=== PATIENT | female | born 1950 | race Caucasian/White ===

== ENCOUNTER 2016-07-05 14:38 | Inpatient (IN) | payer MEDICARE, BC ==
[~2016-07-05] VITALS: Ht 165.1 cm; Wt 110.2 kg
[~2016-07-05 14:38] MED LIST: ACET325T16 PO; ALPR0.5T PO; AMLO10TA2 PO; ASPI81TA2 PO; ASPI81TA50 PO; ATOR10TA60 PO; BUPR300T4 PO; CELE200C PO; CELE400C PO; CHOL20002 PO; CITA20TA5 PO; DULO60CA6 PO; FERR325T31 PO; FURO20TA3 PO; FURO40TA4 PO; GABA-585 PO; GABA-586 PO; HYDR-2666 PO; HYDR-2672 PO; HYDR-2762 PO; HYDR-965 PO; HYDR12.58 PO; HYDR25TA9 PO; LOSA100T6 PO; MELO-150 PO; MULT-246 PO; NIAC500T82 PO; OXYB5TAB7 PO; PIPE3.375 IV; POTA10CA PO; POTA10TA17 PO; VANC1PLA9 IV; Warfarin Sodium MC; vitamin D 3
[2016-07-05] MEDS ORDERED: DAPT500V IV (15:25)
[2016-07-05] MEDS ORDERED: IV RINGERS,LACTATED 1000ML 1,000 ML IV SCH (15:36)
[2016-07-05] MEDS ORDERED: FENTANYL PF 100 MCG/2 ML VIAL. IV PRN ×2 (15:45→22:00)
[2016-07-05] MEDS ORDERED: HYDROMORPHONE 2 MG/ML VIAL. IV PRN (15:45)
[2016-07-05] MEDS ORDERED: PROCHLORPERAZINE 10 MG/2 ML VIAL. IV PRN (15:45)
[2016-07-05] MEDS ORDERED: LIDOCAINE 1% 1 ML SYRINGE. ID PRN (15:45)
[2016-07-05] MEDS ORDERED: ONDANSETRON PF 4 MG/2 ML VIAL. IV PRN ×2 (15:45→22:00)
[2016-07-05] MEDS ORDERED: ONDANSETRON PF 4 MG/2 ML VIAL. ONE (19:20)
[2016-07-05] MEDS ORDERED: PROPOFOL 20 ML IV ONE (19:20)
[2016-07-05] MEDS ORDERED: DEXAMETHASONE SOD PHOS 20 MG/5 ML VIAL. ONE (19:20)
[2016-07-05] MEDS ORDERED: LIDOCAINE 2% 100 MG/5 ML DISP.SYRIN. ONE (19:20)
[2016-07-05] MEDS ORDERED: EPHEDRINE PF IN SALINE 50 MG/5 ML DISP.SYRIN. IV ONE ×2 (19:50→20:23)
[2016-07-05] MEDS ORDERED: FENTANYL PF 100 MCG/2 ML VIAL. ONE (19:55)
[2016-07-05] MEDS ORDERED: BUPIVACAINE 0.5% 50 ML VIAL. ONE (20:43)
[2016-07-05] MEDS ORDERED: DESFLURANE > 120 MINUTES IH ONE (21:06)
[2016-07-05] MEDS ORDERED: SEVOFLURANE > 120 MINUTES. IH ONE (21:06)
[2016-07-05] MEDS ORDERED: PHENYLEPHRINE in 0.9% NACL PF 1 MG/10 ML DISP.SYRIN. IV ONE (21:07)
[2016-07-05] MEDS: FENTANYL PF 100 MCG/2 ML VIAL. IV PRN ×4 (21:22→22:08)
[2016-07-05] MEDS: MORPHINE SULFATE 2 MG/ML DISP.SYRIN. IV PRN ×2 (21:37→21:49)
--- NOTE | 2016-07-05 21:57 | PDOC ---
BRIEF OPERATIVE NOTE Date: Jul 05, 2016 Pre-Op Diagnosis left hip drainage Post-Op Diagnosis same plus partial detachment of greater trochanter and gluteus medius attachment Procedure Performed repair gluteus medius and irrigation debridement and closure left hip Surgeon Florence Anesthesia Type: General Blood Loss <100cc Specimens Obtained intraop cultures Findings above, no gross infection Complications none JAYLEEN SONG MD Jul 05, 2016 21:57
[2016-07-05] MEDS ORDERED: POLYETHYLENE GLYCOL 3350 17 GM PACKET. PO PRN (22:00)
[2016-07-05] MEDS ORDERED: HYDROCODONE/APAP 7.5/325MG TABLET. PO PRN ×3 (22:00)
[2016-07-05] MEDS ORDERED: MORPHINE SULFATE 2 MG/ML DISP.SYRIN. IV PRN (22:00)
[2016-07-05] MEDS ORDERED: MORPHINE SULFATE 4 MG/ML DISP.SYRIN. IV PRN (22:00)
[2016-07-05] MEDS ORDERED: DEXTROSE 50% 25 GM / 50ML DISP.SYRIN. IV PRN (22:00)
[2016-07-05] MEDS ORDERED: OXYCODONE IR 5 MG TABLET. PO PRN (22:00)
[2016-07-05] MEDS ORDERED: ALPRAZOLAM 0.5 MG TABLET PO PRN (22:00)
[2016-07-05 22:15] VITALS: BP 116/53
[2016-07-05] MEDS ORDERED: ATORVASTATIN CALCIUM 10 MG TABLET. PO SCH (22:15)
[2016-07-05 22:30] VITALS: BP 128/69
[2016-07-05 22:45] VITALS: BP 135/72
[2016-07-05 23:00] VITALS: BP 127/58
[2016-07-05 23:30] VITALS: BP 131/65
[2016-07-06] VITALS: BP 142/63
[2016-07-06] MEDS ORDERED: PIPERACILLIN/TAZOBACTAM 3.375 GM VIAL IV SCH
[2016-07-06] MEDS: PIPERACILLIN/TAZOBACTAM 3.375 GM in IV NORMAL SALINE 50ML 50 ML IV SCH ×2 (00:22→05:47)
[2016-07-06 01:00] VITALS: BP 158/63
[2016-07-06 02:00] VITALS: BP 134/61
[2016-07-06] MEDS ORDERED: MAGNESIUM HYDROXIDE 2,400 MG/30 ML ORAL.SUSP. PO PRN (06:00)
[2016-07-06] MEDS ORDERED: CHOLECALCIFEROL (VITAMIN D3) 1,000 UNIT TABLET PO SCH (06:00)
[2016-07-06] MEDS ORDERED: OXYBUTYNIN CHLORIDE 5 MG TABLET PO SCH (06:00)
[2016-07-06 07:00] VITALS: BP 131/64
--- NOTE | 2016-07-06 07:32 | DISCH ---
DISCHARGE INSTRUCTIONS Condition on Discharge Condition on Discharge: Stable Activity After Discharge Activity Instructions for Disc: Activity as tolerated Weight Bearing Status after Di: As tolerated Diet after Discharge Diet after Discharge: Regular Wound Incision Care Wound/Incision Care: Other, see below Other wound/incision instructi: Keep wound vac intact, change canister only, empty hemovac 2x day as needed Wound Care Equipment: Wound vac Contacting the DRCarol after DC Call your doctor for: Concerns you may have Follow-Up Follow up with: Florence 07/08/16 JAYLEEN SONG MD Jul 06, 2016 07:32
--- NOTE | 2016-07-06 08:41 | OP ---
DATE OF SURGERY: 07/05/2016 PREOPERATIVE DIAGNOSIS: Left hip wound drainage. POSTOPERATIVE DIAGNOSIS: Left hip wound drainage. PROCEDURE: Repair of partial gluteus medius bony avulsion and irrigation and debridement and closure of left hip wound. SURGEON: Miguel Henriquez MD. ANESTHESIA: General. ESTIMATED BLOOD LOSS: Less than 100 mL. COMPLICATIONS: None. OPERATIVE INDICATIONS: The patient is a 66-year-old female that had undergone previous hip arthroplasty, had a greater trochanteric avulsion fracture that was fixated, had some subsequent wound healing problems, questionable issues and cultures, but never really any clear infection, but is on antibiotics currently due to her wound drainage problems and has recently had a wound VAC to help with her healing, but had developed some significant tunneling and failure of this area to resolve and heal. We therefore decided to go back to open the area to undergo exploration cultures and potential closure on consultation of options with Infectious Disease, etc. I had gone over with her risks, benefits, postoperative course of the procedure and the rationale for it. Informed consent was obtained and she agrees to proceed with surgical evaluation and treatment. OPERATIVE TECHNIQUE: The patient was identified, procedure verified, patient placed in the supine position on the operating table. After adequate amounts of general endotracheal anesthesia were administered, she was placed in decubitus left side up. All bony prominences were well padded and left hip was prepped and draped in standard sterile fashion and after timeout was performed, the patient and procedure identified and verified. The area of nonhealing wound was opened up more widely, only serous drainage was noted. There was no gross purulence, odor or other signs of devitalized tissue. I did note several issues. Deep tissue cultures were first taken. She was noted to have a partial avulsion of the greater trochanter. A significant portion of her gluteus medius repair remained intact; however, posterior portion was noted to have avulsed and after debridement of the superior aspect of the tip of the femur, the attached bony fragment and posterior aspect of gluteus medius were reattached with Ethibond suture underneath the trochanteric claw. I noted that while the claw itself could be potentially causing some irritation and not fluid in the area of the hip, removing that would likely result in significant weaknesses, it would be difficult to support the repair and would really not be advised. I did note also that the areas of having difficulty healing were generally scarred down to deeper tissue and were gently elevated. The devitalized tissue was obtained, but any excess proteinaceous exudate was removed. Thorough irrigation carried out with normal saline solution. Hemovac drain was placed deep. Closure of the fascia was obtained with 0 PDS suture. Layered closure of the subcutaneous layer was likewise obtained with 0 PDS primarily in buried fashion very meticulous in a layered closure. Skin closure was accomplished after instillation of 0.5% Marcaine as she appeared to be reacting strongly to any stimulus at the skin even under anesthesia. Skin closure was accomplished with nylon suture 2-0 in a vertical mattress fashion for best apposition and a wound VAC was placed. Sterile dressings were applied. The patient was extubated and transferred to postop holding in stable condition having tolerated the procedure well. MIGUEL HENRIQUEZ MD DR: TANNER/keyanna JOB#: [id number] / [id number]
[2016-07-06] MEDS ORDERED: buPROPion XL 150 MG TAB.ER.24H PO SCH (09:00)
[2016-07-06] MEDS ORDERED: DAPTOMYCIN 500 MG VIAL IV SCH (09:00)
[2016-07-06] MEDS ORDERED: LOSARTAN POTASSIUM 50 MG TABLET. PO SCH (09:00)
[2016-07-06] MEDS ORDERED: AMLODIPINE BESYLATE 10 MG TABLET PO SCH (09:00)
[2016-07-06] MEDS ORDERED: GABAPENTIN 300 MG CAPSULE. PO SCH (09:00)
[2016-07-06] MEDS ORDERED: DULOXETINE HCL 30 MG CAPSULE.DR. PO SCH (09:00)
[2016-07-06] MEDS ORDERED: NORMAL SALINE IV SCH (09:00)
[2016-07-06] MEDS ORDERED: SENNOSIDES/DOCUSATE 8.6/50MG TABLET. PO SCH (09:00)
[2016-07-06] MEDS ORDERED: DAPTOMYCIN IV SCH (09:00)
[2016-07-06 09:51] VITALS: BP 131/64
[2016-07-06] MEDS ORDERED: BISACODYL 10 MG SUPP.RECT PR PRN (16:00)
--- NOTE | 2016-07-06 19:57 | DS ---
DATE OF DISCHARGE: 07/06/2016 PRINCIPAL DIAGNOSIS: Left hip wound drainage and partial gluteus medius injury. FOLLOWUP: With Dr. Henriquez 07/08/2016. ACTIVITIES: Weightbearing as tolerated. No activity restrictions. DISCHARGE MEDICATIONS: Include complete resumption of her normal home medications including IV antibiotics directed by Infectious Disease. Hemovac drain was maintained and is intended to be removed in the office on Monday. DISCHARGE INSTRUCTIONS: I gave the patient instructions on changing and recharging the drain. Wound VAC will be kept on currently with no changes planned at least until Monday at which time we will reevaluate and cannister change only would be required if it gets ____ up. BRIEF DESCRIPTION OF HOSPITAL COURSE: The patient underwent irrigation, debridement and repair of the partial gluteus medius injury and was admitted overnight and overall did well from a pain control standpoint, was noted to be ambulating safely the next day. While her antibiotics were continued in the hospital, we will plan on restarting the home health antibiotics as directed by Infectious Disease for planned course of another 4 weeks and follow up on Monday for reassessment and management of t the drains as noted above. JAYLEEN HENRIQUEZ MD DR: TANNER/keyanna JOB#: [id number] / [id number]
== END 2016-07-06 10:30 | disposition home health service (06) | DRG 909 ==
LOC: SURG 14:38 → 4 NORTH 19:00
PROVIDERS: ADMIT Orthopaedic Surgery; ATTEND Orthopaedic Surgery
PROC: 0LMK0ZZ Reattachment of Left Hip Tendon, Open Approach (ICD-10-PCS; 2016-07-05)
PROC: [UNRECOGNIZED PROCEDURE] (2016-07-05)
PROC: 0KQP0ZZ Repair Left Hip Muscle, Open Approach (ICD-10-PCS; 2016-07-05)
PROC: 0JDC0ZZ Extraction of Pelvic Region Subcutaneous Tissue and Fascia, Open Approach (ICD-10-PCS; 2016-07-05)
PROC: 0JDM0ZZ Extraction of Left Upper Leg Subcutaneous Tissue and Fascia, Open Approach (ICD-10-PCS; principal; 2016-07-05 16:00)
DX: M96.842 Postprocedural seroma of a musculoskeletal structure following a musculoskeletal system procedure (principal); E78.00 Pure hypercholesterolemia, unspecified; I10 Essential (primary) hypertension; Z96.642 Presence of left artificial hip joint; Y93.89 Activity, other specified; Y92.89 Other specified places as the place of occurrence of the external cause; Z88.0 Allergy status to penicillin; Z88.2 Allergy status to sulfonamides; Z90.49 Acquired absence of other specified parts of digestive tract; Z79.899 Other long term (current) drug therapy; S71.00 Unspecified open wound of hip
CPT/HCPCS: 87071; 87075; 87205; J1100; J2270; J2370; J2405; J2543; J2704; J3010; J3490; J7030

== ENCOUNTER 2016-08-16 23:09 | Emergency (ER) | payer MEDICARE, BC ==
[~2016-08-16] VITALS: Ht 162.6 cm; Wt 98.4 kg
[~2016-08-16 23:09] MED LIST changes: +DAPT500V IV
--- NOTE | 2016-08-17 00:53 | PHYS DOC ---
Past Medical History Past Medical History: Depression, High Cholesterol, Hypertension, Kidney Stone , Other Additional Past Medical Histor: obesity, celiac, sleep apnea Past Surgical History: Cholecystectomy, Hip Replacement Additional Past Surgical Histo: pericardial window,left shoulder replacement, hernia repair,left ovary tumo Alcohol Use: None Drug Use: None Adult General Chief Complaint Chief Complaint: MECHANICAL FALL HPI HPI 66-year-old female who had a fall down approximately 13 steps after she states her right leg gave way. She does believe she hit her head. She is complaining of some right-sided foot and ankle pain as well as left-sided hip pain and some left shoulder pain. She cleans up and neck pain and has a left-sided occipital hematoma. Patient is fully alert and oriented and able answer all my questions and follow my commands. She does have some complicated history with her left hip and states she has an artificial hip on that side as required multiple revisions within the last 8-9 months. She denies any recent illness. She denies any pain or shortness of breath. She denies any cough. Review of Systems Review of Systems Constitutional: Denies fever or chills [] Eyes: Denies change in visual acuity, redness, or eye pain [] HENT: Denies nasal congestion or sore throat [] Respiratory: Denies cough or shortness of breath [] Cardiovascular: No additional information not addressed in HPI [] GI: Denies abdominal pain, nausea, vomiting, bloody stools or diarrhea [] : Denies dysuria or hematuria [] Musculoskeletal: Denies back pain or joint pain [] Integument: Denies rash or skin lesions [] Neurologic: Denies headache, focal weakness or sensory changes [] Endocrine: Denies polyuria or polydipsia [] Current Medications Current Medications Current Medications Medications (Trade) Dose Ordered Sig/[facility] Start Time Stop Time Status Last Admin Dose Admin Fentanyl Citrate (Fentanyl 2ml Vial) 50 mcg 1X ONCE 08/17/16 01:30 08/17/16 01:31 DC 08/17/16 01:42 50 MCG Allergies Allergies Allergies Coded Allergies Type Severity Reaction Last Updated Verified Penicillins Allergy Intermediate Rash 07/05/16 Yes Sulfa (Sulfonamide Antibiotics) Adverse Reaction Intermediate Nausea 07/05/16 Yes Physical Exam Physical Exam Constitutional: Well developed, well nourished, no acute distress, non-toxic appearance. [] HENT: Normocephalic, traumatic, left sided occipital hematoma, bilateral external ears normal, oropharynx moist, no oral exudates, nose normal. [] Eyes: PERRLA, EOMI, conjunctiva normal, no discharge. [] Neck: Normal range of motion, no tenderness, supple, no stridor. [] Cardiovascular:Heart rate regular rhythm, no murmur [] Lungs & Thorax: Bilateral breath sounds clear to auscultation [] Abdomen: Bowel sounds normal, soft, no tenderness, no masses, no pulsatile masses. [] Skin: Warm, dry, no erythema, no rash. [] Back: No tenderness, no CVA tenderness. [] Extremities: Moderate left sided hip tenderness, no cyanosis, no clubbing, ROM intact, no edema. [] Neurologic: Alert and oriented X 3, normal motor function, normal sensory function, no focal deficits noted. [] Psychologic: Affect normal, judgement normal, mood normal. [] Current Patient Data Vital Signs Vital Signs Date Time Temp Pulse Resp B/P Pulse Ox O2 Delivery O2 Flow Rate FiO2 08/17/16 02:37 86 16 134/63 96 Room Air 08/16/16 23:13 97.4 97.4 EKG EKG [] Radiology/Procedures Radiology/Procedures CT of the head and cervical spine without contrast demonstrated the following: CT cervical spine without contrast Indication: Fall and neck injury. Axial imaging through the cervical spine was performed without contrast. Sagittal and coronal reformations were also performed. PQRS STATEMENT One or more of the following individualized dose reduction techniques were utilized for this study: 1.Automated exposure control. 2.Adjustment of the mA and/orkVaccording to patient size. 3.Use of iterative reconstruction technique. There is reversal of the normal cervical lordotic curvature. Minimal anterolisthesis of C3 on C4 is seen. There is multilevel degenerative disc disease, greatest C4-5, C5-6 and C6-7 levels with disc space narrowing and marginal spurring. No fractures are identified. There is multilevel degenerative facet disease as well, greatest on the left. Odontoid is intact. Impression: Cervical spondylosis. No acute bony abnormality is detected. Electronically signed by: Jad Aguirre MD (Aug 17, 2016 02:02:08) DICTATED AND SIGNED BY: JAD AGUIRRE MD DATE: 08/17/16 0059 CC: ERIC WHITING MD; KIRILL SOLIS DO ~ CT head without contrast Indication: Fall with head and neck injury. Axial imaging through the brain was performed without contrast. PQRS STATEMENT One or more of the following individualized dose reduction techniques were utilized for this study: 1.Automated exposure control. 2.Adjustment of the mA and/orkVaccording to patient size. 3.Use of iterative reconstruction technique. Comparison is made with head CT from 01/24/2016. There is soft tissue swelling in the left posterior parietal scalp. The ventricles and sulci are within normal limits. No sulcal effacement, midline shift or hemorrhage is detected. The cisterns are patent. The visualized paranasal sinuses are clear. No depressed calvarial fracture is seen. Impression: Left posterior parietal scalp swelling. No acute intracranial process is detected. Electronically signed by: Jad Aguirre MD (Aug 17, 2016 00:59:38) Plain films of the left hip and AP pelvis as interpreted by the radiologist demonstrated postop changes on the left no acute bony abnormalities detected. Portable one view of the chest as interpreted by me not reveal any acute abnormality. Right ankle three-view as interpreted by me did not reveal any obvious fracture or bony abnormalities. Left shoulder views as internal by me did not reveal any obvious fracture. Right foot views as interpreted by me did not reveal any obvious fractures. Course & Med Decision Making Course & Med Decision Making Pertinent Labs and Imaging studies reviewed. (See chart for details) This 66-year-old female had plain films do not reveal any obvious fractures. She was counseled length that radiology would call back there any acute findings found. She was placed in a fracture shoe and ambulated around with her walker without difficulty. She states she feels significantly improved. CT of her head neck did not reveal any acute findings. She has multiple follow-up appointments tomorrow for which I told her to continue to keep enough follow closely with her primary care doctor as well. I do not see an indication to start in the form any laboratory workup. Her orthostatics were negative. She was discharged without incident. Dragon Disclaimer Dragon Disclaimer This electronic medical record was generated, in whole or in part, using a voice recognition dictation system. Departure Departure Impression: Primary Impression: Fall Disposition: 01 HOME, SELF-CARE Admitting Physician: Other Condition: STABLE Referrals: ERIC WHITING MD (PCP) Patient Instructions: Fall Prevention and Home Safety, [id number] Additional Instructions: Please continue to rest and avoid any strenuous activities. Use your walker and avoid using stairs for the next few days. Please keep all your follow up appointments as discussed and follow up closely with your primary doctor in the next 2-3 days. Return to the ER if you develop any significant weakness or worsening of your pain. Use ice pack to your area of swelling as needed every few hours. KIRILL SOLIS DO Aug 17, 2016 00:53
--- NOTE | 2016-08-17 01:02 | RAD ---
CT head without contrast Indication: Fall with head and neck injury. Axial imaging through the brain was performed without contrast. PQRS STATEMENT One or more of the following individualized dose reduction techniques were utilized for this study: 1.Automated exposure control. 2.Adjustment of the mA and/orkVaccording to patient size. 3.Use of iterative reconstruction technique. Comparison is made with head CT from 01/24/2016. There is soft tissue swelling in the left posterior parietal scalp. The ventricles and sulci are within normal limits. No sulcal effacement, midline shift or hemorrhage is detected. The cisterns are patent. The visualized paranasal sinuses are clear. No depressed calvarial fracture is seen. Impression: Left posterior parietal scalp swelling. No acute intracranial process is detected. Electronically signed by: aJd Aguirre MD (Aug 17, 2016 00:59:38)
--- NOTE | 2016-08-17 01:28 | RAD ---
Hip left two views with pelvis Indication: Fall and left hip pain. Time of exam 12:41 a.m. AP view of the pelvis demonstrates postop changes of left total hip arthroplasty. The prosthetic elements appear to be in good position. The right hip demonstrates normal femoral acetabular alignment. The rami are unremarkable. The left hip also contains a lateral plate and cerclage wires. Impression: Postop changes on the left. No acute bony abnormality is detected. Electronically signed by: Jad Aguirre MD (Aug 17, 2016 01:26:57)
[2016-08-17] MEDS ORDERED: FENTANYL PF 100 MCG/2 ML VIAL. IV ONE ×2 (01:30)
[2016-08-17 02:37] VITALS: BP 134/63
--- NOTE | 2016-08-17 07:18 | RAD ---
Right ankle, 3 views, 08/17/2016: History: Fall, ankle pain A calcific density at the tip of the medial malleolus is well corticated and most likely represents an old fracture fragment or accessory ossicle. The bony structures are demineralized. No acute fracture or dislocation is identified. Right foot, 3 views, 08/17/2016: There are mild degenerative changes at the midfoot level and at scattered MTP and interphalangeal joints. No acute fracture or dislocation is identified. There is a moderate sized inferior calcaneal spur. There is subcutaneous edema about the foot. IMPRESSION: 1. Demineralization. 2. Mild scattered degenerative changes. 3. No acute bony abnormality is detected.
--- NOTE | 2016-08-17 07:20 | RAD ---
Left shoulder, 3 views, 08/17/2016: History: Fall, shoulder pain Comparison is made to a study from 09/04/2013. There has been a previous reverse total shoulder arthroplasty. The prosthesis appears to be unchanged in position. No acute fracture or dislocation is identified. Moderate degenerative change is present at the AC joint. Several old healed rib fractures are noted. IMPRESSION: 1. A left shoulder prosthesis is in place. 2. No acute abnormality is detected.
--- NOTE | 2016-08-17 07:21 | RAD ---
AP chest, 08/17/2016: History: Shortness of breath Comparison is made to a study from 05/21/2016. There is unchanged mild elevation of right hemidiaphragm. The heart size and pulmonary vascularity are normal. There is calcific plaquing of the aorta. No acute infiltrate is seen. There is no evidence of pleural fluid or pneumothorax. The bony structures are demineralized. IMPRESSION: No acute cardiopulmonary abnormality is detected.
== END 2016-08-17 02:47 | disposition home or self-care (01) ==
LOC: ER 23:09
DX: S00.03XA Contusion of scalp, initial encounter (principal); M25.512 Pain in left shoulder; M25.552 Pain in left hip; M25.571 Pain in right ankle and joints of right foot; M54.2 Cervicalgia; I10 Essential (primary) hypertension; G47.30 Sleep apnea, unspecified; F32.9 Major depressive disorder, single episode, unspecified; E78.00 Pure hypercholesterolemia, unspecified; E66.9 Obesity, unspecified; Z68.37 Body mass index [BMI] 37.0-37.9, adult; Z88.0 Allergy status to penicillin; Z88.2 Allergy status to sulfonamides; Z96.642 Presence of left artificial hip joint; Z96.612 Presence of left artificial shoulder joint; Z87.442 Personal history of urinary calculi; W10.9XXA Fall (on) (from) unspecified stairs and steps, initial encounter; Y93.89 Activity, other specified; Y92.89 Other specified places as the place of occurrence of the external cause; Y99.8 Other external cause status
CPT/HCPCS: 70450; 71010; 72125; 73030; 73502; 73610; 73630; 96374; 96376; 99284; J3010

== ENCOUNTER → 2016-11-30 | Outpatient (CLI) | payer MEDICARE, BC ==
[~2016-11-30] MED LIST changes: +ASPI-630 PO; -ASPI81TA2 PO; +FERR-36 PO; -FERR325T31 PO; -HYDR-2666 PO; -HYDR-2672 PO; +HYDR-2758 PO; +HYDR-2766 PO; -MELO-150 PO; +MELO15TA23 PO; -POTA10CA PO; +POTASSIUM CHLO10 MEQ PO
--- NOTE | 2016-11-30 10:08 | RAD ---
DATE: November 30, 2016 EXAM: DIGITAL SCREEN BILAT W/CAD HISTORY: Screening. COMPARISON: February 27, 2014 This study was interpreted with the benefit of Computerized Aided Detection (CAD). FINDINGS: The breast parenchyma is primarily fatty replaced. There are no dominant suspicious masses, suspicious microcalcifications or evidence of architectural distortion. IMPRESSION: No mammographic indicators for malignancy. BI-RADS CATEGORY: 1 NEGATIVE RECOMMENDED FOLLOW-UP: 12M 12 MONTH FOLLOW-UP PQRS compliance statement: Patient information was entered into a reminder system with a target due date December 01, 2017 for the next mammogram. Mammography is a sensitive method for finding small breast cancers, but it does not detect them all and is not a substitute for careful clinical examination. A negative mammogram does not negate a clinically suspicious finding and should not result in delay in biopsying a clinically suspicious abnormality. "Our facility is accredited by the [employer] Mammography Program." The patient's breast density may affect the ability of mammography to detect breast cancer. There are 4 categories of breast density, A, B, C and D. Breast density A means that most of the breast tissue is replaced with adipose tissue and therefore is not dense. Breast density B means that the breast tissue is mildly dense and scattered. Breast density C means that the breast tissue is heterogeneously dense. Breast density D means that the breast tissue is very dense. Breast densities especially C and D may decrease the sensitivity of mammography to detect breast cancer. Therefore, the patient may benefit from 3-D breast mammography (3D breast tomography) as a part of their screening mammogram. Insurance may or may not pay for this additional imaging. The patient's breast density based on today's mammogram is category A.
== END | disposition home or self-care (01) ==
LOC: MAMMO 08:51
PROVIDERS: ATTEND Family Medicine
DX: Z12.31 Encounter for screening mammogram for malignant neoplasm of breast (principal)
CPT/HCPCS: G0202; 77067

== ENCOUNTER 2017-01-07 10:45 | Inpatient (IN) | payer MEDICARE, BC ==
[~2017-01-07] VITALS: Ht 162.6 cm; Wt 102.1 kg
[2017-01-07] MEDS ORDERED: 0.9 % SODIUM CHLORIDE 10 ML DISP.SYRIN. IV PRN (11:00)
[2017-01-07] MEDS ORDERED: IV NORMAL SALINE 1000ML BAG 1,000 ML IV SCH (11:15)
[2017-01-07 11:18] LABS: BASO # 0.1 x10^3/uL (0.0-0.2); BASO % 1 % (0-3); EOS % 2 % (0-3); HEMATOCRIT 39.6 % (36.0-47.0); HEMOGLOBIN 12.2 g/dL (12.0-15.5); LYMPH # 2.9 x10^3/uL (1.0-4.8); LYMPH % 25 % (24-48); MEAN CORPUSCULAR HEMOGLOBIN 23 pg (25-35); MEAN CORPUSCULAR HGB CONC 31 g/dL (31-37); MEAN CORPUSCULAR VOLUME 75 fL (79-100); MONO % 8 % (0-9); NEUT % 64 % (31-73); PLATELET COUNT 365 x10^3/uL (140-400); RED BLOOD COUNT 5.31 x10^6/uL (3.50-5.40); RED CELL DISTRIBUTION WIDTH 19.7 % (11.5-14.5); WHITE BLOOD COUNT 11.7 x10^3/uL (4.0-11.0)
[2017-01-07 11:30] LABS: CALCIUM 10.3 mg/dL (8.5-10.1); CREATININE 0.7 mg/dL (0.6-1.0); GFR 83.5; POTASSIUM 3.8 mmol/L (3.5-5.1)
[2017-01-07 11:33] LABS: ALBUMIN 3.6 g/dL (3.4-5.0); DIRECT BILIRUBIN 0.1 mg/dL (0.0-0.2); TOTAL BILIRUBIN 0.4 mg/dL (0.2-1.0); TOTAL PROTEIN 7.1 g/dL (6.4-8.2)
[2017-01-07 11:42] LABS: CKMB MASS 14.1 ng/mL (0.0-3.6)
--- NOTE | 2017-01-07 11:46 | RAD ---
Indication frequent falls weakness. Change in mental status. Noncontrast images of the head were obtained. Note is made of a previous examination 08/17/2016. The calvarium appears unremarkable. The visualized paranasal sinuses appear unremarkable. There is no subdural or epidural hematoma. There is no mass or midline shift. There is some enlargement of the cisterna magna, a normal variant. No hemorrhage acute finding or significant change when compared to the previous exam is seen. IMPRESSION:: No acute finding seen in the head PQRS Compliance Statement: One or more of the following individualized dose reduction techniques were utilized for this examination: 1. Automated exposure control 2. Adjustment of the mA and/or kV according to patient size 3. Use of iterative reconstruction technique
--- NOTE | 2017-01-07 11:55 | RAD ---
Indication frequent falls. Weakness. Axial images through the lumbar spine were obtained and reformatted in the coronal and sagittal planes. In those portions of the abdomen and pelvis which are seen left renal calculi are noted. There is a 3 cm mass associated with the right kidney compatible with a cyst. Vertebral height is well maintained. There is vacuum disc phenomenon at L2-3. Osteophytes are seen anteriorly and posteriorly at multiple levels. There is mild anterior spondylolisthesis of L4 relative to L5. An acute bony finding is not seen. Facet degenerative changes are noted most pronounced at L4-5 and L5-S1. A right laminectomy defect is noted at L5. There is no evidence of spinal stenosis or significant foraminal encroachment and the visualized lower thoracic spine. There is partial calcification of the disc and are osteophyte formation at L1-2. There is slight canal narrowing at this level. There is disc bulging at L2-3 with some associated ligamentum flavum hypertrophy with again mild canal narrowing at this level. At L3-4 there is slight left foraminal encroachment. There is again disc bulging and some ligamentum flavum hypertrophy with associated mild canal narrowing. There is slight canal narrowing at L4-5. L5-S1 appears unremarkable. IMPRESSION: No acute finding in the lumbar spine. Spondylitic changes in the lumbar spine as outlined above. Mild canal narrowing noted at multiple levels PQRS Compliance Statement: One or more of the following individualized dose reduction techniques were utilized for this examination: 1. Automated exposure control 2. Adjustment of the mA and/or kV according to patient size 3. Use of iterative reconstruction technique
[2017-01-07 12:09] LABS: BILIRUBIN,URINE NEGATIVE (NEG); GLUCOSE,URINE NEGATIVE (NEG); NITRITE,URINE NEGATIVE (NEG); PROTEIN,URINE NEGATIVE (NEG-TRACE); UROBILINOGEN,URINE 0.2 mg/dL (0.2 mg/dL)
--- NOTE | 2017-01-07 12:18 | PHYS DOC ---
Past Medical History Past Medical History: Depression, High Cholesterol, Hypertension, Kidney Stone , Other Additional Past Medical Histor: obesity, celiac, sleep apnea,vision problems Past Surgical History: Cholecystectomy, Hip Replacement Additional Past Surgical Histo: pericardial window,left shoulder replacement, hernia repair,left ovary tumo Alcohol Use: None Drug Use: None Adult General Chief Complaint Chief Complaint: MECHANICAL FALL HPI HPI This is a pleasant 66-year-old female with history of recent hip replacement on the left with subsequent femur fracture and surgical repair was had an issue with increasing weakness and pain in her hip and falls to the ground from standing position. Over the last several weeks she's had increasing weakness in her lower extremity specifically her left leg more than her right with falls to the ground injuring her knees. She describes it injuring his as aching and throbbing worse with range of motion and walking. She has at times been unable to get up under her own power secondary to pain and weakness. She denies any back pain denies any neck pain at this new. She does have a history of chronic neck pain and intermittent headaches. She has had a prior head injury past. She denies any new injuries with this fall today. She says her main complaint is that she is feeling depressed and that she is having this increased weakness where she is not able to take care of herself on a daily basis and the axis of daily living are completely more difficult to deal with. Denies any shortness of breath denies abdominal pain. Just has incredible weakness in her left lower extremity. She denies any change in medications, UTI symptoms URI symptoms or fevers. Her weakness could be any of the following in this differential includes but not limited to: Neurally mediated vasovagal syncope, situational syncope, cardiac sinus syncope , orthostatic hypertension, medications, psychiatric interventions, neurologic syncope, cardiogenic syncopal B, to include organic heart disease congestive heart failure, cardiac dysrhythmia, seizure disorder, stroke or transient ischemic attack, bradycardia dysrhythmias, tachycardia dysrhythmias, PT, V. fib V. fib, cardiac abnormalities like first degree secondary third-degree AV blocks , prolonged QT, hypertrophic Mk myopathy, severe pulmonic stenosis, pulmonary arterial hypertension, atrial myxomas, aortic stenosis, valvular failure, alcohol consumption, adrenal insufficiency, drug effects from things like antidepressants, antihypertensive agents like beta blockers, vasodilators including calcium channel blockers and nitrates, autonomic insufficiency. Review of Systems Review of Systems Constitutional: Denies fever or chills was of generalized weakness Eyes: Denies change in visual acuity, redness, or eye pain [] HENT: Denies nasal congestion or sore throat [] Respiratory: Denies cough or does express some dyspnea on exertion without chest pain. Cardiovascular: No additional information not addressed in HPI [] GI: Denies abdominal pain, nausea, vomiting, bloody stools or diarrhea [] : Denies dysuria or hematuria [] Musculoskeletal: Denies back pain or joint pain [] Integument: Denies rash or skin lesions [] Neurologic: Denies headache, does complain of generalized weakness specifically in the left lower leg Endocrine: Denies polyuria or polydipsia [] Current Medications Current Medications Current Medications Medications (Trade) Dose Ordered Sig/Priscila Start Time Stop Time Status Last Admin Dose Admin Lorazepam (Ativan) 1 mg 1X ONCE 01/07/17 11:15 01/07/17 11:16 DC 01/07/17 11:07 1 MG Sodium Chloride (Normal Saline Flush) 10 ml QSHIFT PRN 01/07/17 11:00 Allergies Allergies Allergies Coded Allergies Type Severity Reaction Last Updated Verified Penicillins Allergy Intermediate Rash 07/05/16 Yes Sulfa (Sulfonamide Antibiotics) Adverse Reaction Intermediate Nausea 07/05/16 Yes Physical Exam Physical Exam This patient's vital signs demonstrate hypoxia without tachypnea or tachycardia patient demonstrates hypertension. Constitutional: Well developed, well nourished, no acute distress, non-toxic appearance. [] HENT: Normocephalic, atraumatic, bilateral external ears normal, oropharynx moist, no oral exudates, nose normal. [] Eyes: PERRLA, EOMI, conjunctiva normal, no discharge. [] Neck: Normal range of motion, no tenderness, supple, no stridor. [] Cardiovascular:Heart rate regular rhythm, no murmur [] Lungs & Thorax: Bilateral breath sounds clear to auscultation [] Abdomen: Bowel sounds normal, soft, no tenderness, no masses, no pulsatile masses. [] Skin: Warm, dry, no erythema, no rash. [] Back: No tenderness, no CVA tenderness. [] Extremities: Patient's has some tenderness to the anterior portion of the patellas bilaterally right greater than left with marked soft tissue swelling or ecchymosis. Neurologic: Alert and oriented X 3, isn't has some weakness in the left lower extremity although it's +5 out of 5 strength gravity. It is markedly weaker than the right leg. Psychologic: Affect normal, judgement normal, mood normal. [] On arrival NIHSS: 0 1a. Level of consciousness: 0 = Alert; keenly responsive. 1 = Not alert; but arousable by minor stimulation to obey, answer, or respond. 2 = Not alert; requires repeated stimulation to attend, or is obtunded and requires strong or painful stimulation to make movements (not stereotyped). 3 = Responds only with reflex motor or autonomic effects or totally unresponsive , flaccid, and areflexic. 1b. LOC questions: 0 = Answers both questions correctly. 1 = Answers one question correctly. 2 = Answers neither question correctly. 1c. LOC commands: 0 = Performs both tasks correctly. 1 = Performs one task correctly. 2 = Performs neither task correctly. 2. Best gaze: 0 = Normal. 1 = Partial gaze palsy; gaze is abnormal in one or both eyes, but forced deviation or total gaze paresis is not present. 2 = Forced deviation, or total gaze paresis not overcome by the oculocephalic maneuver. 3. Visual: 0 = No visual loss. 1 = Partial hemianopia. 2 = Complete hemianopia. 3 = Bilateral hemianopia (blind including cortical blindness). 4. Facial palsy: 0 = Normal symmetrical movements. 1 = Minor paralysis (flattened nasolabial fold, asymmetry on smiling). 2 = Partial paralysis (total or near-total paralysis of lower face). 3 = Complete paralysis of one or both sides (absence of facial movement in the upper and lower face). 5. Motor arm: 0 = No drift; limb holds 90 (or 45) degrees for full 10 seconds. 1 = Drift; limb holds 90 (or 45) degrees, but drifts down before full 10 seconds ; does not hit bed or other support. 2 = Some effort against gravity; limb cannot get to or maintain (if cued) 90 ( or 45) degrees, drifts down to bed, but has some effort against gravity. 3 = No effort against gravity; limb falls. 4 = No movement. UN = Amputation or joint fusion, explain: 5a. Left arm 5b. Right arm 6. Motor le = No drift; leg holds 30-degree position for full 5 seconds. 1 = Drift; leg falls by the end of the 5-second period but does not hit bed. 2 = Some effort against gravity; leg falls to bed by 5 seconds, but has some effort against gravity. 3 = No effort against gravity; leg falls to bed immediately. 4 = No movement. UN = Amputation or joint fusion, explain: 6a. Left leg 6b. Right leg 7. Limb ataxia: 0 = Absent. 1 = Present in one limb. 2 = Present in two limbs. UN = Amputation or joint fusion 8. Sensory: 0 = Normal; no sensory loss. 1 = Hqiz-cc-udmzurze sensory loss; patient feels pinprick is less sharp or is dull on the affected side; or there is a loss of superficial pain with pinprick , but patient is aware of being touched. 2 = Severe to total sensory loss; patient is not aware of being touched in the face, arm, and leg. 9. Best language: 0 = No aphasia; normal. 1 = Icwa-gd-vhiywtem aphasia; some obvious loss of fluency or facility of comprehension, without significant limitation on ideas expressed or form of expression. Reduction of speech and/or comprehension, however, makes conversation about provided materials difficult or impossible. For example, in conversation about provided materials, examiner can identify picture or naming card content from patient's response. 2 = Severe aphasia; all communication is through fragmentary expression; great need for inference, questioning, and guessing by the listener. Range of information that can be exchanged is limited; listener carries burden of communication. Examiner cannot identify materials provided from patient response. 3 = Mute, global aphasia; no usable speech or auditory comprehension. 10. Dysarthria: 0 = Normal. 1 = Evan-lg-kncblqqz dysarthria; patient slurs at least some words and, at worst , can be understood with some difficulty. 2 = Severe dysarthria; patient's speech is so slurred as to be unintelligible in the absence of or out of proportion to any dysphasia, or is mute/anarthric. UN = Intubated or other physical barrier, explain: 11. Extinction and inattention (formerly neglect): 0 = No abnormality. 1 = Visual, tactile, auditory, spatial, or personal inattention or extinction to bilateral simultaneous stimulation in one of the sensory modalities. 2 = Profound soco-inattention or extinction to more than one modality; does not recognize own hand or orients to only one side of space. Current Patient Data Vital Signs Vital Signs Date Time Temp Pulse Resp B/P (MAP) Pulse Ox O2 Delivery O2 Flow Rate FiO2 01/07/17 10:50 98.0 90 22 156/78 (104) 90 Room Air 98.0 Lab Values Laboratory Tests Test 01/07/17 11:05 White Blood Count 11.7 x10^3/uL (4.0-11.0) H Red Blood Count 5.31 x10^6/uL (3.50-5.40) Hemoglobin 12.2 g/dL (12.0-15.5) Hematocrit 39.6 % (36.0-47.0) Mean Corpuscular Volume 75 fL (79-100) L Mean Corpuscular Hemoglobin 23 pg (25-35) L Mean Corpuscular Hemoglobin Concent 31 g/dL (31-37) Red Cell Distribution Width 19.7 % (11.5-14.5) H Platelet Count 365 x10^3/uL (140-400) Neutrophils (%) (Auto) 64 % (31-73) Lymphocytes (%) (Auto) 25 % (24-48) Monocytes (%) (Auto) 8 % (0-9) Eosinophils (%) (Auto) 2 % (0-3) Basophils (%) (Auto) 1 % (0-3) Neutrophils # (Auto) 7.5 x10^3uL (1.8-7.7) Lymphocytes # (Auto) 2.9 x10^3/uL (1.0-4.8) Monocytes # (Auto) 1.0 x10^3/uL (0.0-1.1) Eosinophils # (Auto) 0.2 x10^3/uL (0.0-0.7) Basophils # (Auto) 0.1 x10^3/uL (0.0-0.2) Sodium Level 145 mmol/L (136-145) Potassium Level 3.8 mmol/L (3.5-5.1) Chloride Level 106 mmol/L (98-107) Carbon Dioxide Level 32 mmol/L (21-32) Anion Gap 7 (6-14) Blood Urea Nitrogen 21 mg/dL (7-20) H Creatinine 0.7 mg/dL (0.6-1.0) Estimated GFR (Cockcroft-Gault) 83.5 Glucose Level 89 mg/dL (70-99) Calcium Level 10.3 mg/dL (8.5-10.1) H Magnesium Level 2.0 mg/dL (1.8-2.4) Total Bilirubin 0.4 mg/dL (0.2-1.0) Direct Bilirubin 0.1 mg/dL (0.0-0.2) Aspartate Amino Transferase (AST) 36 U/L (15-37) Alanine Aminotransferase (ALT) 36 U/L (14-59) Alkaline Phosphatase 84 U/L (46-116) Creatine Kinase 593 U/L (26-192) H Creatine Kinase MB (Mass) 14.1 ng/mL (0.0-3.6) H Creatine Kinase MB Relative Index 2.4 % (0-4) DA-Gbi-T-Type Natriuretic Peptide 249 pg/mL (0-124) H Total Protein 7.1 g/dL (6.4-8.2) Albumin 3.6 g/dL (3.4-5.0) Thyroid Stimulating Hormone (TSH) 1.806 uIU/mL (0.358-3.74) Laboratory Tests 01/07/17 11:05 Laboratory Tests 01/07/17 11:05 Laboratory Tests Test 01/07/17 11:05 Alanine Aminotransferase (ALT/SGPT) 36 U/L (14-59) Creatinine 0.7 mg/dL (0.6-1.0) AY-Xsz-F-Type Natriuretic Peptide 249 pg/mL (0-124) Thyroid Stimulating Hormone (TSH) 1.806 uIU/mL (0.358-3.74) EKG EKG [] His EKG timed 10:58 AM or 01/07/2017 patient's EKG demonstrates a heart rate of 75 with frequent PVCs there is an irregular beat with frequent PVCs in various morphologies. This is similar T-wave changes consistent with acute cardiac ischemia. EKG read by Dr. Marques Radiology/Procedures Radiology/Procedures [] [address] [id number] IMAGING REPORT Signed PATIENT: BENY TYLER ACCOUNT: [id number] : 1950 LOCATION: ER AGE: 66 SEX: F EXAM STATUS: PRE ER ORD. PHYSICIAN: HU MARQUES MD REASON: weakness PROCEDURE: CT HEAD WO CONTRAST Indication frequent falls weakness. Change in mental status. Noncontrast images of the head were obtained. Note is made of a previous examination 08/17/2016. The calvarium appears unremarkable. The visualized paranasal sinuses appear unremarkable. There is no subdural or epidural hematoma. There is no mass or midline shift. There is some enlargement of the cisterna magna, a normal variant. No hemorrhage acute finding or significant change when compared to the previous exam is seen. IMPRESSION:: No acute finding seen in the head PQRS Compliance Statement: One or more of the following individualized dose reduction techniques were utilized for this examination: 1. Automated exposure control 2. Adjustment of the mA and/or kV according to patient size 3. Use of iterative reconstruction technique DICTATED and SIGNED BY: PAWAN CHANDRA MD DATE: 01/07/17 1140 CC: HU MARQUES MD; ERIC WHITING MD ~ [address] [phone] IMAGING REPORT Signed PATIENT: BENY TYLER ACCOUNT: [id number] : 1950 LOCATION: ER AGE: 66 SEX: F EXAM STATUS: PRE ER ORD. PHYSICIAN: HU MARQUES MD REASON: weakness PROCEDURE: CT LUMBAR SPINE WO CONTRAST Indication frequent falls. Weakness. Axial images through the lumbar spine were obtained and reformatted in the coronal and sagittal planes. In those portions of the abdomen and pelvis which are seen left renal calculi are noted. There is a 3 cm mass associated with the right kidney compatible with a cyst. Vertebral height is well maintained. There is vacuum disc phenomenon at L2-3. Osteophytes are seen anteriorly and posteriorly at multiple levels. There is mild anterior spondylolisthesis of L4 relative to L5. An acute bony finding is not seen. Facet degenerative changes are noted most pronounced at L4-5 and L5-S1. A right laminectomy defect is noted at L5. There is no evidence of spinal stenosis or significant foraminal encroachment and the visualized lower thoracic spine. There is partial calcification of the disc and are osteophyte formation at L1-2. There is slight canal narrowing at this level. There is disc bulging at L2-3 with some associated ligamentum flavum hypertrophy with again mild canal narrowing at this level. At L3-4 there is slight left foraminal encroachment. There is again disc bulging and some ligamentum flavum hypertrophy with associated mild canal narrowing. There is slight canal narrowing at L4-5. L5-S1 appears unremarkable. IMPRESSION: No acute finding in the lumbar spine. Spondylitic changes in the lumbar spine as outlined above. Mild canal narrowing noted at multiple levels PQRS Compliance Statement: One or more of the following individualized dose reduction techniques were utilized for this examination: 1. Automated exposure control 2. Adjustment of the mA and/or kV according to patient size 3. Use of iterative reconstruction technique DICTATED and SIGNED BY: PAWAN CHANDRA MD DATE: 01/07/17 1149 CC: HU MARQUES MD; ERIC WHITING MD ~ Patient had x-rays three-view bilateral knees done today at approximately 11:57 AM 01/07/2017 demonstrating no cold fractures within the joints themselves there is marked degenerative joint changes and arthritis. But there is no obvious patella zara or fracture within the patella. There is minimal soft tissue swelling noted. X-rays are read by Dr. Marques. Course & Med Decision Making Course & Med Decision Making Pertinent Labs and Imaging studies reviewed. (See chart for details) [] Dragon Disclaimer Dragon Disclaimer This electronic medical record was generated, in whole or in part, using a voice recognition dictation system. Departure Departure Referrals: ERIC WHITING MD (PCP) HU MARQUES MD Jan 07, 2017 12:18
[2017-01-07 12:21] LABS: BACTERIA,URINE 0 /HPF (0-FEW); SQUAMOUS EPITHELIAL CELL,UR FEW /LPF
--- NOTE | 2017-01-07 12:34 | RAD ---
Indication pain and swelling associated with a fall. 2 AP views, incorporating both knees, were obtained as well as individual lateral views of both knees. There are some mild degenerative changes involving both knees manifested primarily as mild medial joint space compartment narrowing and slight patellofemoral narrowing. An acute finding involving either knee is not seen. Orthopedic plate is noted associated with the left femur. IMPRESSION: Mild degenerative changes involving the knees. No acute finding seen
--- NOTE | 2017-01-07 12:36 | RAD ---
Indication fall. Protocol study. A single view of the chest was obtained and is compared to an examination 08/17/2016. Heart size is unchanged. Pulmonary vasculature is normal. There is unchanged mild elevation of the right hemidiaphragm. There is no acute parenchymal infiltrate. Significant pleural fluid is not present. No pneumothorax is seen. There is a healed left rib fracture. Left shoulder prosthesis and degenerative changes about the right shoulder are noted. IMPRESSION: No acute or focal process is seen in the chest
[2017-01-07] MEDS ORDERED: fentaNYL PF VIAL 100 MCG/2 ML VIAL IV ONE (13:00)
[2017-01-07] MEDS ORDERED: ONDANSETRON PF 4 MG/2 ML VIAL. IV PRN ×2 (13:00→17:15)
[2017-01-07] MEDS ORDERED: fentaNYL PF VIAL 100 MCG/2 ML VIAL IV PRN (13:00)
[2017-01-07] MEDS: IV NORMAL SALINE 1000ML BAG 1,000 ML IV SCH (13:16)
--- NOTE | 2017-01-07 16:47 | EKG ---
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
[2017-01-07] MEDS ORDERED: hydrALAZINE 20 MG/ML VIAL. IVP PRN (17:15)
[2017-01-07] MEDS ORDERED: DOCUSATE SODIUM 100 MG CAPSULE. PO PRN (17:15)
[2017-01-07] MEDS ORDERED: ACETAMINOPHEN 325 MG TABLET. PO PRN (17:15)
[2017-01-07] MEDS ORDERED: MORPHINE SULFATE 2 MG/ML DISP.SYRIN. IV PRN (17:15)
--- NOTE | 2017-01-07 17:15 | PDOC1 ---
History and Physical Date of Admission Date of Admission 01/07/17 Identification/Chief Complaint Chief Complaint near syncope Problems: Source Source: Chart review, Patient History of Present Illness History of Present Illness HPI This is a pleasant 66-year-old female with history of recent hip replacement on the left with subsequent femur fracture and surgical repair was had an issue with increasing weakness and pain in her hip and falls to the ground from standing position. PT BASically had multiple left hip and lower ext sx in the past half year, cont having bl leg weakness especially left leg , fu with dr. Dao office, last time was 1 month ago, no further intervention. Also had chronic mild lower back pain, fu with pain management for injection. She was taking a shower last night, could not move left leg, and fell forwarded , didnot hit head nor passed out, but then has bl knee pain, right shoulder worsening chronic pain . She could not get up and feels weak too, near syncope. denies fever, chills, cough, sob, chest pain, was found high CE in ER. Past Medical History Past Medical History : Depression, High Cholesterol, Hypertension, Kidney Stone, Other Additional Past Medical Histor: obesity, celiac, sleep apnea,vision problems Past Surgical History Past Surgical History Past Surgical History: Cholecystectomy, Hip Replacement Additional Past Surgical Histo: pericardial window,left shoulder replacement, hernia repair,left ovary tumo Family History Family History: Hypertension Social History Smoke: No ALCOHOL: none Drugs: None Current Medications Current Medications Current Medications Medications (Trade) Dose Ordered Sig/Priscila Start Time Stop Time Status Last Admin Dose Admin Fentanyl Citrate (Fentanyl 2ml Vial) 50 mcg PRN Q2HR PRN 01/07/17 13:00 01/08/17 12:59 Lorazepam (Ativan) 1 mg 1X ONCE 01/07/17 11:15 01/07/17 11:16 DC 01/07/17 11:07 1 MG Ondansetron HCl (Zofran) 4 mg PRN Q8HRS PRN 01/07/17 13:00 01/08/17 12:59 Sodium Chloride 1,000 ml @ 90 mls/hr [id number] 01/07/17 13:30 01/08/17 13:29 01/07/17 13:16 90 MLS/HR Sodium Chloride (Normal Saline Flush) 10 ml QSHIFT PRN 01/07/17 11:00 Allergies Allergies Allergies Coded Allergies Type Severity Reaction Last Updated Verified Penicillins Allergy Intermediate Rash 07/05/16 Yes Sulfa (Sulfonamide Antibiotics) Adverse Reaction Intermediate Nausea 07/05/16 Yes ROS Review of System CONSTITUTIONAL: No fever or chills EYES: No recent changes SKIN: No rash or itching CARDIOVASCULAR: No chest pain, syncope, palpitations, or edema RESPIRATORY: No SOB or cough GASTROINTESTINAL: No nausea, vomiting or abdominal pain NEUROLOGICAL: No headaches or weakness ENDOCRINE: No cold or heat intolerance GENITOURINARY: No urgency or frequency of urination MUSCULOSKELETAL: No back pain or joint pain LYMPHATICS: No enlarged lymph nodes PSYCHIATRIC: No anxiety or depression Physical Exam Physical Exam GEN.: No apparent distress. Alert and oriented. HEENT: Head is normocephalic, atraumatic NECK: Supple. LUNGS: Clear to auscultation. HEART: RRR, S1, S2 present. Peripheral pulses intact ABDOMEN: Soft, nontender. Positive bowel sounds. EXTREMITIES: Without any cyanosis. bl leg weakness, not focal, 4/5. NEUROLOGIC: Normal speech, normal tone PSYCHIATRIC: Normal affect, normal mood. SKIN: No ulcerations Vitals Vitals Vital Signs Date Time Temp Pulse Resp B/P (MAP) Pulse Ox O2 Delivery O2 Flow Rate FiO2 01/07/17 15:49 80 131/60 (83) 98 Nasal Cannula 2.0 01/07/17 10:50 98.0 22 98.0 Labs Labs Laboratory Tests Test 01/07/17 11:05 01/07/17 11:45 White Blood Count 11.7 x10^3/uL (4.0-11.0) Red Blood Count 5.31 x10^6/uL (3.50-5.40) Hemoglobin 12.2 g/dL (12.0-15.5) Hematocrit 39.6 % (36.0-47.0) Mean Corpuscular Volume 75 fL (79-100) Mean Corpuscular Hemoglobin 23 pg (25-35) Mean Corpuscular Hemoglobin Concent 31 g/dL (31-37) Red Cell Distribution Width 19.7 % (11.5-14.5) Platelet Count 365 x10^3/uL (140-400) Neutrophils (%) (Auto) 64 % (31-73) Lymphocytes (%) (Auto) 25 % (24-48) Monocytes (%) (Auto) 8 % (0-9) Eosinophils (%) (Auto) 2 % (0-3) Basophils (%) (Auto) 1 % (0-3) Neutrophils # (Auto) 7.5 x10^3uL (1.8-7.7) Lymphocytes # (Auto) 2.9 x10^3/uL (1.0-4.8) Monocytes # (Auto) 1.0 x10^3/uL (0.0-1.1) Eosinophils # (Auto) 0.2 x10^3/uL (0.0-0.7) Basophils # (Auto) 0.1 x10^3/uL (0.0-0.2) Sodium Level 145 mmol/L (136-145) Potassium Level 3.8 mmol/L (3.5-5.1) Chloride Level 106 mmol/L (98-107) Carbon Dioxide Level 32 mmol/L (21-32) Anion Gap 7 (6-14) Blood Urea Nitrogen 21 mg/dL (7-20) Creatinine 0.7 mg/dL (0.6-1.0) Estimated GFR (Cockcroft-Gault) 83.5 Glucose Level 89 mg/dL (70-99) Calcium Level 10.3 mg/dL (8.5-10.1) Magnesium Level 2.0 mg/dL (1.8-2.4) Total Bilirubin 0.4 mg/dL (0.2-1.0) Direct Bilirubin 0.1 mg/dL (0.0-0.2) Aspartate Amino Transf (AST/SGOT) 36 U/L (15-37) Alanine Aminotransferase (ALT/SGPT) 36 U/L (14-59) Alkaline Phosphatase 84 U/L (46-116) Creatine Kinase 593 U/L (26-192) Creatine Kinase MB (Mass) 14.1 ng/mL (0.0-3.6) Creatine Kinase MB Relative Index 2.4 % (0-4) Troponin I Quantitative 0.078 ng/mL (0.000-0.055) BT-Bbh-E-Type Natriuretic Peptide 249 pg/mL (0-124) Total Protein 7.1 g/dL (6.4-8.2) Albumin 3.6 g/dL (3.4-5.0) Thyroid Stimulating Hormone (TSH) 1.806 uIU/mL (0.358-3.74) Urine Collection Type Unknown Urine Color Yellow Urine Clarity Clear Urine pH 6.0 Urine Specific [place] 1.020 Urine Protein Negative mg/dL (NEG-TRACE) Urine Glucose (UA) Negative mg/dL (NEG) Urine Ketones (Stick) Negative mg/dL (NEG) Urine Blood Negative (NEG) Urine Nitrite Negative (NEG) Urine Bilirubin Negative (NEG) Urine Urobilinogen Dipstick 0.2 mg/dL (0.2 mg/dL) Urine Leukocyte Esterase Negative (NEG) Urine RBC 1-2 /HPF (0-2) Urine WBC 1-4 /HPF (0-4) Urine Squamous Epithelial Cells Few /LPF Urine Bacteria 0 /HPF (0-FEW) Urine Hyaline Casts Few /HPF Urine Mucus Marked /LPF Laboratory Tests Test 01/07/17 11:05 01/07/17 11:45 White Blood Count 11.7 x10^3/uL (4.0-11.0) Red Blood Count 5.31 x10^6/uL (3.50-5.40) Hemoglobin 12.2 g/dL (12.0-15.5) Hematocrit 39.6 % (36.0-47.0) Mean Corpuscular Volume 75 fL (79-100) Mean Corpuscular Hemoglobin 23 pg (25-35) Mean Corpuscular Hemoglobin Concent 31 g/dL (31-37) Red Cell Distribution Width 19.7 % (11.5-14.5) Platelet Count 365 x10^3/uL (140-400) Neutrophils (%) (Auto) 64 % (31-73) Lymphocytes (%) (Auto) 25 % (24-48) Monocytes (%) (Auto) 8 % (0-9) Eosinophils (%) (Auto) 2 % (0-3) Basophils (%) (Auto) 1 % (0-3) Neutrophils # (Auto) 7.5 x10^3uL (1.8-7.7) Lymphocytes # (Auto) 2.9 x10^3/uL (1.0-4.8) Monocytes # (Auto) 1.0 x10^3/uL (0.0-1.1) Eosinophils # (Auto) 0.2 x10^3/uL (0.0-0.7) Basophils # (Auto) 0.1 x10^3/uL (0.0-0.2) Sodium Level 145 mmol/L (136-145) Potassium Level 3.8 mmol/L (3.5-5.1) Chloride Level 106 mmol/L (98-107) Carbon Dioxide Level 32 mmol/L (21-32) Anion Gap 7 (6-14) Blood Urea Nitrogen 21 mg/dL (7-20) Creatinine 0.7 mg/dL (0.6-1.0) Estimated GFR (Cockcroft-Gault) 83.5 Glucose Level 89 mg/dL (70-99) Calcium Level 10.3 mg/dL (8.5-10.1) Magnesium Level 2.0 mg/dL (1.8-2.4) Total Bilirubin 0.4 mg/dL (0.2-1.0) Direct Bilirubin 0.1 mg/dL (0.0-0.2) Aspartate Amino Transf (AST/SGOT) 36 U/L (15-37) Alanine Aminotransferase (ALT/SGPT) 36 U/L (14-59) Alkaline Phosphatase 84 U/L (46-116) Creatine Kinase 593 U/L (26-192) Creatine Kinase MB (Mass) 14.1 ng/mL (0.0-3.6) Creatine Kinase MB Relative Index 2.4 % (0-4) Troponin I Quantitative 0.078 ng/mL (0.000-0.055) EK-Ewn-A-Type Natriuretic Peptide 249 pg/mL (0-124) Total Protein 7.1 g/dL (6.4-8.2) Albumin 3.6 g/dL (3.4-5.0) Thyroid Stimulating Hormone (TSH) 1.806 uIU/mL (0.358-3.74) Urine Collection Type Unknown Urine Color Yellow Urine Clarity Clear Urine pH 6.0 Urine Specific [place] 1.020 Urine Protein Negative mg/dL (NEG-TRACE) Urine Glucose (UA) Negative mg/dL (NEG) Urine Ketones (Stick) Negative mg/dL (NEG) Urine Blood Negative (NEG) Urine Nitrite Negative (NEG) Urine Bilirubin Negative (NEG) Urine Urobilinogen Dipstick 0.2 mg/dL (0.2 mg/dL) Urine Leukocyte Esterase Negative (NEG) Urine RBC 1-2 /HPF (0-2) Urine WBC 1-4 /HPF (0-4) Urine Squamous Epithelial Cells Few /LPF Urine Bacteria 0 /HPF (0-FEW) Urine Hyaline Casts Few /HPF Urine Mucus Marked /LPF VTE Prophylaxis Ordered VTE Prophylaxis Devices: Yes VTE Pharmacological Prophylaxi: Yes Assessment/Plan Assessment/Plan mechanical fall with chronic left leg weakness multiple left hip and leg ortho sx with bl leg weakness chronic back pain with injection near syncope high CE wo chest pain, 2/2 muscular problem? hld htn depression obesity h/o pericardial window chronic right shoulder pain pending sx ZENON on CPAP plan: dr. Shaq vigil, ortho consult cycle ce echo cont home meds lovex 100mg sq x1 ptot lumbar CT neg ivf x1 Liter GIRISH BURT MD Jan 07, 2017 17:15
[2017-01-07 17:35] VITALS: BP 121/71
[2017-01-07 17:40] VITALS: BP 135/66
[2017-01-07 17:45] VITALS: BP 134/63
[2017-01-07 17:50] VITALS: BP 148/64
[2017-01-07 19:40] VITALS: BP 131/60
[2017-01-07] MEDS: GABAPENTIN 300 MG CAPSULE. PO SCH (21:15)
[2017-01-07] MEDS: ATORVASTATIN CALCIUM 10 MG TABLET. PO SCH (21:15)
[2017-01-07] MEDS: HYDROcodone/APAP 7.5/325MG 1 TAB TABLET PO PRN (21:15)
[2017-01-07] MEDS: ALPRAZolam 0.5 MG TABLET PO PRN (21:25)
[2017-01-07 23:35] VITALS: BP 130/61
[2017-01-08] MEDS: IV NORMAL SALINE 1000ML BAG 1,000 ML IV SCH ×2 (00:37→11:44)
[2017-01-08 03:40] VITALS: BP 138/65
[2017-01-08 06:38] LABS: BASO # 0.1 x10^3/uL (0.0-0.2); BASO % 1 % (0-3); EOS % 4 % (0-3); HEMATOCRIT 36.1 % (36.0-47.0); HEMOGLOBIN 11.1 g/dL (12.0-15.5); LYMPH # 2.7 x10^3/uL (1.0-4.8); LYMPH % 37 % (24-48); MEAN CORPUSCULAR HEMOGLOBIN 23 pg (25-35); MEAN CORPUSCULAR HGB CONC 31 g/dL (31-37); MEAN CORPUSCULAR VOLUME 75 fL (79-100); MONO % 10 % (0-9); NEUT % 47 % (31-73); PLATELET COUNT 326 x10^3/uL (140-400); RED BLOOD COUNT 4.84 x10^6/uL (3.50-5.40); RED CELL DISTRIBUTION WIDTH 19.5 % (11.5-14.5); WHITE BLOOD COUNT 7.3 x10^3/uL (4.0-11.0)
[2017-01-08 06:59] LABS: CALCIUM 8.7 mg/dL (8.5-10.1); CREATININE 0.6 mg/dL (0.6-1.0); GFR 99.7; POTASSIUM 3.4 mmol/L (3.5-5.1)
[2017-01-08 07:00] VITALS: BP 136/68
[2017-01-08 07:09] LABS: CHOLESTEROL/HDL RATIO 3.5
--- NOTE | 2017-01-08 08:03 | PDOC2 ---
CONSULT Date of Consult Date of Consult DATE: 01/08/17 TIME: 07:57 Reason for Consult Reason for Consult: Weakness Referring Physician Referring Physician: Rashad Identification/Chief Complaint Chief Complaint Generalized weakness, pain in bilateral quads Problems: Source Source: Patient History of Present Illness Reason for Visit: June was admitted due to 2 recent falls lately, she tells me her legs just work that well. She denies any back pain. She denies any pain rating all the way down her legs into her feet. Her main source of pain is her bilateral quadriceps, worse with any hip flexion. She denies any preceding symptoms prior to her falls. 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 Her index surgery was in January 2016. She tells me that she felt like she is progressing with rehabilitation, and that she did some exercises on her own after that as well, but lately she is is been week. She also feels like she is has generalized weakness in bilateral upper extremities as well. Past Medical History Cardiovascular: CAD, Other Pulmonary: Asthma CENTRAL NERVOUS SYSTEM: Periperal neuropathy Musculoskeletal: low back pain, Osteoarthritis Endocrine: Diabetes Past Surgical History Past Surgical History: Appendectomy, Hysterectomy, Other (pericardial window, shoulder replacements, left hip surgeries as per history of present illness) Family History Family History: Hypertension Social History No ALCOHOL: none Drugs: None Current Medications Current Medications Current Medications Lorazepam (Ativan) 1 mg 1X ONCE IV Last administered on 01/07/17 11:07; Start 01/07/17 at 11:15; Stop 01/07/17 at 11:16; Status DC Sodium Chloride 1,000 ml @ 1,000 mls/hr Q1H IV Last administered on 01/07/17 11:07; Start 01/07/17 at 11:15; Stop 01/07/17 at 12:14; Status DC Sodium Chloride (Normal Saline Flush) 10 ml QSHIFT PRN IV AFTER MEDS AND BLOOD DRAWS; Start 01/07/17 at 11:00 Fentanyl Citrate (Fentanyl 2ml Vial) 50 mcg 1X ONCE IV Last administered on 13:15; Start 01/07/17 at 13:00; Stop 01/07/17 at 13:01; Status DC Ondansetron HCl (Zofran) 4 mg PRN Q8HRS PRN IV NAUSEA/VOMITING; Start 01/07/17 at 13:00; Stop 01/08/17 at 12:59 Fentanyl Citrate (Fentanyl 2ml Vial) 50 mcg PRN Q2HR PRN IV PAIN; Start at 13:00; Stop 01/08/17 at 12:59 Sodium Chloride 1,000 ml @ 90 mls/hr Q11H7M IV Last administered on 01/07/17 13:16; Start 01/07/17 at 13:30; Stop 01/08/17 at 13:29 Alprazolam (Xanax) 0.5 mg PRN QHS PRN PO ANXIETY Last administered on 01/07/17 21:25; Start 01/07/17 at 17:15 Amlodipine Besylate (Norvasc) 10 mg DAILY PO ; Start 01/08/17 at 09:00 Atorvastatin Calcium (Lipitor) 10 mg QHS PO Last administered on 01/07/17 21:15 ; Start 01/07/17 at 21:00 Acetaminophen/ Hydrocodone Bitart (Lortab 7.5/325) 1 tab PRN Q6HRS PRN PO PAIN Last administered on 01/07/17 21:15; Start 01/07/17 at 17:15 Oxybutynin Chloride (Ditropan) 10 mg DAILY PO ; Start 01/08/17 at 09:00 Bupropion HCl (Wellbutrin Xl) 300 mg DAILY PO ; Start 01/08/17 at 09:00 Vitamin D (Vitamin D3) 1,000 unit DAILY PO ; Start 01/08/17 at 09:00 Duloxetine HCl (Cymbalta) 60 mg DAILY PO ; Start 01/08/17 at 09:00 Gabapentin (Neurontin) 300 mg BID PO Last administered on 01/07/17 21:15; Start 01/07/17 at 21:00 Losartan Potassium (Cozaar) 100 mg DAILY PO ; Start 01/08/17 at 09:00 Enoxaparin Sodium (Lovenox 100mg Syringe) 100 mg 1X ONCE SQ Last administered on 01/07/17 18:19; Start 01/07/17 at 17:15; Stop 01/07/17 at 17:18; Status DC Acetaminophen (Tylenol) 650 mg PRN Q6HRS PRN PO FEVER; Start 01/07/17 at 17:15 Ondansetron HCl (Zofran) 4 mg PRN Q6HRS PRN IV NAUSEA/VOMITING; Start 01/07/17 at 17:15 Morphine Sulfate 2 mg PRN Q2HR PRN IV PAIN; Start 01/07/17 at 17:15 Tramadol HCl (Ultram) 50 mg PRN Q6HRS PRN PO PAIN; Start 01/07/17 at 17:15 Hydralazine HCl (Apresoline) 10 mg PRN Q4HRS PRN IVP ELEVATED BP, SEE COMMENTS ; Start 01/07/17 at 17:15 Docusate Sodium (Colace) 100 mg PRN DAILY PRN PO CONSTIPATION; Start 01/07/17 at 17:15 Active Scripts Active Zosyn 3.375 Gram Vial (Piperacillin Sodium/Tazobactam) 3.375 Gm Vial 3.375 Gm IV Q6HRS 42 Days [Warfarin Sodium] 1 EACH Each 1 Each MC PRN DAILY PRN 30 Days Amlodipine Besylate 10 Mg Tablet 10 Mg PO DAILY Reported Cubicin (Daptomycin) 500 Mg Vial 625 Mg IV DAILY Cymbalta (Duloxetine Hcl) 60 Mg Capsule.dr 2 Cap PO DAILY Gabapentin 300 Mg Capsule 300 Mg PO TID Hydrocodone-Apap 7.5-325 (Hydrocodone Bit/Acetaminophen) 1 Each Tablet 1 Tab PO PRN Q6HRS PRN Xanax (Alprazolam) 0.5 Mg Tablet 0.5 Mg PO HS PRN Vitamin D-3 (Cholecalciferol (Vitamin D3)) 2,000 Unit Tablet 1,000 Unit PO DAILY06 Oxybutynin Chloride 5 Mg Tablet 10 Mg PO DAILY06 Atorvastatin Calcium 10 Mg Tablet 10 Mg PO DAILY Losartan Potassium 100 Mg Tablet 100 Mg PO DAILY Bupropion Xl (Bupropion Hcl) 300 Mg Tab.er.24h 300 Mg PO DAILY Allergies Allergies: Coded Allergies: Penicillins (Verified Allergy, Intermediate, Rash, 07/05/16) Sulfa (Sulfonamide Antibiotics) (Verified Adverse Reaction, Intermediate, Nausea, 07/05/16) ROS General: YES: Fatigue PSYCHOLOGICAL ROS: No: Anxiety, Behavioral Disorder, Concentration difficultie , Decreased libido, Depression, Disorientation, Hallucinations, Hostility, Irritablity, Memory difficulties, Mood Swings, Obsessive thoughts, Physical abuse, Sexual abuse, Sleep disturbances, Suicidal ideation, Other Eyes: No Blurry vision, No Decreased vision, No Double vision, No Dry eyes, No Excessive tearing, No Eye Pain, No Itchy Eyes, No Loss of vision, No Photophobia , No Scotomata, No Uses contacts, No Uses glasses, No Other HEENT: No: Heacaches, Visual Changes, Hearing change, Nasal congestion, Nasal discharge, Oral lesions, Sinus pain, Sore Throat, Epistaxis, Sneezing, Snoring, Tinnitus, Vertigo, Vocal changes, Other ALLERGY AND IMMUNOLOGY: No: Hives, Insect Bite Sensitivity, Itchy/Watery Eyes, Nasal Congestion, Post Nasal Drip, Seasonal Allergies, Other Hematological and Lymphatic: No: Bleeding Problems, Blood Clots, Blood Transfusions, Brusing, Night Sweats, Pallor, Swollen Lymph Nodes, Other ENDOCRINE: No: Breast Changes, Galactorrhea, Hair Pattern Changes, Hot Flashes , Malaise/lethargy, Mood Swings, Palpitations, Polydipsia/polyuria, Skin Changes , Temperature Intolerance, Unexpected Weight Changes, Other Respiratory: No: Cough, Hemoptysis, Orthopnea, Pleuritic Pain, Shortness of breath, SOB with excertion, Sputum Changes, Stridor, Tachypnea, Wheezing, Other Cardiovascular: No Chest Pain, No Palpitations, No Orthopnea, No Paroxysmal Noc. Dyspnea, No Edema, No Lt Headedness, No Other Gastrointestinal: No Nausea, No Vomiting, No Abdominal Pain, No Diarrhea, No Constipation, No Melena, No Hematochezia, No Other Genitourinary: No Dysuria, No Frequency, No Incontinence, No Hematuria, No Retention, No Discharge, No Urgency, No Pain, No Flank Pain, No Other, No , No , No , No , No , No , No Musculoskeletal: Yes Gait Disturbance, Yes Joint Pain, Yes Joint Stiffness, Yes Muscle Pain, Yes Muscular Weakness Neurological: No Behavorial Changes, No Bowel/Bladder ControlChng, No Confusion , No Dizziness, No Gait Disturbance, No Headaches, No Impaired Coord/balance, No Memory Loss, No Numbness/Tingling, No Seizures, No Speech Problems, No Tremors, No Visual Changes, No Weakness, No Other Skin: No Dry Skin, No Eczema, No Hair Changes, No Lumps, No Mole Changes, No Mottling, No Nail Changes, No Pruritus, No Rash, No Skin Lesion Changes, No Other, No Acne Physical Exam General: Alert, Oriented X3 HEENT: Atraumatic, PERRLA Lungs: Other (respirations are unlabored with symmetric chest rise) Heart: Regular rate Abdomen: Normal bowel sounds, Soft Extremities: No edema, Normal pulses Skin: No rashes Neuro: Normal speech, Strength at 5/5 X4 ext Psych/Mental Status: Mental status NL, Mood NL MUSCULOSKELETAL: Other (examination of bilateral lower extremities reveals mild tenderness to palpation quadriceps muscles. Well-healed posterolateral skin incision over her left hip. EHL and FHL are 55 bilaterally. Decreased sensation in her feet. No pain with gentle logrolling her hip. She has pain with resisted hip flexion, feels this at her anterior thigh.) Vitals VITALS Vital Signs Date Time Temp Pulse Resp B/P (MAP) Pulse Ox O2 Delivery O2 Flow Rate FiO2 01/08/17 03:40 98.3 78 18 138/65 (89) 96 Room Air 98.3 01/07/17 22:15 2.0 Labs Labs Laboratory Tests Test 01/07/17 11:05 01/07/17 11:45 01/07/17 17:30 01/08/17 06:00 White Blood Count 11.7 x10^3/uL (4.0-11.0) 7.3 x10^3/uL (4.0-11.0) Red Blood Count 5.31 x10^6/uL (3.50-5.40) 4.84 x10^6/uL (3.50-5.40) Hemoglobin 12.2 g/dL (12.0-15.5) 11.1 g/dL (12.0-15.5) Hematocrit 39.6 % (36.0-47.0) 36.1 % (36.0-47.0) Mean Corpuscular Volume 75 fL (79-100) 75 fL (79-100) Mean Corpuscular Hemoglobin 23 pg (25-35) 23 pg (25-35) Mean Corpuscular Hemoglobin Concent 31 g/dL (31-37) 31 g/dL (31-37) Red Cell Distribution Width 19.7 % (11.5-14.5) 19.5 % (11.5-14.5) Platelet Count 365 x10^3/uL (140-400) 326 x10^3/uL (140-400) Neutrophils (%) (Auto) 64 % (31-73) 47 % (31-73) Lymphocytes (%) (Auto) 25 % (24-48) 37 % (24-48) Monocytes (%) (Auto) 8 % (0-9) 10 % (0-9) Eosinophils (%) (Auto) 2 % (0-3) 4 % (0-3) Basophils (%) (Auto) 1 % (0-3) 1 % (0-3) Neutrophils # (Auto) 7.5 x10^3uL (1.8-7.7) 3.4 x10^3uL (1.8-7.7) Lymphocytes # (Auto) 2.9 x10^3/uL (1.0-4.8) 2.7 x10^3/uL (1.0-4.8) Monocytes # (Auto) 1.0 x10^3/uL (0.0-1.1) 0.8 x10^3/uL (0.0-1.1) Eosinophils # (Auto) 0.2 x10^3/uL (0.0-0.7) 0.3 x10^3/uL (0.0-0.7) Basophils # (Auto) 0.1 x10^3/uL (0.0-0.2) 0.1 x10^3/uL (0.0-0.2) Sodium Level 145 mmol/L (136-145) 142 mmol/L (136-145) Potassium Level 3.8 mmol/L (3.5-5.1) 3.4 mmol/L (3.5-5.1) Chloride Level 106 mmol/L (98-107) 107 mmol/L (98-107) Carbon Dioxide Level 32 mmol/L (21-32) 31 mmol/L (21-32) Anion Gap 7 (6-14) 4 (6-14) Blood Urea Nitrogen 21 mg/dL (7-20) 16 mg/dL (7-20) Creatinine 0.7 mg/dL (0.6-1.0) 0.6 mg/dL (0.6-1.0) Estimated GFR (Cockcroft-Gault) 83.5 99.7 Glucose Level 89 mg/dL (70-99) 89 mg/dL (70-99) Calcium Level 10.3 mg/dL (8.5-10.1) 8.7 mg/dL (8.5-10.1) Magnesium Level 2.0 mg/dL (1.8-2.4) Total Bilirubin 0.4 mg/dL (0.2-1.0) Direct Bilirubin 0.1 mg/dL (0.0-0.2) Aspartate Amino Transf (AST/SGOT) 36 U/L (15-37) Alanine Aminotransferase (ALT/SGPT) 36 U/L (14-59) Alkaline Phosphatase 84 U/L (46-116) Creatine Kinase 593 U/L (26-192) Creatine Kinase MB (Mass) 14.1 ng/mL (0.0-3.6) Creatine Kinase MB Relative Index 2.4 % (0-4) Troponin I Quantitative 0.078 ng/mL (0.000-0.055) 0.033 ng/mL (0.000-0.055) 0.032 ng/mL (0.000-0.055) XQ-Dcv-A-Type Natriuretic Peptide 249 pg/mL (0-124) Total Protein 7.1 g/dL (6.4-8.2) Albumin 3.6 g/dL (3.4-5.0) Thyroid Stimulating Hormone (TSH) 1.806 uIU/mL (0.358-3.74) Urine Collection Type Unknown Urine Color Yellow Urine Clarity Clear Urine pH 6.0 Urine Specific [place] 1.020 Urine Protein Negative mg/dL (NEG-TRACE) Urine Glucose (UA) Negative mg/dL (NEG) Urine Ketones (Stick) Negative mg/dL (NEG) Urine Blood Negative (NEG) Urine Nitrite Negative (NEG) Urine Bilirubin Negative (NEG) Urine Urobilinogen Dipstick 0.2 mg/dL (0.2 mg/dL) Urine Leukocyte Esterase Negative (NEG) Urine RBC 1-2 /HPF (0-2) Urine WBC 1-4 /HPF (0-4) Urine Squamous Epithelial Cells Few /LPF Urine Bacteria 0 /HPF (0-FEW) Urine Hyaline Casts Few /HPF Urine Mucus Marked /LPF Triglycerides Level 109 mg/dL (0-150) Cholesterol Level 146 mg/dL (0-200) LDL Cholesterol, Calculated 82 mg/dL (0-100) VLDL Cholesterol, Calculated 22 mg/dL (0-40) Non-HDL Cholesterol Calculated 104 mg/dL (0-129) HDL Cholesterol 42 mg/dL (40-60) Cholesterol/HDL Ratio 3.5 Laboratory Tests Test 01/07/17 11:05 01/07/17 11:45 01/07/17 17:30 01/08/17 06:00 White Blood Count 11.7 x10^3/uL (4.0-11.0) 7.3 x10^3/uL (4.0-11.0) Red Blood Count 5.31 x10^6/uL (3.50-5.40) 4.84 x10^6/uL (3.50-5.40) Hemoglobin 12.2 g/dL (12.0-15.5) 11.1 g/dL (12.0-15.5) Hematocrit 39.6 % (36.0-47.0) 36.1 % (36.0-47.0) Mean Corpuscular Volume 75 fL (79-100) 75 fL (79-100) Mean Corpuscular Hemoglobin 23 pg (25-35) 23 pg (25-35) Mean Corpuscular Hemoglobin Concent 31 g/dL (31-37) 31 g/dL (31-37) Red Cell Distribution Width 19.7 % (11.5-14.5) 19.5 % (11.5-14.5) Platelet Count 365 x10^3/uL (140-400) 326 x10^3/uL (140-400) Neutrophils (%) (Auto) 64 % (31-73) 47 % (31-73) Lymphocytes (%) (Auto) 25 % (24-48) 37 % (24-48) Monocytes (%) (Auto) 8 % (0-9) 10 % (0-9) Eosinophils (%) (Auto) 2 % (0-3) 4 % (0-3) Basophils (%) (Auto) 1 % (0-3) 1 % (0-3) Neutrophils # (Auto) 7.5 x10^3uL (1.8-7.7) 3.4 x10^3uL (1.8-7.7) Lymphocytes # (Auto) 2.9 x10^3/uL (1.0-4.8) 2.7 x10^3/uL (1.0-4.8) Monocytes # (Auto) 1.0 x10^3/uL (0.0-1.1) 0.8 x10^3/uL (0.0-1.1) Eosinophils # (Auto) 0.2 x10^3/uL (0.0-0.7) 0.3 x10^3/uL (0.0-0.7) Basophils # (Auto) 0.1 x10^3/uL (0.0-0.2) 0.1 x10^3/uL (0.0-0.2) Sodium Level 145 mmol/L (136-145) 142 mmol/L (136-145) Potassium Level 3.8 mmol/L (3.5-5.1) 3.4 mmol/L (3.5-5.1) Chloride Level 106 mmol/L (98-107) 107 mmol/L (98-107) Carbon Dioxide Level 32 mmol/L (21-32) 31 mmol/L (21-32) Anion Gap 7 (6-14) 4 (6-14) Blood Urea Nitrogen 21 mg/dL (7-20) 16 mg/dL (7-20) Creatinine 0.7 mg/dL (0.6-1.0) 0.6 mg/dL (0.6-1.0) Estimated GFR (Cockcroft-Gault) 83.5 99.7 Glucose Level 89 mg/dL (70-99) 89 mg/dL (70-99) Calcium Level 10.3 mg/dL (8.5-10.1) 8.7 mg/dL (8.5-10.1) Magnesium Level 2.0 mg/dL (1.8-2.4) Total Bilirubin 0.4 mg/dL (0.2-1.0) Direct Bilirubin 0.1 mg/dL (0.0-0.2) Aspartate Amino Transf (AST/SGOT) 36 U/L (15-37) Alanine Aminotransferase (ALT/SGPT) 36 U/L (14-59) Alkaline Phosphatase 84 U/L (46-116) Creatine Kinase 593 U/L (26-192) Creatine Kinase MB (Mass) 14.1 ng/mL (0.0-3.6) Creatine Kinase MB Relative Index 2.4 % (0-4) Troponin I Quantitative 0.078 ng/mL (0.000-0.055) 0.033 ng/mL (0.000-0.055) 0.032 ng/mL (0.000-0.055) KD-Mkl-V-Type Natriuretic Peptide 249 pg/mL (0-124) Total Protein 7.1 g/dL (6.4-8.2) Albumin 3.6 g/dL (3.4-5.0) Thyroid Stimulating Hormone (TSH) 1.806 uIU/mL (0.358-3.74) Urine Collection Type Unknown Urine Color Yellow Urine Clarity Clear Urine pH 6.0 Urine Specific [place] 1.020 Urine Protein Negative mg/dL (NEG-TRACE) Urine Glucose (UA) Negative mg/dL (NEG) Urine Ketones (Stick) Negative mg/dL (NEG) Urine Blood Negative (NEG) Urine Nitrite Negative (NEG) Urine Bilirubin Negative (NEG) Urine Urobilinogen Dipstick 0.2 mg/dL (0.2 mg/dL) Urine Leukocyte Esterase Negative (NEG) Urine RBC 1-2 /HPF (0-2) Urine WBC 1-4 /HPF (0-4) Urine Squamous Epithelial Cells Few /LPF Urine Bacteria 0 /HPF (0-FEW) Urine Hyaline Casts Few /HPF Urine Mucus Marked /LPF Triglycerides Level 109 mg/dL (0-150) Cholesterol Level 146 mg/dL (0-200) LDL Cholesterol, Calculated 82 mg/dL (0-100) VLDL Cholesterol, Calculated 22 mg/dL (0-40) Non-HDL Cholesterol Calculated 104 mg/dL (0-129) HDL Cholesterol 42 mg/dL (40-60) Cholesterol/HDL Ratio 3.5 Images Images Hip and pelvis x-rays from yesterday were compared to hip and pelvis x-rays from August of this year. These were interpreted by myself. Reports were also reviewed. constrained total hip arthroplasty with sideplate and cables in place , unchanged in position Assessment/Plan Assessment/Plan I did discuss with her that she has been through a lot of surgery and with her generalized complaints in the appearance of everything on x-ray as well as her exam do not think any further surgery would benefit her. I think should be a good candidate for more rehabilitation to help her regain her strength. HUGH GO II, MD Jan 08, 2017 08:03
[2017-01-08] MEDS: DULoxetine HCL 30 MG CAPSULE.DR PO SCH (08:54)
[2017-01-08] MEDS: GABAPENTIN 300 MG CAPSULE. PO SCH ×2 (08:54→20:49)
[2017-01-08] MEDS: buPROPion XL 150 MG TAB.ER.24H. PO SCH (08:54)
[2017-01-08] MEDS: traMADol 50 MG TABLET PO PRN ×2 (08:55→15:41)
[2017-01-08] MEDS: CHOLECALCIFEROL (VITAMIN D3) 1,000 UNIT TABLET PO SCH (08:55)
[2017-01-08] MEDS: amLODIPine BESYLATE 10 MG TABLET PO SCH (08:55)
[2017-01-08] MEDS: LOSARTAN POTASSIUM 50 MG TABLET. PO SCH (08:56)
[2017-01-08] MEDS: OXYBUTYNIN CHLORIDE 5 MG TABLET PO SCH (09:00)
[2017-01-08 11:00] VITALS: BP 130/70
[2017-01-08] MEDS ORDERED: POTASSIUM CHLORIDE 20 MEQ TABLET.ER. PO ONE (11:00)
--- NOTE | 2017-01-08 11:12 | PDOC ---
PROGRESS NOTES Chief Complaint Chief Complaint mechanical fall with chronic left leg weakness multiple left hip and leg ortho sx with bl leg weakness chronic back pain with injection near syncope high CE wo chest pain, 2/2 muscular problem? hld htn depression obesity h/o pericardial window w/ chronic pericarditis, has been on Doxy 100 BID, chronic right shoulder pain pending sx ZENON on CPAP History of Present Illness History of Present Illness ortho rec. no surg, need rehab card, dr. New, ortho consult cardiac enzymes neg cv diet, cont tele echo cont home meds lovex 100mg sq x1 ptot lumbar CT neg Vitals Vitals Vital Signs Date Time Temp Pulse Resp B/P (MAP) Pulse Ox O2 Delivery O2 Flow Rate FiO2 01/08/17 09:55 96 Room Air 01/08/17 08:56 67 138/67 01/08/17 07:58 2.0 01/08/17 07:00 97.6 20 97.6 Physical Exam General: Alert, Oriented X3, No acute distress Heart: Regular rate Lungs: Clear, Other Abdomen: Normal bowel sounds, Soft Extremities: No edema, Normal pulses Skin: No rashes Labs LABS Laboratory Tests Test 01/07/17 11:45 01/07/17 17:30 01/08/17 06:00 Urine Collection Type Unknown Urine Color Yellow Urine Clarity Clear Urine pH 6.0 Urine Specific [place] 1.020 Urine Protein Negative mg/dL (NEG-TRACE) Urine Glucose (UA) Negative mg/dL (NEG) Urine Ketones (Stick) Negative mg/dL (NEG) Urine Blood Negative (NEG) Urine Nitrite Negative (NEG) Urine Bilirubin Negative (NEG) Urine Urobilinogen Dipstick 0.2 mg/dL (0.2 mg/dL) Urine Leukocyte Esterase Negative (NEG) Urine RBC 1-2 /HPF (0-2) Urine WBC 1-4 /HPF (0-4) Urine Squamous Epithelial Cells Few /LPF Urine Bacteria 0 /HPF (0-FEW) Urine Hyaline Casts Few /HPF Urine Mucus Marked /LPF Troponin I Quantitative 0.033 ng/mL (0.000-0.055) 0.032 ng/mL (0.000-0.055) White Blood Count 7.3 x10^3/uL (4.0-11.0) Red Blood Count 4.84 x10^6/uL (3.50-5.40) Hemoglobin 11.1 g/dL (12.0-15.5) Hematocrit 36.1 % (36.0-47.0) Mean Corpuscular Volume 75 fL (79-100) Mean Corpuscular Hemoglobin 23 pg (25-35) Mean Corpuscular Hemoglobin Concent 31 g/dL (31-37) Red Cell Distribution Width 19.5 % (11.5-14.5) Platelet Count 326 x10^3/uL (140-400) Neutrophils (%) (Auto) 47 % (31-73) Lymphocytes (%) (Auto) 37 % (24-48) Monocytes (%) (Auto) 10 % (0-9) Eosinophils (%) (Auto) 4 % (0-3) Basophils (%) (Auto) 1 % (0-3) Neutrophils # (Auto) 3.4 x10^3uL (1.8-7.7) Lymphocytes # (Auto) 2.7 x10^3/uL (1.0-4.8) Monocytes # (Auto) 0.8 x10^3/uL (0.0-1.1) Eosinophils # (Auto) 0.3 x10^3/uL (0.0-0.7) Basophils # (Auto) 0.1 x10^3/uL (0.0-0.2) Sodium Level 142 mmol/L (136-145) Potassium Level 3.4 mmol/L (3.5-5.1) Chloride Level 107 mmol/L (98-107) Carbon Dioxide Level 31 mmol/L (21-32) Anion Gap 4 (6-14) Blood Urea Nitrogen 16 mg/dL (7-20) Creatinine 0.6 mg/dL (0.6-1.0) Estimated GFR (Cockcroft-Gault) 99.7 Glucose Level 89 mg/dL (70-99) Calcium Level 8.7 mg/dL (8.5-10.1) Triglycerides Level 109 mg/dL (0-150) Cholesterol Level 146 mg/dL (0-200) LDL Cholesterol, Calculated 82 mg/dL (0-100) VLDL Cholesterol, Calculated 22 mg/dL (0-40) Non-HDL Cholesterol Calculated 104 mg/dL (0-129) HDL Cholesterol 42 mg/dL (40-60) Cholesterol/HDL Ratio 3.5 Review of Systems Review of Systems less dyspena, feels well no event Comment Review of Relevant I have reviewed the following items antonio (where applicable) has been applied. Labs Laboratory Tests Test 01/07/17 11:05 01/07/17 11:45 01/07/17 17:30 01/08/17 06:00 White Blood Count 11.7 x10^3/uL (4.0-11.0) 7.3 x10^3/uL (4.0-11.0) Red Blood Count 5.31 x10^6/uL (3.50-5.40) 4.84 x10^6/uL (3.50-5.40) Hemoglobin 12.2 g/dL (12.0-15.5) 11.1 g/dL (12.0-15.5) Hematocrit 39.6 % (36.0-47.0) 36.1 % (36.0-47.0) Mean Corpuscular Volume 75 fL (79-100) 75 fL (79-100) Mean Corpuscular Hemoglobin 23 pg (25-35) 23 pg (25-35) Mean Corpuscular Hemoglobin Concent 31 g/dL (31-37) 31 g/dL (31-37) Red Cell Distribution Width 19.7 % (11.5-14.5) 19.5 % (11.5-14.5) Platelet Count 365 x10^3/uL (140-400) 326 x10^3/uL (140-400) Neutrophils (%) (Auto) 64 % (31-73) 47 % (31-73) Lymphocytes (%) (Auto) 25 % (24-48) 37 % (24-48) Monocytes (%) (Auto) 8 % (0-9) 10 % (0-9) Eosinophils (%) (Auto) 2 % (0-3) 4 % (0-3) Basophils (%) (Auto) 1 % (0-3) 1 % (0-3) Neutrophils # (Auto) 7.5 x10^3uL (1.8-7.7) 3.4 x10^3uL (1.8-7.7) Lymphocytes # (Auto) 2.9 x10^3/uL (1.0-4.8) 2.7 x10^3/uL (1.0-4.8) Monocytes # (Auto) 1.0 x10^3/uL (0.0-1.1) 0.8 x10^3/uL (0.0-1.1) Eosinophils # (Auto) 0.2 x10^3/uL (0.0-0.7) 0.3 x10^3/uL (0.0-0.7) Basophils # (Auto) 0.1 x10^3/uL (0.0-0.2) 0.1 x10^3/uL (0.0-0.2) Sodium Level 145 mmol/L (136-145) 142 mmol/L (136-145) Potassium Level 3.8 mmol/L (3.5-5.1) 3.4 mmol/L (3.5-5.1) Chloride Level 106 mmol/L (98-107) 107 mmol/L (98-107) Carbon Dioxide Level 32 mmol/L (21-32) 31 mmol/L (21-32) Anion Gap 7 (6-14) 4 (6-14) Blood Urea Nitrogen 21 mg/dL (7-20) 16 mg/dL (7-20) Creatinine 0.7 mg/dL (0.6-1.0) 0.6 mg/dL (0.6-1.0) Estimated GFR (Cockcroft-Gault) 83.5 99.7 Glucose Level 89 mg/dL (70-99) 89 mg/dL (70-99) Calcium Level 10.3 mg/dL (8.5-10.1) 8.7 mg/dL (8.5-10.1) Magnesium Level 2.0 mg/dL (1.8-2.4) Total Bilirubin 0.4 mg/dL (0.2-1.0) Direct Bilirubin 0.1 mg/dL (0.0-0.2) Aspartate Amino Transf (AST/SGOT) 36 U/L (15-37) Alanine Aminotransferase (ALT/SGPT) 36 U/L (14-59) Alkaline Phosphatase 84 U/L (46-116) Creatine Kinase 593 U/L (26-192) Creatine Kinase MB (Mass) 14.1 ng/mL (0.0-3.6) Creatine Kinase MB Relative Index 2.4 % (0-4) Troponin I Quantitative 0.078 ng/mL (0.000-0.055) 0.033 ng/mL (0.000-0.055) 0.032 ng/mL (0.000-0.055) XL-Ivc-A-Type Natriuretic Peptide 249 pg/mL (0-124) Total Protein 7.1 g/dL (6.4-8.2) Albumin 3.6 g/dL (3.4-5.0) Thyroid Stimulating Hormone (TSH) 1.806 uIU/mL (0.358-3.74) Urine Collection Type Unknown Urine Color Yellow Urine Clarity Clear Urine pH 6.0 Urine Specific [place] 1.020 Urine Protein Negative mg/dL (NEG-TRACE) Urine Glucose (UA) Negative mg/dL (NEG) Urine Ketones (Stick) Negative mg/dL (NEG) Urine Blood Negative (NEG) Urine Nitrite Negative (NEG) Urine Bilirubin Negative (NEG) Urine Urobilinogen Dipstick 0.2 mg/dL (0.2 mg/dL) Urine Leukocyte Esterase Negative (NEG) Urine RBC 1-2 /HPF (0-2) Urine WBC 1-4 /HPF (0-4) Urine Squamous Epithelial Cells Few /LPF Urine Bacteria 0 /HPF (0-FEW) Urine Hyaline Casts Few /HPF Urine Mucus Marked /LPF Triglycerides Level 109 mg/dL (0-150) Cholesterol Level 146 mg/dL (0-200) LDL Cholesterol, Calculated 82 mg/dL (0-100) VLDL Cholesterol, Calculated 22 mg/dL (0-40) Non-HDL Cholesterol Calculated 104 mg/dL (0-129) HDL Cholesterol 42 mg/dL (40-60) Cholesterol/HDL Ratio 3.5 Laboratory Tests Test 01/07/17 11:45 01/07/17 17:30 01/08/17 06:00 Urine Collection Type Unknown Urine Color Yellow Urine Clarity Clear Urine pH 6.0 Urine Specific [place] 1.020 Urine Protein Negative mg/dL (NEG-TRACE) Urine Glucose (UA) Negative mg/dL (NEG) Urine Ketones (Stick) Negative mg/dL (NEG) Urine Blood Negative (NEG) Urine Nitrite Negative (NEG) Urine Bilirubin Negative (NEG) Urine Urobilinogen Dipstick 0.2 mg/dL (0.2 mg/dL) Urine Leukocyte Esterase Negative (NEG) Urine RBC 1-2 /HPF (0-2) Urine WBC 1-4 /HPF (0-4) Urine Squamous Epithelial Cells Few /LPF Urine Bacteria 0 /HPF (0-FEW) Urine Hyaline Casts Few /HPF Urine Mucus Marked /LPF Troponin I Quantitative 0.033 ng/mL (0.000-0.055) 0.032 ng/mL (0.000-0.055) White Blood Count 7.3 x10^3/uL (4.0-11.0) Red Blood Count 4.84 x10^6/uL (3.50-5.40) Hemoglobin 11.1 g/dL (12.0-15.5) Hematocrit 36.1 % (36.0-47.0) Mean Corpuscular Volume 75 fL (79-100) Mean Corpuscular Hemoglobin 23 pg (25-35) Mean Corpuscular Hemoglobin Concent 31 g/dL (31-37) Red Cell Distribution Width 19.5 % (11.5-14.5) Platelet Count 326 x10^3/uL (140-400) Neutrophils (%) (Auto) 47 % (31-73) Lymphocytes (%) (Auto) 37 % (24-48) Monocytes (%) (Auto) 10 % (0-9) Eosinophils (%) (Auto) 4 % (0-3) Basophils (%) (Auto) 1 % (0-3) Neutrophils # (Auto) 3.4 x10^3uL (1.8-7.7) Lymphocytes # (Auto) 2.7 x10^3/uL (1.0-4.8) Monocytes # (Auto) 0.8 x10^3/uL (0.0-1.1) Eosinophils # (Auto) 0.3 x10^3/uL (0.0-0.7) Basophils # (Auto) 0.1 x10^3/uL (0.0-0.2) Sodium Level 142 mmol/L (136-145) Potassium Level 3.4 mmol/L (3.5-5.1) Chloride Level 107 mmol/L (98-107) Carbon Dioxide Level 31 mmol/L (21-32) Anion Gap 4 (6-14) Blood Urea Nitrogen 16 mg/dL (7-20) Creatinine 0.6 mg/dL (0.6-1.0) Estimated GFR (Cockcroft-Gault) 99.7 Glucose Level 89 mg/dL (70-99) Calcium Level 8.7 mg/dL (8.5-10.1) Triglycerides Level 109 mg/dL (0-150) Cholesterol Level 146 mg/dL (0-200) LDL Cholesterol, Calculated 82 mg/dL (0-100) VLDL Cholesterol, Calculated 22 mg/dL (0-40) Non-HDL Cholesterol Calculated 104 mg/dL (0-129) HDL Cholesterol 42 mg/dL (40-60) Cholesterol/HDL Ratio 3.5 Medications Current Medications Lorazepam (Ativan) 1 mg 1X ONCE IV Last administered on 01/07/17 11:07; Start 01/07/17 at 11:15; Stop 01/07/17 at 11:16; Status DC Sodium Chloride 1,000 ml @ 1,000 mls/hr Q1H IV Last administered on 01/07/17 11:07; Start 01/07/17 at 11:15; Stop 01/07/17 at 12:14; Status DC Sodium Chloride (Normal Saline Flush) 10 ml QSHIFT PRN IV AFTER MEDS AND BLOOD DRAWS; Start 01/07/17 at 11:00 Fentanyl Citrate (Fentanyl 2ml Vial) 50 mcg 1X ONCE IV Last administered on 13:15; Start 01/07/17 at 13:00; Stop 01/07/17 at 13:01; Status DC Ondansetron HCl (Zofran) 4 mg PRN Q8HRS PRN IV NAUSEA/VOMITING; Start 01/07/17 at 13:00; Stop 01/08/17 at 12:59 Fentanyl Citrate (Fentanyl 2ml Vial) 50 mcg PRN Q2HR PRN IV PAIN; Start at 13:00; Stop 01/08/17 at 12:59 Sodium Chloride 1,000 ml @ 90 mls/hr Q11H7M IV Last administered on 01/07/17 13:16; Start 01/07/17 at 13:30; Stop 01/08/17 at 13:29 Alprazolam (Xanax) 0.5 mg PRN QHS PRN PO ANXIETY Last administered on 01/07/17 21:25; Start 01/07/17 at 17:15 Amlodipine Besylate (Norvasc) 10 mg DAILY PO Last administered on 01/08/17 08: 55; Start 01/08/17 at 09:00 Atorvastatin Calcium (Lipitor) 10 mg QHS PO Last administered on 01/07/17 21:15 ; Start 01/07/17 at 21:00 Acetaminophen/ Hydrocodone Bitart (Lortab 7.5/325) 1 tab PRN Q6HRS PRN PO PAIN Last administered on 01/07/17 21:15; Start 01/07/17 at 17:15 Oxybutynin Chloride (Ditropan) 10 mg DAILY PO ; Start 01/08/17 at 09:00 Bupropion HCl (Wellbutrin Xl) 300 mg DAILY PO Last administered on 01/08/17 08: 54; Start 01/08/17 at 09:00 Vitamin D (Vitamin D3) 1,000 unit DAILY PO Last administered on 01/08/17 08:55 ; Start 01/08/17 at 09:00 Duloxetine HCl (Cymbalta) 60 mg DAILY PO Last administered on 01/08/17 08:54; Start 01/08/17 at 09:00 Gabapentin (Neurontin) 300 mg BID PO Last administered on 01/08/17 08:54; Start 01/07/17 at 21:00 Losartan Potassium (Cozaar) 100 mg DAILY PO Last administered on 01/08/17 08:56 ; Start 01/08/17 at 09:00 Enoxaparin Sodium (Lovenox 100mg Syringe) 100 mg 1X ONCE SQ Last administered on 01/07/17 18:19; Start 01/07/17 at 17:15; Stop 01/07/17 at 17:18; Status DC Acetaminophen (Tylenol) 650 mg PRN Q6HRS PRN PO FEVER; Start 01/07/17 at 17:15 Ondansetron HCl (Zofran) 4 mg PRN Q6HRS PRN IV NAUSEA/VOMITING; Start 01/07/17 at 17:15 Morphine Sulfate 2 mg PRN Q2HR PRN IV PAIN; Start 01/07/17 at 17:15 Tramadol HCl (Ultram) 50 mg PRN Q6HRS PRN PO PAIN Last administered on 8/6/ 17at 08:55; Start 01/07/17 at 17:15 Hydralazine HCl (Apresoline) 10 mg PRN Q4HRS PRN IVP ELEVATED BP, SEE COMMENTS ; Start 01/07/17 at 17:15 Docusate Sodium (Colace) 100 mg PRN DAILY PRN PO CONSTIPATION; Start 01/07/17 at 17:15 Potassium Chloride (Klor-Con) 40 meq 1X ONCE PO ; Start 01/08/17 at 11:00; Stop 01/08/17 at 11:01; Status DC Active Scripts Active Zosyn 3.375 Gram Vial (Piperacillin Sodium/Tazobactam) 3.375 Gm Vial 3.375 Gm IV Q6HRS 42 Days [Warfarin Sodium] 1 EACH Each 1 Each MC PRN DAILY PRN 30 Days Amlodipine Besylate 10 Mg Tablet 10 Mg PO DAILY Reported Cubicin (Daptomycin) 500 Mg Vial 625 Mg IV DAILY Cymbalta (Duloxetine Hcl) 60 Mg Capsule.dr 2 Cap PO DAILY Gabapentin 300 Mg Capsule 300 Mg PO TID Hydrocodone-Apap 7.5-325 (Hydrocodone Bit/Acetaminophen) 1 Each Tablet 1 Tab PO PRN Q6HRS PRN Xanax (Alprazolam) 0.5 Mg Tablet 0.5 Mg PO HS PRN Vitamin D-3 (Cholecalciferol (Vitamin D3)) 2,000 Unit Tablet 1,000 Unit PO DAILY06 Oxybutynin Chloride 5 Mg Tablet 10 Mg PO DAILY06 Atorvastatin Calcium 10 Mg Tablet 10 Mg PO DAILY Losartan Potassium 100 Mg Tablet 100 Mg PO DAILY Bupropion Xl (Bupropion Hcl) 300 Mg Tab.er.24h 300 Mg PO DAILY Vitals/I & O Vital Sign - Last 24 Hours 01/07/17 01/07/17 01/07/17 01/07/17 11:33 12:33 13:49 14:19 Pulse 80 82 86 88 B/P (MAP) 156/70 (98) 136/67 (90) 148/67 (94) 143/65 (91) Pulse Ox 96 91 97 96 O2 Delivery Room Air Nasal Cannula Nasal Cannula Nasal Cannula O2 Flow Rate 2.0 2.0 2.0 01/07/17 01/07/17 01/07/17 01/07/17 14:49 15:19 15:49 17:35 Temp 98.5 98.5 Pulse 92 88 80 81 Resp 16 B/P (MAP) 134/67 (89) 127/75 (92) 131/60 (83) 121/71 (88) Pulse Ox 96 100 98 93 O2 Delivery Nasal Cannula Nasal Cannula Nasal Cannula Nasal Cannula O2 Flow Rate 2.0 2.0 2.0 2.0 01/07/17 01/07/17 01/07/17 01/07/17 17:40 17:45 17:50 18:47 B/P (MAP) 135/66 (89) 134/63 (86) 148/64 (92) O2 Delivery Nasal Cannula O2 Flow Rate 2.0 01/07/17 01/07/17 01/07/17 01/07/17 19:40 19:40 21:15 22:15 Temp 97.7 97.7 Pulse 80 Resp 20 22 20 B/P (MAP) 131/60 (83) Pulse Ox 96 96 96 O2 Delivery Nasal Cannula Nasal Cannula Nasal Cannula Nasal Cannula O2 Flow Rate 2.0 2.0 2.0 2.0 01/07/17 01/08/17 01/08/17 01/08/17 23:35 03:40 07:00 07:58 Temp 97.9 98.3 97.6 97.9 98.3 97.6 Pulse 83 78 67 Resp 18 18 20 B/P (MAP) 130/61 (84) 138/65 (89) 136/68 (90) Pulse Ox 94 96 90 O2 Delivery BiPAP/CPAP Room Air Room Air Nasal Cannula O2 Flow Rate 2.0 01/08/17 01/08/17 01/08/17 01/08/17 08:55 08:55 08:56 09:55 Pulse 67 67 B/P (MAP) 138/67 138/67 Pulse Ox 96 96 O2 Delivery Room Air Room Air Intake and Output 01/07/17 01/07/17 01/08/17 15:00 23:00 07:00 Intake Total 1000 ml 200 ml Output Total 500 ml Balance 1000 ml -300 ml FABIÁN BAÑUELOS MD Jan 08, 2017 11:12
[2017-01-08] MEDS ORDERED: DOXYCYCLINE HYCLATE 100 MG TABLET PO ONE (11:15)
--- NOTE | 2017-01-08 13:08 | RAD ---
Indication fall. Pain. An AP view of the pelvis was obtained as well as a lateral view of the left hip. 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 An acute bony finding is not apparent. Mesh material is noted in the right pelvis.
[2017-01-08 15:00] VITALS: BP 126/65
--- NOTE | 2017-01-08 15:44 | PDOC2 ---
CONSULT Date of Consult Date of Consult DATE: 01/08/17 TIME: 15:38 Reason for Consult Reason for Consult: near syncope Referring Physician Referring Physician: Dr. Solorzano Identification/Chief Complaint Chief Complaint Weakness, fall Problems: Source Source: Patient History of Present Illness Reason for Visit: The patient is a 66-year-old female who was admitted through the emergency room for increasing weakness and fatigue including episodes of falls. She had a recent left hip replacement and this is being evaluated. She states that she has had no chest pain or increasing shortness of breath. Initial workup shows a CT head scan with no acute findings in the chest x-ray with no acute findings. EKG shows a sinus rhythm with frequent PVCs. From a cardiac viewpoint the patient reports a history of hypertension and possible hyperlipidemia. She also is status post a pericardial window placed more than 15 years ago. This morning she is resting comfortably in bed. Past Medical History Cardiovascular: CAD, Other (pericardial window) Pulmonary: Asthma CENTRAL NERVOUS SYSTEM: Periperal neuropathy Musculoskeletal: low back pain, Osteoarthritis Endocrine: Diabetes Past Surgical History Past Surgical History: Appendectomy, Arthroscopy, Total hip replacement, Hysterectomy, Other (pericardial window, shoulder replacement) Family History Family History: Hypertension Social History No ALCOHOL: none Drugs: None Current Medications Current Medications Current Medications Lorazepam (Ativan) 1 mg 1X ONCE IV Last administered on 01/07/17 11:07; Start 01/07/17 at 11:15; Stop 01/07/17 at 11:16; Status DC Sodium Chloride 1,000 ml @ 1,000 mls/hr Q1H IV Last administered on 01/07/17 11:07; Start 01/07/17 at 11:15; Stop 01/07/17 at 12:14; Status DC Sodium Chloride (Normal Saline Flush) 10 ml QSHIFT PRN IV AFTER MEDS AND BLOOD DRAWS; Start 01/07/17 at 11:00 Fentanyl Citrate (Fentanyl 2ml Vial) 50 mcg 1X ONCE IV Last administered on 13:15; Start 01/07/17 at 13:00; Stop 01/07/17 at 13:01; Status DC Ondansetron HCl (Zofran) 4 mg PRN Q8HRS PRN IV NAUSEA/VOMITING; Start 01/07/17 at 13:00; Stop 01/08/17 at 12:59; Status DC Fentanyl Citrate (Fentanyl 2ml Vial) 50 mcg PRN Q2HR PRN IV PAIN; Start at 13:00; Stop 01/08/17 at 12:59; Status DC Sodium Chloride 1,000 ml @ 90 mls/hr Q11H7M IV Last administered on 01/07/17 13:16; Start 01/07/17 at 13:30; Stop 01/08/17 at 13:29; Status DC Alprazolam (Xanax) 0.5 mg PRN QHS PRN PO ANXIETY Last administered on 01/07/17 21:25; Start 01/07/17 at 17:15 Amlodipine Besylate (Norvasc) 10 mg DAILY PO Last administered on 01/08/17 08: 55; Start 01/08/17 at 09:00 Atorvastatin Calcium (Lipitor) 10 mg QHS PO Last administered on 01/07/17 21:15 ; Start 01/07/17 at 21:00 Acetaminophen/ Hydrocodone Bitart (Lortab 7.5/325) 1 tab PRN Q6HRS PRN PO PAIN Last administered on 01/07/17 21:15; Start 01/07/17 at 17:15 Oxybutynin Chloride (Ditropan) 10 mg DAILY PO ; Start 01/08/17 at 09:00 Bupropion HCl (Wellbutrin Xl) 300 mg DAILY PO Last administered on 01/08/17 08: 54; Start 01/08/17 at 09:00 Vitamin D (Vitamin D3) 1,000 unit DAILY PO Last administered on 01/08/17 08:55 ; Start 01/08/17 at 09:00 Duloxetine HCl (Cymbalta) 60 mg DAILY PO Last administered on 01/08/17 08:54; Start 01/08/17 at 09:00 Gabapentin (Neurontin) 300 mg BID PO Last administered on 01/08/17 08:54; Start 01/07/17 at 21:00 Losartan Potassium (Cozaar) 100 mg DAILY PO Last administered on 01/08/17 08:56 ; Start 01/08/17 at 09:00 Enoxaparin Sodium (Lovenox 100mg Syringe) 100 mg 1X ONCE SQ Last administered on 01/07/17 18:19; Start 01/07/17 at 17:15; Stop 01/07/17 at 17:18; Status DC Acetaminophen (Tylenol) 650 mg PRN Q6HRS PRN PO FEVER; Start 01/07/17 at 17:15 Ondansetron HCl (Zofran) 4 mg PRN Q6HRS PRN IV NAUSEA/VOMITING; Start 01/07/17 at 17:15 Morphine Sulfate 2 mg PRN Q2HR PRN IV PAIN; Start 01/07/17 at 17:15 Tramadol HCl (Ultram) 50 mg PRN Q6HRS PRN PO PAIN Last administered on 08:55; Start 01/07/17 at 17:15 Hydralazine HCl (Apresoline) 10 mg PRN Q4HRS PRN IVP ELEVATED BP, SEE COMMENTS ; Start 01/07/17 at 17:15 Docusate Sodium (Colace) 100 mg PRN DAILY PRN PO CONSTIPATION; Start 01/07/17 at 17:15 Potassium Chloride (Klor-Con) 40 meq 1X ONCE PO Last administered on 01/08/17 12:36; Start 01/08/17 at 11:00; Stop 01/08/17 at 11:01; Status DC Daptomycin (Cubicin) 625 mg DAILY IV ; Start 01/09/17 at 09:00; Stop 01/09/17 at 09:00; Status DC Doxycycline Hyclate (Vibra-Tab) 100 mg BID PO ; Start 01/08/17 at 21:00 Doxycycline Hyclate (Vibra-Tab) 100 mg 1X ONCE PO Last administered on 12:36; Start 01/08/17 at 11:15; Stop 01/08/17 at 11:18; Status DC Active Scripts Active Zosyn 3.375 Gram Vial (Piperacillin Sodium/Tazobactam) 3.375 Gm Vial 3.375 Gm IV Q6HRS 42 Days [Warfarin Sodium] 1 EACH Each 1 Each MC PRN DAILY PRN 30 Days Amlodipine Besylate 10 Mg Tablet 10 Mg PO DAILY Reported Cubicin (Daptomycin) 500 Mg Vial 625 Mg IV DAILY Cymbalta (Duloxetine Hcl) 60 Mg Capsule.dr 2 Cap PO DAILY Gabapentin 300 Mg Capsule 300 Mg PO TID Hydrocodone-Apap 7.5-325 (Hydrocodone Bit/Acetaminophen) 1 Each Tablet 1 Tab PO PRN Q6HRS PRN Xanax (Alprazolam) 0.5 Mg Tablet 0.5 Mg PO HS PRN Vitamin D-3 (Cholecalciferol (Vitamin D3)) 2,000 Unit Tablet 1,000 Unit PO DAILY06 Oxybutynin Chloride 5 Mg Tablet 10 Mg PO DAILY06 Atorvastatin Calcium 10 Mg Tablet 10 Mg PO DAILY Losartan Potassium 100 Mg Tablet 100 Mg PO DAILY Bupropion Xl (Bupropion Hcl) 300 Mg Tab.er.24h 300 Mg PO DAILY Allergies Allergies: Coded Allergies: Penicillins (Verified Allergy, Intermediate, Rash, 07/05/16) Sulfa (Sulfonamide Antibiotics) (Verified Adverse Reaction, Intermediate, Nausea, 07/05/16) ROS General: YES: Fatigue Cardiovascular: yes Lt [place] Physical Exam General: mild distress HEENT: Atraumatic Lungs: Clear to auscultation Heart: Other (regular rate with a 1/6 systolic murmur) Abdomen: Normal bowel sounds Vitals VITALS Vital Signs Date Time Temp Pulse Resp B/P (MAP) Pulse Ox O2 Delivery O2 Flow Rate FiO2 01/08/17 15:00 98.1 70 20 126/65 (85) 96 Nasal Cannula 2.0 98.1 Labs Labs Laboratory Tests Test 01/07/17 11:05 01/07/17 11:45 01/07/17 17:30 01/08/17 06:00 White Blood Count 11.7 x10^3/uL (4.0-11.0) 7.3 x10^3/uL (4.0-11.0) Red Blood Count 5.31 x10^6/uL (3.50-5.40) 4.84 x10^6/uL (3.50-5.40) Hemoglobin 12.2 g/dL (12.0-15.5) 11.1 g/dL (12.0-15.5) Hematocrit 39.6 % (36.0-47.0) 36.1 % (36.0-47.0) Mean Corpuscular Volume 75 fL (79-100) 75 fL (79-100) Mean Corpuscular Hemoglobin 23 pg (25-35) 23 pg (25-35) Mean Corpuscular Hemoglobin Concent 31 g/dL (31-37) 31 g/dL (31-37) Red Cell Distribution Width 19.7 % (11.5-14.5) 19.5 % (11.5-14.5) Platelet Count 365 x10^3/uL (140-400) 326 x10^3/uL (140-400) Neutrophils (%) (Auto) 64 % (31-73) 47 % (31-73) Lymphocytes (%) (Auto) 25 % (24-48) 37 % (24-48) Monocytes (%) (Auto) 8 % (0-9) 10 % (0-9) Eosinophils (%) (Auto) 2 % (0-3) 4 % (0-3) Basophils (%) (Auto) 1 % (0-3) 1 % (0-3) Neutrophils # (Auto) 7.5 x10^3uL (1.8-7.7) 3.4 x10^3uL (1.8-7.7) Lymphocytes # (Auto) 2.9 x10^3/uL (1.0-4.8) 2.7 x10^3/uL (1.0-4.8) Monocytes # (Auto) 1.0 x10^3/uL (0.0-1.1) 0.8 x10^3/uL (0.0-1.1) Eosinophils # (Auto) 0.2 x10^3/uL (0.0-0.7) 0.3 x10^3/uL (0.0-0.7) Basophils # (Auto) 0.1 x10^3/uL (0.0-0.2) 0.1 x10^3/uL (0.0-0.2) Sodium Level 145 mmol/L (136-145) 142 mmol/L (136-145) Potassium Level 3.8 mmol/L (3.5-5.1) 3.4 mmol/L (3.5-5.1) Chloride Level 106 mmol/L (98-107) 107 mmol/L (98-107) Carbon Dioxide Level 32 mmol/L (21-32) 31 mmol/L (21-32) Anion Gap 7 (6-14) 4 (6-14) Blood Urea Nitrogen 21 mg/dL (7-20) 16 mg/dL (7-20) Creatinine 0.7 mg/dL (0.6-1.0) 0.6 mg/dL (0.6-1.0) Estimated GFR (Cockcroft-Gault) 83.5 99.7 Glucose Level 89 mg/dL (70-99) 89 mg/dL (70-99) Calcium Level 10.3 mg/dL (8.5-10.1) 8.7 mg/dL (8.5-10.1) Magnesium Level 2.0 mg/dL (1.8-2.4) Total Bilirubin 0.4 mg/dL (0.2-1.0) Direct Bilirubin 0.1 mg/dL (0.0-0.2) Aspartate Amino Transf (AST/SGOT) 36 U/L (15-37) Alanine Aminotransferase (ALT/SGPT) 36 U/L (14-59) Alkaline Phosphatase 84 U/L (46-116) Creatine Kinase 593 U/L (26-192) Creatine Kinase MB (Mass) 14.1 ng/mL (0.0-3.6) Creatine Kinase MB Relative Index 2.4 % (0-4) Troponin I Quantitative 0.078 ng/mL (0.000-0.055) 0.033 ng/mL (0.000-0.055) 0.032 ng/mL (0.000-0.055) AO-Gzy-N-Type Natriuretic Peptide 249 pg/mL (0-124) Total Protein 7.1 g/dL (6.4-8.2) Albumin 3.6 g/dL (3.4-5.0) Thyroid Stimulating Hormone (TSH) 1.806 uIU/mL (0.358-3.74) Urine Collection Type Unknown Urine Color Yellow Urine Clarity Clear Urine pH 6.0 Urine Specific Hewitt 1.020 Urine Protein Negative mg/dL (NEG-TRACE) Urine Glucose (UA) Negative mg/dL (NEG) Urine Ketones (Stick) Negative mg/dL (NEG) Urine Blood Negative (NEG) Urine Nitrite Negative (NEG) Urine Bilirubin Negative (NEG) Urine Urobilinogen Dipstick 0.2 mg/dL (0.2 mg/dL) Urine Leukocyte Esterase Negative (NEG) Urine RBC 1-2 /HPF (0-2) Urine WBC 1-4 /HPF (0-4) Urine Squamous Epithelial Cells Few /LPF Urine Bacteria 0 /HPF (0-FEW) Urine Hyaline Casts Few /HPF Urine Mucus Marked /LPF Triglycerides Level 109 mg/dL (0-150) Cholesterol Level 146 mg/dL (0-200) LDL Cholesterol, Calculated 82 mg/dL (0-100) VLDL Cholesterol, Calculated 22 mg/dL (0-40) Non-HDL Cholesterol Calculated 104 mg/dL (0-129) HDL Cholesterol 42 mg/dL (40-60) Cholesterol/HDL Ratio 3.5 Laboratory Tests Test 01/07/17 17:30 01/08/17 06:00 Troponin I Quantitative 0.033 ng/mL (0.000-0.055) 0.032 ng/mL (0.000-0.055) White Blood Count 7.3 x10^3/uL (4.0-11.0) Red Blood Count 4.84 x10^6/uL (3.50-5.40) Hemoglobin 11.1 g/dL (12.0-15.5) Hematocrit 36.1 % (36.0-47.0) Mean Corpuscular Volume 75 fL (79-100) Mean Corpuscular Hemoglobin 23 pg (25-35) Mean Corpuscular Hemoglobin Concent 31 g/dL (31-37) Red Cell Distribution Width 19.5 % (11.5-14.5) Platelet Count 326 x10^3/uL (140-400) Neutrophils (%) (Auto) 47 % (31-73) Lymphocytes (%) (Auto) 37 % (24-48) Monocytes (%) (Auto) 10 % (0-9) Eosinophils (%) (Auto) 4 % (0-3) Basophils (%) (Auto) 1 % (0-3) Neutrophils # (Auto) 3.4 x10^3uL (1.8-7.7) Lymphocytes # (Auto) 2.7 x10^3/uL (1.0-4.8) Monocytes # (Auto) 0.8 x10^3/uL (0.0-1.1) Eosinophils # (Auto) 0.3 x10^3/uL (0.0-0.7) Basophils # (Auto) 0.1 x10^3/uL (0.0-0.2) Sodium Level 142 mmol/L (136-145) Potassium Level 3.4 mmol/L (3.5-5.1) Chloride Level 107 mmol/L (98-107) Carbon Dioxide Level 31 mmol/L (21-32) Anion Gap 4 (6-14) Blood Urea Nitrogen 16 mg/dL (7-20) Creatinine 0.6 mg/dL (0.6-1.0) Estimated GFR (Cockcroft-Gault) 99.7 Glucose Level 89 mg/dL (70-99) Calcium Level 8.7 mg/dL (8.5-10.1) Triglycerides Level 109 mg/dL (0-150) Cholesterol Level 146 mg/dL (0-200) LDL Cholesterol, Calculated 82 mg/dL (0-100) VLDL Cholesterol, Calculated 22 mg/dL (0-40) Non-HDL Cholesterol Calculated 104 mg/dL (0-129) HDL Cholesterol 42 mg/dL (40-60) Cholesterol/HDL Ratio 3.[address] scan of the head shows no acute findings. Chest x-ray shows no acute findings. Assessment/Plan Assessment/Plan 1. Near syncope. Patient's rhythm is stable at this time. However original EKG showed frequent PVCs. Troponin is 0.033. At this time will continue on present treatments. We'll monitor her rhythm for more significant arrhythmias that could be etiology of her near syncope. We'll check an echocardiogram in the morning. 2. Distant placement of a pericardial window. We'll check echocardiogram as noted above. 3. Progressive weakness and fatigue. Workup as per the primary service. 4. Hypertension. Blood pressure is under better control. Will continue medications and monitoring. 5. Possible hyperlipidemia. We'll check a lipid panel in the morning. 6. Recent left hip surgery. Orthopedics consulting. Thank you for allowing us to participate in the care of your pleasant patient. ABDELRAHMAN ALCAZAR MD Jan 08, 2017 15:44
--- NOTE | 2017-01-08 16:19 | CARD ---
APPROVED REPORT EXAM: Two-dimensional and M-mode echocardiogram with Doppler and color Doppler. Other Information Quality : AverageHR: 92bpm INDICATION Syncope 2D DIMENSIONS Left Atrium(2D)4.6 (1.6-4.0cm)IVSd0.9 (0.7-1.1cm) Aortic Root(2D)3.1 (2.0-3.7cm)LVDd5.7 (3.9-5.9cm) LVOT Diameter2.4 (1.8-2.4cm)PWd0.9 (0.7-1.1cm) LVDs4.6 (2.5-4.0cm)FS (%) 19.7 % SV63.8 ml M-Mode DIMENSIONS Aortic Cusp Exc1.86 (1.5-2.0cm) Aortic Valve AoV Peak Davion.159.2cm/sAoV VTI35.1cm AO Peak GR.10.1mmHgLVOT VTI 21.53cm AO Mean GR.6mmHgAI P 1/2 [id number] Mitral Valve MV E Xosnegrt77.6cm/sMV E Peak Gr.1mmHg MV DECEL [id number] A Gyiyncpt61.9cm/s MV MHT03epI/A Ratio0.7 MV A [id number] (PHT)3.79cm2 TDI Lateral E' P. V7.47cm/sMedial E' P. V8.57cm/s E/Lateral E'7.6E/Medial E'6.6 Pulmonary Valve PV Peak Ssivwlkv497.3cm/s Tricuspid Valve TR P. Ivscfzrf742dn/sRAP BORRBMFE1bdQi TR Peak Gr.59brMjEGAC99xrDp LEFT VENTRICLE The left ventricle is normal size. There is mild concentric left ventricular hypertrophy. Left ventri orly systolic function is normal. The Ejection Fraction is 55-60%. There is normal LV segmental wall m otion. Transmitral Doppler flow pattern is Grade I-abnormal relaxation pattern. No left ventricle thr ombus noted on this study. There is no ventricular septal defect visualized. There is no left ventric ular aneurysm. There is no mass noted in the left ventricle. RIGHT VENTRICLE The right ventricle is normal size. There is normal right ventricular wall thickness. The right ventr icular systolic function is normal. ATRIA The left atrium is mildly dilated. The right atrium size is normal. The interatrial septum is intact with no evidence for an atrial septal defect or patent foramen ovale as noted on 2-D or Doppler imagi ng. AORTIC VALVE The aortic valve is normal in structure and function. Doppler and Color Flow revealed mild aortic reg urgitation. There is no significant aortic valvular stenosis. There is no aortic valvular vegetation. MITRAL VALVE The mitral valve is normal in structure and function. There is no evidence of mitral valve prolapse. There is no mitral valve stenosis. Doppler and Color Flow revealed mild mitral regurgitation. TRICUSPID VALVE The tricuspid valve is normal in structure and function. Doppler and Color Flow revealed moderate tri cuspid regurgitation. The pulmonary artery systolic pressure is estimated at 50 mmHg. There is no tr icuspid valve prolapse or vegetation. There is no tricuspid valve stenosis. PULMONIC VALVE The pulmonary valve is normal in structure and function. Doppler and Color Flow revealed mild pulmoni c valvular regurgitation. There is no pulmonic valvular stenosis. GREAT VESSELS The aortic root is normal in size. The ascending aorta is normal in size. The pulmonary artery is nor mal. The IVC was not visualized. PERICARDIAL EFFUSION There is no pleural effusion. There is no evidence of significant pericardial effusion. Critical Notification Critical Value: No <Conclusion> The left ventricle is normal size. Left ventricle systolic function is normal. The Ejection Fraction is 55-60%. There is mild concentric left ventricular hypertrophy. There is no significant aortic valvular stenosis. Doppler and Color Flow revealed mild aortic regurgitation. Doppler and Color Flow revealed mild mitral regurgitation. Doppler and Color Flow revealed moderate tricuspid regurgitation. The pulmonary artery systolic pressure is estimated at 50 mmHg.
[2017-01-08 19:00] VITALS: BP 118/65
[2017-01-08] MEDS: DOXYCYCLINE HYCLATE 100 MG TABLET PO SCH (20:48)
[2017-01-08] MEDS: ATORVASTATIN CALCIUM 10 MG TABLET. PO SCH (20:49)
[2017-01-08] MEDS: HYDROcodone/APAP 7.5/325MG 1 TAB TABLET PO PRN (20:49)
[2017-01-08] MEDS: ALPRAZolam 0.5 MG TABLET PO PRN (20:49)
[2017-01-08 23:00] VITALS: BP 132/67
[2017-01-09 03:00] VITALS: BP 117/52
[2017-01-09] MEDS: HYDROcodone/APAP 7.5/325MG 1 TAB TABLET PO PRN ×2 (04:38→16:50)
[2017-01-09 07:00] VITALS: BP 117/56
[2017-01-09] MEDS: traMADol 50 MG TABLET PO PRN ×2 (08:22→21:00)
[2017-01-09] MEDS: DOXYCYCLINE HYCLATE 100 MG TABLET PO SCH ×2 (08:22→20:57)
[2017-01-09] MEDS: OXYBUTYNIN CHLORIDE 5 MG TABLET PO SCH (08:23)
[2017-01-09] MEDS: GABAPENTIN 300 MG CAPSULE. PO SCH ×2 (08:23→20:57)
[2017-01-09] MEDS: DULoxetine HCL 30 MG CAPSULE.DR PO SCH (08:24)
[2017-01-09] MEDS: amLODIPine BESYLATE 10 MG TABLET PO SCH (08:24)
[2017-01-09] MEDS: buPROPion XL 150 MG TAB.ER.24H. PO SCH (08:25)
[2017-01-09] MEDS: LOSARTAN POTASSIUM 50 MG TABLET. PO SCH (08:25)
[2017-01-09] MEDS: CHOLECALCIFEROL (VITAMIN D3) 1,000 UNIT TABLET PO SCH (08:27)
[2017-01-09] MEDS ORDERED: DAPTOmycin 500 MG VIAL IV SCH (09:00)
--- NOTE | 2017-01-09 10:38 | CONS ---
DATE OF CONSULTATION: 01/09/2017 ATTENDING PHYSICIAN: Dr. Solorzano. The patient was seen at the request of Dr. Solorzano for rehab evaluation. HISTORY OF PRESENT ILLNESS: This is a 66-year-old female with left hip replacement, subsequent revision, then fracture left femur, which was repaired. She had gone through inpatient rehab at [facility] and just finished home health for outpatient therapy followup. The patient has been walking using a cane. She was admitted on 01/07/2017, she felt as her left knee gave away while coming out of the shower at home. The patient admits pain in her right knee, more so over right ankle, which she had it before. She tried some brace, it bothers her more with the brace. The patient also with significant weakness of rotator cuff muscles. The patient is status post left shoulder arthroplasty done by Dr. Heath in the past. The patient also having some problems with bladder incontinence supposed to have surgery on her bladder on 18th of this month. The patient also with known depression, hypercholesterolemia, hypertension, kidney stones, sleep apnea, vision problems, celiac disease, obesity, status post cholecystectomy. The patient also had a pericardial window, ovarian tumor, left hernia repair. The patient had a family history of hypertension and her is at present time hospitalized at [facility] with chronic right heel decubitus ulcer, status post right ankle fusion, also fracture left lateral malleolus, blister left ankle, obesity, chronic lower back pain, degenerative joint disease of both knees, diabetes mellitus with peripheral neuropathy and also recent acute renal failure on hemodialysis at present time, the patient had stairs to manage. ALLERGIES: KNOWN ALLERGIC TO PENICILLIN AND SULFA. PHYSICAL EXAMINATION: Today revealed a middle-aged female. She is alert, oriented to time, place, person and circumstance and follows commands appropriately, moves all 4 extremities voluntarily. She had obvious bilateral rotator cuff muscle weakness. No pain on range of motion of both shoulders. She had tenderness to palpation over cervical paraspinal and posterior shoulder girdle muscles and to some extent over sacroiliac joint area bilaterally. Straight leg raising test is negative bilaterally. She had crepitus on range of motion of her knee joint, mild bruising around right knee, no significant pain on range of motion of her knees or hips. She had tenderness to palpation over medial aspect of right ankle and also over the plantar aspect of right foot, minimal swelling of her right ankle. She had 4+/5 grade muscle strength in her lower extremities and distal upper extremity muscle ____. Deep tendon reflexes are 1-2+ and symmetrical. The patient had equal perception of touch and pinprick sensation bilaterally. She is independent with bed mobility and transfers and up walking using a roller walker, limps on her right foot to some extent. She is obese. ASSESSMENT: A middle-aged female with recent fall and sprain in right knee, superimposed on degenerative joint disease of both knees, fall from left knee giving away to rule out meniscus lesion of left knee and the patient with chronic right ankle sprain and tendinitis and also plantar fascitis right foot, bilateral rotator cuff lesions chronic, status post left shoulder surgery with continued weakness, lower back pain, most probably from degenerative disk disease without any clinical evidence of ongoing lumbar radiculopathy. The patient is status post multiple surgeries on her left hip and also left femur without any significant discomfort at left hip at present time. Also, with urinary incontinence, hypertension, hypercholesterolemia, depression, kidney stones, obesity, celiac disease, sleep apnea, visual problems, status post cholecystectomy, pericardial window placement, hernia repair, left ovary surgery for tumor. RECOMMENDATIONS: To obtain MRI scan of her left knee to rule out any internal derangement, also obtain MRI scan of her shoulders to determine the extents of her rotator cuff lesions, to try her with Cam walker boot to her right ankle to help ease her right ankle pain with home health or outpatient followup when medically stable in the next day or so. Dr. Khan, I appreciate asking me to participate in the care of this interesting patient. I will be glad to follow her with you as needed for her rehabilitation. PAUL MCNALLY MD DR: IVETTE/keynana JOB#: [id number] / [id number]
[2017-01-09 10:49] VITALS: BP 146/30
--- NOTE | 2017-01-09 12:18 | PDOC ---
CARDIO Progress Notes Date and Time Date of Service 01/09/2017 Time of Evaluation 1215 Subjective Subjective: No Chest Pain, No shortness of breath, No Palpitations, No Dizziness Vitals Vitals Vital Signs Date Time Temp Pulse Resp B/P (MAP) Pulse Ox O2 Delivery O2 Flow Rate FiO2 01/09/17 10:49 94.5 70 20 146/30 (68) 96 Room Air 94.5 01/08/17 20:00 2.0 Weight Weight [ ] Input and Output Intake and Output Intake and Output 01/09/17 07:00 Intake Total 340 ml Balance 340 ml Intake Oral 340 ml # Voids 2 Physical Exam HEENT: Neck Supple W Full Motion Chest: Symmetric LUNGS: Clear to Auscultation Heart: S1S2, RRR (SR with frequent PVC) Abdomen: Soft N/T Extremities: No Calf Tenderness Neurology: alert, oriented, follow commands Assessment Assessment 1. Presyncope 2. Moderate pulmonary HTN 3. Distant placement of a pericardial window: TTE with noted normal EF and LV systolic function 4 Weakness and fatigue, intermittent SOA; statin intolerance? 5. Rhabdomyolysis/myalgia Peaked troponin at 0.7 6. HTN: controlled 7. HLP 8. Recent left hip surgery. Recommendations 1. Replace K 2. Stop statin 3. With ectopies, SOA, fatigue and risk factors will proceed with MPI tomorrow. 4. Check orthostatic BP /HR OMID HARRIS APRN Jan 09, 2017 12:18
[2017-01-09] MEDS ORDERED: POTASSIUM CHLORIDE 20 MEQ TABLET.ER. PO ONE (13:00)
[2017-01-09 14:39] VITALS: BP 144/60
--- NOTE | 2017-01-09 17:40 | PDOC ---
PROGRESS NOTES Chief Complaint Chief Complaint Mechanical fall with chronic left leg weakness ASSESSMENT AND PLAN: 1. L leg weakness: s/p multiple left hip and knee surgeries. 2. Chronic back pain: hx injections with good results 3. chronic (R) shoulder pain: s/p L shoulder replacement; not eager for rpt surgery 4. Minimally elevated trop.s: ruled out for ACS. stable levels. cardiology following. MPI in AM 5. ZENON: on CPAP 6. HTN: well controlled on home regimen 7. HLD: on statin 8. Morbid obesity (BMI 39): nutrition consult 9. 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 Depression: stable mood; cont home meds 11. Dispo: declines rehab as recommended by ortho open to home health History of Present Illness History of Present Illness leg painful at times, remains weak. reports occas cramps Vitals Vitals Vital Signs Date Time Temp Pulse Resp B/P (MAP) Pulse Ox O2 Delivery O2 Flow Rate FiO2 01/09/17 16:50 16 Room Air 01/09/17 14:39 97.5 75 144/60 (88) 95 97.5 01/08/17 20:00 2.0 Physical Exam General: Alert, Oriented X3, Cooperative, No acute distress Heart: Regular rate Lungs: Clear Abdomen: Normal bowel sounds Extremities: No edema Skin: No rashes Comment Review of Relevant I have reviewed the following items antonio (where applicable) has been applied. Labs Laboratory Tests Test 01/07/17 17:30 01/08/17 06:00 Troponin I Quantitative 0.033 ng/mL (0.000-0.055) 0.032 ng/mL (0.000-0.055) White Blood Count 7.3 x10^3/uL (4.0-11.0) Red Blood Count 4.84 x10^6/uL (3.50-5.40) Hemoglobin 11.1 g/dL (12.0-15.5) Hematocrit 36.1 % (36.0-47.0) Mean Corpuscular Volume 75 fL (79-100) Mean Corpuscular Hemoglobin 23 pg (25-35) Mean Corpuscular Hemoglobin Concent 31 g/dL (31-37) Red Cell Distribution Width 19.5 % (11.5-14.5) Platelet Count 326 x10^3/uL (140-400) Neutrophils (%) (Auto) 47 % (31-73) Lymphocytes (%) (Auto) 37 % (24-48) Monocytes (%) (Auto) 10 % (0-9) Eosinophils (%) (Auto) 4 % (0-3) Basophils (%) (Auto) 1 % (0-3) Neutrophils # (Auto) 3.4 x10^3uL (1.8-7.7) Lymphocytes # (Auto) 2.7 x10^3/uL (1.0-4.8) Monocytes # (Auto) 0.8 x10^3/uL (0.0-1.1) Eosinophils # (Auto) 0.3 x10^3/uL (0.0-0.7) Basophils # (Auto) 0.1 x10^3/uL (0.0-0.2) Sodium Level 142 mmol/L (136-145) Potassium Level 3.4 mmol/L (3.5-5.1) Chloride Level 107 mmol/L (98-107) Carbon Dioxide Level 31 mmol/L (21-32) Anion Gap 4 (6-14) Blood Urea Nitrogen 16 mg/dL (7-20) Creatinine 0.6 mg/dL (0.6-1.0) Estimated GFR (Cockcroft-Gault) 99.7 Glucose Level 89 mg/dL (70-99) Calcium Level 8.7 mg/dL (8.5-10.1) Triglycerides Level 109 mg/dL (0-150) Cholesterol Level 146 mg/dL (0-200) LDL Cholesterol, Calculated 82 mg/dL (0-100) VLDL Cholesterol, Calculated 22 mg/dL (0-40) Non-HDL Cholesterol Calculated 104 mg/dL (0-129) HDL Cholesterol 42 mg/dL (40-60) Cholesterol/HDL Ratio 3.5 Medications Current Medications Lorazepam (Ativan) 1 mg 1X ONCE IV Last administered on 01/07/17 11:07; Start 01/07/17 at 11:15; Stop 01/07/17 at 11:16; Status DC Sodium Chloride 1,000 ml @ 1,000 mls/hr Q1H IV Last administered on 01/07/17 11:07; Start 01/07/17 at 11:15; Stop 01/07/17 at 12:14; Status DC Sodium Chloride (Normal Saline Flush) 10 ml QSHIFT PRN IV AFTER MEDS AND BLOOD DRAWS; Start 01/07/17 at 11:00 Fentanyl Citrate (Fentanyl 2ml Vial) 50 mcg 1X ONCE IV Last administered on 13:15; Start 01/07/17 at 13:00; Stop 01/07/17 at 13:01; Status DC Ondansetron HCl (Zofran) 4 mg PRN Q8HRS PRN IV NAUSEA/VOMITING; Start 01/07/17 at 13:00; Stop 01/08/17 at 12:59; Status DC Fentanyl Citrate (Fentanyl 2ml Vial) 50 mcg PRN Q2HR PRN IV PAIN; Start at 13:00; Stop 01/08/17 at 12:59; Status DC Sodium Chloride 1,000 ml @ 90 mls/hr Q11H7M IV Last administered on 01/07/17 13:16; Start 01/07/17 at 13:30; Stop 01/08/17 at 13:29; Status DC Alprazolam (Xanax) 0.5 mg PRN QHS PRN PO ANXIETY Last administered on 01/08/17 20:49; Start 01/07/17 at 17:15 Amlodipine Besylate (Norvasc) 10 mg DAILY PO Last administered on 01/09/17 08: 24; Start 01/08/17 at 09:00 Atorvastatin Calcium (Lipitor) 10 mg QHS PO Last administered on 01/08/17 20:49 ; Start 01/07/17 at 21:00; Stop 01/09/17 at 12:37; Status DC Acetaminophen/ Hydrocodone Bitart (Lortab 7.5/325) 1 tab PRN Q6HRS PRN PO PAIN Last administered on 01/09/17 16:50; Start 01/07/17 at 17:15 Oxybutynin Chloride (Ditropan) 10 mg DAILY PO ; Start 01/08/17 at 09:00 Bupropion HCl (Wellbutrin Xl) 300 mg DAILY PO Last administered on 01/09/17 08: 25; Start 01/08/17 at 09:00 Vitamin D (Vitamin D3) 1,000 unit DAILY PO Last administered on 01/09/17 08:27 ; Start 01/08/17 at 09:00 Duloxetine HCl (Cymbalta) 60 mg DAILY PO Last administered on 01/09/17 08:24; Start 01/08/17 at 09:00 Gabapentin (Neurontin) 300 mg BID PO Last administered on 01/09/17 08:23; Start 01/07/17 at 21:00 Losartan Potassium (Cozaar) 100 mg DAILY PO Last administered on 01/09/17 08:25 ; Start 01/08/17 at 09:00 Enoxaparin Sodium (Lovenox 100mg Syringe) 100 mg 1X ONCE SQ Last administered on 01/07/17 18:19; Start 01/07/17 at 17:15; Stop 01/07/17 at 17:18; Status DC Acetaminophen (Tylenol) 650 mg PRN Q6HRS PRN PO FEVER; Start 01/07/17 at 17:15 Ondansetron HCl (Zofran) 4 mg PRN Q6HRS PRN IV NAUSEA/VOMITING; Start 01/07/17 at 17:15 Morphine Sulfate 2 mg PRN Q2HR PRN IV PAIN; Start 01/07/17 at 17:15 Tramadol HCl (Ultram) 50 mg PRN Q6HRS PRN PO PAIN Last administered on 08:22; Start 01/07/17 at 17:15 Hydralazine HCl (Apresoline) 10 mg PRN Q4HRS PRN IVP ELEVATED BP, SEE COMMENTS ; Start 01/07/17 at 17:15 Docusate Sodium (Colace) 100 mg PRN DAILY PRN PO CONSTIPATION; Start 01/07/17 at 17:15 Potassium Chloride (Klor-Con) 40 meq 1X ONCE PO Last administered on 01/08/17 12:36; Start 01/08/17 at 11:00; Stop 01/08/17 at 11:01; Status DC Daptomycin (Cubicin) 625 mg DAILY IV ; Start 01/09/17 at 09:00; Stop 01/09/17 at 09:00; Status DC Doxycycline Hyclate (Vibra-Tab) 100 mg BID PO Last administered on 01/09/17 08: 22; Start 01/08/17 at 21:00 Doxycycline Hyclate (Vibra-Tab) 100 mg 1X ONCE PO Last administered on 12:36; Start 01/08/17 at 11:15; Stop 01/08/17 at 11:18; Status DC Potassium Chloride (Klor-Con) 40 meq 1X ONCE PO Last administered on 01/09/17 13:15; Start 01/09/17 at 13:00; Stop 01/09/17 at 13:01; Status DC Active Scripts Active Zosyn 3.375 Gram Vial (Piperacillin Sodium/Tazobactam) 3.375 Gm Vial 3.375 Gm IV Q6HRS 42 Days [Warfarin Sodium] 1 EACH Each 1 Each MC PRN DAILY PRN 30 Days Amlodipine Besylate 10 Mg Tablet 10 Mg PO DAILY Reported Cubicin (Daptomycin) 500 Mg Vial 625 Mg IV DAILY Cymbalta (Duloxetine Hcl) 60 Mg Capsule.dr 2 Cap PO DAILY Gabapentin 300 Mg Capsule 300 Mg PO TID Hydrocodone-Apap 7.5-325 (Hydrocodone Bit/Acetaminophen) 1 Each Tablet 1 Tab PO PRN Q6HRS PRN Xanax (Alprazolam) 0.5 Mg Tablet 0.5 Mg PO HS PRN Vitamin D-3 (Cholecalciferol (Vitamin D3)) 2,000 Unit Tablet 1,000 Unit PO DAILY06 Oxybutynin Chloride 5 Mg Tablet 10 Mg PO DAILY06 Atorvastatin Calcium 10 Mg Tablet 10 Mg PO DAILY Losartan Potassium 100 Mg Tablet 100 Mg PO DAILY Bupropion Xl (Bupropion Hcl) 300 Mg Tab.er.24h 300 Mg PO DAILY Vitals/I & O Vital Sign - Last 24 Hours 01/08/17 01/08/17 01/08/17 01/08/17 17:57 19:00 20:00 20:49 Temp 97.5 97.5 Pulse 73 Resp 18 20 B/P (MAP) 118/65 (82) Pulse Ox 93 93 O2 Delivery Nasal Cannula Room Air Nasal Cannula Room Air O2 Flow Rate 2.0 2.0 01/08/17 01/09/17 01/09/17 01/09/17 23:00 03:00 04:38 05:38 Temp 97.5 97.6 97.5 97.6 Pulse 76 64 Resp 20 16 20 20 B/P (MAP) 132/67 (88) 117/52 (73) Pulse Ox 94 94 94 94 O2 Delivery Room Air Room Air BiPAP/CPAP BiPAP/CPAP 01/09/17 01/09/17 01/09/17 01/09/17 07:00 08:22 08:24 08:25 Temp 97.5 97.5 Pulse 67 67 67 Resp 18 16 B/P (MAP) 117/56 (76) 117/56 117/56 Pulse Ox 93 O2 Delivery BiPAP/CPAP Room Air 01/09/17 01/09/17 01/09/17 01/09/17 08:30 09:58 10:49 14:39 Temp 94.5 97.5 94.5 97.5 Pulse 70 75 Resp 20 20 B/P (MAP) 146/30 (68) 144/60 (88) Pulse Ox 93 96 95 O2 Delivery Room Air Room Air Room Air Room Air 01/09/17 16:50 Resp 16 O2 Delivery Room Air Intake and Output 01/08/17 01/08/17 01/09/17 15:00 23:00 07:00 Intake Total 0 ml 340 ml Balance 0 ml 340 ml CLARY MENDOZA MD Jan 09, 2017 17:40
[2017-01-09 19:00] VITALS: BP 144/56
[2017-01-09] MEDS: ALPRAZolam 0.5 MG TABLET PO PRN (21:00)
--- NOTE | 2017-01-09 22:31 | RAD ---
MRI left knee without contrast dated 01/09/2017 9:32 AM Indication: UNSTEADY GAIT, KNEE CONTINUES TO GIVE OUT WITHOUT WARNING, NO SX HX, NO PRIORS no significant pain , loss of sensation. Comparison: No comparison is available. Technique: Routine multiplanar multisequence imaging performed. No contrast administered. Findings: Mild tricompartmental hypertrophic change with small marginal osteophytes. Thinning and surface irregularity of the articular cartilage throughout. Near full-thickness cartilage loss at the weightbearing surfaces medial femoral condyle and medial tibial plateau. Full-thickness cartilage loss at the lateral patellar facet, patellar apex and lateral femoral trochlea. No significant joint effusion. Tiny popliteal cyst. No intra-articular loose body. Anterior cruciate and posterior cruciate ligaments are intact. Medial and lateral collateral complexes are intact. Iliotibial band, popliteus tendon and pes anserine complex within normal limits. Quadriceps and patellar tendon are intact. No abnormality of the medial or lateral retinaculum. Both menisci are normal in morphology and signal. No articular surface tear or para meniscal cyst. Minimal linear increased signal at the medial meniscal body appears to reach the tibial articular surface on one coronal slice and does not meet strict criteria for meniscal tear. There is diffuse fatty atrophy of the knee musculature with severe involvement of the semimembranosus. IMPRESSION: 1. No evidence of internal derangement. 2. Moderate tricompartmental degenerative arthrosis and chondromalacia. There is full-thickness cartilage loss at the anterior compartment with near full-thickness cartilage loss at the medial compartment. 3. Diffuse fatty atrophy and volume loss of the knee musculature with severe involvement of the distal semimembranosus muscle. 4. Tiny popliteal cyst. Electronically signed by: John Charles MD (01/09/2017 10:27 PM) [facility]
[2017-01-09 23:00] VITALS: BP 137/62
[2017-01-10 03:00] VITALS: BP 144/72
[2017-01-10 07:00] VITALS: BP 150/75
[2017-01-10] MEDS ORDERED: REGADENOSON 0.4 MG/5 ML DISP.SYRIN. IV ONE (08:15)
[2017-01-10] MEDS: OXYBUTYNIN CHLORIDE 5 MG TABLET PO SCH ×2 (09:00→09:12)
[2017-01-10] MEDS: buPROPion XL 150 MG TAB.ER.24H. PO SCH (09:12)
[2017-01-10] MEDS: DOXYCYCLINE HYCLATE 100 MG TABLET PO SCH (09:12)
[2017-01-10] MEDS: DULoxetine HCL 30 MG CAPSULE.DR PO SCH (09:12)
[2017-01-10] MEDS: LOSARTAN POTASSIUM 50 MG TABLET. PO SCH (09:12)
[2017-01-10] MEDS: CHOLECALCIFEROL (VITAMIN D3) 1,000 UNIT TABLET PO SCH (09:12)
[2017-01-10] MEDS: GABAPENTIN 300 MG CAPSULE. PO SCH (09:12)
[2017-01-10] MEDS: amLODIPine BESYLATE 10 MG TABLET PO SCH (09:13)
--- NOTE | 2017-01-10 09:21 | PDOC ---
PROGRESS NOTES Subjective Subjective No new complaints. Objective Objective Vital Signs Date Time Temp Pulse Resp B/P (MAP) Pulse Ox O2 Delivery O2 Flow Rate FiO2 01/10/17 07:00 98.7 74 14 150/75 (100) 93 Nasal Cannula 2.0 98.7 Intake and Output 01/10/17 07:00 Intake Total 1220 ml Balance 1220 ml Intake Oral 1220 ml # Voids 4 Physical Exam Physical Exam She had mri scan evidence of DJD of left knee and muscle atrophy of left thigh muscles,probably from her previous left hip and femur surgeries but no torn meniscus.. She remains independent with her mobility and most of her self care despite chronic rotator cuff lesions. Plan Plan of Custodial when medically stable with out patient follow up. Comment Review of Relevant I have reviewed the following items antonio (where applicable) has been applied. Medications Current Medications Lorazepam (Ativan) 1 mg 1X ONCE IV Last administered on 01/07/17 11:07; Start 01/07/17 at 11:15; Stop 01/07/17 at 11:16; Status DC Sodium Chloride 1,000 ml @ 1,000 mls/hr Q1H IV Last administered on 01/07/17 11:07; Start 01/07/17 at 11:15; Stop 01/07/17 at 12:14; Status DC Sodium Chloride (Normal Saline Flush) 10 ml QSHIFT PRN IV AFTER MEDS AND BLOOD DRAWS; Start 01/07/17 at 11:00 Fentanyl Citrate (Fentanyl 2ml Vial) 50 mcg 1X ONCE IV Last administered on 13:15; Start 01/07/17 at 13:00; Stop 01/07/17 at 13:01; Status DC Ondansetron HCl (Zofran) 4 mg PRN Q8HRS PRN IV NAUSEA/VOMITING; Start 01/07/17 at 13:00; Stop 01/08/17 at 12:59; Status DC Fentanyl Citrate (Fentanyl 2ml Vial) 50 mcg PRN Q2HR PRN IV PAIN; Start at 13:00; Stop 01/08/17 at 12:59; Status DC Sodium Chloride 1,000 ml @ 90 mls/hr Q11H7M IV Last administered on 01/07/17 13:16; Start 01/07/17 at 13:30; Stop 01/08/17 at 13:29; Status DC Alprazolam (Xanax) 0.5 mg PRN QHS PRN PO ANXIETY Last administered on 01/09/17 21:00; Start 01/07/17 at 17:15 Amlodipine Besylate (Norvasc) 10 mg DAILY PO Last administered on 01/09/17 08: 24; Start 01/08/17 at 09:00 Atorvastatin Calcium (Lipitor) 10 mg QHS PO Last administered on 01/08/17 20:49 ; Start 01/07/17 at 21:00; Stop 01/09/17 at 12:37; Status DC Acetaminophen/ Hydrocodone Bitart (Lortab 7.5/325) 1 tab PRN Q6HRS PRN PO PAIN Last administered on 01/09/17 16:50; Start 01/07/17 at 17:15 Oxybutynin Chloride (Ditropan) 10 mg DAILY PO ; Start 01/08/17 at 09:00 Bupropion HCl (Wellbutrin Xl) 300 mg DAILY PO Last administered on 01/09/17 08: 25; Start 01/08/17 at 09:00 Vitamin D (Vitamin D3) 1,000 unit DAILY PO Last administered on 01/09/17 08:27 ; Start 01/08/17 at 09:00 Duloxetine HCl (Cymbalta) 60 mg DAILY PO Last administered on 01/09/17 08:24; Start 01/08/17 at 09:00 Gabapentin (Neurontin) 300 mg BID PO Last administered on 01/09/17 20:57; Start 01/07/17 at 21:00 Losartan Potassium (Cozaar) 100 mg DAILY PO Last administered on 01/09/17 08:25 ; Start 01/08/17 at 09:00 Enoxaparin Sodium (Lovenox 100mg Syringe) 100 mg 1X ONCE SQ Last administered on 01/07/17 18:19; Start 01/07/17 at 17:15; Stop 01/07/17 at 17:18; Status DC Acetaminophen (Tylenol) 650 mg PRN Q6HRS PRN PO FEVER; Start 01/07/17 at 17:15 Ondansetron HCl (Zofran) 4 mg PRN Q6HRS PRN IV NAUSEA/VOMITING; Start 01/07/17 at 17:15 Morphine Sulfate 2 mg PRN Q2HR PRN IV PAIN; Start 01/07/17 at 17:15 Tramadol HCl (Ultram) 50 mg PRN Q6HRS PRN PO PAIN Last administered on 21:00; Start 01/07/17 at 17:15 Hydralazine HCl (Apresoline) 10 mg PRN Q4HRS PRN IVP ELEVATED BP, SEE COMMENTS ; Start 01/07/17 at 17:15 Docusate Sodium (Colace) 100 mg PRN DAILY PRN PO CONSTIPATION; Start 01/07/17 at 17:15 Potassium Chloride (Klor-Con) 40 meq 1X ONCE PO Last administered on 01/08/17 12:36; Start 01/08/17 at 11:00; Stop 01/08/17 at 11:01; Status DC Daptomycin (Cubicin) 625 mg DAILY IV ; Start 01/09/17 at 09:00; Stop 01/09/17 at 09:00; Status DC Doxycycline Hyclate (Vibra-Tab) 100 mg BID PO Last administered on 01/09/17 20: 57; Start 01/08/17 at 21:00 Doxycycline Hyclate (Vibra-Tab) 100 mg 1X ONCE PO Last administered on 12:36; Start 01/08/17 at 11:15; Stop 01/08/17 at 11:18; Status DC Potassium Chloride (Klor-Con) 40 meq 1X ONCE PO Last administered on 01/09/17 13:15; Start 01/09/17 at 13:00; Stop 01/09/17 at 13:01; Status DC Regadenoson (Lexiscan) 0.4 mg 1X ONCE IV Last administered on 01/10/17 08:28; Start 01/10/17 at 08:15; Stop 01/10/17 at 08:16; Status DC Active Scripts Active Zosyn 3.375 Gram Vial (Piperacillin Sodium/Tazobactam) 3.375 Gm Vial 3.375 Gm IV Q6HRS 42 Days [Warfarin Sodium] 1 EACH Each 1 Each MC PRN DAILY PRN 30 Days Amlodipine Besylate 10 Mg Tablet 10 Mg PO DAILY Reported Cubicin (Daptomycin) 500 Mg Vial 625 Mg IV DAILY Cymbalta (Duloxetine Hcl) 60 Mg Capsule. 2 Cap PO DAILY Gabapentin 300 Mg Capsule 300 Mg PO TID Hydrocodone-Apap 7.5-325 (Hydrocodone Bit/Acetaminophen) 1 Each Tablet 1 Tab PO PRN Q6HRS PRN Xanax (Alprazolam) 0.5 Mg Tablet 0.5 Mg PO HS PRN Vitamin D-3 (Cholecalciferol (Vitamin D3)) 2,000 Unit Tablet 1,000 Unit PO DAILY06 Oxybutynin Chloride 5 Mg Tablet 10 Mg PO DAILY06 Atorvastatin Calcium 10 Mg Tablet 10 Mg PO DAILY Losartan Potassium 100 Mg Tablet 100 Mg PO DAILY Bupropion Xl (Bupropion Hcl) 300 Mg Tab.er.24h 300 Mg PO DAILY Vitals/I & O Vital Sign - Last 24 Hours 01/09/17 01/09/17 01/09/17 01/09/17 09:58 10:49 14:39 16:50 Temp 94.5 97.5 94.5 97.5 Pulse 70 75 Resp 20 20 16 B/P (MAP) 146/30 (68) 144/60 (88) Pulse Ox 93 96 95 O2 Delivery Room Air Room Air Room Air 01/09/17 01/09/17 01/09/17 01/09/17 17:50 19:00 19:40 21:00 Temp 97.5 97.5 Pulse 76 Resp 16 18 18 B/P (MAP) 144/56 (85) Pulse Ox 96 O2 Delivery Room Air Room Air Room Air Room Air 01/09/17 01/09/17 01/10/17 01/10/17 22:00 23:00 03:00 07:00 Temp 97.3 97.5 98.7 97.3 97.5 98.7 Pulse 75 68 74 Resp 18 18 14 B/P (MAP) 137/62 (87) 144/72 (96) 150/75 (100) Pulse Ox 95 95 93 O2 Delivery Room Air Room Air Room Air Nasal Cannula O2 Flow Rate 2.0 Intake and Output 01/09/17 01/09/17 01/10/17 15:00 23:00 07:00 Intake Total 180 ml 920 ml 120 ml Balance 180 ml 920 ml 120 ml PAUL MCNALLY MD Jan 10, 2017 09:21
--- NOTE | 2017-01-10 12:40 | RAD ---
MR of the left shoulder Indication: Worsening left shoulder pain. History of shoulder replacement. Technique: Standard multiplanar sequences are obtained. Findings: Note there is metal artifact due to the shoulder replacement. Acromioclavicular joint: Mildly degenerative. Rotator cuff: Not evaluated as it is obscured by the artifact. Fluid: May be mild fluid accumulation at the posterior glenohumeral joint. No other evidence of soft tissue fluid collection is seen. Biceps tendon: Not visualized Bones: No lesion or acute fracture. Soft tissue: No concerning edema identified. Impression: 1. There may be mild fluid accumulation at the posterior aspect of the glenohumeral joint. 2. Rotator cuff is obscured by metal artifact. Electronically signed by: John James MD (01/10/2017 12:37 PM) [facility]
--- NOTE | 2017-01-10 12:51 | RAD ---
MR of the right shoulder Indication: Worsening pain. Technique: Standard multiplanar sequences are obtained. Findings: Moderate motion degradation. Acromioclavicular joint: Primary osteoarthritis with undersurface osteophytes. Rotator cuff: Complete full-thickness rupture of the supraspinatus and infraspinatus tendon. Severe retraction to the superior glenoid. Severe muscle atrophy with volume loss and fatty infiltration. Humerus is high riding, contacting the undersurface of the acromion with subchondral degenerative cystic change. Complete full-thickness subscapularis tendon tear. Glenohumeral cartilage: Severe chondromalacia. Fluid: Moderate joint effusion, entering the subdeltoid bursa and acromioclavicular joint. Labrum: Tear of the posterior and superior labrum. Biceps tendon: Not clearly visualized. Bones: No acute fracture. No aggressive bone destruction. Soft tissue: No acute findings. Impression: 1. Massive rotator cuff tear with severe retraction and muscle atrophy. 2. Severe primary osteoarthritis. 3. Posterior through superior labral tear. 4. Nonvisualized biceps tendon. 5. Moderate joint effusion. Electronically signed by: John James MD (01/10/2017 12:48 PM) [facility]
--- NOTE | 2017-01-10 13:10 | RAD ---
APPROVED REPORT Test Type: Pharmacological Stress Nurse/Tech: Carola Estes R.N. Test Indications: elevated troponin, dyspnea Cardiac History: Family history, High cholesterol, Hypertension Medications: See Electronic Medical Record Medical History: See Electronic Medical Record Resting ECG: NSR with freq PVC's and runs of bigeminy Resting Heart Rate: 72 bpm Resting Blood Pressure: 125/80mmHg Pretest Chest Pain: No chest pain Nurse/Tech Notes S1S2, lungs sound clear. IV site not working. site DC'd and new site started with #22 catheter in L t. AC Consent: The procedure was explained to the patient in lay terms. Informed consent was witnessed. Micky eout was entered into [employer]. History and Stress Test performed by Carola Estes R.N. Pharm. Details Pharmacologic stress testing was performed using 0.4mg per 5ml of regadenoson given intravenously ove r 7-10 seconds. Stress Symptoms Dyspnea POST EXERCISE Reason for Termination: Infusion complete Max HR: 95 bpm Max Blood Pressure: 159/54mmHg Blood Pressure response to exercise: Normal blood pressure response during stress. Chest Pain: No. Arrhythmia: Yes. continues to have freq. PVC's ST Change: No. INTERPRETATION Stress EKG Conclusion: Negative Imaging Protocol IMAGE PROTOCOL: Rest Tc-99m/stress Tc-99m 2 days Rest: Stress: Viability: Radiopharm.Tc99m Sestamibi Lthy67mGf Duration 10min. Img Date 01/10/2017 Inj-Img [id number]. Stress Admin Site: IV - Left AntecubitalAdministrator: GÓMEZ Swift, ARRT (R)(N) STRESS DATA End Diast. Vol.119.0mlAv. Heart Rate75.0bpm End Syst. Vol.31.0mlCO Index BSA0.0L/min Myocardial Yskm615.0gEject. Oicxrdjl40.0% Stress Rates Pk. Fill Rate3.06EDV/secLVtime Pk. Fill 206.09msec Pk. Empty Rate4.14ESV/secLVtime Pk. Njtyb988.27msec 06/07 Pk. Fill1.09EDV/sec Stress Scores Regional WT0.00Summed WT4.00 Regional WM0.00Summed WM0.00 The rest and stress images show normal perfusion, normal contraction and thickening. LV Perf. Quant 17 Seg. SSS0.00 Stress Defect Extent (% LAD)0.00Rest Defect Extent (% LAD)Rev. Defect Extent (% LAD)0.00 Stress Defect Extent (% LCX) 0.00Rest Defect Extent (% LCX)Rev. Defect Extent (% LCX)0.00 Stress Defect Extent (% RCA)0.00Rest Defect Extent (% RCA)Rev. Defect Extent (% RCA)0.00 Stress Defect Extent (% CARLA)0.00Rest Defect Extent (% CARLA)Rev. Defect Extent (% CARLA)0.00 Other Information Quality:Average Risk Assessment: Low Risk Conclusion 1. No evidence of EKG changes with stress testing. 2. Normal perfusion at stress, rest images not performed. 3. Low risk study. 4. EF > 60%.
--- NOTE | 2017-01-10 14:26 | PDOC ---
ORTHO PROGRESS NOTES Subjective Patient is feeling better today. Ambulating with therapy and doing well. Feeling more stable. Continues to have pain in both shoulders limiting her normal motion. She had an appointment scheduled for tomorrow with Dr. Henriquez to discuss surgery for her right shoulder. Vitals Vital Signs Date Time Temp Pulse Resp B/P (MAP) Pulse Ox O2 Delivery O2 Flow Rate FiO2 01/10/17 09:13 74 150/75 01/10/17 07:40 Room Air 01/10/17 07:00 98.7 14 93 2.0 98.7 Notes Patient is awake and alert sitting up in chair. Breathing unlabored, no acute distress. Ambulates with the assistance of a walker. Active Range of motion limited bilateral shoulders due to pain. Problems: (1) Shoulder pain, bilateral (2) Left hip pain Assessment and Plan Chronic shoulder pain, I advised her to keep her appointment with Dr. Henriquez tomorrow to discuss treatment Follow up with Dr. Henriquez in regards to her hip as well OK to DC when medically stable Problem Qualifiers (1) Shoulder pain, bilateral: Chronicity: chronic Qualified Codes: M25.512 - Pain in left shoulder; M25.511 - Pain in right shoulder; G89.29 - Other chronic pain PAMELA MCPHERSON [employer] Jan 10, 2017 14:26
[2017-01-10 15:00] VITALS: BP 140/82
[2017-01-10] MEDS ORDERED: DOXY100T PO (15:15)
--- NOTE | 2017-01-10 16:39 | PDOC ---
CARDIO Progress Notes Date and Time Date of Service 01/10/17 Time of Evaluation 1320 Subjective Subjective: No Chest Pain, No shortness of breath, No Palpitations, No Dizziness Vitals Vitals Vital Signs Date Time Temp Pulse Resp B/P (MAP) Pulse Ox O2 Delivery O2 Flow Rate FiO2 01/10/17 15:00 98.7 74 140/82 (101) 93 Room Air 98.7 01/10/17 07:00 14 2.0 Weight Weight [ ] Input and Output Intake and Output Intake and Output 01/10/17 07:00 Intake Total 1220 ml Balance 1220 ml Intake Oral 1220 ml # Voids 4 Physical Exam HEENT: Neck Supple W Full Motion Chest: Symmetric LUNGS: Clear to Auscultation Heart: S1S2, RRR (SR with frequent PVC) Abdomen: Soft N/T Extremities: No Calf Tenderness Neurology: alert, oriented, follow commands Assessment Assessment 1. Presyncope; no acute events noted on telemetry. Echo without significant valvular abnormalities 2. Moderate pulmonary HTN; PAP 50 3. Distant placement of a pericardial window: TTE with noted normal EF and LV systolic function. no pericardial fluid noted. 4 Weakness and fatigue, intermittent SOA; statin intolerance? 5. Rhabdomyolysis/myalgia Peaked troponin at 0.7. MPI without evidence of ischemia. 6. HTN: controlled 7. HLP; LDL 82 8. Recent left hip surgery. No further cardiac workup warranted at this time. May discharge from a cardiac standpoint and f/u in our office in 4 weeks. RAYMUNDO BOBO APRN Jan 10, 2017 16:39
--- NOTE | 2017-01-10 22:40 | DS ---
DATE OF DISCHARGE: 01/10/2017 CHIEF COMPLAINT: Mechanical fall with chronic left leg weakness. HOSPITAL COURSE: The patient is a 66-year-old woman with chronic back pain as well as left leg weakness due to multiple hip and knee surgeries as well as shoulder pain making the use of a walker a bit more difficult. She presented to the Emergency Room after a mechanical fall. She was scanned and did not show any new fractures. However, in the Emergency Room, troponins were minimally elevated and she was therefore admitted for further workup. ACS was ruled out with serial enzymes and EKGs. Cardiology was consulted and an MPI was obtained. This thankfully was negative. She was therefore discharged home by her own preference. PHYSICAL EXAMINATION: VITAL SIGNS: With a blood pressure of 144/60, heart rate of 75, respiratory rate at 16. She is afebrile. GENERAL: This is an obese 66-year-old woman, alert and oriented, in no acute distress. LUNGS: Clear. HEART: Has regular rate and rhythm. ABDOMEN: Has positive bowel sounds, soft, nontender. EXTREMITIES: Show no edema. DISCHARGE DATE: 01/10/2017 DISCHARGE DIAGNOSES: Mechanical fall, troponin leak. DISCHARGE DISPOSITION: To home. DISCHARGE CONDITION: Improved. DISCHARGE MEDICATIONS: Please refer to MAR. DISCHARGE INSTRUCTIONS: The patient will follow up with her PCP in 1-2 weeks. CLARY MENDOZA MD DR: DIONICIO/nts JOB#: [id number] / [id number] ERIC Zelaya MD
== END 2017-01-10 18:15 | disposition home or self-care (01) | DRG 557 ==
LOC: ER 10:45 → 2 SOUTH 12:36 → 4 NORTH 01-08 17:54
PROVIDERS: ADMIT Internal Medicine; ATTEND Internal Medicine
PROC: 5A09357 Assistance with Respiratory Ventilation, Less than 24 Consecutive Hours, Continuous Positive Airway Pressure (ICD-10-PCS; principal; 2017-01-07)
DX: M62.82 Rhabdomyolysis (principal); J96.21 Acute and chronic respiratory failure with hypoxia; M17.0 Bilateral primary osteoarthritis of knee; I25.10 Atherosclerotic heart disease of native coronary artery without angina pectoris; I27.2 Other secondary pulmonary hypertension; E78.00 Pure hypercholesterolemia, unspecified; E66.01 Morbid (severe) obesity due to excess calories; J45.909 Unspecified asthma, uncomplicated; R29.6 Repeated falls; G89.29 Other chronic pain; E78.5 Hyperlipidemia, unspecified; I10 Essential (primary) hypertension; F32.9 Major depressive disorder, single episode, unspecified; I49.3 Ventricular premature depolarization; R32 Unspecified urinary incontinence; Z96.612 Presence of left artificial shoulder joint; Z96.642 Presence of left artificial hip joint; W19.XXXA Unspecified fall, initial encounter; G47.33 Obstructive sleep apnea (adult) (pediatric); E11.42 Type 2 diabetes mellitus with diabetic polyneuropathy; K90.0 Celiac disease; Z82.49 Family history of ischemic heart disease and other diseases of the circulatory system; Z99.2 Dependence on renal dialysis; Z98.1 Arthrodesis status; Z90.49 Acquired absence of other specified parts of digestive tract; Z88.0 Allergy status to penicillin; Y93.89 Activity, other specified; Y92.89 Other specified places as the place of occurrence of the external cause; Y99.2 Volunteer activity; Z68.38 Body mass index [BMI] 38.0-38.9, adult; Z87.442 Personal history of urinary calculi
CPT/HCPCS: 36415; 70450; 71010; 72131; 73221; 73501; 73562; 73721; 78452; 80048; 80061; 80076; 81001; 82553; 83735; 83880; 84443; 84484; 85027; 93005; 93017; 93306; 96361; 96374; 96375; A9500; J1650; J2060; J2785; J3010; J7030; P9612; 97110; 97116; 97530; 97535; 99285-25

== ENCOUNTER 2017-02-27 20:29 | Inpatient (IN) | payer MEDICARE, BC ==
[~2017-02-27] VITALS: Ht 162.6 cm; Wt 98.9 kg
[~2017-02-27 20:29] MED LIST changes: +DOXY100T PO; +[UNRECOGNIZED DRUG - OTHER] PO; +m
--- NOTE | 2017-02-27 21:50 | PHYS DOC ---
Past Medical History Past Medical History: Depression, High Cholesterol, Hypertension, Kidney Stone , Other Additional Past Medical Histor: obesity, celiac, sleep apnea,vision problems, MYASTHENIA GRAVIS Past Surgical History: Cholecystectomy, Hip Replacement Additional Past Surgical Histo: pericardial window,left shoulder replacement, hernia repair,left ovary tumo Additional Information: non smoker Alcohol Use: None Drug Use: None Adult General Chief Complaint Chief Complaint: HIP PAIN HPI HPI Patient is a 66 year old female who presents with left hip pain. She states she is going up the stairs when she felt a pop. She just left her rehabilitation center on Monday and went home. 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 She's had multiple surgeries and has a joint infection the past. She actually was seen here recently as well for workup for stroke. She states she's been diagnosed with myasthenia gravis and they placed her on a low-dose Mestinon pending the official nerve test (scheduled for Apr). She still has generalized weakness and states she just can't get around. No numbness tingling or weakness of the left lower leg. Review of Systems Review of Systems Constitutional: Denies fever or chills Eyes: Denies change in visual acuity, redness, or eye pain HENT: Denies nasal congestion or sore throat; slight runny nose Respiratory: Denies cough or shortness of breath Cardiovascular: No chest pain. GI: Denies abdominal pain, nausea, vomiting, bloody stools or diarrhea : Denies dysuria or hematuria Musculoskeletal: Left hip pain with inability to move left hip Integument: Denies rash or skin lesions Neurologic: Denies headache, focal weakness or sensory changes; generalized weakness. Current Medications Current Medications Current Medications Medications (Trade) Dose Ordered Sig/Priscila Start Time Stop Time Status Last Admin Dose Admin Fentanyl Citrate (Fentanyl 2ml Vial) 50 mcg PRN Q2HR PRN 02/27/17 23:45 02/28/17 23:44 02/28/17 00:57 50 MCG Ondansetron HCl (Zofran) 4 mg PRN Q8HRS PRN 02/27/17 23:45 02/28/17 23:44 02/28/17 00:56 4 MG Sodium Chloride 1,000 ml @ 125 mls/hr 1X ONCE 02/27/17 22:15 02/28/17 06:14 02/27/17 22:15 125 MLS/HR Allergies Allergies Allergies Coded Allergies Type Severity Reaction Last Updated Verified Penicillins Allergy Intermediate Rash 01/22/17 Yes Sulfa (Sulfonamide Antibiotics) Adverse Reaction Intermediate Nausea 07/05/16 Yes Physical Exam Physical Exam Constitutional: Well developed, well nourished, no acute distress, non-toxic appearance. HENT: Normocephalic, atraumatic, bilateral external ears normal, oropharynx moist, no oral exudates, nose normal. Eyes: PERRLA, EOMI, conjunctiva normal, no discharge. Neck: Normal range of motion, no tenderness, supple, no stridor. Cardiovascular:Heart rate regular rhythm, no murmur Lungs & Thorax: Bilateral breath sounds clear to auscultation Abdomen: Bowel sounds normal, soft, no tenderness, no masses, no pulsatile masses. Skin: Warm, dry, no erythema, no rash. Back: No tenderness, no CVA tenderness. Extremities: Left lower leg: no cyanosis, no clubbing, no edema. NVI distally. left leg shortened. Unable to to perform ROM of left hip. Knee and ankle intact. Neurologic: Alert and oriented X 3, normal motor function, normal sensory function, no focal deficits noted. Current Patient Data Vital Signs Vital Signs Date Time Temp Pulse Resp B/P (MAP) Pulse Ox O2 Delivery O2 Flow Rate FiO2 02/27/17 23:30 80 18 147/67 (93) 94 02/27/17 23:00 Nasal Cannula 2.0 02/27/17 20:29 98.1 98.1 Lab Values Laboratory Tests Test 02/27/17 20:42 White Blood Count 10.1 x10^3/uL (4.0-11.0) Red Blood Count 5.40 x10^6/uL (3.50-5.40) Hemoglobin 13.4 g/dL (12.0-15.5) Hematocrit 42.8 % (36.0-47.0) Mean Corpuscular Volume 79 fL (79-100) Mean Corpuscular Hemoglobin 25 pg (25-35) Mean Corpuscular Hemoglobin Concent 31 g/dL (31-37) Red Cell Distribution Width 21.4 % (11.5-14.5) H Platelet Count 383 x10^3/uL (140-400) Neutrophils (%) (Auto) 54 % (31-73) Lymphocytes (%) (Auto) 29 % (24-48) Monocytes (%) (Auto) 11 % (0-9) H Eosinophils (%) (Auto) 4 % (0-3) H Basophils (%) (Auto) 1 % (0-3) Neutrophils # (Auto) 5.5 x10^3uL (1.8-7.7) Lymphocytes # (Auto) 3.0 x10^3/uL (1.0-4.8) Monocytes # (Auto) 1.1 x10^3/uL (0.0-1.1) Eosinophils # (Auto) 0.4 x10^3/uL (0.0-0.7) Basophils # (Auto) 0.1 x10^3/uL (0.0-0.2) Platelet Estimate Adequate (ADEQUATE) Giant Platelets Occ Anisocytosis Mod Sodium Level 144 mmol/L (136-145) Potassium Level 3.6 mmol/L (3.5-5.1) Chloride Level 105 mmol/L (98-107) Carbon Dioxide Level 31 mmol/L (21-32) Anion Gap 8 (6-14) Blood Urea Nitrogen 24 mg/dL (7-20) H Creatinine 0.5 mg/dL (0.6-1.0) L Estimated GFR (Cockcroft-Gault) 123.1 Glucose Level 103 mg/dL (70-99) H Calcium Level 10.5 mg/dL (8.5-10.1) H Creatine Kinase 175 U/L (26-192) Troponin I Quantitative < 0.017 ng/mL (0.000-0.055) Laboratory Tests 02/27/17 20:42 Laboratory Tests 02/27/17 20:42 EKG EKG EKG interpreted by myself at 2221 PM, normal sinus rhythm at 97, trigeminy, leftward axis, no specific ST changes. Interpretation Time: CXR interpreted by myself at 2230 PM: poor inspiratory effort. No acute infiltrate. Radiology/Procedures Radiology/Procedures Left hip with pelvis film interpreted by myself at 2150 PM. It shows dislocation at the left hip prosthesis. No underlying fracture seen. CXR interpreted by myself at 2235 PM: poor inspiratory effort; no acute infiltrate; no pleural effusion Course & Med Decision Making Course & Med Decision Making On my arrival on shift. X-ray was ordered. At 20 1:55 PM x-ray was noted to have a left prosthetic hip dislocation. She is neurovascular intact distally. She has multiple medical problems including a recent diagnosis of myasthenia gravis and is just started on Mestinon. I spoke with Dr. Henriquez at 2210 PM he states that this hip is "extremely difficult to relocate". He did not feel it would be something that we could accomplish in the emergency department tonight. We'll admit to hospitalist, consult Florence, patient will go to the operating room in the morning with Dr. Henriquez will perform the relocation. Called Dr Julian at 2210 PM to accept the patient. I have spoken with the patient and/or caregivers. I have explained the patient' s condition, diagnosis and treatment plan based on the information available to me at this time. I have answered the patient's and/or caregiver's questions and addressed any concerns. The patient and/or caregivers have as good an understanding of the patient's diagnosis, condition and treatment plan as can be expected at this point. The patient has been stabilized within the capability of the emergency department. The patient will be transported for further care and management or will be moved to an observation or inpatient service. I have communicated with the staff or medical practitioner taking over this patient's care. Dragon Disclaimer Dragon Disclaimer This electronic medical record was generated, in whole or in part, using a voice recognition dictation system. Departure Departure Impression: Primary Impression: Hip dislocation, left Disposition: ADMITTED INPATIENT Admitting Physician: Other (Eliel) Condition: STABLE Referrals: ERIC WHITING MD (PCP) Problem Qualifiers Primary Impression: Hip dislocation, left Encounter type: initial encounter Qualified Codes: S73.005A - Unspecified dislocation of left hip, initial encounter NIRMAL CHICAS MD Feb 27, 2017 21:50
[2017-02-27 22:07] LABS: BASO # 0.1 x10^3/uL (0.0-0.2); BASO % 1 % (0-3); EOS % 4 % (0-3); HEMATOCRIT 42.8 % (36.0-47.0); HEMOGLOBIN 13.4 g/dL (12.0-15.5); LYMPH % 29 % (24-48); MEAN CORPUSCULAR HEMOGLOBIN 25 pg (25-35); MEAN CORPUSCULAR HGB CONC 31 g/dL (31-37); MEAN CORPUSCULAR VOLUME 79 fL (79-100); MONO % 11 % (0-9); NEUT % 54 % (31-73); PLATELET COUNT 383 x10^3/uL (140-400); RED CELL DISTRIBUTION WIDTH 21.4 % (11.5-14.5); WHITE BLOOD COUNT 10.1 x10^3/uL (4.0-11.0)
[2017-02-27] MEDS ORDERED: ONDANSETRON PF 4 MG/2 ML VIAL. IV ONE (22:15)
[2017-02-27] MEDS ORDERED: IV NORMAL SALINE 1000ML BAG 1,000 ML IV ONE (22:15)
[2017-02-27] MEDS ORDERED: fentaNYL PF VIAL 100 MCG/2 ML VIAL IV ONE (22:15)
[2017-02-27 22:16] LABS: CALCIUM 10.5 mg/dL (8.5-10.1); CREATININE 0.5 mg/dL (0.6-1.0); GFR 123.1; POTASSIUM 3.6 mmol/L (3.5-5.1)
[2017-02-27 22:45] LABS: ANISOCYTOSIS MOD; PLT ESTIMATE ADEQUATE (ADEQUATE)
[2017-02-28] VITALS (11 sets, daily range): BP systolic 111–172; BP diastolic 63–87
[2017-02-28] MEDS: ONDANSETRON PF 4 MG/2 ML VIAL. IV PRN ×2 (00:56→09:12)
[2017-02-28] MEDS: fentaNYL PF VIAL 100 MCG/2 ML VIAL IV PRN ×6 (00:57→22:02)
[2017-02-28] MEDS: oxyCODONE/APAP 10/325 1 TAB TABLET PO PRN (04:56)
--- NOTE | 2017-02-28 07:04 | EKG ---
[facility] [address] [place] [address] Test Date: 2017-02-27 Test Time: 22:21:16 Pat Name: BENY TYLER Department: Room: 412 Gender: F [employer] Harvester: : 1950 Requested By: NIRMAL CHICAS Order Number: [id number] Reading MD: Yash Medina Measurements Intervals [place] Rate: 97 P: 38 CA: 194 QRS: -13 QRSD: 82 T: 60 QT: 378 QTc: 485 Interpretive Statements SINUS RHYTHM VENTRICULAR PREMATURE COMPLEX(ES), TRIGEMINY LEFTWARD AXIS QRS(T) CONTOUR ABNORMALITY CONSIDER INFERIOR MYOCARDIAL DAMAGE T ABNORMALITY IN ANTERIOR LEADS LATERAL LEADS PROLONGED QT RI6.01 Unconfirmed report Electronically Signed On 03-10-2017 12:38:00 CDT by Yash Medina
--- NOTE | 2017-02-28 09:38 | RAD ---
EXAM: Chest, single view. HISTORY: Shortness of breath. COMPARISON: 01/19/2017. FINDINGS: A frontal view of the chest is obtained. There is no infiltrate, effusion or pneumothorax. There are decreased lung volumes with associated vascular crowding and atelectasis. The heart is normal in size. There is a left shoulder arthroplasty. There is superior migration of the right humeral head due to a chronic rotator cuff tear. IMPRESSION: No acute pulmonary finding.
[2017-02-28] MEDS ORDERED: PYRI60TA2 PO (10:10)
--- NOTE | 2017-02-28 10:13 | RAD ---
Examination: Frontal view of the pelvis History: History of left hip pain, fall down the stairs Comparison: None available Findings: There is superior and medial dislocation of the femoral prosthesis in relation to the acetabular prosthesis. Moderate degenerative changes right hip joint. Impression: Superior and medial dislocation of the femoral prosthesis in relation to the left acetabular prosthesis.
[2017-02-28] MEDS ORDERED: ALPRAZolam 1 MG TABLET PO PRN (12:45)
[2017-02-28] MEDS: DOXYCYCLINE HYCLATE 100 MG TABLET PO SCH ×2 (14:00→21:10)
[2017-02-28] MEDS: GABAPENTIN 300 MG CAPSULE. PO SCH ×2 (14:00→21:10)
--- NOTE | 2017-02-28 14:01 | HP ---
ADMIT DATE: 02/28/2017 CHIEF COMPLAINT: Left hip dislocation. HISTORY OF PRESENT ILLNESS: The patient is a 66-year-old woman with history of left hip replacement and dislocation of joint x 2 in May of last year. She presented to the hospital after she had the exact same sensation while walking up the stairs in her house. She felt a pop and knew same thing had happened and had her daughter call EMS. She actually just had been home since last Monday after being in the hospital for suspected CVA, which was actually ruled out. However, she has a tentative diagnosis of myasthenia gravis and has been started on Mestinon. PAST MEDICAL HISTORY: Pericardial window placement for viral pericarditis, hypertension, hypercholesterolemia, history of kidney stones, celiac disease, sleep apnea, as well as depression. PAST SURGICAL HISTORY: She is status post hernia repair, cholecystectomy, hip replacement and left ovarian tumor resection FAMILY HISTORY: Hypertension. SOCIAL HISTORY: Lives with her . No toxic habits. ALLERGIES: PENICILLIN, but is tolerating Zosyn without any difficulties, SULFA. MEDICATIONS: MAR reconciled with home medications. REVIEW OF SYSTEMS: Pain in left hip as per HPI. She relates that her muscles become tired very easily. Slurred speech is one of her signs that MG is not well controlled on meds. She denies any other symptoms at this time. PHYSICAL EXAMINATION: VITAL SIGNS: From today show a blood pressure of 152/84, heart rate at 74, respiratory rate at 18. She is afebrile. GENERAL: This is an obese 66-year-old woman, alert and oriented, in no acute distress, somewhat depressed of being once again in the hospital. HEENT: Shows no scleral icterus. NECK: Supple. LUNGS: Clear. HEART: Has regular rate and rhythm. ABDOMEN: Obese, positive bowel sounds, soft, nontender. EXTREMITIES: Show no edema. Left leg is inverted. SKIN: Warm, soft and dry without any rash. LABORATORY DATA: CBC with a WBC of 10.1, hemoglobin 13.4, platelets of 383. Chemistries with a BUN and creatinine of 24 and 0.5. Normal electrolytes, calcium at 10.5. CK at 175. TSH at 2.1. IMAGING STUDIES: Pelvic films show superior and medial dislocation of the femoral prosthesis in relation to the left acetabular prosthesis. ASSESSMENT AND PLAN: The patient is a 66-year-old woman with recurrent dislocations of artificial left hip joint. Orthopedic surgeon, Dr. Henriquez has been notified and is planning to take her to the OR later today. In the meantime, pain control will be achieved with IV/p.o. medications. We will keep her n.p.o. for afternoon surgery. She relates that she has taken Mestinon 4 times a day and actually feels that the medication does not last terribly long for her. She attempted to take it more often even unprescribed. I advised her this would not be a good idea without consulting her neurologist. We will place neurologist consult for her to be seen. We will continue all her other home medications. Lovenox for prophylaxis will be held off until after surgery. CLARY MENDOZA MD DR: UR/nts JOB#: [id number] / [id number] Yvonne Dumont MD MTDD
[2017-02-28] MEDS: PYRIDOSTIGMINE BROMIDE 60 MG TABLET PO SCH ×3 (14:36→21:10)
[2017-02-28] MEDS: buPROPion XL 150 MG TAB.ER.24H. PO SCH (14:36)
[2017-02-28] MEDS: DULoxetine HCL 30 MG CAPSULE.DR PO SCH (14:36)
[2017-02-28] MEDS: amLODIPine BESYLATE 10 MG TABLET PO SCH (14:37)
[2017-02-28] MEDS: LOSARTAN POTASSIUM 50 MG TABLET. PO SCH (14:37)
[2017-02-28] MEDS ORDERED: IV RINGERS,LACTATED 1000ML 1,000 ML IV SCH (17:17)
[2017-02-28] MEDS ORDERED: SEVOFLURANE 61 TO 120 MINUTES. IH ONE (17:21)
[2017-02-28] MEDS ORDERED: fentaNYL PF VIAL 100 MCG/2 ML VIAL ONE (17:22)
[2017-02-28] MEDS ORDERED: MIDAZOLAM HCL/PF 2 MG/2 ML VIAL. ONE (17:22)
[2017-02-28] MEDS ORDERED: PROPOFOL 20 ML IV ONE (17:22)
[2017-02-28] MEDS ORDERED: DEXAMETHASONE SOD PHOS 20 MG/5 ML VIAL. ONE (17:23)
[2017-02-28] MEDS ORDERED: LIDOCAINE 2% PF Vial for OR 5 ML VIAL. ONE (17:23)
[2017-02-28] MEDS ORDERED: ONDANSETRON PF 4 MG/2 ML VIAL. ONE (17:23)
[2017-02-28] MEDS ORDERED: HYDROmorphone 2 MG/ML VIAL IV PRN (17:30)
[2017-02-28] MEDS ORDERED: PROCHLORPERAZINE 10 MG/2 ML VIAL. IV PRN (17:30)
[2017-02-28] MEDS ORDERED: LIDOCAINE 1% PF 2 ML VIAL. ID PRN (17:30)
[2017-02-28] MEDS ORDERED: fentaNYL PF VIAL 100 MCG/2 ML VIAL IV PRN (17:30)
[2017-02-28] MEDS ORDERED: MORPHINE SULFATE 2 MG/ML DISP.SYRIN. IV PRN (17:30)
[2017-02-28] MEDS ORDERED: ONDANSETRON PF 4 MG/2 ML VIAL. IV PRN ×2 (17:30→20:30)
[2017-02-28] MEDS ORDERED: CLINDAMYCIN 600MG PREMIX 50 ML IV ONE ×2 (17:35→17:58)
--- NOTE | 2017-02-28 17:38 | PDOC2 ---
NEUROLOGY CONSULT Date of Admission Date of Admission DATE: 02/28/17 TIME: 17:29 Reason for Consult Reason for Consult: MG Left superior and medial dislocation of femoral prothesis. Left hip pain. Vit B12 deficiency. HTN HLD Falls ZENON Obesity. RECOMMENDATIONS/PLAN: Continue Mestinon, 60 mg qid fine. Ortho treatment. Treat medical diseases. 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 No symptoms of respiratory failure, but she felt easily got tired at home. 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 She stated she hurt her left hip but no fall on 02/27 which resulted significant pain in hie left hip to come to [facility] and evaluation found hip dislocation. Past Medical History Cardiovascular: CAD, Other Pulmonary: Asthma CENTRAL NERVOUS SYSTEM: Periperal neuropathy Endocrine: Diabetes Past Surgical History Appendectomy, Arthroscopy, Total hip replacement, Hysterectomy, Other Family History Hypertension Social History Smoke: No ALCOHOL: none Drugs: None ALLERGY: Reviewed. MEDICATIONS: Refer to [facility] REVIEW OF SYSTEMS: Constitutional: No malnutrition, weight loss, cachexia. Head: No traumatic brain or head injury. Skin: No edema, or rash. Ear: No infection. Eyes: No vision loss or color blindness. Nose: No bleeding or purulent discharges. Hearing: Hearing decrease. Neck: No injury. Breast: No history of cancer, masses,or discharges. Cardiac: HTN, HLD. Pulmonary: ZENON GI: No GI ulcer, GI bleeding. Urinary/genital: UTI. Endocrinologic: Obesity. Skeletomuscular: Falls.. Neurological: see HP. Psychiatric: Denies drug use/abuse. Otherwise, not -vgssu review of systems. PHYSICAL EXAMINATION: General appearance is in acute distress. HEENT: Normocephalic and nontraumatic. Eyes, nose, ears, and throat are unremarkable. Neck is supple. No lymphadenopathy. No bruits are heard over the carotid artery. No crepitus. Cardiovascular: S1, S2, regular rate and rhythm. Pulmonary: Clear to auscultation bilaterally. Abdomen: Bowel sounds are positive. Abdomen is soft, nontender, and nondistended. Extremities: No rash, lesions, or edema. No restriction of range of motion NEUROLOGICAL EXAMINATION: Alert Oriented to time, place and person. PERRL. EOMI. CN: no focal findings. Muscle tone: within normal. Muscle strength: 5- UE, 4 right LE. Pain in left LE unable to access accurately. DTR: 2- Plantar reflex: Flexor response bilaterally Gait: not examined in bed. Sensory exam: no abnormal findings. No cerebellar signs elicited. F-T-N test fine. Current Medications Current Medications Current Medications Fentanyl Citrate (Fentanyl 2ml Vial) 50 mcg 1X ONCE IV Last administered on 22:15; Start 02/27/17 at 22:15; Stop 02/27/17 at 22:16; Status DC Ondansetron HCl (Zofran) 4 mg 1X ONCE IV Last administered on 02/27/17 22:15 ; Start 02/27/17 at 22:15; Stop 02/27/17 at 22:16; Status DC Sodium Chloride 1,000 ml @ 125 mls/hr 1X ONCE IV Last administered on 22:15; Start 02/27/17 at 22:15; Stop 02/28/17 at 06:14; Status DC Ondansetron HCl (Zofran) 4 mg PRN Q8HRS PRN IV NAUSEA/VOMITING Last administered on 02/28/17 09:12; Start 02/27/17 at 23:45; Stop 02/28/17 at 23:44 Fentanyl Citrate (Fentanyl 2ml Vial) 50 mcg PRN Q2HR PRN IV PAIN Last administered on 02/28/17 07:27; Start 02/27/17 at 23:45; Stop 02/28/17 at 23:44 Oxycodone/ Acetaminophen (Percocet 5/325) 1 tab PRN Q4HRS PRN PO PAIN; Start at 04:00 Oxycodone/ Acetaminophen (Percocet 10/325) 1 tab PRN Q4HRS PRN PO PAIN Last administered on 02/28/17 04:56; Start 02/28/17 at 04:00 Alprazolam (Xanax) 1 mg PRN TID PRN PO ANXIETY; Start 02/28/17 at 12:45 Amlodipine Besylate (Norvasc) 10 mg DAILY PO Last administered on 02/28/17 14: 37; Start 02/28/17 at 13:00 Atorvastatin Calcium (Lipitor) 10 mg QHS PO ; Start 02/28/17 at 21:00 Daptomycin (Cubicin) 625 mg DAILY IV ; Start 03/01/17 at 09:00; Status UNV Acetaminophen/ Hydrocodone Bitart (Lortab 7.5/325) 1 tab PRN Q6HRS PRN PO PAIN ; Start 02/28/17 at 12:45 Piperacillin Sod/ Tazobactam Sod (Zosyn) 3.375 gm Q6HRS IV ; Start 02/28/17 at 18:00; Status UNV Pyridostigmine [place] (Mestinon) 60 mg QID PO Last administered on 02/28/17 14:36; Start 02/28/17 at 13:00 Bupropion HCl (Wellbutrin Xl) 300 mg DAILY PO Last administered on 02/28/17 14 :36; Start 02/28/17 at 13:00 Duloxetine HCl (Cymbalta) 120 mg DAILY PO Last administered on 02/28/17 14:36 ; Start 02/28/17 at 13:00 Gabapentin (Neurontin) 300 mg TID PO ; Start 02/28/17 at 14:00 Losartan Potassium (Cozaar) 100 mg DAILY PO Last administered on 02/28/17 14: 37; Start 02/28/17 at 13:00 Doxycycline Hyclate (Vibra-Tab) 100 mg BID PO ; Start 02/28/17 at 14:00 Ondansetron HCl (Zofran) 4 mg PRN Q6HRS PRN IV NAUSEA/VOMITING; Start 02/28/17 at 17:30; Stop 03/01/17 at 17:29 Fentanyl Citrate (Fentanyl 2ml Vial) 25 mcg PRN Q5MIN PRN IV MILD PAIN; Start 02/28/17 at 17:30; Stop 03/01/17 at 17:29 Fentanyl Citrate (Fentanyl 2ml Vial) 50 mcg PRN Q5MIN PRN IV MODERATE PAIN; Start 02/28/17 at 17:30; Stop 03/01/17 at 17:29 Morphine Sulfate 1 mg PRN Q10MIN PRN IV SEVERE PAIN; Start 02/28/17 at 17:30; Stop 03/01/17 at 17:29 Ringer's Solution 1,000 ml @ 30 mls/hr Q24H IV ; Start 02/28/17 at 17:17; Stop 03/01/17 at 05:16 Lidocaine HCl (Xylocaine-Mpf 1% Vial) 2 ml 1X PRN PRN ID IV START; Start at 17:30; Stop 03/01/17 at 17:29 Hydromorphone HCl (Dilaudid) 0.5 mg PRN Q10MIN PRN IV SEV PAIN, Second choice; Start 02/28/17 at 17:30; Stop 03/01/17 at 17:29 Prochlorperazine Edisylate (Compazine) 5 mg PACU PRN PRN IV NAUSEA, MRX1; Start 02/28/17 at 17:30; Stop 03/01/17 at 17:29 Sevoflurane (Ultane) 60 ml STK-MED ONCE IH ; Start 02/28/17 at 17:21; Stop 02/28 at 17:22; Status DC Fentanyl Citrate (Fentanyl 2ml Vial) 100 mcg STK-MED ONCE .ROUTE ; Start at 17:22; Stop 02/28/17 at 17:23; Status DC Midazolam HCl (Versed) 2 mg STK-MED ONCE .ROUTE ; Start 02/28/17 at 17:22; Stop 02/28/17 at 17:23; Status DC Propofol 20 ml @ As Directed STK-MED ONCE IV ; Start 02/28/17 at 17:22; Stop at 17:23; Status DC Dexamethasone Sodium Phosphate (Decadron) 20 mg STK-MED ONCE .ROUTE ; Start at 17:23; Stop 02/28/17 at 17:24; Status DC Ondansetron HCl (Zofran) 4 mg STK-MED ONCE .ROUTE ; Start 02/28/17 at 17:23; Stop 02/28/17 at 17:24; Status DC Lidocaine HCl (Lidocaine Pf 2% Vial) 5 ml STK-MED ONCE .ROUTE ; Start 02/28/17 at 17:23; Stop 02/28/17 at 17:24; Status DC Active Scripts Active Doxycycline Hyclate 100 Mg Tablet 100 Mg PO BID [Warfarin Sodium] 1 EACH Each 1 Each PRN DAILY PRN 30 Days Amlodipine Besylate 10 Mg Tablet 10 Mg PO DAILY Reported Mestinon (Pyridostigmine [place]) 60 Mg Tablet 60 Mg PO QID [EquateMultiVitLutein] 1 Tab PO DAILY [m] Cymbalta (Duloxetine Hcl) 60 Mg Capsule.dr 2 Cap PO DAILY Gabapentin 300 Mg Capsule 300 Mg PO TID Hydrocodone-Apap 7.5-325 (Hydrocodone Bit/Acetaminophen) 1 Each Tablet 1 Tab PO PRN Q6HRS PRN Xanax (Alprazolam) 0.5 Mg Tablet 1 Mg PO PRN TID PRN Vitamin D-3 (Cholecalciferol (Vitamin D3)) 2,000 Unit Tablet 1,000 Unit PO DAILY06 Atorvastatin Calcium 10 Mg Tablet 10 Mg PO DAILY Losartan Potassium 100 Mg Tablet 100 Mg PO DAILY Bupropion Xl (Bupropion Hcl) 300 Mg Tab.er.24h 300 Mg PO DAILY Allergies Allergies: Coded Allergies: Penicillins (Verified Allergy, Intermediate, Rash, 01/22/17) ROCEPHIN [place] Sulfa (Sulfonamide Antibiotics) (Verified Adverse Reaction, Intermediate, Nausea, 07/05/16) Vitals VITALS Vital Signs Date Time Temp Pulse Resp B/P (MAP) Pulse Ox O2 Delivery O2 Flow Rate FiO2 02/28/17 17:02 97.0 74 16 142/74 94 Nasal Cannula 2 97.0 Labs Labs Laboratory Tests Test 02/27/17 20:42 White Blood Count 10.1 x10^3/uL (4.0-11.0) Red Blood Count 5.40 x10^6/uL (3.50-5.40) Hemoglobin 13.4 g/dL (12.0-15.5) Hematocrit 42.8 % (36.0-47.0) Mean Corpuscular Volume 79 fL (79-100) Mean Corpuscular Hemoglobin 25 pg (25-35) Mean Corpuscular Hemoglobin Concent 31 g/dL (31-37) Red Cell Distribution Width 21.4 % (11.5-14.5) Platelet Count 383 x10^3/uL (140-400) Neutrophils (%) (Auto) 54 % (31-73) Lymphocytes (%) (Auto) 29 % (24-48) Monocytes (%) (Auto) 11 % (0-9) Eosinophils (%) (Auto) 4 % (0-3) Basophils (%) (Auto) 1 % (0-3) Neutrophils # (Auto) 5.5 x10^3uL (1.8-7.7) Lymphocytes # (Auto) 3.0 x10^3/uL (1.0-4.8) Monocytes # (Auto) 1.1 x10^3/uL (0.0-1.1) Eosinophils # (Auto) 0.4 x10^3/uL (0.0-0.7) Basophils # (Auto) 0.1 x10^3/uL (0.0-0.2) Platelet Estimate Adequate (ADEQUATE) Giant Platelets Occ Anisocytosis Mod Sodium Level 144 mmol/L (136-145) Potassium Level 3.6 mmol/L (3.5-5.1) Chloride Level 105 mmol/L (98-107) Carbon Dioxide Level 31 mmol/L (21-32) Anion Gap 8 (6-14) Blood Urea Nitrogen 24 mg/dL (7-20) Creatinine 0.5 mg/dL (0.6-1.0) Estimated GFR (Cockcroft-Gault) 123.1 Glucose Level 103 mg/dL (70-99) Calcium Level 10.5 mg/dL (8.5-10.1) Creatine Kinase 175 U/L (26-192) Troponin I Quantitative < 0.017 ng/mL (0.000-0.055) Laboratory Tests Test 02/27/17 20:42 White Blood Count 10.1 x10^3/uL (4.0-11.0) Red Blood Count 5.40 x10^6/uL (3.50-5.40) Hemoglobin 13.4 g/dL (12.0-15.5) Hematocrit 42.8 % (36.0-47.0) Mean Corpuscular Volume 79 fL (79-100) Mean Corpuscular Hemoglobin 25 pg (25-35) Mean Corpuscular Hemoglobin Concent 31 g/dL (31-37) Red Cell Distribution Width 21.4 % (11.5-14.5) Platelet Count 383 x10^3/uL (140-400) Neutrophils (%) (Auto) 54 % (31-73) Lymphocytes (%) (Auto) 29 % (24-48) Monocytes (%) (Auto) 11 % (0-9) Eosinophils (%) (Auto) 4 % (0-3) Basophils (%) (Auto) 1 % (0-3) Neutrophils # (Auto) 5.5 x10^3uL (1.8-7.7) Lymphocytes # (Auto) 3.0 x10^3/uL (1.0-4.8) Monocytes # (Auto) 1.1 x10^3/uL (0.0-1.1) Eosinophils # (Auto) 0.4 x10^3/uL (0.0-0.7) Basophils # (Auto) 0.1 x10^3/uL (0.0-0.2) Platelet Estimate Adequate (ADEQUATE) Giant Platelets Occ Anisocytosis Mod Sodium Level 144 mmol/L (136-145) Potassium Level 3.6 mmol/L (3.5-5.1) Chloride Level 105 mmol/L (98-107) Carbon Dioxide Level 31 mmol/L (21-32) Anion Gap 8 (6-14) Blood Urea Nitrogen 24 mg/dL (7-20) Creatinine 0.5 mg/dL (0.6-1.0) Estimated GFR (Cockcroft-Gault) 123.1 Glucose Level 103 mg/dL (70-99) Calcium Level 10.5 mg/dL (8.5-10.1) Creatine Kinase 175 U/L (26-192) Troponin I Quantitative < 0.017 ng/mL (0.000-0.055) ELEANOR KENNEY MD Feb 28, 2017 17:38
[2017-02-28] MEDS ORDERED: PHENYLEPHRINE in 0.9% NACL PF 1 MG/10 ML DISP.SYRIN. IV ONE (17:56)
[2017-02-28] MEDS ORDERED: PIPERACILLIN/TAZOBACTAM 3.375 GM VIAL IV SCH (18:00)
[2017-02-28] MEDS ORDERED: DEXTROSE 50% 25 GM / 50ML DISP.SYRIN. IV PRN (20:30)
[2017-02-28] MEDS: ATORVASTATIN CALCIUM 10 MG TABLET. PO SCH (21:10)
--- NOTE | 2017-02-28 21:24 | PDOC4 ---
Operative Note Operative Note Date of surgery: 02/28/2017 Preoperative diagnosis: Dislocated left constrained total hip arthroplasty Postoperative diagnosis: Same Procedure: Open reduction left constrained total hip arthroplasty with constrained liner exchange Surgeon: Florence Assist: Allie Anesthesia: Gen. endotracheal Estimated blood loss: 150 mL Complications: None Operative indications: Patient is well-known to me from previous hip instability with a constrained liner placed to had a dislocation episode getting up after sitting down on stairs yesterday. X-rays showed a clear dislocation despite the locking ring remaining in place. I indicated to the patient the need for open reduction and exploration of the implant with at a minimum open reduction possibility of implant revision as required. All her questions were answered consent was obtained and she agrees to proceed with operative evaluation and treatment Operative text: Patient was identified procedure verified patient placed in the supine position on the operating table. After adequate amounts of general endotracheal anesthesia were administered, she was placed in the decubitus position left side up with support with a Stulberg hip positioner all bony prominences were well-padded and the left lower extremity was prepped and draped in standard sterile fashion. After timeout was performed patient procedure identified and verified and incision was made curvilinear along the previous incision dissection carried out down to the iliotibial band and gluteal fascia which were divided she was found to have a hematoma with normal- appearing otherwise blood-tinged joint fluid and a clear dislocation present. Previous trochanteric fixation claw was intact. Femoral head was noted to be lightly scuffed on the component and was removed the locking ring was noted indeed to remain intact although there was some deformation of the plastic retention ears on the component despite the intact ring for fixation. There was no clear evidence of impingement or malposition as the retention tabs were properly located at 1:00 and 7:00 respectively. Locking ring was removed the retentive liner was removed from the well fixed acetabular shell and thorough irrigation carried out normal saline solution. Any surrounding tissue was removed with electrocautery and a replacement retentive liner 56 mm outer diameter 32 mm inner diameter was tapped into place without difficulty a replacement -3.5 32 mm cobalt-chromium head was tapped into place to engage the Talbert taper and reduced and the retentive liner and the locking ring was completely impacted with no intervening tissue present. The leg was taken through range of motion to verify lack of any impingement and adequate capture of the femoral head. Thorough irrigation again carried out normal saline solution hip capsule was repaired with Ethibond suture layered closure of the fascia with Ethibond suture and #1 Vicryl in a buried fashion with additional subcutaneous closure with 0 and 2-0 Vicryl and skin closure accomplished with nylon suture and a vertical mattress fashion to parvin skin edges maximally. Sterile dressings were applied patient was returned to recovery room in stable condition having tolerated procedure well. Allie coffey was present for positioning prepping draping and assisted in skin closure JAYLEEN SONG MD Feb 28, 2017 21:21
[2017-03-01] MEDS: oxyCODONE/APAP 10/325 1 TAB TABLET PO PRN ×2 (00:02→12:49)
[2017-03-01] MEDS: CLINDAMYCIN 900MG PREMIX 50 ML IV SCH ×3 (00:02→12:42)
[2017-03-01] MEDS: fentaNYL PF VIAL 100 MCG/2 ML VIAL IV PRN (00:04)
[2017-03-01 03:00] VITALS: BP 116/55
[2017-03-01 05:20] LABS: BASO % 1 % (0-3); EOS % 0 % (0-3); HEMATOCRIT 42.8 % (36.0-47.0); HEMOGLOBIN 13.9 g/dL (12.0-15.5); LYMPH # 1.8 x10^3/uL (1.0-4.8); LYMPH % 19 % (24-48); MEAN CORPUSCULAR HEMOGLOBIN 26 pg (25-35); MEAN CORPUSCULAR HGB CONC 33 g/dL (31-37); MEAN CORPUSCULAR VOLUME 79 fL (79-100); MONO % 8 % (0-9); NEUT % 73 % (31-73); PLATELET COUNT 369 x10^3/uL (140-400); RED BLOOD COUNT 5.44 x10^6/uL (3.50-5.40); RED CELL DISTRIBUTION WIDTH 21.2 % (11.5-14.5); WHITE BLOOD COUNT 9.6 x10^3/uL (4.0-11.0)
[2017-03-01 05:49] LABS: CALCIUM 9.9 mg/dL (8.5-10.1); CREATININE 0.5 mg/dL (0.6-1.0); GFR 123.1; POTASSIUM 3.5 mmol/L (3.5-5.1)
[2017-03-01 07:00] VITALS: BP 112/58
[2017-03-01] MEDS: DULoxetine HCL 30 MG CAPSULE.DR PO SCH (08:47)
[2017-03-01] MEDS: GABAPENTIN 300 MG CAPSULE. PO SCH ×3 (08:47→21:03)
[2017-03-01] MEDS: amLODIPine BESYLATE 10 MG TABLET PO SCH (08:47)
[2017-03-01] MEDS: PYRIDOSTIGMINE BROMIDE 60 MG TABLET PO SCH ×4 (08:47→21:03)
[2017-03-01] MEDS: DOXYCYCLINE HYCLATE 100 MG TABLET PO SCH ×2 (08:47→21:03)
[2017-03-01] MEDS: buPROPion XL 150 MG TAB.ER.24H. PO SCH (08:47)
[2017-03-01] MEDS: LOSARTAN POTASSIUM 50 MG TABLET. PO SCH (08:48)
[2017-03-01] MEDS: HYDROcodone/APAP 7.5/325MG 1 TAB TABLET PO PRN (08:49)
[2017-03-01] MEDS ORDERED: DAPTOmycin 500 MG VIAL IV SCH (09:00)
--- NOTE | 2017-03-01 11:02 | PDOC ---
PROGRESS NOTES Chief Complaint Chief Complaint L hip dislocation ASSESSMENT AND PLAN: 1. Hip dislocation: s/p surgical fixation on 02/28. recovering appropriately 2. Pain control: adequate on current PO/IV regimen 3. ?MG: on mestinon. Dr Hussein consulted 4. L leg weakness: s/p multiple left hip and knee surgeries. 5. Chronic back pain: hx injections with good results 6. Chronic (R) shoulder pain: s/p L shoulder replacement; not eager for rpt surgery 7. CAD/HTN/HLD: no acute issues. continue home meds 8. ZENON: on CPAP 9. peripheral neuropathy: on gabapentin 10. B12 deficiency: on oral repletion 11. Anemia: iron deficiency; replete orally 12. Asthma: no acute issues. cont nebs 13. Morbid obesity (BMI 39): nutrition consult 14. Depression: stable mood; cont home meds 15. 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 Prophylaxis: lovenox 17. Dispo: OT/PT eval for acute rehab History of Present Illness History of Present Illness c/o pain, just receive meds. no N/V, but feels a but discombobulated this AM Vitals Vitals Vital Signs Date Time Temp Pulse Resp B/P (MAP) Pulse Ox O2 Delivery O2 Flow Rate FiO2 03/01/17 09:40 93 Nasal Cannula 3.0 03/01/17 08:48 80 112/58 03/01/17 07:00 97.7 16 97.7 Physical Exam General: Alert, Oriented X3, Cooperative, No acute distress Heart: Regular rate Lungs: Clear Abdomen: Normal bowel sounds, No tenderness Extremities: No edema Labs LABS Laboratory Tests Test 03/01/17 03:55 White Blood Count 9.6 x10^3/uL (4.0-11.0) Red Blood Count 5.44 x10^6/uL (3.50-5.40) Hemoglobin 13.9 g/dL (12.0-15.5) Hematocrit 42.8 % (36.0-47.0) Mean Corpuscular Volume 79 fL (79-100) Mean Corpuscular Hemoglobin 26 pg (25-35) Mean Corpuscular Hemoglobin Concent 33 g/dL (31-37) Red Cell Distribution Width 21.2 % (11.5-14.5) Platelet Count 369 x10^3/uL (140-400) Neutrophils (%) (Auto) 73 % (31-73) Lymphocytes (%) (Auto) 19 % (24-48) Monocytes (%) (Auto) 8 % (0-9) Eosinophils (%) (Auto) 0 % (0-3) Basophils (%) (Auto) 1 % (0-3) Neutrophils # (Auto) 7.1 x10^3uL (1.8-7.7) Lymphocytes # (Auto) 1.8 x10^3/uL (1.0-4.8) Monocytes # (Auto) 0.7 x10^3/uL (0.0-1.1) Eosinophils # (Auto) 0.0 x10^3/uL (0.0-0.7) Basophils # (Auto) 0.0 x10^3/uL (0.0-0.2) Sodium Level 144 mmol/L (136-145) Potassium Level 3.5 mmol/L (3.5-5.1) Chloride Level 104 mmol/L (98-107) Carbon Dioxide Level 34 mmol/L (21-32) Anion Gap 6 (6-14) Blood Urea Nitrogen 14 mg/dL (7-20) Creatinine 0.5 mg/dL (0.6-1.0) Estimated GFR (Cockcroft-Gault) 123.1 Glucose Level 115 mg/dL (70-99) Calcium Level 9.9 mg/dL (8.5-10.1) CLARY MENDOZA MD Mar 01, 2017 11:01
[2017-03-01 11:25] VITALS: BP 113/54
[2017-03-01 15:02] VITALS: BP 98/52
--- NOTE | 2017-03-01 17:36 | PDOC ---
PROGRESS NOTES Assessment Assessment MG Left superior and medial dislocation of femoral prothesis. Left hip pain. Vit B12 deficiency. HTN HLD Falls ZENON Obesity. RECOMMENDATIONS/PLAN: Continue Mestinon, 60 mg qid fine. Ortho treatment. Treat medical diseases. 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 No symptoms of respiratory failure, but she felt easily got tired at home. 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 She stated she hurt her left hip but no fall on 02/27 which resulted significant pain in hie left hip to come to the [facility] and evaluation found hip dislocation. Past Medical History Cardiovascular: CAD, Other Pulmonary: Asthma CENTRAL NERVOUS SYSTEM: Periperal neuropathy Endocrine: Diabetes Past Surgical History Appendectomy, Arthroscopy, Total hip replacement, Hysterectomy, Other Family History Hypertension Social History Smoke: No ALCOHOL: none Drugs: None ALLERGY: Reviewed. MEDICATIONS: Refer to MAR REVIEW OF SYSTEMS: Constitutional: No malnutrition, weight loss, cachexia. Head: No traumatic brain or head injury. Skin: No edema, or rash. Ear: No infection. Eyes: No vision loss or color blindness. Nose: No bleeding or purulent discharges. Hearing: Hearing decrease. Neck: No injury. Breast: No history of cancer, masses,or discharges. Cardiac: HTN, HLD. Pulmonary: ZENON GI: No GI ulcer, GI bleeding. Urinary/genital: UTI. Endocrinologic: Obesity. Skeletomuscular: Falls.. Neurological: see HP. Psychiatric: Denies drug use/abuse. Otherwise, not [id number] review of systems. PHYSICAL EXAMINATION: General appearance is in subacute distress. HEENT: Normocephalic and nontraumatic. Eyes, nose, ears, and throat are unremarkable. Neck is supple. No lymphadenopathy. No bruits are heard over the carotid artery. No crepitus. Cardiovascular: S1, S2, regular rate and rhythm. Pulmonary: Clear to auscultation bilaterally. Abdomen: Bowel sounds are positive. Abdomen is soft, nontender, and nondistended. Extremities: No rash, lesions, or edema. No restriction of range of motion NEUROLOGICAL EXAMINATION: Alert Oriented to time, place and person. PERRL. EOMI. CN: no focal findings. Muscle tone: within normal. Muscle strength: 5- UE, 4 right LE. Pain in left LE unable to access accurately. DTR: 2- Plantar reflex: Flexor response bilaterally Gait: not examined in bed. Sensory exam: no abnormal findings. No cerebellar signs elicited. F-T-N test fine. Objective Objective Vital Signs Date Time Temp Pulse Resp B/P (MAP) Pulse Ox O2 Delivery O2 Flow Rate FiO2 03/01/17 15:02 97.5 76 16 98/52 (67) 95 Nasal Cannula 3.0 97.5 Intake and Output 03/02/17 06:59 Intake Total 480 ml Balance 480 ml Intake Oral 480 ml Vitals Signs Vitals VS - Last 72 Hours, by Label Date Time Temp Pulse Resp B/P (MAP) Pulse Ox O2 Delivery O2 Flow Rate FiO2 03/01/17 15:02 97.5 76 16 98/52 (67) 95 Nasal Cannula 3.0 97.5 03/01/17 13:40 95 Nasal Cannula 03/01/17 12:49 98 Nasal Cannula 03/01/17 11:25 95.9 83 16 113/54 (73) 98 Nasal Cannula 3.0 95.9 03/01/17 09:40 93 Nasal Cannula 3.0 03/01/17 08:49 93 Nasal Cannula 3.0 03/01/17 08:48 80 112/58 03/01/17 08:47 80 112/58 03/01/17 08:00 Nasal Cannula 03/01/17 07:00 97.7 80 16 112/58 (76) 93 Nasal Cannula 3.0 97.7 03/01/17 03:00 98.1 83 20 116/55 (75) 94 Nasal Cannula 3.0 98.1 03/01/17 01:02 20 4.0 03/01/17 00:34 20 Nasal Cannula 4.0 03/01/17 00:04 20 Nasal Cannula 4.0 03/01/17 00:02 20 Nasal Cannula 4.0 02/28/17 23:00 98.4 88 20 134/70 (91) 97 BiPAP/CPAP 98.4 02/28/17 22:45 84 18 111/64 (80) 95 BiPAP/CPAP 02/28/17 22:02 20 BiPAP/CPAP 02/28/17 21:45 87 18 118/87 (97) 95 Nasal Cannula 02/28/17 21:15 87 18 112/66 (81) 94 Nasal Cannula 3.0 02/28/17 21:00 83 18 121/63 (82) 93 Nasal Cannula 3.0 02/28/17 20:45 84 18 130/70 (90) 93 Nasal Cannula 3.0 02/28/17 20:33 Nasal Cannula 3 02/28/17 20:33 97.0 78 20 158/78 93 Nasal Cannula 3 97.0 02/28/17 20:30 98.1 92 20 128/72 (90) 93 Nasal Cannula 3.0 98.1 02/28/17 20:18 78 20 156/68 96 Nasal Cannula 3 02/28/17 20:03 88 20 130/53 93 Nasal Cannula 2 02/28/17 19:48 87 20 130/60 90 Nasal Cannula 3 02/28/17 19:43 20 99 02/28/17 19:33 87 20 131/61 95 Simple Mask 10 02/28/17 19:33 Mask 10 02/28/17 17:02 97.0 74 16 142/74 94 Nasal Cannula 2 97.0 02/28/17 15:00 97.7 73 18 122/68 (86) 98 Nasal Cannula 2.0 97.7 02/28/17 14:37 74 152/84 02/28/17 14:37 74 152/84 02/28/17 11:00 97.5 74 18 152/84 (106) 96 Nasal Cannula 2.0 97.5 02/28/17 08:00 Nasal Cannula 2.0 02/28/17 07:27 Nasal Cannula 2.0 02/28/17 07:22 Nasal Cannula 2.0 02/28/17 07:00 97.5 84 16 134/75 (94) 93 2.0 97.5 Laboratory Laboratory Laboratory Tests Test 03/01/17 03:55 03/01/17 14:20 White Blood Count 9.6 x10^3/uL (4.0-11.0) Red Blood Count 5.44 x10^6/uL (3.50-5.40) Hemoglobin 13.9 g/dL (12.0-15.5) Hematocrit 42.8 % (36.0-47.0) Mean Corpuscular Volume 79 fL (79-100) Mean Corpuscular Hemoglobin 26 pg (25-35) Mean Corpuscular Hemoglobin Concent 33 g/dL (31-37) Red Cell Distribution Width 21.2 % (11.5-14.5) Platelet Count 369 x10^3/uL (140-400) Neutrophils (%) (Auto) 73 % (31-73) Lymphocytes (%) (Auto) 19 % (24-48) Monocytes (%) (Auto) 8 % (0-9) Eosinophils (%) (Auto) 0 % (0-3) Basophils (%) (Auto) 1 % (0-3) Neutrophils # (Auto) 7.1 x10^3uL (1.8-7.7) Lymphocytes # (Auto) 1.8 x10^3/uL (1.0-4.8) Monocytes # (Auto) 0.7 x10^3/uL (0.0-1.1) Eosinophils # (Auto) 0.0 x10^3/uL (0.0-0.7) Basophils # (Auto) 0.0 x10^3/uL (0.0-0.2) Sodium Level 144 mmol/L (136-145) Potassium Level 3.5 mmol/L (3.5-5.1) Chloride Level 104 mmol/L (98-107) Carbon Dioxide Level 34 mmol/L (21-32) Anion Gap 6 (6-14) Blood Urea Nitrogen 14 mg/dL (7-20) Creatinine 0.5 mg/dL (0.6-1.0) Estimated GFR (Cockcroft-Gault) 123.1 Glucose Level 115 mg/dL (70-99) Calcium Level 9.9 mg/dL (8.5-10.1) Glucose (Fingerstick) 106 mg/dL (70-99) Medication Medications Current Medications Atorvastatin Calcium (Lipitor) 10 mg QHS PO Last administered on 02/28/17 21: 10; Start 02/28/17 at 21:00 Clindamycin Phosphate 50 ml @ 100 mls/hr 1X ONCE IV Last administered on 02/28 17:58; Start 02/28/17 at 17:58; Stop 02/28/17 at 19:42; Status DC Clindamycin Phosphate 50 ml @ 100 mls/hr Q6H IV Last administered on 12:42; Start 03/01/17 at 00:00; Stop 03/01/17 at 12:29; Status DC Clindamycin Phosphate 50 ml @ As Directed STK-MED ONCE IV ; Start 02/28/17 at 17 :35; Stop 02/28/17 at 17:36; Status DC Daptomycin (Cubicin) 625 mg DAILY IV ; Start 03/01/17 at 09:00; Status UNV Dextrose (Dextrose 50%-Water Syringe) 12.5 gm PRN Q15MIN PRN IV SEE COMMENTS; Start 02/28/17 at 20:30 Fentanyl Citrate (Fentanyl 2ml Vial) 25 mcg PRN Q5MIN PRN IV MILD PAIN; Start 02/28/17 at 17:30; Stop 03/01/17 at 17:29 Fentanyl Citrate (Fentanyl 2ml Vial) 50 mcg PRN Q5MIN PRN IV MODERATE PAIN Last administered on 03/01/17t 00:04; Start 02/28/17 at 17:30; Stop 03/01/17 at 17:29 Hydromorphone HCl (Dilaudid) 0.5 mg PRN Q10MIN PRN IV SEV PAIN, Second choice; Start 02/28/17 at 17:30; Stop 03/01/17 at 17:29 Lidocaine HCl (Xylocaine-Mpf 1% Vial) 2 ml 1X PRN PRN ID IV START; Start at 17:30; Stop 03/01/17 at 17:29 Morphine Sulfate 1 mg PRN Q10MIN PRN IV SEVERE PAIN; Start 02/28/17 at 17:30; Stop 03/01/17 at 17:29 Ondansetron HCl (Zofran) 4 mg PRN Q4HRS PRN IV NAUSEA/VOMITING 1ST CHOICE; Start 02/28/17 at 20:30 Ondansetron HCl (Zofran) 4 mg PRN Q6HRS PRN IV NAUSEA/VOMITING; Start 02/28/17 at 17:30; Stop 03/01/17 at 17:29 Phenylephrine HCl 1 mg STK-MED ONCE IV ; Start 02/28/17 at 17:56; Stop 02/28/17 at 17:57; Status DC Piperacillin Sod/ Tazobactam Sod (Zosyn) 3.375 gm Q6HRS IV ; Start 02/28/17 at 18:00; Status UNV Prochlorperazine Edisylate (Compazine) 5 mg PACU PRN PRN IV NAUSEA, MRX1; Start 02/28/17 at 17:30; Stop 03/01/17 at 17:29 Comment Review of Relevant I have reviewed the following items antonio (where applicable) has been applied. ELEANOR KENNEY MD Mar 01, 2017 17:36
[2017-03-01] MEDS ORDERED: IOHEXOL 300 MG/ML 75 ML VIAL IV ONE (17:45)
--- NOTE | 2017-03-01 17:54 | PDOC ---
PROGRESS NOTES Subjective Subjective Problems overnight: Some bloody drainage on bandage when she got up pain is reasonably controlled Objective Vital Signs Vital Signs Date Time Temp Pulse Resp B/P (MAP) Pulse Ox O2 Delivery O2 Flow Rate FiO2 03/01/17 15:02 97.5 76 16 98/52 (67) 95 Nasal Cannula 3.0 97.5 Physical Exam Dressing changed incision intact leg lengths equal distal neurovascular status intact Labs Laboratory Tests Test 02/27/17 20:42 03/01/17 03:55 03/01/17 14:20 White Blood Count 10.1 x10^3/uL (4.0-11.0) 9.6 x10^3/uL (4.0-11.0) Red Blood Count 5.40 x10^6/uL (3.50-5.40) 5.44 x10^6/uL (3.50-5.40) Hemoglobin 13.4 g/dL (12.0-15.5) 13.9 g/dL (12.0-15.5) Hematocrit 42.8 % (36.0-47.0) 42.8 % (36.0-47.0) Mean Corpuscular Volume 79 fL (79-100) 79 fL (79-100) Mean Corpuscular Hemoglobin 25 pg (25-35) 26 pg (25-35) Mean Corpuscular Hemoglobin Concent 31 g/dL (31-37) 33 g/dL (31-37) Red Cell Distribution Width 21.4 % (11.5-14.5) 21.2 % (11.5-14.5) Platelet Count 383 x10^3/uL (140-400) 369 x10^3/uL (140-400) Neutrophils (%) (Auto) 54 % (31-73) 73 % (31-73) Lymphocytes (%) (Auto) 29 % (24-48) 19 % (24-48) Monocytes (%) (Auto) 11 % (0-9) 8 % (0-9) Eosinophils (%) (Auto) 4 % (0-3) 0 % (0-3) Basophils (%) (Auto) 1 % (0-3) 1 % (0-3) Neutrophils # (Auto) 5.5 x10^3uL (1.8-7.7) 7.1 x10^3uL (1.8-7.7) Lymphocytes # (Auto) 3.0 x10^3/uL (1.0-4.8) 1.8 x10^3/uL (1.0-4.8) Monocytes # (Auto) 1.1 x10^3/uL (0.0-1.1) 0.7 x10^3/uL (0.0-1.1) Eosinophils # (Auto) 0.4 x10^3/uL (0.0-0.7) 0.0 x10^3/uL (0.0-0.7) Basophils # (Auto) 0.1 x10^3/uL (0.0-0.2) 0.0 x10^3/uL (0.0-0.2) Platelet Estimate Adequate (ADEQUATE) Giant Platelets Occ Anisocytosis Mod Sodium Level 144 mmol/L (136-145) 144 mmol/L (136-145) Potassium Level 3.6 mmol/L (3.5-5.1) 3.5 mmol/L (3.5-5.1) Chloride Level 105 mmol/L (98-107) 104 mmol/L (98-107) Carbon Dioxide Level 31 mmol/L (21-32) 34 mmol/L (21-32) Anion Gap 8 (6-14) 6 (6-14) Blood Urea Nitrogen 24 mg/dL (7-20) 14 mg/dL (7-20) Creatinine 0.5 mg/dL (0.6-1.0) 0.5 mg/dL (0.6-1.0) Estimated GFR (Cockcroft-Gault) 123.1 123.1 Glucose Level 103 mg/dL (70-99) 115 mg/dL (70-99) Calcium Level 10.5 mg/dL (8.5-10.1) 9.9 mg/dL (8.5-10.1) Creatine Kinase 175 U/L (26-192) Troponin I Quantitative < 0.017 ng/mL (0.000-0.055) Glucose (Fingerstick) 106 mg/dL (70-99) Laboratory Tests Test 03/01/17 03:55 03/01/17 14:20 White Blood Count 9.6 x10^3/uL (4.0-11.0) Red Blood Count 5.44 x10^6/uL (3.50-5.40) Hemoglobin 13.9 g/dL (12.0-15.5) Hematocrit 42.8 % (36.0-47.0) Mean Corpuscular Volume 79 fL (79-100) Mean Corpuscular Hemoglobin 26 pg (25-35) Mean Corpuscular Hemoglobin Concent 33 g/dL (31-37) Red Cell Distribution Width 21.2 % (11.5-14.5) Platelet Count 369 x10^3/uL (140-400) Neutrophils (%) (Auto) 73 % (31-73) Lymphocytes (%) (Auto) 19 % (24-48) Monocytes (%) (Auto) 8 % (0-9) Eosinophils (%) (Auto) 0 % (0-3) Basophils (%) (Auto) 1 % (0-3) Neutrophils # (Auto) 7.1 x10^3uL (1.8-7.7) Lymphocytes # (Auto) 1.8 x10^3/uL (1.0-4.8) Monocytes # (Auto) 0.7 x10^3/uL (0.0-1.1) Eosinophils # (Auto) 0.0 x10^3/uL (0.0-0.7) Basophils # (Auto) 0.0 x10^3/uL (0.0-0.2) Sodium Level 144 mmol/L (136-145) Potassium Level 3.5 mmol/L (3.5-5.1) Chloride Level 104 mmol/L (98-107) Carbon Dioxide Level 34 mmol/L (21-32) Anion Gap 6 (6-14) Blood Urea Nitrogen 14 mg/dL (7-20) Creatinine 0.5 mg/dL (0.6-1.0) Estimated GFR (Cockcroft-Gault) 123.1 Glucose Level 115 mg/dL (70-99) Calcium Level 9.9 mg/dL (8.5-10.1) Glucose (Fingerstick) 106 mg/dL (70-99) Assessment Assessment POD# [1], S/P [open reduction dislocated hip] Problems: Plan Plan of Care Mobilize with physical therapy Discussed placement issues with case management including possible rehabilitation alternatives versus home with home health if she is doing very well Britany dressing if drainage persists JAYLEEN SONG MD Mar 01, 2017 17:54
--- NOTE | 2017-03-01 18:26 | CONS ---
DATE OF CONSULTATION: 02/28/2017 REQUESTING PHYSICIAN: Geneva Julian MD REASON FOR CONSULTATION: Left hip dislocation. HISTORY OF PRESENT ILLNESS: The patient is a 66-year-old female well known to me from a history of a left total hip arthroplasty that underwent a constrained total hip conversion due to a previous instability episodes and was getting around fairly well up until the point where she sat down to rest on the stairs and when she went to get up, felt the sensation of her hip giving out with a pop and pain and was brought in through the Emergency Department. She had a previous hospitalization last week for a suspected stroke which was ruled out, but she has been recently treated for myasthenia gravis and just started on some new medication called Mestinon for that. PAST MEDICAL HISTORY: Significant for viral pericarditis, hypertension, hypercholesterolemia, kidney stones, celiac disease and sleep apnea. PAST SURGICAL HISTORY: Significant for the hip replacement, hernia repair, cholecystectomy, resection of an ovarian tumor. FAMILY HISTORY: Hypertension. SOCIAL HISTORY: Lives with her . Denies smoking, alcohol or drug use. ALLERGIES: INCLUDE PENICILLIN AND SULFA, but she has been on Zosyn in the past. MEDICATIONS: List is reviewed. REVIEW OF SYSTEMS: Significant for her left hip pain, easy fatigability, some slurring of her speech. Denies any fever, chills, chest pain, shortness of breath, focal weakness as it is generalized and denies any loss of consciousness or other extremity injury from her episode of the hip dislocation. PHYSICAL EXAMINATION: GENERAL: A pleasant, cooperative 66-year-old female. VITAL SIGNS: Per admission sheet. HEENT: Atraumatic, normocephalic. EXTREMITIES: Examination of the left hip reveals short and internally rotated with a leg length discrepancy expected, pain with any motion. Well-healed incision from her previous operation on the hip. She has a normal motion of bilateral knees and ankles. Normal examination of the contralateral right hip and intact motor function, distal pulses, sensation, reflexes in both lower extremities throughout. IMAGING: X-rays show a constrained total hip arthroplasty which appear to show the ring fixating the head to be intact, but the femoral head is dislocated with an intact femoral stem present and an intact claw fixation of the greater trochanter. IMPRESSION: Left hip dislocation of a constrained total hip arthroplasty. TREATMENT PLAN: I had gone over with her operative treatment options of what needs to be an open reduction procedure, possible replacement of any deficient component. All her questions were answered. We will plan on surgical exploration today and avoidance of any paralytic agent because of her neurologic medicine currently. JAYLEEN SONG MD DR: TANNER/keyanna JOB#: [id number] / [id number]
[2017-03-01 19:00] VITALS: BP 123/63
--- NOTE | 2017-03-01 19:07 | RAD ---
Clinical Indication: Lethargy, diaphoresis, mental status change. Technique: Study is dated March 01, 2017. CT images of the head were obtained from the skull base to the vertex without IV contrast. Comparison is from January 19, 2017. One or more of the following individualized dose reduction techniques were utilized for this examination: 1. Automated exposure control 2. Adjustment of the mA and/or kV according to patient size 3. Use of iterative reconstruction technique Findings: There is diffuse, symmetric prominence of the ventricles and subarachnoid spaces consistent with age-related parenchymal volume loss. There are areas of minimal scattered decreased attenuation in the supratentorial white matter. While nonspecific, findings are likely secondary to small vessel ischemic disease. There is no hemorrhage, extraaxial fluid collection, mass, or midline shift. There is no large vascular distribution infarct. The posterior fossa and brainstem are unremarkable. Orbits are normal. The visualized paranasal sinuses are clear. There is no skull fracture appreciated on bone level images. Impression: No acute intracranial findings. Brain parenchymal volume loss and probable small vessel ischemic disease. Electronically signed by: Joseph Liriano MD (03/01/2017 7:04 PM) [facility]
--- NOTE | 2017-03-01 19:16 | RAD ---
Indication: Short of air. Surgery for hip dislocation yesterday. Technique: Axial images and coronal and sagittal maximum intensity projection reformatted images are provided. 75 mL of intravenous Omnipaque 300 was administered without complication. Comparison is from January 25, 2016. One or more of the following individualized dose reduction techniques were utilized for this examination: 1. Automated exposure control 2. Adjustment of the mA and/or kV according to patient size 3. Use of iterative reconstruction technique Findings: There is no central filling defect to suggest pulmonary embolism. Mixing artifact limits evaluation for a small peripheral embolus. Pulmonary arteries are dilated, right main pulmonary artery diameter is 3.3 cm. There is atheromatous disease in the thoracic aorta. There are coronary artery calcifications. There is no hilar or mediastinal adenopathy. Central airways are patent. There is elevation of the right hemidiaphragm. There is basilar consolidation bilaterally with air bronchograms. There is a trace left pleural effusion. There is fatty replacement of the pancreas. Probable cyst in the right kidney measures 2.8 cm. Left renal calculi are noted. There are degenerative changes in the spine. IMPRESSION: 1. Negative for pulmonary embolism. 2. Dilated pulmonary artery can be a finding of pulmonary arterial hypertension. 3. Lower lobe consolidation with air bronchogram bilaterally, probably a combination of atelectasis and pneumonia. Electronically signed by: Joseph Liriano MD (03/01/2017 7:12 PM) [facility]
[2017-03-01] MEDS: ATORVASTATIN CALCIUM 10 MG TABLET. PO SCH (21:04)
[2017-03-01] MEDS: ALBUTEROL SULFATE 2.5 MG/3 ML NEBU. NEB SCH (21:15)
[2017-03-01 23:20] VITALS: BP 107/56
[2017-03-02 03:15] VITALS: BP 122/59
[2017-03-02 04:46] LABS: BASO # 0.1 x10^3/uL (0.0-0.2); BASO % 1 % (0-3); EOS % 4 % (0-3); HEMOGLOBIN 12.3 g/dL (12.0-15.5); LYMPH # 2.4 x10^3/uL (1.0-4.8); LYMPH % 23 % (24-48); MEAN CORPUSCULAR HEMOGLOBIN 25 pg (25-35); MEAN CORPUSCULAR HGB CONC 32 g/dL (31-37); MEAN CORPUSCULAR VOLUME 80 fL (79-100); MONO % 10 % (0-9); NEUT % 62 % (31-73); PLATELET COUNT 316 x10^3/uL (140-400); RED BLOOD COUNT 4.86 x10^6/uL (3.50-5.40); RED CELL DISTRIBUTION WIDTH 21.6 % (11.5-14.5); WHITE BLOOD COUNT 10.6 x10^3/uL (4.0-11.0)
[2017-03-02 04:55] LABS: CREATININE 0.6 mg/dL (0.6-1.0); GFR 99.7; POTASSIUM 3.2 mmol/L (3.5-5.1)
[2017-03-02] MEDS: oxyCODONE/APAP 10/325 1 TAB TABLET PO PRN (06:12)
[2017-03-02 07:00] VITALS: BP 113/51
[2017-03-02] MEDS: amLODIPine BESYLATE 10 MG TABLET PO SCH (09:00)
[2017-03-02] MEDS: DOXYCYCLINE HYCLATE 100 MG TABLET PO SCH ×2 (09:00→21:34)
[2017-03-02] MEDS: PYRIDOSTIGMINE BROMIDE 60 MG TABLET PO SCH ×4 (09:00→21:34)
[2017-03-02] MEDS: buPROPion XL 150 MG TAB.ER.24H. PO SCH (09:01)
[2017-03-02] MEDS: GABAPENTIN 300 MG CAPSULE. PO SCH ×3 (09:01→21:34)
[2017-03-02] MEDS: DULoxetine HCL 30 MG CAPSULE.DR PO SCH (09:02)
[2017-03-02] MEDS: LOSARTAN POTASSIUM 50 MG TABLET. PO SCH (09:02)
[2017-03-02] MEDS: oxyCODONE/APAP 5/325 1 TAB TABLET PO PRN ×2 (09:56→14:35)
[2017-03-02 11:00] VITALS: BP 120/56
--- NOTE | 2017-03-02 11:26 | PDOC ---
ORTHO PROGRESS NOTES Subjective Patient is doing well. She has been out of bed and up with PT. There was some bleeding yesterday from the incision but that has stopped. Pain controlled Post-op Day: 2 (Reduction of left hip dislocation) Vitals Vital Signs Date Time Temp Pulse Resp B/P (MAP) Pulse Ox O2 Delivery O2 Flow Rate FiO2 03/02/17 09:56 96 Nasal Cannula 2.0 03/02/17 09:02 75 122/59 03/02/17 07:00 97.5 18 97.5 Labs Laboratory Tests Test 03/01/17 03:55 03/01/17 14:20 03/02/17 03:40 White Blood Count 9.6 x10^3/uL (4.0-11.0) 10.6 x10^3/uL (4.0-11.0) Red Blood Count 5.44 x10^6/uL (3.50-5.40) 4.86 x10^6/uL (3.50-5.40) Hemoglobin 13.9 g/dL (12.0-15.5) 12.3 g/dL (12.0-15.5) Hematocrit 42.8 % (36.0-47.0) 39.0 % (36.0-47.0) Mean Corpuscular Volume 79 fL (79-100) 80 fL (79-100) Mean Corpuscular Hemoglobin 26 pg (25-35) 25 pg (25-35) Mean Corpuscular Hemoglobin Concent 33 g/dL (31-37) 32 g/dL (31-37) Red Cell Distribution Width 21.2 % (11.5-14.5) 21.6 % (11.5-14.5) Platelet Count 369 x10^3/uL (140-400) 316 x10^3/uL (140-400) Neutrophils (%) (Auto) 73 % (31-73) 62 % (31-73) Lymphocytes (%) (Auto) 19 % (24-48) 23 % (24-48) Monocytes (%) (Auto) 8 % (0-9) 10 % (0-9) Eosinophils (%) (Auto) 0 % (0-3) 4 % (0-3) Basophils (%) (Auto) 1 % (0-3) 1 % (0-3) Neutrophils # (Auto) 7.1 x10^3uL (1.8-7.7) 6.6 x10^3uL (1.8-7.7) Lymphocytes # (Auto) 1.8 x10^3/uL (1.0-4.8) 2.4 x10^3/uL (1.0-4.8) Monocytes # (Auto) 0.7 x10^3/uL (0.0-1.1) 1.1 x10^3/uL (0.0-1.1) Eosinophils # (Auto) 0.0 x10^3/uL (0.0-0.7) 0.4 x10^3/uL (0.0-0.7) Basophils # (Auto) 0.0 x10^3/uL (0.0-0.2) 0.1 x10^3/uL (0.0-0.2) Sodium Level 144 mmol/L (136-145) 144 mmol/L (136-145) Potassium Level 3.5 mmol/L (3.5-5.1) 3.2 mmol/L (3.5-5.1) Chloride Level 104 mmol/L (98-107) 105 mmol/L (98-107) Carbon Dioxide Level 34 mmol/L (21-32) 36 mmol/L (21-32) Anion Gap 6 (6-14) 3 (6-14) Blood Urea Nitrogen 14 mg/dL (7-20) 15 mg/dL (7-20) Creatinine 0.5 mg/dL (0.6-1.0) 0.6 mg/dL (0.6-1.0) Estimated GFR (Cockcroft-Gault) 123.1 99.7 Glucose Level 115 mg/dL (70-99) 85 mg/dL (70-99) Calcium Level 9.9 mg/dL (8.5-10.1) 10.0 mg/dL (8.5-10.1) Glucose (Fingerstick) 106 mg/dL (70-99) Laboratory Tests Test 03/01/17 14:20 03/02/17 03:40 Glucose (Fingerstick) 106 mg/dL (70-99) White Blood Count 10.6 x10^3/uL (4.0-11.0) Red Blood Count 4.86 x10^6/uL (3.50-5.40) Hemoglobin 12.3 g/dL (12.0-15.5) Hematocrit 39.0 % (36.0-47.0) Mean Corpuscular Volume 80 fL (79-100) Mean Corpuscular Hemoglobin 25 pg (25-35) Mean Corpuscular Hemoglobin Concent 32 g/dL (31-37) Red Cell Distribution Width 21.6 % (11.5-14.5) Platelet Count 316 x10^3/uL (140-400) Neutrophils (%) (Auto) 62 % (31-73) Lymphocytes (%) (Auto) 23 % (24-48) Monocytes (%) (Auto) 10 % (0-9) Eosinophils (%) (Auto) 4 % (0-3) Basophils (%) (Auto) 1 % (0-3) Neutrophils # (Auto) 6.6 x10^3uL (1.8-7.7) Lymphocytes # (Auto) 2.4 x10^3/uL (1.0-4.8) Monocytes # (Auto) 1.1 x10^3/uL (0.0-1.1) Eosinophils # (Auto) 0.4 x10^3/uL (0.0-0.7) Basophils # (Auto) 0.1 x10^3/uL (0.0-0.2) Sodium Level 144 mmol/L (136-145) Potassium Level 3.2 mmol/L (3.5-5.1) Chloride Level 105 mmol/L (98-107) Carbon Dioxide Level 36 mmol/L (21-32) Anion Gap 3 (6-14) Blood Urea Nitrogen 15 mg/dL (7-20) Creatinine 0.6 mg/dL (0.6-1.0) Estimated GFR (Cockcroft-Gault) 99.7 Glucose Level 85 mg/dL (70-99) Calcium Level 10.0 mg/dL (8.5-10.1) Notes Patient is awake and alert sitting up in bed. Breathing unlabored, no acute distress. Neurovascular intact left lower extremity. Incision is covered with dressing, dressing is intact without drainage. Moderate localized edema left hip Problems: (1) Hip dislocation, left Assessment and Plan Continue PT OT Continue to monitor her incision but I think that has resolved Problem Qualifiers (1) Hip dislocation, left: Encounter type: initial encounter Qualified Codes: S73.005A - Unspecified dislocation of left hip, initial encounter PAMELA MCPHERSON CAMERA OPERATOR Mar 02, 2017 11:26
--- NOTE | 2017-03-02 12:37 | PDOC ---
PROGRESS NOTES Assessment Assessment MG Left superior and medial dislocation of femoral prothesis. Left hip pain. Pneumonia likely. Vit B12 deficiency. HTN HLD Falls ZENON Obesity. RECOMMENDATIONS/PLAN: Continue Mestinon, 60 mg qid fine. Ortho treatment. Treat medical diseases. 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 No symptoms of respiratory failure, but she felt easily got tired at home. 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 She stated she hurt her left hip but no fall on 02/27 which resulted significant pain in hie left hip to come to the [facility] and evaluation found hip dislocation. She had acute mental status changes and face redness in the afternoon of 03-01. Stat HCT and chest CT with PE protocol were performed which were negative. Past Medical History Cardiovascular: CAD, Other Pulmonary: Asthma CENTRAL NERVOUS SYSTEM: Periperal neuropathy Endocrine: Diabetes Past Surgical History Appendectomy, Arthroscopy, Total hip replacement, Hysterectomy, Other Family History Hypertension Social History Smoke: No ALCOHOL: none Drugs: None ALLERGY: Reviewed. MEDICATIONS: Refer to MAR REVIEW OF SYSTEMS: Constitutional: No malnutrition, weight loss, cachexia. Head: No traumatic brain or head injury. Skin: No edema, or rash. Ear: No infection. Eyes: No vision loss or color blindness. Nose: No bleeding or purulent discharges. Hearing: Hearing decrease. Neck: No injury. Breast: No history of cancer, masses,or discharges. Cardiac: HTN, HLD. Pulmonary: ZENON GI: No GI ulcer, GI bleeding. Urinary/genital: UTI. Endocrinologic: Obesity. Skeletomuscular: Falls.. Neurological: see HP. Psychiatric: Denies drug use/abuse. Otherwise, not [id number] review of systems. PHYSICAL EXAMINATION: General appearance is in subacute distress. HEENT: Normocephalic and nontraumatic. Eyes, nose, ears, and throat are unremarkable. Neck is supple. No lymphadenopathy. No bruits are heard over the carotid artery. No crepitus. Cardiovascular: S1, S2, regular rate and rhythm. Pulmonary: Clear to auscultation bilaterally. Abdomen: Bowel sounds are positive. Abdomen is soft, nontender, and nondistended. Extremities: No rash, lesions, or edema. No restriction of range of motion NEUROLOGICAL EXAMINATION: Alert Sitting in chair. Oriented to time, place and person. PERRL. EOMI. CN: no focal findings. Muscle tone: within normal. Muscle strength: 5- UE, 4 right LE. Pain in left LE unable to access accurately. DTR: 2- Plantar reflex: Flexor response bilaterally Gait: not examined in bed. Sensory exam: no abnormal findings. No cerebellar signs elicited. F-T-N test fine. Objective Objective Vital Signs Date Time Temp Pulse Resp B/P (MAP) Pulse Ox O2 Delivery O2 Flow Rate FiO2 03/02/17 11:00 97.5 78 18 120/56 (77) 96 Nasal Cannula 3.0 97.5 Intake and Output 03/03/17 07:00 Intake Total 120 ml Balance 120 ml Intake Oral 120 ml Vitals Signs Vitals VS - Last 72 Hours, by Label Date Time Temp Pulse Resp B/P (MAP) Pulse Ox O2 Delivery O2 Flow Rate FiO2 03/02/17 11:00 97.5 78 18 120/56 (77) 96 Nasal Cannula 3.0 97.5 03/02/17 09:56 96 Nasal Cannula 2.0 03/02/17 09:02 75 122/59 03/02/17 09:00 75 122/59 03/02/17 08:12 96 Nasal Cannula 2.0 03/02/17 07:55 Nasal Cannula 2.0 03/02/17 07:00 97.5 74 18 113/51 (71) 96 BiPAP/CPAP 97.5 03/02/17 06:12 20 98 Nasal Cannula 2.0 03/02/17 03:15 97.9 75 18 122/59 (80) 98 BiPAP/CPAP 97.9 03/01/17 23:20 97.6 76 17 107/56 (73) 99 BiPAP/CPAP 97.6 03/01/17 21:18 Nasal Cannula 2.0 03/01/17 19:30 Nasal Cannula 2.0 03/01/17 19:00 98.5 90 16 123/63 (83) 94 Nasal Cannula 3.0 98.5 03/01/17 15:02 97.5 76 16 98/52 (67) 95 Nasal Cannula 3.0 97.5 03/01/17 12:49 98 Nasal Cannula 03/01/17 11:25 95.9 83 16 113/54 (73) 98 Nasal Cannula 3.0 95.9 9/27/17 09:40 93 Nasal Cannula 3.0 03/01/17 08:49 93 Nasal Cannula 3.0 03/01/17 08:48 80 112/58 03/01/17 08:47 80 112/58 03/01/17 08:00 Nasal Cannula 03/01/17 07:00 97.7 80 16 112/58 (76) 93 Nasal Cannula 3.0 97.7 Laboratory Laboratory Laboratory Tests Test 03/01/17 14:20 03/02/17 03:40 Glucose (Fingerstick) 106 mg/dL (70-99) White Blood Count 10.6 x10^3/uL (4.0-11.0) Red Blood Count 4.86 x10^6/uL (3.50-5.40) Hemoglobin 12.3 g/dL (12.0-15.5) Hematocrit 39.0 % (36.0-47.0) Mean Corpuscular Volume 80 fL (79-100) Mean Corpuscular Hemoglobin 25 pg (25-35) Mean Corpuscular Hemoglobin Concent 32 g/dL (31-37) Red Cell Distribution Width 21.6 % (11.5-14.5) Platelet Count 316 x10^3/uL (140-400) Neutrophils (%) (Auto) 62 % (31-73) Lymphocytes (%) (Auto) 23 % (24-48) Monocytes (%) (Auto) 10 % (0-9) Eosinophils (%) (Auto) 4 % (0-3) Basophils (%) (Auto) 1 % (0-3) Neutrophils # (Auto) 6.6 x10^3uL (1.8-7.7) Lymphocytes # (Auto) 2.4 x10^3/uL (1.0-4.8) Monocytes # (Auto) 1.1 x10^3/uL (0.0-1.1) Eosinophils # (Auto) 0.4 x10^3/uL (0.0-0.7) Basophils # (Auto) 0.1 x10^3/uL (0.0-0.2) Sodium Level 144 mmol/L (136-145) Potassium Level 3.2 mmol/L (3.5-5.1) Chloride Level 105 mmol/L (98-107) Carbon Dioxide Level 36 mmol/L (21-32) Anion Gap 3 (6-14) Blood Urea Nitrogen 15 mg/dL (7-20) Creatinine 0.6 mg/dL (0.6-1.0) Estimated GFR (Cockcroft-Gault) 99.7 Glucose Level 85 mg/dL (70-99) Calcium Level 10.0 mg/dL (8.5-10.1) Medication Medications Current Medications Albuterol Sulfate (Ventolin Neb Soln) 2.5 mg RTQID NEB Last administered on 21:15; Start 03/01/17 at 21:00 Iohexol (Omnipaque 300 Mg/ml) 75 ml 1X ONCE IV Last administered on 03/01/17 17:45; Start 03/01/17 at 17:45; Stop 03/01/17 at 17:46; Status DC Comment Review of Relevant I have reviewed the following items antonio (where applicable) has been applied. ELEANOR KENNEY MD Mar 02, 2017 12:37
--- NOTE | 2017-03-02 13:57 | PDOC ---
PROGRESS NOTES Chief Complaint Chief Complaint L hip dislocation ASSESSMENT AND PLAN: 1. Hip dislocation: s/p surgical fixation on 02/28. recovering appropriately 2. Pain control: adequate on current PO/IV regimen 3. ?MG: on mestinon [address] Hussein following 4. L leg weakness: s/p multiple left hip and knee surgeries. 5. Chronic back pain: hx injections with good results 6. Chronic (R) shoulder pain: s/p L shoulder replacement; not eager for rpt surgery 7. CAD/HTN/HLD: no acute issues. continue home meds 8. ZENON: on CPAP 9. peripheral neuropathy: on gabapentin 10. B12 deficiency: on oral repletion 11. Anemia: iron deficiency; replete orally 12. Asthma: no acute issues. cont nebs 13. Morbid obesity (BMI 39): nutrition consult 14. Depression: stable mood; cont home meds 15. 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 Prophylaxis: lovenox 17. Dispo: OT/PT eval for acute rehab History of Present Illness History of Present Illness better today. decreased doses of narcotics, after event last PM with breathing issues, confusion; CT head and chest benign. Vitals Vitals Vital Signs Date Time Temp Pulse Resp B/P (MAP) Pulse Ox O2 Delivery O2 Flow Rate FiO2 03/02/17 11:00 97.5 78 18 120/56 (77) 96 Nasal Cannula 3.0 97.5 Physical Exam General: Alert, Oriented X3, Cooperative, No acute distress Heart: Regular rate Lungs: Clear Abdomen: Normal bowel sounds, No tenderness Extremities: No edema, Other (L hip incison covered with clean bandage) Labs LABS Laboratory Tests Test 03/01/17 14:20 03/02/17 03:40 Glucose (Fingerstick) 106 mg/dL (70-99) White Blood Count 10.6 x10^3/uL (4.0-11.0) Red Blood Count 4.86 x10^6/uL (3.50-5.40) Hemoglobin 12.3 g/dL (12.0-15.5) Hematocrit 39.0 % (36.0-47.0) Mean Corpuscular Volume 80 fL (79-100) Mean Corpuscular Hemoglobin 25 pg (25-35) Mean Corpuscular Hemoglobin Concent 32 g/dL (31-37) Red Cell Distribution Width 21.6 % (11.5-14.5) Platelet Count 316 x10^3/uL (140-400) Neutrophils (%) (Auto) 62 % (31-73) Lymphocytes (%) (Auto) 23 % (24-48) Monocytes (%) (Auto) 10 % (0-9) Eosinophils (%) (Auto) 4 % (0-3) Basophils (%) (Auto) 1 % (0-3) Neutrophils # (Auto) 6.6 x10^3uL (1.8-7.7) Lymphocytes # (Auto) 2.4 x10^3/uL (1.0-4.8) Monocytes # (Auto) 1.1 x10^3/uL (0.0-1.1) Eosinophils # (Auto) 0.4 x10^3/uL (0.0-0.7) Basophils # (Auto) 0.1 x10^3/uL (0.0-0.2) Sodium Level 144 mmol/L (136-145) Potassium Level 3.2 mmol/L (3.5-5.1) Chloride Level 105 mmol/L (98-107) Carbon Dioxide Level 36 mmol/L (21-32) Anion Gap 3 (6-14) Blood Urea Nitrogen 15 mg/dL (7-20) Creatinine 0.6 mg/dL (0.6-1.0) Estimated GFR (Cockcroft-Gault) 99.7 Glucose Level 85 mg/dL (70-99) Calcium Level 10.0 mg/dL (8.5-10.1) CLARY MENDOZA MD Mar 02, 2017 13:57
[2017-03-02 15:00] VITALS: BP 105/52
[2017-03-02 19:30] VITALS: BP 113/52
[2017-03-02] MEDS: ALBUTEROL SULFATE 2.5 MG/3 ML NEBU. NEB SCH (19:48)
[2017-03-02] MEDS: ATORVASTATIN CALCIUM 10 MG TABLET. PO SCH (21:34)
[2017-03-02 23:20] VITALS: BP 117/64
[2017-03-03] MEDS: oxyCODONE/APAP 5/325 1 TAB TABLET PO PRN ×2 (00:34→08:50)
[2017-03-03 03:31] VITALS: BP 118/66
[2017-03-03 07:00] VITALS: BP 137/68
[2017-03-03] MEDS: ALBUTEROL SULFATE 2.5 MG/3 ML NEBU. NEB SCH ×4 (08:24→20:31)
[2017-03-03] MEDS: DOXYCYCLINE HYCLATE 100 MG TABLET PO SCH ×2 (08:49→21:20)
[2017-03-03] MEDS: LOSARTAN POTASSIUM 50 MG TABLET. PO SCH (08:49)
[2017-03-03] MEDS: PYRIDOSTIGMINE BROMIDE 60 MG TABLET PO SCH ×4 (08:49→21:20)
[2017-03-03] MEDS: DULoxetine HCL 30 MG CAPSULE.DR PO SCH (08:50)
[2017-03-03] MEDS: buPROPion XL 150 MG TAB.ER.24H. PO SCH (08:50)
[2017-03-03] MEDS: GABAPENTIN 300 MG CAPSULE. PO SCH ×3 (08:50→21:20)
[2017-03-03] MEDS: amLODIPine BESYLATE 10 MG TABLET PO SCH (08:50)
[2017-03-03 11:00] VITALS: BP 118/64
--- NOTE | 2017-03-03 13:55 | PDOC ---
PROGRESS NOTES Chief Complaint Chief Complaint L hip dislocation ASSESSMENT AND PLAN: 1. Hip dislocation: s/p surgical fixation on 02/28. still copious drainage from surgical incision. Dr Henriquez following; may need drain placement 2. Pain control: adequate on current PO/IV regimen 3. ?MG: on mestinon [address] Hussein following 4. L leg weakness: s/p multiple left hip and knee surgeries. 5. Chronic back pain: hx injections with good results 6. Chronic (R) shoulder pain: s/p L shoulder replacement; not eager for rpt surgery 7. CAD/HTN/HLD: no acute issues. continue home meds 8. ZENON: on CPAP 9. peripheral neuropathy: on gabapentin 10. B12 deficiency: on oral repletion 11. Anemia: iron deficiency; replete orally 12. Asthma: no acute issues. cont nebs 13. Morbid obesity (BMI 39): nutrition consult 14. Depression: stable mood; cont home meds 15. 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 Prophylaxis: lovenox 17. Dispo: OT/PT eval for acute rehab when wound issues resolved 18. Hypokalemia: replete. monitor History of Present Illness History of Present Illness doing ok, sitting in chair. pain fairly well controlled Vitals Vitals Vital Signs Date Time Temp Pulse Resp B/P (MAP) Pulse Ox O2 Delivery O2 Flow Rate FiO2 03/03/17 12:09 95 Nasal Cannula 2.0 03/03/17 11:00 98.1 78 18 118/64 (82) 98.1 Physical Exam General: Alert, Oriented X3, Cooperative, No acute distress Heart: Regular rate Lungs: Clear Abdomen: Normal bowel sounds, No tenderness Extremities: No edema, Other (L hip incison covered with clean bandage) CLARY MENDOZA MD Mar 03, 2017 13:55
--- NOTE | 2017-03-03 14:06 | PDOC ---
PROGRESS NOTES Assessment Assessment MG Left superior and medial dislocation of femoral prothesis. Left hip pain. Pneumonia likely. Vit B12 deficiency. HTN HLD Falls ZENON Obesity. RECOMMENDATIONS/PLAN: Continue Mestinon, 60 mg qid fine. Ortho treatment. Treat medical diseases. OT/PT. 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 No symptoms of respiratory failure, but she felt easily got tired at home. 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 She stated she hurt her left hip but no fall on 02/27 which resulted significant pain in hie left hip to come to the [facility] and evaluation found hip dislocation. She had acute mental status changes and face redness in the afternoon of 03-01. Stat HCT and chest CT with PE protocol were performed which were negative. She is doing better on 03/03/17. Past Medical History Cardiovascular: CAD, Other Pulmonary: Asthma CENTRAL NERVOUS SYSTEM: Periperal neuropathy Endocrine: Diabetes Past Surgical History Appendectomy, Arthroscopy, Total hip replacement, Hysterectomy, Other Family History Hypertension Social History Smoke: No ALCOHOL: none Drugs: None ALLERGY: Reviewed. MEDICATIONS: Refer to MAR REVIEW OF SYSTEMS: Constitutional: No malnutrition, weight loss, cachexia. Head: No traumatic brain or head injury. Skin: No edema, or rash. Ear: No infection. Eyes: No vision loss or color blindness. Nose: No bleeding or purulent discharges. Hearing: Hearing decrease. Neck: No injury. Breast: No history of cancer, masses,or discharges. Cardiac: HTN, HLD. Pulmonary: ZENON GI: No GI ulcer, GI bleeding. Urinary/genital: UTI. Endocrinologic: Obesity. Skeletomuscular: Falls.. Neurological: see HP. Psychiatric: Denies drug use/abuse. Otherwise, not [id number] review of systems. PHYSICAL EXAMINATION: General appearance is in subacute distress. HEENT: Normocephalic and nontraumatic. Eyes, nose, ears, and throat are unremarkable. Neck is supple. No lymphadenopathy. No bruits are heard over the carotid artery. No crepitus. Cardiovascular: S1, S2, regular rate and rhythm. Pulmonary: Clear to auscultation bilaterally. Abdomen: Bowel sounds are positive. Abdomen is soft, nontender, and nondistended. Extremities: No rash, lesions, or edema. No restriction of range of motion NEUROLOGICAL EXAMINATION: Alert Sitting in chair. Oriented to time, place and person. PERRL. EOMI. CN: no focal findings. Muscle tone: within normal. Muscle strength: 5- UE, 4 right LE. 4- left LE. DTR: 2 UE, 1+ knee. Plantar reflex: Flexor response bilaterally Gait: not examined in bed. Sensory exam: no abnormal findings. No cerebellar signs elicited. F-T-N test fine. Objective Objective Vital Signs Date Time Temp Pulse Resp B/P (MAP) Pulse Ox O2 Delivery O2 Flow Rate FiO2 03/03/17 12:09 95 Nasal Cannula 2.0 03/03/17 11:00 98.1 78 18 118/64 (82) 98.1 Vitals Signs Vitals VS - Last 72 Hours, by Label Date Time Temp Pulse Resp B/P (MAP) Pulse Ox O2 Delivery O2 Flow Rate FiO2 03/03/17 12:09 95 Nasal Cannula 2.0 03/03/17 11:00 98.1 78 18 118/64 (82) 97 98.1 03/03/17 11:00 Nasal Cannula 03/03/17 08:50 84 137/68 03/03/17 08:50 Nasal Cannula 03/03/17 08:49 84 137/68 03/03/17 08:28 89 Nasal Cannula 2.0 03/03/17 07:40 Nasal Cannula 2.0 03/03/17 07:00 97.5 84 18 137/68 (91) 94 Room Air 97.5 03/03/17 03:31 98.0 82 18 118/66 (83) 96 BiPAP/CPAP 98.0 03/03/17 01:34 20 03/03/17 00:34 20 BiPAP/CPAP 03/02/17 23:20 97.9 79 18 117/64 (81) 92 Room Air 97.9 03/02/17 19:52 93 03/02/17 19:30 98.0 76 18 113/52 (72) 93 Room Air 98.0 03/02/17 19:30 Nasal Cannula 2.0 03/02/17 15:58 96 3.0 03/02/17 15:00 97.5 76 18 105/52 (69) 92 Nasal Cannula 3.0 97.5 03/02/17 14:35 96 Nasal Cannula 3.0 03/02/17 11:00 97.5 78 18 120/56 (77) 96 Nasal Cannula 3.0 97.5 03/02/17 09:56 96 Nasal Cannula 2.0 03/02/17 09:02 75 122/59 03/02/17 09:00 75 122/59 03/02/17 08:12 96 Nasal Cannula 2.0 03/02/17 07:55 Nasal Cannula 2.0 03/02/17 07:00 97.5 74 18 113/51 (71) 96 BiPAP/CPAP 97.5 Medication Medications Current Medications Potassium Chloride (Klor-Con) 40 meq 1X ONCE PO ; Start 03/03/17 at 17:00; Stop 03/03/17 at 17:01 Comment Review of Relevant I have reviewed the following items antonio (where applicable) has been applied. ELEANOR KENNEY MD Mar 03, 2017 14:06
[2017-03-03 14:55] VITALS: BP 111/56
[2017-03-03] MEDS ORDERED: POTASSIUM CHLORIDE 20 MEQ TABLET.ER. PO ONE (17:00)
[2017-03-03 19:00] VITALS: BP 108/64
[2017-03-03] MEDS: ATORVASTATIN CALCIUM 10 MG TABLET. PO SCH (21:19)
[2017-03-03] MEDS: HYDROcodone/APAP 7.5/325MG 1 TAB TABLET PO PRN (21:24)
[2017-03-03 23:23] VITALS: BP 124/61
[2017-03-04 03:00] VITALS: BP 126/61
[2017-03-04 05:22] LABS: CALCIUM 9.7 mg/dL (8.5-10.1); CREATININE 0.6 mg/dL (0.6-1.0); GFR 99.7; MAGNESIUM 1.8 mg/dL (1.8-2.4); POTASSIUM 3.7 mmol/L (3.5-5.1)
[2017-03-04] MEDS: ALBUTEROL SULFATE 2.5 MG/3 ML NEBU. NEB SCH ×4 (06:56→19:17)
[2017-03-04 07:00] VITALS: BP 135/66
[2017-03-04] MEDS: amLODIPine BESYLATE 10 MG TABLET PO SCH (08:55)
[2017-03-04] MEDS: buPROPion XL 150 MG TAB.ER.24H. PO SCH (08:55)
[2017-03-04] MEDS: LOSARTAN POTASSIUM 50 MG TABLET. PO SCH (08:55)
[2017-03-04] MEDS: DULoxetine HCL 30 MG CAPSULE.DR PO SCH (08:55)
[2017-03-04] MEDS: GABAPENTIN 300 MG CAPSULE. PO SCH ×3 (08:55→21:10)
[2017-03-04] MEDS: PYRIDOSTIGMINE BROMIDE 60 MG TABLET PO SCH ×4 (08:55→21:10)
[2017-03-04] MEDS: DOXYCYCLINE HYCLATE 100 MG TABLET PO SCH ×2 (08:55→21:10)
[2017-03-04 11:00] VITALS: BP 118/60
[2017-03-04] MEDS ORDERED: CYANOCOBALAMIN (VITAMIN B-12) 1,000 MCG/ML VIAL IM STA (13:26)
--- NOTE | 2017-03-04 13:30 | PDOC ---
PROGRESS NOTES Chief Complaint Chief Complaint L hip dislocation ASSESSMENT AND PLAN: 1. Hip dislocation: s/p surgical fixation on 02/28. still copious drainage from surgical incision. Dr Henriquez following; may need drain placement 2. Pain control: adequate on current PO/IV regimen 3. ?MG: on mestinon [address] Hussein following 4. L leg weakness: s/p multiple left hip and knee surgeries. 5. Chronic back pain: hx injections with good results 6. Chronic (R) shoulder pain: s/p L shoulder replacement; not eager for rpt surgery 7. CAD/HTN/HLD: no acute issues. continue home meds 8. ZENON: on CPAP 9. peripheral neuropathy: on gabapentin 10. B12 deficiency: on oral repletion 11. Anemia: iron deficiency; replete orally 12. Asthma: no acute issues. cont nebs 13. Morbid obesity (BMI 39): nutrition consult 14. Depression: stable mood; cont home meds 15. 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 Prophylaxis: lovenox 17. Dispo: OT/PT eval for acute rehab when wound issues resolved 18. Hypokalemia: replete. monitor History of Present Illness History of Present Illness SOme left hip oozing wound yesterday - dressing dry today HGb not low Supposed to get b12 shots qSat Looking at [facility] PLAN: COnt PT/PT B12 1000 IM shot qsat now SW on monday to follow [facility] with [facility] Vitals Vitals Vital Signs Date Time Temp Pulse Resp B/P (MAP) Pulse Ox O2 Delivery O2 Flow Rate FiO2 03/04/17 11:00 97.9 68 18 118/60 (79) 97 Room Air 97.9 03/04/17 07:30 2.0 Physical Exam General: Alert, Oriented X3, Cooperative, No acute distress Heart: Regular rate Lungs: Clear Abdomen: Normal bowel sounds, No tenderness Extremities: No edema, Other (L hip incison covered with clean bandage) Labs LABS Laboratory Tests Test 03/04/17 04:35 Sodium Level 142 mmol/L (136-145) Potassium Level 3.7 mmol/L (3.5-5.1) Chloride Level 104 mmol/L (98-107) Carbon Dioxide Level 36 mmol/L (21-32) Anion Gap 2 (6-14) Blood Urea Nitrogen 20 mg/dL (7-20) Creatinine 0.6 mg/dL (0.6-1.0) Estimated GFR (Cockcroft-Gault) 99.7 Glucose Level 85 mg/dL (70-99) Calcium Level 9.7 mg/dL (8.5-10.1) Magnesium Level 1.8 mg/dL (1.8-2.4) Review of Systems Review of Systems denies 14 pt Assessment and Plan Assessmemt and Plan Problems Medical Problems: (1) Hip dislocation, left Status: Acute Problems: Comment Review of Relevant I have reviewed the following items antonio (where applicable) has been applied. Labs Laboratory Tests Test 03/04/17 04:35 Sodium Level 142 mmol/L (136-145) Potassium Level 3.7 mmol/L (3.5-5.1) Chloride Level 104 mmol/L (98-107) Carbon Dioxide Level 36 mmol/L (21-32) Anion Gap 2 (6-14) Blood Urea Nitrogen 20 mg/dL (7-20) Creatinine 0.6 mg/dL (0.6-1.0) Estimated GFR (Cockcroft-Gault) 99.7 Glucose Level 85 mg/dL (70-99) Calcium Level 9.7 mg/dL (8.5-10.1) Magnesium Level 1.8 mg/dL (1.8-2.4) Laboratory Tests Test 03/04/17 04:35 Sodium Level 142 mmol/L (136-145) Potassium Level 3.7 mmol/L (3.5-5.1) Chloride Level 104 mmol/L (98-107) Carbon Dioxide Level 36 mmol/L (21-32) Anion Gap 2 (6-14) Blood Urea Nitrogen 20 mg/dL (7-20) Creatinine 0.6 mg/dL (0.6-1.0) Estimated GFR (Cockcroft-Gault) 99.7 Glucose Level 85 mg/dL (70-99) Calcium Level 9.7 mg/dL (8.5-10.1) Magnesium Level 1.8 mg/dL (1.8-2.4) Medications Current Medications Fentanyl Citrate (Fentanyl 2ml Vial) 50 mcg 1X ONCE IV Last administered on t 22:15; Start 02/27/17 at 22:15; Stop 02/27/17 at 22:16; Status DC Ondansetron HCl (Zofran) 4 mg 1X ONCE IV Last administered on 02/27/17 22:15 ; Start 02/27/17 at 22:15; Stop 02/27/17 at 22:16; Status DC Sodium Chloride 1,000 ml @ 125 mls/hr 1X ONCE IV Last administered on 22:15; Start 02/27/17 at 22:15; Stop 02/28/17 at 06:14; Status DC Ondansetron HCl (Zofran) 4 mg PRN Q8HRS PRN IV NAUSEA/VOMITING Last administered on 02/28/17 09:12; Start 02/27/17 at 23:45; Stop 02/28/17 at 23:44 ; Status DC Fentanyl Citrate (Fentanyl 2ml Vial) 50 mcg PRN Q2HR PRN IV PAIN Last administered on 02/28/17 22:02; Start 02/27/17 at 23:45; Stop 02/28/17 at 23:44 ; Status DC Oxycodone/ Acetaminophen (Percocet 5/325) 1 tab PRN Q4HRS PRN PO MODERATE PAIN Last administered on 03/03/17 08:50; Start 02/28/17 at 04:00 Oxycodone/ Acetaminophen (Percocet 10/325) 1 tab PRN Q4HRS PRN PO SEVERE PAIN Last administered on 03/02/17 06:12; Start 02/28/17 at 04:00 Alprazolam (Xanax) 1 mg PRN TID PRN PO ANXIETY; Start 02/28/17 at 12:45 Amlodipine Besylate (Norvasc) 10 mg DAILY PO Last administered on 03/04/17 08: 55; Start 02/28/17 at 13:00 Atorvastatin Calcium (Lipitor) 10 mg QHS PO Last administered on 03/03/17 21: 19; Start 02/28/17 at 21:00 Daptomycin (Cubicin) 625 mg DAILY IV ; Start 03/01/17 at 09:00; Status UNV Acetaminophen/ Hydrocodone Bitart (Lortab 7.5/325) 1 tab PRN Q6HRS PRN PO MILD PAIN Last administered on 03/03/17 21:24; Start 02/28/17 at 12:45 Piperacillin Sod/ Tazobactam Sod (Zosyn) 3.375 gm Q6HRS IV ; Start 02/28/17 at 18:00; Status UNV Pyridostigmine [place] (Mestinon) 60 mg QID PO Last administered on 03/04/17 08:55; Start 02/28/17 at 13:00 Bupropion HCl (Wellbutrin Xl) 300 mg DAILY PO Last administered on 03/04/17 08 :55; Start 02/28/17 at 13:00 Duloxetine HCl (Cymbalta) 120 mg DAILY PO Last administered on 03/04/17 08:55 ; Start 02/28/17 at 13:00 Gabapentin (Neurontin) 300 mg TID PO Last administered on 03/04/17 08:55; Start 02/28/17 at 14:00 Losartan Potassium (Cozaar) 100 mg DAILY PO Last administered on 03/04/17 08: 55; Start 02/28/17 at 13:00 Doxycycline Hyclate (Vibra-Tab) 100 mg BID PO Last administered on 03/04/17 08 :55; Start 02/28/17 at 14:00 Ondansetron HCl (Zofran) 4 mg PRN Q6HRS PRN IV NAUSEA/VOMITING; Start 02/28/17 at 17:30; Stop 03/01/17 at 17:29; Status DC Fentanyl Citrate (Fentanyl 2ml Vial) 25 mcg PRN Q5MIN PRN IV MILD PAIN; Start 02/28/17 at 17:30; Stop 03/01/17 at 17:29; Status DC Fentanyl Citrate (Fentanyl 2ml Vial) 50 mcg PRN Q5MIN PRN IV MODERATE PAIN Last administered on 03/01/17 00:04; Start 02/28/17 at 17:30; Stop 03/01/17 at 17:29; Status DC Morphine Sulfate 1 mg PRN Q10MIN PRN IV SEVERE PAIN; Start 02/28/17 at 17:30; Stop 03/01/17 at 17:29; Status DC Ringer's Solution 1,000 ml @ 30 mls/hr Q24H IV Last administered on 03/01/17 06:01; Start 02/28/17 at 17:17; Stop 03/01/17 at 05:16; Status DC Lidocaine HCl (Xylocaine-Mpf 1% Vial) 2 ml 1X PRN PRN ID IV START; Start at 17:30; Stop 03/01/17 at 17:29; Status DC Hydromorphone HCl (Dilaudid) 0.5 mg PRN Q10MIN PRN IV SEV PAIN, Second choice; Start 02/28/17 at 17:30; Stop 03/01/17 at 17:29; Status DC Prochlorperazine Edisylate (Compazine) 5 mg PACU PRN PRN IV NAUSEA, MRX1; Start 02/28/17 at 17:30; Stop 03/01/17 at 17:29; Status DC Sevoflurane (Ultane) 60 ml STK-MED ONCE IH ; Start 02/28/17 at 17:21; Stop 02/28 at 17:22; Status DC Fentanyl Citrate (Fentanyl 2ml Vial) 100 mcg STK-MED ONCE .ROUTE ; Start at 17:22; Stop 02/28/17 at 17:23; Status DC Midazolam HCl (Versed) 2 mg STK-MED ONCE .ROUTE ; Start 02/28/17 at 17:22; Stop 02/28/17 at 17:23; Status DC Propofol 20 ml @ As Directed STK-MED ONCE IV ; Start 02/28/17 at 17:22; Stop at 17:23; Status DC Dexamethasone Sodium Phosphate (Decadron) 20 mg STK-MED ONCE .ROUTE ; Start at 17:23; Stop 02/28/17 at 17:24; Status DC Ondansetron HCl (Zofran) 4 mg STK-MED ONCE .ROUTE ; Start 02/28/17 at 17:23; Stop 02/28/17 at 17:24; Status DC Lidocaine HCl (Lidocaine Pf 2% Vial) 5 ml STK-MED ONCE .ROUTE ; Start 02/28/17 at 17:23; Stop 02/28/17 at 17:24; Status DC Clindamycin Phosphate 50 ml @ As Directed STK-MED ONCE IV ; Start 02/28/17 at 17 :35; Stop 02/28/17 at 17:36; Status DC Phenylephrine HCl 1 mg STK-MED ONCE IV ; Start 02/28/17 at 17:56; Stop 02/28/17 at 17:57; Status DC Clindamycin Phosphate 50 ml @ 100 mls/hr 1X ONCE IV Last administered on 02/28 17:58; Start 02/28/17 at 17:58; Stop 02/28/17 at 19:42; Status DC Clindamycin Phosphate 50 ml @ 100 mls/hr Q6H IV Last administered on 12:42; Start 03/01/17 at 00:00; Stop 03/01/17 at 12:29; Status DC Ondansetron HCl (Zofran) 4 mg PRN Q4HRS PRN IV NAUSEA/VOMITING 1ST CHOICE Last administered on 03/04/17 11:01; Start 02/28/17 at 20:30 Dextrose (Dextrose 50%-Water Syringe) 12.5 gm PRN Q15MIN PRN IV SEE COMMENTS; Start 02/28/17 at 20:30 Iohexol (Omnipaque 300 Mg/ml) 75 ml 1X ONCE IV Last administered on 03/01/17 17:45; Start 03/01/17 at 17:45; Stop 03/01/17 at 17:46; Status DC Albuterol Sulfate (Ventolin Neb Soln) 2.5 mg RTQID NEB Last administered on 10:58; Start 03/01/17 at 21:00 Potassium Chloride (Klor-Con) 40 meq 1X ONCE PO Last administered on 17:44; Start 03/03/17 at 17:00; Stop 03/03/17 at 17:01; Status DC Active Scripts Active Doxycycline Hyclate 100 Mg Tablet 100 Mg PO BID [Warfarin Sodium] 1 EACH Each 1 Each MC PRN DAILY PRN 30 Days Amlodipine Besylate 10 Mg Tablet 10 Mg PO DAILY Reported Mestinon (Pyridostigmine [place]) 60 Mg Tablet 60 Mg PO QID [EquateMultiVitLutein] 1 Tab PO DAILY [m] Cymbalta (Duloxetine Hcl) 60 Mg Capsule. 2 Cap PO DAILY Gabapentin 300 Mg Capsule 300 Mg PO TID Hydrocodone-Apap 7.5-325 (Hydrocodone Bit/Acetaminophen) 1 Each Tablet 1 Tab PO PRN Q6HRS PRN Xanax (Alprazolam) 0.5 Mg Tablet 1 Mg PO PRN TID PRN Vitamin D-3 (Cholecalciferol (Vitamin D3)) 2,000 Unit Tablet 1,000 Unit PO DAILY06 Atorvastatin Calcium 10 Mg Tablet 10 Mg PO DAILY Losartan Potassium 100 Mg Tablet 100 Mg PO DAILY Bupropion Xl (Bupropion Hcl) 300 Mg Tab.er.24h 300 Mg PO DAILY Vitals/I & O Vital Sign - Last 24 Hours 03/03/17 03/03/17 03/03/17 03/03/17 14:55 15:23 19:00 19:45 Temp 97.7 98.5 97.7 98.5 Pulse 81 78 Resp 18 20 B/P (MAP) 111/56 (74) 108/64 (79) Pulse Ox 90 99 O2 Delivery Nasal Cannula Nasal Cannula BiPAP/CPAP Nasal Cannula O2 Flow Rate 2.0 2.0 2.0 03/03/17 03/03/17 03/03/17 03/04/17 21:24 22:24 23:23 03:00 Temp 97.5 97.7 97.5 97.7 Pulse 74 63 Resp 20 20 18 18 B/P (MAP) 124/61 (82) 126/61 (82) Pulse Ox 95 98 O2 Delivery BiPAP/CPAP BiPAP/CPAP Nasal Cannula Nasal Cannula O2 Flow Rate 2.5 2.5 03/04/17 03/04/17 03/04/17 03/04/17 06:56 07:00 07:30 08:55 Temp 98.2 98.2 Pulse 68 68 Resp 22 B/P (MAP) 135/66 (89) 135/66 Pulse Ox 98 98 O2 Delivery BiPAP/CPAP Room Air Nasal Cannula O2 Flow Rate 2.0 2.0 03/04/17 03/04/17 03/04/17 08:55 10:59 11:00 Temp 97.9 97.9 Pulse 68 68 Resp 18 B/P (MAP) 135/66 118/60 (79) Pulse Ox 99 97 O2 Delivery Room Air Room Air Intake and Output 03/04/17 03/04/17 03/05/17 15:00 23:00 07:00 Intake Total 240 ml Balance 240 ml NAIN PAZ MD Mar 04, 2017 13:30
[2017-03-04 15:00] VITALS: BP 122/60
[2017-03-04 19:49] VITALS: BP 115/59
[2017-03-04] MEDS: ATORVASTATIN CALCIUM 10 MG TABLET. PO SCH (21:10)
[2017-03-04 23:15] VITALS: BP 116/61
[2017-03-05 03:17] VITALS: BP 114/66
[2017-03-05] MEDS: ALBUTEROL SULFATE 2.5 MG/3 ML NEBU. NEB SCH ×4 (06:53→20:06)
[2017-03-05 07:00] VITALS: BP 118/63
[2017-03-05] MEDS: buPROPion XL 150 MG TAB.ER.24H. PO SCH (08:57)
[2017-03-05] MEDS: DOXYCYCLINE HYCLATE 100 MG TABLET PO SCH ×2 (08:57→20:35)
[2017-03-05] MEDS: LOSARTAN POTASSIUM 50 MG TABLET. PO SCH (08:57)
[2017-03-05] MEDS: PYRIDOSTIGMINE BROMIDE 60 MG TABLET PO SCH ×4 (08:58→20:35)
[2017-03-05] MEDS: GABAPENTIN 300 MG CAPSULE. PO SCH ×3 (08:58→20:35)
[2017-03-05] MEDS: amLODIPine BESYLATE 10 MG TABLET PO SCH (08:58)
[2017-03-05] MEDS: DULoxetine HCL 30 MG CAPSULE.DR PO SCH (08:58)
--- NOTE | 2017-03-05 09:32 | PDOC ---
PROGRESS NOTES Subjective Subjective Problems overnight: Pain control getting up reasonably well with assist Objective Vital Signs Vital Signs Date Time Temp Pulse Resp B/P (MAP) Pulse Ox O2 Delivery O2 Flow Rate FiO2 03/05/17 08:58 75 118/63 03/05/17 07:30 Nasal Cannula 2.5 03/05/17 07:00 98.0 18 99 98.0 Physical Exam Some mild serosanguineous drainage proximal portion of incision Labs Laboratory Tests Test 03/04/17 04:35 Sodium Level 142 mmol/L (136-145) Potassium Level 3.7 mmol/L (3.5-5.1) Chloride Level 104 mmol/L (98-107) Carbon Dioxide Level 36 mmol/L (21-32) Anion Gap 2 (6-14) Blood Urea Nitrogen 20 mg/dL (7-20) Creatinine 0.6 mg/dL (0.6-1.0) Estimated GFR (Cockcroft-Gault) 99.7 Glucose Level 85 mg/dL (70-99) Calcium Level 9.7 mg/dL (8.5-10.1) Magnesium Level 1.8 mg/dL (1.8-2.4) Assessment Assessment POD# [], S/P [open reduction left hip dislocation] Problems: Plan Plan of Care Continue medical management Advance physical therapy weightbearing as tolerated no strict hip precautions due to constrained hip but should emphasize not going beyond a feeling of resistance Daily dressing changes may advance to adarsh dressing JAYLEEN SONG MD Mar 05, 2017 09:32
[2017-03-05 11:00] VITALS: BP 128/65
--- NOTE | 2017-03-05 13:23 | PDOC ---
PROGRESS NOTES Chief Complaint Chief Complaint L hip dislocation PMH: Pericarditis Anemia Obesity CAD HTN Hyperlipidemia ZENON Peripheral neuropathy History of Present Illness History of Present Illness Pt was laying in bed and conversant. She had on an oxygen mask that she removed. Pt mentioned getting a B12 shot yesterday because it has helped in the past with her hand weakness and pain. Discussed plan of care with nurse as well as with the pt. Head CT - negative Chest CTA - no PE Open reduction and internal fixation of the left hip Vitals Vitals Vital Signs Date Time Temp Pulse Resp B/P (MAP) Pulse Ox O2 Delivery O2 Flow Rate FiO2 03/05/17 11:00 97.5 68 18 128/65 (86) 97 Room Air 97.5 03/05/17 07:30 2.5 Physical Exam General: Alert, Oriented X3, Cooperative, No acute distress Heart: Regular rate, Normal S1, Normal S2, No murmurs Lungs: Clear Abdomen: Normal bowel sounds, No tenderness Extremities: No clubbing, No cyanosis, No edema, Other (L hip incison covered with clean bandage) Skin: No rashes, No breakdown, No significant lesion Review of Systems Review of Systems Pt complains of hand pain Pt complains of fatigue Pt complains of hunger Assessment and Plan Assessmemt and Plan Problems Medical Problems: (1) Hip dislocation, left Status: Acute L hip dislocation PMH: Pericarditis Anemia Obesity CAD HTN Hyperlipidemia ZENON Peripheral neuropathy Plan: Recheck labs will get Ca level cont. meds cont. fluids as necessary Appreciate subspecialty input PT/OT home meds Problems: Comment Review of Relevant I have reviewed the following items antonio (where applicable) has been applied. Labs Laboratory Tests Test 03/04/17 04:35 Sodium Level 142 mmol/L (136-145) Potassium Level 3.7 mmol/L (3.5-5.1) Chloride Level 104 mmol/L (98-107) Carbon Dioxide Level 36 mmol/L (21-32) Anion Gap 2 (6-14) Blood Urea Nitrogen 20 mg/dL (7-20) Creatinine 0.6 mg/dL (0.6-1.0) Estimated GFR (Cockcroft-Gault) 99.7 Glucose Level 85 mg/dL (70-99) Calcium Level 9.7 mg/dL (8.5-10.1) Magnesium Level 1.8 mg/dL (1.8-2.4) Medications Current Medications Fentanyl Citrate (Fentanyl 2ml Vial) 50 mcg 1X ONCE IV Last administered on 22:15; Start 02/27/17 at 22:15; Stop 02/27/17 at 22:16; Status DC Ondansetron HCl (Zofran) 4 mg 1X ONCE IV Last administered on 02/27/17 22:15 ; Start 02/27/17 at 22:15; Stop 02/27/17 at 22:16; Status DC Sodium Chloride 1,000 ml @ 125 mls/hr 1X ONCE IV Last administered on 22:15; Start 02/27/17 at 22:15; Stop 02/28/17 at 06:14; Status DC Ondansetron HCl (Zofran) 4 mg PRN Q8HRS PRN IV NAUSEA/VOMITING Last administered on 02/28/17 09:12; Start 02/27/17 at 23:45; Stop 02/28/17 at 23:44 ; Status DC Fentanyl Citrate (Fentanyl 2ml Vial) 50 mcg PRN Q2HR PRN IV PAIN Last administered on 02/28/17 22:02; Start 02/27/17 at 23:45; Stop 02/28/17 at 23:44 ; Status DC Oxycodone/ Acetaminophen (Percocet 5/325) 1 tab PRN Q4HRS PRN PO MODERATE PAIN Last administered on 03/03/17 08:50; Start 02/28/17 at 04:00 Oxycodone/ Acetaminophen (Percocet 10/325) 1 tab PRN Q4HRS PRN PO SEVERE PAIN Last administered on 03/02/17 06:12; Start 02/28/17 at 04:00 Alprazolam (Xanax) 1 mg PRN TID PRN PO ANXIETY; Start 02/28/17 at 12:45 Amlodipine Besylate (Norvasc) 10 mg DAILY PO Last administered on 03/05/17 08: 58; Start 02/28/17 at 13:00 Atorvastatin Calcium (Lipitor) 10 mg QHS PO Last administered on 03/04/17 21: 10; Start 02/28/17 at 21:00 Daptomycin (Cubicin) 625 mg DAILY IV ; Start 03/01/17 at 09:00; Status UNV Acetaminophen/ Hydrocodone Bitart (Lortab 7.5/325) 1 tab PRN Q6HRS PRN PO MILD PAIN Last administered on 03/03/17 21:24; Start 02/28/17 at 12:45 Piperacillin Sod/ Tazobactam Sod (Zosyn) 3.375 gm Q6HRS IV ; Start 02/28/17 at 18:00; Status UNV Pyridostigmine [place] (Mestinon) 60 mg QID PO Last administered on 03/05/17 13:11; Start 02/28/17 at 13:00 Bupropion HCl (Wellbutrin Xl) 300 mg DAILY PO Last administered on 03/05/17 08 :57; Start 02/28/17 at 13:00 Duloxetine HCl (Cymbalta) 120 mg DAILY PO Last administered on 03/05/17 08:58 ; Start 02/28/17 at 13:00 Gabapentin (Neurontin) 300 mg TID PO Last administered on 03/05/17 13:11; Start 02/28/17 at 14:00 Losartan Potassium (Cozaar) 100 mg DAILY PO Last administered on 03/05/17 08: 57; Start 02/28/17 at 13:00 Doxycycline Hyclate (Vibra-Tab) 100 mg BID PO Last administered on 03/05/17 08 :57; Start 02/28/17 at 14:00 Ondansetron HCl (Zofran) 4 mg PRN Q6HRS PRN IV NAUSEA/VOMITING; Start 02/28/17 at 17:30; Stop 03/01/17 at 17:29; Status DC Fentanyl Citrate (Fentanyl 2ml Vial) 25 mcg PRN Q5MIN PRN IV MILD PAIN; Start 02/28/17 at 17:30; Stop 03/01/17 at 17:29; Status DC Fentanyl Citrate (Fentanyl 2ml Vial) 50 mcg PRN Q5MIN PRN IV MODERATE PAIN Last administered on 03/01/17 00:04; Start 02/28/17 at 17:30; Stop 03/01/17 at 17:29; Status DC Morphine Sulfate 1 mg PRN Q10MIN PRN IV SEVERE PAIN; Start 02/28/17 at 17:30; Stop 03/01/17 at 17:29; Status DC Ringer's Solution 1,000 ml @ 30 mls/hr Q24H IV Last administered on 03/01/17t 06:01; Start 02/28/17 at 17:17; Stop 03/01/17 at 05:16; Status DC Lidocaine HCl (Xylocaine-Mpf 1% Vial) 2 ml 1X PRN PRN ID IV START; Start at 17:30; Stop 03/01/17 at 17:29; Status DC Hydromorphone HCl (Dilaudid) 0.5 mg PRN Q10MIN PRN IV SEV PAIN, Second choice; Start 02/28/17 at 17:30; Stop 03/01/17 at 17:29; Status DC Prochlorperazine Edisylate (Compazine) 5 mg PACU PRN PRN IV NAUSEA, MRX1; Start 02/28/17 at 17:30; Stop 03/01/17 at 17:29; Status DC Sevoflurane (Ultane) 60 ml STK-MED ONCE IH ; Start 02/28/17 at 17:21; Stop 02/28 at 17:22; Status DC Fentanyl Citrate (Fentanyl 2ml Vial) 100 mcg STK-MED ONCE .ROUTE ; Start at 17:22; Stop 02/28/17 at 17:23; Status DC Midazolam HCl (Versed) 2 mg STK-MED ONCE .ROUTE ; Start 02/28/17 at 17:22; Stop 02/28/17 at 17:23; Status DC Propofol 20 ml @ As Directed STK-MED ONCE IV ; Start 02/28/17 at 17:22; Stop at 17:23; Status DC Dexamethasone Sodium Phosphate (Decadron) 20 mg STK-MED ONCE .ROUTE ; Start at 17:23; Stop 02/28/17 at 17:24; Status DC Ondansetron HCl (Zofran) 4 mg STK-MED ONCE .ROUTE ; Start 02/28/17 at 17:23; Stop 02/28/17 at 17:24; Status DC Lidocaine HCl (Lidocaine Pf 2% Vial) 5 ml STK-MED ONCE .ROUTE ; Start 02/28/17 at 17:23; Stop 02/28/17 at 17:24; Status DC Clindamycin Phosphate 50 ml @ As Directed STK-MED ONCE IV ; Start 02/28/17 at 17 :35; Stop 02/28/17 at 17:36; Status DC Phenylephrine HCl 1 mg STK-MED ONCE IV ; Start 02/28/17 at 17:56; Stop 02/28/17 at 17:57; Status DC Clindamycin Phosphate 50 ml @ 100 mls/hr 1X ONCE IV Last administered on 02/28 17:58; Start 02/28/17 at 17:58; Stop 02/28/17 at 19:42; Status DC Clindamycin Phosphate 50 ml @ 100 mls/hr Q6H IV Last administered on 12:42; Start 03/01/17 at 00:00; Stop 03/01/17 at 12:29; Status DC Ondansetron HCl (Zofran) 4 mg PRN Q4HRS PRN IV NAUSEA/VOMITING 1ST CHOICE Last administered on 03/04/17 11:01; Start 02/28/17 at 20:30 Dextrose (Dextrose 50%-Water Syringe) 12.5 gm PRN Q15MIN PRN IV SEE COMMENTS; Start 02/28/17 at 20:30 Iohexol (Omnipaque 300 Mg/ml) 75 ml 1X ONCE IV Last administered on 03/01/17 17:45; Start 03/01/17 at 17:45; Stop 03/01/17 at 17:46; Status DC Albuterol Sulfate (Ventolin Neb Soln) 2.5 mg RTQID NEB Last administered on 10:33; Start 03/01/17 at 21:00 Potassium Chloride (Klor-Con) 40 meq 1X ONCE PO Last administered on 17:44; Start 03/03/17 at 17:00; Stop 03/03/17 at 17:01; Status DC Cyanocobalamin (Vitamin B-12) 1,000 mcg ONCE STAT IM Last administered on 03/04 13:48; Start 03/04/17 at 13:26; Stop 03/04/17 at 13:30; Status DC Active Scripts Active Doxycycline Hyclate 100 Mg Tablet 100 Mg PO BID [Warfarin Sodium] 1 EACH Each 1 Each MC PRN DAILY PRN 30 Days Amlodipine Besylate 10 Mg Tablet 10 Mg PO DAILY Reported Mestinon (Pyridostigmine [place]) 60 Mg Tablet 60 Mg PO QID [EquateMultiVitLutein] 1 Tab PO DAILY Cymbalta (Duloxetine Hcl) 60 Mg Capsule. 2 Cap PO DAILY Gabapentin 300 Mg Capsule 300 Mg PO TID Hydrocodone-Apap 7.5-325 (Hydrocodone Bit/Acetaminophen) 1 Each Tablet 1 Tab PO PRN Q6HRS PRN Xanax (Alprazolam) 0.5 Mg Tablet 1 Mg PO PRN TID PRN Vitamin D-3 (Cholecalciferol (Vitamin D3)) 2,000 Unit Tablet 1,000 Unit PO DAILY06 Atorvastatin Calcium 10 Mg Tablet 10 Mg PO DAILY Losartan Potassium 100 Mg Tablet 100 Mg PO DAILY Bupropion Xl (Bupropion Hcl) 300 Mg Tab.er.24h 300 Mg PO DAILY Vitals/I & O Vital Sign - Last 24 Hours 03/04/17 03/04/17 03/04/17 03/04/17 15:00 16:05 19:17 19:49 Temp 97.0 98.4 97.0 98.4 Pulse 66 95 Resp 20 18 B/P (MAP) 122/60 (80) 115/59 (77) Pulse Ox 96 94 O2 Delivery Room Air Room Air Room Air Nasal Cannula O2 Flow Rate 2.5 03/04/17 03/04/17 03/05/17 03/05/17 20:00 23:15 03:17 06:55 Temp 98.2 97.8 98.2 97.8 Pulse 69 70 Resp 18 18 B/P (MAP) 116/61 (79) 114/66 (82) Pulse Ox 93 94 95 O2 Delivery Nasal Cannula Nasal Cannula Nasal Cannula Room Air O2 Flow Rate 2.5 2.5 2.5 03/05/17 03/05/17 03/05/17 03/05/17 07:00 07:30 08:57 08:58 Temp 98.0 98.0 Pulse 75 75 75 Resp 18 B/P (MAP) 118/63 (81) 118/63 118/63 Pulse Ox 99 O2 Delivery BiPAP/CPAP Nasal Cannula O2 Flow Rate 2.5 03/05/17 03/05/17 10:33 11:00 Temp 97.5 97.5 Pulse 68 Resp 18 B/P (MAP) 128/65 (86) Pulse Ox 97 O2 Delivery Room Air Room Air Intake and Output 03/05/17 03/05/17 03/06/17 15:00 23:00 07:00 Intake Total 120 ml Balance 120 ml UNA AGUILAR III DO Mar 05, 2017 13:23
[2017-03-05 15:00] VITALS: BP 109/56
[2017-03-05 19:00] VITALS: BP 113/63
[2017-03-05] MEDS: ATORVASTATIN CALCIUM 10 MG TABLET. PO SCH (20:35)
[2017-03-05] MEDS: oxyCODONE/APAP 5/325 1 TAB TABLET PO PRN (22:57)
[2017-03-05 23:00] VITALS: BP 125/63
[2017-03-06 03:30] VITALS: BP 117/56
[2017-03-06 04:41] LABS: BASO # 0.1 x10^3/uL (0.0-0.2); BASO % 1 % (0-3); EOS % 6 % (0-3); HEMATOCRIT 38.1 % (36.0-47.0); HEMOGLOBIN 11.9 g/dL (12.0-15.5); LYMPH # 2.6 x10^3/uL (1.0-4.8); LYMPH % 31 % (24-48); MEAN CORPUSCULAR HEMOGLOBIN 25 pg (25-35); MEAN CORPUSCULAR HGB CONC 31 g/dL (31-37); MEAN CORPUSCULAR VOLUME 80 fL (79-100); MONO % 11 % (0-9); NEUT % 52 % (31-73); PLATELET COUNT 357 x10^3/uL (140-400); RED BLOOD COUNT 4.77 x10^6/uL (3.50-5.40); RED CELL DISTRIBUTION WIDTH 20.8 % (11.5-14.5); WHITE BLOOD COUNT 8.7 x10^3/uL (4.0-11.0)
[2017-03-06 04:50] LABS: ALBUMIN 2.4 g/dL (3.4-5.0); ALBUMIN/GLOBULIN RATIO 0.7 (1.0-1.7); CALCIUM 9.4 mg/dL (8.5-10.1); CREATININE 0.7 mg/dL (0.6-1.0); GFR 83.5; POTASSIUM 3.3 mmol/L (3.5-5.1); TOTAL BILIRUBIN 0.2 mg/dL (0.2-1.0); TOTAL PROTEIN 5.9 g/dL (6.4-8.2)
[2017-03-06 07:00] VITALS: BP 128/66
[2017-03-06] MEDS: DULoxetine HCL 30 MG CAPSULE.DR PO SCH (08:47)
[2017-03-06] MEDS: amLODIPine BESYLATE 10 MG TABLET PO SCH (08:48)
[2017-03-06] MEDS: PYRIDOSTIGMINE BROMIDE 60 MG TABLET PO SCH ×4 (08:48→21:19)
[2017-03-06] MEDS: DOXYCYCLINE HYCLATE 100 MG TABLET PO SCH ×2 (08:48→21:19)
[2017-03-06] MEDS: LOSARTAN POTASSIUM 50 MG TABLET. PO SCH (08:48)
[2017-03-06] MEDS: GABAPENTIN 300 MG CAPSULE. PO SCH ×3 (08:49→21:19)
[2017-03-06] MEDS: buPROPion XL 150 MG TAB.ER.24H. PO SCH (08:49)
[2017-03-06] MEDS ORDERED: POTASSIUM CHLORIDE 20 MEQ TABLET.ER. PO ONE (09:00)
[2017-03-06] MEDS: ALBUTEROL SULFATE 2.5 MG/3 ML NEBU. NEB SCH ×4 (09:34→20:16)
[2017-03-06 11:00] VITALS: BP 115/64
--- NOTE | 2017-03-06 12:14 | PDOC ---
PROGRESS NOTES Assessment Problems Medical Problems: (1) Hip dislocation, left Status: Acute Myasthenia gravis, serology pending Left superior and medial dislocation of femoral prothesis. Vitamin B12 deficiency. Plan Continue Mestinon, 60 mg qid Hold off on immune therapy for myasthenia pending the laboratory results Orthopedic treatment. Treat medical diseases. OT/PT. Possible fci unit Subjective feels better after B12 Objective Vital Signs Date Time Temp Pulse Resp B/P (MAP) Pulse Ox O2 Delivery O2 Flow Rate FiO2 03/06/17 11:00 98.4 81 18 115/64 (81) 97 Room Air 98.4 03/05/17 20:00 2.5 Intake and Output 03/07/17 07:00 Intake Total 360 ml Balance 360 ml Intake Oral 360 ml PHYSICAL EXAM Alert. Oriented to time, place and person. PERRL. EOMI. No diplopia CN: no focal findings. Muscle tone: normal. Muscle strength: 4/5, left leg limited by pain DTR: 2+ Plantar reflex: flexor Gait: not examined in bed. Sensory exam: no abnormal findings. No cerebellar signs elicited. Review of Relevant I have reviewed the following items antonio (where applicable) has been applied. Labs Laboratory Tests Test 03/06/17 03:36 White Blood Count 8.7 x10^3/uL (4.0-11.0) Red Blood Count 4.77 x10^6/uL (3.50-5.40) Hemoglobin 11.9 g/dL (12.0-15.5) Hematocrit 38.1 % (36.0-47.0) Mean Corpuscular Volume 80 fL (79-100) Mean Corpuscular Hemoglobin 25 pg (25-35) Mean Corpuscular Hemoglobin Concent 31 g/dL (31-37) Red Cell Distribution Width 20.8 % (11.5-14.5) Platelet Count 357 x10^3/uL (140-400) Neutrophils (%) (Auto) 52 % (31-73) Lymphocytes (%) (Auto) 31 % (24-48) Monocytes (%) (Auto) 11 % (0-9) Eosinophils (%) (Auto) 6 % (0-3) Basophils (%) (Auto) 1 % (0-3) Neutrophils # (Auto) 4.5 x10^3uL (1.8-7.7) Lymphocytes # (Auto) 2.6 x10^3/uL (1.0-4.8) Monocytes # (Auto) 1.0 x10^3/uL (0.0-1.1) Eosinophils # (Auto) 0.5 x10^3/uL (0.0-0.7) Basophils # (Auto) 0.1 x10^3/uL (0.0-0.2) Sodium Level 141 mmol/L (136-145) Potassium Level 3.3 mmol/L (3.5-5.1) Chloride Level 105 mmol/L (98-107) Carbon Dioxide Level 31 mmol/L (21-32) Anion Gap 5 (6-14) Blood Urea Nitrogen 16 mg/dL (7-20) Creatinine 0.7 mg/dL (0.6-1.0) Estimated GFR (Cockcroft-Gault) 83.5 BUN/Creatinine Ratio 23 (6-20) Glucose Level 120 mg/dL (70-99) Calcium Level 9.4 mg/dL (8.5-10.1) Total Bilirubin 0.2 mg/dL (0.2-1.0) Aspartate Amino Transf (AST/SGOT) 23 U/L (15-37) Alanine Aminotransferase (ALT/SGPT) 28 U/L (14-59) Alkaline Phosphatase 85 U/L (46-116) Total Protein 5.9 g/dL (6.4-8.2) Albumin 2.4 g/dL (3.4-5.0) Albumin/Globulin Ratio 0.7 (1.0-1.7) Laboratory Tests Test 03/06/17 03:36 White Blood Count 8.7 x10^3/uL (4.0-11.0) Red Blood Count 4.77 x10^6/uL (3.50-5.40) Hemoglobin 11.9 g/dL (12.0-15.5) Hematocrit 38.1 % (36.0-47.0) Mean Corpuscular Volume 80 fL (79-100) Mean Corpuscular Hemoglobin 25 pg (25-35) Mean Corpuscular Hemoglobin Concent 31 g/dL (31-37) Red Cell Distribution Width 20.8 % (11.5-14.5) Platelet Count 357 x10^3/uL (140-400) Neutrophils (%) (Auto) 52 % (31-73) Lymphocytes (%) (Auto) 31 % (24-48) Monocytes (%) (Auto) 11 % (0-9) Eosinophils (%) (Auto) 6 % (0-3) Basophils (%) (Auto) 1 % (0-3) Neutrophils # (Auto) 4.5 x10^3uL (1.8-7.7) Lymphocytes # (Auto) 2.6 x10^3/uL (1.0-4.8) Monocytes # (Auto) 1.0 x10^3/uL (0.0-1.1) Eosinophils # (Auto) 0.5 x10^3/uL (0.0-0.7) Basophils # (Auto) 0.1 x10^3/uL (0.0-0.2) Sodium Level 141 mmol/L (136-145) Potassium Level 3.3 mmol/L (3.5-5.1) Chloride Level 105 mmol/L (98-107) Carbon Dioxide Level 31 mmol/L (21-32) Anion Gap 5 (6-14) Blood Urea Nitrogen 16 mg/dL (7-20) Creatinine 0.7 mg/dL (0.6-1.0) Estimated GFR (Cockcroft-Gault) 83.5 BUN/Creatinine Ratio 23 (6-20) Glucose Level 120 mg/dL (70-99) Calcium Level 9.4 mg/dL (8.5-10.1) Total Bilirubin 0.2 mg/dL (0.2-1.0) Aspartate Amino Transf (AST/SGOT) 23 U/L (15-37) Alanine Aminotransferase (ALT/SGPT) 28 U/L (14-59) Alkaline Phosphatase 85 U/L (46-116) Total Protein 5.9 g/dL (6.4-8.2) Albumin 2.4 g/dL (3.4-5.0) Albumin/Globulin Ratio 0.7 (1.0-1.7) Medications Current Medications Fentanyl Citrate (Fentanyl 2ml Vial) 50 mcg 1X ONCE IV Last administered on t 22:15; Start 02/27/17 at 22:15; Stop 02/27/17 at 22:16; Status DC Ondansetron HCl (Zofran) 4 mg 1X ONCE IV Last administered on 02/27/17 22:15 ; Start 02/27/17 at 22:15; Stop 02/27/17 at 22:16; Status DC Sodium Chloride 1,000 ml @ 125 mls/hr 1X ONCE IV Last administered on 22:15; Start 02/27/17 at 22:15; Stop 02/28/17 at 06:14; Status DC Ondansetron HCl (Zofran) 4 mg PRN Q8HRS PRN IV NAUSEA/VOMITING Last administered on 02/28/17 09:12; Start 02/27/17 at 23:45; Stop 02/28/17 at 23:44 ; Status DC Fentanyl Citrate (Fentanyl 2ml Vial) 50 mcg PRN Q2HR PRN IV PAIN Last administered on 02/28/17 22:02; Start 02/27/17 at 23:45; Stop 02/28/17 at 23:44 ; Status DC Oxycodone/ Acetaminophen (Percocet 5/325) 1 tab PRN Q4HRS PRN PO MODERATE PAIN Last administered on 03/05/17 22:57; Start 02/28/17 at 04:00 Oxycodone/ Acetaminophen (Percocet 10/325) 1 tab PRN Q4HRS PRN PO SEVERE PAIN Last administered on 03/02/17 06:12; Start 02/28/17 at 04:00 Alprazolam (Xanax) 1 mg PRN TID PRN PO ANXIETY; Start 02/28/17 at 12:45 Amlodipine Besylate (Norvasc) 10 mg DAILY PO Last administered on 03/06/17 08: 48; Start 02/28/17 at 13:00 Atorvastatin Calcium (Lipitor) 10 mg QHS PO Last administered on 03/05/17 20: 35; Start 02/28/17 at 21:00 Daptomycin (Cubicin) 625 mg DAILY IV ; Start 03/01/17 at 09:00; Status UNV Acetaminophen/ Hydrocodone Bitart (Lortab 7.5/325) 1 tab PRN Q6HRS PRN PO MILD PAIN Last administered on 03/03/17 21:24; Start 02/28/17 at 12:45 Piperacillin Sod/ Tazobactam Sod (Zosyn) 3.375 gm Q6HRS IV ; Start 02/28/17 at 18:00; Status UNV Pyridostigmine Cassandra (Mestinon) 60 mg QID PO Last administered on 03/06/17 08:48; Start 02/28/17 at 13:00 Bupropion HCl (Wellbutrin Xl) 300 mg DAILY PO Last administered on 03/06/17 08 :49; Start 02/28/17 at 13:00 Duloxetine HCl (Cymbalta) 120 mg DAILY PO Last administered on 03/06/17 08:47 ; Start 02/28/17 at 13:00 Gabapentin (Neurontin) 300 mg TID PO Last administered on 03/06/17 08:49; Start 02/28/17 at 14:00 Losartan Potassium (Cozaar) 100 mg DAILY PO Last administered on 03/06/17 08: 48; Start 02/28/17 at 13:00 Doxycycline Hyclate (Vibra-Tab) 100 mg BID PO Last administered on 03/06/17 08 :48; Start 02/28/17 at 14:00 Ondansetron HCl (Zofran) 4 mg PRN Q6HRS PRN IV NAUSEA/VOMITING; Start 02/28/17 at 17:30; Stop 03/01/17 at 17:29; Status DC Fentanyl Citrate (Fentanyl 2ml Vial) 25 mcg PRN Q5MIN PRN IV MILD PAIN; Start 02/28/17 at 17:30; Stop 03/01/17 at 17:29; Status DC Fentanyl Citrate (Fentanyl 2ml Vial) 50 mcg PRN Q5MIN PRN IV MODERATE PAIN Last administered on 03/01/17 00:04; Start 02/28/17 at 17:30; Stop 03/01/17 at 17:29; Status DC Morphine Sulfate 1 mg PRN Q10MIN PRN IV SEVERE PAIN; Start 02/28/17 at 17:30; Stop 03/01/17 at 17:29; Status DC Ringer's Solution 1,000 ml @ 30 mls/hr Q24H IV Last administered on 03/01/17 06:01; Start 02/28/17 at 17:17; Stop 03/01/17 at 05:16; Status DC Lidocaine HCl (Xylocaine-Mpf 1% Vial) 2 ml 1X PRN PRN ID IV START; Start at 17:30; Stop 03/01/17 at 17:29; Status DC Hydromorphone HCl (Dilaudid) 0.5 mg PRN Q10MIN PRN IV SEV PAIN, Second choice; Start 02/28/17 at 17:30; Stop 03/01/17 at 17:29; Status DC Prochlorperazine Edisylate (Compazine) 5 mg PACU PRN PRN IV NAUSEA, MRX1; Start 02/28/17 at 17:30; Stop 03/01/17 at 17:29; Status DC Sevoflurane (Ultane) 60 ml STK-MED ONCE IH ; Start 02/28/17 at 17:21; Stop 02/28 at 17:22; Status DC Fentanyl Citrate (Fentanyl 2ml Vial) 100 mcg STK-MED ONCE .ROUTE ; Start at 17:22; Stop 02/28/17 at 17:23; Status DC Midazolam HCl (Versed) 2 mg STK-MED ONCE .ROUTE ; Start 02/28/17 at 17:22; Stop 02/28/17 at 17:23; Status DC Propofol 20 ml @ As Directed STK-MED ONCE IV ; Start 02/28/17 at 17:22; Stop at 17:23; Status DC Dexamethasone Sodium Phosphate (Decadron) 20 mg STK-MED ONCE .ROUTE ; Start at 17:23; Stop 02/28/17 at 17:24; Status DC Ondansetron HCl (Zofran) 4 mg STK-MED ONCE .ROUTE ; Start 02/28/17 at 17:23; Stop 02/28/17 at 17:24; Status DC Lidocaine HCl (Lidocaine Pf 2% Vial) 5 ml STK-MED ONCE .ROUTE ; Start 02/28/17 at 17:23; Stop 02/28/17 at 17:24; Status DC Clindamycin Phosphate 50 ml @ As Directed STK-MED ONCE IV ; Start 02/28/17 at 17 :35; Stop 02/28/17 at 17:36; Status DC Phenylephrine HCl 1 mg STK-MED ONCE IV ; Start 02/28/17 at 17:56; Stop 02/28/17 at 17:57; Status DC Clindamycin Phosphate 50 ml @ 100 mls/hr 1X ONCE IV Last administered on 02/28 17:58; Start 02/28/17 at 17:58; Stop 02/28/17 at 19:42; Status DC Clindamycin Phosphate 50 ml @ 100 mls/hr Q6H IV Last administered on 12:42; Start 03/01/17 at 00:00; Stop 03/01/17 at 12:29; Status DC Ondansetron HCl (Zofran) 4 mg PRN Q4HRS PRN IV NAUSEA/VOMITING 1ST CHOICE Last administered on 03/04/17 11:01; Start 02/28/17 at 20:30 Dextrose (Dextrose 50%-Water Syringe) 12.5 gm PRN Q15MIN PRN IV SEE COMMENTS; Start 02/28/17 at 20:30 Iohexol (Omnipaque 300 Mg/ml) 75 ml 1X ONCE IV Last administered on 03/01/17 17:45; Start 03/01/17 at 17:45; Stop 03/01/17 at 17:46; Status DC Albuterol Sulfate (Ventolin Neb Soln) 2.5 mg RTQID NEB Last administered on 09:34; Start 03/01/17 at 21:00 Potassium Chloride (Klor-Con) 40 meq 1X ONCE PO Last administered on 17:44; Start 03/03/17 at 17:00; Stop 03/03/17 at 17:01; Status DC Cyanocobalamin (Vitamin B-12) 1,000 mcg ONCE STAT IM Last administered on 03/04 13:48; Start 03/04/17 at 13:26; Stop 03/04/17 at 13:30; Status DC Potassium Chloride (Klor-Con) 40 meq 1X ONCE PO Last administered on 09:13; Start 03/06/17 at 09:00; Stop 03/06/17 at 09:01; Status DC Active Scripts Active Doxycycline Hyclate 100 Mg Tablet 100 Mg PO BID [Warfarin Sodium] 1 EACH Each 1 Each MC PRN DAILY PRN 30 Days Amlodipine Besylate 10 Mg Tablet 10 Mg PO DAILY Reported Mestinon (Pyridostigmine Cassandra) 60 Mg Tablet 60 Mg PO QID [EquateMultiVitLutein] 1 Tab PO DAILY Cymbalta (Duloxetine Hcl) 60 Mg Capsule. 2 Cap PO DAILY Gabapentin 300 Mg Capsule 300 Mg PO TID Hydrocodone-Apap 7.5-325 (Hydrocodone Bit/Acetaminophen) 1 Each Tablet 1 Tab PO PRN Q6HRS PRN Xanax (Alprazolam) 0.5 Mg Tablet 1 Mg PO PRN TID PRN Vitamin D-3 (Cholecalciferol (Vitamin D3)) 2,000 Unit Tablet 1,000 Unit PO DAILY06 Atorvastatin Calcium 10 Mg Tablet 10 Mg PO DAILY Losartan Potassium 100 Mg Tablet 100 Mg PO DAILY Bupropion Xl (Bupropion Hcl) 300 Mg Tab.er.24h 300 Mg PO DAILY Vitals/I & O Vital Sign - Last 24 Hours 03/05/17 03/05/17 03/05/17 03/05/17 14:44 15:00 19:00 20:00 Temp 97.6 97.7 97.6 97.7 Pulse 80 76 Resp 18 18 B/P (MAP) 109/56 (73) 113/63 (80) Pulse Ox 92 93 O2 Delivery Room Air Room Air Room Air Nasal Cannula O2 Flow Rate 2.5 03/05/17 03/05/17 03/05/17 03/06/17 20:04 22:57 23:00 00:00 Temp 98.5 98.5 Pulse 70 Resp 20 18 20 B/P (MAP) 125/63 (83) Pulse Ox 96 96 94 O2 Delivery Room Air BiPAP/CPAP Room Air Room Air 03/06/17 03/06/17 03/06/17 03/06/17 03:30 07:00 07:15 08:48 Temp 98.3 97.7 98.3 97.7 Pulse 67 67 67 Resp 18 18 B/P (MAP) 117/56 (76) 128/66 (86) 128/66 Pulse Ox 98 94 O2 Delivery BiPAP/CPAP BiPAP/CPAP Room Air 03/06/17 03/06/17 03/06/17 08:48 09:35 11:00 Temp 98.4 98.4 Pulse 67 81 Resp 18 B/P (MAP) 128/66 115/64 (81) Pulse Ox 97 97 O2 Delivery Room Air Room Air Intake and Output 03/06/17 03/06/1703/07/17 15:00 23:00 07:00 Intake Total 360 ml Balance 360 ml KALLI FISHER MD Mar 06, 2017 12:14
[2017-03-06] MEDS ORDERED: ACETAMINOPHEN 325 MG TABLET. PO PRN (14:30)
--- NOTE | 2017-03-06 14:34 | PDOC ---
PROGRESS NOTES Chief Complaint Chief Complaint L hip dislocation post ORIF 02/28 h/o Pericarditis Anemia Obesity CAD HTN Hyperlipidemia ZENON Peripheral neuropathy vitb12 deficiency hypokalemia myesthenia gravis OA plan: fu with neuro, ortho WBAT cont current meds as per pt, ortho will add wound vav, pending SW involve for SNF tmr PTOT replete K vitb12 IM qm History of Present Illness History of Present Illness ROS: no fever, chills, sob or chest pain many questions about her VITb12, EEG, MS all not acute issues this time, much educations done cannot move her fingers much with arthritis Vitals Vitals Vital Signs Date Time Temp Pulse Resp B/P (MAP) Pulse Ox O2 Delivery O2 Flow Rate FiO2 03/06/17 11:00 98.4 81 18 115/64 (81) 97 Room Air 98.4 03/05/17 20:00 2.5 Physical Exam General: Alert, Oriented X3, Cooperative, No acute distress Heart: Regular rate, Normal S1, Normal S2, No murmurs Lungs: Clear Abdomen: Normal bowel sounds, No tenderness Extremities: No clubbing, No cyanosis, No edema, Other (L hip incison covered with clean bandage) Skin: No rashes, No breakdown, No significant lesion Labs LABS Laboratory Tests Test 03/06/17 03:36 White Blood Count 8.7 x10^3/uL (4.0-11.0) Red Blood Count 4.77 x10^6/uL (3.50-5.40) Hemoglobin 11.9 g/dL (12.0-15.5) Hematocrit 38.1 % (36.0-47.0) Mean Corpuscular Volume 80 fL (79-100) Mean Corpuscular Hemoglobin 25 pg (25-35) Mean Corpuscular Hemoglobin Concent 31 g/dL (31-37) Red Cell Distribution Width 20.8 % (11.5-14.5) Platelet Count 357 x10^3/uL (140-400) Neutrophils (%) (Auto) 52 % (31-73) Lymphocytes (%) (Auto) 31 % (24-48) Monocytes (%) (Auto) 11 % (0-9) Eosinophils (%) (Auto) 6 % (0-3) Basophils (%) (Auto) 1 % (0-3) Neutrophils # (Auto) 4.5 x10^3uL (1.8-7.7) Lymphocytes # (Auto) 2.6 x10^3/uL (1.0-4.8) Monocytes # (Auto) 1.0 x10^3/uL (0.0-1.1) Eosinophils # (Auto) 0.5 x10^3/uL (0.0-0.7) Basophils # (Auto) 0.1 x10^3/uL (0.0-0.2) Sodium Level 141 mmol/L (136-145) Potassium Level 3.3 mmol/L (3.5-5.1) Chloride Level 105 mmol/L (98-107) Carbon Dioxide Level 31 mmol/L (21-32) Anion Gap 5 (6-14) Blood Urea Nitrogen 16 mg/dL (7-20) Creatinine 0.7 mg/dL (0.6-1.0) Estimated GFR (Cockcroft-Gault) 83.5 BUN/Creatinine Ratio 23 (6-20) Glucose Level 120 mg/dL (70-99) Calcium Level 9.4 mg/dL (8.5-10.1) Total Bilirubin 0.2 mg/dL (0.2-1.0) Aspartate Amino Transf (AST/SGOT) 23 U/L (15-37) Alanine Aminotransferase (ALT/SGPT) 28 U/L (14-59) Alkaline Phosphatase 85 U/L (46-116) Total Protein 5.9 g/dL (6.4-8.2) Albumin 2.4 g/dL (3.4-5.0) Albumin/Globulin Ratio 0.7 (1.0-1.7) Assessment and Plan Assessmemt and Plan Problems Medical Problems: (1) Hip dislocation, left Status: Acute Problems: Comment Review of Relevant I have reviewed the following items antonio (where applicable) has been applied. Labs Laboratory Tests Test 03/06/17 03:36 White Blood Count 8.7 x10^3/uL (4.0-11.0) Red Blood Count 4.77 x10^6/uL (3.50-5.40) Hemoglobin 11.9 g/dL (12.0-15.5) Hematocrit 38.1 % (36.0-47.0) Mean Corpuscular Volume 80 fL (79-100) Mean Corpuscular Hemoglobin 25 pg (25-35) Mean Corpuscular Hemoglobin Concent 31 g/dL (31-37) Red Cell Distribution Width 20.8 % (11.5-14.5) Platelet Count 357 x10^3/uL (140-400) Neutrophils (%) (Auto) 52 % (31-73) Lymphocytes (%) (Auto) 31 % (24-48) Monocytes (%) (Auto) 11 % (0-9) Eosinophils (%) (Auto) 6 % (0-3) Basophils (%) (Auto) 1 % (0-3) Neutrophils # (Auto) 4.5 x10^3uL (1.8-7.7) Lymphocytes # (Auto) 2.6 x10^3/uL (1.0-4.8) Monocytes # (Auto) 1.0 x10^3/uL (0.0-1.1) Eosinophils # (Auto) 0.5 x10^3/uL (0.0-0.7) Basophils # (Auto) 0.1 x10^3/uL (0.0-0.2) Sodium Level 141 mmol/L (136-145) Potassium Level 3.3 mmol/L (3.5-5.1) Chloride Level 105 mmol/L (98-107) Carbon Dioxide Level 31 mmol/L (21-32) Anion Gap 5 (6-14) Blood Urea Nitrogen 16 mg/dL (7-20) Creatinine 0.7 mg/dL (0.6-1.0) Estimated GFR (Cockcroft-Gault) 83.5 BUN/Creatinine Ratio 23 (6-20) Glucose Level 120 mg/dL (70-99) Calcium Level 9.4 mg/dL (8.5-10.1) Total Bilirubin 0.2 mg/dL (0.2-1.0) Aspartate Amino Transf (AST/SGOT) 23 U/L (15-37) Alanine Aminotransferase (ALT/SGPT) 28 U/L (14-59) Alkaline Phosphatase 85 U/L (46-116) Total Protein 5.9 g/dL (6.4-8.2) Albumin 2.4 g/dL (3.4-5.0) Albumin/Globulin Ratio 0.7 (1.0-1.7) Laboratory Tests Test 03/06/17 03:36 White Blood Count 8.7 x10^3/uL (4.0-11.0) Red Blood Count 4.77 x10^6/uL (3.50-5.40) Hemoglobin 11.9 g/dL (12.0-15.5) Hematocrit 38.1 % (36.0-47.0) Mean Corpuscular Volume 80 fL (79-100) Mean Corpuscular Hemoglobin 25 pg (25-35) Mean Corpuscular Hemoglobin Concent 31 g/dL (31-37) Red Cell Distribution Width 20.8 % (11.5-14.5) Platelet Count 357 x10^3/uL (140-400) Neutrophils (%) (Auto) 52 % (31-73) Lymphocytes (%) (Auto) 31 % (24-48) Monocytes (%) (Auto) 11 % (0-9) Eosinophils (%) (Auto) 6 % (0-3) Basophils (%) (Auto) 1 % (0-3) Neutrophils # (Auto) 4.5 x10^3uL (1.8-7.7) Lymphocytes # (Auto) 2.6 x10^3/uL (1.0-4.8) Monocytes # (Auto) 1.0 x10^3/uL (0.0-1.1) Eosinophils # (Auto) 0.5 x10^3/uL (0.0-0.7) Basophils # (Auto) 0.1 x10^3/uL (0.0-0.2) Sodium Level 141 mmol/L (136-145) Potassium Level 3.3 mmol/L (3.5-5.1) Chloride Level 105 mmol/L (98-107) Carbon Dioxide Level 31 mmol/L (21-32) Anion Gap 5 (6-14) Blood Urea Nitrogen 16 mg/dL (7-20) Creatinine 0.7 mg/dL (0.6-1.0) Estimated GFR (Cockcroft-Gault) 83.5 BUN/Creatinine Ratio 23 (6-20) Glucose Level 120 mg/dL (70-99) Calcium Level 9.4 mg/dL (8.5-10.1) Total Bilirubin 0.2 mg/dL (0.2-1.0) Aspartate Amino Transf (AST/SGOT) 23 U/L (15-37) Alanine Aminotransferase (ALT/SGPT) 28 U/L (14-59) Alkaline Phosphatase 85 U/L (46-116) Total Protein 5.9 g/dL (6.4-8.2) Albumin 2.4 g/dL (3.4-5.0) Albumin/Globulin Ratio 0.7 (1.0-1.7) Medications Current Medications Fentanyl Citrate (Fentanyl 2ml Vial) 50 mcg 1X ONCE IV Last administered on 22:15; Start 02/27/17 at 22:15; Stop 02/27/17 at 22:16; Status DC Ondansetron HCl (Zofran) 4 mg 1X ONCE IV Last administered on 02/27/17 22:15 ; Start 02/27/17 at 22:15; Stop 02/27/17 at 22:16; Status DC Sodium Chloride 1,000 ml @ 125 mls/hr 1X ONCE IV Last administered on 22:15; Start 02/27/17 at 22:15; Stop 02/28/17 at 06:14; Status DC Ondansetron HCl (Zofran) 4 mg PRN Q8HRS PRN IV NAUSEA/VOMITING Last administered on 02/28/17 09:12; Start 02/27/17 at 23:45; Stop 02/28/17 at 23:44 ; Status DC Fentanyl Citrate (Fentanyl 2ml Vial) 50 mcg PRN Q2HR PRN IV PAIN Last administered on 02/28/17 22:02; Start 02/27/17 at 23:45; Stop 02/28/17 at 23:44 ; Status DC Oxycodone/ Acetaminophen (Percocet 5/325) 1 tab PRN Q4HRS PRN PO MODERATE PAIN Last administered on 03/05/17 22:57; Start 02/28/17 at 04:00 Oxycodone/ Acetaminophen (Percocet 10/325) 1 tab PRN Q4HRS PRN PO SEVERE PAIN Last administered on 03/02/17 06:12; Start 02/28/17 at 04:00 Alprazolam (Xanax) 1 mg PRN TID PRN PO ANXIETY; Start 02/28/17 at 12:45 Amlodipine Besylate (Norvasc) 10 mg DAILY PO Last administered on 03/06/17 08: 48; Start 02/28/17 at 13:00 Atorvastatin Calcium (Lipitor) 10 mg QHS PO Last administered on 03/05/17 20: 35; Start 02/28/17 at 21:00 Daptomycin (Cubicin) 625 mg DAILY IV ; Start 03/01/17 at 09:00; Status UNV Acetaminophen/ Hydrocodone Bitart (Lortab 7.5/325) 1 tab PRN Q6HRS PRN PO MILD PAIN Last administered on 03/03/17 21:24; Start 02/28/17 at 12:45 Piperacillin Sod/ Tazobactam Sod (Zosyn) 3.375 gm Q6HRS IV ; Start 02/28/17 at 18:00; Status UNV Pyridostigmine [place] (Mestinon) 60 mg QID PO Last administered on 03/06/17 08:48; Start 02/28/17 at 13:00 Bupropion HCl (Wellbutrin Xl) 300 mg DAILY PO Last administered on 03/06/17 08 :49; Start 02/28/17 at 13:00 Duloxetine HCl (Cymbalta) 120 mg DAILY PO Last administered on 03/06/17 08:47 ; Start 02/28/17 at 13:00 Gabapentin (Neurontin) 300 mg TID PO Last administered on 03/06/17 08:49; Start 02/28/17 at 14:00 Losartan Potassium (Cozaar) 100 mg DAILY PO Last administered on 03/06/17 08: 48; Start 02/28/17 at 13:00 Doxycycline Hyclate (Vibra-Tab) 100 mg BID PO Last administered on 03/06/17 08 :48; Start 02/28/17 at 14:00 Ondansetron HCl (Zofran) 4 mg PRN Q6HRS PRN IV NAUSEA/VOMITING; Start 02/28/17 at 17:30; Stop 03/01/17 at 17:29; Status DC Fentanyl Citrate (Fentanyl 2ml Vial) 25 mcg PRN Q5MIN PRN IV MILD PAIN; Start 02/28/17 at 17:30; Stop 03/01/17 at 17:29; Status DC Fentanyl Citrate (Fentanyl 2ml Vial) 50 mcg PRN Q5MIN PRN IV MODERATE PAIN Last administered on 03/01/17t 00:04; Start 02/28/17 at 17:30; Stop 03/01/17 at 17:29; Status DC Morphine Sulfate 1 mg PRN Q10MIN PRN IV SEVERE PAIN; Start 02/28/17 at 17:30; Stop 03/01/17 at 17:29; Status DC Ringer's Solution 1,000 ml @ 30 mls/hr Q24H IV Last administered on 03/01/17t 06:01; Start 02/28/17 at 17:17; Stop 03/01/17 at 05:16; Status DC Lidocaine HCl (Xylocaine-Mpf 1% Vial) 2 ml 1X PRN PRN ID IV START; Start at 17:30; Stop 03/01/17 at 17:29; Status DC Hydromorphone HCl (Dilaudid) 0.5 mg PRN Q10MIN PRN IV SEV PAIN, Second choice; Start 02/28/17 at 17:30; Stop 03/01/17 at 17:29; Status DC Prochlorperazine Edisylate (Compazine) 5 mg PACU PRN PRN IV NAUSEA, MRX1; Start 02/28/17 at 17:30; Stop 03/01/17 at 17:29; Status DC Sevoflurane (Ultane) 60 ml STK-MED ONCE IH ; Start 02/28/17 at 17:21; Stop 02/28 at 17:22; Status DC Fentanyl Citrate (Fentanyl 2ml Vial) 100 mcg STK-MED ONCE .ROUTE ; Start at 17:22; Stop 02/28/17 at 17:23; Status DC Midazolam HCl (Versed) 2 mg STK-MED ONCE .ROUTE ; Start 02/28/17 at 17:22; Stop 02/28/17 at 17:23; Status DC Propofol 20 ml @ As Directed STK-MED ONCE IV ; Start 02/28/17 at 17:22; Stop at 17:23; Status DC Dexamethasone Sodium Phosphate (Decadron) 20 mg STK-MED ONCE .ROUTE ; Start at 17:23; Stop 02/28/17 at 17:24; Status DC Ondansetron HCl (Zofran) 4 mg STK-MED ONCE .ROUTE ; Start 02/28/17 at 17:23; Stop 02/28/17 at 17:24; Status DC Lidocaine HCl (Lidocaine Pf 2% Vial) 5 ml STK-MED ONCE .ROUTE ; Start 02/28/17 at 17:23; Stop 02/28/17 at 17:24; Status DC Clindamycin Phosphate 50 ml @ As Directed STK-MED ONCE IV ; Start 02/28/17 at 17 :35; Stop 02/28/17 at 17:36; Status DC Phenylephrine HCl 1 mg STK-MED ONCE IV ; Start 02/28/17 at 17:56; Stop 02/28/17 at 17:57; Status DC Clindamycin Phosphate 50 ml @ 100 mls/hr 1X ONCE IV Last administered on 02/28 17:58; Start 02/28/17 at 17:58; Stop 02/28/17 at 19:42; Status DC Clindamycin Phosphate 50 ml @ 100 mls/hr Q6H IV Last administered on 12:42; Start 03/01/17 at 00:00; Stop 03/01/17 at 12:29; Status DC Ondansetron HCl (Zofran) 4 mg PRN Q4HRS PRN IV NAUSEA/VOMITING 1ST CHOICE Last administered on 03/04/17 11:01; Start 02/28/17 at 20:30 Dextrose (Dextrose 50%-Water Syringe) 12.5 gm PRN Q15MIN PRN IV SEE COMMENTS; Start 02/28/17 at 20:30 Iohexol (Omnipaque 300 Mg/ml) 75 ml 1X ONCE IV Last administered on 03/01/17 17:45; Start 03/01/17 at 17:45; Stop 03/01/17 at 17:46; Status DC Albuterol Sulfate (Ventolin Neb Soln) 2.5 mg RTQID NEB Last administered on 09:34; Start 03/01/17 at 21:00 Potassium Chloride (Klor-Con) 40 meq 1X ONCE PO Last administered on 17:44; Start 03/03/17 at 17:00; Stop 03/03/17 at 17:01; Status DC Cyanocobalamin (Vitamin B-12) 1,000 mcg ONCE STAT IM Last administered on 03/04 13:48; Start 03/04/17 at 13:26; Stop 03/04/17 at 13:30; Status DC Potassium Chloride (Klor-Con) 40 meq 1X ONCE PO Last administered on 09:13; Start 03/06/17 at 09:00; Stop 03/06/17 at 09:01; Status DC Active Scripts Active Doxycycline Hyclate 100 Mg Tablet 100 Mg PO BID [Warfarin Sodium] 1 EACH Each 1 Each MC PRN DAILY PRN 30 Days Amlodipine Besylate 10 Mg Tablet 10 Mg PO DAILY Reported Mestinon (Pyridostigmine [place]) 60 Mg Tablet 60 Mg PO QID [EquateMultiVitLutein] 1 Tab PO DAILY Cymbalta (Duloxetine Hcl) 60 Mg Capsule.dr 2 Cap PO DAILY Gabapentin 300 Mg Capsule 300 Mg PO TID Hydrocodone-Apap 7.5-325 (Hydrocodone Bit/Acetaminophen) 1 Each Tablet 1 Tab PO PRN Q6HRS PRN Xanax (Alprazolam) 0.5 Mg Tablet 1 Mg PO PRN TID PRN Vitamin D-3 (Cholecalciferol (Vitamin D3)) 2,000 Unit Tablet 1,000 Unit PO DAILY06 Atorvastatin Calcium 10 Mg Tablet 10 Mg PO DAILY Losartan Potassium 100 Mg Tablet 100 Mg PO DAILY Bupropion Xl (Bupropion Hcl) 300 Mg Tab.er.24h 300 Mg PO DAILY Vitals/I & O Vital Sign - Last 24 Hours 03/05/17 03/05/17 03/05/17 03/05/17 14:44 15:00 19:00 20:00 Temp 97.6 97.7 97.6 97.7 Pulse 80 76 Resp 18 18 B/P (MAP) 109/56 (73) 113/63 (80) Pulse Ox 92 93 O2 Delivery Room Air Room Air Room Air Nasal Cannula O2 Flow Rate 2.5 03/05/17 03/05/17 03/05/17 03/06/17 20:04 22:57 23:00 00:00 Temp 98.5 98.5 Pulse 70 Resp 20 18 20 B/P (MAP) 125/63 (83) Pulse Ox 96 96 94 O2 Delivery Room Air BiPAP/CPAP Room Air Room Air 03/06/17 03/06/17 03/06/17 10/2/17 03:30 07:00 07:15 08:48 Temp 98.3 97.7 98.3 97.7 Pulse 67 67 67 Resp 18 18 B/P (MAP) 117/56 (76) 128/66 (86) 128/66 Pulse Ox 98 94 O2 Delivery BiPAP/CPAP BiPAP/CPAP Room Air 03/06/17 03/06/17 03/06/17 08:48 09:35 11:00 Temp 98.4 98.4 Pulse 67 81 Resp 18 B/P (MAP) 128/66 115/64 (81) Pulse Ox 97 97 O2 Delivery Room Air Room Air Intake and Output 03/06/17 03/06/17 03/07/17 15:00 23:00 07:00 Intake Total 360 ml Balance 360 ml GIRISH BURT MD Mar 06, 2017 14:34
[2017-03-06 15:00] VITALS: BP 103/54
[2017-03-06 19:56] VITALS: BP 136/67
[2017-03-06] MEDS: ATORVASTATIN CALCIUM 10 MG TABLET. PO SCH (21:19)
[2017-03-06] MEDS: oxyCODONE/APAP 5/325 1 TAB TABLET PO PRN (21:22)
[2017-03-06 23:26] VITALS: BP 129/56
[2017-03-07 03:32] VITALS: BP 126/51
[2017-03-07 05:00] LABS: BASO # 0.1 x10^3/uL (0.0-0.2); BASO % 1 % (0-3); EOS % 6 % (0-3); HEMATOCRIT 40.4 % (36.0-47.0); HEMOGLOBIN 13.1 g/dL (12.0-15.5); LYMPH # 2.6 x10^3/uL (1.0-4.8); LYMPH % 29 % (24-48); MEAN CORPUSCULAR HEMOGLOBIN 25 pg (25-35); MEAN CORPUSCULAR HGB CONC 32 g/dL (31-37); MEAN CORPUSCULAR VOLUME 78 fL (79-100); MONO % 11 % (0-9); NEUT % 53 % (31-73); PLATELET COUNT 384 x10^3/uL (140-400); RED BLOOD COUNT 5.15 x10^6/uL (3.50-5.40); RED CELL DISTRIBUTION WIDTH 21.1 % (11.5-14.5); WHITE BLOOD COUNT 8.8 x10^3/uL (4.0-11.0)
[2017-03-07 05:23] LABS: ALBUMIN 2.8 g/dL (3.4-5.0); ALBUMIN/GLOBULIN RATIO 0.8 (1.0-1.7); CREATININE 0.7 mg/dL (0.6-1.0); GFR 83.5; POTASSIUM 3.7 mmol/L (3.5-5.1); TOTAL BILIRUBIN 0.3 mg/dL (0.2-1.0); TOTAL PROTEIN 6.5 g/dL (6.4-8.2)
[2017-03-07 07:00] VITALS: BP 134/57
[2017-03-07] MEDS: ALBUTEROL SULFATE 2.5 MG/3 ML NEBU. NEB SCH ×2 (07:12→10:59)
[2017-03-07] MEDS: buPROPion XL 150 MG TAB.ER.24H. PO SCH (09:20)
[2017-03-07] MEDS: DULoxetine HCL 30 MG CAPSULE.DR PO SCH (09:21)
[2017-03-07] MEDS: amLODIPine BESYLATE 10 MG TABLET PO SCH (09:22)
[2017-03-07] MEDS: GABAPENTIN 300 MG CAPSULE. PO SCH ×2 (09:22→13:31)
[2017-03-07] MEDS: PYRIDOSTIGMINE BROMIDE 60 MG TABLET PO SCH ×2 (09:22→13:30)
[2017-03-07] MEDS: DOXYCYCLINE HYCLATE 100 MG TABLET PO SCH (09:22)
[2017-03-07] MEDS: LOSARTAN POTASSIUM 50 MG TABLET. PO SCH (09:26)
[2017-03-07] MEDS ORDERED: HYDR-2762 PO (10:00)
[2017-03-07 11:00] VITALS: BP 115/49
[2017-03-07] MEDS: oxyCODONE/APAP 5/325 1 TAB TABLET PO PRN ×2 (11:15→15:10)
--- NOTE | 2017-03-07 12:35 | PDOC ---
PROGRESS NOTES Assessment Problems Medical Problems: (1) Hip dislocation, left Status: Acute Myasthenia gravis, serology pending Left superior and medial dislocation of femoral prothesis. Vitamin B12 deficiency. Plan Continue Mestinon, 60 mg qid Hold off on immune therapy for myasthenia pending the laboratory results Orthopedic treatment. Treat medical diseases. OT/PT. Possible residential unit Subjective Woke up with bloody right eye Objective Vital Signs Date Time Temp Pulse Resp B/P (MAP) Pulse Ox O2 Delivery O2 Flow Rate FiO2 03/07/17 12:21 Room Air 03/07/17 11:00 98.2 75 16 115/49 (71) 95 98.2 03/06/17 21:22 2.5 PHYSICAL EXAM Has a sub conjunctival hemorrhage of the right eye Alert. Oriented to time, place and person. PERRL. EOMI. No diplopia CN: no focal findings. Muscle tone: normal. Muscle strength: 4/5, left leg limited by pain DTR: 2+ Plantar reflex: flexor Gait: not examined in bed. Sensory exam: no abnormal findings. No cerebellar signs elicited. Review of Relevant I have reviewed the following items antonio (where applicable) has been applied. Labs Laboratory Tests Test 03/06/17 03:36 03/07/17 04:35 White Blood Count 8.7 x10^3/uL (4.0-11.0) 8.8 x10^3/uL (4.0-11.0) Red Blood Count 4.77 x10^6/uL (3.50-5.40) 5.15 x10^6/uL (3.50-5.40) Hemoglobin 11.9 g/dL (12.0-15.5) 13.1 g/dL (12.0-15.5) Hematocrit 38.1 % (36.0-47.0) 40.4 % (36.0-47.0) Mean Corpuscular Volume 80 fL (79-100) 78 fL (79-100) Mean Corpuscular Hemoglobin 25 pg (25-35) 25 pg (25-35) Mean Corpuscular Hemoglobin Concent 31 g/dL (31-37) 32 g/dL (31-37) Red Cell Distribution Width 20.8 % (11.5-14.5) 21.1 % (11.5-14.5) Platelet Count 357 x10^3/uL (140-400) 384 x10^3/uL (140-400) Neutrophils (%) (Auto) 52 % (31-73) 53 % (31-73) Lymphocytes (%) (Auto) 31 % (24-48) 29 % (24-48) Monocytes (%) (Auto) 11 % (0-9) 11 % (0-9) Eosinophils (%) (Auto) 6 % (0-3) 6 % (0-3) Basophils (%) (Auto) 1 % (0-3) 1 % (0-3) Neutrophils # (Auto) 4.5 x10^3uL (1.8-7.7) 4.7 x10^3uL (1.8-7.7) Lymphocytes # (Auto) 2.6 x10^3/uL (1.0-4.8) 2.6 x10^3/uL (1.0-4.8) Monocytes # (Auto) 1.0 x10^3/uL (0.0-1.1) 0.9 x10^3/uL (0.0-1.1) Eosinophils # (Auto) 0.5 x10^3/uL (0.0-0.7) 0.5 x10^3/uL (0.0-0.7) Basophils # (Auto) 0.1 x10^3/uL (0.0-0.2) 0.1 x10^3/uL (0.0-0.2) Sodium Level 141 mmol/L (136-145) 140 mmol/L (136-145) Potassium Level 3.3 mmol/L (3.5-5.1) 3.7 mmol/L (3.5-5.1) Chloride Level 105 mmol/L (98-107) 104 mmol/L (98-107) Carbon Dioxide Level 31 mmol/L (21-32) 32 mmol/L (21-32) Anion Gap 5 (6-14) 4 (6-14) Blood Urea Nitrogen 16 mg/dL (7-20) 15 mg/dL (7-20) Creatinine 0.7 mg/dL (0.6-1.0) 0.7 mg/dL (0.6-1.0) Estimated GFR (Cockcroft-Gault) 83.5 83.5 BUN/Creatinine Ratio 23 (6-20) 21 (6-20) Glucose Level 120 mg/dL (70-99) 83 mg/dL (70-99) Calcium Level 9.4 mg/dL (8.5-10.1) 10.0 mg/dL (8.5-10.1) Total Bilirubin 0.2 mg/dL (0.2-1.0) 0.3 mg/dL (0.2-1.0) Aspartate Amino Transf (AST/SGOT) 23 U/L (15-37) 17 U/L (15-37) Alanine Aminotransferase (ALT/SGPT) 28 U/L (14-59) 30 U/L (14-59) Alkaline Phosphatase 85 U/L (46-116) 95 U/L (46-116) Total Protein 5.9 g/dL (6.4-8.2) 6.5 g/dL (6.4-8.2) Albumin 2.4 g/dL (3.4-5.0) 2.8 g/dL (3.4-5.0) Albumin/Globulin Ratio 0.7 (1.0-1.7) 0.8 (1.0-1.7) Laboratory Tests Test 03/07/17 04:35 White Blood Count 8.8 x10^3/uL (4.0-11.0) Red Blood Count 5.15 x10^6/uL (3.50-5.40) Hemoglobin 13.1 g/dL (12.0-15.5) Hematocrit 40.4 % (36.0-47.0) Mean Corpuscular Volume 78 fL (79-100) Mean Corpuscular Hemoglobin 25 pg (25-35) Mean Corpuscular Hemoglobin Concent 32 g/dL (31-37) Red Cell Distribution Width 21.1 % (11.5-14.5) Platelet Count 384 x10^3/uL (140-400) Neutrophils (%) (Auto) 53 % (31-73) Lymphocytes (%) (Auto) 29 % (24-48) Monocytes (%) (Auto) 11 % (0-9) Eosinophils (%) (Auto) 6 % (0-3) Basophils (%) (Auto) 1 % (0-3) Neutrophils # (Auto) 4.7 x10^3uL (1.8-7.7) Lymphocytes # (Auto) 2.6 x10^3/uL (1.0-4.8) Monocytes # (Auto) 0.9 x10^3/uL (0.0-1.1) Eosinophils # (Auto) 0.5 x10^3/uL (0.0-0.7) Basophils # (Auto) 0.1 x10^3/uL (0.0-0.2) Sodium Level 140 mmol/L (136-145) Potassium Level 3.7 mmol/L (3.5-5.1) Chloride Level 104 mmol/L (98-107) Carbon Dioxide Level 32 mmol/L (21-32) Anion Gap 4 (6-14) Blood Urea Nitrogen 15 mg/dL (7-20) Creatinine 0.7 mg/dL (0.6-1.0) Estimated GFR (Cockcroft-Gault) 83.5 BUN/Creatinine Ratio 21 (6-20) Glucose Level 83 mg/dL (70-99) Calcium Level 10.0 mg/dL (8.5-10.1) Total Bilirubin 0.3 mg/dL (0.2-1.0) Aspartate Amino Transf (AST/SGOT) 17 U/L (15-37) Alanine Aminotransferase (ALT/SGPT) 30 U/L (14-59) Alkaline Phosphatase 95 U/L (46-116) Total Protein 6.5 g/dL (6.4-8.2) Albumin 2.8 g/dL (3.4-5.0) Albumin/Globulin Ratio 0.8 (1.0-1.7) Medications Current Medications Fentanyl Citrate (Fentanyl 2ml Vial) 50 mcg 1X ONCE IV Last administered on 22:15; Start 02/27/17 at 22:15; Stop 02/27/17 at 22:16; Status DC Ondansetron HCl (Zofran) 4 mg 1X ONCE IV Last administered on 02/27/17 22:15 ; Start 02/27/17 at 22:15; Stop 02/27/17 at 22:16; Status DC Sodium Chloride 1,000 ml @ 125 mls/hr 1X ONCE IV Last administered on 22:15; Start 02/27/17 at 22:15; Stop 02/28/17 at 06:14; Status DC Ondansetron HCl (Zofran) 4 mg PRN Q8HRS PRN IV NAUSEA/VOMITING Last administered on 02/28/17 09:12; Start 02/27/17 at 23:45; Stop 02/28/17 at 23:44 ; Status DC Fentanyl Citrate (Fentanyl 2ml Vial) 50 mcg PRN Q2HR PRN IV PAIN Last administered on 02/28/17 22:02; Start 02/27/17 at 23:45; Stop 02/28/17 at 23:44 ; Status DC Oxycodone/ Acetaminophen (Percocet 5/325) 1 tab PRN Q4HRS PRN PO MODERATE PAIN Last administered on 03/07/17 11:15; Start 02/28/17 at 04:00 Oxycodone/ Acetaminophen (Percocet 10/325) 1 tab PRN Q4HRS PRN PO SEVERE PAIN Last administered on 03/02/17 06:12; Start 02/28/17 at 04:00 Alprazolam (Xanax) 1 mg PRN TID PRN PO ANXIETY; Start 02/28/17 at 12:45 Amlodipine Besylate (Norvasc) 10 mg DAILY PO Last administered on 03/07/17 09: 22; Start 02/28/17 at 13:00 Atorvastatin Calcium (Lipitor) 10 mg QHS PO Last administered on 03/06/17 21: 19; Start 02/28/17 at 21:00 Daptomycin (Cubicin) 625 mg DAILY IV ; Start 03/01/17 at 09:00; Status UNV Acetaminophen/ Hydrocodone Bitart (Lortab 7.5/325) 1 tab PRN Q6HRS PRN PO MILD PAIN Last administered on 03/03/17 21:24; Start 02/28/17 at 12:45 Piperacillin Sod/ Tazobactam Sod (Zosyn) 3.375 gm Q6HRS IV ; Start 02/28/17 at 18:00; Status UNV Pyridostigmine [place] (Mestinon) 60 mg QID PO Last administered on 03/07/17 09:22; Start 02/28/17 at 13:00 Bupropion HCl (Wellbutrin Xl) 300 mg DAILY PO Last administered on 03/07/17 09 :20; Start 02/28/17 at 13:00 Duloxetine HCl (Cymbalta) 120 mg DAILY PO Last administered on 03/07/17 09:21 ; Start 02/28/17 at 13:00 Gabapentin (Neurontin) 300 mg TID PO Last administered on 03/07/17 09:22; Start 02/28/17 at 14:00 Losartan Potassium (Cozaar) 100 mg DAILY PO Last administered on 03/07/17 09: 26; Start 02/28/17 at 13:00 Doxycycline Hyclate (Vibra-Tab) 100 mg BID PO Last administered on 03/07/17 09 :22; Start 02/28/17 at 14:00 Ondansetron HCl (Zofran) 4 mg PRN Q6HRS PRN IV NAUSEA/VOMITING; Start 02/28/17 at 17:30; Stop 03/01/17 at 17:29; Status DC Fentanyl Citrate (Fentanyl 2ml Vial) 25 mcg PRN Q5MIN PRN IV MILD PAIN; Start 02/28/17 at 17:30; Stop 03/01/17 at 17:29; Status DC Fentanyl Citrate (Fentanyl 2ml Vial) 50 mcg PRN Q5MIN PRN IV MODERATE PAIN Last administered on 03/01/17 00:04; Start 02/28/17 at 17:30; Stop 03/01/17 at 17:29; Status DC Morphine Sulfate 1 mg PRN Q10MIN PRN IV SEVERE PAIN; Start 02/28/17 at 17:30; Stop 03/01/17 at 17:29; Status DC Ringer's Solution 1,000 ml @ 30 mls/hr Q24H IV Last administered on 03/01/17 06:01; Start 02/28/17 at 17:17; Stop 03/01/17 at 05:16; Status DC Lidocaine HCl (Xylocaine-Mpf 1% Vial) 2 ml 1X PRN PRN ID IV START; Start at 17:30; Stop 03/01/17 at 17:29; Status DC Hydromorphone HCl (Dilaudid) 0.5 mg PRN Q10MIN PRN IV SEV PAIN, Second choice; Start 02/28/17 at 17:30; Stop 03/01/17 at 17:29; Status DC Prochlorperazine Edisylate (Compazine) 5 mg PACU PRN PRN IV NAUSEA, MRX1; Start 02/28/17 at 17:30; Stop 03/01/17 at 17:29; Status DC Sevoflurane (Ultane) 60 ml STK-MED ONCE IH ; Start 02/28/17 at 17:21; Stop 02/28 at 17:22; Status DC Fentanyl Citrate (Fentanyl 2ml Vial) 100 mcg STK-MED ONCE .ROUTE ; Start at 17:22; Stop 02/28/17 at 17:23; Status DC Midazolam HCl (Versed) 2 mg STK-MED ONCE .ROUTE ; Start 02/28/17 at 17:22; Stop 02/28/17 at 17:23; Status DC Propofol 20 ml @ As Directed STK-MED ONCE IV ; Start 02/28/17 at 17:22; Stop at 17:23; Status DC Dexamethasone Sodium Phosphate (Decadron) 20 mg STK-MED ONCE .ROUTE ; Start at 17:23; Stop 02/28/17 at 17:24; Status DC Ondansetron HCl (Zofran) 4 mg STK-MED ONCE .ROUTE ; Start 02/28/17 at 17:23; Stop 02/28/17 at 17:24; Status DC Lidocaine HCl (Lidocaine Pf 2% Vial) 5 ml STK-MED ONCE .ROUTE ; Start 02/28/17 at 17:23; Stop 02/28/17 at 17:24; Status DC Clindamycin Phosphate 50 ml @ As Directed STK-MED ONCE IV ; Start 02/28/17 at 17 :35; Stop 02/28/17 at 17:36; Status DC Phenylephrine HCl 1 mg STK-MED ONCE IV ; Start 02/28/17 at 17:56; Stop 02/28/17 at 17:57; Status DC Clindamycin Phosphate 50 ml @ 100 mls/hr 1X ONCE IV Last administered on 02/28t 17:58; Start 02/28/17 at 17:58; Stop 02/28/17 at 19:42; Status DC Clindamycin Phosphate 50 ml @ 100 mls/hr Q6H IV Last administered on 12:42; Start 03/01/17 at 00:00; Stop 03/01/17 at 12:29; Status DC Ondansetron HCl (Zofran) 4 mg PRN Q4HRS PRN IV NAUSEA/VOMITING 1ST CHOICE Last administered on 03/04/17 11:01; Start 02/28/17 at 20:30 Dextrose (Dextrose 50%-Water Syringe) 12.5 gm PRN Q15MIN PRN IV SEE COMMENTS; Start 02/28/17 at 20:30 Iohexol (Omnipaque 300 Mg/ml) 75 ml 1X ONCE IV Last administered on 03/01/17 17:45; Start 03/01/17 at 17:45; Stop 03/01/17 at 17:46; Status DC Albuterol Sulfate (Ventolin Neb Soln) 2.5 mg RTQID NEB Last administered on 10:59; Start 03/01/17 at 21:00 Potassium Chloride (Klor-Con) 40 meq 1X ONCE PO Last administered on 17:44; Start 03/03/17 at 17:00; Stop 03/03/17 at 17:01; Status DC Cyanocobalamin (Vitamin B-12) 1,000 mcg ONCE STAT IM Last administered on 03/04 13:48; Start 03/04/17 at 13:26; Stop 03/04/17 at 13:30; Status DC Potassium Chloride (Klor-Con) 40 meq 1X ONCE PO Last administered on 09:13; Start 03/06/17 at 09:00; Stop 03/06/17 at 09:01; Status DC Acetaminophen (Tylenol) 650 mg PRN Q6HRS PRN PO FEVER; Start 03/06/17 at 14:30 Active Scripts Active Hydrocodone-Apap 7.5-325 (Hydrocodone Bit/Acetaminophen) 1 Each Tablet 1 Tab PO PRN Q6HRS PRN Amlodipine Besylate 10 Mg Tablet 10 Mg PO DAILY Reported Mestinon (Pyridostigmine [place]) 60 Mg Tablet 60 Mg PO QID Cymbalta (Duloxetine Hcl) 60 Mg Capsule.dr 2 Cap PO DAILY Gabapentin 300 Mg Capsule 300 Mg PO TID Xanax (Alprazolam) 0.5 Mg Tablet 1 Mg PO PRN TID PRN Vitamin D-3 (Cholecalciferol (Vitamin D3)) 2,000 Unit Tablet 1,000 Unit PO DAILY06 Atorvastatin Calcium 10 Mg Tablet 10 Mg PO DAILY Losartan Potassium 100 Mg Tablet 100 Mg PO DAILY Bupropion Xl (Bupropion Hcl) 300 Mg Tab.er.24h 300 Mg PO DAILY Vitals/I & O Vital Sign - Last 24 Hours 03/06/17 03/06/17 03/06/17 03/06/17 15:00 15:47 19:56 20:00 Temp 98.0 97.4 98.0 97.4 Pulse 78 86 Resp 18 18 B/P (MAP) 103/54 (70) 136/67 (90) Pulse Ox 96 96 93 O2 Delivery Room Air Room Air Room Air Room Air 03/06/17 03/06/17 03/06/17 03/07/17 21:22 22:22 23:26 03:32 Temp 97.3 97.7 97.3 97.7 Pulse 75 68 Resp 20 20 18 18 B/P (MAP) 129/56 (80) 126/51 (76) Pulse Ox 93 93 92 96 O2 Delivery Room Air Room Air Room Air O2 Flow Rate 2.5 03/07/17 03/07/17 03/07/17 03/07/17 07:00 07:13 07:45 09:22 Temp 97.7 97.7 Pulse 67 67 Resp 16 B/P (MAP) 134/57 (82) 134/57 Pulse Ox 95 95 O2 Delivery BiPAP/CPAP Room Air Room Air 03/07/17 03/07/17 03/07/17 03/07/17 09:26 11:00 11:00 11:15 Temp 98.2 98.2 Pulse 67 75 Resp 16 B/P (MAP) 134/57 115/49 (71) Pulse Ox 95 O2 Delivery Room Air Room Air Room Air 03/07/17 12:21 O2 Delivery Room Air KALLI FISHER MD Mar 07, 2017 12:35
--- NOTE | 2017-03-07 12:54 | PDOC ---
PROGRESS NOTES Subjective Subjective Problems overnight: Getting up around better with physical therapy, still concerned about negotiating activities of daily living at home with her weakness although she does want to go home Objective Vital Signs Vital Signs Date Time Temp Pulse Resp B/P (MAP) Pulse Ox O2 Delivery O2 Flow Rate FiO2 03/07/17 12:21 Room Air 03/07/17 11:00 98.2 75 16 115/49 (71) 95 98.2 03/06/17 21:22 2.5 Physical Exam Examination the left hip reveals good motion equal leg lengths intact distal neurovascular status Slight serous drainage at the superior aspect of the wound no redness or erythema Labs Laboratory Tests Test 03/06/17 03:36 03/07/17 04:35 White Blood Count 8.7 x10^3/uL (4.0-11.0) 8.8 x10^3/uL (4.0-11.0) Red Blood Count 4.77 x10^6/uL (3.50-5.40) 5.15 x10^6/uL (3.50-5.40) Hemoglobin 11.9 g/dL (12.0-15.5) 13.1 g/dL (12.0-15.5) Hematocrit 38.1 % (36.0-47.0) 40.4 % (36.0-47.0) Mean Corpuscular Volume 80 fL (79-100) 78 fL (79-100) Mean Corpuscular Hemoglobin 25 pg (25-35) 25 pg (25-35) Mean Corpuscular Hemoglobin Concent 31 g/dL (31-37) 32 g/dL (31-37) Red Cell Distribution Width 20.8 % (11.5-14.5) 21.1 % (11.5-14.5) Platelet Count 357 x10^3/uL (140-400) 384 x10^3/uL (140-400) Neutrophils (%) (Auto) 52 % (31-73) 53 % (31-73) Lymphocytes (%) (Auto) 31 % (24-48) 29 % (24-48) Monocytes (%) (Auto) 11 % (0-9) 11 % (0-9) Eosinophils (%) (Auto) 6 % (0-3) 6 % (0-3) Basophils (%) (Auto) 1 % (0-3) 1 % (0-3) Neutrophils # (Auto) 4.5 x10^3uL (1.8-7.7) 4.7 x10^3uL (1.8-7.7) Lymphocytes # (Auto) 2.6 x10^3/uL (1.0-4.8) 2.6 x10^3/uL (1.0-4.8) Monocytes # (Auto) 1.0 x10^3/uL (0.0-1.1) 0.9 x10^3/uL (0.0-1.1) Eosinophils # (Auto) 0.5 x10^3/uL (0.0-0.7) 0.5 x10^3/uL (0.0-0.7) Basophils # (Auto) 0.1 x10^3/uL (0.0-0.2) 0.1 x10^3/uL (0.0-0.2) Sodium Level 141 mmol/L (136-145) 140 mmol/L (136-145) Potassium Level 3.3 mmol/L (3.5-5.1) 3.7 mmol/L (3.5-5.1) Chloride Level 105 mmol/L (98-107) 104 mmol/L (98-107) Carbon Dioxide Level 31 mmol/L (21-32) 32 mmol/L (21-32) Anion Gap 5 (6-14) 4 (6-14) Blood Urea Nitrogen 16 mg/dL (7-20) 15 mg/dL (7-20) Creatinine 0.7 mg/dL (0.6-1.0) 0.7 mg/dL (0.6-1.0) Estimated GFR (Cockcroft-Gault) 83.5 83.5 BUN/Creatinine Ratio 23 (6-20) 21 (6-20) Glucose Level 120 mg/dL (70-99) 83 mg/dL (70-99) Calcium Level 9.4 mg/dL (8.5-10.1) 10.0 mg/dL (8.5-10.1) Total Bilirubin 0.2 mg/dL (0.2-1.0) 0.3 mg/dL (0.2-1.0) Aspartate Amino Transf (AST/SGOT) 23 U/L (15-37) 17 U/L (15-37) Alanine Aminotransferase (ALT/SGPT) 28 U/L (14-59) 30 U/L (14-59) Alkaline Phosphatase 85 U/L (46-116) 95 U/L (46-116) Total Protein 5.9 g/dL (6.4-8.2) 6.5 g/dL (6.4-8.2) Albumin 2.4 g/dL (3.4-5.0) 2.8 g/dL (3.4-5.0) Albumin/Globulin Ratio 0.7 (1.0-1.7) 0.8 (1.0-1.7) Laboratory Tests Test 03/07/17 04:35 White Blood Count 8.8 x10^3/uL (4.0-11.0) Red Blood Count 5.15 x10^6/uL (3.50-5.40) Hemoglobin 13.1 g/dL (12.0-15.5) Hematocrit 40.4 % (36.0-47.0) Mean Corpuscular Volume 78 fL (79-100) Mean Corpuscular Hemoglobin 25 pg (25-35) Mean Corpuscular Hemoglobin Concent 32 g/dL (31-37) Red Cell Distribution Width 21.1 % (11.5-14.5) Platelet Count 384 x10^3/uL (140-400) Neutrophils (%) (Auto) 53 % (31-73) Lymphocytes (%) (Auto) 29 % (24-48) Monocytes (%) (Auto) 11 % (0-9) Eosinophils (%) (Auto) 6 % (0-3) Basophils (%) (Auto) 1 % (0-3) Neutrophils # (Auto) 4.7 x10^3uL (1.8-7.7) Lymphocytes # (Auto) 2.6 x10^3/uL (1.0-4.8) Monocytes # (Auto) 0.9 x10^3/uL (0.0-1.1) Eosinophils # (Auto) 0.5 x10^3/uL (0.0-0.7) Basophils # (Auto) 0.1 x10^3/uL (0.0-0.2) Sodium Level 140 mmol/L (136-145) Potassium Level 3.7 mmol/L (3.5-5.1) Chloride Level 104 mmol/L (98-107) Carbon Dioxide Level 32 mmol/L (21-32) Anion Gap 4 (6-14) Blood Urea Nitrogen 15 mg/dL (7-20) Creatinine 0.7 mg/dL (0.6-1.0) Estimated GFR (Cockcroft-Gault) 83.5 BUN/Creatinine Ratio 21 (6-20) Glucose Level 83 mg/dL (70-99) Calcium Level 10.0 mg/dL (8.5-10.1) Total Bilirubin 0.3 mg/dL (0.2-1.0) Aspartate Amino Transf (AST/SGOT) 17 U/L (15-37) Alanine Aminotransferase (ALT/SGPT) 30 U/L (14-59) Alkaline Phosphatase 95 U/L (46-116) Total Protein 6.5 g/dL (6.4-8.2) Albumin 2.8 g/dL (3.4-5.0) Albumin/Globulin Ratio 0.8 (1.0-1.7) Assessment Assessment POD# [], S/P [open reduction left hip dislocation] Problems: Plan Plan of Care Continue to advance activities as tolerated Dressing was changed to a adarsh suction dressing today. She has an extra one to take with her to the rehabilitation facility if it needs to be changed Follow-up Dr. Henriquez 10-14 days May shower as long as dressing is intact JAYLEEN HENRIQUEZ MD Mar 07, 2017 12:54
--- NOTE | 2017-03-07 13:13 | PDOC3 ---
Discharge Summary [facility] Date of Admission: Feb 28, 2017 Discharge Date: Mar 07, 2017 Admitting Diagnosis recurrent L hip dislocation post ORIF 02/28 h/o Pericarditis Anemia Obesity CAD HTN Hyperlipidemia ZENON Peripheral neuropathy vitb12 deficiency hypokalemia ?myasthenia gravis OA right subconjunctival hemarrhage Problems: Final Diagnosis CONSULTS neuro ortho Brief Hospital Course Ms. Ramey is a 66 old F, with h/o left hip replacement and dislocation, came for left hip pain and difficulty to walk, underwent ORIF for left hip dislocation. wound heals well, will add adarsh wound dressing today before dc. She also was diagnosed possible MG, on pyrostigmine now. other labs still pending with neuro, so not on plasmapheresis for now cont vitb12 IM qM, pt wants injection. ight eye has subconjunctival hemarrhage, no itchy or pain or discharge, vision ok. fu with her opthal as outpt. dc to SNF DC TIME 35min General: Alert, Oriented X3, Cooperative, No acute distress. right eye has subconjunctival hemarrhage, no itchy or pain or discharge, vision ok. Heart: Regular rate, Normal S1, Normal S2, No murmurs Lungs: Clear Abdomen: Normal bowel sounds, No tenderness Extremities: No clubbing, No cyanosis, No edema, Other (L hip incison covered with clean bandage) Skin: No rashes, No breakdown, No significant lesion Patient History: FH: Hodgkins disease 32 MOTHER Family history: Autoimmune disease (situation) G8 DAUGHTER Family history: Breast disease (situation) 32 MOTHER Family history: Cardiomyopathy (situation) 32 MOTHER Family history: Cardiovascular disease (situation) 32 MOTHER Family history: Gallbladder disease (situation) 33 FATHER Family history: Gastrointestinal disease (situation) 33 FATHER Family history: Hypertension (situation) 32 MOTHER Polymyositis G8 DAUGHTER Problems: Disposition SNF CONDITION AT DISCHARGE: Improved, Stable Diet regular Scheduled Amlodipine Besylate (Amlodipine Besylate), 10 MG PO DAILY Atorvastatin Calcium (Atorvastatin Calcium), 10 MG PO DAILY, (Reported) Bupropion Hcl (Bupropion Xl), 300 MG PO DAILY, (Reported) Cholecalciferol (Vitamin D3) (Vitamin D-3), 1,000 UNIT PO DAILY06, (Reported) Duloxetine Hcl (Cymbalta), 2 CAP PO DAILY, (Reported) Gabapentin (Gabapentin), 300 MG PO TID, (Reported) Losartan Potassium (Losartan Potassium), 100 MG PO DAILY, (Reported) Pyridostigmine [place] (Mestinon), 60 MG PO QID, (Reported) Scheduled PRN Alprazolam (Xanax), 1 MG PO PRN TID PRN for ANXIETY, (Reported) Hydrocodone Bit/Acetaminophen (Hydrocodone-Apap 7.5-325 ), 1 TAB PO PRN Q6HRS PRN for PAIN Discontinued Medications Daptomycin (Cubicin), 625 MG IV DAILY, (Reported) Doxycycline Hyclate (Doxycycline Hyclate), 100 MG PO BID Piperacillin Sodium/Tazobactam (Zosyn 3.375 Gram Vial), 3.375 GM IV Q6HRS [EquateMultiVitLutein], 1 TAB PO DAILY, (Reported) [Warfarin Sodium], 1 EACH MC PRN DAILY PRN for SEE COMMENTS [m], (Reported) Discontinued Reason: DC Follow Up fu with ortho in 2 weeks GIRISH BURT MD Mar 07, 2017 13:13
== END 2017-03-07 16:15 | DRG 467 ==
LOC: ER 20:29 → 4 NORTH 23:45 → OBSVTOIN 02-28 10:48
PROVIDERS: ADMIT Internal Medicine Hematology & Oncology; ATTEND Internal Medicine Hematology & Oncology
PROC: 0SUE09Z Supplement Left Hip Joint, Acetabular Surface with Liner, Open Approach (ICD-10-PCS; 2017-02-28)
PROC: 0SRS0JZ Replacement of Left Hip Joint, Femoral Surface with Synthetic Substitute, Open Approach (ICD-10-PCS; 2017-02-28)
PROC: 0SPS0JZ Removal of Synthetic Substitute from Left Hip Joint, Femoral Surface, Open Approach (ICD-10-PCS; 2017-02-28)
PROC: 0SCB0ZZ Extirpation of Matter from Left Hip Joint, Open Approach (ICD-10-PCS; 2017-02-28)
PROC: 0SPB09Z Removal of Liner from Left Hip Joint, Open Approach (ICD-10-PCS; principal; 2017-02-28 19:15)
DX: M24.452 Recurrent dislocation, left hip (principal); J96.10 Chronic respiratory failure, unspecified whether with hypoxia or hypercapnia; I30.1 Infective pericarditis; E11.42 Type 2 diabetes mellitus with diabetic polyneuropathy; G70.00 Myasthenia gravis without (acute) exacerbation; F32.9 Major depressive disorder, single episode, unspecified; D64.9 Anemia, unspecified; E53.8 Deficiency of other specified B group vitamins; E78.00 Pure hypercholesterolemia, unspecified; E78.5 Hyperlipidemia, unspecified; E87.6 Hypokalemia; G47.33 Obstructive sleep apnea (adult) (pediatric); I10 Essential (primary) hypertension; I25.10 Atherosclerotic heart disease of native coronary artery without angina pectoris; G89.29 Other chronic pain; M54.9 Dorsalgia, unspecified; E66.01 Morbid (severe) obesity due to excess calories; M19.90 Unspecified osteoarthritis, unspecified site; K90.0 Celiac disease; Z96.612 Presence of left artificial shoulder joint; Z96.642 Presence of left artificial hip joint; Z87.442 Personal history of urinary calculi; Z90.49 Acquired absence of other specified parts of digestive tract; Z88.0 Allergy status to penicillin; Z88.2 Allergy status to sulfonamides; Z68.37 Body mass index [BMI] 37.0-37.9, adult; Z90.710 Acquired absence of both cervix and uterus; Z82.49 Family history of ischemic heart disease and other diseases of the circulatory system
CPT/HCPCS: 36415; 70450; 71010; 71275; 73502; 80048; 80053; 82550; 82962; 83735; 84484; 85025; 93005; 94250; 94640; 94760; 96361; 96374; 96375; C1713; G0238; G0378; G0379; J1100; J2250; J2370; J2405; J2704; J3010; J3420; J3490; J7030; J7120; J7613; Q9967; 97110; 97116; 97530; 97535; 99285-25; C1776; J2001

== ENCOUNTER 2017-03-27 16:33 | Inpatient (IN) | payer MEDICARE, BC ==
[~2017-03-27] VITALS: Ht 162.6 cm; Wt 95.3 kg
[~2017-03-27 16:33] MED LIST changes: +PYRI60TA2 PO
[2017-03-27 17:49] LABS: BASO # 0.1 x10^3/uL (0.0-0.2); BASO % 1 % (0-3); EOS % 4 % (0-3); HEMATOCRIT 43.4 % (36.0-47.0); HEMOGLOBIN 13.9 g/dL (12.0-15.5); LYMPH # 2.5 x10^3/uL (1.0-4.8); LYMPH % 23 % (24-48); MEAN CORPUSCULAR HEMOGLOBIN 25 pg (25-35); MEAN CORPUSCULAR HGB CONC 32 g/dL (31-37); MEAN CORPUSCULAR VOLUME 80 fL (79-100); MONO % 7 % (0-9); NEUT % 66 % (31-73); PLATELET COUNT 429 x10^3/uL (140-400); RED BLOOD COUNT 5.46 x10^6/uL (3.50-5.40); RED CELL DISTRIBUTION WIDTH 19.3 % (11.5-14.5); WHITE BLOOD COUNT 10.8 x10^3/uL (4.0-11.0)
[2017-03-27 18:05] LABS: CALCIUM 9.9 mg/dL (8.5-10.1); CREATININE 0.7 mg/dL (0.6-1.0); GFR 83.5; POTASSIUM 3.7 mmol/L (3.5-5.1)
--- NOTE | 2017-03-27 18:06 | EKG ---
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
[2017-03-27 18:17] LABS: ALBUMIN 3.2 g/dL (3.4-5.0); ALBUMIN/GLOBULIN RATIO 0.7 (1.0-1.7); TOTAL BILIRUBIN 0.2 mg/dL (0.2-1.0); TOTAL PROTEIN 7.5 g/dL (6.4-8.2)
[2017-03-27 18:21] LABS: BILIRUBIN,URINE NEGATIVE (NEG); GLUCOSE,URINE NEGATIVE (NEG); NITRITE,URINE NEGATIVE (NEG); PROTEIN,URINE NEGATIVE (NEG-TRACE); UROBILINOGEN,URINE 0.2 mg/dL (0.2 mg/dL)
--- NOTE | 2017-03-27 18:35 | PDOC1 ---
History and Physical Date of Admission Date of Admission 03/27/17 Identification/Chief Complaint Chief Complaint exts weakness Problems: Source Source: Chart review, Patient History of Present Illness History of Present Illness Ms. Ramey is a 66 old F, with h/o left hip replacement and dislocation, MG, recently dced from hosp 1month ago to rehab for PTOT, came to ER today for ext weakness. SHe said she was doing ok in the rehab, was dced home about 2-3 weeks ago. She is living with her daughter who works daily. Saw dr. Dao SENIOR FOREMAN in the office and the hip sutures and wound vac were removed, not much hip pain now. She started to feel bl upper and lower ext weakness , worse than before, hard to hold cups or ambulate with her walker, hard to do some basic activities such as taking a bath. She is taking pyridostigmine. she said dr. Ordoñez called her when she was in rehab, told her MG is diagnosed, but didnot change treatment regimen, she made an appt with dr. Hussein, but in Nov. she came to ER since she cannot see neuro now and feels hard to manage at home with the weakness. also notice some slurry speech today, mild swallow problem sometimes. When i talked to her in ER, no speech problem. otherwise cont having bl poor eyesight, didnot fu with ophthal yet. Denies fever , chills, sob, chest pain. Past Medical History Cardiovascular: CAD, Other Pulmonary: Asthma CENTRAL NERVOUS SYSTEM: Periperal neuropathy Endocrine: Diabetes Past Surgical History Past Surgical History: Appendectomy, Arthroscopy, Total hip replacement, Hysterectomy, Other Family History Family History: Hypertension Social History Smoke: No ALCOHOL: none Drugs: None Allergies Allergies Allergies Coded Allergies Type Severity Reaction Last Updated Verified Penicillins Allergy Intermediate Rash 02/28/17 Yes ciprofloxacin Allergy Intermediate 03/27/17 Yes Sulfa (Sulfonamide Antibiotics) Adverse Reaction Intermediate Nausea 02/28/17 Yes ROS Review of System CONSTITUTIONAL: No fever or chills EYES: No recent changes SKIN: No rash or itching CARDIOVASCULAR: No chest pain, syncope, palpitations, or edema RESPIRATORY: No SOB or cough GASTROINTESTINAL: No nausea, vomiting or abdominal pain NEUROLOGICAL: No headaches or weakness ENDOCRINE: No cold or heat intolerance GENITOURINARY: No urgency or frequency of urination MUSCULOSKELETAL: No back pain or joint pain LYMPHATICS: No enlarged lymph nodes PSYCHIATRIC: No anxiety or depression Physical Exam Physical Exam GEN.: No apparent distress. Alert and oriented. HEENT: Head is normocephalic, atraumatic NECK: Supple. LUNGS: Clear to auscultation. HEART: RRR, S1, S2 present. Peripheral pulses intact ABDOMEN: Soft, nontender. Positive bowel sounds. EXTREMITIES: Without any cyanosis. bl upper ext mild weakness, strength 3- 4/5. Bl leg mild weakness, strength 4/5. symmetric. NEUROLOGIC: Normal speech, normal tone PSYCHIATRIC: Normal affect, normal mood. SKIN: No ulcerations Vitals Vitals Vital Signs Date Time Temp Pulse Resp B/P (MAP) Pulse Ox O2 Delivery O2 Flow Rate FiO2 03/27/17 16:50 97.9 74 21 143/71 (95) 93 Room Air 97.9 Labs Labs Laboratory Tests Test 03/27/17 16:55 03/27/17 17:34 White Blood Count 10.8 x10^3/uL (4.0-11.0) Red Blood Count 5.46 x10^6/uL (3.50-5.40) Hemoglobin 13.9 g/dL (12.0-15.5) Hematocrit 43.4 % (36.0-47.0) Mean Corpuscular Volume 80 fL (79-100) Mean Corpuscular Hemoglobin 25 pg (25-35) Mean Corpuscular Hemoglobin Concent 32 g/dL (31-37) Red Cell Distribution Width 19.3 % (11.5-14.5) Platelet Count 429 x10^3/uL (140-400) Neutrophils (%) (Auto) 66 % (31-73) Lymphocytes (%) (Auto) 23 % (24-48) Monocytes (%) (Auto) 7 % (0-9) Eosinophils (%) (Auto) 4 % (0-3) Basophils (%) (Auto) 1 % (0-3) Neutrophils # (Auto) 7.1 x10^3uL (1.8-7.7) Lymphocytes # (Auto) 2.5 x10^3/uL (1.0-4.8) Monocytes # (Auto) 0.7 x10^3/uL (0.0-1.1) Eosinophils # (Auto) 0.4 x10^3/uL (0.0-0.7) Basophils # (Auto) 0.1 x10^3/uL (0.0-0.2) Thyroid Stimulating Hormone (TSH) 1.990 uIU/mL (0.358-3.74) Sodium Level 141 mmol/L (136-145) Potassium Level 3.7 mmol/L (3.5-5.1) Chloride Level 104 mmol/L (98-107) Carbon Dioxide Level 30 mmol/L (21-32) Anion Gap 7 (6-14) Blood Urea Nitrogen 22 mg/dL (7-20) Creatinine 0.7 mg/dL (0.6-1.0) Estimated GFR (Cockcroft-Gault) 83.5 BUN/Creatinine Ratio 31 (6-20) Glucose Level 109 mg/dL (70-99) Calcium Level 9.9 mg/dL (8.5-10.1) Total Bilirubin 0.2 mg/dL (0.2-1.0) Aspartate Amino Transf (AST/SGOT) 22 U/L (15-37) Alanine Aminotransferase (ALT/SGPT) 25 U/L (14-59) Alkaline Phosphatase 110 U/L (46-116) Total Protein 7.5 g/dL (6.4-8.2) Albumin 3.2 g/dL (3.4-5.0) Albumin/Globulin Ratio 0.7 (1.0-1.7) Laboratory Tests Test 03/27/17 16:55 03/27/17 17:34 White Blood Count 10.8 x10^3/uL (4.0-11.0) Red Blood Count 5.46 x10^6/uL (3.50-5.40) Hemoglobin 13.9 g/dL (12.0-15.5) Hematocrit 43.4 % (36.0-47.0) Mean Corpuscular Volume 80 fL (79-100) Mean Corpuscular Hemoglobin 25 pg (25-35) Mean Corpuscular Hemoglobin Concent 32 g/dL (31-37) Red Cell Distribution Width 19.3 % (11.5-14.5) Platelet Count 429 x10^3/uL (140-400) Neutrophils (%) (Auto) 66 % (31-73) Lymphocytes (%) (Auto) 23 % (24-48) Monocytes (%) (Auto) 7 % (0-9) Eosinophils (%) (Auto) 4 % (0-3) Basophils (%) (Auto) 1 % (0-3) Neutrophils # (Auto) 7.1 x10^3uL (1.8-7.7) Lymphocytes # (Auto) 2.5 x10^3/uL (1.0-4.8) Monocytes # (Auto) 0.7 x10^3/uL (0.0-1.1) Eosinophils # (Auto) 0.4 x10^3/uL (0.0-0.7) Basophils # (Auto) 0.1 x10^3/uL (0.0-0.2) Thyroid Stimulating Hormone (TSH) 1.990 uIU/mL (0.358-3.74) Sodium Level 141 mmol/L (136-145) Potassium Level 3.7 mmol/L (3.5-5.1) Chloride Level 104 mmol/L (98-107) Carbon Dioxide Level 30 mmol/L (21-32) Anion Gap 7 (6-14) Blood Urea Nitrogen 22 mg/dL (7-20) Creatinine 0.7 mg/dL (0.6-1.0) Estimated GFR (Cockcroft-Gault) 83.5 BUN/Creatinine Ratio 31 (6-20) Glucose Level 109 mg/dL (70-99) Calcium Level 9.9 mg/dL (8.5-10.1) Total Bilirubin 0.2 mg/dL (0.2-1.0) Aspartate Amino Transf (AST/SGOT) 22 U/L (15-37) Alanine Aminotransferase (ALT/SGPT) 25 U/L (14-59) Alkaline Phosphatase 110 U/L (46-116) Total Protein 7.5 g/dL (6.4-8.2) Albumin 3.2 g/dL (3.4-5.0) Albumin/Globulin Ratio 0.7 (1.0-1.7) VTE Prophylaxis Ordered VTE Prophylaxis Devices: Yes VTE Pharmacological Prophylaxi: Yes Assessment/Plan Assessment/Plan ext weakness with myasthenia gravis recurrent L hip dislocation post ORIF 02/28 h/o Pericarditis Anemia Obesity h/o CAD HTN Hyperlipidemia ZENON Peripheral neuropathy vitb12 deficiency hypokalemia OA right subconjunctival hemarrhage plan: neuro consult cont pyridostigmine for now cont home meds dvt ppx PTOT may need SW for rehab again if weakness not improving admit 2 nights GIRISH BURT MD Mar 27, 2017 18:35
[2017-03-27] MEDS ORDERED: traMADol 50 MG TABLET PO PRN (18:45)
[2017-03-27] MEDS ORDERED: MORPHINE SULFATE 2 MG/ML DISP.SYRIN. IV PRN (18:45)
[2017-03-27] MEDS ORDERED: hydrALAZINE 20 MG/ML VIAL. IVP PRN (18:45)
[2017-03-27] MEDS ORDERED: DOCUSATE SODIUM 100 MG CAPSULE. PO PRN (18:45)
[2017-03-27] MEDS ORDERED: ACETAMINOPHEN 325 MG TABLET. PO PRN (18:45)
[2017-03-27] MEDS ORDERED: ONDANSETRON PF 4 MG/2 ML VIAL. IV PRN (18:45)
[2017-03-27 18:48] LABS: BACTERIA,URINE FEW /HPF (0-FEW); RBC,URINE 0 /HPF (0-2); SQUAMOUS EPITHELIAL CELL,UR OCC /LPF
[2017-03-27 19:59] VITALS: BP 113/61
--- NOTE | 2017-03-27 20:33 | PHYS DOC ---
Past Medical History Past Medical History: Depression, High Cholesterol, Hypertension, Kidney Stone , Other Additional Past Medical Histor: obesity, celiac, sleep apnea,vision problems, MYASTHENIA GRAVIS Past Surgical History: Cholecystectomy, Hip Replacement Additional Past Surgical Histo: pericardial window,left shoulder replacement, hernia repair,left ovary tumo Alcohol Use: None Drug Use: None Adult General Chief Complaint Chief Complaint: SLURRED SPEECH [facility] HPI Patient is a 66 year old female with diagnosis of myasthenia gravis currently on 60 mg of Mestinon 3 times a day resents with increased muscle weakness which has been progressive over the past 2 days. Patient states she is unable to walk 3 feet without assistance. She also reports persistence of high weakness and double vision. Denies redness of breath. Denies fever, cough, nausea, chest pain , abdominal pain. Denies urinary frequency and urgency. She states that she does have frequent urinary tract infections was recently treated for urinary tract infection during her last hospitalization. No other acute symptoms or complaints. Patient is accompanied at bedside by her daughter who also expresses concerns of the mother safety and family's inability to care for the patient. Patient's aircraft avionics technician is Dr. Hussein.[] Review of Systems Review of Systems ROS as per HPI. All other review symptoms are negative Allergies Allergies Allergies Coded Allergies Type Severity Reaction Last Updated Verified Penicillins Allergy Intermediate Rash 02/28/17 Yes ciprofloxacin Allergy Intermediate 03/27/17 Yes Sulfa (Sulfonamide Antibiotics) Adverse Reaction Intermediate Nausea 02/28/17 Yes Physical Exam Physical Exam Constitutional: No acute distress, generally weak appearing. Flat affect.[] HENT: Normocephalic, atraumatic, bilateral external ears normal, oropharynx moist, no oral exudates, nose normal. [] Eyes: Ptosis, no nystagmus, R subconjunctival hemorrhage. [] Neck: Normal range of motion, no tenderness, supple, no stridor. [] Cardiovascular:Heart rate regular rhythm, no murmur [] Lungs & Thorax: Bilateral breath sounds clear to auscultation [] Abdomen: Bowel sounds normal, soft, no tenderness. [] Skin: Warm, dry, no erythema, no rash. [] Back: No tenderness. [] Extremities: No tenderness, no cyanosis, no clubbing, ROM intact, no edema. [] Neurologic: Alert and oriented X 3, persistent motor weakness all extremities. [ ]al. [] Current Patient Data Vital Signs Vital Signs Date Time Temp Pulse Resp B/P (MAP) Pulse Ox O2 Delivery O2 Flow Rate FiO2 03/27/17 18:30 68 22 105/61 (76) 93 Room Air 03/27/17 16:50 97.9 97.9 Lab Values Laboratory Tests Test 03/27/17 16:55 03/27/17 17:34 03/27/17 17:55 White Blood Count 10.8 x10^3/uL (4.0-11.0) Red Blood Count 5.46 x10^6/uL (3.50-5.40) H Hemoglobin 13.9 g/dL (12.0-15.5) Hematocrit 43.4 % (36.0-47.0) Mean Corpuscular Volume 80 fL (79-100) Mean Corpuscular Hemoglobin 25 pg (25-35) Mean Corpuscular Hemoglobin Concent 32 g/dL (31-37) Red Cell Distribution Width 19.3 % (11.5-14.5) H Platelet Count 429 x10^3/uL (140-400) H Neutrophils (%) (Auto) 66 % (31-73) Lymphocytes (%) (Auto) 23 % (24-48) L Monocytes (%) (Auto) 7 % (0-9) Eosinophils (%) (Auto) 4 % (0-3) H Basophils (%) (Auto) 1 % (0-3) Neutrophils # (Auto) 7.1 x10^3uL (1.8-7.7) Lymphocytes # (Auto) 2.5 x10^3/uL (1.0-4.8) Monocytes # (Auto) 0.7 x10^3/uL (0.0-1.1) Eosinophils # (Auto) 0.4 x10^3/uL (0.0-0.7) Basophils # (Auto) 0.1 x10^3/uL (0.0-0.2) [id number]-Gtr-[id number]-Type Natriuretic Peptide 52 pg/mL (0-124) Thyroid Stimulating Hormone (TSH) 1.990 uIU/mL (0.358-3.74) Sodium Level 141 mmol/L (136-145) Potassium Level 3.7 mmol/L (3.5-5.1) Chloride Level 104 mmol/L (98-107) Carbon Dioxide Level 30 mmol/L (21-32) Anion Gap 7 (6-14) Blood Urea Nitrogen 22 mg/dL (7-20) H Creatinine 0.7 mg/dL (0.6-1.0) Estimated GFR (Cockcroft-Gault) 83.5 BUN/Creatinine Ratio 31 (6-20) H Glucose Level 109 mg/dL (70-99) H Calcium Level 9.9 mg/dL (8.5-10.1) Total Bilirubin 0.2 mg/dL (0.2-1.0) Aspartate Amino Transferase (AST) 22 U/L (15-37) Alanine Aminotransferase (ALT) 25 U/L (14-59) Alkaline Phosphatase 110 U/L (46-116) Total Protein 7.5 g/dL (6.4-8.2) Albumin 3.2 g/dL (3.4-5.0) L Albumin/Globulin Ratio 0.7 (1.0-1.7) L Urine Color Yellow Urine Clarity Clear Urine pH 6.0 Urine Specific [place] 1.025 Urine Protein Negative mg/dL (NEG-TRACE) Urine Glucose (UA) Negative mg/dL (NEG) Urine Ketones (Stick) Negative mg/dL (NEG) Urine Blood Negative (NEG) Urine Nitrite Negative (NEG) Urine Bilirubin Negative (NEG) Urine Urobilinogen Dipstick 0.2 mg/dL (0.2 mg/dL) Urine Leukocyte Esterase Large (NEG) Urine RBC 0 /HPF (0-2) Urine WBC 11-20 /HPF (0-4) Urine Squamous Epithelial Cells Occ /LPF Urine Bacteria Few /HPF (0-FEW) Urine Mucus Slight /LPF Laboratory Tests 03/27/17 16:55 Laboratory Tests 03/27/17 17:34 EKG EKG [] Radiology/Procedures Radiology/Procedures [] Course & Med Decision Making Course & Med Decision Making Pertinent Labs and Imaging studies reviewed. (See chart for details) [UTI and hyperglycemia contributing to patient's myasthenia exacerbation. Empiric antibiotics started. Dr. solorzano in the ED for admission and orders.] Dragon Disclaimer Dragon Disclaimer This electronic medical record was generated, in whole or in part, using a voice recognition dictation system. Departure Departure Impression: Primary Impression: Urinary tract infection Additional Impressions: Myasthenia exacerbation Hyperglycemia Disposition: 09 ADMITTED INPATIENT Admitting Physician: Huseyin Solorzano Condition: STABLE Problem Qualifiers KALPESH WHITAKER DO Mar 27, 2017 20:32
[2017-03-27] MEDS: GABAPENTIN 300 MG CAPSULE. PO SCH (21:08)
[2017-03-27] MEDS: PYRIDOSTIGMINE BROMIDE 60 MG TABLET PO SCH (21:08)
[2017-03-27] MEDS: ENOXAPARIN 40 MG/0.4 ML SYRINGE. SQ SCH (21:09)
[2017-03-27 22:59] VITALS: BP 104/55
[2017-03-28] MEDS: ALPRAZolam 1 MG TABLET PO PRN (01:40)
[2017-03-28 03:40] VITALS: BP 113/58
[2017-03-28 04:51] LABS: BASO # 0.1 x10^3/uL (0.0-0.2); BASO % 1 % (0-3); EOS % 6 % (0-3); HEMATOCRIT 39.4 % (36.0-47.0); HEMOGLOBIN 12.4 g/dL (12.0-15.5); LYMPH # 2.9 x10^3/uL (1.0-4.8); LYMPH % 35 % (24-48); MEAN CORPUSCULAR HEMOGLOBIN 25 pg (25-35); MEAN CORPUSCULAR HGB CONC 32 g/dL (31-37); MEAN CORPUSCULAR VOLUME 80 fL (79-100); MONO % 10 % (0-9); NEUT % 48 % (31-73); PLATELET COUNT 368 x10^3/uL (140-400); RED BLOOD COUNT 4.93 x10^6/uL (3.50-5.40); RED CELL DISTRIBUTION WIDTH 19.3 % (11.5-14.5); WHITE BLOOD COUNT 8.2 x10^3/uL (4.0-11.0)
[2017-03-28 05:18] LABS: CALCIUM 9.5 mg/dL (8.5-10.1); CREATININE 0.7 mg/dL (0.6-1.0); GFR 83.5; POTASSIUM 3.3 mmol/L (3.5-5.1)
[2017-03-28 07:00] VITALS: BP 121/72
[2017-03-28] MEDS: GABAPENTIN 300 MG CAPSULE. PO SCH ×3 (08:55→21:30)
[2017-03-28] MEDS: CHOLECALCIFEROL (VITAMIN D3) 1,000 UNIT TABLET PO SCH (08:55)
[2017-03-28] MEDS: buPROPion XL 150 MG TAB.ER.24H. PO SCH (08:55)
[2017-03-28] MEDS: PYRIDOSTIGMINE BROMIDE 60 MG TABLET PO SCH ×4 (08:56→21:30)
[2017-03-28] MEDS: amLODIPine BESYLATE 10 MG TABLET PO SCH (08:56)
[2017-03-28] MEDS: DULoxetine HCL 30 MG CAPSULE.DR PO SCH (08:56)
[2017-03-28] MEDS: LOSARTAN POTASSIUM 50 MG TABLET. PO SCH (08:57)
--- NOTE | 2017-03-28 09:03 | RAD ---
Portable chest, 03/27/2017: History: Shortness of breath Comparison is made to a study from 02/27/2017. The heart size and pulmonary vascularity are normal. There is calcific plaquing of aorta. There is mild chronic elevation of the right hemidiaphragm. No acute infiltrates are seen. There is no evidence of pleural fluid. There are scattered spurs in the spine. A left shoulder prosthesis is in place. Moderate arthritic change is evident at the right shoulder. IMPRESSION: No acute cardiopulmonary abnormality is detected.
[2017-03-28 11:00] VITALS: BP 124/64
[2017-03-28] MEDS ORDERED: POTASSIUM CHLORIDE 20 MEQ TABLET.ER. PO ONE (12:00)
--- NOTE | 2017-03-28 12:00 | PDOC2 ---
CONSULT Date of Consult Date of Consult DATE: 03/28/17 TIME: 11:57 Reason for Consult Reason for Consult: TPE Referring Physician Referring Physician: JAVED Identification/Chief Complaint Chief Complaint UPPER AND LE WEAKNESS Problems: Source Source: Chart review, Patient History of Present Illness Reason for Visit: THIS IS A 66 YR OLD WITH BILATERAL UPPER AND LE WEAKNESS. SHE HAS A DX OF MG AND NOW HAS EXACERBATION. I WAS ASKED TO SEE HER BY NEUROLOGY TO PERFORM TPE Past Medical History Cardiovascular: CAD, Other Pulmonary: Asthma CENTRAL NERVOUS SYSTEM: Periperal neuropathy Musculoskeletal: low back pain, Osteoarthritis Endocrine: Diabetes Past Surgical History Past Surgical History: Appendectomy, Arthroscopy, Total hip replacement, Hysterectomy, Other Family History Family History: Hypertension Social History No ALCOHOL: none Drugs: None Current Problem List Problem List Problems Medical Problems: (1) Hyperglycemia Status: Acute (2) Urinary tract infection Status: Acute Current Medications Current Medications Current Medications Alprazolam (Xanax) 1 mg PRN Q8HRS PRN PO ANXIETY Last administered on 01:40; Start 03/27/17 at 18:45 Amlodipine Besylate (Norvasc) 10 mg DAILY PO Last administered on 03/28/17 08 :56; Start 03/28/17 at 09:00 Atorvastatin Calcium (Lipitor) 10 mg QHS PO ; Start 03/28/17 at 21:00 Acetaminophen/ Hydrocodone Bitart (Lortab 7.5/325) 1 tab PRN Q6HRS PRN PO PAIN ; Start 03/27/17 at 18:45 Pyridostigmine [place] (Mestinon) 60 mg QID PO Last administered on 03/28/17 08:56; Start 03/27/17 at 21:00 Bupropion HCl (Wellbutrin Xl) 300 mg DAILY PO Last administered on 03/28/17 08:55; Start 03/28/17 at 09:00 Vitamin D (Vitamin D3) 1,000 unit DAILY PO Last administered on 03/28/17 08: 55; Start 03/28/17 at 09:00 Duloxetine HCl (Cymbalta) 120 mg DAILY PO Last administered on 03/28/17 08:56 ; Start 03/28/17 at 09:00 Gabapentin (Neurontin) 300 mg TID PO Last administered on 03/28/17 08:55; Start 03/27/17 at 21:00 Losartan Potassium (Cozaar) 100 mg DAILY PO Last administered on 03/28/17 08: 57; Start 03/28/17 at 09:00 Acetaminophen (Tylenol) 650 mg PRN Q6HRS PRN PO FEVER; Start 03/27/17 at 18:45 Ondansetron HCl (Zofran) 4 mg PRN Q6HRS PRN IV NAUSEA/VOMITING; Start at 18:45 Morphine Sulfate 2 mg PRN Q2HR PRN IV PAIN; Start 03/27/17 at 18:45 Tramadol HCl (Ultram) 50 mg PRN Q6HRS PRN PO PAIN; Start 03/27/17 at 18:45 Hydralazine HCl (Apresoline Inj) 10 mg PRN Q4HRS PRN IVP ELEVATED BP, SEE COMMENTS; Start 03/27/17 at 18:45 Docusate Sodium (Colace) 100 mg PRN DAILY PRN PO CONSTIPATION; Start 03/27/17 at 18:45 Enoxaparin Sodium (Lovenox 40mg Syringe) 40 mg Q24H SQ Last administered on 21:09; Start 03/27/17 at 21:00 Ceftriaxone Sodium 50 ml @ 100 mls/hr 1X ONCE IV Last administered on 19:32; Start 03/27/17 at 19:30; Stop 03/27/17 at 19:59; Status DC Active Scripts Active Hydrocodone-Apap 7.5-325 (Hydrocodone Bit/Acetaminophen) 1 Each Tablet 1 Tab PO PRN Q6HRS PRN Amlodipine Besylate 10 Mg Tablet 10 Mg PO DAILY Reported Mestinon (Pyridostigmine [place]) 60 Mg Tablet 60 Mg PO QID Cymbalta (Duloxetine Hcl) 60 Mg Capsule.dr 2 Cap PO DAILY Gabapentin 300 Mg Capsule 300 Mg PO TID Xanax (Alprazolam) 0.5 Mg Tablet 1 Mg PO PRN TID PRN Vitamin D-3 (Cholecalciferol (Vitamin D3)) 2,000 Unit Tablet 1,000 Unit PO DAILY06 Atorvastatin Calcium 10 Mg Tablet 10 Mg PO DAILY Losartan Potassium 100 Mg Tablet 100 Mg PO DAILY Bupropion Xl (Bupropion Hcl) 300 Mg Tab.er.24h 300 Mg PO DAILY Allergies Allergies: Coded Allergies: Penicillins (Verified Allergy, Intermediate, Rash, 02/28/17) ROCEPHIN [place] ciprofloxacin (Verified Allergy, Intermediate, 03/27/17) Sulfa (Sulfonamide Antibiotics) (Verified Adverse Reaction, Intermediate, Nausea, 02/28/17) ROS General: YES: Fatigue, Malaise PSYCHOLOGICAL ROS: YES: Anxiety, Depression Eyes: Yes Decreased vision HEENT: YES: [place] Respiratory: YES: Cough Gastrointestinal: Yes Constipation Musculoskeletal: Yes Joint Pain, Yes Muscular Weakness Neurological: Yes Gait Disturbance, Yes Weakness Skin: Yes Dry Skin Physical Exam General: Alert, Oriented X3, Cooperative, No acute distress HEENT: Atraumatic, PERRLA, EOMI, Mucous membr. moist/pink Lungs: Clear to auscultation, Normal air movement Heart: Regular rate, Normal S1, Normal S2 Abdomen: Normal bowel sounds, No tenderness Extremities: No clubbing Skin: No rashes, No breakdown, No significant lesion Neuro: Normal speech Psych/Mental Status: Mood NL MUSCULOSKELETAL: No deformity, No swelling Vitals VITALS Vital Signs Date Time Temp Pulse Resp B/P (MAP) Pulse Ox O2 Delivery O2 Flow Rate FiO2 03/28/17 11:00 97.7 64 19 124/64 (84) 96 Room Air 97.7 Labs Labs Laboratory Tests Test 03/27/17 16:55 03/27/17 17:34 03/27/17 17:55 03/28/17 04:20 White Blood Count 10.8 x10^3/uL (4.0-11.0) 8.2 x10^3/uL (4.0-11.0) Red Blood Count 5.46 x10^6/uL (3.50-5.40) 4.93 x10^6/uL (3.50-5.40) Hemoglobin 13.9 g/dL (12.0-15.5) 12.4 g/dL (12.0-15.5) Hematocrit 43.4 % (36.0-47.0) 39.4 % (36.0-47.0) Mean Corpuscular Volume 80 fL (79-100) 80 fL (79-100) Mean Corpuscular Hemoglobin 25 pg (25-35) 25 pg (25-35) Mean Corpuscular Hemoglobin Concent 32 g/dL (31-37) 32 g/dL (31-37) Red Cell Distribution Width 19.3 % (11.5-14.5) 19.3 % (11.5-14.5) Platelet Count 429 x10^3/uL (140-400) 368 x10^3/uL (140-400) Neutrophils (%) (Auto) 66 % (31-73) 48 % (31-73) Lymphocytes (%) (Auto) 23 % (24-48) 35 % (24-48) Monocytes (%) (Auto) 7 % (0-9) 10 % (0-9) Eosinophils (%) (Auto) 4 % (0-3) 6 % (0-3) Basophils (%) (Auto) 1 % (0-3) 1 % (0-3) Neutrophils # (Auto) 7.1 x10^3uL (1.8-7.7) 3.9 x10^3uL (1.8-7.7) Lymphocytes # (Auto) 2.5 x10^3/uL (1.0-4.8) 2.9 x10^3/uL (1.0-4.8) Monocytes # (Auto) 0.7 x10^3/uL (0.0-1.1) 0.8 x10^3/uL (0.0-1.1) Eosinophils # (Auto) 0.4 x10^3/uL (0.0-0.7) 0.5 x10^3/uL (0.0-0.7) Basophils # (Auto) 0.1 x10^3/uL (0.0-0.2) 0.1 x10^3/uL (0.0-0.2) ZY-Iev-Y-Type Natriuretic Peptide 52 pg/mL (0-124) Thyroid Stimulating Hormone (TSH) 1.990 uIU/mL (0.358-3.74) Sodium Level 141 mmol/L (136-145) 144 mmol/L (136-145) Potassium Level 3.7 mmol/L (3.5-5.1) 3.3 mmol/L (3.5-5.1) Chloride Level 104 mmol/L (98-107) 107 mmol/L (98-107) Carbon Dioxide Level 30 mmol/L (21-32) 31 mmol/L (21-32) Anion Gap 7 (6-14) 6 (6-14) Blood Urea Nitrogen 22 mg/dL (7-20) 20 mg/dL (7-20) Creatinine 0.7 mg/dL (0.6-1.0) 0.7 mg/dL (0.6-1.0) Estimated GFR (Cockcroft-Gault) 83.5 83.5 BUN/Creatinine Ratio 31 (6-20) Glucose Level 109 mg/dL (70-99) 90 mg/dL (70-99) Calcium Level 9.9 mg/dL (8.5-10.1) 9.5 mg/dL (8.5-10.1) Total Bilirubin 0.2 mg/dL (0.2-1.0) Aspartate Amino Transf (AST/SGOT) 22 U/L (15-37) Alanine Aminotransferase (ALT/SGPT) 25 U/L (14-59) Alkaline Phosphatase 110 U/L (46-116) Total Protein 7.5 g/dL (6.4-8.2) Albumin 3.2 g/dL (3.4-5.0) Albumin/Globulin Ratio 0.7 (1.0-1.7) Urine Color Yellow Urine Clarity Clear Urine pH 6.0 Urine Specific [place] 1.025 Urine Protein Negative mg/dL (NEG-TRACE) Urine Glucose (UA) Negative mg/dL (NEG) Urine Ketones (Stick) Negative mg/dL (NEG) Urine Blood Negative (NEG) Urine Nitrite Negative (NEG) Urine Bilirubin Negative (NEG) Urine Urobilinogen Dipstick 0.2 mg/dL (0.2 mg/dL) Urine Leukocyte Esterase Large (NEG) Urine RBC 0 /HPF (0-2) Urine WBC 11-20 /HPF (0-4) Urine Squamous Epithelial Cells Occ /LPF Urine Bacteria Few /HPF (0-FEW) Urine Mucus Slight /LPF Laboratory Tests Test 03/27/17 16:55 03/27/17 17:34 03/27/17 17:55 03/28/17 04:20 White Blood Count 10.8 x10^3/uL (4.0-11.0) 8.2 x10^3/uL (4.0-11.0) Red Blood Count 5.46 x10^6/uL (3.50-5.40) 4.93 x10^6/uL (3.50-5.40) Hemoglobin 13.9 g/dL (12.0-15.5) 12.4 g/dL (12.0-15.5) Hematocrit 43.4 % (36.0-47.0) 39.4 % (36.0-47.0) Mean Corpuscular Volume 80 fL (79-100) 80 fL (79-100) Mean Corpuscular Hemoglobin 25 pg (25-35) 25 pg (25-35) Mean Corpuscular Hemoglobin Concent 32 g/dL (31-37) 32 g/dL (31-37) Red Cell Distribution Width 19.3 % (11.5-14.5) 19.3 % (11.5-14.5) Platelet Count 429 x10^3/uL (140-400) 368 x10^3/uL (140-400) Neutrophils (%) (Auto) 66 % (31-73) 48 % (31-73) Lymphocytes (%) (Auto) 23 % (24-48) 35 % (24-48) Monocytes (%) (Auto) 7 % (0-9) 10 % (0-9) Eosinophils (%) (Auto) 4 % (0-3) 6 % (0-3) Basophils (%) (Auto) 1 % (0-3) 1 % (0-3) Neutrophils # (Auto) 7.1 x10^3uL (1.8-7.7) 3.9 x10^3uL (1.8-7.7) Lymphocytes # (Auto) 2.5 x10^3/uL (1.0-4.8) 2.9 x10^3/uL (1.0-4.8) Monocytes # (Auto) 0.7 x10^3/uL (0.0-1.1) 0.8 x10^3/uL (0.0-1.1) Eosinophils # (Auto) 0.4 x10^3/uL (0.0-0.7) 0.5 x10^3/uL (0.0-0.7) Basophils # (Auto) 0.1 x10^3/uL (0.0-0.2) 0.1 x10^3/uL (0.0-0.2) DN-Nmo-D-Type Natriuretic Peptide 52 pg/mL (0-124) Thyroid Stimulating Hormone (TSH) 1.990 uIU/mL (0.358-3.74) Sodium Level 141 mmol/L (136-145) 144 mmol/L (136-145) Potassium Level 3.7 mmol/L (3.5-5.1) 3.3 mmol/L (3.5-5.1) Chloride Level 104 mmol/L (98-107) 107 mmol/L (98-107) Carbon Dioxide Level 30 mmol/L (21-32) 31 mmol/L (21-32) Anion Gap 7 (6-14) 6 (6-14) Blood Urea Nitrogen 22 mg/dL (7-20) 20 mg/dL (7-20) Creatinine 0.7 mg/dL (0.6-1.0) 0.7 mg/dL (0.6-1.0) Estimated GFR (Cockcroft-Gault) 83.5 83.5 BUN/Creatinine Ratio 31 (6-20) Glucose Level 109 mg/dL (70-99) 90 mg/dL (70-99) Calcium Level 9.9 mg/dL (8.5-10.1) 9.5 mg/dL (8.5-10.1) Total Bilirubin 0.2 mg/dL (0.2-1.0) Aspartate Amino Transf (AST/SGOT) 22 U/L (15-37) Alanine Aminotransferase (ALT/SGPT) 25 U/L (14-59) Alkaline Phosphatase 110 U/L (46-116) Total Protein 7.5 g/dL (6.4-8.2) Albumin 3.2 g/dL (3.4-5.0) Albumin/Globulin Ratio 0.7 (1.0-1.7) Urine Color Yellow Urine Clarity Clear Urine pH 6.0 Urine Specific [place] 1.025 Urine Protein Negative mg/dL (NEG-TRACE) Urine Glucose (UA) Negative mg/dL (NEG) Urine Ketones (Stick) Negative mg/dL (NEG) Urine Blood Negative (NEG) Urine Nitrite Negative (NEG) Urine Bilirubin Negative (NEG) Urine Urobilinogen Dipstick 0.2 mg/dL (0.2 mg/dL) Urine Leukocyte Esterase Large (NEG) Urine RBC 0 /HPF (0-2) Urine WBC 11-20 /HPF (0-4) Urine Squamous Epithelial Cells Occ /LPF Urine Bacteria Few /HPF (0-FEW) Urine Mucus Slight /LPF Assessment/Plan Assessment/Plan IMP MG EXACERBATION HYPOKALEMIA PLAN REPLACE K WILL ASK IR TO PLACE TUNNELED HD CATHETER WILL PLAN FOR THERAPEUTIC PLASMA EXCHANGE WILL REPLACE WITH SALINE AND ALBUMIN HAVE D/W NEUROLOGY YOKO CORDOBA MD Mar 28, 2017 12:00
[2017-03-28 12:30] LABS: PROTHROMBIN TIME PATIENT 12.5 SEC (11.7-14.0)
[2017-03-28] MEDS ORDERED: ALBUMIN HUMAN 5% 500 ML IV ONE ×5 (12:45)
--- NOTE | 2017-03-28 13:50 | PDOC ---
PROGRESS NOTES Chief Complaint Chief Complaint Extr weakness with myasthenia gravis ASSESSMENT AND PLAN: 1. MG: cont stigmine; Dr Hussein's input appreciated: plan for plasma pheresis, cath placement today 2. Hx hip dislocation (artificial joint): recurrent recent surg correction on 02/28, followed by acute rehab until a week ago. 3. CAD: no acute issues. bigeminy noted in VIR. cardiology consult 4. HTN: well controlled on current meds. 5. HLD: on statin 6. Hypokalemia: worsened. replete orally 7. Hx pericarditis 8. ZENON 9. B12 deficiency: on repletion 10. Peripheral neuropathy 11. Morbid obesity 12. R subconjunctival hemorrhage 13. Prophylaxis: lovenox History of Present Illness History of Present Illness very weak, unable to feed herself Vitals Vitals Vital Signs Date Time Temp Pulse Resp B/P (MAP) Pulse Ox O2 Delivery O2 Flow Rate FiO2 03/28/17 11:00 97.7 64 19 124/64 (84) 96 Room Air 97.7 Physical Exam General: Alert, Oriented X3, Cooperative, No acute distress Heart: Regular rate Lungs: Clear Abdomen: Normal bowel sounds, No tenderness Extremities: No edema Skin: No rashes Labs LABS Laboratory Tests Test 03/27/17 16:55 03/27/17 17:34 03/27/17 17:55 03/28/17 04:20 White Blood Count 10.8 x10^3/uL (4.0-11.0) 8.2 x10^3/uL (4.0-11.0) Red Blood Count 5.46 x10^6/uL (3.50-5.40) 4.93 x10^6/uL (3.50-5.40) Hemoglobin 13.9 g/dL (12.0-15.5) 12.4 g/dL (12.0-15.5) Hematocrit 43.4 % (36.0-47.0) 39.4 % (36.0-47.0) Mean Corpuscular Volume 80 fL (79-100) 80 fL (79-100) Mean Corpuscular Hemoglobin 25 pg (25-35) 25 pg (25-35) Mean Corpuscular Hemoglobin Concent 32 g/dL (31-37) 32 g/dL (31-37) Red Cell Distribution Width 19.3 % (11.5-14.5) 19.3 % (11.5-14.5) Platelet Count 429 x10^3/uL (140-400) 368 x10^3/uL (140-400) Neutrophils (%) (Auto) 66 % (31-73) 48 % (31-73) Lymphocytes (%) (Auto) 23 % (24-48) 35 % (24-48) Monocytes (%) (Auto) 7 % (0-9) 10 % (0-9) Eosinophils (%) (Auto) 4 % (0-3) 6 % (0-3) Basophils (%) (Auto) 1 % (0-3) 1 % (0-3) Neutrophils # (Auto) 7.1 x10^3uL (1.8-7.7) 3.9 x10^3uL (1.8-7.7) Lymphocytes # (Auto) 2.5 x10^3/uL (1.0-4.8) 2.9 x10^3/uL (1.0-4.8) Monocytes # (Auto) 0.7 x10^3/uL (0.0-1.1) 0.8 x10^3/uL (0.0-1.1) Eosinophils # (Auto) 0.4 x10^3/uL (0.0-0.7) 0.5 x10^3/uL (0.0-0.7) Basophils # (Auto) 0.1 x10^3/uL (0.0-0.2) 0.1 x10^3/uL (0.0-0.2) OB-Lti-I-Type Natriuretic Peptide 52 pg/mL (0-124) Thyroid Stimulating Hormone (TSH) 1.990 uIU/mL (0.358-3.74) Sodium Level 141 mmol/L (136-145) 144 mmol/L (136-145) Potassium Level 3.7 mmol/L (3.5-5.1) 3.3 mmol/L (3.5-5.1) Chloride Level 104 mmol/L (98-107) 107 mmol/L (98-107) Carbon Dioxide Level 30 mmol/L (21-32) 31 mmol/L (21-32) Anion Gap 7 (6-14) 6 (6-14) Blood Urea Nitrogen 22 mg/dL (7-20) 20 mg/dL (7-20) Creatinine 0.7 mg/dL (0.6-1.0) 0.7 mg/dL (0.6-1.0) Estimated GFR (Cockcroft-Gault) 83.5 83.5 BUN/Creatinine Ratio 31 (6-20) Glucose Level 109 mg/dL (70-99) 90 mg/dL (70-99) Calcium Level 9.9 mg/dL (8.5-10.1) 9.5 mg/dL (8.5-10.1) Total Bilirubin 0.2 mg/dL (0.2-1.0) Aspartate Amino Transf (AST/SGOT) 22 U/L (15-37) Alanine Aminotransferase (ALT/SGPT) 25 U/L (14-59) Alkaline Phosphatase 110 U/L (46-116) Total Protein 7.5 g/dL (6.4-8.2) Albumin 3.2 g/dL (3.4-5.0) Albumin/Globulin Ratio 0.7 (1.0-1.7) Urine Color Yellow Urine Clarity Clear Urine pH 6.0 Urine Specific [place] 1.025 Urine Protein Negative mg/dL (NEG-TRACE) Urine Glucose (UA) Negative mg/dL (NEG) Urine Ketones (Stick) Negative mg/dL (NEG) Urine Blood Negative (NEG) Urine Nitrite Negative (NEG) Urine Bilirubin Negative (NEG) Urine Urobilinogen Dipstick 0.2 mg/dL (0.2 mg/dL) Urine Leukocyte Esterase Large (NEG) Urine RBC 0 /HPF (0-2) Urine WBC 11-20 /HPF (0-4) Urine Squamous Epithelial Cells Occ /LPF Urine Bacteria Few /HPF (0-FEW) Urine Mucus Slight /LPF Test 03/28/17 11:50 Prothrombin Time 12.5 SEC (11.7-14.0) Prothromb Time International Ratio 1.0 (0.8-1.1) CLARY MENDOZA MD Mar 28, 2017 13:50
[2017-03-28] MEDS ORDERED: LIDOCAINE 1%/EPI 1:100,000 20 ML VIAL. ONE (15:03)
[2017-03-28] MEDS ORDERED: HEPARIN for IV BOLUS 10,000 UNIT/10 ML VIAL. ONE (15:03)
[2017-03-28] MEDS ORDERED: MIDAZOLAM HCL/PF 2 MG/2 ML VIAL. ONE (15:29)
[2017-03-28] MEDS ORDERED: fentaNYL PF VIAL 100 MCG/2 ML VIAL ONE (15:29)
[2017-03-28] MEDS ORDERED: MIDAZOLAM HCL/PF 2 MG/2 ML VIAL. IV ONE (15:45)
[2017-03-28] MEDS ORDERED: LIDOCAINE 1%/EPI 1:100,000 20 ML VIAL. INJ ONE (15:45)
[2017-03-28] MEDS ORDERED: HEPARIN for IV BOLUS 10,000 UNIT/10 ML VIAL. IV ONE (15:45)
[2017-03-28] MEDS ORDERED: fentaNYL PF VIAL 100 MCG/2 ML VIAL IV ONE (15:45)
[2017-03-28 16:19] VITALS: BP 148/72
--- NOTE | 2017-03-28 17:11 | RAD ---
Procedure: Tunneled hemodialysis catheter placement 03/28/2017 Clinical Indication: Plasmapheresis Sedation: Conscious sedation was administered for 30 minutes. The patient was monitored by a qualified independent observer throughout the time of sedation. Please refer to the medical record for exact doses of medications utilized to achieve moderate sedation. FLUORO TIME: 2.3 MIN DOSE: 4 Gycm2 Sterility: All elements of maximal sterile barrier technique including the use of a cap, mask, sterile gown, sterile gloves, large sterile sheet, appropriate hand hygiene, and 2% chlorhexidine for cutaneous antisepsis (or acceptable alternative antiseptic per current guidelines) were followed for this procedure. Consent: The procedure was explained in its entirety to the patient or the patients designated insurance healthcare representative by a member of the treatment team, including a discussion of the risks, benefits and commonly accepted alternatives to the procedure, as well as the expected consequences of no therapy whatsoever. Discussion of the risks included, but was not limited to, those that are most frequent and those that are rare but possibly severe or life-threatening, as well as the possibility of unforeseen complications. Technique and Findings: Following informed consent, the patient was prepped and draped in the usual sterile fashion. Ultrasound interrogation of the right neck revealed patency and compressibility of the right internal jugular vein. A 21-gauge micropuncture was then used to gain access to this vein under ultrasound guidance. A hard copy ultrasound image was recorded. The needle was exchanged over a wire for a 4 Mongolian sheath which was used to guide an Amplatz wire into the IVC. The skin over the right anterior chest wall was copiously anesthetized with 1% Lidocaine plus Epinephrine and a small dermatotomy was made. A 28 cm Duraflow tunneled hemodialysis catheter was then tunneled subcutaneously towards the neck dermatotomy and deployed through a large caliber peel-away sheath under fluoroscopic guidance such that the distal tip resided in the mid right atrium. Manual flow rates were assessed and found to be excellent. The catheter was then flushed, packed with Heparin, capped, and sutured to the skin. The neck dermatotomy was closed with Dermabond. No immediate complications were identified. At the end of the case the sedation nurse noted the to be in bigeminy .Per patient history this is a new finding. The catheter was reevaluated to ensure was not 2 centrally positioned however appear to be normal in position. Catheter was mildly retracted such that its tip was at the cavoatrial junction even in expiration. The finding persisted. The hospitalist was contacted and made aware of these findings. Impression: Tunneled hemodialysis catheter placement as described.
--- NOTE | 2017-03-28 17:17 | PDOC2 ---
NEUROLOGY CONSULT Date of Admission Date of Admission DATE: 03/28/17 TIME: 17:11 Reason for Consult Reason for Consult: MG exacerbation. Slurred speech as her symptoms of MG. Generalized weakness. Recent left superior and medial dislocation of femoral prothesis. Vit B12 deficiency. HTN HLD Falls ZENON Obesity. RECOMMENDATIONS/PLAN: Plasma exchange. Consulted Nephrology. Continue Mestinon, 60 mg qid. Prednisone 10 mg daily. Treat medical diseases. Treat UTI. OT/PT. 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 She was hospitalized in 02/2017 and received rehab as well. She just went ot home a week ago after rehab, but she has been having worsening symptoms of generalized weakness to the point that she was difficult to lift her arms and walk. Her speech again become slurred. She felt easily got tired at home. Past Medical History Cardiovascular: CAD, Other Pulmonary: Asthma CENTRAL NERVOUS SYSTEM: Periperal neuropathy Endocrine: Diabetes Past Surgical History Appendectomy, Arthroscopy, Total hip replacement, Hysterectomy, Other Family History Hypertension Social History Smoke: No ALCOHOL: none Drugs: None ALLERGY: Reviewed. MEDICATIONS: Refer to MAR REVIEW OF SYSTEMS: Constitutional: No malnutrition, weight loss, cachexia. Head: No traumatic brain or head injury. Skin: No edema, or rash. Ear: No infection. Eyes: No vision loss or color blindness. Nose: No bleeding or purulent discharges. Hearing: Hearing decrease. Neck: No injury. Breast: No history of cancer, masses,or discharges. Cardiac: HTN, HLD. Pulmonary: ZENON GI: No GI ulcer, GI bleeding. Urinary/genital: UTI. Endocrinologic: Obesity. Skeletomuscular: Falls.. Neurological: see HP. Psychiatric: Denies drug use/abuse. Otherwise, not -pzvsy review of systems. PHYSICAL EXAMINATION: General appearance is in acute distress. HEENT: Normocephalic and nontraumatic. Eyes, nose, ears, and throat are unremarkable. Neck is supple. No lymphadenopathy. No bruits are heard over the carotid artery. No crepitus. Cardiovascular: S1, S2, regular rate and rhythm. Pulmonary: Clear to auscultation bilaterally. Abdomen: Bowel sounds are positive. Abdomen is soft, nontender, and nondistended. Extremities: No rash, lesions, or edema. No restriction of range of motion NEUROLOGICAL EXAMINATION: Alert Oriented to time, place and person. PERRL. EOMI. CN: no focal findings. Muscle tone: within normal. Muscle strength: 4 UE, 4- right LE. DTR: 1-2 Plantar reflex: Flexor response bilaterally Gait: not examined in bed. Sensory exam: no abnormal findings. No cerebellar signs elicited. F-T-N test fine. Current Medications Current Medications Current Medications Alprazolam (Xanax) 1 mg PRN Q8HRS PRN PO ANXIETY Last administered on 01:40; Start 03/27/17 at 18:45 Amlodipine Besylate (Norvasc) 10 mg DAILY PO Last administered on 03/28/17 08 :56; Start 03/28/17 at 09:00 Atorvastatin Calcium (Lipitor) 10 mg QHS PO ; Start 03/28/17 at 21:00 Acetaminophen/ Hydrocodone Bitart (Lortab 7.5/325) 1 tab PRN Q6HRS PRN PO PAIN ; Start 03/27/17 at 18:45 Pyridostigmine [place] (Mestinon) 60 mg QID PO Last administered on 03/28/17 13:30; Start 03/27/17 at 21:00 Bupropion HCl (Wellbutrin Xl) 300 mg DAILY PO Last administered on 03/28/17 08:55; Start 03/28/17 at 09:00 Vitamin D (Vitamin D3) 1,000 unit DAILY PO Last administered on 03/28/17 08: 55; Start 03/28/17 at 09:00 Duloxetine HCl (Cymbalta) 120 mg DAILY PO Last administered on 03/28/17 08:56 ; Start 03/28/17 at 09:00 Gabapentin (Neurontin) 300 mg TID PO Last administered on 03/28/17 13:30; Start 03/27/17 at 21:00 Losartan Potassium (Cozaar) 100 mg DAILY PO Last administered on 03/28/17 08: 57; Start 03/28/17 at 09:00 Acetaminophen (Tylenol) 650 mg PRN Q6HRS PRN PO FEVER; Start 03/27/17 at 18:45 Ondansetron HCl (Zofran) 4 mg PRN Q6HRS PRN IV NAUSEA/VOMITING; Start at 18:45 Morphine Sulfate 2 mg PRN Q2HR PRN IV PAIN; Start 03/27/17 at 18:45 Tramadol HCl (Ultram) 50 mg PRN Q6HRS PRN PO PAIN; Start 03/27/17 at 18:45 Hydralazine HCl (Apresoline Inj) 10 mg PRN Q4HRS PRN IVP ELEVATED BP, SEE COMMENTS; Start 03/27/17 at 18:45 Docusate Sodium (Colace) 100 mg PRN DAILY PRN PO CONSTIPATION; Start 03/27/17 at 18:45 Enoxaparin Sodium (Lovenox 40mg Syringe) 40 mg Q24H SQ Last administered on 21:09; Start 03/27/17 at 21:00 Ceftriaxone Sodium 50 ml @ 100 mls/hr 1X ONCE IV Last administered on 19:32; Start 03/27/17 at 19:30; Stop 03/27/17 at 19:59; Status DC Potassium Chloride (Klor-Con) 40 meq 1X ONCE PO Last administered on 13:31; Start 03/28/17 at 12:00; Stop 03/28/17 at 12:01; Status DC Albumin Human 500 ml @ 0 mls/hr 1X ONCE IV Last administered on 03/28/17 16: 54; Start 03/28/17 at 12:45; Stop 03/28/17 at 12:54; Status DC Albumin Human 500 ml @ 125 mls/hr 1X ONCE IV Last administered on 03/28/17 16:54; Start 03/28/17 at 12:45; Stop 03/28/17 at 16:44; Status DC Albumin Human 500 ml @ 0 mls/hr 1X ONCE IV ; Start 03/28/17 at 12:45; Stop at 12:54; Status DC Albumin Human 500 ml @ 125 mls/hr 1X ONCE IV Last administered on 03/28/17 16:55; Start 03/28/17 at 12:45; Stop 03/28/17 at 16:44; Status DC Albumin Human 500 ml @ 0 mls/hr 1X ONCE IV Last administered on 03/28/17 16: 55; Start 03/28/17 at 12:45; Stop 03/28/17 at 12:54; Status DC Heparin Sodium (Porcine) (Heparin Sodium) 10,000 unit STK-MED ONCE .ROUTE ; Start 03/28/17 at 15:03; Stop 03/28/17 at 15:04; Status DC Lidocaine/ Epinephrine (Xylocaine 1%-Epi 1:100,000) 20 ml STK-MED ONCE .ROUTE ; Start 03/28/17 at 15:03; Stop 03/28/17 at 15:04; Status DC Heparin Sodium/ Sodium Chloride 500 ml @ As Directed STK-MED ONCE .ROUTE ; Start 03/28/17 at 15:03; Stop 03/28/17 at 15:04; Status DC Fentanyl Citrate (Fentanyl 2ml Vial) 100 mcg STK-MED ONCE .ROUTE ; Start at 15:29; Stop 03/28/17 at 15:30; Status DC Midazolam HCl (Versed) 2 mg STK-MED ONCE .ROUTE ; Start 03/28/17 at 15:29; Stop 03/28/17 at 15:30; Status DC Heparin Sodium/ Sodium Chloride 1,000 unit 1X ONCE IART Last administered on 03/28/17 16:14; Start 03/28/17 at 15:45; Stop 03/28/17 at 15:46; Status DC Midazolam HCl (Versed) 2 mg 1X ONCE IV Last administered on 03/28/17 16:15; Start 03/28/17 at 15:45; Stop 03/28/17 at 15:46; Status DC Fentanyl Citrate (Fentanyl 2ml Vial) 100 mcg 1X ONCE IV Last administered on 03/28/17 16:14; Start 03/28/17 at 15:45; Stop 03/28/17 at 15:46; Status DC Heparin Sodium (Porcine) (Heparin Sodium) 4,000 unit 1X ONCE IV Last administered on 03/28/17 16:16; Start 03/28/17 at 15:45; Stop 03/28/17 at 15 :46; Status DC Lidocaine/ Epinephrine (Xylocaine 1%-Epi 1:100,000) 20 ml 1X ONCE INJ Last administered on 03/28/17 16:15; Start 03/28/17 at 15:45; Stop 03/28/17 at 15 :46; Status DC Ceftriaxone Sodium 1 gm/ Dextrose 50 ml @ 100 mls/hr Q24H IV ; Start 03/28/17 at 19:00 Active Scripts Active Hydrocodone-Apap 7.5-325 (Hydrocodone Bit/Acetaminophen) 1 Each Tablet 1 Tab PO PRN Q6HRS PRN Amlodipine Besylate 10 Mg Tablet 10 Mg PO DAILY Reported Mestinon (Pyridostigmine [place]) 60 Mg Tablet 60 Mg PO QID Cymbalta (Duloxetine Hcl) 60 Mg Capsule.dr 2 Cap PO DAILY Gabapentin 300 Mg Capsule 300 Mg PO TID Xanax (Alprazolam) 0.5 Mg Tablet 1 Mg PO PRN TID PRN Vitamin D-3 (Cholecalciferol (Vitamin D3)) 2,000 Unit Tablet 1,000 Unit PO DAILY06 Atorvastatin Calcium 10 Mg Tablet 10 Mg PO DAILY Losartan Potassium 100 Mg Tablet 100 Mg PO DAILY Bupropion Xl (Bupropion Hcl) 300 Mg Tab.er.24h 300 Mg PO DAILY Allergies Allergies: Coded Allergies: Penicillins (Verified Allergy, Intermediate, Rash, 02/28/17) ROCEPHIN [place] ciprofloxacin (Verified Allergy, Intermediate, 03/27/17) Sulfa (Sulfonamide Antibiotics) (Verified Adverse Reaction, Intermediate, Nausea, 02/28/17) Vitals VITALS Vital Signs Date Time Temp Pulse Resp B/P (MAP) Pulse Ox O2 Delivery O2 Flow Rate FiO2 03/28/17 16:19 70 16 98 Room Air 03/28/17 11:00 97.7 124/64 (84) 97.7 Labs Labs Laboratory Tests Test 03/27/17 16:55 03/27/17 17:34 03/27/17 17:55 03/28/17 04:20 White Blood Count 10.8 x10^3/uL (4.0-11.0) 8.2 x10^3/uL (4.0-11.0) Red Blood Count 5.46 x10^6/uL (3.50-5.40) 4.93 x10^6/uL (3.50-5.40) Hemoglobin 13.9 g/dL (12.0-15.5) 12.4 g/dL (12.0-15.5) Hematocrit 43.4 % (36.0-47.0) 39.4 % (36.0-47.0) Mean Corpuscular Volume 80 fL (79-100) 80 fL (79-100) Mean Corpuscular Hemoglobin 25 pg (25-35) 25 pg (25-35) Mean Corpuscular Hemoglobin Concent 32 g/dL (31-37) 32 g/dL (31-37) Red Cell Distribution Width 19.3 % (11.5-14.5) 19.3 % (11.5-14.5) Platelet Count 429 x10^3/uL (140-400) 368 x10^3/uL (140-400) Neutrophils (%) (Auto) 66 % (31-73) 48 % (31-73) Lymphocytes (%) (Auto) 23 % (24-48) 35 % (24-48) Monocytes (%) (Auto) 7 % (0-9) 10 % (0-9) Eosinophils (%) (Auto) 4 % (0-3) 6 % (0-3) Basophils (%) (Auto) 1 % (0-3) 1 % (0-3) Neutrophils # (Auto) 7.1 x10^3uL (1.8-7.7) 3.9 x10^3uL (1.8-7.7) Lymphocytes # (Auto) 2.5 x10^3/uL (1.0-4.8) 2.9 x10^3/uL (1.0-4.8) Monocytes # (Auto) 0.7 x10^3/uL (0.0-1.1) 0.8 x10^3/uL (0.0-1.1) Eosinophils # (Auto) 0.4 x10^3/uL (0.0-0.7) 0.5 x10^3/uL (0.0-0.7) Basophils # (Auto) 0.1 x10^3/uL (0.0-0.2) 0.1 x10^3/uL (0.0-0.2) MN-Lqi-A-Type Natriuretic Peptide 52 pg/mL (0-124) Thyroid Stimulating Hormone (TSH) 1.990 uIU/mL (0.358-3.74) Sodium Level 141 mmol/L (136-145) 144 mmol/L (136-145) Potassium Level 3.7 mmol/L (3.5-5.1) 3.3 mmol/L (3.5-5.1) Chloride Level 104 mmol/L (98-107) 107 mmol/L (98-107) Carbon Dioxide Level 30 mmol/L (21-32) 31 mmol/L (21-32) Anion Gap 7 (6-14) 6 (6-14) Blood Urea Nitrogen 22 mg/dL (7-20) 20 mg/dL (7-20) Creatinine 0.7 mg/dL (0.6-1.0) 0.7 mg/dL (0.6-1.0) Estimated GFR (Cockcroft-Gault) 83.5 83.5 BUN/Creatinine Ratio 31 (6-20) Glucose Level 109 mg/dL (70-99) 90 mg/dL (70-99) Calcium Level 9.9 mg/dL (8.5-10.1) 9.5 mg/dL (8.5-10.1) Total Bilirubin 0.2 mg/dL (0.2-1.0) Aspartate Amino Transf (AST/SGOT) 22 U/L (15-37) Alanine Aminotransferase (ALT/SGPT) 25 U/L (14-59) Alkaline Phosphatase 110 U/L (46-116) Total Protein 7.5 g/dL (6.4-8.2) Albumin 3.2 g/dL (3.4-5.0) Albumin/Globulin Ratio 0.7 (1.0-1.7) Urine Color Yellow Urine Clarity Clear Urine pH 6.0 Urine Specific [place] 1.025 Urine Protein Negative mg/dL (NEG-TRACE) Urine Glucose (UA) Negative mg/dL (NEG) Urine Ketones (Stick) Negative mg/dL (NEG) Urine Blood Negative (NEG) Urine Nitrite Negative (NEG) Urine Bilirubin Negative (NEG) Urine Urobilinogen Dipstick 0.2 mg/dL (0.2 mg/dL) Urine Leukocyte Esterase Large (NEG) Urine RBC 0 /HPF (0-2) Urine WBC 11-20 /HPF (0-4) Urine Squamous Epithelial Cells Occ /LPF Urine Bacteria Few /HPF (0-FEW) Urine Mucus Slight /LPF Test 03/28/17 11:50 Prothrombin Time 12.5 SEC (11.7-14.0) Prothromb Time International Ratio 1.0 (0.8-1.1) Laboratory Tests Test 03/27/17 17:34 03/27/17 17:55 03/28/17 04:20 03/28/17 11:50 Sodium Level 141 mmol/L (136-145) 144 mmol/L (136-145) Potassium Level 3.7 mmol/L (3.5-5.1) 3.3 mmol/L (3.5-5.1) Chloride Level 104 mmol/L (98-107) 107 mmol/L (98-107) Carbon Dioxide Level 30 mmol/L (21-32) 31 mmol/L (21-32) Anion Gap 7 (6-14) 6 (6-14) Blood Urea Nitrogen 22 mg/dL (7-20) 20 mg/dL (7-20) Creatinine 0.7 mg/dL (0.6-1.0) 0.7 mg/dL (0.6-1.0) Estimated GFR (Cockcroft-Gault) 83.5 83.5 BUN/Creatinine Ratio 31 (6-20) Glucose Level 109 mg/dL (70-99) 90 mg/dL (70-99) Calcium Level 9.9 mg/dL (8.5-10.1) 9.5 mg/dL (8.5-10.1) Total Bilirubin 0.2 mg/dL (0.2-1.0) Aspartate Amino Transf (AST/SGOT) 22 U/L (15-37) Alanine Aminotransferase (ALT/SGPT) 25 U/L (14-59) Alkaline Phosphatase 110 U/L (46-116) Total Protein 7.5 g/dL (6.4-8.2) Albumin 3.2 g/dL (3.4-5.0) Albumin/Globulin Ratio 0.7 (1.0-1.7) Urine Color Yellow Urine Clarity Clear Urine pH 6.0 Urine Specific [place] 1.025 Urine Protein Negative mg/dL (NEG-TRACE) Urine Glucose (UA) Negative mg/dL (NEG) Urine Ketones (Stick) Negative mg/dL (NEG) Urine Blood Negative (NEG) Urine Nitrite Negative (NEG) Urine Bilirubin Negative (NEG) Urine Urobilinogen Dipstick 0.2 mg/dL (0.2 mg/dL) Urine Leukocyte Esterase Large (NEG) Urine RBC 0 /HPF (0-2) Urine WBC 11-20 /HPF (0-4) Urine Squamous Epithelial Cells Occ /LPF Urine Bacteria Few /HPF (0-FEW) Urine Mucus Slight /LPF White Blood Count 8.2 x10^3/uL (4.0-11.0) Red Blood Count 4.93 x10^6/uL (3.50-5.40) Hemoglobin 12.4 g/dL (12.0-15.5) Hematocrit 39.4 % (36.0-47.0) Mean Corpuscular Volume 80 fL (79-100) Mean Corpuscular Hemoglobin 25 pg (25-35) Mean Corpuscular Hemoglobin Concent 32 g/dL (31-37) Red Cell Distribution Width 19.3 % (11.5-14.5) Platelet Count 368 x10^3/uL (140-400) Neutrophils (%) (Auto) 48 % (31-73) Lymphocytes (%) (Auto) 35 % (24-48) Monocytes (%) (Auto) 10 % (0-9) Eosinophils (%) (Auto) 6 % (0-3) Basophils (%) (Auto) 1 % (0-3) Neutrophils # (Auto) 3.9 x10^3uL (1.8-7.7) Lymphocytes # (Auto) 2.9 x10^3/uL (1.0-4.8) Monocytes # (Auto) 0.8 x10^3/uL (0.0-1.1) Eosinophils # (Auto) 0.5 x10^3/uL (0.0-0.7) Basophils # (Auto) 0.1 x10^3/uL (0.0-0.2) Prothrombin Time 12.5 SEC (11.7-14.0) Prothromb Time International Ratio 1.0 (0.8-1.1) ELEANOR KENNEY MD Mar 28, 2017 17:17
[2017-03-28] MEDS: predniSONE 10 MG TABLET PO SCH (18:38)
[2017-03-28 19:40] VITALS: BP 114/62
[2017-03-28] MEDS: ATORVASTATIN CALCIUM 10 MG TABLET. PO SCH (21:30)
[2017-03-28] MEDS: ENOXAPARIN 40 MG/0.4 ML SYRINGE. SQ SCH (21:31)
[2017-03-28 23:30] VITALS: BP 109/58
[2017-03-29 03:30] VITALS: BP 109/58
[2017-03-29 06:28] LABS: CALCIUM 9.1 mg/dL (8.5-10.1); CREATININE 0.8 mg/dL (0.6-1.0); GFR 71.5; MAGNESIUM 1.9 mg/dL (1.8-2.4); PHOSPHORUS 3.6 mg/dL (2.6-4.7); POTASSIUM 4.4 mmol/L (3.5-5.1)
[2017-03-29 07:00] VITALS: BP 116/63
[2017-03-29] MEDS: GABAPENTIN 300 MG CAPSULE. PO SCH ×3 (09:37→21:35)
[2017-03-29] MEDS: buPROPion XL 150 MG TAB.ER.24H. PO SCH (09:37)
[2017-03-29] MEDS: CHOLECALCIFEROL (VITAMIN D3) 1,000 UNIT TABLET PO SCH (09:38)
[2017-03-29] MEDS: PYRIDOSTIGMINE BROMIDE 60 MG TABLET PO SCH ×4 (09:38→21:35)
[2017-03-29] MEDS: DULoxetine HCL 30 MG CAPSULE.DR PO SCH (09:38)
[2017-03-29] MEDS: LOSARTAN POTASSIUM 50 MG TABLET. PO SCH (09:38)
[2017-03-29] MEDS: predniSONE 10 MG TABLET PO SCH (09:39)
[2017-03-29] MEDS: amLODIPine BESYLATE 10 MG TABLET PO SCH (09:39)
[2017-03-29] MEDS: HYDROcodone/APAP 7.5/325MG 1 TAB TABLET PO PRN ×2 (09:43→18:29)
[2017-03-29 11:00] VITALS: BP 111/58
--- NOTE | 2017-03-29 12:25 | PDOC ---
PROGRESS NOTES Chief Complaint Chief Complaint Extr weakness with myasthenia gravis ASSESSMENT AND PLAN: 1. MG: some improvement post plasma pheresis yesterday. 2nd pherresis today 2. Hx hip dislocation (artificial joint): recurrent recent surg correction on 02/28, followed by acute rehab until a week ago. 3. CAD: no acute issues. bigeminy noted in VIR. cardiology consult 4. HTN: well controlled on current meds. 5. HLD: on statin 6. Hypokalemia: worsened. replete orally 7. Hx pericarditis 8. ZENON 9. B12 deficiency: on repletion 10. Peripheral neuropathy 11. Morbid obesity 12. R subconjunctival hemorrhage: resolving 13. Prophylaxis: lovenox 14. external stressors: in rehab, daughter attempted suicide today. declines benzo (available PRN) History of Present Illness History of Present Illness very weak, unable to feed herself Vitals Vitals Vital Signs Date Time Temp Pulse Resp B/P (MAP) Pulse Ox O2 Delivery O2 Flow Rate FiO2 03/29/17 09:43 95 Room Air 03/29/17 09:39 62 116/63 03/29/17 07:00 97.6 20 97.6 Physical Exam General: Alert, Oriented X3, Cooperative, No acute distress Heart: Regular rate Lungs: Clear Abdomen: Normal bowel sounds, No tenderness Extremities: No edema Skin: No rashes Labs LABS Laboratory Tests Test 03/29/17 05:20 Fibrinogen 176 mg/dL (200-440) Sodium Level 142 mmol/L (136-145) Potassium Level 4.4 mmol/L (3.5-5.1) Chloride Level 109 mmol/L (98-107) Carbon Dioxide Level 28 mmol/L (21-32) Anion Gap 5 (6-14) Blood Urea Nitrogen 21 mg/dL (7-20) Creatinine 0.8 mg/dL (0.6-1.0) Estimated GFR (Cockcroft-Gault) 71.5 Glucose Level 105 mg/dL (70-99) Calcium Level 9.1 mg/dL (8.5-10.1) Phosphorus Level 3.6 mg/dL (2.6-4.7) Magnesium Level 1.9 mg/dL (1.8-2.4) CLARY MENDOZA MD Mar 29, 2017 12:25
[2017-03-29 14:33] LABS: HEP B SURFACE ABDY Non Reactive (.)
--- NOTE | 2017-03-29 14:43 | PDOC ---
PROGRESS NOTES Assessment Assessment MG exacerbation. Slurred speech as her symptoms of MG. Generalized weakness. Recent left superior and medial dislocation of femoral prothesis. Vit B12 deficiency. HTN HLD Falls ZNEON Obesity. Emotional stress. RECOMMENDATIONS/PLAN: Plasma exchange, day 2 on 03/29/17. 1st one started on 03/28/17. Consulted Nephrology. Continue Mestinon, 60 mg qid. Prednisone 10 mg daily, started on 03/29/17. Treat medical diseases. Treat UTI. OT/PT. 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 She was hospitalized in 02/2017 and received rehab as well. She just went ot home a week ago after rehab, but she has been having worsening symptoms of generalized weakness to the point that she was difficult to lift her arms and walk. Her speech again become slurred. She felt easily got tired at home. Patient stated her symptoms of MG are better on 03/29/17, but she has strong emotional stress due to to her daughter's psychiatric problems. Past Medical History Cardiovascular: CAD, Other Pulmonary: Asthma CENTRAL NERVOUS SYSTEM: Periperal neuropathy Endocrine: Diabetes Past Surgical History Appendectomy, Arthroscopy, Total hip replacement, Hysterectomy, Other Family History Hypertension Social History Smoke: No ALCOHOL: none Drugs: None ALLERGY: Reviewed. MEDICATIONS: Refer to MAR REVIEW OF SYSTEMS: Constitutional: No malnutrition, weight loss, cachexia. Head: No traumatic brain or head injury. Skin: No edema, or rash. Ear: No infection. Eyes: No vision loss or color blindness. Nose: No bleeding or purulent discharges. Hearing: Hearing decrease. Neck: No injury. Breast: No history of cancer, masses,or discharges. Cardiac: HTN, HLD. Pulmonary: ZENON GI: No GI ulcer, GI bleeding. Urinary/genital: UTI. Endocrinologic: Obesity. Skeletomuscular: Falls.. Neurological: see HP. Psychiatric: Denies drug use/abuse. Otherwise, not [id number] review of systems. PHYSICAL EXAMINATION: General appearance is in acute distress. HEENT: Normocephalic and nontraumatic. Eyes, nose, ears, and throat are unremarkable. Neck is supple. No lymphadenopathy. No bruits are heard over the carotid artery. No crepitus. Cardiovascular: S1, S2, regular rate and rhythm. Pulmonary: Clear to auscultation bilaterally. Abdomen: Bowel sounds are positive. Abdomen is soft, nontender, and nondistended. Extremities: No rash, lesions, or edema. No restriction of range of motion NEUROLOGICAL EXAMINATION: Alert Oriented to time, place and person. PERRL. EOMI. CN: no focal findings. Muscle tone: within normal. Muscle strength: 4. DTR: 1-2 Plantar reflex: Flexor response bilaterally Gait: Able to walk with a walker and assistance. Sensory exam: no abnormal findings. No cerebellar signs elicited. F-T-N test fine. Objective Objective Vital Signs Date Time Temp Pulse Resp B/P (MAP) Pulse Ox O2 Delivery O2 Flow Rate FiO2 03/29/17 11:00 97.8 65 20 111/58 (75) 96 Room Air 97.8 Intake and Output 03/30/17 07:00 Intake Total 50 ml Balance 50 ml Intake Oral 50 ml Vitals Signs Vitals VS - Last 72 Hours, by Label Date Time Temp Pulse Resp B/P (MAP) Pulse Ox O2 Delivery O2 Flow Rate FiO2 03/29/17 11:00 97.8 65 20 111/58 (75) 96 Room Air 97.8 03/29/17 10:43 18 96 Room Air 03/29/17 09:43 95 Room Air 03/29/17 09:39 62 116/63 03/29/17 09:38 62 116/63 03/29/17 08:10 Room Air 03/29/17 07:00 97.6 62 20 116/63 (80) 95 Room Air 97.6 03/29/17 03:30 97.8 56 16 109/58 (75) 97 Room Air 97.8 03/28/17 23:30 97.8 56 16 109/58 (75) 97 Room Air 97.8 03/28/17 20:00 Room Air 03/28/17 19:59 18 Room Air 03/28/17 19:40 97.4 70 17 114/62 (79) 91 Room Air 97.4 03/28/17 16:19 70 16 98 Room Air 03/28/17 16:14 16 98 Room Air 03/28/17 11:00 97.7 64 19 124/64 (84) 96 Room Air 97.7 03/28/17 08:57 76 121/72 03/28/17 08:56 76 121/72 03/28/17 08:05 Room Air 03/28/17 07:00 97.5 77 19 121/72 (88) 94 Room Air 97.5 Laboratory Laboratory Laboratory Tests Test 03/29/17 05:20 Fibrinogen 176 mg/dL (200-440) Sodium Level 142 mmol/L (136-145) Potassium Level 4.4 mmol/L (3.5-5.1) Chloride Level 109 mmol/L (98-107) Carbon Dioxide Level 28 mmol/L (21-32) Anion Gap 5 (6-14) Blood Urea Nitrogen 21 mg/dL (7-20) Creatinine 0.8 mg/dL (0.6-1.0) Estimated GFR (Cockcroft-Gault) 71.5 Glucose Level 105 mg/dL (70-99) Calcium Level 9.1 mg/dL (8.5-10.1) Phosphorus Level 3.6 mg/dL (2.6-4.7) Magnesium Level 1.9 mg/dL (1.8-2.4) Microbiology 03/27/17 Urine Culture - Preliminary, Resulted 03/27/17 Urine Culture Result 1 (LUCHO) - Preliminary, Resulted 03/27/17 Urine Culture Result 2 (LUCHO) - Preliminary, Resulted 03/27/17 Antimicrobic Susceptibility - Preliminary, Resulted Medication Medications Current Medications Atorvastatin Calcium (Lipitor) 10 mg QHS PO Last administered on 03/28/17 21: 30; Start 03/28/17 at 21:00 Ceftriaxone Sodium 1 gm/ Dextrose 50 ml @ 100 mls/hr Q24H IV Last administered on 03/28/17 19:58; Start 03/28/17 at 19:00; Stop 03/29/17 at 04 :16; Status DC Ceftriaxone Sodium 1 gm/ Sodium Chloride 50 ml @ 100 mls/hr Q24H IV ; Start at 04:16; Stop 03/29/17 at 04:17; Status DC Ceftriaxone Sodium 1 gm/ Sodium Chloride 50 ml @ 100 mls/hr Q24H IV ; Start at 19:00 Fentanyl Citrate (Fentanyl 2ml Vial) 100 mcg 1X ONCE IV Last administered on 03/28/17 16:14; Start 03/28/17 at 15:45; Stop 03/28/17 at 15:46; Status DC Fentanyl Citrate (Fentanyl 2ml Vial) 100 mcg STK-MED ONCE .ROUTE ; Start at 15:29; Stop 03/28/17 at 15:30; Status DC Heparin Sodium (Porcine) (Heparin Sodium) 4,000 unit 1X ONCE IV Last administered on 03/28/17 16:16; Start 03/28/17 at 15:45; Stop 03/28/17 at 15 :46; Status DC Heparin Sodium (Porcine) (Heparin Sodium) 10,000 unit STK-MED ONCE .ROUTE ; Start 03/28/17 at 15:03; Stop 03/28/17 at 15:04; Status DC Heparin Sodium/ Sodium Chloride 500 ml @ As Directed STK-MED ONCE .ROUTE ; Start 03/28/17 at 15:03; Stop 03/28/17 at 15:04; Status DC Heparin Sodium/ Sodium Chloride 1,000 unit 1X ONCE IART Last administered on 03/28/17 16:14; Start 03/28/17 at 15:45; Stop 03/28/17 at 15:46; Status DC Lidocaine/ Epinephrine (Xylocaine 1%-Epi 1:100,000) 20 ml 1X ONCE INJ Last administered on 03/28/17 16:15; Start 03/28/17 at 15:45; Stop 03/28/17 at 15 :46; Status DC Lidocaine/ Epinephrine (Xylocaine 1%-Epi 1:100,000) 20 ml STK-MED ONCE .ROUTE ; Start 03/28/17 at 15:03; Stop 03/28/17 at 15:04; Status DC Midazolam HCl (Versed) 2 mg 1X ONCE IV Last administered on 03/28/17 16:15; Start 03/28/17 at 15:45; Stop 03/28/17 at 15:46; Status DC Midazolam HCl (Versed) 2 mg STK-MED ONCE .ROUTE ; Start 03/28/17 at 15:29; Stop 03/28/17 at 15:30; Status DC Prednisone (Prednisone) 10 mg DAILY PO Last administered on 03/29/17 09:39; Start 03/28/17 at 18:00 Comment Review of Relevant I have reviewed the following items antonio (where applicable) has been applied. ELEANOR KENNEY MD Mar 29, 2017 14:43
[2017-03-29] MEDS ORDERED: IV NORMAL SALINE 1000ML BAG 1,000 ML IV PRN (15:12)
[2017-03-29] MEDS ORDERED: diphenhydrAMINE 50 MG/ML VIAL IV PRN ×2 (15:15)
[2017-03-29] MEDS ORDERED: ALBUMIN HUMAN 5% 2,000 ML IV ONE ×2 (16:00)
--- NOTE | 2017-03-29 17:14 | PDOC ---
Renal-Progress Notes Subjective Notes Notes WEAK History of Present Illness Hx of present illness STABLE Vitals Vitals Vital Signs Date Time Temp Pulse Resp B/P (MAP) Pulse Ox O2 Delivery O2 Flow Rate FiO2 03/29/17 11:00 97.8 65 20 111/58 (75) 96 Room Air 97.8 Weight Weight [ ] I.O. Intake and Output Intake and Output 03/30/17 07:00 Intake Total 50 ml Balance 50 ml Intake Oral 50 ml Labs Labs Laboratory Tests Test 03/29/17 05:20 Fibrinogen 176 mg/dL (200-440) Sodium Level 142 mmol/L (136-145) Potassium Level 4.4 mmol/L (3.5-5.1) Chloride Level 109 mmol/L (98-107) Carbon Dioxide Level 28 mmol/L (21-32) Anion Gap 5 (6-14) Blood Urea Nitrogen 21 mg/dL (7-20) Creatinine 0.8 mg/dL (0.6-1.0) Estimated GFR (Cockcroft-Gault) 71.5 Glucose Level 105 mg/dL (70-99) Calcium Level 9.1 mg/dL (8.5-10.1) Phosphorus Level 3.6 mg/dL (2.6-4.7) Magnesium Level 1.9 mg/dL (1.8-2.4) Micro Micro Microbiology 03/27/17 Urine Culture - Preliminary, Resulted 03/27/17 Urine Culture Result 1 (LUCHO) - Preliminary, Resulted 03/27/17 Urine Culture Result 2 (LUCHO) - Preliminary, Resulted 03/27/17 Antimicrobic Susceptibility - Preliminary, Resulted Review of Systems Constitutional: yes: weakness, alert, oriented Ears/Nose/Throat: Yes: no symptom reported Eyes: Yes: no symptom reported Pulmonary: Yes no symptom reported Cardiovascular: Yes no symptom reported Gastrointestional: Yes: no symptom reported Genitourinary: Yes: no symptom reported Musculoskeletal: Yes: other (DIFFUSE UE AND LE WEAKNESS) Psychiatric/Neurological: Yes: no symptom reported Endocrine: Yes: no symptom reported Physical Exam General Appearance: no apparent distress Skin: warm Respiratory: bilateral CTA Heart: S1S2 Abdomen: soft, bowel sounds present Genitourinary: bladder flat Extremities: pulses present Neurology: alert, oriented Musculoskeletal: low back pain, Osteoarthritis Assessment Assessment IMP MYASTHENIA GRAVIS LOW K - RESOLVED PLAN TPE #2 TODAY EXCHANGE WITH ALB AND SALINE MAY NEED FFP TOMORROW YOKO CORDOBA MD Mar 29, 2017 17:14
[2017-03-29 19:35] VITALS: BP 91/49
[2017-03-29] MEDS: ENOXAPARIN 40 MG/0.4 ML SYRINGE. SQ SCH (21:35)
[2017-03-29] MEDS: ATORVASTATIN CALCIUM 10 MG TABLET. PO SCH (21:35)
[2017-03-29] MEDS: LACTOBACILLUS RHAMNOSUS GG 1 CAPSULE. PO SCH (21:35)
[2017-03-29 23:30] VITALS: BP 97/52
[2017-03-30 03:30] VITALS: BP 111/52
[2017-03-30 04:50] LABS: BASO # 0.1 x10^3/uL (0.0-0.2); BASO % 1 % (0-3); EOS % 2 % (0-3); HEMOGLOBIN 12.7 g/dL (12.0-15.5); LYMPH # 3.8 x10^3/uL (1.0-4.8); LYMPH % 32 % (24-48); MEAN CORPUSCULAR HEMOGLOBIN 25 pg (25-35); MEAN CORPUSCULAR HGB CONC 31 g/dL (31-37); MEAN CORPUSCULAR VOLUME 80 fL (79-100); MONO % 11 % (0-9); NEUT % 54 % (31-73); PLATELET COUNT 269 x10^3/uL (140-400); RED BLOOD COUNT 5.11 x10^6/uL (3.50-5.40); RED CELL DISTRIBUTION WIDTH 20.2 % (11.5-14.5); WHITE BLOOD COUNT 11.7 x10^3/uL (4.0-11.0)
[2017-03-30 04:56] LABS: INR 1.3 (0.8-1.1); PROTHROMBIN TIME PATIENT 15.6 SEC (11.7-14.0)
[2017-03-30 05:22] LABS: ALBUMIN 3.4 g/dL (3.4-5.0); ALBUMIN/GLOBULIN RATIO 2.1 (1.0-1.7); GFR 55.3; POTASSIUM 3.5 mmol/L (3.5-5.1); TOTAL BILIRUBIN 0.2 mg/dL (0.2-1.0)
[2017-03-30 07:00] VITALS: BP 137/47
[2017-03-30] MEDS: PYRIDOSTIGMINE BROMIDE 60 MG TABLET PO SCH ×4 (08:38→20:25)
[2017-03-30] MEDS: buPROPion XL 150 MG TAB.ER.24H. PO SCH (08:39)
[2017-03-30] MEDS: GABAPENTIN 300 MG CAPSULE. PO SCH ×3 (08:39→20:25)
[2017-03-30] MEDS: DULoxetine HCL 30 MG CAPSULE.DR PO SCH (08:39)
[2017-03-30] MEDS: LACTOBACILLUS RHAMNOSUS GG 1 CAPSULE. PO SCH ×2 (08:39→20:25)
[2017-03-30] MEDS: CHOLECALCIFEROL (VITAMIN D3) 1,000 UNIT TABLET PO SCH (08:40)
[2017-03-30] MEDS: amLODIPine BESYLATE 10 MG TABLET PO SCH (08:40)
[2017-03-30] MEDS: predniSONE 10 MG TABLET PO SCH (08:40)
[2017-03-30] MEDS: LOSARTAN POTASSIUM 50 MG TABLET. PO SCH (09:00)
[2017-03-30 11:00] VITALS: BP 108/57
--- NOTE | 2017-03-30 11:53 | PDOC ---
PROGRESS NOTES Chief Complaint Chief Complaint Extr weakness with myasthenia gravis ASSESSMENT AND PLAN: 1. M. Hx hip dislocation (artificial joint): 3. CAD: no acute issues. 4. HTN: well controlled on current meds. 5. HLD: on statin 6. Hypokalemia: 7. Hx pericarditis 8. ZENON 9. B12 deficiency: on repletion 10. Peripheral neuropathy 11. Morbid obesity 12. R subconjunctival hemorrhage: resolving 13. Prophylaxis: lovenox 14. external stressors: in rehab, daughter attempted suicide today. declines benzo (available PRN) History of Present Illness History of Present Illness ABle to walk to bathroom per CVC RN today But still weak Rt hand/arm - needing to help it with the other arm/hand NOw transferred to 6th floor Signif amt of external stressors - having clergy pray over her Dw neuro - 3-5 days of plasmapharesis PLAN: CPm LAbs PT/OT Further recs pending PT eval Vitals Vitals Vital Signs Date Time Temp Pulse Resp B/P (MAP) Pulse Ox O2 Delivery O2 Flow Rate FiO2 03/30/17 11:00 97.7 72 17 108/57 (74) 96 Room Air 97.7 Physical Exam General: Alert, Oriented X3, Cooperative, No acute distress Heart: Regular rate Lungs: Clear Abdomen: Normal bowel sounds, No tenderness Extremities: No edema Skin: No rashes Labs LABS Laboratory Tests Test 03/30/17 04:28 White Blood Count 11.7 x10^3/uL (4.0-11.0) Red Blood Count 5.11 x10^6/uL (3.50-5.40) Hemoglobin 12.7 g/dL (12.0-15.5) Hematocrit 41.0 % (36.0-47.0) Mean Corpuscular Volume 80 fL (79-100) Mean Corpuscular Hemoglobin 25 pg (25-35) Mean Corpuscular Hemoglobin Concent 31 g/dL (31-37) Red Cell Distribution Width 20.2 % (11.5-14.5) Platelet Count 269 x10^3/uL (140-400) Neutrophils (%) (Auto) 54 % (31-73) Lymphocytes (%) (Auto) 32 % (24-48) Monocytes (%) (Auto) 11 % (0-9) Eosinophils (%) (Auto) 2 % (0-3) Basophils (%) (Auto) 1 % (0-3) Neutrophils # (Auto) 6.3 x10^3uL (1.8-7.7) Lymphocytes # (Auto) 3.8 x10^3/uL (1.0-4.8) Monocytes # (Auto) 1.3 x10^3/uL (0.0-1.1) Eosinophils # (Auto) 0.3 x10^3/uL (0.0-0.7) Basophils # (Auto) 0.1 x10^3/uL (0.0-0.2) Prothrombin Time 15.6 SEC (11.7-14.0) Prothromb Time International Ratio 1.3 (0.8-1.1) Activated Partial Thromboplast Time 39 SEC (24-38) Fibrinogen 112 mg/dL (200-440) Sodium Level 142 mmol/L (136-145) Potassium Level 3.5 mmol/L (3.5-5.1) Chloride Level 109 mmol/L (98-107) Carbon Dioxide Level 28 mmol/L (21-32) Anion Gap 5 (6-14) Blood Urea Nitrogen 24 mg/dL (7-20) Creatinine 1.0 mg/dL (0.6-1.0) Estimated GFR (Cockcroft-Gault) 55.3 BUN/Creatinine Ratio 24 (6-20) Glucose Level 105 mg/dL (70-99) Calcium Level 9.0 mg/dL (8.5-10.1) Total Bilirubin 0.2 mg/dL (0.2-1.0) Aspartate Amino Transf (AST/SGOT) 10 U/L (15-37) Alanine Aminotransferase (ALT/SGPT) 13 U/L (14-59) Alkaline Phosphatase 40 U/L (46-116) Total Protein 5.0 g/dL (6.4-8.2) Albumin 3.4 g/dL (3.4-5.0) Albumin/Globulin Ratio 2.1 (1.0-1.7) Review of Systems Review of Systems weak RT arm, no CP, SOA or abd pain Assessment and Plan Assessmemt and Plan Problems Medical Problems: (1) Hyperglycemia Status: Acute (2) Urinary tract infection Status: Acute Problems: Comment Review of Relevant I have reviewed the following items antonio (where applicable) has been applied. Labs Laboratory Tests Test 03/29/17 05:20 03/30/17 04:28 Fibrinogen 176 mg/dL (200-440) 112 mg/dL (200-440) Sodium Level 142 mmol/L (136-145) 142 mmol/L (136-145) Potassium Level 4.4 mmol/L (3.5-5.1) 3.5 mmol/L (3.5-5.1) Chloride Level 109 mmol/L (98-107) 109 mmol/L (98-107) Carbon Dioxide Level 28 mmol/L (21-32) 28 mmol/L (21-32) Anion Gap 5 (6-14) 5 (6-14) Blood Urea Nitrogen 21 mg/dL (7-20) 24 mg/dL (7-20) Creatinine 0.8 mg/dL (0.6-1.0) 1.0 mg/dL (0.6-1.0) Estimated GFR (Cockcroft-Gault) 71.5 55.3 Glucose Level 105 mg/dL (70-99) 105 mg/dL (70-99) Calcium Level 9.1 mg/dL (8.5-10.1) 9.0 mg/dL (8.5-10.1) Phosphorus Level 3.6 mg/dL (2.6-4.7) Magnesium Level 1.9 mg/dL (1.8-2.4) White Blood Count 11.7 x10^3/uL (4.0-11.0) Red Blood Count 5.11 x10^6/uL (3.50-5.40) Hemoglobin 12.7 g/dL (12.0-15.5) Hematocrit 41.0 % (36.0-47.0) Mean Corpuscular Volume 80 fL (79-100) Mean Corpuscular Hemoglobin 25 pg (25-35) Mean Corpuscular Hemoglobin Concent 31 g/dL (31-37) Red Cell Distribution Width 20.2 % (11.5-14.5) Platelet Count 269 x10^3/uL (140-400) Neutrophils (%) (Auto) 54 % (31-73) Lymphocytes (%) (Auto) 32 % (24-48) Monocytes (%) (Auto) 11 % (0-9) Eosinophils (%) (Auto) 2 % (0-3) Basophils (%) (Auto) 1 % (0-3) Neutrophils # (Auto) 6.3 x10^3uL (1.8-7.7) Lymphocytes # (Auto) 3.8 x10^3/uL (1.0-4.8) Monocytes # (Auto) 1.3 x10^3/uL (0.0-1.1) Eosinophils # (Auto) 0.3 x10^3/uL (0.0-0.7) Basophils # (Auto) 0.1 x10^3/uL (0.0-0.2) Prothrombin Time 15.6 SEC (11.7-14.0) Prothromb Time International Ratio 1.3 (0.8-1.1) Activated Partial Thromboplast Time 39 SEC (24-38) BUN/Creatinine Ratio 24 (6-20) Total Bilirubin 0.2 mg/dL (0.2-1.0) Aspartate Amino Transf (AST/SGOT) 10 U/L (15-37) Alanine Aminotransferase (ALT/SGPT) 13 U/L (14-59) Alkaline Phosphatase 40 U/L (46-116) Total Protein 5.0 g/dL (6.4-8.2) Albumin 3.4 g/dL (3.4-5.0) Albumin/Globulin Ratio 2.1 (1.0-1.7) Laboratory Tests Test 03/30/17 04:28 White Blood Count 11.7 x10^3/uL (4.0-11.0) Red Blood Count 5.11 x10^6/uL (3.50-5.40) Hemoglobin 12.7 g/dL (12.0-15.5) Hematocrit 41.0 % (36.0-47.0) Mean Corpuscular Volume 80 fL (79-100) Mean Corpuscular Hemoglobin 25 pg (25-35) Mean Corpuscular Hemoglobin Concent 31 g/dL (31-37) Red Cell Distribution Width 20.2 % (11.5-14.5) Platelet Count 269 x10^3/uL (140-400) Neutrophils (%) (Auto) 54 % (31-73) Lymphocytes (%) (Auto) 32 % (24-48) Monocytes (%) (Auto) 11 % (0-9) Eosinophils (%) (Auto) 2 % (0-3) Basophils (%) (Auto) 1 % (0-3) Neutrophils # (Auto) 6.3 x10^3uL (1.8-7.7) Lymphocytes # (Auto) 3.8 x10^3/uL (1.0-4.8) Monocytes # (Auto) 1.3 x10^3/uL (0.0-1.1) Eosinophils # (Auto) 0.3 x10^3/uL (0.0-0.7) Basophils # (Auto) 0.1 x10^3/uL (0.0-0.2) Prothrombin Time 15.6 SEC (11.7-14.0) Prothromb Time International Ratio 1.3 (0.8-1.1) Activated Partial Thromboplast Time 39 SEC (24-38) Fibrinogen 112 mg/dL (200-440) Sodium Level 142 mmol/L (136-145) Potassium Level 3.5 mmol/L (3.5-5.1) Chloride Level 109 mmol/L (98-107) Carbon Dioxide Level 28 mmol/L (21-32) Anion Gap 5 (6-14) Blood Urea Nitrogen 24 mg/dL (7-20) Creatinine 1.0 mg/dL (0.6-1.0) Estimated GFR (Cockcroft-Gault) 55.3 BUN/Creatinine Ratio 24 (6-20) Glucose Level 105 mg/dL (70-99) Calcium Level 9.0 mg/dL (8.5-10.1) Total Bilirubin 0.2 mg/dL (0.2-1.0) Aspartate Amino Transf (AST/SGOT) 10 U/L (15-37) Alanine Aminotransferase (ALT/SGPT) 13 U/L (14-59) Alkaline Phosphatase 40 U/L (46-116) Total Protein 5.0 g/dL (6.4-8.2) Albumin 3.4 g/dL (3.4-5.0) Albumin/Globulin Ratio 2.1 (1.0-1.7) Microbiology 03/27/17 Urine Culture - Preliminary, Resulted 03/27/17 Urine Culture Result 1 (LUCHO) - Preliminary, Resulted 03/27/17 Urine Culture Result 2 (LUCHO) - Preliminary, Resulted 03/27/17 Antimicrobic Susceptibility - Preliminary, Resulted Medications Current Medications Alprazolam (Xanax) 1 mg PRN Q8HRS PRN PO ANXIETY Last administered on 01:40; Start 03/27/17 at 18:45 Amlodipine Besylate (Norvasc) 10 mg DAILY PO Last administered on 03/30/17 08 :40; Start 03/28/17 at 09:00 Atorvastatin Calcium (Lipitor) 10 mg QHS PO Last administered on 03/29/17 21: 35; Start 03/28/17 at 21:00 Acetaminophen/ Hydrocodone Bitart (Lortab 7.5/325) 1 tab PRN Q6HRS PRN PO PAIN Last administered on 03/29/17 18:29; Start 03/27/17 at 18:45 Pyridostigmine [place] (Mestinon) 60 mg QID PO Last administered on 03/30/17 08:38; Start 03/27/17 at 21:00 Bupropion HCl (Wellbutrin Xl) 300 mg DAILY PO Last administered on 03/30/17 08:39; Start 03/28/17 at 09:00 Vitamin D (Vitamin D3) 1,000 unit DAILY PO Last administered on 03/30/17 08: 40; Start 03/28/17 at 09:00 Duloxetine HCl (Cymbalta) 120 mg DAILY PO Last administered on 03/30/17 08:39 ; Start 03/28/17 at 09:00 Gabapentin (Neurontin) 300 mg TID PO Last administered on 03/30/17 08:39; Start 03/27/17 at 21:00 Losartan Potassium (Cozaar) 100 mg DAILY PO Last administered on 03/29/17 09: 38; Start 03/28/17 at 09:00 Acetaminophen (Tylenol) 650 mg PRN Q6HRS PRN PO FEVER; Start 03/27/17 at 18:45 Ondansetron HCl (Zofran) 4 mg PRN Q6HRS PRN IV NAUSEA/VOMITING Last administered on 03/28/17 19:58; Start 03/27/17 at 18:45 Morphine Sulfate 2 mg PRN Q2HR PRN IV PAIN; Start 03/27/17 at 18:45 Tramadol HCl (Ultram) 50 mg PRN Q6HRS PRN PO PAIN Last administered on 19:59; Start 03/27/17 at 18:45 Hydralazine HCl (Apresoline Inj) 10 mg PRN Q4HRS PRN IVP ELEVATED BP, SEE COMMENTS; Start 03/27/17 at 18:45 Docusate Sodium (Colace) 100 mg PRN DAILY PRN PO CONSTIPATION; Start 03/27/17 at 18:45 Enoxaparin Sodium (Lovenox 40mg Syringe) 40 mg Q24H SQ Last administered on 21:35; Start 03/27/17 at 21:00 Ceftriaxone Sodium 50 ml @ 100 mls/hr 1X ONCE IV Last administered on 19:32; Start 03/27/17 at 19:30; Stop 03/27/17 at 19:59; Status DC Potassium Chloride (Klor-Con) 40 meq 1X ONCE PO Last administered on 13:31; Start 03/28/17 at 12:00; Stop 03/28/17 at 12:01; Status DC Albumin Human 500 ml @ 0 mls/hr 1X ONCE IV Last administered on 03/28/17 16: 54; Start 03/28/17 at 12:45; Stop 03/28/17 at 12:54; Status DC Albumin Human 500 ml @ 125 mls/hr 1X ONCE IV Last administered on 03/28/17 16:54; Start 03/28/17 at 12:45; Stop 03/28/17 at 16:44; Status DC Albumin Human 500 ml @ 0 mls/hr 1X ONCE IV ; Start 03/28/17 at 12:45; Stop at 12:54; Status DC Albumin Human 500 ml @ 125 mls/hr 1X ONCE IV Last administered on 03/28/17 16:55; Start 03/28/17 at 12:45; Stop 03/28/17 at 16:44; Status DC Albumin Human 500 ml @ 0 mls/hr 1X ONCE IV Last administered on 03/28/17 16: 55; Start 03/28/17 at 12:45; Stop 03/28/17 at 12:54; Status DC Heparin Sodium (Porcine) (Heparin Sodium) 10,000 unit STK-MED ONCE .ROUTE ; Start 03/28/17 at 15:03; Stop 03/28/17 at 15:04; Status DC Lidocaine/ Epinephrine (Xylocaine 1%-Epi 1:100,000) 20 ml STK-MED ONCE .ROUTE ; Start 03/28/17 at 15:03; Stop 03/28/17 at 15:04; Status DC Heparin Sodium/ Sodium Chloride 500 ml @ As Directed STK-MED ONCE .ROUTE ; Start 03/28/17 at 15:03; Stop 03/28/17 at 15:04; Status DC Fentanyl Citrate (Fentanyl 2ml Vial) 100 mcg STK-MED ONCE .ROUTE ; Start at 15:29; Stop 03/28/17 at 15:30; Status DC Midazolam HCl (Versed) 2 mg STK-MED ONCE .ROUTE ; Start 03/28/17 at 15:29; Stop 03/28/17 at 15:30; Status DC Heparin Sodium/ Sodium Chloride 1,000 unit 1X ONCE IART Last administered on 03/28/17 16:14; Start 03/28/17 at 15:45; Stop 03/28/17 at 15:46; Status DC Midazolam HCl (Versed) 2 mg 1X ONCE IV Last administered on 03/28/17 16:15; Start 03/28/17 at 15:45; Stop 03/28/17 at 15:46; Status DC Fentanyl Citrate (Fentanyl 2ml Vial) 100 mcg 1X ONCE IV Last administered on 03/28/17 16:14; Start 03/28/17 at 15:45; Stop 03/28/17 at 15:46; Status DC Heparin Sodium (Porcine) (Heparin Sodium) 4,000 unit 1X ONCE IV Last administered on 03/28/17 16:16; Start 03/28/17 at 15:45; Stop 03/28/17 at 15 :46; Status DC Lidocaine/ Epinephrine (Xylocaine 1%-Epi 1:100,000) 20 ml 1X ONCE INJ Last administered on 03/28/17 16:15; Start 03/28/17 at 15:45; Stop 03/28/17 at 15 :46; Status DC Ceftriaxone Sodium 1 gm/ Dextrose 50 ml @ 100 mls/hr Q24H IV Last administered on 03/28/17 19:58; Start 03/28/17 at 19:00; Stop 03/29/17 at 04 :16; Status DC Prednisone (Prednisone) 10 mg DAILY PO Last administered on 03/30/17 08:40; Start 03/28/17 at 18:00 Ceftriaxone Sodium 1 gm/ Sodium Chloride 50 ml @ 100 mls/hr Q24H IV ; Start at 04:16; Stop 03/29/17 at 04:17; Status DC Ceftriaxone Sodium 1 gm/ Sodium Chloride 50 ml @ 100 mls/hr Q24H IV Last administered on 03/29/17 18:29; Start 03/29/17 at 19:00 Heparin Sodium (Porcine) (Heparin Sodium) 2,000 unit 1X ONCE INT CAT Last administered on 03/29/17 16:30; Start 03/29/17 at 15:15; Stop 03/29/17 at 15 :24; Status DC Sodium Chloride 1,000 ml @ 1,000 mls/hr Q1H PRN IV hypotension Last administered on 03/29/17 16:30; Start 03/29/17 at 15:12; Stop 03/29/17 at 21 :11; Status DC Diphenhydramine HCl (Benadryl) 25 mg 1X PRN PRN IV ITCHING; Start 03/29/17 at 15:15; Stop 03/30/17 at 15:14 Diphenhydramine HCl (Benadryl) 25 mg 1X PRN PRN IV ITCHING; Start 03/29/17 at 15:15; Stop 03/30/17 at 15:14 Lactobacillus Rhamnosus (Culturelle) 1 cap BID PO Last administered on 08:39; Start 03/29/17 at 21:00 Albumin Human 2,000 ml @ 0 mls/hr 1X ONCE IV Last administered on 03/29/17 16:32; Start 03/29/17 at 16:00; Stop 03/29/17 at 16:01; Status DC Albumin Human 2,000 ml @ 0 mls/hr 1X ONCE IV ; Start 03/29/17 at 16:00; Stop 03/29/17 at 16:01; Status Cancel Potassium Chloride/Sodium Chloride 1,000 ml @ 75 mls/hr 1X ONCE IV ; Start at 10:15; Stop 03/30/17 at 23:34 Albumin Human 500 ml @ 125 mls/hr Q1H IV ; Start 03/30/17 at 10:15; Stop at 14:14 Active Scripts Active Hydrocodone-Apap 7.5-325 (Hydrocodone Bit/Acetaminophen) 1 Each Tablet 1 Tab PO PRN Q6HRS PRN Amlodipine Besylate 10 Mg Tablet 10 Mg PO DAILY Reported Mestinon (Pyridostigmine [place]) 60 Mg Tablet 60 Mg PO QID Cymbalta (Duloxetine Hcl) 60 Mg Capsule.dr 2 Cap PO DAILY Gabapentin 300 Mg Capsule 300 Mg PO TID Xanax (Alprazolam) 0.5 Mg Tablet 1 Mg PO PRN TID PRN Vitamin D-3 (Cholecalciferol (Vitamin D3)) 2,000 Unit Tablet 1,000 Unit PO DAILY06 Atorvastatin Calcium 10 Mg Tablet 10 Mg PO DAILY Losartan Potassium 100 Mg Tablet 100 Mg PO DAILY Bupropion Xl (Bupropion Hcl) 300 Mg Tab.er.24h 300 Mg PO DAILY Vitals/I & O Vital Sign - Last 24 Hours 03/29/17 03/29/17 03/29/17 03/29/17 18:29 19:35 20:03 23:30 Temp 97.9 97.6 97.9 97.6 Pulse 80 71 Resp 18 20 17 B/P (MAP) 91/49 (63) 97/52 (67) Pulse Ox 96 95 98 O2 Delivery Room Air Room Air Room Air Room Air 03/30/17 03/30/17 03/30/17 03/30/17 03:30 07:00 07:30 08:40 Temp 98.2 97.4 98.2 97.4 Pulse 64 80 64 Resp 16 17 B/P (MAP) 111/52 (71) 137/47 (77) 111/52 Pulse Ox 97 96 O2 Delivery Room Air Room Air Room Air 03/30/17 03/30/17 09:00 11:00 Temp 97.7 97.7 Pulse 64 72 Resp 17 B/P (MAP) 111/52 108/57 (74) Pulse Ox 96 O2 Delivery Room Air Intake and Output 03/30/17 03/30/17 03/31/17 14:59 22:59 06:59 Intake Total 250 ml Balance 250 ml NAIN PAZ MD Mar 30, 2017 11:53
--- NOTE | 2017-03-30 12:40 | PDOC ---
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 Intake and Output Intake and Output 03/31/17 07:00 Intake Total 250 ml Balance 250 ml Intake Oral 250 ml Labs Labs Laboratory Tests Test 03/30/17 04:28 White Blood Count 11.7 x10^3/uL (4.0-11.0) Red Blood Count 5.11 x10^6/uL (3.50-5.40) Hemoglobin 12.7 g/dL (12.0-15.5) Hematocrit 41.0 % (36.0-47.0) Mean Corpuscular Volume 80 fL (79-100) Mean Corpuscular Hemoglobin 25 pg (25-35) Mean Corpuscular Hemoglobin Concent 31 g/dL (31-37) Red Cell Distribution Width 20.2 % (11.5-14.5) Platelet Count 269 x10^3/uL (140-400) Neutrophils (%) (Auto) 54 % (31-73) Lymphocytes (%) (Auto) 32 % (24-48) Monocytes (%) (Auto) 11 % (0-9) Eosinophils (%) (Auto) 2 % (0-3) Basophils (%) (Auto) 1 % (0-3) Neutrophils # (Auto) 6.3 x10^3uL (1.8-7.7) Lymphocytes # (Auto) 3.8 x10^3/uL (1.0-4.8) Monocytes # (Auto) 1.3 x10^3/uL (0.0-1.1) Eosinophils # (Auto) 0.3 x10^3/uL (0.0-0.7) Basophils # (Auto) 0.1 x10^3/uL (0.0-0.2) Prothrombin Time 15.6 SEC (11.7-14.0) Prothromb Time International Ratio 1.3 (0.8-1.1) Activated Partial Thromboplast Time 39 SEC (24-38) Fibrinogen 112 mg/dL (200-440) Sodium Level 142 mmol/L (136-145) Potassium Level 3.5 mmol/L (3.5-5.1) Chloride Level 109 mmol/L (98-107) Carbon Dioxide Level 28 mmol/L (21-32) Anion Gap 5 (6-14) Blood Urea Nitrogen 24 mg/dL (7-20) Creatinine 1.0 mg/dL (0.6-1.0) Estimated GFR (Cockcroft-Gault) 55.3 BUN/Creatinine Ratio 24 (6-20) Glucose Level 105 mg/dL (70-99) Calcium Level 9.0 mg/dL (8.5-10.1) Total Bilirubin 0.2 mg/dL (0.2-1.0) Aspartate Amino Transf (AST/SGOT) 10 U/L (15-37) Alanine Aminotransferase (ALT/SGPT) 13 U/L (14-59) Alkaline Phosphatase 40 U/L (46-116) Total Protein 5.0 g/dL (6.4-8.2) Albumin 3.4 g/dL (3.4-5.0) Albumin/Globulin Ratio 2.1 (1.0-1.7) Micro Micro Microbiology 03/27/17 Urine Culture - Preliminary, Resulted 03/27/17 Urine Culture Result 1 (LUCHO) - Preliminary, Resulted 03/27/17 Urine Culture Result 2 (LUCHO) - Preliminary, Resulted 03/27/17 Antimicrobic Susceptibility - Preliminary, Resulted Review of Systems Constitutional: yes: weakness, alert, oriented Ears/Nose/Throat: Yes: no symptom reported Eyes: Yes: no symptom reported Pulmonary: Yes no symptom reported Cardiovascular: Yes no symptom reported Gastrointestional: Yes: no symptom reported Genitourinary: Yes: no symptom reported Musculoskeletal: Yes: other (DIFFUSE UE AND LE WEAKNESS) Psychiatric/Neurological: Yes: no symptom reported Endocrine: Yes: no symptom reported Physical Exam General Appearance: no apparent distress Skin: warm Respiratory: bilateral CTA Heart: S1S2 Abdomen: soft, bowel sounds present Genitourinary: bladder flat Extremities: pulses present Neurology: alert, oriented Musculoskeletal: low back pain, Osteoarthritis Assessment Assessment IMP MYASTHENIA GRAVIS LOW K - RESOLVED PLAN TPE #3 TODAY EXCHANGE WITH ALB AND SALINE WILL NEED FFP TODAY YOKO CORDOBA MD Mar 30, 2017 12:40
[2017-03-30] MEDS ORDERED: HEPARIN for IV BOLUS 10,000 UNIT/10 ML VIAL. IV ONE (14:30)
--- NOTE | 2017-03-30 15:16 | PDOC ---
PROGRESS NOTES Assessment Assessment MG exacerbation. Slurred speech as her symptoms of MG. Generalized weakness. Recent left superior and medial dislocation of femoral prothesis. Vit B12 deficiency. HTN HLD Falls ZENON Right shoulder pain, arthritis. Obesity. Emotional stress. RECOMMENDATIONS/PLAN: Plasma exchange, day 3 on 03/30/17. 1st exchange started on 03/28/17. Plan for 5 days treatment. Consulted Nephrology. Continue Mestinon, 60 mg qid. Prednisone 10 mg daily, started on 03/29/17. Treat medical diseases. Treat UTI. OT/PT. 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 She was hospitalized in 02/2017 and received rehab as well. She just went ot home a week ago after rehab, but she has been having worsening symptoms of generalized weakness to the point that she was difficult to lift her arms and walk. Her speech again become slurred. She felt easily got tired at home. Patient stated her symptoms of MG are improved on 03/30/17, but she still has strong emotional stress due to to her daughter's psychiatric problems. Past Medical History Cardiovascular: CAD, Other Pulmonary: Asthma CENTRAL NERVOUS SYSTEM: Peripheral neuropathy Endocrine: Diabetes Past Surgical History Appendectomy, Arthroscopy, Total hip replacement, Hysterectomy, Other Family History Hypertension Social History Smoke: No ALCOHOL: none Drugs: None ALLERGY: Reviewed. MEDICATIONS: Refer to MAR REVIEW OF SYSTEMS: Constitutional: No malnutrition, weight loss, cachexia. Head: No traumatic brain or head injury. Skin: No edema, or rash. Ear: No infection. Eyes: No vision loss or color blindness. Nose: No bleeding or purulent discharges. Hearing: Hearing decrease. Neck: No injury. Breast: No history of cancer, masses,or discharges. Cardiac: HTN, HLD. Pulmonary: ZENON GI: No GI ulcer, GI bleeding. Urinary/genital: UTI. Endocrinologic: Obesity. Skeletomuscular: Falls.. Neurological: see HP. Psychiatric: Denies drug use/abuse. Otherwise, not [id number] review of systems. PHYSICAL EXAMINATION: General appearance is in subacute distress. HEENT: Normocephalic and nontraumatic. Eyes, nose, ears, and throat are unremarkable. Neck is supple. No lymphadenopathy. No bruits are heard over the carotid artery. No crepitus. Cardiovascular: S1, S2, regular rate and rhythm. Pulmonary: Clear to auscultation bilaterally. Abdomen: Bowel sounds are positive. Abdomen is soft, nontender, and nondistended. Extremities: No rash, lesions, or edema. No restriction of range of motion NEUROLOGICAL EXAMINATION: Alert Oriented to time, place and person. PERRL. EOMI. CN: no focal findings. Muscle tone: within normal. Muscle strength: 4 right UE, 4+ the rest. DTR: 1-2 Plantar reflex: Flexor response bilaterally Gait: Able to walk with a walker and assistance. Sensory exam: no abnormal findings. No cerebellar signs elicited. F-T-N test fine. Objective Objective Vital Signs Date Time Temp Pulse Resp B/P (MAP) Pulse Ox O2 Delivery O2 Flow Rate FiO2 03/30/17 11:00 97.7 72 17 108/57 (74) 96 Room Air 97.7 Intake and Output 03/31/17 06:59 Intake Total 500 ml Balance 500 ml Intake Oral 500 ml Vitals Signs Vitals VS - Last 72 Hours, by Label Date Time Temp Pulse Resp B/P (MAP) Pulse Ox O2 Delivery O2 Flow Rate FiO2 03/30/17 11:00 97.7 72 17 108/57 (74) 96 Room Air 97.7 03/30/17 09:00 64 111/52 03/30/17 08:40 64 111/52 03/30/17 07:30 Room Air 03/30/17 07:00 97.4 80 17 137/47 (77) 96 Room Air 97.4 03/30/17 03:30 98.2 64 16 111/52 (71) 97 Room Air 98.2 03/29/17 23:30 97.6 71 17 97/52 (67) 98 Room Air 97.6 03/29/17 20:03 Room Air 03/29/17 19:35 97.9 80 20 91/49 (63) 95 Room Air 97.9 03/29/17 18:29 18 96 Room Air 03/29/17 11:00 97.8 65 20 111/58 (75) 96 Room Air 97.8 03/29/17 10:43 18 96 Room Air 03/29/17 09:43 95 Room Air 03/29/17 09:39 62 116/63 10/25/17 09:38 62 116/63 03/29/17 08:10 Room Air 03/29/17 07:00 97.6 62 20 116/63 (80) 95 Room Air 97.6 Laboratory Laboratory Laboratory Tests Test 03/30/17 04:28 White Blood Count 11.7 x10^3/uL (4.0-11.0) Red Blood Count 5.11 x10^6/uL (3.50-5.40) Hemoglobin 12.7 g/dL (12.0-15.5) Hematocrit 41.0 % (36.0-47.0) Mean Corpuscular Volume 80 fL (79-100) Mean Corpuscular Hemoglobin 25 pg (25-35) Mean Corpuscular Hemoglobin Concent 31 g/dL (31-37) Red Cell Distribution Width 20.2 % (11.5-14.5) Platelet Count 269 x10^3/uL (140-400) Neutrophils (%) (Auto) 54 % (31-73) Lymphocytes (%) (Auto) 32 % (24-48) Monocytes (%) (Auto) 11 % (0-9) Eosinophils (%) (Auto) 2 % (0-3) Basophils (%) (Auto) 1 % (0-3) Neutrophils # (Auto) 6.3 x10^3uL (1.8-7.7) Lymphocytes # (Auto) 3.8 x10^3/uL (1.0-4.8) Monocytes # (Auto) 1.3 x10^3/uL (0.0-1.1) Eosinophils # (Auto) 0.3 x10^3/uL (0.0-0.7) Basophils # (Auto) 0.1 x10^3/uL (0.0-0.2) Prothrombin Time 15.6 SEC (11.7-14.0) Prothromb Time International Ratio 1.3 (0.8-1.1) Activated Partial Thromboplast Time 39 SEC (24-38) Fibrinogen 112 mg/dL (200-440) Sodium Level 142 mmol/L (136-145) Potassium Level 3.5 mmol/L (3.5-5.1) Chloride Level 109 mmol/L (98-107) Carbon Dioxide Level 28 mmol/L (21-32) Anion Gap 5 (6-14) Blood Urea Nitrogen 24 mg/dL (7-20) Creatinine 1.0 mg/dL (0.6-1.0) Estimated GFR (Cockcroft-Gault) 55.3 BUN/Creatinine Ratio 24 (6-20) Glucose Level 105 mg/dL (70-99) Calcium Level 9.0 mg/dL (8.5-10.1) Total Bilirubin 0.2 mg/dL (0.2-1.0) Aspartate Amino Transf (AST/SGOT) 10 U/L (15-37) Alanine Aminotransferase (ALT/SGPT) 13 U/L (14-59) Alkaline Phosphatase 40 U/L (46-116) Total Protein 5.0 g/dL (6.4-8.2) Albumin 3.4 g/dL (3.4-5.0) Albumin/Globulin Ratio 2.1 (1.0-1.7) Microbiology 03/27/17 Urine Culture - Preliminary, Resulted 03/27/17 Urine Culture Result 1 (LUCHO) - Preliminary, Resulted 03/27/17 Urine Culture Result 2 (LUCHO) - Preliminary, Resulted 03/27/17 Antimicrobic Susceptibility - Preliminary, Resulted Medication Medications Current Medications Albumin Human 500 ml @ 125 mls/hr Q1H IV ; Start 03/30/17 at 10:15; Stop at 14:14; Status DC Albumin Human 2,000 ml @ 0 mls/hr 1X ONCE IV Last administered on 03/29/17t 16:32; Start 03/29/17 at 16:00; Stop 03/29/17 at 16:01; Status DC Albumin Human 2,000 ml @ 0 mls/hr 1X ONCE IV ; Start 03/29/17 at 16:00; Stop 03/29/17 at 16:01; Status Cancel Ceftriaxone Sodium 1 gm/ Sodium Chloride 50 ml @ 100 mls/hr Q24H IV Last administered on 03/29/17t 18:29; Start 03/29/17 at 19:00 Diphenhydramine HCl (Benadryl) 25 mg 1X PRN PRN IV ITCHING; Start 03/29/17 at 15:15; Stop 03/30/17 at 15:14 Diphenhydramine HCl (Benadryl) 25 mg 1X PRN PRN IV ITCHING; Start 03/29/17 at 15:15; Stop 03/30/17 at 15:14 Heparin Sodium (Porcine) (Heparin Sodium) 2,000 unit 1X ONCE INT CAT Last administered on 03/29/17 16:30; Start 03/29/17 at 15:15; Stop 03/29/17 at 15 :24; Status DC Heparin Sodium (Porcine) (Heparin Sodium) 5,000 unit 1X ONCE IV ; Start at 14:30; Stop 03/30/17 at 14:39; Status DC Heparin Sodium (Porcine) (Heparin Sodium) 10,000 unit STK-MED ONCE .ROUTE ; Start 03/30/17 at 14:39; Stop 03/30/17 at 14:40; Status DC Lactobacillus Rhamnosus (Culturelle) 1 cap BID PO Last administered on 08:39; Start 03/29/17 at 21:00 Potassium Chloride/Sodium Chloride 1,000 ml @ 75 mls/hr 1X ONCE IV ; Start at 10:15; Stop 03/30/17 at 23:34 Comment Review of Relevant I have reviewed the following items antonio (where applicable) has been applied. ELEANOR KENNEY MD Mar 30, 2017 15:16
[2017-03-30] MEDS: ALBUMIN HUMAN 5% 500 ML IV SCH (15:30)
[2017-03-30 19:00] VITALS: BP 114/57
[2017-03-30] MEDS: ENOXAPARIN 40 MG/0.4 ML SYRINGE. SQ SCH (20:24)
[2017-03-30] MEDS: ATORVASTATIN CALCIUM 10 MG TABLET. PO SCH (20:25)
[2017-03-30] MEDS: ALPRAZolam 1 MG TABLET PO PRN (22:07)
[2017-03-30] MEDS: HYDROcodone/APAP 7.5/325MG 1 TAB TABLET PO PRN (22:08)
[2017-03-30 23:57] VITALS: BP 115/74
[2017-03-31] VITALS (7 sets, daily range): BP systolic 101–138; BP diastolic 40–87
[2017-03-31 04:20] LABS: BASO # 0.1 x10^3/uL (0.0-0.2); BASO % 1 % (0-3); EOS % 2 % (0-3); HEMATOCRIT 37.7 % (36.0-47.0); LYMPH # 3.3 x10^3/uL (1.0-4.8); LYMPH % 30 % (24-48); MEAN CORPUSCULAR HEMOGLOBIN 26 pg (25-35); MEAN CORPUSCULAR HGB CONC 32 g/dL (31-37); MEAN CORPUSCULAR VOLUME 81 fL (79-100); MONO % 10 % (0-9); NEUT % 58 % (31-73); PLATELET COUNT 223 x10^3/uL (140-400); RED BLOOD COUNT 4.68 x10^6/uL (3.50-5.40); RED CELL DISTRIBUTION WIDTH 19.8 % (11.5-14.5); WHITE BLOOD COUNT 10.9 x10^3/uL (4.0-11.0)
[2017-03-31 04:54] LABS: ALBUMIN/GLOBULIN RATIO 1.8 (1.0-1.7); CALCIUM 8.4 mg/dL (8.5-10.1); CREATININE 0.6 mg/dL (0.6-1.0); GFR 99.7; POTASSIUM 3.5 mmol/L (3.5-5.1); TOTAL BILIRUBIN 0.2 mg/dL (0.2-1.0); TOTAL PROTEIN 4.7 g/dL (6.4-8.2)
[2017-03-31 05:07] LABS: INR 1.3 (0.8-1.1); PROTHROMBIN TIME PATIENT 15.8 SEC (11.7-14.0)
[2017-03-31] MEDS: GABAPENTIN 300 MG CAPSULE. PO SCH ×3 (09:45→20:34)
[2017-03-31] MEDS: buPROPion XL 150 MG TAB.ER.24H. PO SCH (09:46)
[2017-03-31] MEDS: LOSARTAN POTASSIUM 50 MG TABLET. PO SCH (09:46)
[2017-03-31] MEDS: CHOLECALCIFEROL (VITAMIN D3) 1,000 UNIT TABLET PO SCH (09:46)
[2017-03-31] MEDS: DULoxetine HCL 30 MG CAPSULE.DR PO SCH (09:46)
[2017-03-31] MEDS: LACTOBACILLUS RHAMNOSUS GG 1 CAPSULE. PO SCH ×2 (09:46→20:34)
[2017-03-31] MEDS: PYRIDOSTIGMINE BROMIDE 60 MG TABLET PO SCH ×4 (09:46→20:34)
[2017-03-31] MEDS: predniSONE 10 MG TABLET PO SCH (09:46)
[2017-03-31] MEDS: amLODIPine BESYLATE 10 MG TABLET PO SCH (09:47)
[2017-03-31] MEDS ORDERED: NORMAL SALINE IV ONE (10:00)
[2017-03-31] MEDS ORDERED: POTASSIUM ACETATE IV ONE (10:00)
[2017-03-31] MEDS ORDERED: ALBUMIN HUMAN 5% 1,500 ML IV ONE (10:00)
[2017-03-31] MEDS: ALBUMIN HUMAN 5% 500 ML IV SCH (11:38)
--- NOTE | 2017-03-31 12:24 | PDOC ---
PROGRESS NOTES Chief Complaint Chief Complaint Extremity weakness with myasthenia gravis 1. MG 2. Hx hip dislocation (artificial joint) 3. CAD 4. HTN 5. HLD 6. Hypokalemia 7. Hx pericarditis 8. ZENON 9. B12 deficiency 10. Peripheral neuropathy 11. Morbid obesity 12. R subconjunctival hemorrhage 14. external stressors: in rehab, daughter attempted suicide. History of Present Illness History of Present Illness Pt is a pleasant 66 year old female who presents with myasthenia gravis. Pt was seen at bedside resting comfortably but is very weak. Pt is currently receiving therapeutic plasma exchange. Will continue plasma exchange tomorrow as well. Pt is on Bipap. Examination of pt's eyes showed marked weakness. Pt followed by neurology and nephrology. Will continue to monitor. Vitals Vitals Vital Signs Date Time Temp Pulse Resp B/P (MAP) Pulse Ox O2 Delivery O2 Flow Rate FiO2 03/31/17 11:00 97.5 82 22 123/58 (79) 97 BiPAP/CPAP 97.5 Physical Exam General: Alert, Oriented X3, Cooperative, No acute distress Heart: Regular rate, Normal S1, Normal S2 Lungs: Clear Abdomen: Normal bowel sounds, No tenderness Extremities: No clubbing, No edema Skin: No rashes, No significant lesion Labs LABS Laboratory Tests Test 03/31/17 03:08 03/31/17 07:10 White Blood Count 10.9 x10^3/uL (4.0-11.0) Red Blood Count 4.68 x10^6/uL (3.50-5.40) Hemoglobin 12.0 g/dL (12.0-15.5) Hematocrit 37.7 % (36.0-47.0) Mean Corpuscular Volume 81 fL (79-100) Mean Corpuscular Hemoglobin 26 pg (25-35) Mean Corpuscular Hemoglobin Concent 32 g/dL (31-37) Red Cell Distribution Width 19.8 % (11.5-14.5) Platelet Count 223 x10^3/uL (140-400) Neutrophils (%) (Auto) 58 % (31-73) Lymphocytes (%) (Auto) 30 % (24-48) Monocytes (%) (Auto) 10 % (0-9) Eosinophils (%) (Auto) 2 % (0-3) Basophils (%) (Auto) 1 % (0-3) Neutrophils # (Auto) 6.4 x10^3uL (1.8-7.7) Lymphocytes # (Auto) 3.3 x10^3/uL (1.0-4.8) Monocytes # (Auto) 1.0 x10^3/uL (0.0-1.1) Eosinophils # (Auto) 0.2 x10^3/uL (0.0-0.7) Basophils # (Auto) 0.1 x10^3/uL (0.0-0.2) Prothrombin Time 15.8 SEC (11.7-14.0) Prothromb Time International Ratio 1.3 (0.8-1.1) Activated Partial Thromboplast Time 38 SEC (24-38) Fibrinogen 145 mg/dL (200-440) Sodium Level 146 mmol/L (136-145) Potassium Level 3.5 mmol/L (3.5-5.1) Chloride Level 113 mmol/L (98-107) Carbon Dioxide Level 28 mmol/L (21-32) Anion Gap 5 (6-14) Blood Urea Nitrogen 14 mg/dL (7-20) Creatinine 0.6 mg/dL (0.6-1.0) Estimated GFR (Cockcroft-Gault) 99.7 BUN/Creatinine Ratio 23 (6-20) Glucose Level 80 mg/dL (70-99) Calcium Level 8.4 mg/dL (8.5-10.1) Magnesium Level 1.8 mg/dL (1.8-2.4) Total Bilirubin 0.2 mg/dL (0.2-1.0) Aspartate Amino Transf (AST/SGOT) 12 U/L (15-37) Alanine Aminotransferase (ALT/SGPT) 13 U/L (14-59) Alkaline Phosphatase 41 U/L (46-116) Total Protein 4.7 g/dL (6.4-8.2) Albumin 3.0 g/dL (3.4-5.0) Albumin/Globulin Ratio 1.8 (1.0-1.7) Glucose (Fingerstick) 73 mg/dL (70-99) Review of Systems Review of Systems Pt complains of weakness and some emotional stressors due to family dynamics Assessment and Plan Assessmemt and Plan Problems Medical Problems: (1) Hyperglycemia Status: Acute (2) Urinary tract infection Status: Acute Assessment: 1. MG 2. Hx hip dislocation (artificial joint) 3. CAD 4. HTN 5. HLD 6. Hypokalemia 7. Hx pericarditis 8. ZENON 9. B12 deficiency 10. Peripheral neuropathy 11. Morbid obesity 12. R subconjunctival hemorrhage 14. external stressors: in rehab, daughter attempted suicide Plan: Continue plasma exchange Continue bipap Continue monitoring muscle strength Continue home meds PT/OT Recheck labs Appreciate subspecialty input Problems: Comment Review of Relevant I have reviewed the following items antonio (where applicable) has been applied. Labs Laboratory Tests Test 03/30/17 04:28 03/31/17 03:08 03/31/17 07:10 White Blood Count 11.7 x10^3/uL (4.0-11.0) 10.9 x10^3/uL (4.0-11.0) Red Blood Count 5.11 x10^6/uL (3.50-5.40) 4.68 x10^6/uL (3.50-5.40) Hemoglobin 12.7 g/dL (12.0-15.5) 12.0 g/dL (12.0-15.5) Hematocrit 41.0 % (36.0-47.0) 37.7 % (36.0-47.0) Mean Corpuscular Volume 80 fL (79-100) 81 fL (79-100) Mean Corpuscular Hemoglobin 25 pg (25-35) 26 pg (25-35) Mean Corpuscular Hemoglobin Concent 31 g/dL (31-37) 32 g/dL (31-37) Red Cell Distribution Width 20.2 % (11.5-14.5) 19.8 % (11.5-14.5) Platelet Count 269 x10^3/uL (140-400) 223 x10^3/uL (140-400) Neutrophils (%) (Auto) 54 % (31-73) 58 % (31-73) Lymphocytes (%) (Auto) 32 % (24-48) 30 % (24-48) Monocytes (%) (Auto) 11 % (0-9) 10 % (0-9) Eosinophils (%) (Auto) 2 % (0-3) 2 % (0-3) Basophils (%) (Auto) 1 % (0-3) 1 % (0-3) Neutrophils # (Auto) 6.3 x10^3uL (1.8-7.7) 6.4 x10^3uL (1.8-7.7) Lymphocytes # (Auto) 3.8 x10^3/uL (1.0-4.8) 3.3 x10^3/uL (1.0-4.8) Monocytes # (Auto) 1.3 x10^3/uL (0.0-1.1) 1.0 x10^3/uL (0.0-1.1) Eosinophils # (Auto) 0.3 x10^3/uL (0.0-0.7) 0.2 x10^3/uL (0.0-0.7) Basophils # (Auto) 0.1 x10^3/uL (0.0-0.2) 0.1 x10^3/uL (0.0-0.2) Prothrombin Time 15.6 SEC (11.7-14.0) 15.8 SEC (11.7-14.0) Prothromb Time International Ratio 1.3 (0.8-1.1) 1.3 (0.8-1.1) Activated Partial Thromboplast Time 39 SEC (24-38) 38 SEC (24-38) Fibrinogen 112 mg/dL (200-440) 145 mg/dL (200-440) Sodium Level 142 mmol/L (136-145) 146 mmol/L (136-145) Potassium Level 3.5 mmol/L (3.5-5.1) 3.5 mmol/L (3.5-5.1) Chloride Level 109 mmol/L (98-107) 113 mmol/L (98-107) Carbon Dioxide Level 28 mmol/L (21-32) 28 mmol/L (21-32) Anion Gap 5 (6-14) 5 (6-14) Blood Urea Nitrogen 24 mg/dL (7-20) 14 mg/dL (7-20) Creatinine 1.0 mg/dL (0.6-1.0) 0.6 mg/dL (0.6-1.0) Estimated GFR (Cockcroft-Gault) 55.3 99.7 BUN/Creatinine Ratio 24 (6-20) 23 (6-20) Glucose Level 105 mg/dL (70-99) 80 mg/dL (70-99) Calcium Level 9.0 mg/dL (8.5-10.1) 8.4 mg/dL (8.5-10.1) Total Bilirubin 0.2 mg/dL (0.2-1.0) 0.2 mg/dL (0.2-1.0) Aspartate Amino Transf (AST/SGOT) 10 U/L (15-37) 12 U/L (15-37) Alanine Aminotransferase (ALT/SGPT) 13 U/L (14-59) 13 U/L (14-59) Alkaline Phosphatase 40 U/L (46-116) 41 U/L (46-116) Total Protein 5.0 g/dL (6.4-8.2) 4.7 g/dL (6.4-8.2) Albumin 3.4 g/dL (3.4-5.0) 3.0 g/dL (3.4-5.0) Albumin/Globulin Ratio 2.1 (1.0-1.7) 1.8 (1.0-1.7) Magnesium Level 1.8 mg/dL (1.8-2.4) Glucose (Fingerstick) 73 mg/dL (70-99) Laboratory Tests Test 03/31/17 03:08 03/31/17 07:10 White Blood Count 10.9 x10^3/uL (4.0-11.0) Red Blood Count 4.68 x10^6/uL (3.50-5.40) Hemoglobin 12.0 g/dL (12.0-15.5) Hematocrit 37.7 % (36.0-47.0) Mean Corpuscular Volume 81 fL (79-100) Mean Corpuscular Hemoglobin 26 pg (25-35) Mean Corpuscular Hemoglobin Concent 32 g/dL (31-37) Red Cell Distribution Width 19.8 % (11.5-14.5) Platelet Count 223 x10^3/uL (140-400) Neutrophils (%) (Auto) 58 % (31-73) Lymphocytes (%) (Auto) 30 % (24-48) Monocytes (%) (Auto) 10 % (0-9) Eosinophils (%) (Auto) 2 % (0-3) Basophils (%) (Auto) 1 % (0-3) Neutrophils # (Auto) 6.4 x10^3uL (1.8-7.7) Lymphocytes # (Auto) 3.3 x10^3/uL (1.0-4.8) Monocytes # (Auto) 1.0 x10^3/uL (0.0-1.1) Eosinophils # (Auto) 0.2 x10^3/uL (0.0-0.7) Basophils # (Auto) 0.1 x10^3/uL (0.0-0.2) Prothrombin Time 15.8 SEC (11.7-14.0) Prothromb Time International Ratio 1.3 (0.8-1.1) Activated Partial Thromboplast Time 38 SEC (24-38) Fibrinogen 145 mg/dL (200-440) Sodium Level 146 mmol/L (136-145) Potassium Level 3.5 mmol/L (3.5-5.1) Chloride Level 113 mmol/L (98-107) Carbon Dioxide Level 28 mmol/L (21-32) Anion Gap 5 (6-14) Blood Urea Nitrogen 14 mg/dL (7-20) Creatinine 0.6 mg/dL (0.6-1.0) Estimated GFR (Cockcroft-Gault) 99.7 BUN/Creatinine Ratio 23 (6-20) Glucose Level 80 mg/dL (70-99) Calcium Level 8.4 mg/dL (8.5-10.1) Magnesium Level 1.8 mg/dL (1.8-2.4) Total Bilirubin 0.2 mg/dL (0.2-1.0) Aspartate Amino Transf (AST/SGOT) 12 U/L (15-37) Alanine Aminotransferase (ALT/SGPT) 13 U/L (14-59) Alkaline Phosphatase 41 U/L (46-116) Total Protein 4.7 g/dL (6.4-8.2) Albumin 3.0 g/dL (3.4-5.0) Albumin/Globulin Ratio 1.8 (1.0-1.7) Glucose (Fingerstick) 73 mg/dL (70-99) Microbiology 03/27/17 Urine Culture - Final, Complete 03/27/17 Urine Culture Result 1 (LUCHO) - Final, Complete 03/27/17 Urine Culture Result 2 (LUCHO) - Final, Complete 03/27/17 Antimicrobic Susceptibility - Final, Complete Medications Current Medications Alprazolam (Xanax) 1 mg PRN Q8HRS PRN PO ANXIETY Last administered on 22:07; Start 03/27/17 at 18:45 Amlodipine Besylate (Norvasc) 10 mg DAILY PO Last administered on 03/31/17 09 :47; Start 03/28/17 at 09:00 Atorvastatin Calcium (Lipitor) 10 mg QHS PO Last administered on 03/30/17 20: 25; Start 03/28/17 at 21:00 Acetaminophen/ Hydrocodone Bitart (Lortab 7.5/325) 1 tab PRN Q6HRS PRN PO PAIN Last administered on 03/30/17 22:08; Start 03/27/17 at 18:45 Pyridostigmine Mobile (Mestinon) 60 mg QID PO Last administered on 03/31/17 09:46; Start 03/27/17 at 21:00 Bupropion HCl (Wellbutrin Xl) 300 mg DAILY PO Last administered on 03/31/17 09:46; Start 03/28/17 at 09:00 Vitamin D (Vitamin D3) 1,000 unit DAILY PO Last administered on 03/31/17 09: 46; Start 03/28/17 at 09:00 Duloxetine HCl (Cymbalta) 120 mg DAILY PO Last administered on 03/31/17 09:46 ; Start 03/28/17 at 09:00 Gabapentin (Neurontin) 300 mg TID PO Last administered on 03/31/17 09:45; Start 03/27/17 at 21:00 Losartan Potassium (Cozaar) 100 mg DAILY PO Last administered on 03/31/17 09: 46; Start 03/28/17 at 09:00 Acetaminophen (Tylenol) 650 mg PRN Q6HRS PRN PO FEVER; Start 03/27/17 at 18:45 Ondansetron HCl (Zofran) 4 mg PRN Q6HRS PRN IV NAUSEA/VOMITING Last administered on 03/28/17 19:58; Start 03/27/17 at 18:45 Morphine Sulfate 2 mg PRN Q2HR PRN IV PAIN; Start 03/27/17 at 18:45 Tramadol HCl (Ultram) 50 mg PRN Q6HRS PRN PO PAIN Last administered on 19:59; Start 03/27/17 at 18:45 Hydralazine HCl (Apresoline Inj) 10 mg PRN Q4HRS PRN IVP ELEVATED BP, SEE COMMENTS; Start 03/27/17 at 18:45 Docusate Sodium (Colace) 100 mg PRN DAILY PRN PO CONSTIPATION; Start 03/27/17 at 18:45 Enoxaparin Sodium (Lovenox 40mg Syringe) 40 mg Q24H SQ Last administered on 20:24; Start 03/27/17 at 21:00 Ceftriaxone Sodium 50 ml @ 100 mls/hr 1X ONCE IV Last administered on 19:32; Start 03/27/17 at 19:30; Stop 03/27/17 at 19:59; Status DC Potassium Chloride (Klor-Con) 40 meq 1X ONCE PO Last administered on 13:31; Start 03/28/17 at 12:00; Stop 03/28/17 at 12:01; Status DC Albumin Human 500 ml @ 0 mls/hr 1X ONCE IV Last administered on 03/28/17 16: 54; Start 03/28/17 at 12:45; Stop 03/28/17 at 12:54; Status DC Albumin Human 500 ml @ 125 mls/hr 1X ONCE IV Last administered on 03/28/17 16:54; Start 03/28/17 at 12:45; Stop 03/28/17 at 16:44; Status DC Albumin Human 500 ml @ 0 mls/hr 1X ONCE IV ; Start 03/28/17 at 12:45; Stop at 12:54; Status DC Albumin Human 500 ml @ 125 mls/hr 1X ONCE IV Last administered on 03/28/17 16:55; Start 03/28/17 at 12:45; Stop 03/28/17 at 16:44; Status DC Albumin Human 500 ml @ 0 mls/hr 1X ONCE IV Last administered on 03/28/17 16: 55; Start 03/28/17 at 12:45; Stop 03/28/17 at 12:54; Status DC Heparin Sodium (Porcine) (Heparin Sodium) 10,000 unit STK-MED ONCE .ROUTE ; Start 03/28/17 at 15:03; Stop 03/28/17 at 15:04; Status DC Lidocaine/ Epinephrine (Xylocaine 1%-Epi 1:100,000) 20 ml STK-MED ONCE .ROUTE ; Start 03/28/17 at 15:03; Stop 03/28/17 at 15:04; Status DC Heparin Sodium/ Sodium Chloride 500 ml @ As Directed STK-MED ONCE .ROUTE ; Start 03/28/17 at 15:03; Stop 03/28/17 at 15:04; Status DC Fentanyl Citrate (Fentanyl 2ml Vial) 100 mcg STK-MED ONCE .ROUTE ; Start at 15:29; Stop 03/28/17 at 15:30; Status DC Midazolam HCl (Versed) 2 mg STK-MED ONCE .ROUTE ; Start 03/28/17 at 15:29; Stop 03/28/17 at 15:30; Status DC Heparin Sodium/ Sodium Chloride 1,000 unit 1X ONCE IART Last administered on 03/28/17 16:14; Start 03/28/17 at 15:45; Stop 03/28/17 at 15:46; Status DC Midazolam HCl (Versed) 2 mg 1X ONCE IV Last administered on 03/28/17 16:15; Start 03/28/17 at 15:45; Stop 03/28/17 at 15:46; Status DC Fentanyl Citrate (Fentanyl 2ml Vial) 100 mcg 1X ONCE IV Last administered on 03/28/17 16:14; Start 03/28/17 at 15:45; Stop 03/28/17 at 15:46; Status DC Heparin Sodium (Porcine) (Heparin Sodium) 4,000 unit 1X ONCE IV Last administered on 03/28/17 16:16; Start 03/28/17 at 15:45; Stop 03/28/17 at 15 :46; Status DC Lidocaine/ Epinephrine (Xylocaine 1%-Epi 1:100,000) 20 ml 1X ONCE INJ Last administered on 03/28/17 16:15; Start 03/28/17 at 15:45; Stop 03/28/17 at 15 :46; Status DC Ceftriaxone Sodium 1 gm/ Dextrose 50 ml @ 100 mls/hr Q24H IV Last administered on 03/28/17 19:58; Start 03/28/17 at 19:00; Stop 03/29/17 at 04 :16; Status DC Prednisone (Prednisone) 10 mg DAILY PO Last administered on 03/31/17 09:46; Start 03/28/17 at 18:00 Ceftriaxone Sodium 1 gm/ Sodium Chloride 50 ml @ 100 mls/hr Q24H IV ; Start at 04:16; Stop 03/29/17 at 04:17; Status DC Ceftriaxone Sodium 1 gm/ Sodium Chloride 50 ml @ 100 mls/hr Q24H IV Last administered on 03/30/17 16:55; Start 03/29/17 at 19:00 Heparin Sodium (Porcine) (Heparin Sodium) 2,000 unit 1X ONCE INT CAT Last administered on 03/29/17 16:30; Start 03/29/17 at 15:15; Stop 03/29/17 at 15 :24; Status DC Sodium Chloride 1,000 ml @ 1,000 mls/hr Q1H PRN IV hypotension Last administered on 03/29/17 16:30; Start 03/29/17 at 15:12; Stop 03/29/17 at 21 :11; Status DC Diphenhydramine HCl (Benadryl) 25 mg 1X PRN PRN IV ITCHING; Start 03/29/17 at 15:15; Stop 03/30/17 at 15:14; Status DC Diphenhydramine HCl (Benadryl) 25 mg 1X PRN PRN IV ITCHING; Start 03/29/17 at 15:15; Stop 03/30/17 at 15:14; Status DC Lactobacillus Rhamnosus (Culturelle) 1 cap BID PO Last administered on 09:46; Start 03/29/17 at 21:00 Albumin Human 2,000 ml @ 0 mls/hr 1X ONCE IV Last administered on 03/29/17 16:32; Start 03/29/17 at 16:00; Stop 03/29/17 at 16:01; Status DC Albumin Human 2,000 ml @ 0 mls/hr 1X ONCE IV ; Start 03/29/17 at 16:00; Stop 03/29/17 at 16:01; Status Cancel Potassium Chloride/Sodium Chloride 1,000 ml @ 75 mls/hr 1X ONCE IV Last administered on 03/30/17 15:27; Start 03/30/17 at 10:15; Stop 03/30/17 at 23 :34; Status DC Albumin Human 500 ml @ 125 mls/hr Q1H IV Last administered on 03/31/17 11:38 ; Start 03/30/17 at 10:15; Stop 03/30/17 at 14:14; Status DC Heparin Sodium (Porcine) (Heparin Sodium) 5,000 unit 1X ONCE IV Last administered on 03/30/17 14:30; Start 03/30/17 at 14:30; Stop 03/30/17 at 14 :39; Status DC Heparin Sodium (Porcine) (Heparin Sodium) 10,000 unit STK-MED ONCE .ROUTE ; Start 03/30/17 at 14:39; Stop 03/30/17 at 14:40; Status DC Heparin Sodium (Porcine) (Heparin Sodium) 2,000 unit 1X ONCE IV Last administered on 03/31/17 11:36; Start 03/31/17 at 09:30; Stop 03/31/17 at 09 :37; Status DC Potassium Acetate 10 meq/Sodium Chloride 1,005 ml @ 0 mls/hr Q0M ONCE IV Last administered on 03/31/17 11:38; Start 03/31/17 at 10:00; Stop 03/31/17 at 10 :01; Status DC Albumin Human 1,500 ml @ 0 mls/hr 1X ONCE IV ; Start 03/31/17 at 10:00; Stop 03/31/17 at 10:01; Status DC Active Scripts Active Hydrocodone-Apap 7.5-325 (Hydrocodone Bit/Acetaminophen) 1 Each Tablet 1 Tab PO PRN Q6HRS PRN Amlodipine Besylate 10 Mg Tablet 10 Mg PO DAILY Reported Mestinon (Pyridostigmine Mobile) 60 Mg Tablet 60 Mg PO QID Cymbalta (Duloxetine Hcl) 60 Mg Capsule.dr 2 Cap PO DAILY Gabapentin 300 Mg Capsule 300 Mg PO TID Xanax (Alprazolam) 0.5 Mg Tablet 1 Mg PO PRN TID PRN Vitamin D-3 (Cholecalciferol (Vitamin D3)) 2,000 Unit Tablet 1,000 Unit PO DAILY06 Atorvastatin Calcium 10 Mg Tablet 10 Mg PO DAILY Losartan Potassium 100 Mg Tablet 100 Mg PO DAILY Bupropion Xl (Bupropion Hcl) 300 Mg Tab.er.24h 300 Mg PO DAILY Vitals/I & O Vital Sign - Last 24 Hours 03/30/17 03/30/17 03/30/17 03/31/17 19:00 20:00 23:57 03:00 Temp 98.1 98.3 97.6 98.1 98.3 97.6 Pulse 74 76 65 Resp 16 16 18 B/P (MAP) 114/57 (76) 115/74 (88) 110/54 (72) Pulse Ox 94 94 94 O2 Delivery Room Air Room Air BiPAP/CPAP BiPAP/CPAP 03/31/17 03/31/17 03/31/17 03/31/17 07:00 08:18 09:46 09:47 Temp 98.2 98.2 Pulse 72 72 72 Resp 17 B/P (MAP) 101/53 (69) 101/53 101/53 Pulse Ox 100 O2 Delivery Room Air Room Air 03/31/17 11:00 Temp 97.5 97.5 Pulse 82 Resp 22 B/P (MAP) 123/58 (79) Pulse Ox 97 O2 Delivery BiPAP/CPAP Intake and Output 03/31/17 03/31/17 04/01/17 14:59 22:59 06:59 Intake Total 250 ml Balance 250 ml UNA AGUILAR III DO Mar 31, 2017 12:23
--- NOTE | 2017-03-31 12:46 | PDOC ---
Renal-Progress Notes Subjective Notes Notes FEELING BETTER History of Present Illness Hx of present illness STABLE Vitals Vitals Vital Signs Date Time Temp Pulse Resp B/P (MAP) Pulse Ox O2 Delivery O2 Flow Rate FiO2 03/31/17 11:00 97.5 82 22 123/58 (79) 97 BiPAP/CPAP 97.5 Weight Weight [ ] I.O. Intake and Output Intake and Output 04/01/17 07:00 Intake Total 250 ml Balance 250 ml Intake Oral 250 ml Labs Labs Laboratory Tests Test 03/31/17 03:08 03/31/17 07:10 White Blood Count 10.9 x10^3/uL (4.0-11.0) Red Blood Count 4.68 x10^6/uL (3.50-5.40) Hemoglobin 12.0 g/dL (12.0-15.5) Hematocrit 37.7 % (36.0-47.0) Mean Corpuscular Volume 81 fL (79-100) Mean Corpuscular Hemoglobin 26 pg (25-35) Mean Corpuscular Hemoglobin Concent 32 g/dL (31-37) Red Cell Distribution Width 19.8 % (11.5-14.5) Platelet Count 223 x10^3/uL (140-400) Neutrophils (%) (Auto) 58 % (31-73) Lymphocytes (%) (Auto) 30 % (24-48) Monocytes (%) (Auto) 10 % (0-9) Eosinophils (%) (Auto) 2 % (0-3) Basophils (%) (Auto) 1 % (0-3) Neutrophils # (Auto) 6.4 x10^3uL (1.8-7.7) Lymphocytes # (Auto) 3.3 x10^3/uL (1.0-4.8) Monocytes # (Auto) 1.0 x10^3/uL (0.0-1.1) Eosinophils # (Auto) 0.2 x10^3/uL (0.0-0.7) Basophils # (Auto) 0.1 x10^3/uL (0.0-0.2) Prothrombin Time 15.8 SEC (11.7-14.0) Prothromb Time International Ratio 1.3 (0.8-1.1) Activated Partial Thromboplast Time 38 SEC (24-38) Fibrinogen 145 mg/dL (200-440) Sodium Level 146 mmol/L (136-145) Potassium Level 3.5 mmol/L (3.5-5.1) Chloride Level 113 mmol/L (98-107) Carbon Dioxide Level 28 mmol/L (21-32) Anion Gap 5 (6-14) Blood Urea Nitrogen 14 mg/dL (7-20) Creatinine 0.6 mg/dL (0.6-1.0) Estimated GFR (Cockcroft-Gault) 99.7 BUN/Creatinine Ratio 23 (6-20) Glucose Level 80 mg/dL (70-99) Calcium Level 8.4 mg/dL (8.5-10.1) Magnesium Level 1.8 mg/dL (1.8-2.4) Total Bilirubin 0.2 mg/dL (0.2-1.0) Aspartate Amino Transf (AST/SGOT) 12 U/L (15-37) Alanine Aminotransferase (ALT/SGPT) 13 U/L (14-59) Alkaline Phosphatase 41 U/L (46-116) Total Protein 4.7 g/dL (6.4-8.2) Albumin 3.0 g/dL (3.4-5.0) Albumin/Globulin Ratio 1.8 (1.0-1.7) Glucose (Fingerstick) 73 mg/dL (70-99) Micro Micro Microbiology 03/27/17 Urine Culture - Final, Complete 03/27/17 Urine Culture Result 1 (LUCHO) - Final, Complete 03/27/17 Urine Culture Result 2 (LUCHO) - Final, Complete 03/27/17 Antimicrobic Susceptibility - Final, Complete Review of Systems Constitutional: yes: weakness, alert, oriented Ears/Nose/Throat: Yes: no symptom reported Eyes: Yes: no symptom reported Pulmonary: Yes no symptom reported Cardiovascular: Yes no symptom reported Gastrointestional: Yes: no symptom reported Genitourinary: Yes: no symptom reported Musculoskeletal: Yes: other (DIFFUSE UE AND LE WEAKNESS) Psychiatric/Neurological: Yes: no symptom reported Endocrine: Yes: no symptom reported Physical Exam General Appearance: no apparent distress Skin: warm Respiratory: bilateral CTA Heart: S1S2 Abdomen: soft, bowel sounds present Genitourinary: bladder flat Extremities: pulses present Neurology: alert, oriented Musculoskeletal: low back pain, Osteoarthritis Assessment Assessment IMP MYASTHENIA GRAVIS LOW K - RESOLVED PLAN TPE #4 TODAY EXCHANGE WITH ALB AND SALINE WILL NEED FFP AGAIN TODAY LAST TPE TOMORROW YOKO CORDOBA MD Mar 31, 2017 12:46
--- NOTE | 2017-03-31 12:54 | PDOC ---
PROGRESS NOTES Assessment Assessment MG exacerbation. Slurred speech as her symptoms of MG. Generalized weakness. Recent left superior and medial dislocation of femoral prothesis. Vit B12 deficiency. HTN HLD Falls ZENON Right shoulder pain, arthritis. Obesity. Emotional stress. RECOMMENDATIONS/PLAN: Plasma exchange, day 4 on 03/31/17. 1st exchange started on 03/28/17. Plan for 5 days treatment. Consulted Nephrology. Continue Mestinon, 60 mg qid. Prednisone 10 mg daily, started on 03/29/17. Treat medical diseases. Treat UTI. OT/PT. 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 She was hospitalized in 02/2017 and received rehab as well. She just went ot home a week ago after rehab, but she has been having worsening symptoms of generalized weakness to the point that she was difficult to lift her arms and walk. Her speech again become slurred. She felt easily got tired at home. Patient stated her symptoms of MG are improved since 03/30/17. Past Medical History Cardiovascular: CAD, Other Pulmonary: Asthma CENTRAL NERVOUS SYSTEM: Peripheral neuropathy Endocrine: Diabetes Past Surgical History Appendectomy, Arthroscopy, Total hip replacement, Hysterectomy, Other Family History Hypertension Social History Smoke: No ALCOHOL: none Drugs: None ALLERGY: Reviewed. MEDICATIONS: Refer to MAR REVIEW OF SYSTEMS: Constitutional: No malnutrition, weight loss, cachexia. Head: No traumatic brain or head injury. Skin: No edema, or rash. Ear: No infection. Eyes: No vision loss or color blindness. Nose: No bleeding or purulent discharges. Hearing: Hearing decrease. Neck: No injury. Breast: No history of cancer, masses,or discharges. Cardiac: HTN, HLD. Pulmonary: ZENON GI: No GI ulcer, GI bleeding. Urinary/genital: UTI. Endocrinologic: Obesity. Skeletomuscular: Falls.. Neurological: see HP. Psychiatric: Denies drug use/abuse. Otherwise, not [id number] review of systems. PHYSICAL EXAMINATION: General appearance is in subacute distress. HEENT: Normocephalic and nontraumatic. Eyes, nose, ears, and throat are unremarkable. Neck is supple. No lymphadenopathy. No bruits are heard over the carotid artery. No crepitus. Cardiovascular: S1, S2, regular rate and rhythm. Pulmonary: Clear to auscultation bilaterally. Abdomen: Bowel sounds are positive. Abdomen is soft, nontender, and nondistended. Extremities: No rash, lesions, or edema. No restriction of range of motion NEUROLOGICAL EXAMINATION: Alert Oriented to time, place and person. PERRL. EOMI. CN: no focal findings. Muscle tone: within normal. Muscle strength: 4 right hand due to OA, 4+ the rest. DTR: 1-2 Plantar reflex: Flexor response bilaterally Gait: Able to walk with a walker and assistance. Sensory exam: no abnormal findings. No cerebellar signs elicited. F-T-N test fine. Objective Objective Vital Signs Date Time Temp Pulse Resp B/P (MAP) Pulse Ox O2 Delivery O2 Flow Rate FiO2 03/31/17 11:00 97.5 82 22 123/58 (79) 97 BiPAP/CPAP 97.5 Intake and Output 04/01/17 06:59 Intake Total 250 ml Balance 250 ml Intake Oral 250 ml Vitals Signs Vitals VS - Last 72 Hours, by Label Date Time Temp Pulse Resp B/P (MAP) Pulse Ox O2 Delivery O2 Flow Rate FiO2 03/31/17 11:00 97.5 82 22 123/58 (79) 97 BiPAP/CPAP 97.5 03/31/17 09:47 72 101/53 03/31/17 09:46 72 101/53 03/31/17 08:18 Room Air 03/31/17 07:00 98.2 72 17 101/53 (69) 100 Room Air 98.2 03/31/17 03:00 97.6 65 18 110/54 (72) 94 BiPAP/CPAP 97.6 03/30/17 23:57 98.3 76 16 115/74 (88) 94 BiPAP/CPAP 98.3 03/30/17 20:00 Room Air 03/30/17 19:00 98.1 74 16 114/57 (76) 94 Room Air 98.1 03/30/17 11:00 97.7 72 17 108/57 (74) 96 Room Air 97.7 03/30/17 09:00 64 111/52 03/30/17 08:40 64 111/52 03/30/17 07:30 Room Air 03/30/17 07:00 97.4 80 17 137/47 (77) 96 Room Air 97.4 Laboratory Laboratory Laboratory Tests Test 03/31/17 03:08 03/31/17 07:10 White Blood Count 10.9 x10^3/uL (4.0-11.0) Red Blood Count 4.68 x10^6/uL (3.50-5.40) Hemoglobin 12.0 g/dL (12.0-15.5) Hematocrit 37.7 % (36.0-47.0) Mean Corpuscular Volume 81 fL (79-100) Mean Corpuscular Hemoglobin 26 pg (25-35) Mean Corpuscular Hemoglobin Concent 32 g/dL (31-37) Red Cell Distribution Width 19.8 % (11.5-14.5) Platelet Count 223 x10^3/uL (140-400) Neutrophils (%) (Auto) 58 % (31-73) Lymphocytes (%) (Auto) 30 % (24-48) Monocytes (%) (Auto) 10 % (0-9) Eosinophils (%) (Auto) 2 % (0-3) Basophils (%) (Auto) 1 % (0-3) Neutrophils # (Auto) 6.4 x10^3uL (1.8-7.7) Lymphocytes # (Auto) 3.3 x10^3/uL (1.0-4.8) Monocytes # (Auto) 1.0 x10^3/uL (0.0-1.1) Eosinophils # (Auto) 0.2 x10^3/uL (0.0-0.7) Basophils # (Auto) 0.1 x10^3/uL (0.0-0.2) Prothrombin Time 15.8 SEC (11.7-14.0) Prothromb Time International Ratio 1.3 (0.8-1.1) Activated Partial Thromboplast Time 38 SEC (24-38) Fibrinogen 145 mg/dL (200-440) Sodium Level 146 mmol/L (136-145) Potassium Level 3.5 mmol/L (3.5-5.1) Chloride Level 113 mmol/L (98-107) Carbon Dioxide Level 28 mmol/L (21-32) Anion Gap 5 (6-14) Blood Urea Nitrogen 14 mg/dL (7-20) Creatinine 0.6 mg/dL (0.6-1.0) Estimated GFR (Cockcroft-Gault) 99.7 BUN/Creatinine Ratio 23 (6-20) Glucose Level 80 mg/dL (70-99) Calcium Level 8.4 mg/dL (8.5-10.1) Magnesium Level 1.8 mg/dL (1.8-2.4) Total Bilirubin 0.2 mg/dL (0.2-1.0) Aspartate Amino Transf (AST/SGOT) 12 U/L (15-37) Alanine Aminotransferase (ALT/SGPT) 13 U/L (14-59) Alkaline Phosphatase 41 U/L (46-116) Total Protein 4.7 g/dL (6.4-8.2) Albumin 3.0 g/dL (3.4-5.0) Albumin/Globulin Ratio 1.8 (1.0-1.7) Glucose (Fingerstick) 73 mg/dL (70-99) Microbiology 03/27/17 Urine Culture - Final, Complete 03/27/17 Urine Culture Result 1 (LUCHO) - Final, Complete 03/27/17 Urine Culture Result 2 (LUCHO) - Final, Complete 03/27/17 Antimicrobic Susceptibility - Final, Complete Medication Medications Current Medications Albumin Human 1,500 ml @ 0 mls/hr 1X ONCE IV ; Start 03/31/17 at 10:00; Stop 03/31/17 at 10:01; Status DC Heparin Sodium (Porcine) (Heparin Sodium) 2,000 unit 1X ONCE IV Last administered on 03/31/17 11:36; Start 03/31/17 at 09:30; Stop 03/31/17 at 09 :37; Status DC Heparin Sodium (Porcine) (Heparin Sodium) 5,000 unit 1X ONCE IV Last administered on 03/30/17 14:30; Start 03/30/17 at 14:30; Stop 03/30/17 at 14 :39; Status DC Heparin Sodium (Porcine) (Heparin Sodium) 10,000 unit STK-MED ONCE .ROUTE ; Start 03/30/17 at 14:39; Stop 03/30/17 at 14:40; Status DC Potassium Acetate 10 meq/Sodium Chloride 1,005 ml @ 0 mls/hr Q0M ONCE IV Last administered on 03/31/17 11:38; Start 03/31/17 at 10:00; Stop 03/31/17 at 10 :01; Status DC Comment Review of Relevant I have reviewed the following items antonio (where applicable) has been applied. ELEANOR KENNEY MD Mar 31, 2017 12:54
[2017-03-31] MEDS: ATORVASTATIN CALCIUM 10 MG TABLET. PO SCH (20:34)
[2017-03-31] MEDS: ENOXAPARIN 40 MG/0.4 ML SYRINGE. SQ SCH (20:34)
[2017-04-01] MEDS: ALPRAZolam 1 MG TABLET PO PRN ×2 (02:18→22:27)
[2017-04-01 03:19] VITALS: BP 122/57
[2017-04-01 05:10] LABS: BASO # 0.1 x10^3/uL (0.0-0.2); BASO % 1 % (0-3); EOS % 3 % (0-3); HEMATOCRIT 36.9 % (36.0-47.0); HEMOGLOBIN 11.6 g/dL (12.0-15.5); LYMPH # 3.1 x10^3/uL (1.0-4.8); LYMPH % 30 % (24-48); MEAN CORPUSCULAR HEMOGLOBIN 25 pg (25-35); MEAN CORPUSCULAR HGB CONC 31 g/dL (31-37); MEAN CORPUSCULAR VOLUME 81 fL (79-100); MONO % 10 % (0-9); NEUT % 57 % (31-73); PLATELET COUNT 223 x10^3/uL (140-400); RED BLOOD COUNT 4.57 x10^6/uL (3.50-5.40); WHITE BLOOD COUNT 10.4 x10^3/uL (4.0-11.0)
[2017-04-01 05:12] LABS: INR 1.2 (0.8-1.1); PROTHROMBIN TIME PATIENT 14.3 SEC (11.7-14.0)
[2017-04-01 05:48] LABS: ALBUMIN 3.1 g/dL (3.4-5.0); ALBUMIN/GLOBULIN RATIO 1.7 (1.0-1.7); CREATININE 0.5 mg/dL (0.6-1.0); GFR 123.1; POTASSIUM 3.3 mmol/L (3.5-5.1); TOTAL BILIRUBIN 0.3 mg/dL (0.2-1.0); TOTAL PROTEIN 4.9 g/dL (6.4-8.2)
[2017-04-01 07:00] VITALS: BP 154/70
[2017-04-01] MEDS ORDERED: ALBUMIN HUMAN 5% 1,500 ML IV ONE (08:30)
[2017-04-01] MEDS: GABAPENTIN 300 MG CAPSULE. PO SCH ×3 (10:17→20:32)
[2017-04-01] MEDS: predniSONE 10 MG TABLET PO SCH (10:17)
[2017-04-01] MEDS: PYRIDOSTIGMINE BROMIDE 60 MG TABLET PO SCH ×4 (10:17→20:32)
[2017-04-01] MEDS: buPROPion XL 150 MG TAB.ER.24H. PO SCH (10:18)
[2017-04-01] MEDS: LACTOBACILLUS RHAMNOSUS GG 1 CAPSULE. PO SCH ×2 (10:18→20:32)
[2017-04-01] MEDS: amLODIPine BESYLATE 10 MG TABLET PO SCH (10:18)
[2017-04-01] MEDS: DULoxetine HCL 30 MG CAPSULE.DR PO SCH (10:19)
[2017-04-01] MEDS: LOSARTAN POTASSIUM 50 MG TABLET. PO SCH (10:19)
[2017-04-01] MEDS: CHOLECALCIFEROL (VITAMIN D3) 1,000 UNIT TABLET PO SCH (10:20)
[2017-04-01] MEDS: CEFPODOXIME PROXETIL 100 MG TABLET. PO SCH ×2 (10:20→20:32)
[2017-04-01 11:00] VITALS: BP 111/56
--- NOTE | 2017-04-01 13:26 | PDOC ---
PROGRESS NOTES Chief Complaint Chief Complaint Extremity weakness with myasthenia gravis 1. MG 2. Hx hip dislocation (artificial joint) 3. CAD 4. HTN 5. HLD 6. Hypokalemia 7. Hx pericarditis 8. ZENON 9. B12 deficiency 10. Peripheral neuropathy 11. Morbid obesity 12. R subconjunctival hemorrhage 14. external stressors: in rehab, daughter attempted suicide. History of Present Illness History of Present Illness Pt is a pleasant 66 year old female who presents with myasthenia gravis. Pt was seen at bedside resting comfortably but is weak. Pt is currently receiving 5th therapeutic plasma exchange. Pt is not on Bipap anymore. Examination of pt's eyes showed marked weakness, but slight improvement from yesterday. Pt followed by neurology and nephrology. Pt. has a tunnel cath placed by IR. Probably discharge to SNU next week. Will continue to monitor for now. Vitals Vitals Vital Signs Date Time Temp Pulse Resp B/P (MAP) Pulse Ox O2 Delivery O2 Flow Rate FiO2 04/01/17 11:00 97.9 73 18 111/56 (74) 97 Room Air 97.9 Physical Exam General: Alert, Oriented X3, Cooperative, No acute distress Heart: Regular rate, Normal S1, Normal S2 Lungs: Clear Abdomen: Normal bowel sounds, No tenderness Extremities: No clubbing, No edema Skin: No rashes, No significant lesion Labs LABS Laboratory Tests Test 04/01/17 03:45 White Blood Count 10.4 x10^3/uL (4.0-11.0) Red Blood Count 4.57 x10^6/uL (3.50-5.40) Hemoglobin 11.6 g/dL (12.0-15.5) Hematocrit 36.9 % (36.0-47.0) Mean Corpuscular Volume 81 fL (79-100) Mean Corpuscular Hemoglobin 25 pg (25-35) Mean Corpuscular Hemoglobin Concent 31 g/dL (31-37) Red Cell Distribution Width 20.0 % (11.5-14.5) Platelet Count 223 x10^3/uL (140-400) Neutrophils (%) (Auto) 57 % (31-73) Lymphocytes (%) (Auto) 30 % (24-48) Monocytes (%) (Auto) 10 % (0-9) Eosinophils (%) (Auto) 3 % (0-3) Basophils (%) (Auto) 1 % (0-3) Neutrophils # (Auto) 6.0 x10^3uL (1.8-7.7) Lymphocytes # (Auto) 3.1 x10^3/uL (1.0-4.8) Monocytes # (Auto) 1.0 x10^3/uL (0.0-1.1) Eosinophils # (Auto) 0.3 x10^3/uL (0.0-0.7) Basophils # (Auto) 0.1 x10^3/uL (0.0-0.2) Prothrombin Time 14.3 SEC (11.7-14.0) Prothromb Time International Ratio 1.2 (0.8-1.1) Activated Partial Thromboplast Time 37 SEC (24-38) Fibrinogen 181 mg/dL (200-440) Sodium Level 143 mmol/L (136-145) Potassium Level 3.3 mmol/L (3.5-5.1) Chloride Level 108 mmol/L (98-107) Carbon Dioxide Level 29 mmol/L (21-32) Anion Gap 6 (6-14) Blood Urea Nitrogen 11 mg/dL (7-20) Creatinine 0.5 mg/dL (0.6-1.0) Estimated GFR (Cockcroft-Gault) 123.1 BUN/Creatinine Ratio 22 (6-20) Glucose Level 85 mg/dL (70-99) Calcium Level 9.0 mg/dL (8.5-10.1) Magnesium Level 1.7 mg/dL (1.8-2.4) Total Bilirubin 0.3 mg/dL (0.2-1.0) Aspartate Amino Transf (AST/SGOT) 14 U/L (15-37) Alanine Aminotransferase (ALT/SGPT) 12 U/L (14-59) Alkaline Phosphatase 42 U/L (46-116) Total Protein 4.9 g/dL (6.4-8.2) Albumin 3.1 g/dL (3.4-5.0) Albumin/Globulin Ratio 1.7 (1.0-1.7) Review of Systems Review of Systems fatigue and weakness Assessment and Plan Assessmemt and Plan Problems Medical Problems: (1) Hyperglycemia Status: Acute (2) Urinary tract infection Status: Acute Assessment: 1. MG - Extremity weakness with myasthenia gravis 2. Hx hip dislocation (artificial joint) 3. CAD 4. HTN 5. HLD 6. Hypokalemia 7. Hx pericarditis 8. ZENON 9. B12 deficiency 10. Peripheral neuropathy 11. Morbid obesity 12. R subconjunctival hemorrhage 14. external stressors: in rehab, daughter attempted suicide. Plan: SNU evaluation Continue physical therapy Recheck labs Wound care Continue home meds Possible [facility] discharge next week Tunnel cath awaits removal by IR Problems: Comment Review of Relevant I have reviewed the following items antonio (where applicable) has been applied. Labs Laboratory Tests Test 03/31/17 03:08 03/31/17 07:10 04/01/17 03:45 White Blood Count 10.9 x10^3/uL (4.0-11.0) 10.4 x10^3/uL (4.0-11.0) Red Blood Count 4.68 x10^6/uL (3.50-5.40) 4.57 x10^6/uL (3.50-5.40) Hemoglobin 12.0 g/dL (12.0-15.5) 11.6 g/dL (12.0-15.5) Hematocrit 37.7 % (36.0-47.0) 36.9 % (36.0-47.0) Mean Corpuscular Volume 81 fL (79-100) 81 fL (79-100) Mean Corpuscular Hemoglobin 26 pg (25-35) 25 pg (25-35) Mean Corpuscular Hemoglobin Concent 32 g/dL (31-37) 31 g/dL (31-37) Red Cell Distribution Width 19.8 % (11.5-14.5) 20.0 % (11.5-14.5) Platelet Count 223 x10^3/uL (140-400) 223 x10^3/uL (140-400) Neutrophils (%) (Auto) 58 % (31-73) 57 % (31-73) Lymphocytes (%) (Auto) 30 % (24-48) 30 % (24-48) Monocytes (%) (Auto) 10 % (0-9) 10 % (0-9) Eosinophils (%) (Auto) 2 % (0-3) 3 % (0-3) Basophils (%) (Auto) 1 % (0-3) 1 % (0-3) Neutrophils # (Auto) 6.4 x10^3uL (1.8-7.7) 6.0 x10^3uL (1.8-7.7) Lymphocytes # (Auto) 3.3 x10^3/uL (1.0-4.8) 3.1 x10^3/uL (1.0-4.8) Monocytes # (Auto) 1.0 x10^3/uL (0.0-1.1) 1.0 x10^3/uL (0.0-1.1) Eosinophils # (Auto) 0.2 x10^3/uL (0.0-0.7) 0.3 x10^3/uL (0.0-0.7) Basophils # (Auto) 0.1 x10^3/uL (0.0-0.2) 0.1 x10^3/uL (0.0-0.2) Prothrombin Time 15.8 SEC (11.7-14.0) 14.3 SEC (11.7-14.0) Prothromb Time International Ratio 1.3 (0.8-1.1) 1.2 (0.8-1.1) Activated Partial Thromboplast Time 38 SEC (24-38) 37 SEC (24-38) Fibrinogen 145 mg/dL (200-440) 181 mg/dL (200-440) Sodium Level 146 mmol/L (136-145) 143 mmol/L (136-145) Potassium Level 3.5 mmol/L (3.5-5.1) 3.3 mmol/L (3.5-5.1) Chloride Level 113 mmol/L (98-107) 108 mmol/L (98-107) Carbon Dioxide Level 28 mmol/L (21-32) 29 mmol/L (21-32) Anion Gap 5 (6-14) 6 (6-14) Blood Urea Nitrogen 14 mg/dL (7-20) 11 mg/dL (7-20) Creatinine 0.6 mg/dL (0.6-1.0) 0.5 mg/dL (0.6-1.0) Estimated GFR (Cockcroft-Gault) 99.7 123.1 BUN/Creatinine Ratio 23 (6-20) 22 (6-20) Glucose Level 80 mg/dL (70-99) 85 mg/dL (70-99) Calcium Level 8.4 mg/dL (8.5-10.1) 9.0 mg/dL (8.5-10.1) Magnesium Level 1.8 mg/dL (1.8-2.4) 1.7 mg/dL (1.8-2.4) Total Bilirubin 0.2 mg/dL (0.2-1.0) 0.3 mg/dL (0.2-1.0) Aspartate Amino Transf (AST/SGOT) 12 U/L (15-37) 14 U/L (15-37) Alanine Aminotransferase (ALT/SGPT) 13 U/L (14-59) 12 U/L (14-59) Alkaline Phosphatase 41 U/L (46-116) 42 U/L (46-116) Total Protein 4.7 g/dL (6.4-8.2) 4.9 g/dL (6.4-8.2) Albumin 3.0 g/dL (3.4-5.0) 3.1 g/dL (3.4-5.0) Albumin/Globulin Ratio 1.8 (1.0-1.7) 1.7 (1.0-1.7) Glucose (Fingerstick) 73 mg/dL (70-99) Laboratory Tests Test 04/01/17 03:45 White Blood Count 10.4 x10^3/uL (4.0-11.0) Red Blood Count 4.57 x10^6/uL (3.50-5.40) Hemoglobin 11.6 g/dL (12.0-15.5) Hematocrit 36.9 % (36.0-47.0) Mean Corpuscular Volume 81 fL (79-100) Mean Corpuscular Hemoglobin 25 pg (25-35) Mean Corpuscular Hemoglobin Concent 31 g/dL (31-37) Red Cell Distribution Width 20.0 % (11.5-14.5) Platelet Count 223 x10^3/uL (140-400) Neutrophils (%) (Auto) 57 % (31-73) Lymphocytes (%) (Auto) 30 % (24-48) Monocytes (%) (Auto) 10 % (0-9) Eosinophils (%) (Auto) 3 % (0-3) Basophils (%) (Auto) 1 % (0-3) Neutrophils # (Auto) 6.0 x10^3uL (1.8-7.7) Lymphocytes # (Auto) 3.1 x10^3/uL (1.0-4.8) Monocytes # (Auto) 1.0 x10^3/uL (0.0-1.1) Eosinophils # (Auto) 0.3 x10^3/uL (0.0-0.7) Basophils # (Auto) 0.1 x10^3/uL (0.0-0.2) Prothrombin Time 14.3 SEC (11.7-14.0) Prothromb Time International Ratio 1.2 (0.8-1.1) Activated Partial Thromboplast Time 37 SEC (24-38) Fibrinogen 181 mg/dL (200-440) Sodium Level 143 mmol/L (136-145) Potassium Level 3.3 mmol/L (3.5-5.1) Chloride Level 108 mmol/L (98-107) Carbon Dioxide Level 29 mmol/L (21-32) Anion Gap 6 (6-14) Blood Urea Nitrogen 11 mg/dL (7-20) Creatinine 0.5 mg/dL (0.6-1.0) Estimated GFR (Cockcroft-Gault) 123.1 BUN/Creatinine Ratio 22 (6-20) Glucose Level 85 mg/dL (70-99) Calcium Level 9.0 mg/dL (8.5-10.1) Magnesium Level 1.7 mg/dL (1.8-2.4) Total Bilirubin 0.3 mg/dL (0.2-1.0) Aspartate Amino Transf (AST/SGOT) 14 U/L (15-37) Alanine Aminotransferase (ALT/SGPT) 12 U/L (14-59) Alkaline Phosphatase 42 U/L (46-116) Total Protein 4.9 g/dL (6.4-8.2) Albumin 3.1 g/dL (3.4-5.0) Albumin/Globulin Ratio 1.7 (1.0-1.7) Microbiology 03/27/17 Urine Culture - Final, Complete 03/27/17 Urine Culture Result 1 (LUCHO) - Final, Complete 03/27/17 Urine Culture Result 2 (LUCHO) - Final, Complete 03/27/17 Antimicrobic Susceptibility - Final, Complete Medications Current Medications Alprazolam (Xanax) 1 mg PRN Q8HRS PRN PO ANXIETY Last administered on 02:18; Start 03/27/17 at 18:45 Amlodipine Besylate (Norvasc) 10 mg DAILY PO Last administered on 04/01/17 10 :18; Start 03/28/17 at 09:00 Atorvastatin Calcium (Lipitor) 10 mg QHS PO Last administered on 03/31/17 20: 34; Start 03/28/17 at 21:00 Acetaminophen/ Hydrocodone Bitart (Lortab 7.5/325) 1 tab PRN Q6HRS PRN PO PAIN Last administered on 03/30/17 22:08; Start 03/27/17 at 18:45 Pyridostigmine [place] (Mestinon) 60 mg QID PO Last administered on 04/01/17 10:17; Start 03/27/17 at 21:00 Bupropion HCl (Wellbutrin Xl) 300 mg DAILY PO Last administered on 04/01/17 10:18; Start 03/28/17 at 09:00 Vitamin D (Vitamin D3) 1,000 unit DAILY PO Last administered on 04/01/17 10: 20; Start 03/28/17 at 09:00 Duloxetine HCl (Cymbalta) 120 mg DAILY PO Last administered on 04/01/17 10:19 ; Start 03/28/17 at 09:00 Gabapentin (Neurontin) 300 mg TID PO Last administered on 04/01/17 10:17; Start 03/27/17 at 21:00 Losartan Potassium (Cozaar) 100 mg DAILY PO Last administered on 04/01/17 10: 19; Start 03/28/17 at 09:00 Acetaminophen (Tylenol) 650 mg PRN Q6HRS PRN PO FEVER; Start 03/27/17 at 18:45 Ondansetron HCl (Zofran) 4 mg PRN Q6HRS PRN IV NAUSEA/VOMITING Last administered on 03/28/17 19:58; Start 03/27/17 at 18:45 Morphine Sulfate 2 mg PRN Q2HR PRN IV PAIN; Start 03/27/17 at 18:45 Tramadol HCl (Ultram) 50 mg PRN Q6HRS PRN PO PAIN Last administered on 19:59; Start 03/27/17 at 18:45 Hydralazine HCl (Apresoline Inj) 10 mg PRN Q4HRS PRN IVP ELEVATED BP, SEE COMMENTS; Start 03/27/17 at 18:45 Docusate Sodium (Colace) 100 mg PRN DAILY PRN PO CONSTIPATION; Start 03/27/17 at 18:45 Enoxaparin Sodium (Lovenox 40mg Syringe) 40 mg Q24H SQ Last administered on 20:34; Start 03/27/17 at 21:00 Ceftriaxone Sodium 50 ml @ 100 mls/hr 1X ONCE IV Last administered on 19:32; Start 03/27/17 at 19:30; Stop 03/27/17 at 19:59; Status DC Potassium Chloride (Klor-Con) 40 meq 1X ONCE PO Last administered on 13:31; Start 03/28/17 at 12:00; Stop 03/28/17 at 12:01; Status DC Albumin Human 500 ml @ 0 mls/hr 1X ONCE IV Last administered on 03/28/17 16: 54; Start 03/28/17 at 12:45; Stop 03/28/17 at 12:54; Status DC Albumin Human 500 ml @ 125 mls/hr 1X ONCE IV Last administered on 03/28/17 16:54; Start 03/28/17 at 12:45; Stop 03/28/17 at 16:44; Status DC Albumin Human 500 ml @ 0 mls/hr 1X ONCE IV ; Start 03/28/17 at 12:45; Stop at 12:54; Status DC Albumin Human 500 ml @ 125 mls/hr 1X ONCE IV Last administered on 03/28/17 16:55; Start 03/28/17 at 12:45; Stop 03/28/17 at 16:44; Status DC Albumin Human 500 ml @ 0 mls/hr 1X ONCE IV Last administered on 03/28/17 16: 55; Start 03/28/17 at 12:45; Stop 03/28/17 at 12:54; Status DC Heparin Sodium (Porcine) (Heparin Sodium) 10,000 unit STK-MED ONCE .ROUTE ; Start 03/28/17 at 15:03; Stop 03/28/17 at 15:04; Status DC Lidocaine/ Epinephrine (Xylocaine 1%-Epi 1:100,000) 20 ml STK-MED ONCE .ROUTE ; Start 03/28/17 at 15:03; Stop 03/28/17 at 15:04; Status DC Heparin Sodium/ Sodium Chloride 500 ml @ As Directed STK-MED ONCE .ROUTE ; Start 03/28/17 at 15:03; Stop 03/28/17 at 15:04; Status DC Fentanyl Citrate (Fentanyl 2ml Vial) 100 mcg STK-MED ONCE .ROUTE ; Start at 15:29; Stop 03/28/17 at 15:30; Status DC Midazolam HCl (Versed) 2 mg STK-MED ONCE .ROUTE ; Start 03/28/17 at 15:29; Stop 03/28/17 at 15:30; Status DC Heparin Sodium/ Sodium Chloride 1,000 unit 1X ONCE IART Last administered on 03/28/17 16:14; Start 03/28/17 at 15:45; Stop 03/28/17 at 15:46; Status DC Midazolam HCl (Versed) 2 mg 1X ONCE IV Last administered on 03/28/17 16:15; Start 03/28/17 at 15:45; Stop 03/28/17 at 15:46; Status DC Fentanyl Citrate (Fentanyl 2ml Vial) 100 mcg 1X ONCE IV Last administered on 03/28/17 16:14; Start 03/28/17 at 15:45; Stop 03/28/17 at 15:46; Status DC Heparin Sodium (Porcine) (Heparin Sodium) 4,000 unit 1X ONCE IV Last administered on 03/28/17 16:16; Start 03/28/17 at 15:45; Stop 03/28/17 at 15 :46; Status DC Lidocaine/ Epinephrine (Xylocaine 1%-Epi 1:100,000) 20 ml 1X ONCE INJ Last administered on 03/28/17 16:15; Start 03/28/17 at 15:45; Stop 03/28/17 at 15 :46; Status DC Ceftriaxone Sodium 1 gm/ Dextrose 50 ml @ 100 mls/hr Q24H IV Last administered on 03/28/17 19:58; Start 03/28/17 at 19:00; Stop 03/29/17 at 04 :16; Status DC Prednisone (Prednisone) 10 mg DAILY PO Last administered on 04/01/17 10:17; Start 03/28/17 at 18:00 Ceftriaxone Sodium 1 gm/ Sodium Chloride 50 ml @ 100 mls/hr Q24H IV ; Start at 04:16; Stop 03/29/17 at 04:17; Status DC Ceftriaxone Sodium 1 gm/ Sodium Chloride 50 ml @ 100 mls/hr Q24H IV Last administered on 03/31/17 18:08; Start 03/29/17 at 19:00; Stop 03/31/17 at 23 :00; Status DC Heparin Sodium (Porcine) (Heparin Sodium) 2,000 unit 1X ONCE INT CAT Last administered on 03/29/17 16:30; Start 03/29/17 at 15:15; Stop 03/29/17 at 15 :24; Status DC Sodium Chloride 1,000 ml @ 1,000 mls/hr Q1H PRN IV hypotension Last administered on 03/29/17 16:30; Start 03/29/17 at 15:12; Stop 03/29/17 at 21 :11; Status DC Diphenhydramine HCl (Benadryl) 25 mg 1X PRN PRN IV ITCHING; Start 03/29/17 at 15:15; Stop 03/30/17 at 15:14; Status DC Diphenhydramine HCl (Benadryl) 25 mg 1X PRN PRN IV ITCHING; Start 03/29/17 at 15:15; Stop 03/30/17 at 15:14; Status DC Lactobacillus Rhamnosus (Culturelle) 1 cap BID PO Last administered on 10:18; Start 03/29/17 at 21:00 Albumin Human 2,000 ml @ 0 mls/hr 1X ONCE IV Last administered on 03/29/17 16:32; Start 03/29/17 at 16:00; Stop 03/29/17 at 16:01; Status DC Albumin Human 2,000 ml @ 0 mls/hr 1X ONCE IV ; Start 03/29/17 at 16:00; Stop 03/29/17 at 16:01; Status Cancel Potassium Chloride/Sodium Chloride 1,000 ml @ 75 mls/hr 1X ONCE IV Last administered on 03/30/17 15:27; Start 03/30/17 at 10:15; Stop 03/30/17 at 23 :34; Status DC Albumin Human 500 ml @ 125 mls/hr Q1H IV Last administered on 03/31/17 11:38 ; Start 03/30/17 at 10:15; Stop 03/30/17 at 14:14; Status DC Heparin Sodium (Porcine) (Heparin Sodium) 5,000 unit 1X ONCE IV Last administered on 03/30/17 14:30; Start 03/30/17 at 14:30; Stop 03/30/17 at 14 :39; Status DC Heparin Sodium (Porcine) (Heparin Sodium) 10,000 unit STK-MED ONCE .ROUTE ; Start 03/30/17 at 14:39; Stop 03/30/17 at 14:40; Status DC Heparin Sodium (Porcine) (Heparin Sodium) 2,000 unit 1X ONCE IV Last administered on 03/31/17 11:36; Start 03/31/17 at 09:30; Stop 03/31/17 at 09 :37; Status DC Potassium Acetate 10 meq/Sodium Chloride 1,005 ml @ 0 mls/hr Q0M ONCE IV Last administered on 03/31/17 11:38; Start 03/31/17 at 10:00; Stop 03/31/17 at 10 :01; Status DC Albumin Human 1,500 ml @ 0 mls/hr 1X ONCE IV ; Start 03/31/17 at 10:00; Stop 03/31/17 at 10:01; Status DC Cefpodoxime Proxetil (Vantin) 200 mg BID PO Last administered on 04/01/17 10: 20; Start 04/01/17 at 09:00 Heparin Sodium (Porcine) (Heparin Sodium) 2,000 unit 1X ONCE IV Last administered on 04/01/17 08:21; Start 04/01/17 at 07:45; Stop 04/01/17 at 07 :47; Status DC Albumin Human 1,500 ml @ 0 mls/hr 1X ONCE IV Last administered on 04/01/17 08:23; Start 04/01/17 at 08:30; Stop 04/01/17 at 08:31; Status DC Potassium Chloride/Sodium Chloride 1,000 ml @ 0 mls/hr 1X ONCE IV Last administered on 04/01/17t 08:22; Start 04/01/17 at 08:30; Stop 04/01/17 at 08 :31; Status DC Active Scripts Active Hydrocodone-Apap 7.5-325 (Hydrocodone Bit/Acetaminophen) 1 Each Tablet 1 Tab PO PRN Q6HRS PRN Amlodipine Besylate 10 Mg Tablet 10 Mg PO DAILY Reported Mestinon (Pyridostigmine [place]) 60 Mg Tablet 60 Mg PO QID Cymbalta (Duloxetine Hcl) 60 Mg Capsule.dr 2 Cap PO DAILY Gabapentin 300 Mg Capsule 300 Mg PO TID Xanax (Alprazolam) 0.5 Mg Tablet 1 Mg PO PRN TID PRN Vitamin D-3 (Cholecalciferol (Vitamin D3)) 2,000 Unit Tablet 1,000 Unit PO DAILY06 Atorvastatin Calcium 10 Mg Tablet 10 Mg PO DAILY Losartan Potassium 100 Mg Tablet 100 Mg PO DAILY Bupropion Xl (Bupropion Hcl) 300 Mg Tab.er.24h 300 Mg PO DAILY Vitals/I & O Vital Sign - Last 24 Hours 03/31/17 03/31/17 03/31/17 03/31/17 15:00 19:05 20:00 23:43 Temp 98.0 98.3 98.2 98.0 98.3 98.2 Pulse 76 82 73 Resp 16 16 16 B/P (MAP) 120/63 (82) 121/40 (67) 138/87 (104) Pulse Ox 99 94 97 O2 Delivery Room Air Room Air Room Air Room Air 04/01/17 04/01/17 04/01/17 04/01/17 03:19 07:00 07:38 10:18 Temp 98.2 97.8 98.2 97.8 Pulse 68 73 73 Resp 16 18 B/P (MAP) 122/57 (78) 154/70 (98) 154/70 Pulse Ox 98 98 O2 Delivery BiPAP/CPAP Room Air Room Air 04/01/17 04/01/17 10:19 11:00 Temp 97.9 97.9 Pulse 73 73 Resp 18 B/P (MAP) 154/70 111/56 (74) Pulse Ox 97 O2 Delivery Room Air UNA AGUILAR III DO Apr 01, 2017 13:26
--- NOTE | 2017-04-01 14:04 | PDOC ---
SUBJECTIVE ROS Sked to see for TPE TPE done earlier today and earline well OBJECTIVE Vital Signs Vital Signs Date Time Temp Pulse Resp B/P (MAP) Pulse Ox O2 Delivery O2 Flow Rate FiO2 04/01/17 11:00 97.9 73 18 111/56 (74) 97 Room Air 97.9 PHYSICAL EXAM Physical Exam General Appearance: Awake: Alert Oriented x 2 Neck: No JVD or JVP Chest: CTA [place] Heart: S1 S2 Abdomen - Soft NTND Extremities - No Edema DIAGNOSIS/ASSESSMENT Assessment & Plan MG - TPE done low K - replace per PO protocol; 1 gm Mag today Will sign off - pl call with Qs Problems: COMMENT/RELEVANT DATA Meds Current Medications Medications (Trade) Dose Ordered Sig/Priscila Start Time Stop Time Status Last Admin Dose Admin Acetaminophen (Tylenol) 650 mg PRN Q6HRS PRN 03/27/17 18:45 Acetaminophen/ Hydrocodone Bitart (Lortab 7.5/325) 1 tab PRN Q6HRS PRN 03/27/17 18:45 03/30/17 22:08 1 TAB Albumin Human 1,500 ml @ 0 mls/hr 1X ONCE 04/01/17 08:30 04/01/17 08:31 DC 04/01/17 08:23 3,000 MLS/HR Alprazolam (Xanax) 1 mg PRN Q8HRS PRN 03/27/17 18:45 04/01/17 02:18 1 MG Amlodipine Besylate (Norvasc) 10 mg DAILY 03/28/17 09:00 04/01/17 10:18 10 MG Atorvastatin Calcium (Lipitor) 10 mg QHS 03/28/17 21:00 03/31/17 20:34 10 MG Bupropion HCl (Wellbutrin Xl) 300 mg DAILY 03/28/17 09:00 04/01/17 10:18 300 MG Cefpodoxime Proxetil (Vantin) 200 mg BID 04/01/17 09:00 04/01/17 10:20 200 MG Ceftriaxone Sodium 1 gm/ Dextrose 50 ml @ 100 mls/hr Q24H 03/28/17 19:00 03/29/17 04:16 DC 03/28/17 19:58 100 MLS/HR Ceftriaxone Sodium 1 gm/ Sodium Chloride 50 ml @ 100 mls/hr Q24H 03/29/17 19:00 03/31/17 23:00 DC 03/31/17 18:08 100 MLS/HR Ceftriaxone Sodium 50 ml @ 100 mls/hr 1X ONCE 03/27/17 19:30 03/27/17 19:59 DC 03/27/17 19:32 100 MLS/HR Diphenhydramine HCl (Benadryl) 25 mg 1X PRN PRN 03/29/17 15:15 03/30/17 15:14 DC Docusate Sodium (Colace) 100 mg PRN DAILY PRN 03/27/17 18:45 Duloxetine HCl (Cymbalta) 120 mg DAILY 03/28/17 09:00 04/01/17 10:19 120 MG Enoxaparin Sodium (Lovenox 40mg Syringe) 40 mg Q24H 03/27/17 21:00 03/31/17 20:34 40 MG Fentanyl Citrate (Fentanyl 2ml Vial) 100 mcg 1X ONCE 03/28/17 15:45 03/28/17 15:46 DC 03/28/17 16:14 100 MCG Gabapentin (Neurontin) 300 mg TID 03/27/17 21:00 04/01/17 13:21 300 MG Heparin Sodium (Porcine) (Heparin Sodium) 2,000 unit 1X ONCE 04/01/17 07:45 04/01/17 07:47 DC 04/01/17 08:21 2,000 UNIT Heparin Sodium/ Sodium Chloride 1,000 unit 1X ONCE 03/28/17 15:45 03/28/17 15:46 DC 03/28/17 16:14 1,000 UNIT Hydralazine HCl (Apresoline Inj) 10 mg PRN Q4HRS PRN 03/27/17 18:45 Lactobacillus Rhamnosus (Culturelle) 1 cap BID 03/29/17 21:00 04/01/17 10:18 1 CAP Lidocaine/ Epinephrine (Xylocaine 1%-Epi 1:100,000) 20 ml 1X ONCE 03/28/17 15:45 03/28/17 15:46 DC 03/28/17 16:15 9 ML Losartan Potassium (Cozaar) 100 mg DAILY 03/28/17 09:00 04/01/17 10:19 100 MG Midazolam HCl (Versed) 2 mg 1X ONCE 03/28/17 15:45 03/28/17 15:46 DC 03/28/17 16:15 2 MG Morphine Sulfate 2 mg PRN Q2HR PRN 03/27/17 18:45 Ondansetron HCl (Zofran) 4 mg PRN Q6HRS PRN 03/27/17 18:45 03/28/17 19:58 4 MG Potassium Chloride/Sodium Chloride 1,000 ml @ 0 mls/hr 1X ONCE 04/01/17 08:30 04/01/17 08:31 DC 04/01/17 08:22 3,000 MLS/HR Potassium Acetate 10 meq/Sodium Chloride 1,005 ml @ 0 mls/hr Q0M ONCE 03/31/17 10:00 03/31/17 10:01 DC 03/31/17 11:38 100 MLS/HR Potassium Chloride (Klor-Con) 40 meq 1X ONCE 03/28/17 12:00 03/28/17 12:01 DC 03/28/17 13:31 40 MEQ Prednisone (Prednisone) 10 mg DAILY 03/28/17 18:00 04/01/17 10:17 10 MG Pyridostigmine [place] (Mestinon) 60 mg QID 03/27/17 21:00 04/01/17 13:21 60 MG Sodium Chloride 1,000 ml @ 1,000 mls/hr Q1H PRN 03/29/17 15:12 03/29/17 21:11 DC 03/29/17 16:30 1,000 MLS/HR Tramadol HCl (Ultram) 50 mg PRN Q6HRS PRN 03/27/17 18:45 03/28/17 19:59 50 MG Vitamin D (Vitamin D3) 1,000 unit DAILY 03/28/17 09:00 04/01/17 10:20 1,000 UNIT Lab Laboratory Tests Test 04/01/17 03:45 White Blood Count 10.4 x10^3/uL (4.0-11.0) Red Blood Count 4.57 x10^6/uL (3.50-5.40) Hemoglobin 11.6 g/dL (12.0-15.5) Hematocrit 36.9 % (36.0-47.0) Mean Corpuscular Volume 81 fL (79-100) Mean Corpuscular Hemoglobin 25 pg (25-35) Mean Corpuscular Hemoglobin Concent 31 g/dL (31-37) Red Cell Distribution Width 20.0 % (11.5-14.5) Platelet Count 223 x10^3/uL (140-400) Neutrophils (%) (Auto) 57 % (31-73) Lymphocytes (%) (Auto) 30 % (24-48) Monocytes (%) (Auto) 10 % (0-9) Eosinophils (%) (Auto) 3 % (0-3) Basophils (%) (Auto) 1 % (0-3) Neutrophils # (Auto) 6.0 x10^3uL (1.8-7.7) Lymphocytes # (Auto) 3.1 x10^3/uL (1.0-4.8) Monocytes # (Auto) 1.0 x10^3/uL (0.0-1.1) Eosinophils # (Auto) 0.3 x10^3/uL (0.0-0.7) Basophils # (Auto) 0.1 x10^3/uL (0.0-0.2) Prothrombin Time 14.3 SEC (11.7-14.0) Prothromb Time International Ratio 1.2 (0.8-1.1) Activated Partial Thromboplast Time 37 SEC (24-38) Fibrinogen 181 mg/dL (200-440) Sodium Level 143 mmol/L (136-145) Potassium Level 3.3 mmol/L (3.5-5.1) Chloride Level 108 mmol/L (98-107) Carbon Dioxide Level 29 mmol/L (21-32) Anion Gap 6 (6-14) Blood Urea Nitrogen 11 mg/dL (7-20) Creatinine 0.5 mg/dL (0.6-1.0) Estimated GFR (Cockcroft-Gault) 123.1 BUN/Creatinine Ratio 22 (6-20) Glucose Level 85 mg/dL (70-99) Calcium Level 9.0 mg/dL (8.5-10.1) Magnesium Level 1.7 mg/dL (1.8-2.4) Total Bilirubin 0.3 mg/dL (0.2-1.0) Aspartate Amino Transf (AST/SGOT) 14 U/L (15-37) Alanine Aminotransferase (ALT/SGPT) 12 U/L (14-59) Alkaline Phosphatase 42 U/L (46-116) Total Protein 4.9 g/dL (6.4-8.2) Albumin 3.1 g/dL (3.4-5.0) Albumin/Globulin Ratio 1.7 (1.0-1.7) OMI AMIN MD Apr 01, 2017 14:04
[2017-04-01] MEDS ORDERED: MAGNESIUM SULFATE 1GM 100 ML IV ONE (14:15)
[2017-04-01] MEDS ORDERED: POTASSIUM CHLORIDE 20 MEQ TABLET.ER. PO ONE (14:30)
[2017-04-01 15:00] VITALS: BP 103/50
[2017-04-01 19:00] VITALS: BP 96/51
[2017-04-01] MEDS: ATORVASTATIN CALCIUM 10 MG TABLET. PO SCH (20:32)
[2017-04-01] MEDS: ENOXAPARIN 40 MG/0.4 ML SYRINGE. SQ SCH (20:33)
[2017-04-01] MEDS: HYDROcodone/APAP 7.5/325MG 1 TAB TABLET PO PRN (22:27)
[2017-04-01 22:41] VITALS: BP 138/58
[2017-04-02 02:32] VITALS: BP 114/57
[2017-04-02 07:00] VITALS: BP 131/59
[2017-04-02 07:28] LABS: BASO # 0.1 x10^3/uL (0.0-0.2); BASO % 1 % (0-3); EOS % 3 % (0-3); HEMATOCRIT 41.6 % (36.0-47.0); LYMPH # 4.3 x10^3/uL (1.0-4.8); LYMPH % 40 % (24-48); MEAN CORPUSCULAR HEMOGLOBIN 25 pg (25-35); MEAN CORPUSCULAR HGB CONC 31 g/dL (31-37); MEAN CORPUSCULAR VOLUME 80 fL (79-100); MONO % 9 % (0-9); NEUT % 48 % (31-73); PLATELET COUNT 276 x10^3/uL (140-400); RED BLOOD COUNT 5.19 x10^6/uL (3.50-5.40); RED CELL DISTRIBUTION WIDTH 20.4 % (11.5-14.5); WHITE BLOOD COUNT 10.8 x10^3/uL (4.0-11.0)
[2017-04-02 07:31] LABS: ALBUMIN 3.7 g/dL (3.4-5.0); ALBUMIN/GLOBULIN RATIO 1.6 (1.0-1.7); CALCIUM 9.1 mg/dL (8.5-10.1); CREATININE 0.5 mg/dL (0.6-1.0); GFR 123.1; POTASSIUM 3.5 mmol/L (3.5-5.1); TOTAL BILIRUBIN 0.3 mg/dL (0.2-1.0)
[2017-04-02 08:26] VITALS: BP 126/88
[2017-04-02] MEDS: LOSARTAN POTASSIUM 50 MG TABLET. PO SCH (10:20)
[2017-04-02] MEDS: DULoxetine HCL 30 MG CAPSULE.DR PO SCH (10:20)
[2017-04-02] MEDS: GABAPENTIN 300 MG CAPSULE. PO SCH ×3 (10:20→20:25)
[2017-04-02] MEDS: predniSONE 10 MG TABLET PO SCH (10:21)
[2017-04-02] MEDS: amLODIPine BESYLATE 10 MG TABLET PO SCH (10:21)
[2017-04-02] MEDS: LACTOBACILLUS RHAMNOSUS GG 1 CAPSULE. PO SCH ×2 (10:21→20:26)
[2017-04-02] MEDS: buPROPion XL 150 MG TAB.ER.24H. PO SCH (10:21)
[2017-04-02] MEDS: CHOLECALCIFEROL (VITAMIN D3) 1,000 UNIT TABLET PO SCH (10:21)
[2017-04-02] MEDS: CEFPODOXIME PROXETIL 100 MG TABLET. PO SCH ×2 (10:21→20:25)
[2017-04-02] MEDS: PYRIDOSTIGMINE BROMIDE 60 MG TABLET PO SCH ×4 (10:21→20:26)
[2017-04-02 11:00] VITALS: BP 124/61
--- NOTE | 2017-04-02 12:40 | PDOC ---
PROGRESS NOTES Chief Complaint Chief Complaint Extremity weakness with myasthenia gravis 1. MG 2. Hx hip dislocation (artificial joint) 3. CAD 4. HTN 5. HLD 6. Hypokalemia 7. Hx pericarditis 8. ZENON 9. B12 deficiency 10. Peripheral neuropathy 11. Morbid obesity 12. R subconjunctival hemorrhage 14. external stressors: in rehab, daughter attempted suicide. History of Present Illness History of Present Illness Pt is a pleasant 66 year old female who presents with myasthenia gravis. Pt was seen while resting comfortably in a chair. Pt. is alert, oriented and no in acute distress, however, there is R eyelid droopiness. Pt also complained of R foot clumsiness and hitting the bed with it when walking. Nevertheless, she states that she feels better. Pt followed by neurology and nephrology. Pt. has a tunnel cath placed by IR. Probably discharge to SNU next week. Will continue to monitor for now. Vitals Vitals Vital Signs Date Time Temp Pulse Resp B/P (MAP) Pulse Ox O2 Delivery O2 Flow Rate FiO2 04/02/17 11:00 98.3 72 22 124/61 (82) 98 Room Air 98.3 Physical Exam General: Alert, Oriented X3, Cooperative, No acute distress Heart: Regular rate, Normal S1, Normal S2 Lungs: Clear Abdomen: Normal bowel sounds, No tenderness Extremities: No clubbing, No edema Skin: No rashes, No significant lesion Labs LABS Laboratory Tests Test 04/02/17 06:45 White Blood Count 10.8 x10^3/uL (4.0-11.0) Red Blood Count 5.19 x10^6/uL (3.50-5.40) Hemoglobin 13.0 g/dL (12.0-15.5) Hematocrit 41.6 % (36.0-47.0) Mean Corpuscular Volume 80 fL (79-100) Mean Corpuscular Hemoglobin 25 pg (25-35) Mean Corpuscular Hemoglobin Concent 31 g/dL (31-37) Red Cell Distribution Width 20.4 % (11.5-14.5) Platelet Count 276 x10^3/uL (140-400) Neutrophils (%) (Auto) 48 % (31-73) Lymphocytes (%) (Auto) 40 % (24-48) Monocytes (%) (Auto) 9 % (0-9) Eosinophils (%) (Auto) 3 % (0-3) Basophils (%) (Auto) 1 % (0-3) Neutrophils # (Auto) 5.2 x10^3uL (1.8-7.7) Lymphocytes # (Auto) 4.3 x10^3/uL (1.0-4.8) Monocytes # (Auto) 0.9 x10^3/uL (0.0-1.1) Eosinophils # (Auto) 0.3 x10^3/uL (0.0-0.7) Basophils # (Auto) 0.1 x10^3/uL (0.0-0.2) Sodium Level 145 mmol/L (136-145) Potassium Level 3.5 mmol/L (3.5-5.1) Chloride Level 108 mmol/L (98-107) Carbon Dioxide Level 33 mmol/L (21-32) Anion Gap 4 (6-14) Blood Urea Nitrogen 9 mg/dL (7-20) Creatinine 0.5 mg/dL (0.6-1.0) Estimated GFR (Cockcroft-Gault) 123.1 BUN/Creatinine Ratio 18 (6-20) Glucose Level 82 mg/dL (70-99) Calcium Level 9.1 mg/dL (8.5-10.1) Total Bilirubin 0.3 mg/dL (0.2-1.0) Aspartate Amino Transf (AST/SGOT) 15 U/L (15-37) Alanine Aminotransferase (ALT/SGPT) 19 U/L (14-59) Alkaline Phosphatase 50 U/L (46-116) Total Protein 6.0 g/dL (6.4-8.2) Albumin 3.7 g/dL (3.4-5.0) Albumin/Globulin Ratio 1.6 (1.0-1.7) Review of Systems Review of Systems weakness and fatigue Assessment and Plan Assessmemt and Plan Problems Medical Problems: (1) Hyperglycemia Status: Acute (2) Urinary tract infection Status: Acute Assessment: 1. MG - Extremity weakness 2. Hx hip dislocation (artificial joint) 3. CAD 4. HTN 5. HLD 6. Hypokalemia 7. Hx pericarditis 8. ZENON 9. B12 deficiency 10. Peripheral neuropathy 11. Morbid obesity 12. R subconjunctival hemorrhage 14. external stressors: in rehab, daughter attempted suicide. Plan: Continue current medication PT/OT Awaiting neuro input Awaiting nepho input Recheck labs Problems: Comment Review of Relevant I have reviewed the following items antonio (where applicable) has been applied. Labs Laboratory Tests Test 04/01/17 03:45 04/02/17 06:45 White Blood Count 10.4 x10^3/uL (4.0-11.0) 10.8 x10^3/uL (4.0-11.0) Red Blood Count 4.57 x10^6/uL (3.50-5.40) 5.19 x10^6/uL (3.50-5.40) Hemoglobin 11.6 g/dL (12.0-15.5) 13.0 g/dL (12.0-15.5) Hematocrit 36.9 % (36.0-47.0) 41.6 % (36.0-47.0) Mean Corpuscular Volume 81 fL (79-100) 80 fL (79-100) Mean Corpuscular Hemoglobin 25 pg (25-35) 25 pg (25-35) Mean Corpuscular Hemoglobin Concent 31 g/dL (31-37) 31 g/dL (31-37) Red Cell Distribution Width 20.0 % (11.5-14.5) 20.4 % (11.5-14.5) Platelet Count 223 x10^3/uL (140-400) 276 x10^3/uL (140-400) Neutrophils (%) (Auto) 57 % (31-73) 48 % (31-73) Lymphocytes (%) (Auto) 30 % (24-48) 40 % (24-48) Monocytes (%) (Auto) 10 % (0-9) 9 % (0-9) Eosinophils (%) (Auto) 3 % (0-3) 3 % (0-3) Basophils (%) (Auto) 1 % (0-3) 1 % (0-3) Neutrophils # (Auto) 6.0 x10^3uL (1.8-7.7) 5.2 x10^3uL (1.8-7.7) Lymphocytes # (Auto) 3.1 x10^3/uL (1.0-4.8) 4.3 x10^3/uL (1.0-4.8) Monocytes # (Auto) 1.0 x10^3/uL (0.0-1.1) 0.9 x10^3/uL (0.0-1.1) Eosinophils # (Auto) 0.3 x10^3/uL (0.0-0.7) 0.3 x10^3/uL (0.0-0.7) Basophils # (Auto) 0.1 x10^3/uL (0.0-0.2) 0.1 x10^3/uL (0.0-0.2) Prothrombin Time 14.3 SEC (11.7-14.0) Prothromb Time International Ratio 1.2 (0.8-1.1) Activated Partial Thromboplast Time 37 SEC (24-38) Fibrinogen 181 mg/dL (200-440) Sodium Level 143 mmol/L (136-145) 145 mmol/L (136-145) Potassium Level 3.3 mmol/L (3.5-5.1) 3.5 mmol/L (3.5-5.1) Chloride Level 108 mmol/L (98-107) 108 mmol/L (98-107) Carbon Dioxide Level 29 mmol/L (21-32) 33 mmol/L (21-32) Anion Gap 6 (6-14) 4 (6-14) Blood Urea Nitrogen 11 mg/dL (7-20) 9 mg/dL (7-20) Creatinine 0.5 mg/dL (0.6-1.0) 0.5 mg/dL (0.6-1.0) Estimated GFR (Cockcroft-Gault) 123.1 123.1 BUN/Creatinine Ratio 22 (6-20) 18 (6-20) Glucose Level 85 mg/dL (70-99) 82 mg/dL (70-99) Calcium Level 9.0 mg/dL (8.5-10.1) 9.1 mg/dL (8.5-10.1) Magnesium Level 1.7 mg/dL (1.8-2.4) Total Bilirubin 0.3 mg/dL (0.2-1.0) 0.3 mg/dL (0.2-1.0) Aspartate Amino Transf (AST/SGOT) 14 U/L (15-37) 15 U/L (15-37) Alanine Aminotransferase (ALT/SGPT) 12 U/L (14-59) 19 U/L (14-59) Alkaline Phosphatase 42 U/L (46-116) 50 U/L (46-116) Total Protein 4.9 g/dL (6.4-8.2) 6.0 g/dL (6.4-8.2) Albumin 3.1 g/dL (3.4-5.0) 3.7 g/dL (3.4-5.0) Albumin/Globulin Ratio 1.7 (1.0-1.7) 1.6 (1.0-1.7) Laboratory Tests Test 04/02/17 06:45 White Blood Count 10.8 x10^3/uL (4.0-11.0) Red Blood Count 5.19 x10^6/uL (3.50-5.40) Hemoglobin 13.0 g/dL (12.0-15.5) Hematocrit 41.6 % (36.0-47.0) Mean Corpuscular Volume 80 fL (79-100) Mean Corpuscular Hemoglobin 25 pg (25-35) Mean Corpuscular Hemoglobin Concent 31 g/dL (31-37) Red Cell Distribution Width 20.4 % (11.5-14.5) Platelet Count 276 x10^3/uL (140-400) Neutrophils (%) (Auto) 48 % (31-73) Lymphocytes (%) (Auto) 40 % (24-48) Monocytes (%) (Auto) 9 % (0-9) Eosinophils (%) (Auto) 3 % (0-3) Basophils (%) (Auto) 1 % (0-3) Neutrophils # (Auto) 5.2 x10^3uL (1.8-7.7) Lymphocytes # (Auto) 4.3 x10^3/uL (1.0-4.8) Monocytes # (Auto) 0.9 x10^3/uL (0.0-1.1) Eosinophils # (Auto) 0.3 x10^3/uL (0.0-0.7) Basophils # (Auto) 0.1 x10^3/uL (0.0-0.2) Sodium Level 145 mmol/L (136-145) Potassium Level 3.5 mmol/L (3.5-5.1) Chloride Level 108 mmol/L (98-107) Carbon Dioxide Level 33 mmol/L (21-32) Anion Gap 4 (6-14) Blood Urea Nitrogen 9 mg/dL (7-20) Creatinine 0.5 mg/dL (0.6-1.0) Estimated GFR (Cockcroft-Gault) 123.1 BUN/Creatinine Ratio 18 (6-20) Glucose Level 82 mg/dL (70-99) Calcium Level 9.1 mg/dL (8.5-10.1) Total Bilirubin 0.3 mg/dL (0.2-1.0) Aspartate Amino Transf (AST/SGOT) 15 U/L (15-37) Alanine Aminotransferase (ALT/SGPT) 19 U/L (14-59) Alkaline Phosphatase 50 U/L (46-116) Total Protein 6.0 g/dL (6.4-8.2) Albumin 3.7 g/dL (3.4-5.0) Albumin/Globulin Ratio 1.6 (1.0-1.7) Microbiology 03/27/17 Urine Culture - Final, Complete 03/27/17 Urine Culture Result 1 (LUCHO) - Final, Complete 03/27/17 Urine Culture Result 2 (LUCHO) - Final, Complete 03/27/17 Antimicrobic Susceptibility - Final, Complete Medications Current Medications Alprazolam (Xanax) 1 mg PRN Q8HRS PRN PO ANXIETY Last administered on 22:27; Start 03/27/17 at 18:45 Amlodipine Besylate (Norvasc) 10 mg DAILY PO Last administered on 04/02/17 10 :21; Start 03/28/17 at 09:00 Atorvastatin Calcium (Lipitor) 10 mg QHS PO Last administered on 04/01/17 20: 32; Start 03/28/17 at 21:00 Acetaminophen/ Hydrocodone Bitart (Lortab 7.5/325) 1 tab PRN Q6HRS PRN PO PAIN Last administered on 04/01/17 22:27; Start 03/27/17 at 18:45 Pyridostigmine [place] (Mestinon) 60 mg QID PO Last administered on 04/02/17 10:21; Start 03/27/17 at 21:00 Bupropion HCl (Wellbutrin Xl) 300 mg DAILY PO Last administered on 04/02/17 10:21; Start 03/28/17 at 09:00 Vitamin D (Vitamin D3) 1,000 unit DAILY PO Last administered on 04/02/17 10: 21; Start 03/28/17 at 09:00 Duloxetine HCl (Cymbalta) 120 mg DAILY PO Last administered on 04/02/17 10:20 ; Start 03/28/17 at 09:00 Gabapentin (Neurontin) 300 mg TID PO Last administered on 04/02/17 10:20; Start 03/27/17 at 21:00 Losartan Potassium (Cozaar) 100 mg DAILY PO Last administered on 04/02/17 10: 20; Start 03/28/17 at 09:00 Acetaminophen (Tylenol) 650 mg PRN Q6HRS PRN PO FEVER; Start 03/27/17 at 18:45 Ondansetron HCl (Zofran) 4 mg PRN Q6HRS PRN IV NAUSEA/VOMITING Last administered on 03/28/17 19:58; Start 03/27/17 at 18:45 Morphine Sulfate 2 mg PRN Q2HR PRN IV PAIN; Start 03/27/17 at 18:45 Tramadol HCl (Ultram) 50 mg PRN Q6HRS PRN PO PAIN Last administered on 19:59; Start 03/27/17 at 18:45 Hydralazine HCl (Apresoline Inj) 10 mg PRN Q4HRS PRN IVP ELEVATED BP, SEE COMMENTS; Start 03/27/17 at 18:45 Docusate Sodium (Colace) 100 mg PRN DAILY PRN PO CONSTIPATION; Start 03/27/17 at 18:45 Enoxaparin Sodium (Lovenox 40mg Syringe) 40 mg Q24H SQ Last administered on 20:33; Start 03/27/17 at 21:00 Ceftriaxone Sodium 50 ml @ 100 mls/hr 1X ONCE IV Last administered on 19:32; Start 03/27/17 at 19:30; Stop 03/27/17 at 19:59; Status DC Potassium Chloride (Klor-Con) 40 meq 1X ONCE PO Last administered on 13:31; Start 03/28/17 at 12:00; Stop 03/28/17 at 12:01; Status DC Albumin Human 500 ml @ 0 mls/hr 1X ONCE IV Last administered on 03/28/17 16: 54; Start 03/28/17 at 12:45; Stop 03/28/17 at 12:54; Status DC Albumin Human 500 ml @ 125 mls/hr 1X ONCE IV Last administered on 03/28/17 16:54; Start 03/28/17 at 12:45; Stop 03/28/17 at 16:44; Status DC Albumin Human 500 ml @ 0 mls/hr 1X ONCE IV ; Start 03/28/17 at 12:45; Stop at 12:54; Status DC Albumin Human 500 ml @ 125 mls/hr 1X ONCE IV Last administered on 03/28/17 16:55; Start 03/28/17 at 12:45; Stop 03/28/17 at 16:44; Status DC Albumin Human 500 ml @ 0 mls/hr 1X ONCE IV Last administered on 03/28/17 16: 55; Start 03/28/17 at 12:45; Stop 03/28/17 at 12:54; Status DC Heparin Sodium (Porcine) (Heparin Sodium) 10,000 unit STK-MED ONCE .ROUTE ; Start 03/28/17 at 15:03; Stop 03/28/17 at 15:04; Status DC Lidocaine/ Epinephrine (Xylocaine 1%-Epi 1:100,000) 20 ml STK-MED ONCE .ROUTE ; Start 03/28/17 at 15:03; Stop 03/28/17 at 15:04; Status DC Heparin Sodium/ Sodium Chloride 500 ml @ As Directed STK-MED ONCE .ROUTE ; Start 03/28/17 at 15:03; Stop 03/28/17 at 15:04; Status DC Fentanyl Citrate (Fentanyl 2ml Vial) 100 mcg STK-MED ONCE .ROUTE ; Start at 15:29; Stop 03/28/17 at 15:30; Status DC Midazolam HCl (Versed) 2 mg STK-MED ONCE .ROUTE ; Start 03/28/17 at 15:29; Stop 03/28/17 at 15:30; Status DC Heparin Sodium/ Sodium Chloride 1,000 unit 1X ONCE IART Last administered on 03/28/17 16:14; Start 03/28/17 at 15:45; Stop 03/28/17 at 15:46; Status DC Midazolam HCl (Versed) 2 mg 1X ONCE IV Last administered on 03/28/17 16:15; Start 03/28/17 at 15:45; Stop 03/28/17 at 15:46; Status DC Fentanyl Citrate (Fentanyl 2ml Vial) 100 mcg 1X ONCE IV Last administered on 03/28/17 16:14; Start 03/28/17 at 15:45; Stop 03/28/17 at 15:46; Status DC Heparin Sodium (Porcine) (Heparin Sodium) 4,000 unit 1X ONCE IV Last administered on 03/28/17 16:16; Start 03/28/17 at 15:45; Stop 03/28/17 at 15 :46; Status DC Lidocaine/ Epinephrine (Xylocaine 1%-Epi 1:100,000) 20 ml 1X ONCE INJ Last administered on 03/28/17 16:15; Start 03/28/17 at 15:45; Stop 03/28/17 at 15 :46; Status DC Ceftriaxone Sodium 1 gm/ Dextrose 50 ml @ 100 mls/hr Q24H IV Last administered on 03/28/17 19:58; Start 03/28/17 at 19:00; Stop 03/29/17 at 04 :16; Status DC Prednisone (Prednisone) 10 mg DAILY PO Last administered on 04/02/17 10:21; Start 03/28/17 at 18:00 Ceftriaxone Sodium 1 gm/ Sodium Chloride 50 ml @ 100 mls/hr Q24H IV ; Start at 04:16; Stop 03/29/17 at 04:17; Status DC Ceftriaxone Sodium 1 gm/ Sodium Chloride 50 ml @ 100 mls/hr Q24H IV Last administered on 03/31/17 18:08; Start 03/29/17 at 19:00; Stop 03/31/17 at 23 :00; Status DC Heparin Sodium (Porcine) (Heparin Sodium) 2,000 unit 1X ONCE INT CAT Last administered on 03/29/17 16:30; Start 03/29/17 at 15:15; Stop 03/29/17 at 15 :24; Status DC Sodium Chloride 1,000 ml @ 1,000 mls/hr Q1H PRN IV hypotension Last administered on 03/29/17 16:30; Start 03/29/17 at 15:12; Stop 03/29/17 at 21 :11; Status DC Diphenhydramine HCl (Benadryl) 25 mg 1X PRN PRN IV ITCHING; Start 03/29/17 at 15:15; Stop 03/30/17 at 15:14; Status DC Diphenhydramine HCl (Benadryl) 25 mg 1X PRN PRN IV ITCHING; Start 03/29/17 at 15:15; Stop 03/30/17 at 15:14; Status DC Lactobacillus Rhamnosus (Culturelle) 1 cap BID PO Last administered on 10:21; Start 03/29/17 at 21:00 Albumin Human 2,000 ml @ 0 mls/hr 1X ONCE IV Last administered on 03/29/17 16:32; Start 03/29/17 at 16:00; Stop 03/29/17 at 16:01; Status DC Albumin Human 2,000 ml @ 0 mls/hr 1X ONCE IV ; Start 03/29/17 at 16:00; Stop 03/29/17 at 16:01; Status Cancel Potassium Chloride/Sodium Chloride 1,000 ml @ 75 mls/hr 1X ONCE IV Last administered on 03/30/17 15:27; Start 03/30/17 at 10:15; Stop 03/30/17 at 23 :34; Status DC Albumin Human 500 ml @ 125 mls/hr Q1H IV Last administered on 03/31/17 11:38 ; Start 03/30/17 at 10:15; Stop 03/30/17 at 14:14; Status DC Heparin Sodium (Porcine) (Heparin Sodium) 5,000 unit 1X ONCE IV Last administered on 03/30/17 14:30; Start 03/30/17 at 14:30; Stop 03/30/17 at 14 :39; Status DC Heparin Sodium (Porcine) (Heparin Sodium) 10,000 unit STK-MED ONCE .ROUTE ; Start 03/30/17 at 14:39; Stop 03/30/17 at 14:40; Status DC Heparin Sodium (Porcine) (Heparin Sodium) 2,000 unit 1X ONCE IV Last administered on 03/31/17 11:36; Start 03/31/17 at 09:30; Stop 03/31/17 at 09 :37; Status DC Potassium Acetate 10 meq/Sodium Chloride 1,005 ml @ 0 mls/hr Q0M ONCE IV Last administered on 03/31/17 11:38; Start 03/31/17 at 10:00; Stop 03/31/17 at 10 :01; Status DC Albumin Human 1,500 ml @ 0 mls/hr 1X ONCE IV ; Start 03/31/17 at 10:00; Stop 03/31/17 at 10:01; Status DC Cefpodoxime Proxetil (Vantin) 200 mg BID PO Last administered on 04/02/17 10: 21; Start 04/01/17 at 09:00 Heparin Sodium (Porcine) (Heparin Sodium) 2,000 unit 1X ONCE IV Last administered on 04/01/17 08:21; Start 04/01/17 at 07:45; Stop 04/01/17 at 07 :47; Status DC Albumin Human 1,500 ml @ 0 mls/hr 1X ONCE IV Last administered on 04/01/17 08:23; Start 04/01/17 at 08:30; Stop 04/01/17 at 08:31; Status DC Potassium Chloride/Sodium Chloride 1,000 ml @ 0 mls/hr 1X ONCE IV Last administered on 04/01/17 08:22; Start 04/01/17 at 08:30; Stop 04/01/17 at 08 :31; Status DC Magnesium Sulfate/ Dextrose 100 ml @ 100 mls/hr 1X ONCE IV Last administered on 04/01/17 15:03; Start 04/01/17 at 14:15; Stop 04/01/17 at 15:14; Status DC Potassium Chloride (Klor-Con) 40 meq 1X ONCE PO Last administered on 15:02; Start 04/01/17 at 14:30; Stop 04/01/17 at 14:31; Status DC Active Scripts Active Hydrocodone-Apap 7.5-325 (Hydrocodone Bit/Acetaminophen) 1 Each Tablet 1 Tab PO PRN Q6HRS PRN Amlodipine Besylate 10 Mg Tablet 10 Mg PO DAILY Reported Mestinon (Pyridostigmine Gering) 60 Mg Tablet 60 Mg PO QID Cymbalta (Duloxetine Hcl) 60 Mg Capsule.dr 2 Cap PO DAILY Gabapentin 300 Mg Capsule 300 Mg PO TID Xanax (Alprazolam) 0.5 Mg Tablet 1 Mg PO PRN TID PRN Vitamin D-3 (Cholecalciferol (Vitamin D3)) 2,000 Unit Tablet 1,000 Unit PO DAILY06 Atorvastatin Calcium 10 Mg Tablet 10 Mg PO DAILY Losartan Potassium 100 Mg Tablet 100 Mg PO DAILY Bupropion Xl (Bupropion Hcl) 300 Mg Tab.er.24h 300 Mg PO DAILY Vitals/I & O Vital Sign - Last 24 Hours 04/01/17 04/01/17 04/01/17 04/01/17 15:00 19:00 20:00 22:27 Temp 97.8 97.5 97.8 97.5 Pulse 70 78 Resp 18 18 B/P (MAP) 103/50 (67) 96/51 (66) Pulse Ox 98 95 O2 Delivery Room Air Room Air Room Air Room Air 04/01/17 04/02/17 04/02/17 04/02/17 22:41 00:06 02:32 07:00 Temp 97.8 97.9 97.5 97.8 97.9 97.5 Pulse 55 66 64 Resp 17 19 18 B/P (MAP) 138/58 (84) 114/57 (76) 131/59 (83) Pulse Ox 93 94 99 O2 Delivery Room Air Room Air BiPAP/CPAP Room Air 04/02/17 04/02/17 04/02/17 04/02/17 08:26 10:20 10:21 11:00 Temp 98.6 98.3 98.6 98.3 Pulse 109 109 109 72 Resp 22 22 B/P (MAP) 126/88 (101) 126/88 126/88 124/61 (82) Pulse Ox 97 98 O2 Delivery Room Air Room Air UNA AGUILAR III DO Apr 02, 2017 12:40
[2017-04-02 13:43] LABS: ANISOCYTOSIS MOD; HYPOCHROMIA MOD; OVALOCYTES FEW; PLT ESTIMATE ADEQUATE (ADEQUATE)
[2017-04-02 19:00] VITALS: BP 114/59
[2017-04-02] MEDS: ATORVASTATIN CALCIUM 10 MG TABLET. PO SCH (20:26)
[2017-04-02] MEDS: ENOXAPARIN 40 MG/0.4 ML SYRINGE. SQ SCH (20:27)
[2017-04-02 23:00] VITALS: BP 133/63
[2017-04-03 03:00] VITALS: BP 128/67
[2017-04-03 04:15] LABS: BASO # 0.1 x10^3/uL (0.0-0.2); BASO % 1 % (0-3); EOS % 3 % (0-3); HEMATOCRIT 37.7 % (36.0-47.0); LYMPH # 3.1 x10^3/uL (1.0-4.8); LYMPH % 34 % (24-48); MEAN CORPUSCULAR HEMOGLOBIN 26 pg (25-35); MEAN CORPUSCULAR HGB CONC 32 g/dL (31-37); MEAN CORPUSCULAR VOLUME 81 fL (79-100); MONO % 8 % (0-9); NEUT % 54 % (31-73); PLATELET COUNT 263 x10^3/uL (140-400); RED BLOOD COUNT 4.67 x10^6/uL (3.50-5.40); RED CELL DISTRIBUTION WIDTH 19.7 % (11.5-14.5)
[2017-04-03 04:40] LABS: CALCIUM 9.1 mg/dL (8.5-10.1); CREATININE 0.6 mg/dL (0.6-1.0); GFR 99.7; POTASSIUM 3.3 mmol/L (3.5-5.1)
[2017-04-03 07:00] VITALS: BP 147/61
[2017-04-03] MEDS: DULoxetine HCL 30 MG CAPSULE.DR PO SCH (08:56)
[2017-04-03] MEDS: buPROPion XL 150 MG TAB.ER.24H. PO SCH (08:57)
[2017-04-03] MEDS: PYRIDOSTIGMINE BROMIDE 60 MG TABLET PO SCH ×4 (08:57→21:13)
[2017-04-03] MEDS: predniSONE 10 MG TABLET PO SCH (08:58)
[2017-04-03] MEDS: LOSARTAN POTASSIUM 50 MG TABLET. PO SCH (08:58)
[2017-04-03] MEDS: amLODIPine BESYLATE 10 MG TABLET PO SCH (08:58)
[2017-04-03] MEDS: LACTOBACILLUS RHAMNOSUS GG 1 CAPSULE. PO SCH ×2 (08:58→21:13)
[2017-04-03] MEDS: CHOLECALCIFEROL (VITAMIN D3) 1,000 UNIT TABLET PO SCH (08:59)
[2017-04-03] MEDS: GABAPENTIN 300 MG CAPSULE. PO SCH ×3 (08:59→21:14)
[2017-04-03] MEDS: CEFPODOXIME PROXETIL 100 MG TABLET. PO SCH ×2 (08:59→21:13)
[2017-04-03] MEDS: POTASSIUM CHLORIDE 10MEQ 100 ML IV SCH ×3 (09:08→21:18)
[2017-04-03 11:00] VITALS: BP 128/74
--- NOTE | 2017-04-03 11:01 | PDOC ---
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 Prednisone 10 mg daily, started on 03/29/17. Treat medical diseases. Subjective feels much better Objective Vital Signs Date Time Temp Pulse Resp B/P (MAP) Pulse Ox O2 Delivery O2 Flow Rate FiO2 04/03/17 08:58 66 147/61 04/03/17 08:00 Room Air 04/03/17 07:00 97.6 19 96 97.6 PHYSICAL EXAM Alert. Oriented to time, place and person. PERRL. EOMI. CN: no focal findings. Muscle tone: normal. Muscle strength: 4+/5, right hand limited due to osteoarthritis DTR: 1+ Plantar reflex: flexor Gait: not examined in bed. Sensory exam: no abnormal findings. No cerebellar signs elicited. Review of Relevant I have reviewed the following items antonio (where applicable) has been applied. Labs Laboratory Tests Test 04/02/17 06:45 04/03/17 03:21 White Blood Count 10.8 x10^3/uL (4.0-11.0) 9.0 x10^3/uL (4.0-11.0) Red Blood Count 5.19 x10^6/uL (3.50-5.40) 4.67 x10^6/uL (3.50-5.40) Hemoglobin 13.0 g/dL (12.0-15.5) 12.0 g/dL (12.0-15.5) Hematocrit 41.6 % (36.0-47.0) 37.7 % (36.0-47.0) Mean Corpuscular Volume 80 fL (79-100) 81 fL (79-100) Mean Corpuscular Hemoglobin 25 pg (25-35) 26 pg (25-35) Mean Corpuscular Hemoglobin Concent 31 g/dL (31-37) 32 g/dL (31-37) Red Cell Distribution Width 20.4 % (11.5-14.5) 19.7 % (11.5-14.5) Platelet Count 276 x10^3/uL (140-400) 263 x10^3/uL (140-400) Neutrophils (%) (Auto) 48 % (31-73) 54 % (31-73) Lymphocytes (%) (Auto) 40 % (24-48) 34 % (24-48) Monocytes (%) (Auto) 9 % (0-9) 8 % (0-9) Eosinophils (%) (Auto) 3 % (0-3) 3 % (0-3) Basophils (%) (Auto) 1 % (0-3) 1 % (0-3) Neutrophils # (Auto) 5.2 x10^3uL (1.8-7.7) 4.9 x10^3uL (1.8-7.7) Lymphocytes # (Auto) 4.3 x10^3/uL (1.0-4.8) 3.1 x10^3/uL (1.0-4.8) Monocytes # (Auto) 0.9 x10^3/uL (0.0-1.1) 0.7 x10^3/uL (0.0-1.1) Eosinophils # (Auto) 0.3 x10^3/uL (0.0-0.7) 0.3 x10^3/uL (0.0-0.7) Basophils # (Auto) 0.1 x10^3/uL (0.0-0.2) 0.1 x10^3/uL (0.0-0.2) Platelet Estimate Adequate (ADEQUATE) Hypochromasia Mod Anisocytosis Mod Ovalocytes Few Sodium Level 145 mmol/L (136-145) 144 mmol/L (136-145) Potassium Level 3.5 mmol/L (3.5-5.1) 3.3 mmol/L (3.5-5.1) Chloride Level 108 mmol/L (98-107) 107 mmol/L (98-107) Carbon Dioxide Level 33 mmol/L (21-32) 33 mmol/L (21-32) Anion Gap 4 (6-14) 4 (6-14) Blood Urea Nitrogen 9 mg/dL (7-20) 13 mg/dL (7-20) Creatinine 0.5 mg/dL (0.6-1.0) 0.6 mg/dL (0.6-1.0) Estimated GFR (Cockcroft-Gault) 123.1 99.7 BUN/Creatinine Ratio 18 (6-20) Glucose Level 82 mg/dL (70-99) 83 mg/dL (70-99) Calcium Level 9.1 mg/dL (8.5-10.1) 9.1 mg/dL (8.5-10.1) Total Bilirubin 0.3 mg/dL (0.2-1.0) Aspartate Amino Transf (AST/SGOT) 15 U/L (15-37) Alanine Aminotransferase (ALT/SGPT) 19 U/L (14-59) Alkaline Phosphatase 50 U/L (46-116) Total Protein 6.0 g/dL (6.4-8.2) Albumin 3.7 g/dL (3.4-5.0) Albumin/Globulin Ratio 1.6 (1.0-1.7) Laboratory Tests Test 04/03/17 03:21 White Blood Count 9.0 x10^3/uL (4.0-11.0) Red Blood Count 4.67 x10^6/uL (3.50-5.40) Hemoglobin 12.0 g/dL (12.0-15.5) Hematocrit 37.7 % (36.0-47.0) Mean Corpuscular Volume 81 fL (79-100) Mean Corpuscular Hemoglobin 26 pg (25-35) Mean Corpuscular Hemoglobin Concent 32 g/dL (31-37) Red Cell Distribution Width 19.7 % (11.5-14.5) Platelet Count 263 x10^3/uL (140-400) Neutrophils (%) (Auto) 54 % (31-73) Lymphocytes (%) (Auto) 34 % (24-48) Monocytes (%) (Auto) 8 % (0-9) Eosinophils (%) (Auto) 3 % (0-3) Basophils (%) (Auto) 1 % (0-3) Neutrophils # (Auto) 4.9 x10^3uL (1.8-7.7) Lymphocytes # (Auto) 3.1 x10^3/uL (1.0-4.8) Monocytes # (Auto) 0.7 x10^3/uL (0.0-1.1) Eosinophils # (Auto) 0.3 x10^3/uL (0.0-0.7) Basophils # (Auto) 0.1 x10^3/uL (0.0-0.2) Sodium Level 144 mmol/L (136-145) Potassium Level 3.3 mmol/L (3.5-5.1) Chloride Level 107 mmol/L (98-107) Carbon Dioxide Level 33 mmol/L (21-32) Anion Gap 4 (6-14) Blood Urea Nitrogen 13 mg/dL (7-20) Creatinine 0.6 mg/dL (0.6-1.0) Estimated GFR (Cockcroft-Gault) 99.7 Glucose Level 83 mg/dL (70-99) Calcium Level 9.1 mg/dL (8.5-10.1) Microbiology 03/27/17 Urine Culture - Final, Complete 03/27/17 Urine Culture Result 1 (LUCHO) - Final, Complete 03/27/17 Urine Culture Result 2 (LUCHO) - Final, Complete 03/27/17 Antimicrobic Susceptibility - Final, Complete Medications Current Medications Alprazolam (Xanax) 1 mg PRN Q8HRS PRN PO ANXIETY Last administered on 22:27; Start 03/27/17 at 18:45 Amlodipine Besylate (Norvasc) 10 mg DAILY PO Last administered on 04/03/17 08 :58; Start 03/28/17 at 09:00 Atorvastatin Calcium (Lipitor) 10 mg QHS PO Last administered on 04/02/17 20: 26; Start 03/28/17 at 21:00 Acetaminophen/ Hydrocodone Bitart (Lortab 7.5/325) 1 tab PRN Q6HRS PRN PO PAIN Last administered on 04/01/17 22:27; Start 03/27/17 at 18:45 Pyridostigmine [place] (Mestinon) 60 mg QID PO Last administered on 04/03/17 08:57; Start 03/27/17 at 21:00 Bupropion HCl (Wellbutrin Xl) 300 mg DAILY PO Last administered on 04/03/17 08:57; Start 03/28/17 at 09:00 Vitamin D (Vitamin D3) 1,000 unit DAILY PO Last administered on 04/03/17 08: 59; Start 03/28/17 at 09:00 Duloxetine HCl (Cymbalta) 120 mg DAILY PO Last administered on 04/03/17 08:56 ; Start 03/28/17 at 09:00 Gabapentin (Neurontin) 300 mg TID PO Last administered on 04/03/17 08:59; Start 03/27/17 at 21:00 Losartan Potassium (Cozaar) 100 mg DAILY PO Last administered on 04/03/17 08: 58; Start 03/28/17 at 09:00 Acetaminophen (Tylenol) 650 mg PRN Q6HRS PRN PO FEVER; Start 03/27/17 at 18:45 Ondansetron HCl (Zofran) 4 mg PRN Q6HRS PRN IV NAUSEA/VOMITING Last administered on 03/28/17 19:58; Start 03/27/17 at 18:45 Morphine Sulfate 2 mg PRN Q2HR PRN IV PAIN; Start 03/27/17 at 18:45 Tramadol HCl (Ultram) 50 mg PRN Q6HRS PRN PO PAIN Last administered on 19:59; Start 03/27/17 at 18:45 Hydralazine HCl (Apresoline Inj) 10 mg PRN Q4HRS PRN IVP ELEVATED BP, SEE COMMENTS; Start 03/27/17 at 18:45 Docusate Sodium (Colace) 100 mg PRN DAILY PRN PO CONSTIPATION; Start 03/27/17 at 18:45 Enoxaparin Sodium (Lovenox 40mg Syringe) 40 mg Q24H SQ Last administered on 20:27; Start 03/27/17 at 21:00 Ceftriaxone Sodium 50 ml @ 100 mls/hr 1X ONCE IV Last administered on 19:32; Start 03/27/17 at 19:30; Stop 03/27/17 at 19:59; Status DC Potassium Chloride (Klor-Con) 40 meq 1X ONCE PO Last administered on 13:31; Start 03/28/17 at 12:00; Stop 03/28/17 at 12:01; Status DC Albumin Human 500 ml @ 0 mls/hr 1X ONCE IV Last administered on 03/28/17 16: 54; Start 03/28/17 at 12:45; Stop 03/28/17 at 12:54; Status DC Albumin Human 500 ml @ 125 mls/hr 1X ONCE IV Last administered on 03/28/17 16:54; Start 03/28/17 at 12:45; Stop 03/28/17 at 16:44; Status DC Albumin Human 500 ml @ 0 mls/hr 1X ONCE IV ; Start 03/28/17 at 12:45; Stop at 12:54; Status DC Albumin Human 500 ml @ 125 mls/hr 1X ONCE IV Last administered on 03/28/17 16:55; Start 03/28/17 at 12:45; Stop 03/28/17 at 16:44; Status DC Albumin Human 500 ml @ 0 mls/hr 1X ONCE IV Last administered on 03/28/17 16: 55; Start 03/28/17 at 12:45; Stop 03/28/17 at 12:54; Status DC Heparin Sodium (Porcine) (Heparin Sodium) 10,000 unit STK-MED ONCE .ROUTE ; Start 03/28/17 at 15:03; Stop 03/28/17 at 15:04; Status DC Lidocaine/ Epinephrine (Xylocaine 1%-Epi 1:100,000) 20 ml STK-MED ONCE .ROUTE ; Start 03/28/17 at 15:03; Stop 03/28/17 at 15:04; Status DC Heparin Sodium/ Sodium Chloride 500 ml @ As Directed STK-MED ONCE .ROUTE ; Start 03/28/17 at 15:03; Stop 03/28/17 at 15:04; Status DC Fentanyl Citrate (Fentanyl 2ml Vial) 100 mcg STK-MED ONCE .ROUTE ; Start at 15:29; Stop 03/28/17 at 15:30; Status DC Midazolam HCl (Versed) 2 mg STK-MED ONCE .ROUTE ; Start 03/28/17 at 15:29; Stop 03/28/17 at 15:30; Status DC Heparin Sodium/ Sodium Chloride 1,000 unit 1X ONCE IART Last administered on 03/28/17 16:14; Start 03/28/17 at 15:45; Stop 03/28/17 at 15:46; Status DC Midazolam HCl (Versed) 2 mg 1X ONCE IV Last administered on 03/28/17 16:15; Start 03/28/17 at 15:45; Stop 03/28/17 at 15:46; Status DC Fentanyl Citrate (Fentanyl 2ml Vial) 100 mcg 1X ONCE IV Last administered on 03/28/17 16:14; Start 03/28/17 at 15:45; Stop 03/28/17 at 15:46; Status DC Heparin Sodium (Porcine) (Heparin Sodium) 4,000 unit 1X ONCE IV Last administered on 03/28/17 16:16; Start 03/28/17 at 15:45; Stop 03/28/17 at 15 :46; Status DC Lidocaine/ Epinephrine (Xylocaine 1%-Epi 1:100,000) 20 ml 1X ONCE INJ Last administered on 03/28/17 16:15; Start 03/28/17 at 15:45; Stop 03/28/17 at 15 :46; Status DC Ceftriaxone Sodium 1 gm/ Dextrose 50 ml @ 100 mls/hr Q24H IV Last administered on 03/28/17 19:58; Start 03/28/17 at 19:00; Stop 03/29/17 at 04 :16; Status DC Prednisone (Prednisone) 10 mg DAILY PO Last administered on 04/03/17 08:58; Start 03/28/17 at 18:00 Ceftriaxone Sodium 1 gm/ Sodium Chloride 50 ml @ 100 mls/hr Q24H IV ; Start at 04:16; Stop 03/29/17 at 04:17; Status DC Ceftriaxone Sodium 1 gm/ Sodium Chloride 50 ml @ 100 mls/hr Q24H IV Last administered on 03/31/17 18:08; Start 03/29/17 at 19:00; Stop 03/31/17 at 23 :00; Status DC Heparin Sodium (Porcine) (Heparin Sodium) 2,000 unit 1X ONCE INT CAT Last administered on 03/29/17 16:30; Start 03/29/17 at 15:15; Stop 03/29/17 at 15 :24; Status DC Sodium Chloride 1,000 ml @ 1,000 mls/hr Q1H PRN IV hypotension Last administered on 03/29/17 16:30; Start 03/29/17 at 15:12; Stop 03/29/17 at 21 :11; Status DC Diphenhydramine HCl (Benadryl) 25 mg 1X PRN PRN IV ITCHING; Start 03/29/17 at 15:15; Stop 03/30/17 at 15:14; Status DC Diphenhydramine HCl (Benadryl) 25 mg 1X PRN PRN IV ITCHING; Start 03/29/17 at 15:15; Stop 03/30/17 at 15:14; Status DC Lactobacillus Rhamnosus (Culturelle) 1 cap BID PO Last administered on 08:58; Start 03/29/17 at 21:00 Albumin Human 2,000 ml @ 0 mls/hr 1X ONCE IV Last administered on 03/29/17 16:32; Start 03/29/17 at 16:00; Stop 03/29/17 at 16:01; Status DC Albumin Human 2,000 ml @ 0 mls/hr 1X ONCE IV ; Start 03/29/17 at 16:00; Stop 03/29/17 at 16:01; Status Cancel Potassium Chloride/Sodium Chloride 1,000 ml @ 75 mls/hr 1X ONCE IV Last administered on 03/30/17 15:27; Start 03/30/17 at 10:15; Stop 03/30/17 at 23 :34; Status DC Albumin Human 500 ml @ 125 mls/hr Q1H IV Last administered on 03/31/17 11:38 ; Start 03/30/17 at 10:15; Stop 03/30/17 at 14:14; Status DC Heparin Sodium (Porcine) (Heparin Sodium) 5,000 unit 1X ONCE IV Last administered on 03/30/17 14:30; Start 03/30/17 at 14:30; Stop 03/30/17 at 14 :39; Status DC Heparin Sodium (Porcine) (Heparin Sodium) 10,000 unit STK-MED ONCE .ROUTE ; Start 03/30/17 at 14:39; Stop 03/30/17 at 14:40; Status DC Heparin Sodium (Porcine) (Heparin Sodium) 2,000 unit 1X ONCE IV Last administered on 03/31/17 11:36; Start 03/31/17 at 09:30; Stop 03/31/17 at 09 :37; Status DC Potassium Acetate 10 meq/Sodium Chloride 1,005 ml @ 0 mls/hr Q0M ONCE IV Last administered on 03/31/17 11:38; Start 03/31/17 at 10:00; Stop 03/31/17 at 10 :01; Status DC Albumin Human 1,500 ml @ 0 mls/hr 1X ONCE IV ; Start 03/31/17 at 10:00; Stop 03/31/17 at 10:01; Status DC Cefpodoxime Proxetil (Vantin) 200 mg BID PO Last administered on 04/03/17 08: 59; Start 04/01/17 at 09:00 Heparin Sodium (Porcine) (Heparin Sodium) 2,000 unit 1X ONCE IV Last administered on 04/01/17 08:21; Start 04/01/17 at 07:45; Stop 04/01/17 at 07 :47; Status DC Albumin Human 1,500 ml @ 0 mls/hr 1X ONCE IV Last administered on 04/01/17 08:23; Start 04/01/17 at 08:30; Stop 04/01/17 at 08:31; Status DC Potassium Chloride/Sodium Chloride 1,000 ml @ 0 mls/hr 1X ONCE IV Last administered on 04/01/17 08:22; Start 04/01/17 at 08:30; Stop 04/01/17 at 08 :31; Status DC Magnesium Sulfate/ Dextrose 100 ml @ 100 mls/hr 1X ONCE IV Last administered on 04/01/17 15:03; Start 04/01/17 at 14:15; Stop 04/01/17 at 15:14; Status DC Potassium Chloride (Klor-Con) 40 meq 1X ONCE PO Last administered on 15:02; Start 04/01/17 at 14:30; Stop 04/01/17 at 14:31; Status DC Potassium Chloride 100 ml @ 100 mls/hr Q1H IV Last administered on 04/03/17 09:08; Start 04/03/17 at 08:30; Stop 04/03/17 at 12:29 Active Scripts Active Hydrocodone-Apap 7.5-325 (Hydrocodone Bit/Acetaminophen) 1 Each Tablet 1 Tab PO PRN Q6HRS PRN Amlodipine Besylate 10 Mg Tablet 10 Mg PO DAILY Reported Mestinon (Pyridostigmine [place]) 60 Mg Tablet 60 Mg PO QID Cymbalta (Duloxetine Hcl) 60 Mg Capsule.dr 2 Cap PO DAILY Gabapentin 300 Mg Capsule 300 Mg PO TID Xanax (Alprazolam) 0.5 Mg Tablet 1 Mg PO PRN TID PRN Vitamin D-3 (Cholecalciferol (Vitamin D3)) 2,000 Unit Tablet 1,000 Unit PO DAILY06 Atorvastatin Calcium 10 Mg Tablet 10 Mg PO DAILY Losartan Potassium 100 Mg Tablet 100 Mg PO DAILY Bupropion Xl (Bupropion Hcl) 300 Mg Tab.er.24h 300 Mg PO DAILY Vitals/I & O Vital Sign - Last 24 Hours 04/02/17 04/02/17 04/02/17 04/02/17 11:00 19:00 19:50 23:00 Temp 98.3 98.5 98.1 98.3 98.5 98.1 Pulse 72 74 73 Resp 22 20 20 B/P (MAP) 124/61 (82) 114/59 (77) 133/63 (86) Pulse Ox 98 94 95 O2 Delivery Room Air Room Air Room Air Room Air 04/03/17 04/03/17 04/03/17 04/03/17 03:00 07:00 08:00 08:58 Temp 97.6 97.6 97.6 97.6 Pulse 62 66 66 Resp 20 19 B/P (MAP) 128/67 (87) 147/61 (89) 147/61 Pulse Ox 94 96 O2 Delivery BiPAP/CPAP Room Air 04/03/17 08:58 Pulse 66 B/P (MAP) 147/61 KALLI FISHER MD Apr 03, 2017 11:01
--- NOTE | 2017-04-03 12:42 | PDOC ---
PROGRESS NOTES Chief Complaint Chief Complaint Extremity weakness with myasthenia gravis 1. MG 2. Hx hip dislocation (artificial joint) 3. CAD 4. HTN 5. HLD 6. Hypokalemia 7. Hx pericarditis 8. ZENON 9. B12 deficiency 10. Peripheral neuropathy 11. Morbid obesity 12. R subconjunctival hemorrhage 14. external stressors: in rehab, daughter attempted suicide. History of Present Illness History of Present Illness Pt seen resting comfortably in chair while consoling her daughter, who is a current pt as well. Has no c/o today. In NAD, AOCx3. R eyelid droop is improved compared to bedside check yesterday. Pt being followed by neuro and nephro consults. Tunnel dialysis cath remains in, per Neuro consult note this AM it is to remain in place for the time being. Ambulating with assistance of walker. Labs indicated mild HypoK this AM, had IV potassium added several hours ago, will continue to monitor labs. Vitals Vitals Vital Signs Date Time Temp Pulse Resp B/P (MAP) Pulse Ox O2 Delivery O2 Flow Rate FiO2 04/03/17 11:00 97.8 69 18 128/74 (92) 93 97.8 04/03/17 08:00 Room Air Physical Exam General: Alert, Oriented X3, Cooperative, No acute distress Heart: Regular rate, Normal S1, Normal S2 Lungs: Clear Abdomen: Normal bowel sounds, No tenderness Extremities: No clubbing, No edema Skin: No rashes, No significant lesion Labs LABS Laboratory Tests Test 04/03/17 03:21 White Blood Count 9.0 x10^3/uL (4.0-11.0) Red Blood Count 4.67 x10^6/uL (3.50-5.40) Hemoglobin 12.0 g/dL (12.0-15.5) Hematocrit 37.7 % (36.0-47.0) Mean Corpuscular Volume 81 fL (79-100) Mean Corpuscular Hemoglobin 26 pg (25-35) Mean Corpuscular Hemoglobin Concent 32 g/dL (31-37) Red Cell Distribution Width 19.7 % (11.5-14.5) Platelet Count 263 x10^3/uL (140-400) Neutrophils (%) (Auto) 54 % (31-73) Lymphocytes (%) (Auto) 34 % (24-48) Monocytes (%) (Auto) 8 % (0-9) Eosinophils (%) (Auto) 3 % (0-3) Basophils (%) (Auto) 1 % (0-3) Neutrophils # (Auto) 4.9 x10^3uL (1.8-7.7) Lymphocytes # (Auto) 3.1 x10^3/uL (1.0-4.8) Monocytes # (Auto) 0.7 x10^3/uL (0.0-1.1) Eosinophils # (Auto) 0.3 x10^3/uL (0.0-0.7) Basophils # (Auto) 0.1 x10^3/uL (0.0-0.2) Sodium Level 144 mmol/L (136-145) Potassium Level 3.3 mmol/L (3.5-5.1) Chloride Level 107 mmol/L (98-107) Carbon Dioxide Level 33 mmol/L (21-32) Anion Gap 4 (6-14) Blood Urea Nitrogen 13 mg/dL (7-20) Creatinine 0.6 mg/dL (0.6-1.0) Estimated GFR (Cockcroft-Gault) 99.7 Glucose Level 83 mg/dL (70-99) Calcium Level 9.1 mg/dL (8.5-10.1) Review of Systems Review of Systems Pt NAD, AOCx3. Denies CP. Denies SOB. EOMI b/l. Mild and improving R eyelid droop. No facial droop, no dysarthria. Assessment and Plan Assessmemt and Plan Problems Medical Problems: (1) Hyperglycemia Status: Acute (2) Urinary tract infection Status: Acute Extremity weakness with myasthenia gravis 1. MG 2. Hx hip dislocation (artificial joint) 3. CAD 4. HTN 5. HLD 6. Hypokalemia 7. Hx pericarditis 8. ZENON 9. B12 deficiency 10. Peripheral neuropathy 11. Morbid obesity 12. R subconjunctival hemorrhage 14. external stressors: in rehab, daughter attempted suicide. Plan: Continue IV fluids Continue Mestinon as directed Continue Prednisone as directed Consult Neuro Consult Nephro Maintain dialysis catheter COntinue PT/OT SNU eval DC disposition pending Problems: Comment Review of Relevant I have reviewed the following items antonio (where applicable) has been applied. Labs Laboratory Tests Test 04/02/17 06:45 04/03/17 03:21 White Blood Count 10.8 x10^3/uL (4.0-11.0) 9.0 x10^3/uL (4.0-11.0) Red Blood Count 5.19 x10^6/uL (3.50-5.40) 4.67 x10^6/uL (3.50-5.40) Hemoglobin 13.0 g/dL (12.0-15.5) 12.0 g/dL (12.0-15.5) Hematocrit 41.6 % (36.0-47.0) 37.7 % (36.0-47.0) Mean Corpuscular Volume 80 fL (79-100) 81 fL (79-100) Mean Corpuscular Hemoglobin 25 pg (25-35) 26 pg (25-35) Mean Corpuscular Hemoglobin Concent 31 g/dL (31-37) 32 g/dL (31-37) Red Cell Distribution Width 20.4 % (11.5-14.5) 19.7 % (11.5-14.5) Platelet Count 276 x10^3/uL (140-400) 263 x10^3/uL (140-400) Neutrophils (%) (Auto) 48 % (31-73) 54 % (31-73) Lymphocytes (%) (Auto) 40 % (24-48) 34 % (24-48) Monocytes (%) (Auto) 9 % (0-9) 8 % (0-9) Eosinophils (%) (Auto) 3 % (0-3) 3 % (0-3) Basophils (%) (Auto) 1 % (0-3) 1 % (0-3) Neutrophils # (Auto) 5.2 x10^3uL (1.8-7.7) 4.9 x10^3uL (1.8-7.7) Lymphocytes # (Auto) 4.3 x10^3/uL (1.0-4.8) 3.1 x10^3/uL (1.0-4.8) Monocytes # (Auto) 0.9 x10^3/uL (0.0-1.1) 0.7 x10^3/uL (0.0-1.1) Eosinophils # (Auto) 0.3 x10^3/uL (0.0-0.7) 0.3 x10^3/uL (0.0-0.7) Basophils # (Auto) 0.1 x10^3/uL (0.0-0.2) 0.1 x10^3/uL (0.0-0.2) Platelet Estimate Adequate (ADEQUATE) Hypochromasia Mod Anisocytosis Mod Ovalocytes Few Sodium Level 145 mmol/L (136-145) 144 mmol/L (136-145) Potassium Level 3.5 mmol/L (3.5-5.1) 3.3 mmol/L (3.5-5.1) Chloride Level 108 mmol/L (98-107) 107 mmol/L (98-107) Carbon Dioxide Level 33 mmol/L (21-32) 33 mmol/L (21-32) Anion Gap 4 (6-14) 4 (6-14) Blood Urea Nitrogen 9 mg/dL (7-20) 13 mg/dL (7-20) Creatinine 0.5 mg/dL (0.6-1.0) 0.6 mg/dL (0.6-1.0) Estimated GFR (Cockcroft-Gault) 123.1 99.7 BUN/Creatinine Ratio 18 (6-20) Glucose Level 82 mg/dL (70-99) 83 mg/dL (70-99) Calcium Level 9.1 mg/dL (8.5-10.1) 9.1 mg/dL (8.5-10.1) Total Bilirubin 0.3 mg/dL (0.2-1.0) Aspartate Amino Transf (AST/SGOT) 15 U/L (15-37) Alanine Aminotransferase (ALT/SGPT) 19 U/L (14-59) Alkaline Phosphatase 50 U/L (46-116) Total Protein 6.0 g/dL (6.4-8.2) Albumin 3.7 g/dL (3.4-5.0) Albumin/Globulin Ratio 1.6 (1.0-1.7) Laboratory Tests Test 04/03/17 03:21 White Blood Count 9.0 x10^3/uL (4.0-11.0) Red Blood Count 4.67 x10^6/uL (3.50-5.40) Hemoglobin 12.0 g/dL (12.0-15.5) Hematocrit 37.7 % (36.0-47.0) Mean Corpuscular Volume 81 fL (79-100) Mean Corpuscular Hemoglobin 26 pg (25-35) Mean Corpuscular Hemoglobin Concent 32 g/dL (31-37) Red Cell Distribution Width 19.7 % (11.5-14.5) Platelet Count 263 x10^3/uL (140-400) Neutrophils (%) (Auto) 54 % (31-73) Lymphocytes (%) (Auto) 34 % (24-48) Monocytes (%) (Auto) 8 % (0-9) Eosinophils (%) (Auto) 3 % (0-3) Basophils (%) (Auto) 1 % (0-3) Neutrophils # (Auto) 4.9 x10^3uL (1.8-7.7) Lymphocytes # (Auto) 3.1 x10^3/uL (1.0-4.8) Monocytes # (Auto) 0.7 x10^3/uL (0.0-1.1) Eosinophils # (Auto) 0.3 x10^3/uL (0.0-0.7) Basophils # (Auto) 0.1 x10^3/uL (0.0-0.2) Sodium Level 144 mmol/L (136-145) Potassium Level 3.3 mmol/L (3.5-5.1) Chloride Level 107 mmol/L (98-107) Carbon Dioxide Level 33 mmol/L (21-32) Anion Gap 4 (6-14) Blood Urea Nitrogen 13 mg/dL (7-20) Creatinine 0.6 mg/dL (0.6-1.0) Estimated GFR (Cockcroft-Gault) 99.7 Glucose Level 83 mg/dL (70-99) Calcium Level 9.1 mg/dL (8.5-10.1) Microbiology 03/27/17 Urine Culture - Final, Complete 03/27/17 Urine Culture Result 1 (LUCHO) - Final, Complete 03/27/17 Urine Culture Result 2 (LUCHO) - Final, Complete 03/27/17 Antimicrobic Susceptibility - Final, Complete Medications Current Medications Alprazolam (Xanax) 1 mg PRN Q8HRS PRN PO ANXIETY Last administered on 22:27; Start 03/27/17 at 18:45 Amlodipine Besylate (Norvasc) 10 mg DAILY PO Last administered on 04/03/17 08 :58; Start 03/28/17 at 09:00 Atorvastatin Calcium (Lipitor) 10 mg QHS PO Last administered on 04/02/17 20: 26; Start 03/28/17 at 21:00 Acetaminophen/ Hydrocodone Bitart (Lortab 7.5/325) 1 tab PRN Q6HRS PRN PO PAIN Last administered on 04/01/17 22:27; Start 03/27/17 at 18:45 Pyridostigmine [place] (Mestinon) 60 mg QID PO Last administered on 04/03/17 08:57; Start 03/27/17 at 21:00 Bupropion HCl (Wellbutrin Xl) 300 mg DAILY PO Last administered on 04/03/17 08:57; Start 03/28/17 at 09:00 Vitamin D (Vitamin D3) 1,000 unit DAILY PO Last administered on 04/03/17 08: 59; Start 03/28/17 at 09:00 Duloxetine HCl (Cymbalta) 120 mg DAILY PO Last administered on 04/03/17 08:56 ; Start 03/28/17 at 09:00 Gabapentin (Neurontin) 300 mg TID PO Last administered on 04/03/17 08:59; Start 03/27/17 at 21:00 Losartan Potassium (Cozaar) 100 mg DAILY PO Last administered on 04/03/17 08: 58; Start 03/28/17 at 09:00 Acetaminophen (Tylenol) 650 mg PRN Q6HRS PRN PO FEVER; Start 03/27/17 at 18:45 Ondansetron HCl (Zofran) 4 mg PRN Q6HRS PRN IV NAUSEA/VOMITING Last administered on 03/28/17 19:58; Start 03/27/17 at 18:45 Morphine Sulfate 2 mg PRN Q2HR PRN IV PAIN; Start 03/27/17 at 18:45 Tramadol HCl (Ultram) 50 mg PRN Q6HRS PRN PO PAIN Last administered on 19:59; Start 03/27/17 at 18:45 Hydralazine HCl (Apresoline Inj) 10 mg PRN Q4HRS PRN IVP ELEVATED BP, SEE COMMENTS; Start 03/27/17 at 18:45 Docusate Sodium (Colace) 100 mg PRN DAILY PRN PO CONSTIPATION; Start 03/27/17 at 18:45 Enoxaparin Sodium (Lovenox 40mg Syringe) 40 mg Q24H SQ Last administered on 20:27; Start 03/27/17 at 21:00 Ceftriaxone Sodium 50 ml @ 100 mls/hr 1X ONCE IV Last administered on 19:32; Start 03/27/17 at 19:30; Stop 03/27/17 at 19:59; Status DC Potassium Chloride (Klor-Con) 40 meq 1X ONCE PO Last administered on 13:31; Start 03/28/17 at 12:00; Stop 03/28/17 at 12:01; Status DC Albumin Human 500 ml @ 0 mls/hr 1X ONCE IV Last administered on 03/28/17 16: 54; Start 03/28/17 at 12:45; Stop 03/28/17 at 12:54; Status DC Albumin Human 500 ml @ 125 mls/hr 1X ONCE IV Last administered on 03/28/17 16:54; Start 03/28/17 at 12:45; Stop 03/28/17 at 16:44; Status DC Albumin Human 500 ml @ 0 mls/hr 1X ONCE IV ; Start 03/28/17 at 12:45; Stop at 12:54; Status DC Albumin Human 500 ml @ 125 mls/hr 1X ONCE IV Last administered on 03/28/17 16:55; Start 03/28/17 at 12:45; Stop 03/28/17 at 16:44; Status DC Albumin Human 500 ml @ 0 mls/hr 1X ONCE IV Last administered on 03/28/17 16: 55; Start 03/28/17 at 12:45; Stop 03/28/17 at 12:54; Status DC Heparin Sodium (Porcine) (Heparin Sodium) 10,000 unit STK-MED ONCE .ROUTE ; Start 03/28/17 at 15:03; Stop 03/28/17 at 15:04; Status DC Lidocaine/ Epinephrine (Xylocaine 1%-Epi 1:100,000) 20 ml STK-MED ONCE .ROUTE ; Start 03/28/17 at 15:03; Stop 03/28/17 at 15:04; Status DC Heparin Sodium/ Sodium Chloride 500 ml @ As Directed STK-MED ONCE .ROUTE ; Start 03/28/17 at 15:03; Stop 03/28/17 at 15:04; Status DC Fentanyl Citrate (Fentanyl 2ml Vial) 100 mcg STK-MED ONCE .ROUTE ; Start at 15:29; Stop 03/28/17 at 15:30; Status DC Midazolam HCl (Versed) 2 mg STK-MED ONCE .ROUTE ; Start 03/28/17 at 15:29; Stop 03/28/17 at 15:30; Status DC Heparin Sodium/ Sodium Chloride 1,000 unit 1X ONCE IART Last administered on 03/28/17 16:14; Start 03/28/17 at 15:45; Stop 03/28/17 at 15:46; Status DC Midazolam HCl (Versed) 2 mg 1X ONCE IV Last administered on 03/28/17 16:15; Start 03/28/17 at 15:45; Stop 03/28/17 at 15:46; Status DC Fentanyl Citrate (Fentanyl 2ml Vial) 100 mcg 1X ONCE IV Last administered on 03/28/17 16:14; Start 03/28/17 at 15:45; Stop 03/28/17 at 15:46; Status DC Heparin Sodium (Porcine) (Heparin Sodium) 4,000 unit 1X ONCE IV Last administered on 03/28/17 16:16; Start 03/28/17 at 15:45; Stop 03/28/17 at 15 :46; Status DC Lidocaine/ Epinephrine (Xylocaine 1%-Epi 1:100,000) 20 ml 1X ONCE INJ Last administered on 03/28/17 16:15; Start 03/28/17 at 15:45; Stop 03/28/17 at 15 :46; Status DC Ceftriaxone Sodium 1 gm/ Dextrose 50 ml @ 100 mls/hr Q24H IV Last administered on 03/28/17 19:58; Start 03/28/17 at 19:00; Stop 03/29/17 at 04 :16; Status DC Prednisone (Prednisone) 10 mg DAILY PO Last administered on 04/03/17 08:58; Start 03/28/17 at 18:00 Ceftriaxone Sodium 1 gm/ Sodium Chloride 50 ml @ 100 mls/hr Q24H IV ; Start at 04:16; Stop 03/29/17 at 04:17; Status DC Ceftriaxone Sodium 1 gm/ Sodium Chloride 50 ml @ 100 mls/hr Q24H IV Last administered on 03/31/17 18:08; Start 03/29/17 at 19:00; Stop 03/31/17 at 23 :00; Status DC Heparin Sodium (Porcine) (Heparin Sodium) 2,000 unit 1X ONCE INT CAT Last administered on 03/29/17 16:30; Start 03/29/17 at 15:15; Stop 03/29/17 at 15 :24; Status DC Sodium Chloride 1,000 ml @ 1,000 mls/hr Q1H PRN IV hypotension Last administered on 03/29/17 16:30; Start 03/29/17 at 15:12; Stop 03/29/17 at 21 :11; Status DC Diphenhydramine HCl (Benadryl) 25 mg 1X PRN PRN IV ITCHING; Start 03/29/17 at 15:15; Stop 03/30/17 at 15:14; Status DC Diphenhydramine HCl (Benadryl) 25 mg 1X PRN PRN IV ITCHING; Start 03/29/17 at 15:15; Stop 03/30/17 at 15:14; Status DC Lactobacillus Rhamnosus (Culturelle) 1 cap BID PO Last administered on 08:58; Start 03/29/17 at 21:00 Albumin Human 2,000 ml @ 0 mls/hr 1X ONCE IV Last administered on 03/29/17 16:32; Start 03/29/17 at 16:00; Stop 03/29/17 at 16:01; Status DC Albumin Human 2,000 ml @ 0 mls/hr 1X ONCE IV ; Start 03/29/17 at 16:00; Stop 03/29/17 at 16:01; Status Cancel Potassium Chloride/Sodium Chloride 1,000 ml @ 75 mls/hr 1X ONCE IV Last administered on 03/30/17 15:27; Start 03/30/17 at 10:15; Stop 03/30/17 at 23 :34; Status DC Albumin Human 500 ml @ 125 mls/hr Q1H IV Last administered on 03/31/17 11:38 ; Start 03/30/17 at 10:15; Stop 03/30/17 at 14:14; Status DC Heparin Sodium (Porcine) (Heparin Sodium) 5,000 unit 1X ONCE IV Last administered on 03/30/17 14:30; Start 03/30/17 at 14:30; Stop 03/30/17 at 14 :39; Status DC Heparin Sodium (Porcine) (Heparin Sodium) 10,000 unit STK-MED ONCE .ROUTE ; Start 03/30/17 at 14:39; Stop 03/30/17 at 14:40; Status DC Heparin Sodium (Porcine) (Heparin Sodium) 2,000 unit 1X ONCE IV Last administered on 03/31/17 11:36; Start 03/31/17 at 09:30; Stop 03/31/17 at 09 :37; Status DC Potassium Acetate 10 meq/Sodium Chloride 1,005 ml @ 0 mls/hr Q0M ONCE IV Last administered on 03/31/17 11:38; Start 03/31/17 at 10:00; Stop 03/31/17 at 10 :01; Status DC Albumin Human 1,500 ml @ 0 mls/hr 1X ONCE IV ; Start 03/31/17 at 10:00; Stop 03/31/17 at 10:01; Status DC Cefpodoxime Proxetil (Vantin) 200 mg BID PO Last administered on 04/03/17 08: 59; Start 04/01/17 at 09:00 Heparin Sodium (Porcine) (Heparin Sodium) 2,000 unit 1X ONCE IV Last administered on 04/01/17 08:21; Start 04/01/17 at 07:45; Stop 04/01/17 at 07 :47; Status DC Albumin Human 1,500 ml @ 0 mls/hr 1X ONCE IV Last administered on 04/01/17 08:23; Start 04/01/17 at 08:30; Stop 04/01/17 at 08:31; Status DC Potassium Chloride/Sodium Chloride 1,000 ml @ 0 mls/hr 1X ONCE IV Last administered on 04/01/17 08:22; Start 04/01/17 at 08:30; Stop 04/01/17 at 08 :31; Status DC Magnesium Sulfate/ Dextrose 100 ml @ 100 mls/hr 1X ONCE IV Last administered on 04/01/17 15:03; Start 04/01/17 at 14:15; Stop 04/01/17 at 15:14; Status DC Potassium Chloride (Klor-Con) 40 meq 1X ONCE PO Last administered on 15:02; Start 04/01/17 at 14:30; Stop 04/01/17 at 14:31; Status DC Potassium Chloride 100 ml @ 100 mls/hr Q1H IV Last administered on 04/03/17 09:08; Start 04/03/17 at 08:30; Stop 04/03/17 at 12:29; Status DC Active Scripts Active Hydrocodone-Apap 7.5-325 (Hydrocodone Bit/Acetaminophen) 1 Each Tablet 1 Tab PO PRN Q6HRS PRN Amlodipine Besylate 10 Mg Tablet 10 Mg PO DAILY Reported Mestinon (Pyridostigmine [place]) 60 Mg Tablet 60 Mg PO QID Cymbalta (Duloxetine Hcl) 60 Mg Capsule.dr 2 Cap PO DAILY Gabapentin 300 Mg Capsule 300 Mg PO TID Xanax (Alprazolam) 0.5 Mg Tablet 1 Mg PO PRN TID PRN Vitamin D-3 (Cholecalciferol (Vitamin D3)) 2,000 Unit Tablet 1,000 Unit PO DAILY06 Atorvastatin Calcium 10 Mg Tablet 10 Mg PO DAILY Losartan Potassium 100 Mg Tablet 100 Mg PO DAILY Bupropion Xl (Bupropion Hcl) 300 Mg Tab.er.24h 300 Mg PO DAILY Vitals/I & O Vital Sign - Last 24 Hours 04/02/17 04/02/17 04/02/17 04/03/17 19:00 19:50 23:00 03:00 Temp 98.5 98.1 97.6 98.5 98.1 97.6 Pulse 74 73 62 Resp 20 20 20 B/P (MAP) 114/59 (77) 133/63 (86) 128/67 (87) Pulse Ox 94 95 94 O2 Delivery Room Air Room Air Room Air BiPAP/CPAP 04/03/17 04/03/17 04/03/17 04/03/17 07:00 08:00 08:58 08:58 Temp 97.6 97.6 Pulse 66 66 66 Resp 19 B/P (MAP) 147/61 (89) 147/61 147/61 Pulse Ox 96 O2 Delivery Room Air 04/03/17 11:00 Temp 97.8 97.8 Pulse 69 Resp 18 B/P (MAP) 128/74 (92) Pulse Ox 93 UNA AGUILAR III DO Apr 03, 2017 12:42
[2017-04-03 15:00] VITALS: BP 118/55
[2017-04-03] MEDS ORDERED: POTASSIUM CHLORIDE 10 MEQ TABLET.ER. PO ONE (18:15)
[2017-04-03 19:00] VITALS: BP 126/54
[2017-04-03] MEDS: ATORVASTATIN CALCIUM 10 MG TABLET. PO SCH (21:14)
[2017-04-03] MEDS: ENOXAPARIN 40 MG/0.4 ML SYRINGE. SQ SCH (21:14)
[2017-04-03 23:00] VITALS: BP 124/58
[2017-04-04 03:00] VITALS: BP 104/62
[2017-04-04 05:15] LABS: BASO # 0.1 x10^3/uL (0.0-0.2); BASO % 1 % (0-3); EOS % 3 % (0-3); HEMATOCRIT 36.8 % (36.0-47.0); HEMOGLOBIN 11.7 g/dL (12.0-15.5); LYMPH # 3.6 x10^3/uL (1.0-4.8); LYMPH % 35 % (24-48); MEAN CORPUSCULAR HEMOGLOBIN 26 pg (25-35); MEAN CORPUSCULAR HGB CONC 32 g/dL (31-37); MEAN CORPUSCULAR VOLUME 81 fL (79-100); MONO % 9 % (0-9); NEUT % 52 % (31-73); PLATELET COUNT 303 x10^3/uL (140-400); RED BLOOD COUNT 4.55 x10^6/uL (3.50-5.40); WHITE BLOOD COUNT 10.1 x10^3/uL (4.0-11.0)
[2017-04-04 05:40] LABS: CALCIUM 9.8 mg/dL (8.5-10.1); CREATININE 0.5 mg/dL (0.6-1.0); GFR 123.1; POTASSIUM 3.4 mmol/L (3.5-5.1)
[2017-04-04 07:00] VITALS: BP 164/66
[2017-04-04] MEDS ORDERED: POTASSIUM CHLORIDE 20 MEQ TABLET.ER. PO ONE (07:30)
[2017-04-04] MEDS: buPROPion XL 150 MG TAB.ER.24H. PO SCH (08:00)
[2017-04-04] MEDS: DULoxetine HCL 30 MG CAPSULE.DR PO SCH (08:00)
[2017-04-04] MEDS: LOSARTAN POTASSIUM 50 MG TABLET. PO SCH (08:01)
[2017-04-04] MEDS: GABAPENTIN 300 MG CAPSULE. PO SCH ×2 (08:01→13:16)
[2017-04-04] MEDS: PYRIDOSTIGMINE BROMIDE 60 MG TABLET PO SCH ×2 (08:02→13:16)
[2017-04-04] MEDS: predniSONE 10 MG TABLET PO SCH (08:02)
[2017-04-04] MEDS: amLODIPine BESYLATE 10 MG TABLET PO SCH (08:02)
[2017-04-04] MEDS: LACTOBACILLUS RHAMNOSUS GG 1 CAPSULE. PO SCH (08:02)
[2017-04-04] MEDS: CHOLECALCIFEROL (VITAMIN D3) 1,000 UNIT TABLET PO SCH (08:02)
[2017-04-04] MEDS: CEFPODOXIME PROXETIL 100 MG TABLET. PO SCH (08:03)
--- NOTE | 2017-04-04 10:19 | PDOC ---
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 Prednisone 10 mg daily Follow-up with neurology in one month Subjective No complaints Objective Vital Signs Date Time Temp Pulse Resp B/P (MAP) Pulse Ox O2 Delivery O2 Flow Rate FiO2 04/04/17 08:02 73 164/66 04/04/17 08:00 Room Air 04/04/17 07:00 98.2 16 99 98.2 PHYSICAL EXAM Alert. Oriented to time, place and person. PERRL. EOMI. CN: no focal findings. Muscle tone: normal. Muscle strength: 4+/5, right hand limited due to osteoarthritis DTR: 1+ Plantar reflex: flexor Gait: not examined in bed. Sensory exam: no abnormal findings. No cerebellar signs elicited. Review of Relevant I have reviewed the following items antonio (where applicable) has been applied. Labs Laboratory Tests Test 04/03/17 03:21 04/04/17 03:30 White Blood Count 9.0 x10^3/uL (4.0-11.0) 10.1 x10^3/uL (4.0-11.0) Red Blood Count 4.67 x10^6/uL (3.50-5.40) 4.55 x10^6/uL (3.50-5.40) Hemoglobin 12.0 g/dL (12.0-15.5) 11.7 g/dL (12.0-15.5) Hematocrit 37.7 % (36.0-47.0) 36.8 % (36.0-47.0) Mean Corpuscular Volume 81 fL (79-100) 81 fL (79-100) Mean Corpuscular Hemoglobin 26 pg (25-35) 26 pg (25-35) Mean Corpuscular Hemoglobin Concent 32 g/dL (31-37) 32 g/dL (31-37) Red Cell Distribution Width 19.7 % (11.5-14.5) 20.0 % (11.5-14.5) Platelet Count 263 x10^3/uL (140-400) 303 x10^3/uL (140-400) Neutrophils (%) (Auto) 54 % (31-73) 52 % (31-73) Lymphocytes (%) (Auto) 34 % (24-48) 35 % (24-48) Monocytes (%) (Auto) 8 % (0-9) 9 % (0-9) Eosinophils (%) (Auto) 3 % (0-3) 3 % (0-3) Basophils (%) (Auto) 1 % (0-3) 1 % (0-3) Neutrophils # (Auto) 4.9 x10^3uL (1.8-7.7) 5.3 x10^3uL (1.8-7.7) Lymphocytes # (Auto) 3.1 x10^3/uL (1.0-4.8) 3.6 x10^3/uL (1.0-4.8) Monocytes # (Auto) 0.7 x10^3/uL (0.0-1.1) 0.9 x10^3/uL (0.0-1.1) Eosinophils # (Auto) 0.3 x10^3/uL (0.0-0.7) 0.3 x10^3/uL (0.0-0.7) Basophils # (Auto) 0.1 x10^3/uL (0.0-0.2) 0.1 x10^3/uL (0.0-0.2) Sodium Level 144 mmol/L (136-145) 144 mmol/L (136-145) Potassium Level 3.3 mmol/L (3.5-5.1) 3.4 mmol/L (3.5-5.1) Chloride Level 107 mmol/L (98-107) 106 mmol/L (98-107) Carbon Dioxide Level 33 mmol/L (21-32) 33 mmol/L (21-32) Anion Gap 4 (6-14) 5 (6-14) Blood Urea Nitrogen 13 mg/dL (7-20) 16 mg/dL (7-20) Creatinine 0.6 mg/dL (0.6-1.0) 0.5 mg/dL (0.6-1.0) Estimated GFR (Cockcroft-Gault) 99.7 123.1 Glucose Level 83 mg/dL (70-99) 83 mg/dL (70-99) Calcium Level 9.1 mg/dL (8.5-10.1) 9.8 mg/dL (8.5-10.1) Laboratory Tests Test 04/04/17 03:30 White Blood Count 10.1 x10^3/uL (4.0-11.0) Red Blood Count 4.55 x10^6/uL (3.50-5.40) Hemoglobin 11.7 g/dL (12.0-15.5) Hematocrit 36.8 % (36.0-47.0) Mean Corpuscular Volume 81 fL (79-100) Mean Corpuscular Hemoglobin 26 pg (25-35) Mean Corpuscular Hemoglobin Concent 32 g/dL (31-37) Red Cell Distribution Width 20.0 % (11.5-14.5) Platelet Count 303 x10^3/uL (140-400) Neutrophils (%) (Auto) 52 % (31-73) Lymphocytes (%) (Auto) 35 % (24-48) Monocytes (%) (Auto) 9 % (0-9) Eosinophils (%) (Auto) 3 % (0-3) Basophils (%) (Auto) 1 % (0-3) Neutrophils # (Auto) 5.3 x10^3uL (1.8-7.7) Lymphocytes # (Auto) 3.6 x10^3/uL (1.0-4.8) Monocytes # (Auto) 0.9 x10^3/uL (0.0-1.1) Eosinophils # (Auto) 0.3 x10^3/uL (0.0-0.7) Basophils # (Auto) 0.1 x10^3/uL (0.0-0.2) Sodium Level 144 mmol/L (136-145) Potassium Level 3.4 mmol/L (3.5-5.1) Chloride Level 106 mmol/L (98-107) Carbon Dioxide Level 33 mmol/L (21-32) Anion Gap 5 (6-14) Blood Urea Nitrogen 16 mg/dL (7-20) Creatinine 0.5 mg/dL (0.6-1.0) Estimated GFR (Cockcroft-Gault) 123.1 Glucose Level 83 mg/dL (70-99) Calcium Level 9.8 mg/dL (8.5-10.1) Microbiology 03/27/17 Urine Culture - Final, Complete 03/27/17 Urine Culture Result 1 ([facility]) - Final, Complete 03/27/17 Urine Culture Result 2 ([facility]) - Final, Complete 03/27/17 Antimicrobic Susceptibility - Final, Complete Medications Current Medications Alprazolam (Xanax) 1 mg PRN Q8HRS PRN PO ANXIETY Last administered on 22:27; Start 03/27/17 at 18:45 Amlodipine Besylate (Norvasc) 10 mg DAILY PO Last administered on 04/04/17 08 :02; Start 03/28/17 at 09:00 Atorvastatin Calcium (Lipitor) 10 mg QHS PO Last administered on 04/03/17 21: 14; Start 03/28/17 at 21:00 Acetaminophen/ Hydrocodone Bitart (Lortab 7.5/325) 1 tab PRN Q6HRS PRN PO PAIN Last administered on 04/01/17 22:27; Start 03/27/17 at 18:45 Pyridostigmine [place] (Mestinon) 60 mg QID PO Last administered on 04/04/17 08:02; Start 03/27/17 at 21:00 Bupropion HCl (Wellbutrin Xl) 300 mg DAILY PO Last administered on 04/04/17 08:00; Start 03/28/17 at 09:00 Vitamin D (Vitamin D3) 1,000 unit DAILY PO Last administered on 04/04/17 08: 02; Start 03/28/17 at 09:00 Duloxetine HCl (Cymbalta) 120 mg DAILY PO Last administered on 04/04/17 08:00 ; Start 03/28/17 at 09:00 Gabapentin (Neurontin) 300 mg TID PO Last administered on 04/04/17 08:01; Start 03/27/17 at 21:00 Losartan Potassium (Cozaar) 100 mg DAILY PO Last administered on 04/04/17 08: 01; Start 03/28/17 at 09:00 Acetaminophen (Tylenol) 650 mg PRN Q6HRS PRN PO FEVER; Start 03/27/17 at 18:45 Ondansetron HCl (Zofran) 4 mg PRN Q6HRS PRN IV NAUSEA/VOMITING Last administered on 03/28/17 19:58; Start 03/27/17 at 18:45 Morphine Sulfate 2 mg PRN Q2HR PRN IV PAIN; Start 03/27/17 at 18:45 Tramadol HCl (Ultram) 50 mg PRN Q6HRS PRN PO PAIN Last administered on 19:59; Start 03/27/17 at 18:45 Hydralazine HCl (Apresoline Inj) 10 mg PRN Q4HRS PRN IVP ELEVATED BP, SEE COMMENTS; Start 03/27/17 at 18:45 Docusate Sodium (Colace) 100 mg PRN DAILY PRN PO CONSTIPATION; Start 03/27/17 at 18:45 Enoxaparin Sodium (Lovenox 40mg Syringe) 40 mg Q24H SQ Last administered on 21:14; Start 03/27/17 at 21:00 Ceftriaxone Sodium 50 ml @ 100 mls/hr 1X ONCE IV Last administered on 19:32; Start 03/27/17 at 19:30; Stop 03/27/17 at 19:59; Status DC Potassium Chloride (Klor-Con) 40 meq 1X ONCE PO Last administered on 13:31; Start 03/28/17 at 12:00; Stop 03/28/17 at 12:01; Status DC Albumin Human 500 ml @ 0 mls/hr 1X ONCE IV Last administered on 03/28/17 16: 54; Start 03/28/17 at 12:45; Stop 03/28/17 at 12:54; Status DC Albumin Human 500 ml @ 125 mls/hr 1X ONCE IV Last administered on 03/28/17 16:54; Start 03/28/17 at 12:45; Stop 03/28/17 at 16:44; Status DC Albumin Human 500 ml @ 0 mls/hr 1X ONCE IV ; Start 03/28/17 at 12:45; Stop at 12:54; Status DC Albumin Human 500 ml @ 125 mls/hr 1X ONCE IV Last administered on 03/28/17 16:55; Start 03/28/17 at 12:45; Stop 03/28/17 at 16:44; Status DC Albumin Human 500 ml @ 0 mls/hr 1X ONCE IV Last administered on 03/28/17 16: 55; Start 03/28/17 at 12:45; Stop 03/28/17 at 12:54; Status DC Heparin Sodium (Porcine) (Heparin Sodium) 10,000 unit STK-MED ONCE .ROUTE ; Start 03/28/17 at 15:03; Stop 03/28/17 at 15:04; Status DC Lidocaine/ Epinephrine (Xylocaine 1%-Epi 1:100,000) 20 ml STK-MED ONCE .ROUTE ; Start 03/28/17 at 15:03; Stop 03/28/17 at 15:04; Status DC Heparin Sodium/ Sodium Chloride 500 ml @ As Directed STK-MED ONCE .ROUTE ; Start 03/28/17 at 15:03; Stop 03/28/17 at 15:04; Status DC Fentanyl Citrate (Fentanyl 2ml Vial) 100 mcg STK-MED ONCE .ROUTE ; Start at 15:29; Stop 03/28/17 at 15:30; Status DC Midazolam HCl (Versed) 2 mg STK-MED ONCE .ROUTE ; Start 03/28/17 at 15:29; Stop 03/28/17 at 15:30; Status DC Heparin Sodium/ Sodium Chloride 1,000 unit 1X ONCE IART Last administered on 03/28/17 16:14; Start 03/28/17 at 15:45; Stop 03/28/17 at 15:46; Status DC Midazolam HCl (Versed) 2 mg 1X ONCE IV Last administered on 03/28/17 16:15; Start 03/28/17 at 15:45; Stop 03/28/17 at 15:46; Status DC Fentanyl Citrate (Fentanyl 2ml Vial) 100 mcg 1X ONCE IV Last administered on 03/28/17 16:14; Start 03/28/17 at 15:45; Stop 03/28/17 at 15:46; Status DC Heparin Sodium (Porcine) (Heparin Sodium) 4,000 unit 1X ONCE IV Last administered on 03/28/17 16:16; Start 03/28/17 at 15:45; Stop 03/28/17 at 15 :46; Status DC Lidocaine/ Epinephrine (Xylocaine 1%-Epi 1:100,000) 20 ml 1X ONCE INJ Last administered on 03/28/17 16:15; Start 03/28/17 at 15:45; Stop 03/28/17 at 15 :46; Status DC Ceftriaxone Sodium 1 gm/ Dextrose 50 ml @ 100 mls/hr Q24H IV Last administered on 03/28/17 19:58; Start 03/28/17 at 19:00; Stop 03/29/17 at 04 :16; Status DC Prednisone (Prednisone) 10 mg DAILY PO Last administered on 04/04/17 08:02; Start 03/28/17 at 18:00 Ceftriaxone Sodium 1 gm/ Sodium Chloride 50 ml @ 100 mls/hr Q24H IV ; Start at 04:16; Stop 03/29/17 at 04:17; Status DC Ceftriaxone Sodium 1 gm/ Sodium Chloride 50 ml @ 100 mls/hr Q24H IV Last administered on 03/31/17 18:08; Start 03/29/17 at 19:00; Stop 03/31/17 at 23 :00; Status DC Heparin Sodium (Porcine) (Heparin Sodium) 2,000 unit 1X ONCE INT CAT Last administered on 03/29/17 16:30; Start 03/29/17 at 15:15; Stop 03/29/17 at 15 :24; Status DC Sodium Chloride 1,000 ml @ 1,000 mls/hr Q1H PRN IV hypotension Last administered on 03/29/17 16:30; Start 03/29/17 at 15:12; Stop 03/29/17 at 21 :11; Status DC Diphenhydramine HCl (Benadryl) 25 mg 1X PRN PRN IV ITCHING; Start 03/29/17 at 15:15; Stop 03/30/17 at 15:14; Status DC Diphenhydramine HCl (Benadryl) 25 mg 1X PRN PRN IV ITCHING; Start 03/29/17 at 15:15; Stop 03/30/17 at 15:14; Status DC Lactobacillus Rhamnosus (Culturelle) 1 cap BID PO Last administered on 08:02; Start 03/29/17 at 21:00 Albumin Human 2,000 ml @ 0 mls/hr 1X ONCE IV Last administered on 03/29/17 16:32; Start 03/29/17 at 16:00; Stop 03/29/17 at 16:01; Status DC Albumin Human 2,000 ml @ 0 mls/hr 1X ONCE IV ; Start 03/29/17 at 16:00; Stop 03/29/17 at 16:01; Status Cancel Potassium Chloride/Sodium Chloride 1,000 ml @ 75 mls/hr 1X ONCE IV Last administered on 03/30/17 15:27; Start 03/30/17 at 10:15; Stop 03/30/17 at 23 :34; Status DC Albumin Human 500 ml @ 125 mls/hr Q1H IV Last administered on 03/31/17 11:38 ; Start 03/30/17 at 10:15; Stop 03/30/17 at 14:14; Status DC Heparin Sodium (Porcine) (Heparin Sodium) 5,000 unit 1X ONCE IV Last administered on 03/30/17 14:30; Start 03/30/17 at 14:30; Stop 03/30/17 at 14 :39; Status DC Heparin Sodium (Porcine) (Heparin Sodium) 10,000 unit STK-MED ONCE .ROUTE ; Start 03/30/17 at 14:39; Stop 03/30/17 at 14:40; Status DC Heparin Sodium (Porcine) (Heparin Sodium) 2,000 unit 1X ONCE IV Last administered on 03/31/17 11:36; Start 03/31/17 at 09:30; Stop 03/31/17 at 09 :37; Status DC Potassium Acetate 10 meq/Sodium Chloride 1,005 ml @ 0 mls/hr Q0M ONCE IV Last administered on 03/31/17 11:38; Start 03/31/17 at 10:00; Stop 03/31/17 at 10 :01; Status DC Albumin Human 1,500 ml @ 0 mls/hr 1X ONCE IV ; Start 03/31/17 at 10:00; Stop 03/31/17 at 10:01; Status DC Cefpodoxime Proxetil (Vantin) 200 mg BID PO Last administered on 04/04/17 08: 03; Start 04/01/17 at 09:00 Heparin Sodium (Porcine) (Heparin Sodium) 2,000 unit 1X ONCE IV Last administered on 04/01/17 08:21; Start 04/01/17 at 07:45; Stop 04/01/17 at 07 :47; Status DC Albumin Human 1,500 ml @ 0 mls/hr 1X ONCE IV Last administered on 04/01/17 08:23; Start 04/01/17 at 08:30; Stop 04/01/17 at 08:31; Status DC Potassium Chloride/Sodium Chloride 1,000 ml @ 0 mls/hr 1X ONCE IV Last administered on 04/01/17 08:22; Start 04/01/17 at 08:30; Stop 04/01/17 at 08 :31; Status DC Magnesium Sulfate/ Dextrose 100 ml @ 100 mls/hr 1X ONCE IV Last administered on 04/01/17 15:03; Start 04/01/17 at 14:15; Stop 04/01/17 at 15:14; Status DC Potassium Chloride (Klor-Con) 40 meq 1X ONCE PO Last administered on 15:02; Start 04/01/17 at 14:30; Stop 04/01/17 at 14:31; Status DC Potassium Chloride 100 ml @ 100 mls/hr Q1H IV Last administered on 04/03/17 13:42; Start 04/03/17 at 08:30; Stop 04/03/17 at 12:29; Status DC Potassium Chloride (Klor-Con) 30 meq 1X ONCE PO Last administered on 21:14; Start 04/03/17 at 18:15; Stop 04/03/17 at 18:16; Status DC Potassium Chloride (Klor-Con) 40 meq 1X ONCE PO Last administered on 08:01; Start 04/04/17 at 07:30; Stop 04/04/17 at 07:31; Status DC Active Scripts Active Hydrocodone-Apap 7.5-325 (Hydrocodone Bit/Acetaminophen) 1 Each Tablet 1 Tab PO PRN Q6HRS PRN Amlodipine Besylate 10 Mg Tablet 10 Mg PO DAILY Reported Mestinon (Pyridostigmine [place]) 60 Mg Tablet 60 Mg PO QID Cymbalta (Duloxetine Hcl) 60 Mg Capsule.dr 2 Cap PO DAILY Gabapentin 300 Mg Capsule 300 Mg PO TID Xanax (Alprazolam) 0.5 Mg Tablet 1 Mg PO PRN TID PRN Vitamin D-3 (Cholecalciferol (Vitamin D3)) 2,000 Unit Tablet 1,000 Unit PO DAILY06 Atorvastatin Calcium 10 Mg Tablet 10 Mg PO DAILY Losartan Potassium 100 Mg Tablet 100 Mg PO DAILY Bupropion Xl (Bupropion Hcl) 300 Mg Tab.er.24h 300 Mg PO DAILY Vitals/I & O Vital Sign - Last 24 Hours 04/03/17 04/03/17 04/03/17 04/03/17 11:00 15:00 19:00 20:00 Temp 97.8 98.0 98.0 97.8 98.0 98.0 Pulse 69 79 75 Resp 18 19 18 B/P (MAP) 128/74 (92) 118/55 (76) 126/54 (78) Pulse Ox 93 94 97 O2 Delivery Room Air Room Air 04/03/17 04/04/17 04/04/17 04/04/17 23:00 03:00 07:00 08:00 Temp 97.9 97.9 98.2 97.9 97.9 98.2 Pulse 63 65 73 Resp 18 18 16 B/P (MAP) 124/58 (80) 104/62 (76) 164/66 (98) Pulse Ox 95 96 99 O2 Delivery BiPAP/CPAP Room Air Room Air Room Air 04/04/17 04/04/17 08:01 08:02 Pulse 73 73 B/P (MAP) 164/66 164/66 KALLI FISHER MD Apr 04, 2017 10:19
[2017-04-04 10:58] VITALS: BP 130/63
--- NOTE | 2017-04-04 12:49 | PDOC ---
PROGRESS NOTES Chief Complaint Chief Complaint Extremity weakness with myasthenia gravis 1. MG 2. Hx hip dislocation (artificial joint) 3. CAD 4. HTN 5. HLD 6. Hypokalemia 7. Hx pericarditis 8. ZENON 9. B12 deficiency 10. Peripheral neuropathy 11. Morbid obesity 12. R subconjunctival hemorrhage 14. external stressors: in rehab, daughter attempted suicide. History of Present Illness History of Present Illness Pt seen at bedside after completing daily PT/OT. Walking with assistance of walker, in NAD. R eyelid droop continues to improve, EOMI b/l. Seems slightly anxious re: daughter in OP psych facility and in rehab facility; expresses desire to dc as soon as she can. DC probable this afternoon with home health. Vitals Vitals Vital Signs Date Time Temp Pulse Resp B/P (MAP) Pulse Ox O2 Delivery O2 Flow Rate FiO2 04/04/17 10:58 98.3 84 18 130/63 (85) 96 Room Air 98.3 Physical Exam General: Alert, Oriented X3, Cooperative, No acute distress Heart: Regular rate, Normal S1, Normal S2 Lungs: Clear Abdomen: Normal bowel sounds, No tenderness Extremities: No clubbing, No edema Skin: No rashes, No significant lesion Labs LABS Laboratory Tests Test 04/04/17 03:30 White Blood Count 10.1 x10^3/uL (4.0-11.0) Red Blood Count 4.55 x10^6/uL (3.50-5.40) Hemoglobin 11.7 g/dL (12.0-15.5) Hematocrit 36.8 % (36.0-47.0) Mean Corpuscular Volume 81 fL (79-100) Mean Corpuscular Hemoglobin 26 pg (25-35) Mean Corpuscular Hemoglobin Concent 32 g/dL (31-37) Red Cell Distribution Width 20.0 % (11.5-14.5) Platelet Count 303 x10^3/uL (140-400) Neutrophils (%) (Auto) 52 % (31-73) Lymphocytes (%) (Auto) 35 % (24-48) Monocytes (%) (Auto) 9 % (0-9) Eosinophils (%) (Auto) 3 % (0-3) Basophils (%) (Auto) 1 % (0-3) Neutrophils # (Auto) 5.3 x10^3uL (1.8-7.7) Lymphocytes # (Auto) 3.6 x10^3/uL (1.0-4.8) Monocytes # (Auto) 0.9 x10^3/uL (0.0-1.1) Eosinophils # (Auto) 0.3 x10^3/uL (0.0-0.7) Basophils # (Auto) 0.1 x10^3/uL (0.0-0.2) Sodium Level 144 mmol/L (136-145) Potassium Level 3.4 mmol/L (3.5-5.1) Chloride Level 106 mmol/L (98-107) Carbon Dioxide Level 33 mmol/L (21-32) Anion Gap 5 (6-14) Blood Urea Nitrogen 16 mg/dL (7-20) Creatinine 0.5 mg/dL (0.6-1.0) Estimated GFR (Cockcroft-Gault) 123.1 Glucose Level 83 mg/dL (70-99) Calcium Level 9.8 mg/dL (8.5-10.1) Review of Systems Review of Systems Patient AOCx3, in NAD. EOMI b/l, no facial droop, no slurred speech. Denies CP. Denies SOB. Ambulating w/ assistance (walker). Assessment and Plan Assessmemt and Plan Problems Medical Problems: (1) Hyperglycemia Status: Acute (2) Urinary tract infection Status: Acute Extremity weakness with myasthenia gravis 1. MG 2. Hx hip dislocation (artificial joint) 3. CAD 4. HTN 5. HLD 6. Hypokalemia 7. Hx pericarditis 8. ZENON 9. B12 deficiency 10. Peripheral neuropathy 11. Morbid obesity 12. R subconjunctival hemorrhage 14. external stressors: in rehab, daughter attempted suicide. Plan: DC w/ home health Continue Mestinon as rx'ed Continue prednisone as rx'ed Potassium 40mg PO given this AM F/U with neuro in 1 month Problems: Comment Review of Relevant I have reviewed the following items antonio (where applicable) has been applied. Labs Laboratory Tests Test 04/03/17 03:21 04/04/17 03:30 White Blood Count 9.0 x10^3/uL (4.0-11.0) 10.1 x10^3/uL (4.0-11.0) Red Blood Count 4.67 x10^6/uL (3.50-5.40) 4.55 x10^6/uL (3.50-5.40) Hemoglobin 12.0 g/dL (12.0-15.5) 11.7 g/dL (12.0-15.5) Hematocrit 37.7 % (36.0-47.0) 36.8 % (36.0-47.0) Mean Corpuscular Volume 81 fL (79-100) 81 fL (79-100) Mean Corpuscular Hemoglobin 26 pg (25-35) 26 pg (25-35) Mean Corpuscular Hemoglobin Concent 32 g/dL (31-37) 32 g/dL (31-37) Red Cell Distribution Width 19.7 % (11.5-14.5) 20.0 % (11.5-14.5) Platelet Count 263 x10^3/uL (140-400) 303 x10^3/uL (140-400) Neutrophils (%) (Auto) 54 % (31-73) 52 % (31-73) Lymphocytes (%) (Auto) 34 % (24-48) 35 % (24-48) Monocytes (%) (Auto) 8 % (0-9) 9 % (0-9) Eosinophils (%) (Auto) 3 % (0-3) 3 % (0-3) Basophils (%) (Auto) 1 % (0-3) 1 % (0-3) Neutrophils # (Auto) 4.9 x10^3uL (1.8-7.7) 5.3 x10^3uL (1.8-7.7) Lymphocytes # (Auto) 3.1 x10^3/uL (1.0-4.8) 3.6 x10^3/uL (1.0-4.8) Monocytes # (Auto) 0.7 x10^3/uL (0.0-1.1) 0.9 x10^3/uL (0.0-1.1) Eosinophils # (Auto) 0.3 x10^3/uL (0.0-0.7) 0.3 x10^3/uL (0.0-0.7) Basophils # (Auto) 0.1 x10^3/uL (0.0-0.2) 0.1 x10^3/uL (0.0-0.2) Sodium Level 144 mmol/L (136-145) 144 mmol/L (136-145) Potassium Level 3.3 mmol/L (3.5-5.1) 3.4 mmol/L (3.5-5.1) Chloride Level 107 mmol/L (98-107) 106 mmol/L (98-107) Carbon Dioxide Level 33 mmol/L (21-32) 33 mmol/L (21-32) Anion Gap 4 (6-14) 5 (6-14) Blood Urea Nitrogen 13 mg/dL (7-20) 16 mg/dL (7-20) Creatinine 0.6 mg/dL (0.6-1.0) 0.5 mg/dL (0.6-1.0) Estimated GFR (Cockcroft-Gault) 99.7 123.1 Glucose Level 83 mg/dL (70-99) 83 mg/dL (70-99) Calcium Level 9.1 mg/dL (8.5-10.1) 9.8 mg/dL (8.5-10.1) Laboratory Tests Test 04/04/17 03:30 White Blood Count 10.1 x10^3/uL (4.0-11.0) Red Blood Count 4.55 x10^6/uL (3.50-5.40) Hemoglobin 11.7 g/dL (12.0-15.5) Hematocrit 36.8 % (36.0-47.0) Mean Corpuscular Volume 81 fL (79-100) Mean Corpuscular Hemoglobin 26 pg (25-35) Mean Corpuscular Hemoglobin Concent 32 g/dL (31-37) Red Cell Distribution Width 20.0 % (11.5-14.5) Platelet Count 303 x10^3/uL (140-400) Neutrophils (%) (Auto) 52 % (31-73) Lymphocytes (%) (Auto) 35 % (24-48) Monocytes (%) (Auto) 9 % (0-9) Eosinophils (%) (Auto) 3 % (0-3) Basophils (%) (Auto) 1 % (0-3) Neutrophils # (Auto) 5.3 x10^3uL (1.8-7.7) Lymphocytes # (Auto) 3.6 x10^3/uL (1.0-4.8) Monocytes # (Auto) 0.9 x10^3/uL (0.0-1.1) Eosinophils # (Auto) 0.3 x10^3/uL (0.0-0.7) Basophils # (Auto) 0.1 x10^3/uL (0.0-0.2) Sodium Level 144 mmol/L (136-145) Potassium Level 3.4 mmol/L (3.5-5.1) Chloride Level 106 mmol/L (98-107) Carbon Dioxide Level 33 mmol/L (21-32) Anion Gap 5 (6-14) Blood Urea Nitrogen 16 mg/dL (7-20) Creatinine 0.5 mg/dL (0.6-1.0) Estimated GFR (Cockcroft-Gault) 123.1 Glucose Level 83 mg/dL (70-99) Calcium Level 9.8 mg/dL (8.5-10.1) Microbiology 03/27/17 Urine Culture - Final, Complete 03/27/17 Urine Culture Result 1 (LUCHO) - Final, Complete 03/27/17 Urine Culture Result 2 (LUCHO) - Final, Complete 03/27/17 Antimicrobic Susceptibility - Final, Complete Medications Current Medications Alprazolam (Xanax) 1 mg PRN Q8HRS PRN PO ANXIETY Last administered on 22:27; Start 03/27/17 at 18:45 Amlodipine Besylate (Norvasc) 10 mg DAILY PO Last administered on 04/04/17 08 :02; Start 03/28/17 at 09:00 Atorvastatin Calcium (Lipitor) 10 mg QHS PO Last administered on 04/03/17 21: 14; Start 03/28/17 at 21:00 Acetaminophen/ Hydrocodone Bitart (Lortab 7.5/325) 1 tab PRN Q6HRS PRN PO PAIN Last administered on 04/01/17 22:27; Start 03/27/17 at 18:45 Pyridostigmine [place] (Mestinon) 60 mg QID PO Last administered on 04/04/17 08:02; Start 03/27/17 at 21:00 Bupropion HCl (Wellbutrin Xl) 300 mg DAILY PO Last administered on 04/04/17 08:00; Start 03/28/17 at 09:00 Vitamin D (Vitamin D3) 1,000 unit DAILY PO Last administered on 04/04/17 08: 02; Start 03/28/17 at 09:00 Duloxetine HCl (Cymbalta) 120 mg DAILY PO Last administered on 04/04/17 08:00 ; Start 03/28/17 at 09:00 Gabapentin (Neurontin) 300 mg TID PO Last administered on 04/04/17 08:01; Start 03/27/17 at 21:00 Losartan Potassium (Cozaar) 100 mg DAILY PO Last administered on 04/04/17 08: 01; Start 03/28/17 at 09:00 Acetaminophen (Tylenol) 650 mg PRN Q6HRS PRN PO FEVER; Start 03/27/17 at 18:45 Ondansetron HCl (Zofran) 4 mg PRN Q6HRS PRN IV NAUSEA/VOMITING Last administered on 03/28/17 19:58; Start 03/27/17 at 18:45 Morphine Sulfate 2 mg PRN Q2HR PRN IV PAIN; Start 03/27/17 at 18:45 Tramadol HCl (Ultram) 50 mg PRN Q6HRS PRN PO PAIN Last administered on 19:59; Start 03/27/17 at 18:45 Hydralazine HCl (Apresoline Inj) 10 mg PRN Q4HRS PRN IVP ELEVATED BP, SEE COMMENTS; Start 03/27/17 at 18:45 Docusate Sodium (Colace) 100 mg PRN DAILY PRN PO CONSTIPATION; Start 03/27/17 at 18:45 Enoxaparin Sodium (Lovenox 40mg Syringe) 40 mg Q24H SQ Last administered on 21:14; Start 03/27/17 at 21:00 Ceftriaxone Sodium 50 ml @ 100 mls/hr 1X ONCE IV Last administered on 19:32; Start 03/27/17 at 19:30; Stop 03/27/17 at 19:59; Status DC Potassium Chloride (Klor-Con) 40 meq 1X ONCE PO Last administered on 13:31; Start 03/28/17 at 12:00; Stop 03/28/17 at 12:01; Status DC Albumin Human 500 ml @ 0 mls/hr 1X ONCE IV Last administered on 03/28/17 16: 54; Start 03/28/17 at 12:45; Stop 03/28/17 at 12:54; Status DC Albumin Human 500 ml @ 125 mls/hr 1X ONCE IV Last administered on 03/28/17 16:54; Start 03/28/17 at 12:45; Stop 03/28/17 at 16:44; Status DC Albumin Human 500 ml @ 0 mls/hr 1X ONCE IV ; Start 03/28/17 at 12:45; Stop at 12:54; Status DC Albumin Human 500 ml @ 125 mls/hr 1X ONCE IV Last administered on 03/28/17 16:55; Start 03/28/17 at 12:45; Stop 03/28/17 at 16:44; Status DC Albumin Human 500 ml @ 0 mls/hr 1X ONCE IV Last administered on 03/28/17 16: 55; Start 03/28/17 at 12:45; Stop 03/28/17 at 12:54; Status DC Heparin Sodium (Porcine) (Heparin Sodium) 10,000 unit STK-MED ONCE .ROUTE ; Start 03/28/17 at 15:03; Stop 03/28/17 at 15:04; Status DC Lidocaine/ Epinephrine (Xylocaine 1%-Epi 1:100,000) 20 ml STK-MED ONCE .ROUTE ; Start 03/28/17 at 15:03; Stop 03/28/17 at 15:04; Status DC Heparin Sodium/ Sodium Chloride 500 ml @ As Directed STK-MED ONCE .ROUTE ; Start 03/28/17 at 15:03; Stop 03/28/17 at 15:04; Status DC Fentanyl Citrate (Fentanyl 2ml Vial) 100 mcg STK-MED ONCE .ROUTE ; Start at 15:29; Stop 03/28/17 at 15:30; Status DC Midazolam HCl (Versed) 2 mg STK-MED ONCE .ROUTE ; Start 03/28/17 at 15:29; Stop 03/28/17 at 15:30; Status DC Heparin Sodium/ Sodium Chloride 1,000 unit 1X ONCE IART Last administered on 10/24/17at 16:14; Start 03/28/17 at 15:45; Stop 03/28/17 at 15:46; Status DC Midazolam HCl (Versed) 2 mg 1X ONCE IV Last administered on 03/28/17 16:15; Start 03/28/17 at 15:45; Stop 03/28/17 at 15:46; Status DC Fentanyl Citrate (Fentanyl 2ml Vial) 100 mcg 1X ONCE IV Last administered on 03/28/17 16:14; Start 03/28/17 at 15:45; Stop 03/28/17 at 15:46; Status DC Heparin Sodium (Porcine) (Heparin Sodium) 4,000 unit 1X ONCE IV Last administered on 03/28/17 16:16; Start 03/28/17 at 15:45; Stop 03/28/17 at 15 :46; Status DC Lidocaine/ Epinephrine (Xylocaine 1%-Epi 1:100,000) 20 ml 1X ONCE INJ Last administered on 03/28/17 16:15; Start 03/28/17 at 15:45; Stop 03/28/17 at 15 :46; Status DC Ceftriaxone Sodium 1 gm/ Dextrose 50 ml @ 100 mls/hr Q24H IV Last administered on 03/28/17 19:58; Start 03/28/17 at 19:00; Stop 03/29/17 at 04 :16; Status DC Prednisone (Prednisone) 10 mg DAILY PO Last administered on 04/04/17 08:02; Start 03/28/17 at 18:00 Ceftriaxone Sodium 1 gm/ Sodium Chloride 50 ml @ 100 mls/hr Q24H IV ; Start at 04:16; Stop 03/29/17 at 04:17; Status DC Ceftriaxone Sodium 1 gm/ Sodium Chloride 50 ml @ 100 mls/hr Q24H IV Last administered on 03/31/17 18:08; Start 03/29/17 at 19:00; Stop 03/31/17 at 23 :00; Status DC Heparin Sodium (Porcine) (Heparin Sodium) 2,000 unit 1X ONCE INT CAT Last administered on 03/29/17 16:30; Start 03/29/17 at 15:15; Stop 03/29/17 at 15 :24; Status DC Sodium Chloride 1,000 ml @ 1,000 mls/hr Q1H PRN IV hypotension Last administered on 03/29/17 16:30; Start 03/29/17 at 15:12; Stop 03/29/17 at 21 :11; Status DC Diphenhydramine HCl (Benadryl) 25 mg 1X PRN PRN IV ITCHING; Start 03/29/17 at 15:15; Stop 03/30/17 at 15:14; Status DC Diphenhydramine HCl (Benadryl) 25 mg 1X PRN PRN IV ITCHING; Start 03/29/17 at 15:15; Stop 03/30/17 at 15:14; Status DC Lactobacillus Rhamnosus (Culturelle) 1 cap BID PO Last administered on 08:02; Start 03/29/17 at 21:00 Albumin Human 2,000 ml @ 0 mls/hr 1X ONCE IV Last administered on 03/29/17 16:32; Start 03/29/17 at 16:00; Stop 03/29/17 at 16:01; Status DC Albumin Human 2,000 ml @ 0 mls/hr 1X ONCE IV ; Start 03/29/17 at 16:00; Stop 03/29/17 at 16:01; Status Cancel Potassium Chloride/Sodium Chloride 1,000 ml @ 75 mls/hr 1X ONCE IV Last administered on 03/30/17 15:27; Start 03/30/17 at 10:15; Stop 03/30/17 at 23 :34; Status DC Albumin Human 500 ml @ 125 mls/hr Q1H IV Last administered on 03/31/17 11:38 ; Start 03/30/17 at 10:15; Stop 03/30/17 at 14:14; Status DC Heparin Sodium (Porcine) (Heparin Sodium) 5,000 unit 1X ONCE IV Last administered on 03/30/17 14:30; Start 03/30/17 at 14:30; Stop 03/30/17 at 14 :39; Status DC Heparin Sodium (Porcine) (Heparin Sodium) 10,000 unit STK-MED ONCE .ROUTE ; Start 03/30/17 at 14:39; Stop 03/30/17 at 14:40; Status DC Heparin Sodium (Porcine) (Heparin Sodium) 2,000 unit 1X ONCE IV Last administered on 03/31/17 11:36; Start 03/31/17 at 09:30; Stop 03/31/17 at 09 :37; Status DC Potassium Acetate 10 meq/Sodium Chloride 1,005 ml @ 0 mls/hr Q0M ONCE IV Last administered on 03/31/17 11:38; Start 03/31/17 at 10:00; Stop 03/31/17 at 10 :01; Status DC Albumin Human 1,500 ml @ 0 mls/hr 1X ONCE IV ; Start 03/31/17 at 10:00; Stop 03/31/17 at 10:01; Status DC Cefpodoxime Proxetil (Vantin) 200 mg BID PO Last administered on 04/04/17 08: 03; Start 04/01/17 at 09:00 Heparin Sodium (Porcine) (Heparin Sodium) 2,000 unit 1X ONCE IV Last administered on 04/01/17 08:21; Start 04/01/17 at 07:45; Stop 04/01/17 at 07 :47; Status DC Albumin Human 1,500 ml @ 0 mls/hr 1X ONCE IV Last administered on 04/01/17 08:23; Start 04/01/17 at 08:30; Stop 04/01/17 at 08:31; Status DC Potassium Chloride/Sodium Chloride 1,000 ml @ 0 mls/hr 1X ONCE IV Last administered on 04/01/17 08:22; Start 04/01/17 at 08:30; Stop 04/01/17 at 08 :31; Status DC Magnesium Sulfate/ Dextrose 100 ml @ 100 mls/hr 1X ONCE IV Last administered on 04/01/17 15:03; Start 04/01/17 at 14:15; Stop 04/01/17 at 15:14; Status DC Potassium Chloride (Klor-Con) 40 meq 1X ONCE PO Last administered on 15:02; Start 04/01/17 at 14:30; Stop 04/01/17 at 14:31; Status DC Potassium Chloride 100 ml @ 100 mls/hr Q1H IV Last administered on 04/03/17 13:42; Start 04/03/17 at 08:30; Stop 04/03/17 at 12:29; Status DC Potassium Chloride (Klor-Con) 30 meq 1X ONCE PO Last administered on 21:14; Start 04/03/17 at 18:15; Stop 04/03/17 at 18:16; Status DC Potassium Chloride (Klor-Con) 40 meq 1X ONCE PO Last administered on t 08:01; Start 04/04/17 at 07:30; Stop 04/04/17 at 07:31; Status DC Active Scripts Active Hydrocodone-Apap 7.5-325 (Hydrocodone Bit/Acetaminophen) 1 Each Tablet 1 Tab PO PRN Q6HRS PRN Amlodipine Besylate 10 Mg Tablet 10 Mg PO DAILY Reported Mestinon (Pyridostigmine [place]) 60 Mg Tablet 60 Mg PO QID Cymbalta (Duloxetine Hcl) 60 Mg Capsule.dr 2 Cap PO DAILY Gabapentin 300 Mg Capsule 300 Mg PO TID Xanax (Alprazolam) 0.5 Mg Tablet 1 Mg PO PRN TID PRN Vitamin D-3 (Cholecalciferol (Vitamin D3)) 2,000 Unit Tablet 1,000 Unit PO DAILY06 Atorvastatin Calcium 10 Mg Tablet 10 Mg PO DAILY Losartan Potassium 100 Mg Tablet 100 Mg PO DAILY Bupropion Xl (Bupropion Hcl) 300 Mg Tab.er.24h 300 Mg PO DAILY Vitals/I & O Vital Sign - Last 24 Hours 04/03/17 04/03/17 04/03/17 04/03/17 15:00 19:00 20:00 23:00 Temp 98.0 98.0 97.9 98.0 98.0 97.9 Pulse 79 75 63 Resp 19 18 18 B/P (MAP) 118/55 (76) 126/54 (78) 124/58 (80) Pulse Ox 94 97 95 O2 Delivery Room Air Room Air BiPAP/CPAP 04/04/17 04/04/17 04/04/17 04/04/17 03:00 07:00 08:00 08:01 Temp 97.9 98.2 97.9 98.2 Pulse 65 73 73 Resp 18 16 B/P (MAP) 104/62 (76) 164/66 (98) 164/66 Pulse Ox 96 99 O2 Delivery Room Air Room Air Room Air 04/04/17 04/04/17 08:02 10:58 Temp 98.3 98.3 Pulse 73 84 Resp 18 B/P (MAP) 164/66 130/63 (85) Pulse Ox 96 O2 Delivery Room Air UNA AGUILAR III DO Apr 04, 2017 12:49
[2017-04-04 15:00] VITALS: BP 120/61
== END 2017-04-04 17:13 | disposition home health service (06) | DRG 57 ==
LOC: ER 16:33 → 2 SOUTH 18:30 → 6 SOUTH 03-30 10:10
PROVIDERS: ADMIT Internal Medicine; ATTEND Internal Medicine
PROC: 6A551Z3 Pheresis of Plasma, Multiple (ICD-10-PCS; principal; 2017-03-28)
PROC: 02H633Z Insertion of Infusion Device into Right Atrium, Percutaneous Approach (ICD-10-PCS; 2017-03-28)
PROC: 5A09357 Assistance with Respiratory Ventilation, Less than 24 Consecutive Hours, Continuous Positive Airway Pressure (ICD-10-PCS; 2017-03-30)
PROC: 0JH63XZ Insertion of Tunneled Vascular Access Device into Chest Subcutaneous Tissue and Fascia, Percutaneous Approach (ICD-10-PCS; 2017-04-01)
DX: G70.01 Myasthenia gravis with (acute) exacerbation (principal); E11.42 Type 2 diabetes mellitus with diabetic polyneuropathy; I31.9 Disease of pericardium, unspecified; E11.65 Type 2 diabetes mellitus with hyperglycemia; E66.01 Morbid (severe) obesity due to excess calories; N39.0 Urinary tract infection, site not specified; Z68.36 Body mass index [BMI] 36.0-36.9, adult; E53.8 Deficiency of other specified B group vitamins; E78.5 Hyperlipidemia, unspecified; E87.6 Hypokalemia; G47.33 Obstructive sleep apnea (adult) (pediatric); Z79.4 Long term (current) use of insulin; G70.00 Myasthenia gravis without (acute) exacerbation; H11.31 Conjunctival hemorrhage, right eye; I10 Essential (primary) hypertension; I25.10 Atherosclerotic heart disease of native coronary artery without angina pectoris; J45.909 Unspecified asthma, uncomplicated; M19.90 Unspecified osteoarthritis, unspecified site; F32.9 Major depressive disorder, single episode, unspecified; Z96.649 Presence of unspecified artificial hip joint; R63.3 Feeding difficulties; Z96.612 Presence of left artificial shoulder joint; Z82.49 Family history of ischemic heart disease and other diseases of the circulatory system; Z85.43 Personal history of malignant neoplasm of ovary; Z87.440 Personal history of urinary (tract) infections; Z87.442 Personal history of urinary calculi; Z88.0 Allergy status to penicillin
CPT/HCPCS: 36415; 36558; 71010; 76937; 77001; 80048; 80053; 81001; 82962; 83735; 83880; 84100; 84443; 85025; 85384; 85610; 85730; 86706; 86850; 86900; 86901; 86927; 87086; 87186; 87340; 87341; 93005; 99152; 99153; C1750; C1769; C1892; J0690; J0696; J1644; J1650; J2250; J2405; J3010; J3475; J3480; J3490; J7030; J7512; P9017; P9045; 97110; 97116; 97530; 97535

== ENCOUNTER 2017-04-11 14:26 | Inpatient (IN) | payer MEDICARE, BC ==
[2017-04-11] VITALS (7 sets, daily range): BP systolic 123–152; BP diastolic 55–72
[~2017-04-11] VITALS: Ht 162.6 cm; Wt 92.5 kg
[2017-04-11] MEDS ORDERED: IV NORMAL SALINE 1000ML BAG 1,000 ML IV SCH (15:07)
[2017-04-11] MEDS ORDERED: PYRIDOSTIGMINE BROMIDE 60 MG TABLET PO STA (15:08)
[2017-04-11 15:17] LABS: BASO # 0.1 x10^3/uL (0.0-0.2); BASO % 1 % (0-3); EOS % 2 % (0-3); HEMATOCRIT 39.2 % (36.0-47.0); HEMOGLOBIN 12.4 g/dL (12.0-15.5); LYMPH # 3.1 x10^3/uL (1.0-4.8); LYMPH % 27 % (24-48); MEAN CORPUSCULAR HEMOGLOBIN 26 pg (25-35); MEAN CORPUSCULAR HGB CONC 32 g/dL (31-37); MEAN CORPUSCULAR VOLUME 81 fL (79-100); MONO % 8 % (0-9); NEUT % 62 % (31-73); PLATELET COUNT 452 x10^3/uL (140-400); RED BLOOD COUNT 4.86 x10^6/uL (3.50-5.40); RED CELL DISTRIBUTION WIDTH 18.9 % (11.5-14.5); WHITE BLOOD COUNT 11.2 x10^3/uL (4.0-11.0)
--- NOTE | 2017-04-11 15:31 | EKG ---
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
[2017-04-11 15:46] LABS: CREATININE 0.7 mg/dL (0.6-1.0); GFR 83.5; POTASSIUM 3.5 mmol/L (3.5-5.1)
--- NOTE | 2017-04-11 15:47 | RAD ---
AP view of the Chest 04/11/2017 5:07 PM Indication: generalized weakness, hypoxia Comparison: Chest radiograph March 27, 2017 Findings: There is interval placement of a tunneled dialysis catheter from a right internal jugular approach. The thorax is identified. Elevation of the right hemidiaphragm is noted. Mild blunting left costophrenic angle similar to prior study which could represent atelectasis or trace effusion. No new focal infiltrate is identified. Postsurgical changes to the left shoulder are similar. No acute osseous changes not seen. Impression: 1. No evidence of acute cardiopulmonary process or change from prior study 2. Similar blunting left costophrenic angle which could represent trace effusion or atelectasis 3. Right internal jugular tunnel dialysis catheter
--- NOTE | 2017-04-11 15:51 | PHYS DOC ---
Past Medical History Past Medical History: Depression, High Cholesterol, Hypertension, Kidney Stone , Other Additional Past Medical Histor: obesity, celiac, sleep apnea,vision problems, MYASTHENIA GRAVIS Past Surgical History: Cholecystectomy, Hip Replacement Additional Past Surgical Histo: pericardial window,left shoulder replacement, hernia repair,left ovary tumo Alcohol Use: None Drug Use: None Adult General Chief Complaint Chief Complaint: WEAKNESS/GENERALIZED HPI HPI Patient is a 66 year old female who presents with complaint generalized weakness. Patient states her symptoms have been worsening over the past 2-3 days. The patient states that she was recently diagnosed with myasthenia gravis. Patient has required plasmapheresis for treatment including her last treatment 2 weeks ago for similar symptoms. Patient states that she has been unable to ambulate under her own power due to her weakness. Patient states she follows with Dr. Ortiz of neurology. Patient states that she has a dialysis catheter left in place in her right subclavian vein in the event that she may need to have further plasmapheresis. Patient denies any fevers. Patient was noted to have low oxygen saturations prior to my interview and was placed on supplemental oxygen. Review of Systems Review of Systems Constitutional: Generalized weakness, denies fever or chills[] Eyes: Denies change in visual acuity, redness, or eye pain [] HENT: Denies nasal congestion or sore throat [] Respiratory: Denies cough or shortness of breath [] Cardiovascular: Denies chest pain or edema[] GI: Denies abdominal pain, nausea, vomiting, bloody stools or diarrhea [] : Denies dysuria or hematuria [] Musculoskeletal: Denies back pain or joint pain [] Integument: Denies rash or skin lesions [] Neurologic: Denies headache, focal weakness or sensory changes [] Current Medications Current Medications Current Medications Medications (Trade) Dose Ordered Sig/Priscila Start Time Stop Time Status Last Admin Dose Admin Pyridostigmine [place] (Mestinon) 60 mg 1X STAT 04/11/17 15:08 04/11/17 15:09 DC 04/11/17 15:37 60 MG Sodium Chloride 1,000 ml @ 100 mls/hr Q10H 04/11/17 15:07 04/12/17 01:06 04/11/17 15:37 100 MLS/HR Allergies Allergies Allergies Coded Allergies Type Severity Reaction Last Updated Verified Penicillins Allergy Intermediate Rash 02/28/17 Yes ciprofloxacin Allergy Intermediate 03/27/17 Yes Sulfa (Sulfonamide Antibiotics) Adverse Reaction Intermediate Nausea 02/28/17 Yes Physical Exam Physical Exam Constitutional: Afebrile, no acute distress. [] HENT: Normocephalic, atraumatic, bilateral external ears normal, oropharynx moist, no oral exudates, nose normal. [] Eyes: PERRLA, EOMI, conjunctiva normal, no discharge. [] Neck: Normal range of motion, no tenderness, supple, no stridor. [] Cardiovascular:Heart rate regular rhythm, no murmur [] Lungs & Thorax: Slow respirations, mildly restricted air movement bilaterally, no wheezes, no rales[] Abdomen: Bowel sounds normal, soft, no tenderness, no masses, no pulsatile masses. [] Skin: Warm, dry, no erythema, no rash. [] Back: No tenderness, no CVA tenderness. [] Extremities: No tenderness, no cyanosis, no clubbing, ROM intact, no edema. [] Neurologic: Alert and oriented X 3, symmetric 4 out of 5 motor strength in bilateral upper and lower extremities, normal sensory function, no focal deficits noted. [] Current Patient Data Vital Signs Vital Signs Date Time Temp Pulse Resp B/P (MAP) Pulse Ox O2 Delivery O2 Flow Rate FiO2 04/11/17 15:34 77 96 04/11/17 14:26 97.7 18 138/66 (90) Nasal Cannula 2.0 97.7 Lab Values Laboratory Tests Test 04/11/17 14:35 White Blood Count 11.2 x10^3/uL (4.0-11.0) H Red Blood Count 4.86 x10^6/uL (3.50-5.40) Hemoglobin 12.4 g/dL (12.0-15.5) Hematocrit 39.2 % (36.0-47.0) Mean Corpuscular Volume 81 fL (79-100) Mean Corpuscular Hemoglobin 26 pg (25-35) Mean Corpuscular Hemoglobin Concent 32 g/dL (31-37) Red Cell Distribution Width 18.9 % (11.5-14.5) H Platelet Count 452 x10^3/uL (140-400) H Neutrophils (%) (Auto) 62 % (31-73) Lymphocytes (%) (Auto) 27 % (24-48) Monocytes (%) (Auto) 8 % (0-9) Eosinophils (%) (Auto) 2 % (0-3) Basophils (%) (Auto) 1 % (0-3) Neutrophils # (Auto) 6.9 x10^3uL (1.8-7.7) Lymphocytes # (Auto) 3.1 x10^3/uL (1.0-4.8) Monocytes # (Auto) 0.9 x10^3/uL (0.0-1.1) Eosinophils # (Auto) 0.3 x10^3/uL (0.0-0.7) Basophils # (Auto) 0.1 x10^3/uL (0.0-0.2) Sodium Level 143 mmol/L (136-145) Potassium Level 3.5 mmol/L (3.5-5.1) Chloride Level 106 mmol/L (98-107) Carbon Dioxide Level 28 mmol/L (21-32) Anion Gap 9 (6-14) Blood Urea Nitrogen 18 mg/dL (7-20) Creatinine 0.7 mg/dL (0.6-1.0) Estimated GFR (Cockcroft-Gault) 83.5 BUN/Creatinine Ratio 26 (6-20) H Glucose Level 89 mg/dL (70-99) Calcium Level 10.0 mg/dL (8.5-10.1) Magnesium Level 1.7 mg/dL (1.8-2.4) L Total Bilirubin 0.2 mg/dL (0.2-1.0) Aspartate Amino Transferase (AST) 22 U/L (15-37) Alanine Aminotransferase (ALT) 25 U/L (14-59) Alkaline Phosphatase 95 U/L (46-116) Total Protein 6.6 g/dL (6.4-8.2) Albumin 3.1 g/dL (3.4-5.0) L Albumin/Globulin Ratio 0.9 (1.0-1.7) L Laboratory Tests 04/11/17 14:35 Laboratory Tests 04/11/17 14:35 EKG EKG Interpreted by me: Heart rate 75, sinus rhythm, leftward axis, no acute ST/T- wave abnormalities present[] Radiology/Procedures Radiology/Procedures [facility] [address] [place] [address] IMAGING REPORT Signed PATIENT: BENY TYLER ACCOUNT: [id number] : 1950 LOCATION: ER AGE: 66 SEX: F EXAM STATUS: REG ER ORD. PHYSICIAN: ARMIDA SWARTZ MD REASON: generalized weakness, hypoxia PROCEDURE: PORTABLE CHEST 1V AP view of the Chest 04/11/2017 5:07 PM Indication: generalized weakness, hypoxia Comparison: Chest radiograph March 27, 2017 Findings: There is interval placement of a tunneled dialysis catheter from a right internal jugular approach. The thorax is identified. Elevation of the right hemidiaphragm is noted. Mild blunting left costophrenic angle similar to prior study which could represent atelectasis or trace effusion. No new focal infiltrate is identified. Postsurgical changes to the left shoulder are similar. No acute osseous changes not seen. Impression: 1. No evidence of acute cardiopulmonary process or change from prior study 2. Similar blunting left costophrenic angle which could represent trace effusion or atelectasis 3. Right internal jugular tunnel dialysis catheter DICTATED and SIGNED BY: PATRICK GOINS MD DATE: 04/11/17 1541 CC: ERIC WHITING MD; ARMIDA SWARTZ MD ~ [] Course & Med Decision Making Course & Med Decision Making Pertinent Labs and Imaging studies reviewed. (See chart for details) The patient was kept on supplemental oxygen which kept the patient's oxygen saturation stable above 94%. Due to concern for possible respiratory depression due to myasthenia exacerbation, I consulted Dr. Ortiz. He stated to go ahead and give the patient her regular dose of Mestinon which was done in the emergency department. He recommended calling nephrology to discuss plasmapheresis to be performed today. I spoke with Dr. Oviedo of nephrology who was agreeable to performing plasmapheresis. Patient was admitted the hospital for further care. I spoke with Dr. Gr who accepted care patient in hospital. Dragon Disclaimer Dragon Disclaimer This electronic medical record was generated, in whole or in part, using a voice recognition dictation system. Departure Departure Impression: Primary Impression: Myasthenia exacerbation Additional Impression: Respiratory depression Disposition: ADMITTED INPATIENT Admitting Physician: Becca Gr Condition: GUARDED Referrals: ERIC WHITING MD (PCP) Problem Qualifiers ARMIDA SWARTZ MD Apr 11, 2017 15:51
[2017-04-11 15:52] LABS: ALBUMIN 3.1 g/dL (3.4-5.0); ALBUMIN/GLOBULIN RATIO 0.9 (1.0-1.7); MAGNESIUM 1.7 mg/dL (1.8-2.4); TOTAL BILIRUBIN 0.2 mg/dL (0.2-1.0); TOTAL PROTEIN 6.6 g/dL (6.4-8.2)
[2017-04-11] MEDS ORDERED: diphenhydrAMINE HCL 25 MG CAPSULE PO PRN (16:15)
[2017-04-11 16:18] LABS: BILIRUBIN,URINE NEGATIVE (NEG); GLUCOSE,URINE NEGATIVE (NEG); NITRITE,URINE NEGATIVE (NEG); PH,URINE 6.5; PROTEIN,URINE NEGATIVE (NEG-TRACE); UROBILINOGEN,URINE 0.2 mg/dL (0.2 mg/dL)
[2017-04-11] MEDS ORDERED: MAGNESIUM SULFATE 2GM 50 ML IV ONE (16:30)
[2017-04-11 16:33] LABS: BACTERIA,URINE 0 /HPF (0-FEW); RBC,URINE 0 /HPF (0-2)
--- NOTE | 2017-04-11 16:42 | PDOC1 ---
History and Physical Date of Admission Date of Admission DATE: 04/11/17 TIME: 16:34 Identification/Chief Complaint Chief Complaint cant walk Problems: Source Source: Caregiver, Chart review, Patient History of Present Illness History of Present Illness 66 yo female, obviously grieving for the recent loss of her dtr who comitted suicide, and also is at [facility] getting iV abx x 6 weeks , was last here 2 weeks ago for myasthenia flare manifested as R hand weakness, got plasmapharesis x 5 days, Sent home with HH, cant afford SNU with co pay $164 a day, COmes in again via EMS bec could not walk, legs weak, arms are fine. On MMT can elevate legs against gravity but weak maybe 3-4/5 both legs, No other focals. Admitted to r.o possible flare. NO other sxs or signs. BS ok, LAbs ok. NO respiratory or bulbar issues Past Medical History Cardiovascular: CAD, Other Pulmonary: Asthma CENTRAL NERVOUS SYSTEM: Periperal neuropathy Musculoskeletal: low back pain, Osteoarthritis Endocrine: Diabetes Past Surgical History Past Surgical History: Appendectomy, Arthroscopy, Total hip replacement, Hysterectomy, Other Family History Family History: Hypertension Social History ALCOHOL: none Drugs: None Current Problem List Problem List Problems Medical Problems: (1) Respiratory depression Status: Acute Problems: Current Medications Current Medications Current Medications Pyridostigmine [place] (Mestinon) 60 mg 1X STAT PO Last administered on 15:37; Start 04/11/17 at 15:08; Stop 04/11/17 at 15:09; Status DC Sodium Chloride 1,000 ml @ 100 mls/hr Q10H IV Last administered on 04/11/17 15:37; Start 04/11/17 at 15:07; Stop 04/12/17 at 01:06 Magnesium Sulfate/ Dextrose 50 ml @ 25 mls/hr 1X ONCE IV ; Start 04/11/17 at 16 :30; Stop 04/11/17 at 18:29 Alprazolam (Xanax) 1 mg PRN TID PRN PO ANXIETY; Start 04/11/17 at 16:00 Amlodipine Besylate (Norvasc) 10 mg DAILY PO ; Start 04/12/17 at 09:00 Atorvastatin Calcium (Lipitor) 10 mg QHS PO ; Start 04/11/17 at 21:00 Acetaminophen/ Hydrocodone Bitart (Lortab 7.5/325) 1 tab PRN Q6HRS PRN PO PAIN ; Start 04/11/17 at 16:00 Pyridostigmine [place] (Mestinon) 60 mg QID PO ; Start 04/11/17 at 17:00 Bupropion HCl (Wellbutrin Xl) 300 mg DAILY PO ; Start 04/12/17 at 09:00 Vitamin D (Vitamin D3) 1,000 unit DAILY PO ; Start 04/12/17 at 09:00 Duloxetine HCl (Cymbalta) 120 mg DAILY PO ; Start 04/12/17 at 09:00 Gabapentin (Neurontin) 300 mg TID PO ; Start 04/11/17 at 21:00 Losartan Potassium (Cozaar) 100 mg DAILY PO ; Start 04/12/17 at 09:00 Diphenhydramine HCl (Benadryl) 25 mg PRN QHS PRN PO INSOMNIA; Start 04/11/17 at 16:15 Active Scripts Active Hydrocodone-Apap 7.5-325 (Hydrocodone Bit/Acetaminophen) 1 Each Tablet 1 Tab PO PRN Q6HRS PRN Amlodipine Besylate 10 Mg Tablet 10 Mg PO DAILY Reported Mestinon (Pyridostigmine [place]) 60 Mg Tablet 60 Mg PO QID Cymbalta (Duloxetine Hcl) 60 Mg Capsule.dr 2 Cap PO DAILY Gabapentin 300 Mg Capsule 300 Mg PO TID Xanax (Alprazolam) 0.5 Mg Tablet 1 Mg PO PRN TID PRN Vitamin D-3 (Cholecalciferol (Vitamin D3)) 2,000 Unit Tablet 1,000 Unit PO DAILY06 Atorvastatin Calcium 10 Mg Tablet 10 Mg PO DAILY Losartan Potassium 100 Mg Tablet 100 Mg PO DAILY Bupropion Xl (Bupropion Hcl) 300 Mg Tab.er.24h 300 Mg PO DAILY Allergies Allergies: Coded Allergies: Penicillins (Verified Allergy, Intermediate, Rash, 02/28/17) ROCEPHIN [place] ciprofloxacin (Verified Allergy, Intermediate, 03/27/17) Sulfa (Sulfonamide Antibiotics) (Verified Adverse Reaction, Intermediate, Nausea, 02/28/17) ROS General: YES: Fatigue, Malaise PSYCHOLOGICAL ROS: YES: Decreased libido, Depression Eyes: No Blurry vision, No Decreased vision, No Double vision, No Dry eyes, No Excessive tearing, No Eye Pain, No Itchy Eyes, No Loss of vision, No Photophobia , No Scotomata, No Uses contacts, No Uses glasses, No Other HEENT: No: Heacaches, Visual Changes, Hearing change, Nasal congestion, Nasal discharge, Oral lesions, Sinus pain, Sore Throat, Epistaxis, Sneezing, Snoring, Tinnitus, Vertigo, Vocal changes, Other ALLERGY AND IMMUNOLOGY: No: Hives, Insect Bite Sensitivity, Itchy/Watery Eyes, Nasal Congestion, Post Nasal Drip, Seasonal Allergies, Other Hematological and Lymphatic: No: Bleeding Problems, Blood Clots, Blood Transfusions, Brusing, Night Sweats, Pallor, Swollen Lymph Nodes, Other ENDOCRINE: No: Breast Changes, Galactorrhea, Hair Pattern Changes, Hot Flashes , Malaise/lethargy, Mood Swings, Palpitations, Polydipsia/polyuria, Skin Changes , Temperature Intolerance, Unexpected Weight Changes, Other Breast: No New/Changing Breast Lumps, No Nipple changes, No Nipple discharge, No Other Respiratory: No: Cough, Hemoptysis, Orthopnea, Pleuritic Pain, Shortness of breath, SOB with excertion, Sputum Changes, Stridor, Tachypnea, Wheezing, Other Cardiovascular: No Chest Pain, No Palpitations, No Orthopnea, No Paroxysmal Noc. Dyspnea, No Edema, No Lt Headedness, No Other Gastrointestinal: No Nausea, No Vomiting, No Abdominal Pain, No Diarrhea, No Constipation, No Melena, No Hematochezia, No Other Musculoskeletal: Yes Muscular Weakness Neurological: No Behavorial Changes, No Bowel/Bladder ControlChng, No Confusion , No Dizziness, No Gait Disturbance, No Headaches, No Impaired Coord/balance, No Memory Loss, No Numbness/Tingling, No Seizures, No Speech Problems, No Tremors, No Visual Changes, No Weakness, No Other Skin: No Dry Skin, No Eczema, No Hair Changes, No Lumps, No Mole Changes, No Mottling, No Nail Changes, No Pruritus, No Rash, No Skin Lesion Changes, No Other, No Acne Physical Exam General: Alert, Oriented X3, Cooperative, No acute distress, Other (down spirit ) HEENT: PERRLA Lungs: Clear to auscultation, Normal air movement Heart: S1S2, RRR, no thrills, no rubs, no gallops, no murmurs Cardiovascular: S1, S2 Abdomen: Normal bowel sounds, Soft, No tenderness, No hepatosplenomegaly, No masses Rectal Exam: not examined PELVIC: Nml ext genitalia Extremities: No clubbing, No cyanosis, No edema, Normal pulses, No tenderness/ swelling Skin: No rashes, No breakdown, No significant lesion Neuro: Normal gait, Normal speech, Normal tone, Sensation intact, Cranial nerves 3-12 NL, Other (4/5 on all 4 extremities) Psych/Mental Status: Mental status NL, Mood NL Vitals Vitals Vital Signs Date Time Temp Pulse Resp B/P (MAP) Pulse Ox O2 Delivery O2 Flow Rate FiO2 04/11/17 16:04 80 12 98 04/11/17 14:26 97.7 138/66 (90) Nasal Cannula 2.0 97.7 Labs Labs Laboratory Tests Test 04/11/17 14:35 White Blood Count 11.2 x10^3/uL (4.0-11.0) Red Blood Count 4.86 x10^6/uL (3.50-5.40) Hemoglobin 12.4 g/dL (12.0-15.5) Hematocrit 39.2 % (36.0-47.0) Mean Corpuscular Volume 81 fL (79-100) Mean Corpuscular Hemoglobin 26 pg (25-35) Mean Corpuscular Hemoglobin Concent 32 g/dL (31-37) Red Cell Distribution Width 18.9 % (11.5-14.5) Platelet Count 452 x10^3/uL (140-400) Neutrophils (%) (Auto) 62 % (31-73) Lymphocytes (%) (Auto) 27 % (24-48) Monocytes (%) (Auto) 8 % (0-9) Eosinophils (%) (Auto) 2 % (0-3) Basophils (%) (Auto) 1 % (0-3) Neutrophils # (Auto) 6.9 x10^3uL (1.8-7.7) Lymphocytes # (Auto) 3.1 x10^3/uL (1.0-4.8) Monocytes # (Auto) 0.9 x10^3/uL (0.0-1.1) Eosinophils # (Auto) 0.3 x10^3/uL (0.0-0.7) Basophils # (Auto) 0.1 x10^3/uL (0.0-0.2) Sodium Level 143 mmol/L (136-145) Potassium Level 3.5 mmol/L (3.5-5.1) Chloride Level 106 mmol/L (98-107) Carbon Dioxide Level 28 mmol/L (21-32) Anion Gap 9 (6-14) Blood Urea Nitrogen 18 mg/dL (7-20) Creatinine 0.7 mg/dL (0.6-1.0) Estimated GFR (Cockcroft-Gault) 83.5 BUN/Creatinine Ratio 26 (6-20) Glucose Level 89 mg/dL (70-99) Calcium Level 10.0 mg/dL (8.5-10.1) Magnesium Level 1.7 mg/dL (1.8-2.4) Total Bilirubin 0.2 mg/dL (0.2-1.0) Aspartate Amino Transf (AST/SGOT) 22 U/L (15-37) Alanine Aminotransferase (ALT/SGPT) 25 U/L (14-59) Alkaline Phosphatase 95 U/L (46-116) Total Protein 6.6 g/dL (6.4-8.2) Albumin 3.1 g/dL (3.4-5.0) Albumin/Globulin Ratio 0.9 (1.0-1.7) Laboratory Tests Test 04/11/17 14:35 04/11/17 16:00 White Blood Count 11.2 x10^3/uL (4.0-11.0) Red Blood Count 4.86 x10^6/uL (3.50-5.40) Hemoglobin 12.4 g/dL (12.0-15.5) Hematocrit 39.2 % (36.0-47.0) Mean Corpuscular Volume 81 fL (79-100) Mean Corpuscular Hemoglobin 26 pg (25-35) Mean Corpuscular Hemoglobin Concent 32 g/dL (31-37) Red Cell Distribution Width 18.9 % (11.5-14.5) Platelet Count 452 x10^3/uL (140-400) Neutrophils (%) (Auto) 62 % (31-73) Lymphocytes (%) (Auto) 27 % (24-48) Monocytes (%) (Auto) 8 % (0-9) Eosinophils (%) (Auto) 2 % (0-3) Basophils (%) (Auto) 1 % (0-3) Neutrophils # (Auto) 6.9 x10^3uL (1.8-7.7) Lymphocytes # (Auto) 3.1 x10^3/uL (1.0-4.8) Monocytes # (Auto) 0.9 x10^3/uL (0.0-1.1) Eosinophils # (Auto) 0.3 x10^3/uL (0.0-0.7) Basophils # (Auto) 0.1 x10^3/uL (0.0-0.2) Sodium Level 143 mmol/L (136-145) Potassium Level 3.5 mmol/L (3.5-5.1) Chloride Level 106 mmol/L (98-107) Carbon Dioxide Level 28 mmol/L (21-32) Anion Gap 9 (6-14) Blood Urea Nitrogen 18 mg/dL (7-20) Creatinine 0.7 mg/dL (0.6-1.0) Estimated GFR (Cockcroft-Gault) 83.5 BUN/Creatinine Ratio 26 (6-20) Glucose Level 89 mg/dL (70-99) Calcium Level 10.0 mg/dL (8.5-10.1) Magnesium Level 1.7 mg/dL (1.8-2.4) Total Bilirubin 0.2 mg/dL (0.2-1.0) Aspartate Amino Transf (AST/SGOT) 22 U/L (15-37) Alanine Aminotransferase (ALT/SGPT) 25 U/L (14-59) Alkaline Phosphatase 95 U/L (46-116) Total Protein 6.6 g/dL (6.4-8.2) Albumin 3.1 g/dL (3.4-5.0) Albumin/Globulin Ratio 0.9 (1.0-1.7) Urine Collection Type Unknown Urine Color Yellow Urine Clarity Clear Urine pH 6.5 Urine Specific [place] 1.020 Urine Protein Negative mg/dL (NEG-TRACE) Urine Glucose (UA) Negative mg/dL (NEG) Urine Ketones (Stick) Negative mg/dL (NEG) Urine Blood Negative (NEG) Urine Nitrite Negative (NEG) Urine Bilirubin Negative (NEG) Urine Urobilinogen Dipstick 0.2 mg/dL (0.2 mg/dL) Urine Leukocyte Esterase Negative (NEG) Urine RBC 0 /HPF (0-2) Urine WBC 1-4 /HPF (0-4) Urine Bacteria 0 /HPF (0-FEW) Urine Mucus Mod /LPF VTE Prophylaxis Ordered VTE Prophylaxis Devices: Yes VTE Pharmacological Prophylaxi: Yes Assessment/Plan Assessment/Plan 1. Gen weakness, bilateral leg weakness, 3-4/5 on exam, absence of bulbar, respi sxs, actually doubt myasthenia flare - just recently completed 5 sessions of plasmapharesis and still has the R subclavian cath. Could be most likely somatization/conversion d.o form recent signfiicant stressors in life (loss of dtr and sick and other dtr undergoing psych tx, recently released from [facility] (in pt psych) 2, OBEsity, HTN, etc - chronic stable 3. Normal Grief PLAN Admit NEuro was consulted and renal consulted in case plasmapharesis needed Supportive meds PT/OT SW - SNU benefits? Cont home meds I did discuss with her she might benefit from seeing a psychologist. seen in ER NAIN PAZ MD Apr 11, 2017 16:42
--- NOTE | 2017-04-11 17:14 | PDOC2 ---
NEUROLOGY CONSULT Date of Admission Date of Admission DATE: 04/11/17 TIME: 17:01 Reason for Consult Reason for Consult: Myasthenia gravis Referring Physician Referring Physician: Dr. Gr PCP: Dr. Yvonne Smith Source Source: Chart review, Patient History of Present Illness History of Present Illness The patient is a 66-year-old right-handed female well known to me for her myasthenia gravis admitted with respiratory distress. She has an acetylcholine receptor antibody titer of 71.9. In my last note of the last hospitalization, during which she received 5 plasma exchange treatments, I wrote for her to be discharged on 10 mg of prednisone a day, but apparently this was not accomplished. The patient did well until today when she developed respiratory distress. She also has some chronic diplopia. She has generalized weakness but had actually gone home on her own because she cannot afford senior care. There is no history of stroke, seizure, or head injury. Past Medical History Cardiovascular: HTN, Hyperlipidemia, Other (pericarditis status-post pericardial window) Pulmonary: Other (sleep apnea on CPAP) CENTRAL NERVOUS SYSTEM: Periperal neuropathy, Other (myasthenia gravis) GI: Other (celiac disease) Psych: Anxiety, Depression Musculoskeletal: low back pain (degenerative disc disease), Osteoarthritis, Other (frequent hip dislocations, right arm fracture) ENT: Other (tinnitus) Renal/: Urinary Incontinence, Other (nephrolithiasis) Dermatology: Basal cell Past Surgical History Past Surgical History: Cholecystectomy, Hernia Repair (umbilical), Other (left shoulder replacement, cardiac catheterization, removal of left ovarian tumor, cystoscopy, lithotripsy) Family History Family History: Cancer Social History Social History Daughter just of suicide, is in rehabilitation for a leg wound, no tobacco or alcohol Current Medications Current Medications Current Medications Pyridostigmine [place] (Mestinon) 60 mg 1X STAT PO Last administered on 15:37; Start 04/11/17 at 15:08; Stop 04/11/17 at 15:09; Status DC Sodium Chloride 1,000 ml @ 100 mls/hr Q10H IV Last administered on 04/11/17 15:37; Start 04/11/17 at 15:07; Stop 04/12/17 at 01:06 Magnesium Sulfate/ Dextrose 50 ml @ 25 mls/hr 1X ONCE IV Last administered on 04/11/17 16:36; Start 04/11/17 at 16:30; Stop 04/11/17 at 18:29 Alprazolam (Xanax) 1 mg PRN TID PRN PO ANXIETY; Start 04/11/17 at 16:00 Amlodipine Besylate (Norvasc) 10 mg DAILY PO ; Start 04/12/17 at 09:00 Atorvastatin Calcium (Lipitor) 10 mg QHS PO ; Start 04/11/17 at 21:00 Acetaminophen/ Hydrocodone Bitart (Lortab 7.5/325) 1 tab PRN Q6HRS PRN PO PAIN ; Start 04/11/17 at 16:00 Pyridostigmine [place] (Mestinon) 60 mg QID PO ; Start 04/11/17 at 17:00 Bupropion HCl (Wellbutrin Xl) 300 mg DAILY PO ; Start 04/12/17 at 09:00 Vitamin D (Vitamin D3) 1,000 unit DAILY PO ; Start 04/12/17 at 09:00 Duloxetine HCl (Cymbalta) 120 mg DAILY PO ; Start 04/12/17 at 09:00 Gabapentin (Neurontin) 300 mg TID PO ; Start 04/11/17 at 21:00 Losartan Potassium (Cozaar) 100 mg DAILY PO ; Start 04/12/17 at 09:00 Diphenhydramine HCl (Benadryl) 25 mg PRN QHS PRN PO INSOMNIA; Start 04/11/17 at 16:15 Active Scripts Active Hydrocodone-Apap 7.5-325 (Hydrocodone Bit/Acetaminophen) 1 Each Tablet 1 Tab PO PRN Q6HRS PRN Amlodipine Besylate 10 Mg Tablet 10 Mg PO DAILY Reported Mestinon (Pyridostigmine [place]) 60 Mg Tablet 60 Mg PO QID Cymbalta (Duloxetine Hcl) 60 Mg Capsule.dr 2 Cap PO DAILY Gabapentin 300 Mg Capsule 300 Mg PO TID Xanax (Alprazolam) 0.5 Mg Tablet 1 Mg PO PRN TID PRN Vitamin D-3 (Cholecalciferol (Vitamin D3)) 2,000 Unit Tablet 1,000 Unit PO DAILY06 Atorvastatin Calcium 10 Mg Tablet 10 Mg PO DAILY Losartan Potassium 100 Mg Tablet 100 Mg PO DAILY Bupropion Xl (Bupropion Hcl) 300 Mg Tab.er.24h 300 Mg PO DAILY Allergies Allergies: Coded Allergies: Penicillins (Verified Allergy, Intermediate, Rash, 9/26/17) ROCEPHIN [place] ciprofloxacin (Verified Allergy, Intermediate, 03/27/17) Sulfa (Sulfonamide Antibiotics) (Verified Adverse Reaction, Intermediate, Nausea, 02/28/17) ROS Review of System Patient denies fevers, chills, weight loss, angina, abdominal pain, change in bowels, or dysuria. Positive for dyspnea and dysphagia. 14 point review of systems is negative. Physical Exam Physical Examination PHYSICAL EXAMINATION: Vital signs: see above. General appearance is normal and in no acute distress. HEENT: Normocephalic and nontraumatic. Eyes, nose, ears, and throat are unremarkable. Neck is supple. No lymphadenopathy. No bruits are heard over the carotid artery. No crepitus. NEUROLOGICAL EXAMINATION: Mental Status Examination: Alert. Oriented to time, place, and person. Answers questions and follows commends. Pupils are equal round and reactive to light and accommodation. Extraocular movements: Left eye abductor palsy. Visual field exam shows no defect on the direct confrontation. No motor or sensory deficits on the facial exam. Uvula in the midline and the soft palate elevated symmetrically. No deviation of the tongue to any direction. Gross hearing is normal. Shoulder shrug normal. Muscle tone is normal. Muscle strength is 3-4/ 5. Deep tendon reflexes are 2+ all around. Plantar reflex is with flexion response bilaterally. [id number] test performance is accurate. Alternative movements are accurate. Gait not tested. Sensory exam shows no deficits. No cerebellar signs are elicited. Vitals VITALS Vital Signs Date Time Temp Pulse Resp B/P (MAP) Pulse Ox O2 Delivery O2 Flow Rate FiO2 04/11/17 16:04 80 12 98 04/11/17 14:26 97.7 138/66 (90) Nasal Cannula 2.0 97.7 Labs Labs Laboratory Tests Test 04/11/17 14:35 04/11/17 16:00 White Blood Count 11.2 x10^3/uL (4.0-11.0) Red Blood Count 4.86 x10^6/uL (3.50-5.40) Hemoglobin 12.4 g/dL (12.0-15.5) Hematocrit 39.2 % (36.0-47.0) Mean Corpuscular Volume 81 fL (79-100) Mean Corpuscular Hemoglobin 26 pg (25-35) Mean Corpuscular Hemoglobin Concent 32 g/dL (31-37) Red Cell Distribution Width 18.9 % (11.5-14.5) Platelet Count 452 x10^3/uL (140-400) Neutrophils (%) (Auto) 62 % (31-73) Lymphocytes (%) (Auto) 27 % (24-48) Monocytes (%) (Auto) 8 % (0-9) Eosinophils (%) (Auto) 2 % (0-3) Basophils (%) (Auto) 1 % (0-3) Neutrophils # (Auto) 6.9 x10^3uL (1.8-7.7) Lymphocytes # (Auto) 3.1 x10^3/uL (1.0-4.8) Monocytes # (Auto) 0.9 x10^3/uL (0.0-1.1) Eosinophils # (Auto) 0.3 x10^3/uL (0.0-0.7) Basophils # (Auto) 0.1 x10^3/uL (0.0-0.2) Sodium Level 143 mmol/L (136-145) Potassium Level 3.5 mmol/L (3.5-5.1) Chloride Level 106 mmol/L (98-107) Carbon Dioxide Level 28 mmol/L (21-32) Anion Gap 9 (6-14) Blood Urea Nitrogen 18 mg/dL (7-20) Creatinine 0.7 mg/dL (0.6-1.0) Estimated GFR (Cockcroft-Gault) 83.5 BUN/Creatinine Ratio 26 (6-20) Glucose Level 89 mg/dL (70-99) Calcium Level 10.0 mg/dL (8.5-10.1) Magnesium Level 1.7 mg/dL (1.8-2.4) Total Bilirubin 0.2 mg/dL (0.2-1.0) Aspartate Amino Transf (AST/SGOT) 22 U/L (15-37) Alanine Aminotransferase (ALT/SGPT) 25 U/L (14-59) Alkaline Phosphatase 95 U/L (46-116) Total Protein 6.6 g/dL (6.4-8.2) Albumin 3.1 g/dL (3.4-5.0) Albumin/Globulin Ratio 0.9 (1.0-1.7) Urine Collection Type Unknown Urine Color Yellow Urine Clarity Clear Urine pH 6.5 Urine Specific [place] 1.020 Urine Protein Negative mg/dL (NEG-TRACE) Urine Glucose (UA) Negative mg/dL (NEG) Urine Ketones (Stick) Negative mg/dL (NEG) Urine Blood Negative (NEG) Urine Nitrite Negative (NEG) Urine Bilirubin Negative (NEG) Urine Urobilinogen Dipstick 0.2 mg/dL (0.2 mg/dL) Urine Leukocyte Esterase Negative (NEG) Urine RBC 0 /HPF (0-2) Urine WBC 1-4 /HPF (0-4) Urine Bacteria 0 /HPF (0-FEW) Urine Mucus Mod /LPF Laboratory Tests Test 04/11/17 14:35 04/11/17 16:00 White Blood Count 11.2 x10^3/uL (4.0-11.0) Red Blood Count 4.86 x10^6/uL (3.50-5.40) Hemoglobin 12.4 g/dL (12.0-15.5) Hematocrit 39.2 % (36.0-47.0) Mean Corpuscular Volume 81 fL (79-100) Mean Corpuscular Hemoglobin 26 pg (25-35) Mean Corpuscular Hemoglobin Concent 32 g/dL (31-37) Red Cell Distribution Width 18.9 % (11.5-14.5) Platelet Count 452 x10^3/uL (140-400) Neutrophils (%) (Auto) 62 % (31-73) Lymphocytes (%) (Auto) 27 % (24-48) Monocytes (%) (Auto) 8 % (0-9) Eosinophils (%) (Auto) 2 % (0-3) Basophils (%) (Auto) 1 % (0-3) Neutrophils # (Auto) 6.9 x10^3uL (1.8-7.7) Lymphocytes # (Auto) 3.1 x10^3/uL (1.0-4.8) Monocytes # (Auto) 0.9 x10^3/uL (0.0-1.1) Eosinophils # (Auto) 0.3 x10^3/uL (0.0-0.7) Basophils # (Auto) 0.1 x10^3/uL (0.0-0.2) Sodium Level 143 mmol/L (136-145) Potassium Level 3.5 mmol/L (3.5-5.1) Chloride Level 106 mmol/L (98-107) Carbon Dioxide Level 28 mmol/L (21-32) Anion Gap 9 (6-14) Blood Urea Nitrogen 18 mg/dL (7-20) Creatinine 0.7 mg/dL (0.6-1.0) Estimated GFR (Cockcroft-Gault) 83.5 BUN/Creatinine Ratio 26 (6-20) Glucose Level 89 mg/dL (70-99) Calcium Level 10.0 mg/dL (8.5-10.1) Magnesium Level 1.7 mg/dL (1.8-2.4) Total Bilirubin 0.2 mg/dL (0.2-1.0) Aspartate Amino Transf (AST/SGOT) 22 U/L (15-37) Alanine Aminotransferase (ALT/SGPT) 25 U/L (14-59) Alkaline Phosphatase 95 U/L (46-116) Total Protein 6.6 g/dL (6.4-8.2) Albumin 3.1 g/dL (3.4-5.0) Albumin/Globulin Ratio 0.9 (1.0-1.7) Urine Collection Type Unknown Urine Color Yellow Urine Clarity Clear Urine pH 6.5 Urine Specific [place] 1.020 Urine Protein Negative mg/dL (NEG-TRACE) Urine Glucose (UA) Negative mg/dL (NEG) Urine Ketones (Stick) Negative mg/dL (NEG) Urine Blood Negative (NEG) Urine Nitrite Negative (NEG) Urine Bilirubin Negative (NEG) Urine Urobilinogen Dipstick 0.2 mg/dL (0.2 mg/dL) Urine Leukocyte Esterase Negative (NEG) Urine RBC 0 /HPF (0-2) Urine WBC 1-4 /HPF (0-4) Urine Bacteria 0 /HPF (0-FEW) Urine Mucus Mod /LPF Assessment/Plan Assessment/Plan Impression: Continue myasthenia exacerbation, respiratory distress, also has diplopia and generalized weakness, but actually was doing well for over a week at home. Peripheral neuropathy Recommendations: Prednisone 20 mg daily Continue Mestinon ICU monitoring Renal consult for 3 days of plasma exchange and then will we assess. Pulmonary consultation Daily negative inspiratory force Pepcid, calcium, vitamin D while on steroids. Thank you for letting me help with the patient's care. KALLI FISHER MD Apr 11, 2017 17:14
[2017-04-11] MEDS ORDERED: HEPARIN PF 500 UNIT/5 ML DISP.SYRIN. IV ONE (17:30)
[2017-04-11] MEDS: CALCIUM CARBONATE 500 MG TABLET PO SCH ×2 (18:00→20:08)
--- NOTE | 2017-04-11 19:07 | PDOC ---
PULMONARY PROGRESS NOTES Vitals Vital Signs Date Time Temp Pulse Resp B/P (MAP) Pulse Ox O2 Delivery O2 Flow Rate FiO2 04/11/17 18:29 Nasal Cannula 2.0 04/11/17 18:18 97.7 61 18 135/62 (86) 94 97.7 Labs Laboratory Tests Test 04/11/17 14:35 04/11/17 16:00 White Blood Count 11.2 x10^3/uL (4.0-11.0) Red Blood Count 4.86 x10^6/uL (3.50-5.40) Hemoglobin 12.4 g/dL (12.0-15.5) Hematocrit 39.2 % (36.0-47.0) Mean Corpuscular Volume 81 fL (79-100) Mean Corpuscular Hemoglobin 26 pg (25-35) Mean Corpuscular Hemoglobin Concent 32 g/dL (31-37) Red Cell Distribution Width 18.9 % (11.5-14.5) Platelet Count 452 x10^3/uL (140-400) Neutrophils (%) (Auto) 62 % (31-73) Lymphocytes (%) (Auto) 27 % (24-48) Monocytes (%) (Auto) 8 % (0-9) Eosinophils (%) (Auto) 2 % (0-3) Basophils (%) (Auto) 1 % (0-3) Neutrophils # (Auto) 6.9 x10^3uL (1.8-7.7) Lymphocytes # (Auto) 3.1 x10^3/uL (1.0-4.8) Monocytes # (Auto) 0.9 x10^3/uL (0.0-1.1) Eosinophils # (Auto) 0.3 x10^3/uL (0.0-0.7) Basophils # (Auto) 0.1 x10^3/uL (0.0-0.2) Sodium Level 143 mmol/L (136-145) Potassium Level 3.5 mmol/L (3.5-5.1) Chloride Level 106 mmol/L (98-107) Carbon Dioxide Level 28 mmol/L (21-32) Anion Gap 9 (6-14) Blood Urea Nitrogen 18 mg/dL (7-20) Creatinine 0.7 mg/dL (0.6-1.0) Estimated GFR (Cockcroft-Gault) 83.5 BUN/Creatinine Ratio 26 (6-20) Glucose Level 89 mg/dL (70-99) Calcium Level 10.0 mg/dL (8.5-10.1) Magnesium Level 1.7 mg/dL (1.8-2.4) Total Bilirubin 0.2 mg/dL (0.2-1.0) Aspartate Amino Transf (AST/SGOT) 22 U/L (15-37) Alanine Aminotransferase (ALT/SGPT) 25 U/L (14-59) Alkaline Phosphatase 95 U/L (46-116) Total Protein 6.6 g/dL (6.4-8.2) Albumin 3.1 g/dL (3.4-5.0) Albumin/Globulin Ratio 0.9 (1.0-1.7) Urine Collection Type Unknown Urine Color Yellow Urine Clarity Clear Urine pH 6.5 Urine Specific [place] 1.020 Urine Protein Negative mg/dL (NEG-TRACE) Urine Glucose (UA) Negative mg/dL (NEG) Urine Ketones (Stick) Negative mg/dL (NEG) Urine Blood Negative (NEG) Urine Nitrite Negative (NEG) Urine Bilirubin Negative (NEG) Urine Urobilinogen Dipstick 0.2 mg/dL (0.2 mg/dL) Urine Leukocyte Esterase Negative (NEG) Urine RBC 0 /HPF (0-2) Urine WBC 1-4 /HPF (0-4) Urine Bacteria 0 /HPF (0-FEW) Urine Mucus Mod /LPF Laboratory Tests Test 04/11/17 14:35 04/11/17 16:00 White Blood Count 11.2 x10^3/uL (4.0-11.0) Red Blood Count 4.86 x10^6/uL (3.50-5.40) Hemoglobin 12.4 g/dL (12.0-15.5) Hematocrit 39.2 % (36.0-47.0) Mean Corpuscular Volume 81 fL (79-100) Mean Corpuscular Hemoglobin 26 pg (25-35) Mean Corpuscular Hemoglobin Concent 32 g/dL (31-37) Red Cell Distribution Width 18.9 % (11.5-14.5) Platelet Count 452 x10^3/uL (140-400) Neutrophils (%) (Auto) 62 % (31-73) Lymphocytes (%) (Auto) 27 % (24-48) Monocytes (%) (Auto) 8 % (0-9) Eosinophils (%) (Auto) 2 % (0-3) Basophils (%) (Auto) 1 % (0-3) Neutrophils # (Auto) 6.9 x10^3uL (1.8-7.7) Lymphocytes # (Auto) 3.1 x10^3/uL (1.0-4.8) Monocytes # (Auto) 0.9 x10^3/uL (0.0-1.1) Eosinophils # (Auto) 0.3 x10^3/uL (0.0-0.7) Basophils # (Auto) 0.1 x10^3/uL (0.0-0.2) Sodium Level 143 mmol/L (136-145) Potassium Level 3.5 mmol/L (3.5-5.1) Chloride Level 106 mmol/L (98-107) Carbon Dioxide Level 28 mmol/L (21-32) Anion Gap 9 (6-14) Blood Urea Nitrogen 18 mg/dL (7-20) Creatinine 0.7 mg/dL (0.6-1.0) Estimated GFR (Cockcroft-Gault) 83.5 BUN/Creatinine Ratio 26 (6-20) Glucose Level 89 mg/dL (70-99) Calcium Level 10.0 mg/dL (8.5-10.1) Magnesium Level 1.7 mg/dL (1.8-2.4) Total Bilirubin 0.2 mg/dL (0.2-1.0) Aspartate Amino Transf (AST/SGOT) 22 U/L (15-37) Alanine Aminotransferase (ALT/SGPT) 25 U/L (14-59) Alkaline Phosphatase 95 U/L (46-116) Total Protein 6.6 g/dL (6.4-8.2) Albumin 3.1 g/dL (3.4-5.0) Albumin/Globulin Ratio 0.9 (1.0-1.7) Urine Collection Type Unknown Urine Color Yellow Urine Clarity Clear Urine pH 6.5 Urine Specific [place] 1.020 Urine Protein Negative mg/dL (NEG-TRACE) Urine Glucose (UA) Negative mg/dL (NEG) Urine Ketones (Stick) Negative mg/dL (NEG) Urine Blood Negative (NEG) Urine Nitrite Negative (NEG) Urine Bilirubin Negative (NEG) Urine Urobilinogen Dipstick 0.2 mg/dL (0.2 mg/dL) Urine Leukocyte Esterase Negative (NEG) Urine RBC 0 /HPF (0-2) Urine WBC 1-4 /HPF (0-4) Urine Bacteria 0 /HPF (0-FEW) Urine Mucus Mod /LPF Medications Active Scripts Medications Dose Route/Sig Max Daily Dose Days Date Category Hydrocodone-Apap 7.5-325 (Hydrocodone Bit/Acetaminophen) 1 Each Tablet 1 Tab PO PRN Q6HRS PRN 03/07/17 Rx Mestinon (Pyridostigmine [place]) 60 Mg Tablet 60 Mg PO QID 02/28/17 Reported Amlodipine Besylate 10 Mg Tablet 10 Mg PO DAILY 05/23/16 Rx Cymbalta (Duloxetine Hcl) 60 Mg Capsule.dr 2 Cap PO DAILY 02/19/16 Reported Gabapentin 300 Mg Capsule 300 Mg PO TID 02/04/16 Reported Xanax (Alprazolam) 0.5 Mg Tablet 1 Mg PO PRN TID PRN 10/04/13 Reported Vitamin D-3 (Cholecalciferol (Vitamin D3)) 2,000 Unit Tablet 1,000 Unit PO DAILY06 08/21/13 Reported Atorvastatin Calcium 10 Mg Tablet 10 Mg PO DAILY 07/31/13 Reported Losartan Potassium 100 Mg Tablet 100 Mg PO DAILY 07/31/13 Reported Bupropion Xl (Bupropion Hcl) 300 Mg Tab.er.24h 300 Mg PO DAILY 07/31/13 Reported Impression . CHART REVIEWED CXR REVIEWED WILL ADD PRN BIPAP FOLLOW NEURO INPUT THANKS LYLA VÁZQUEZ MD Apr 11, 2017 19:07
[2017-04-11] MEDS: PYRIDOSTIGMINE BROMIDE 60 MG TABLET PO SCH (20:08)
[2017-04-11] MEDS: predniSONE 20 MG TABLET PO SCH (20:08)
[2017-04-11] MEDS: ATORVASTATIN CALCIUM 10 MG TABLET. PO SCH (20:08)
[2017-04-11] MEDS: GABAPENTIN 300 MG CAPSULE. PO SCH (20:08)
[2017-04-12] VITALS (16 sets, daily range): BP systolic 101–149; BP diastolic 53–84
[2017-04-12] MEDS: ALPRAZolam 1 MG TABLET PO PRN ×2 (00:19→21:04)
[2017-04-12] MEDS: HYDROcodone/APAP 7.5/325MG 1 TAB TABLET PO PRN ×2 (00:19→21:04)
[2017-04-12 08:21] LABS: CALCIUM 9.6 mg/dL (8.5-10.1); CREATININE 0.5 mg/dL (0.6-1.0); GFR 123.1; POTASSIUM 3.9 mmol/L (3.5-5.1)
[2017-04-12 08:22] LABS: ALBUMIN 2.8 g/dL (3.4-5.0); MAGNESIUM 2.3 mg/dL (1.8-2.4)
[2017-04-12 08:25] LABS: INR 1.1 (0.8-1.1); PROTHROMBIN TIME PATIENT 13.2 SEC (11.7-14.0)
[2017-04-12] MEDS ORDERED: diphenhydrAMINE 50 MG/ML VIAL IV PRN ×2 (08:45)
--- NOTE | 2017-04-12 08:52 | PDOC2 ---
CONSULT Date of Consult Date of Consult DATE: 04/12/17 TIME: 08:31 Reason for Consult Reason for Consult: TPE for Myasthenia Gravis Referring Physician Referring Physician: Dr. Richey, Dr Ordoñez and Dr Gr Identification/Chief Complaint Chief Complaint weakness neena to Myasthenia Gravis exacerbation Problems: Source Source: Chart review, Patient History of Present Illness Reason for Visit: Pt was recently admitted here for MG exacerbation and recieved 5 TPE sessions. She felt much better and was sent home. Yesterday she began feeling weak in all 4 ext and called EMS to bring her to the ER. Dr Richey consulted with Dr Ortiz and we were asked to provide 3 more session of TPE Past Medical History Cardiovascular: HTN, Hyperlipidemia, Other (pericarditis status-post pericardial window) Pulmonary: Other (sleep apnea on CPAP) CENTRAL NERVOUS SYSTEM: Periperal neuropathy, Other (myasthenia gravis) GI: Other (celiac disease) Psych: Anxiety, Depression Musculoskeletal: low back pain (degenerative disc disease), Osteoarthritis, Other (frequent hip dislocations, right arm fracture) ENT: Other (tinnitus) Renal/: Urinary Incontinence, Other (nephrolithiasis) Endocrine: Diabetes Dermatology: Basal cell Past Surgical History Past Surgical History: Cholecystectomy, Hernia Repair (umbilical), Other (left shoulder replacement, cardiac catheterization, removal of left ovarian tumor, cystoscopy, lithotripsy) Family History Family History: Hypertension Social History ALCOHOL: none Drugs: None Lives: with Family Current Problem List Problem List Problems Medical Problems: (1) Respiratory depression Status: Acute Current Medications Current Medications Current Medications Pyridostigmine [place] (Mestinon) 60 mg 1X STAT PO Last administered on 15:37; Start 04/11/17 at 15:08; Stop 04/11/17 at 15:09; Status DC Sodium Chloride 1,000 ml @ 100 mls/hr Q10H IV Last administered on 04/11/17 15:37; Start 04/11/17 at 15:07; Stop 04/12/17 at 01:06; Status DC Magnesium Sulfate/ Dextrose 50 ml @ 25 mls/hr 1X ONCE IV Last administered on 04/11/17 16:36; Start 04/11/17 at 16:30; Stop 04/11/17 at 18:29; Status DC Alprazolam (Xanax) 1 mg PRN TID PRN PO ANXIETY Last administered on 04/12/17 00:19; Start 04/11/17 at 16:00 Amlodipine Besylate (Norvasc) 10 mg DAILY PO ; Start 04/12/17 at 09:00 Atorvastatin Calcium (Lipitor) 10 mg QHS PO Last administered on 04/11/17 20: 08; Start 04/11/17 at 21:00 Acetaminophen/ Hydrocodone Bitart (Lortab 7.5/325) 1 tab PRN Q6HRS PRN PO PAIN Last administered on 04/12/17 00:19; Start 04/11/17 at 16:00 Pyridostigmine [place] (Mestinon) 60 mg QID PO Last administered on 04/11/17 20:08; Start 04/11/17 at 17:00 Bupropion HCl (Wellbutrin Xl) 300 mg DAILY PO ; Start 04/12/17 at 09:00 Vitamin D (Vitamin D3) 1,000 unit DAILY PO ; Start 04/12/17 at 09:00 Duloxetine HCl (Cymbalta) 120 mg DAILY PO ; Start 04/12/17 at 09:00 Gabapentin (Neurontin) 300 mg TID PO Last administered on 04/11/17 20:08; Start 04/11/17 at 21:00 Losartan Potassium (Cozaar) 100 mg DAILY PO ; Start 04/12/17 at 09:00 Diphenhydramine HCl (Benadryl) 25 mg PRN QHS PRN PO INSOMNIA; Start 04/11/17 at 16:15 Prednisone (Prednisone) 20 mg DAILY PO Last administered on 04/11/17 20:08; Start 04/11/17 at 17:15 Calcium Carbonate/ Glycine (Oscal) 500 mg TIDAFTMEAL PO ; Start 04/11/17 at 18: 00 Famotidine (Pepcid) 20 mg DAILY PO ; Start 04/12/17 at 09:00 Ergocalciferol (Vitamin D2) 50,000 unit QMTH PO ; Start 04/13/17 at 16:00 Heparin Sodium (Porcine) (Hep Lock Adult) 500 unit 1X ONCE IV Last administered on 04/11/17 17:28; Start 04/11/17 at 17:30; Stop 04/11/17 at 17:31 ; Status DC Active Scripts Active Hydrocodone-Apap 7.5-325 (Hydrocodone Bit/Acetaminophen) 1 Each Tablet 1 Tab PO PRN Q6HRS PRN Amlodipine Besylate 10 Mg Tablet 10 Mg PO DAILY Reported [place] (Pyridostigmine [place]) 60 Mg Tablet 60 Mg PO QID Cymbalta (Duloxetine Hcl) 60 Mg Capsule.dr 2 Cap PO DAILY Gabapentin 300 Mg Capsule 300 Mg PO TID Xanax (Alprazolam) 0.5 Mg Tablet 1 Mg PO PRN TID PRN Vitamin D-3 (Cholecalciferol (Vitamin D3)) 2,000 Unit Tablet 1,000 Unit PO DAILY06 Atorvastatin Calcium 10 Mg Tablet 10 Mg PO DAILY Losartan Potassium 100 Mg Tablet 100 Mg PO DAILY Bupropion Xl (Bupropion Hcl) 300 Mg Tab.er.24h 300 Mg PO DAILY Allergies Allergies: Coded Allergies: Penicillins (Verified Allergy, Intermediate, Rash, 02/28/17) ROCEPHIN [place] ciprofloxacin (Verified Allergy, Intermediate, 03/27/17) Sulfa (Sulfonamide Antibiotics) (Verified Adverse Reaction, Intermediate, Nausea, 02/28/17) ROS Review of System +ve for Gen weakness Physical Exam Physical Exam GEN: Awake, Oriented x 3, In no distress EYES: Vision Unchanged, Conjunctiva Normal EN: No EN Drainage, Mucous Membranes moist NECK: no JVD, no JVP, Supple, no Thyromegaly CVS: S1S2, no Murmur, No Gallop, No Rub,no Edema RESP: no Rales, no Rhonchi,no Acc. Muscle Use GI: BS + ve, NO Bruit, Non Tender, Non Distended : no CVA tenderness, no Suprapubic Tenderness Vital Signs Vital Signs Date Time Temp Pulse Resp B/P (MAP) Pulse Ox O2 Delivery O2 Flow Rate FiO2 04/12/17 08:00 98.1 58 19 121/66 (84) 97 Nasal Cannula 2.0 98.1 Assessment & Plan TPE with 2L 5% Alb and 1L of NS. Labs Labs Laboratory Tests Test 04/11/17 14:35 04/11/17 16:00 04/12/17 08:00 White Blood Count 11.2 x10^3/uL (4.0-11.0) Red Blood Count 4.86 x10^6/uL (3.50-5.40) Hemoglobin 12.4 g/dL (12.0-15.5) Hematocrit 39.2 % (36.0-47.0) Mean Corpuscular Volume 81 fL (79-100) Mean Corpuscular Hemoglobin 26 pg (25-35) Mean Corpuscular Hemoglobin Concent 32 g/dL (31-37) Red Cell Distribution Width 18.9 % (11.5-14.5) Platelet Count 452 x10^3/uL (140-400) Neutrophils (%) (Auto) 62 % (31-73) Lymphocytes (%) (Auto) 27 % (24-48) Monocytes (%) (Auto) 8 % (0-9) Eosinophils (%) (Auto) 2 % (0-3) Basophils (%) (Auto) 1 % (0-3) Neutrophils # (Auto) 6.9 x10^3uL (1.8-7.7) Lymphocytes # (Auto) 3.1 x10^3/uL (1.0-4.8) Monocytes # (Auto) 0.9 x10^3/uL (0.0-1.1) Eosinophils # (Auto) 0.3 x10^3/uL (0.0-0.7) Basophils # (Auto) 0.1 x10^3/uL (0.0-0.2) Sodium Level 143 mmol/L (136-145) 143 mmol/L (136-145) Potassium Level 3.5 mmol/L (3.5-5.1) 3.9 mmol/L (3.5-5.1) Chloride Level 106 mmol/L (98-107) 106 mmol/L (98-107) Carbon Dioxide Level 28 mmol/L (21-32) 31 mmol/L (21-32) Anion Gap 9 (6-14) 6 (6-14) Blood Urea Nitrogen 18 mg/dL (7-20) 13 mg/dL (7-20) Creatinine 0.7 mg/dL (0.6-1.0) 0.5 mg/dL (0.6-1.0) Estimated GFR (Cockcroft-Gault) 83.5 123.1 BUN/Creatinine Ratio 26 (6-20) Glucose Level 89 mg/dL (70-99) 96 mg/dL (70-99) Calcium Level 10.0 mg/dL (8.5-10.1) 9.6 mg/dL (8.5-10.1) Magnesium Level 1.7 mg/dL (1.8-2.4) 2.3 mg/dL (1.8-2.4) Total Bilirubin 0.2 mg/dL (0.2-1.0) Aspartate Amino Transf (AST/SGOT) 22 U/L (15-37) Alanine Aminotransferase (ALT/SGPT) 25 U/L (14-59) Alkaline Phosphatase 95 U/L (46-116) Total Protein 6.6 g/dL (6.4-8.2) Albumin 3.1 g/dL (3.4-5.0) 2.8 g/dL (3.4-5.0) Albumin/Globulin Ratio 0.9 (1.0-1.7) Urine Collection Type Unknown Urine Color Yellow Urine Clarity Clear Urine pH 6.5 Urine Specific [place] 1.020 Urine Protein Negative mg/dL (NEG-TRACE) Urine Glucose (UA) Negative mg/dL (NEG) Urine Ketones (Stick) Negative mg/dL (NEG) Urine Blood Negative (NEG) Urine Nitrite Negative (NEG) Urine Bilirubin Negative (NEG) Urine Urobilinogen Dipstick 0.2 mg/dL (0.2 mg/dL) Urine Leukocyte Esterase Negative (NEG) Urine RBC 0 /HPF (0-2) Urine WBC 1-4 /HPF (0-4) Urine Bacteria 0 /HPF (0-FEW) Urine Mucus Mod /LPF Laboratory Tests Test 04/11/17 14:35 04/11/17 16:00 04/12/17 08:00 White Blood Count 11.2 x10^3/uL (4.0-11.0) Red Blood Count 4.86 x10^6/uL (3.50-5.40) Hemoglobin 12.4 g/dL (12.0-15.5) Hematocrit 39.2 % (36.0-47.0) Mean Corpuscular Volume 81 fL (79-100) Mean Corpuscular Hemoglobin 26 pg (25-35) Mean Corpuscular Hemoglobin Concent 32 g/dL (31-37) Red Cell Distribution Width 18.9 % (11.5-14.5) Platelet Count 452 x10^3/uL (140-400) Neutrophils (%) (Auto) 62 % (31-73) Lymphocytes (%) (Auto) 27 % (24-48) Monocytes (%) (Auto) 8 % (0-9) Eosinophils (%) (Auto) 2 % (0-3) Basophils (%) (Auto) 1 % (0-3) Neutrophils # (Auto) 6.9 x10^3uL (1.8-7.7) Lymphocytes # (Auto) 3.1 x10^3/uL (1.0-4.8) Monocytes # (Auto) 0.9 x10^3/uL (0.0-1.1) Eosinophils # (Auto) 0.3 x10^3/uL (0.0-0.7) Basophils # (Auto) 0.1 x10^3/uL (0.0-0.2) Sodium Level 143 mmol/L (136-145) 143 mmol/L (136-145) Potassium Level 3.5 mmol/L (3.5-5.1) 3.9 mmol/L (3.5-5.1) Chloride Level 106 mmol/L (98-107) 106 mmol/L (98-107) Carbon Dioxide Level 28 mmol/L (21-32) 31 mmol/L (21-32) Anion Gap 9 (6-14) 6 (6-14) Blood Urea Nitrogen 18 mg/dL (7-20) 13 mg/dL (7-20) Creatinine 0.7 mg/dL (0.6-1.0) 0.5 mg/dL (0.6-1.0) Estimated GFR (Cockcroft-Gault) 83.5 123.1 BUN/Creatinine Ratio 26 (6-20) Glucose Level 89 mg/dL (70-99) 96 mg/dL (70-99) Calcium Level 10.0 mg/dL (8.5-10.1) 9.6 mg/dL (8.5-10.1) Magnesium Level 1.7 mg/dL (1.8-2.4) 2.3 mg/dL (1.8-2.4) Total Bilirubin 0.2 mg/dL (0.2-1.0) Aspartate Amino Transf (AST/SGOT) 22 U/L (15-37) Alanine Aminotransferase (ALT/SGPT) 25 U/L (14-59) Alkaline Phosphatase 95 U/L (46-116) Total Protein 6.6 g/dL (6.4-8.2) Albumin 3.1 g/dL (3.4-5.0) 2.8 g/dL (3.4-5.0) Albumin/Globulin Ratio 0.9 (1.0-1.7) Urine Collection Type Unknown Urine Color Yellow Urine Clarity Clear Urine pH 6.5 Urine Specific [place] 1.020 Urine Protein Negative mg/dL (NEG-TRACE) Urine Glucose (UA) Negative mg/dL (NEG) Urine Ketones (Stick) Negative mg/dL (NEG) Urine Blood Negative (NEG) Urine Nitrite Negative (NEG) Urine Bilirubin Negative (NEG) Urine Urobilinogen Dipstick 0.2 mg/dL (0.2 mg/dL) Urine Leukocyte Esterase Negative (NEG) Urine RBC 0 /HPF (0-2) Urine WBC 1-4 /HPF (0-4) Urine Bacteria 0 /HPF (0-FEW) Urine Mucus Mod /LPF OMI AMIN MD Apr 12, 2017 08:52
[2017-04-12] MEDS ORDERED: ALBUMIN HUMAN 5% 2,000 ML IV ONE (09:00)
[2017-04-12] MEDS: CALCIUM CARBONATE 500 MG TABLET PO SCH ×3 (09:00→17:14)
--- NOTE | 2017-04-12 09:09 | PDOC ---
PROGRESS NOTES Assessment Problems Medical Problems: (1) Respiratory depression Status: Acute Continued myasthenia exacerbation, respiratory distress, also has diplopia and generalized weakness, but actually was doing well for over a week at home. Doing much better today. Peripheral neuropathy Plan Prednisone 20 mg daily, continue after discharge, I asked patient to call me if for some reason she is not given a prednisone prescription this time Continue Mestinon Transfer to regular floor Renal consult for 3 days of plasma exchange and then will we assess. Pulmonary consultation Daily negative inspiratory force Pepcid, calcium, vitamin D while on steroids. Subjective Feels much better Objective Vital Signs Date Time Temp Pulse Resp B/P (MAP) Pulse Ox O2 Delivery O2 Flow Rate FiO2 04/12/17 09:00 63 19 144/68 (93) 92 Nasal Cannula 2.0 04/12/17 08:00 98.1 98.1 Intake and Output 04/13/17 07:00 Intake Total 100 ml Output Total 50 ml Balance 50 ml Intake Oral 100 ml Output Urine Total 50 ml PHYSICAL EXAM Alert. Oriented to time, place and person. PERRL. EOMI. no longer has left lateral rectus weakness CN: no focal findings. Muscle tone: normal. Muscle strength: 4/5 DTR: 2+ Plantar reflex: flexor Gait: not examined in bed. Sensory exam: no abnormal findings. No cerebellar signs elicited. Review of Relevant I have reviewed the following items antonio (where applicable) has been applied. Labs Laboratory Tests Test 04/11/17 14:35 04/11/17 16:00 04/12/17 08:00 White Blood Count 11.2 x10^3/uL (4.0-11.0) Red Blood Count 4.86 x10^6/uL (3.50-5.40) Hemoglobin 12.4 g/dL (12.0-15.5) Hematocrit 39.2 % (36.0-47.0) Mean Corpuscular Volume 81 fL (79-100) Mean Corpuscular Hemoglobin 26 pg (25-35) Mean Corpuscular Hemoglobin Concent 32 g/dL (31-37) Red Cell Distribution Width 18.9 % (11.5-14.5) Platelet Count 452 x10^3/uL (140-400) Neutrophils (%) (Auto) 62 % (31-73) Lymphocytes (%) (Auto) 27 % (24-48) Monocytes (%) (Auto) 8 % (0-9) Eosinophils (%) (Auto) 2 % (0-3) Basophils (%) (Auto) 1 % (0-3) Neutrophils # (Auto) 6.9 x10^3uL (1.8-7.7) Lymphocytes # (Auto) 3.1 x10^3/uL (1.0-4.8) Monocytes # (Auto) 0.9 x10^3/uL (0.0-1.1) Eosinophils # (Auto) 0.3 x10^3/uL (0.0-0.7) Basophils # (Auto) 0.1 x10^3/uL (0.0-0.2) Sodium Level 143 mmol/L (136-145) 143 mmol/L (136-145) Potassium Level 3.5 mmol/L (3.5-5.1) 3.9 mmol/L (3.5-5.1) Chloride Level 106 mmol/L (98-107) 106 mmol/L (98-107) Carbon Dioxide Level 28 mmol/L (21-32) 31 mmol/L (21-32) Anion Gap 9 (6-14) 6 (6-14) Blood Urea Nitrogen 18 mg/dL (7-20) 13 mg/dL (7-20) Creatinine 0.7 mg/dL (0.6-1.0) 0.5 mg/dL (0.6-1.0) Estimated GFR (Cockcroft-Gault) 83.5 123.1 BUN/Creatinine Ratio 26 (6-20) Glucose Level 89 mg/dL (70-99) 96 mg/dL (70-99) Calcium Level 10.0 mg/dL (8.5-10.1) 9.6 mg/dL (8.5-10.1) Magnesium Level 1.7 mg/dL (1.8-2.4) 2.3 mg/dL (1.8-2.4) Total Bilirubin 0.2 mg/dL (0.2-1.0) Aspartate Amino Transf (AST/SGOT) 22 U/L (15-37) Alanine Aminotransferase (ALT/SGPT) 25 U/L (14-59) Alkaline Phosphatase 95 U/L (46-116) Total Protein 6.6 g/dL (6.4-8.2) Albumin 3.1 g/dL (3.4-5.0) 2.8 g/dL (3.4-5.0) Albumin/Globulin Ratio 0.9 (1.0-1.7) Urine Collection Type Unknown Urine Color Yellow Urine Clarity Clear Urine pH 6.5 Urine Specific [place] 1.020 Urine Protein Negative mg/dL (NEG-TRACE) Urine Glucose (UA) Negative mg/dL (NEG) Urine Ketones (Stick) Negative mg/dL (NEG) Urine Blood Negative (NEG) Urine Nitrite Negative (NEG) Urine Bilirubin Negative (NEG) Urine Urobilinogen Dipstick 0.2 mg/dL (0.2 mg/dL) Urine Leukocyte Esterase Negative (NEG) Urine RBC 0 /HPF (0-2) Urine WBC 1-4 /HPF (0-4) Urine Bacteria 0 /HPF (0-FEW) Urine Mucus Mod /LPF Prothrombin Time 13.2 SEC (11.7-14.0) Prothromb Time International Ratio 1.1 (0.8-1.1) Activated Partial Thromboplast Time 34 SEC (24-38) Fibrinogen 341 mg/dL (200-440) Laboratory Tests Test 04/11/17 14:35 04/11/17 16:00 04/12/17 08:00 White Blood Count 11.2 x10^3/uL (4.0-11.0) Red Blood Count 4.86 x10^6/uL (3.50-5.40) Hemoglobin 12.4 g/dL (12.0-15.5) Hematocrit 39.2 % (36.0-47.0) Mean Corpuscular Volume 81 fL (79-100) Mean Corpuscular Hemoglobin 26 pg (25-35) Mean Corpuscular Hemoglobin Concent 32 g/dL (31-37) Red Cell Distribution Width 18.9 % (11.5-14.5) Platelet Count 452 x10^3/uL (140-400) Neutrophils (%) (Auto) 62 % (31-73) Lymphocytes (%) (Auto) 27 % (24-48) Monocytes (%) (Auto) 8 % (0-9) Eosinophils (%) (Auto) 2 % (0-3) Basophils (%) (Auto) 1 % (0-3) Neutrophils # (Auto) 6.9 x10^3uL (1.8-7.7) Lymphocytes # (Auto) 3.1 x10^3/uL (1.0-4.8) Monocytes # (Auto) 0.9 x10^3/uL (0.0-1.1) Eosinophils # (Auto) 0.3 x10^3/uL (0.0-0.7) Basophils # (Auto) 0.1 x10^3/uL (0.0-0.2) Sodium Level 143 mmol/L (136-145) 143 mmol/L (136-145) Potassium Level 3.5 mmol/L (3.5-5.1) 3.9 mmol/L (3.5-5.1) Chloride Level 106 mmol/L (98-107) 106 mmol/L (98-107) Carbon Dioxide Level 28 mmol/L (21-32) 31 mmol/L (21-32) Anion Gap 9 (6-14) 6 (6-14) Blood Urea Nitrogen 18 mg/dL (7-20) 13 mg/dL (7-20) Creatinine 0.7 mg/dL (0.6-1.0) 0.5 mg/dL (0.6-1.0) Estimated GFR (Cockcroft-Gault) 83.5 123.1 BUN/Creatinine Ratio 26 (6-20) Glucose Level 89 mg/dL (70-99) 96 mg/dL (70-99) Calcium Level 10.0 mg/dL (8.5-10.1) 9.6 mg/dL (8.5-10.1) Magnesium Level 1.7 mg/dL (1.8-2.4) 2.3 mg/dL (1.8-2.4) Total Bilirubin 0.2 mg/dL (0.2-1.0) Aspartate Amino Transf (AST/SGOT) 22 U/L (15-37) Alanine Aminotransferase (ALT/SGPT) 25 U/L (14-59) Alkaline Phosphatase 95 U/L (46-116) Total Protein 6.6 g/dL (6.4-8.2) Albumin 3.1 g/dL (3.4-5.0) 2.8 g/dL (3.4-5.0) Albumin/Globulin Ratio 0.9 (1.0-1.7) Urine Collection Type Unknown Urine Color Yellow Urine Clarity Clear Urine pH 6.5 Urine Specific [place] 1.020 Urine Protein Negative mg/dL (NEG-TRACE) Urine Glucose (UA) Negative mg/dL (NEG) Urine Ketones (Stick) Negative mg/dL (NEG) Urine Blood Negative (NEG) Urine Nitrite Negative (NEG) Urine Bilirubin Negative (NEG) Urine Urobilinogen Dipstick 0.2 mg/dL (0.2 mg/dL) Urine Leukocyte Esterase Negative (NEG) Urine RBC 0 /HPF (0-2) Urine WBC 1-4 /HPF (0-4) Urine Bacteria 0 /HPF (0-FEW) Urine Mucus Mod /LPF Prothrombin Time 13.2 SEC (11.7-14.0) Prothromb Time International Ratio 1.1 (0.8-1.1) Activated Partial Thromboplast Time 34 SEC (24-38) Fibrinogen 341 mg/dL (200-440) Medications Current Medications Pyridostigmine [place] (Mestinon) 60 mg 1X STAT PO Last administered on 15:37; Start 04/11/17 at 15:08; Stop 04/11/17 at 15:09; Status DC Sodium Chloride 1,000 ml @ 100 mls/hr Q10H IV Last administered on 04/11/17 15:37; Start 04/11/17 at 15:07; Stop 04/12/17 at 01:06; Status DC Magnesium Sulfate/ Dextrose 50 ml @ 25 mls/hr 1X ONCE IV Last administered on 04/11/17 16:36; Start 04/11/17 at 16:30; Stop 04/11/17 at 18:29; Status DC Alprazolam (Xanax) 1 mg PRN TID PRN PO ANXIETY Last administered on 04/12/17 00:19; Start 04/11/17 at 16:00 Amlodipine Besylate (Norvasc) 10 mg DAILY PO ; Start 04/12/17 at 09:00 Atorvastatin Calcium (Lipitor) 10 mg QHS PO Last administered on 04/11/17 20: 08; Start 04/11/17 at 21:00 Acetaminophen/ Hydrocodone Bitart (Lortab 7.5/325) 1 tab PRN Q6HRS PRN PO PAIN Last administered on 04/12/17 00:19; Start 04/11/17 at 16:00 Pyridostigmine [place] (Mestinon) 60 mg QID PO Last administered on 04/11/17 20:08; Start 04/11/17 at 17:00 Bupropion HCl (Wellbutrin Xl) 300 mg DAILY PO ; Start 04/12/17 at 09:00 Vitamin D (Vitamin D3) 1,000 unit DAILY PO ; Start 04/12/17 at 09:00 Duloxetine HCl (Cymbalta) 120 mg DAILY PO ; Start 04/12/17 at 09:00 Gabapentin (Neurontin) 300 mg TID PO Last administered on 04/11/17 20:08; Start 04/11/17 at 21:00 Losartan Potassium (Cozaar) 100 mg DAILY PO ; Start 04/12/17 at 09:00 Diphenhydramine HCl (Benadryl) 25 mg PRN QHS PRN PO INSOMNIA; Start 04/11/17 at 16:15 Prednisone (Prednisone) 20 mg DAILY PO Last administered on 04/11/17 20:08; Start 04/11/17 at 17:15 Calcium Carbonate/ Glycine (Oscal) 500 mg TIDAFTMEAL PO ; Start 04/11/17 at 18: 00 Famotidine (Pepcid) 20 mg DAILY PO ; Start 04/12/17 at 09:00 Ergocalciferol (Vitamin D2) 50,000 unit QMTH PO ; Start 04/13/17 at 16:00 Heparin Sodium (Porcine) (Hep Lock Adult) 500 unit 1X ONCE IV Last administered on 04/11/17 17:28; Start 04/11/17 at 17:30; Stop 04/11/17 at 17:31 ; Status DC Heparin Sodium (Porcine) (Heparin Sodium) 2,000 unit 1X ONCE IV ; Start at 08:45; Stop 04/12/17 at 08:46; Status DC Diphenhydramine HCl (Benadryl) 25 mg 1X PRN PRN IV ITCHING; Start 04/12/17 at 08:45; Stop 04/13/17 at 08:44 Diphenhydramine HCl (Benadryl) 25 mg 1X PRN PRN IV ITCHING; Start 04/12/17 at 08:45; Stop 04/13/17 at 08:44 Albumin Human 2,000 ml @ 0 mls/hr 1X ONCE IV ; Start 04/12/17 at 09:00; Stop 04/12/17 at 09:01; Status DC Active Scripts Active Hydrocodone-Apap 7.5-325 (Hydrocodone Bit/Acetaminophen) 1 Each Tablet 1 Tab PO PRN Q6HRS PRN Amlodipine Besylate 10 Mg Tablet 10 Mg PO DAILY Reported [place] (Pyridostigmine [place]) 60 Mg Tablet 60 Mg PO QID Cymbalta (Duloxetine Hcl) 60 Mg Capsule.dr 2 Cap PO DAILY Gabapentin 300 Mg Capsule 300 Mg PO TID Xanax (Alprazolam) 0.5 Mg Tablet 1 Mg PO PRN TID PRN Vitamin D-3 (Cholecalciferol (Vitamin D3)) 2,000 Unit Tablet 1,000 Unit PO DAILY06 Atorvastatin Calcium 10 Mg Tablet 10 Mg PO DAILY Losartan Potassium 100 Mg Tablet 100 Mg PO DAILY Bupropion Xl (Bupropion Hcl) 300 Mg Tab.er.24h 300 Mg PO DAILY Vitals/I & O Vital Sign - Last 24 Hours 04/11/17 04/11/17 04/11/17 04/11/17 14:26 15:34 16:04 16:34 Temp 97.7 97.7 Pulse 86 77 80 74 Resp 18 12 B/P (MAP) 138/66 (90) Pulse Ox 97 96 98 97 O2 Delivery Nasal Cannula O2 Flow Rate 2.0 04/11/17 04/11/17 04/11/17 04/11/17 17:04 18:18 18:29 19:30 Temp 97.7 97.7 Pulse 76 61 Resp 18 B/P (MAP) 135/62 (86) Pulse Ox 94 94 O2 Delivery Nasal Cannula Nasal Cannula Nasal Cannula O2 Flow Rate 2.0 2.0 2.0 04/11/17 04/11/17 04/11/17 04/11/17 19:30 19:45 20:00 20:15 Temp 97.9 97.9 Pulse 72 88 77 72 Resp 20 21 11 15 B/P (MAP) 141/68 (92) 152/72 (98) 149/70 (96) 125/68 (87) Pulse Ox 96 94 94 93 O2 Delivery Nasal Cannula Nasal Cannula Nasal Cannula Nasal Cannula O2 Flow Rate 2.0 2.0 2.0 2.0 11/7/17 11/7/17 11/8/17 11/8/17 21:00 23:00 00:00 00:19 Temp 98.1 98.1 Pulse 69 69 68 Resp 27 32 22 20 B/P (MAP) 123/55 (77) 142/69 (93) 149/64 (92) Pulse Ox 96 94 93 94 O2 Delivery Nasal Cannula Nasal Cannula Nasal Cannula Nasal Cannula O2 Flow Rate 2.0 2.0 2.0 2.0 04/12/17 04/12/17 04/12/17 04/12/17 01:00 01:20 02:00 03:00 Pulse 70 64 61 Resp 23 33 33 33 B/P (MAP) 141/71 (94) 113/58 (76) 101/57 (72) Pulse Ox 90 92 93 O2 Delivery Nasal Cannula Nasal Cannula Nasal Cannula Nasal Cannula O2 Flow Rate 2.0 2.0 2.0 2.0 04/12/17 04/12/17 04/12/17 04/12/17 04:21 05:00 07:00 08:00 Temp 98.3 98.3 Pulse 62 60 58 Resp 28 26 19 B/P (MAP) 111/58 (75) 107/62 (77) 115/58 (77) Pulse Ox 94 94 93 O2 Delivery Nasal Cannula Nasal Cannula Nasal Cannula Nasal Cannula O2 Flow Rate 2.0 2.0 2.0 2.0 04/12/17 04/12/17 08:00 09:00 Temp 98.1 98.1 Pulse 58 63 Resp 19 19 B/P (MAP) 121/66 (84) 144/68 (93) Pulse Ox 97 92 O2 Delivery Nasal Cannula Nasal Cannula O2 Flow Rate 2.0 2.0 Intake and Output 04/12/17 04/12/17 04/13/17 15:00 23:00 07:00 Intake Total 100 ml Output Total 50 ml Balance 50 ml KALLI FISHER MD Apr 12, 2017 09:09
[2017-04-12] MEDS: DULoxetine HCL 30 MG CAPSULE.DR PO SCH (10:51)
[2017-04-12] MEDS: GABAPENTIN 300 MG CAPSULE. PO SCH ×3 (10:51→21:03)
[2017-04-12] MEDS: PYRIDOSTIGMINE BROMIDE 60 MG TABLET PO SCH ×4 (10:51→21:03)
[2017-04-12] MEDS: predniSONE 20 MG TABLET PO SCH (10:52)
[2017-04-12] MEDS: CHOLECALCIFEROL (VITAMIN D3) 1,000 UNIT TABLET PO SCH (10:52)
[2017-04-12] MEDS: LOSARTAN POTASSIUM 50 MG TABLET. PO SCH (10:52)
[2017-04-12] MEDS: amLODIPine BESYLATE 10 MG TABLET PO SCH (10:52)
[2017-04-12] MEDS: buPROPion XL 150 MG TAB.ER.24H. PO SCH (10:53)
[2017-04-12] MEDS: FAMOTIDINE 20 MG TABLET. PO SCH (10:53)
--- NOTE | 2017-04-12 12:34 | PDOC ---
PULMONARY PROGRESS NOTES Vitals Vital Signs Date Time Temp Pulse Resp B/P (MAP) Pulse Ox O2 Delivery O2 Flow Rate FiO2 04/12/17 12:00 98.1 64 19 144/57 (86) 96 Nasal Cannula 2.0 98.1 Labs Laboratory Tests Test 04/11/17 14:35 04/11/17 16:00 04/12/17 08:00 White Blood Count 11.2 x10^3/uL (4.0-11.0) Red Blood Count 4.86 x10^6/uL (3.50-5.40) Hemoglobin 12.4 g/dL (12.0-15.5) Hematocrit 39.2 % (36.0-47.0) Mean Corpuscular Volume 81 fL (79-100) Mean Corpuscular Hemoglobin 26 pg (25-35) Mean Corpuscular Hemoglobin Concent 32 g/dL (31-37) Red Cell Distribution Width 18.9 % (11.5-14.5) Platelet Count 452 x10^3/uL (140-400) Neutrophils (%) (Auto) 62 % (31-73) Lymphocytes (%) (Auto) 27 % (24-48) Monocytes (%) (Auto) 8 % (0-9) Eosinophils (%) (Auto) 2 % (0-3) Basophils (%) (Auto) 1 % (0-3) Neutrophils # (Auto) 6.9 x10^3uL (1.8-7.7) Lymphocytes # (Auto) 3.1 x10^3/uL (1.0-4.8) Monocytes # (Auto) 0.9 x10^3/uL (0.0-1.1) Eosinophils # (Auto) 0.3 x10^3/uL (0.0-0.7) Basophils # (Auto) 0.1 x10^3/uL (0.0-0.2) Sodium Level 143 mmol/L (136-145) 143 mmol/L (136-145) Potassium Level 3.5 mmol/L (3.5-5.1) 3.9 mmol/L (3.5-5.1) Chloride Level 106 mmol/L (98-107) 106 mmol/L (98-107) Carbon Dioxide Level 28 mmol/L (21-32) 31 mmol/L (21-32) Anion Gap 9 (6-14) 6 (6-14) Blood Urea Nitrogen 18 mg/dL (7-20) 13 mg/dL (7-20) Creatinine 0.7 mg/dL (0.6-1.0) 0.5 mg/dL (0.6-1.0) Estimated GFR (Cockcroft-Gault) 83.5 123.1 BUN/Creatinine Ratio 26 (6-20) Glucose Level 89 mg/dL (70-99) 96 mg/dL (70-99) Calcium Level 10.0 mg/dL (8.5-10.1) 9.6 mg/dL (8.5-10.1) Magnesium Level 1.7 mg/dL (1.8-2.4) 2.3 mg/dL (1.8-2.4) Total Bilirubin 0.2 mg/dL (0.2-1.0) Aspartate Amino Transf (AST/SGOT) 22 U/L (15-37) Alanine Aminotransferase (ALT/SGPT) 25 U/L (14-59) Alkaline Phosphatase 95 U/L (46-116) Total Protein 6.6 g/dL (6.4-8.2) Albumin 3.1 g/dL (3.4-5.0) 2.8 g/dL (3.4-5.0) Albumin/Globulin Ratio 0.9 (1.0-1.7) Urine Collection Type Unknown Urine Color Yellow Urine Clarity Clear Urine pH 6.5 Urine Specific [place] 1.020 Urine Protein Negative mg/dL (NEG-TRACE) Urine Glucose (UA) Negative mg/dL (NEG) Urine Ketones (Stick) Negative mg/dL (NEG) Urine Blood Negative (NEG) Urine Nitrite Negative (NEG) Urine Bilirubin Negative (NEG) Urine Urobilinogen Dipstick 0.2 mg/dL (0.2 mg/dL) Urine Leukocyte Esterase Negative (NEG) Urine RBC 0 /HPF (0-2) Urine WBC 1-4 /HPF (0-4) Urine Bacteria 0 /HPF (0-FEW) Urine Mucus Mod /LPF Prothrombin Time 13.2 SEC (11.7-14.0) Prothromb Time International Ratio 1.1 (0.8-1.1) Activated Partial Thromboplast Time 34 SEC (24-38) Fibrinogen 341 mg/dL (200-440) Laboratory Tests Test 04/11/17 14:35 04/11/17 16:00 04/12/17 08:00 White Blood Count 11.2 x10^3/uL (4.0-11.0) Red Blood Count 4.86 x10^6/uL (3.50-5.40) Hemoglobin 12.4 g/dL (12.0-15.5) Hematocrit 39.2 % (36.0-47.0) Mean Corpuscular Volume 81 fL (79-100) Mean Corpuscular Hemoglobin 26 pg (25-35) Mean Corpuscular Hemoglobin Concent 32 g/dL (31-37) Red Cell Distribution Width 18.9 % (11.5-14.5) Platelet Count 452 x10^3/uL (140-400) Neutrophils (%) (Auto) 62 % (31-73) Lymphocytes (%) (Auto) 27 % (24-48) Monocytes (%) (Auto) 8 % (0-9) Eosinophils (%) (Auto) 2 % (0-3) Basophils (%) (Auto) 1 % (0-3) Neutrophils # (Auto) 6.9 x10^3uL (1.8-7.7) Lymphocytes # (Auto) 3.1 x10^3/uL (1.0-4.8) Monocytes # (Auto) 0.9 x10^3/uL (0.0-1.1) Eosinophils # (Auto) 0.3 x10^3/uL (0.0-0.7) Basophils # (Auto) 0.1 x10^3/uL (0.0-0.2) Sodium Level 143 mmol/L (136-145) 143 mmol/L (136-145) Potassium Level 3.5 mmol/L (3.5-5.1) 3.9 mmol/L (3.5-5.1) Chloride Level 106 mmol/L (98-107) 106 mmol/L (98-107) Carbon Dioxide Level 28 mmol/L (21-32) 31 mmol/L (21-32) Anion Gap 9 (6-14) 6 (6-14) Blood Urea Nitrogen 18 mg/dL (7-20) 13 mg/dL (7-20) Creatinine 0.7 mg/dL (0.6-1.0) 0.5 mg/dL (0.6-1.0) Estimated GFR (Cockcroft-Gault) 83.5 123.1 BUN/Creatinine Ratio 26 (6-20) Glucose Level 89 mg/dL (70-99) 96 mg/dL (70-99) Calcium Level 10.0 mg/dL (8.5-10.1) 9.6 mg/dL (8.5-10.1) Magnesium Level 1.7 mg/dL (1.8-2.4) 2.3 mg/dL (1.8-2.4) Total Bilirubin 0.2 mg/dL (0.2-1.0) Aspartate Amino Transf (AST/SGOT) 22 U/L (15-37) Alanine Aminotransferase (ALT/SGPT) 25 U/L (14-59) Alkaline Phosphatase 95 U/L (46-116) Total Protein 6.6 g/dL (6.4-8.2) Albumin 3.1 g/dL (3.4-5.0) 2.8 g/dL (3.4-5.0) Albumin/Globulin Ratio 0.9 (1.0-1.7) Urine Collection Type Unknown Urine Color Yellow Urine Clarity Clear Urine pH 6.5 Urine Specific [place] 1.020 Urine Protein Negative mg/dL (NEG-TRACE) Urine Glucose (UA) Negative mg/dL (NEG) Urine Ketones (Stick) Negative mg/dL (NEG) Urine Blood Negative (NEG) Urine Nitrite Negative (NEG) Urine Bilirubin Negative (NEG) Urine Urobilinogen Dipstick 0.2 mg/dL (0.2 mg/dL) Urine Leukocyte Esterase Negative (NEG) Urine RBC 0 /HPF (0-2) Urine WBC 1-4 /HPF (0-4) Urine Bacteria 0 /HPF (0-FEW) Urine Mucus Mod /LPF Prothrombin Time 13.2 SEC (11.7-14.0) Prothromb Time International Ratio 1.1 (0.8-1.1) Activated Partial Thromboplast Time 34 SEC (24-38) Fibrinogen 341 mg/dL (200-440) Medications Active Scripts Medications Dose Route/Sig Max Daily Dose Days Date Category Hydrocodone-Apap 7.5-325 (Hydrocodone Bit/Acetaminophen) 1 Each Tablet 1 Tab PO PRN Q6HRS PRN 10/3/17 Rx Mestinon (Pyridostigmine [place]) 60 Mg Tablet 60 Mg PO QID 02/28/17 Reported Amlodipine Besylate 10 Mg Tablet 10 Mg PO DAILY 05/23/16 Rx Cymbalta (Duloxetine Hcl) 60 Mg Capsule.dr 2 Cap PO DAILY 02/19/16 Reported Gabapentin 300 Mg Capsule 300 Mg PO TID 02/04/16 Reported Xanax (Alprazolam) 0.5 Mg Tablet 1 Mg PO PRN TID PRN 10/04/13 Reported Vitamin D-3 (Cholecalciferol (Vitamin D3)) 2,000 Unit Tablet 1,000 Unit PO DAILY06 08/21/13 Reported Atorvastatin Calcium 10 Mg Tablet 10 Mg PO DAILY 07/31/13 Reported Losartan Potassium 100 Mg Tablet 100 Mg PO DAILY 07/31/13 Reported Bupropion Xl (Bupropion Hcl) 300 Mg Tab.er.24h 300 Mg PO DAILY 07/31/13 Reported Impression . DICTATED AGREE WITH CURRENT RX THANKS [employer] USES [employer]ACH[employer] NIF LYLA VÁZQUEZ MD Apr 12, 2017 12:34
--- NOTE | 2017-04-12 13:14 | PDOC ---
PROGRESS NOTES Chief Complaint Chief Complaint 1. Gen weakness, bilateral leg weakness, 3-4/5 on exam, absence of bulbar, respi sxs, actually doubt myasthenia flare - just recently completed 5 sessions of plasmapharesis and still has the R subclavian cath. 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 Normal Grief History of Present Illness History of Present Illness Pt seen at bedside in ICU. Is to be transferred to general medical floor imminently. States she is breathing better this morning, and no apparent SOA during our conversation. Pt is being followed by neurology and nephrology. Plan is to undergo 3 days of plasmapharesis followed by dc on prednisone. Will continue to follow her and monitor during this time. Would also like to clarify her domestic situation described in previous notes: she has lost a daughter d/t autoimmune disease, is currently in OP rehab after admission here at [facility] a few weeks ago, other daughter was recently discharged from [facility] following inpatient stay after suicide attempt a few weeks ago. Vitals Vitals Vital Signs Date Time Temp Pulse Resp B/P (MAP) Pulse Ox O2 Delivery O2 Flow Rate FiO2 04/12/17 12:00 98.1 64 19 144/57 (86) 96 Nasal Cannula 2.0 98.1 Physical Exam General: Alert, Oriented X3, Cooperative, No acute distress, Other (down spirit ) Abdomen: Normal bowel sounds, Soft, No tenderness, No hepatosplenomegaly, No masses Extremities: No clubbing, No cyanosis, No edema, Normal pulses, No tenderness/ swelling Skin: No rashes, No breakdown, No significant lesion Labs LABS Laboratory Tests Test 04/11/17 14:35 04/11/17 16:00 04/12/17 08:00 White Blood Count 11.2 x10^3/uL (4.0-11.0) Red Blood Count 4.86 x10^6/uL (3.50-5.40) Hemoglobin 12.4 g/dL (12.0-15.5) Hematocrit 39.2 % (36.0-47.0) Mean Corpuscular Volume 81 fL (79-100) Mean Corpuscular Hemoglobin 26 pg (25-35) Mean Corpuscular Hemoglobin Concent 32 g/dL (31-37) Red Cell Distribution Width 18.9 % (11.5-14.5) Platelet Count 452 x10^3/uL (140-400) Neutrophils (%) (Auto) 62 % (31-73) Lymphocytes (%) (Auto) 27 % (24-48) Monocytes (%) (Auto) 8 % (0-9) Eosinophils (%) (Auto) 2 % (0-3) Basophils (%) (Auto) 1 % (0-3) Neutrophils # (Auto) 6.9 x10^3uL (1.8-7.7) Lymphocytes # (Auto) 3.1 x10^3/uL (1.0-4.8) Monocytes # (Auto) 0.9 x10^3/uL (0.0-1.1) Eosinophils # (Auto) 0.3 x10^3/uL (0.0-0.7) Basophils # (Auto) 0.1 x10^3/uL (0.0-0.2) Sodium Level 143 mmol/L (136-145) 143 mmol/L (136-145) Potassium Level 3.5 mmol/L (3.5-5.1) 3.9 mmol/L (3.5-5.1) Chloride Level 106 mmol/L (98-107) 106 mmol/L (98-107) Carbon Dioxide Level 28 mmol/L (21-32) 31 mmol/L (21-32) Anion Gap 9 (6-14) 6 (6-14) Blood Urea Nitrogen 18 mg/dL (7-20) 13 mg/dL (7-20) Creatinine 0.7 mg/dL (0.6-1.0) 0.5 mg/dL (0.6-1.0) Estimated GFR (Cockcroft-Gault) 83.5 123.1 BUN/Creatinine Ratio 26 (6-20) Glucose Level 89 mg/dL (70-99) 96 mg/dL (70-99) Calcium Level 10.0 mg/dL (8.5-10.1) 9.6 mg/dL (8.5-10.1) Magnesium Level 1.7 mg/dL (1.8-2.4) 2.3 mg/dL (1.8-2.4) Total Bilirubin 0.2 mg/dL (0.2-1.0) Aspartate Amino Transf (AST/SGOT) 22 U/L (15-37) Alanine Aminotransferase (ALT/SGPT) 25 U/L (14-59) Alkaline Phosphatase 95 U/L (46-116) Total Protein 6.6 g/dL (6.4-8.2) Albumin 3.1 g/dL (3.4-5.0) 2.8 g/dL (3.4-5.0) Albumin/Globulin Ratio 0.9 (1.0-1.7) Urine Collection Type Unknown Urine Color Yellow Urine Clarity Clear Urine pH 6.5 Urine Specific [place] 1.020 Urine Protein Negative mg/dL (NEG-TRACE) Urine Glucose (UA) Negative mg/dL (NEG) Urine Ketones (Stick) Negative mg/dL (NEG) Urine Blood Negative (NEG) Urine Nitrite Negative (NEG) Urine Bilirubin Negative (NEG) Urine Urobilinogen Dipstick 0.2 mg/dL (0.2 mg/dL) Urine Leukocyte Esterase Negative (NEG) Urine RBC 0 /HPF (0-2) Urine WBC 1-4 /HPF (0-4) Urine Bacteria 0 /HPF (0-FEW) Urine Mucus Mod /LPF Prothrombin Time 13.2 SEC (11.7-14.0) Prothromb Time International Ratio 1.1 (0.8-1.1) Activated Partial Thromboplast Time 34 SEC (24-38) Fibrinogen 341 mg/dL (200-440) Review of Systems Review of Systems AOCx3, in NAD. No CP, no SOB. No cough or wheezing present. LE weakness but no signs of trauma, no LE edema. Assessment and Plan Assessmemt and Plan Problems Medical Problems: (1) Respiratory depression Status: Acute 1. Gen weakness, bilateral leg weakness, 3-4/5 on exam, absence of bulbar, respi sxs, actually doubt myasthenia flare - just recently completed 5 sessions of plasmapharesis and still has the R subclavian cath. 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 Normal Grief PLAN: Transfer to general medical floor Continue Mestinon as directed Continue prednisone as directed Appreciate ongoing subspecialist input COntinue O2 PRN PT/OT Problems: Comment Review of Relevant I have reviewed the following items antonio (where applicable) has been applied. Labs Laboratory Tests Test 04/11/17 14:35 04/11/17 16:00 04/12/17 08:00 White Blood Count 11.2 x10^3/uL (4.0-11.0) Red Blood Count 4.86 x10^6/uL (3.50-5.40) Hemoglobin 12.4 g/dL (12.0-15.5) Hematocrit 39.2 % (36.0-47.0) Mean Corpuscular Volume 81 fL (79-100) Mean Corpuscular Hemoglobin 26 pg (25-35) Mean Corpuscular Hemoglobin Concent 32 g/dL (31-37) Red Cell Distribution Width 18.9 % (11.5-14.5) Platelet Count 452 x10^3/uL (140-400) Neutrophils (%) (Auto) 62 % (31-73) Lymphocytes (%) (Auto) 27 % (24-48) Monocytes (%) (Auto) 8 % (0-9) Eosinophils (%) (Auto) 2 % (0-3) Basophils (%) (Auto) 1 % (0-3) Neutrophils # (Auto) 6.9 x10^3uL (1.8-7.7) Lymphocytes # (Auto) 3.1 x10^3/uL (1.0-4.8) Monocytes # (Auto) 0.9 x10^3/uL (0.0-1.1) Eosinophils # (Auto) 0.3 x10^3/uL (0.0-0.7) Basophils # (Auto) 0.1 x10^3/uL (0.0-0.2) Sodium Level 143 mmol/L (136-145) 143 mmol/L (136-145) Potassium Level 3.5 mmol/L (3.5-5.1) 3.9 mmol/L (3.5-5.1) Chloride Level 106 mmol/L (98-107) 106 mmol/L (98-107) Carbon Dioxide Level 28 mmol/L (21-32) 31 mmol/L (21-32) Anion Gap 9 (6-14) 6 (6-14) Blood Urea Nitrogen 18 mg/dL (7-20) 13 mg/dL (7-20) Creatinine 0.7 mg/dL (0.6-1.0) 0.5 mg/dL (0.6-1.0) Estimated GFR (Cockcroft-Gault) 83.5 123.1 BUN/Creatinine Ratio 26 (6-20) Glucose Level 89 mg/dL (70-99) 96 mg/dL (70-99) Calcium Level 10.0 mg/dL (8.5-10.1) 9.6 mg/dL (8.5-10.1) Magnesium Level 1.7 mg/dL (1.8-2.4) 2.3 mg/dL (1.8-2.4) Total Bilirubin 0.2 mg/dL (0.2-1.0) Aspartate Amino Transf (AST/SGOT) 22 U/L (15-37) Alanine Aminotransferase (ALT/SGPT) 25 U/L (14-59) Alkaline Phosphatase 95 U/L (46-116) Total Protein 6.6 g/dL (6.4-8.2) Albumin 3.1 g/dL (3.4-5.0) 2.8 g/dL (3.4-5.0) Albumin/Globulin Ratio 0.9 (1.0-1.7) Urine Collection Type Unknown Urine Color Yellow Urine Clarity Clear Urine pH 6.5 Urine Specific [place] 1.020 Urine Protein Negative mg/dL (NEG-TRACE) Urine Glucose (UA) Negative mg/dL (NEG) Urine Ketones (Stick) Negative mg/dL (NEG) Urine Blood Negative (NEG) Urine Nitrite Negative (NEG) Urine Bilirubin Negative (NEG) Urine Urobilinogen Dipstick 0.2 mg/dL (0.2 mg/dL) Urine Leukocyte Esterase Negative (NEG) Urine RBC 0 /HPF (0-2) Urine WBC 1-4 /HPF (0-4) Urine Bacteria 0 /HPF (0-FEW) Urine Mucus Mod /LPF Prothrombin Time 13.2 SEC (11.7-14.0) Prothromb Time International Ratio 1.1 (0.8-1.1) Activated Partial Thromboplast Time 34 SEC (24-38) Fibrinogen 341 mg/dL (200-440) Laboratory Tests Test 04/11/17 14:35 04/11/17 16:00 04/12/17 08:00 White Blood Count 11.2 x10^3/uL (4.0-11.0) Red Blood Count 4.86 x10^6/uL (3.50-5.40) Hemoglobin 12.4 g/dL (12.0-15.5) Hematocrit 39.2 % (36.0-47.0) Mean Corpuscular Volume 81 fL (79-100) Mean Corpuscular Hemoglobin 26 pg (25-35) Mean Corpuscular Hemoglobin Concent 32 g/dL (31-37) Red Cell Distribution Width 18.9 % (11.5-14.5) Platelet Count 452 x10^3/uL (140-400) Neutrophils (%) (Auto) 62 % (31-73) Lymphocytes (%) (Auto) 27 % (24-48) Monocytes (%) (Auto) 8 % (0-9) Eosinophils (%) (Auto) 2 % (0-3) Basophils (%) (Auto) 1 % (0-3) Neutrophils # (Auto) 6.9 x10^3uL (1.8-7.7) Lymphocytes # (Auto) 3.1 x10^3/uL (1.0-4.8) Monocytes # (Auto) 0.9 x10^3/uL (0.0-1.1) Eosinophils # (Auto) 0.3 x10^3/uL (0.0-0.7) Basophils # (Auto) 0.1 x10^3/uL (0.0-0.2) Sodium Level 143 mmol/L (136-145) 143 mmol/L (136-145) Potassium Level 3.5 mmol/L (3.5-5.1) 3.9 mmol/L (3.5-5.1) Chloride Level 106 mmol/L (98-107) 106 mmol/L (98-107) Carbon Dioxide Level 28 mmol/L (21-32) 31 mmol/L (21-32) Anion Gap 9 (6-14) 6 (6-14) Blood Urea Nitrogen 18 mg/dL (7-20) 13 mg/dL (7-20) Creatinine 0.7 mg/dL (0.6-1.0) 0.5 mg/dL (0.6-1.0) Estimated GFR (Cockcroft-Gault) 83.5 123.1 BUN/Creatinine Ratio 26 (6-20) Glucose Level 89 mg/dL (70-99) 96 mg/dL (70-99) Calcium Level 10.0 mg/dL (8.5-10.1) 9.6 mg/dL (8.5-10.1) Magnesium Level 1.7 mg/dL (1.8-2.4) 2.3 mg/dL (1.8-2.4) Total Bilirubin 0.2 mg/dL (0.2-1.0) Aspartate Amino Transf (AST/SGOT) 22 U/L (15-37) Alanine Aminotransferase (ALT/SGPT) 25 U/L (14-59) Alkaline Phosphatase 95 U/L (46-116) Total Protein 6.6 g/dL (6.4-8.2) Albumin 3.1 g/dL (3.4-5.0) 2.8 g/dL (3.4-5.0) Albumin/Globulin Ratio 0.9 (1.0-1.7) Urine Collection Type Unknown Urine Color Yellow Urine Clarity Clear Urine pH 6.5 Urine Specific [place] 1.020 Urine Protein Negative mg/dL (NEG-TRACE) Urine Glucose (UA) Negative mg/dL (NEG) Urine Ketones (Stick) Negative mg/dL (NEG) Urine Blood Negative (NEG) Urine Nitrite Negative (NEG) Urine Bilirubin Negative (NEG) Urine Urobilinogen Dipstick 0.2 mg/dL (0.2 mg/dL) Urine Leukocyte Esterase Negative (NEG) Urine RBC 0 /HPF (0-2) Urine WBC 1-4 /HPF (0-4) Urine Bacteria 0 /HPF (0-FEW) Urine Mucus Mod /LPF Prothrombin Time 13.2 SEC (11.7-14.0) Prothromb Time International Ratio 1.1 (0.8-1.1) Activated Partial Thromboplast Time 34 SEC (24-38) Fibrinogen 341 mg/dL (200-440) Medications Current Medications Pyridostigmine [place] (Mestinon) 60 mg 1X STAT PO Last administered on 15:37; Start 04/11/17 at 15:08; Stop 04/11/17 at 15:09; Status DC Sodium Chloride 1,000 ml @ 100 mls/hr Q10H IV Last administered on 04/11/17 15:37; Start 04/11/17 at 15:07; Stop 04/12/17 at 01:06; Status DC Magnesium Sulfate/ Dextrose 50 ml @ 25 mls/hr 1X ONCE IV Last administered on 04/11/17 16:36; Start 04/11/17 at 16:30; Stop 04/11/17 at 18:29; Status DC Alprazolam (Xanax) 1 mg PRN TID PRN PO ANXIETY Last administered on 04/12/17 00:19; Start 04/11/17 at 16:00 Amlodipine Besylate (Norvasc) 10 mg DAILY PO Last administered on 04/12/17 10: 52; Start 04/12/17 at 09:00 Atorvastatin Calcium (Lipitor) 10 mg QHS PO Last administered on 04/11/17 20: 08; Start 04/11/17 at 21:00 Acetaminophen/ Hydrocodone Bitart (Lortab 7.5/325) 1 tab PRN Q6HRS PRN PO PAIN Last administered on 04/12/17 00:19; Start 04/11/17 at 16:00 Pyridostigmine [place] (Mestinon) 60 mg QID PO Last administered on 04/12/17 10:51; Start 04/11/17 at 17:00 Bupropion HCl (Wellbutrin Xl) 300 mg DAILY PO Last administered on 04/12/17 10 :53; Start 04/12/17 at 09:00 Vitamin D (Vitamin D3) 1,000 unit DAILY PO Last administered on 04/12/17 10:52 ; Start 04/12/17 at 09:00 Duloxetine HCl (Cymbalta) 120 mg DAILY PO Last administered on 04/12/17 10:51 ; Start 04/12/17 at 09:00 Gabapentin (Neurontin) 300 mg TID PO Last administered on 04/12/17 10:51; Start 04/11/17 at 21:00 Losartan Potassium (Cozaar) 100 mg DAILY PO Last administered on 04/12/17 10: 52; Start 04/12/17 at 09:00 Diphenhydramine HCl (Benadryl) 25 mg PRN QHS PRN PO INSOMNIA; Start 04/11/17 at 16:15 Prednisone (Prednisone) 20 mg DAILY PO Last administered on 04/12/17 10:52; Start 04/11/17 at 17:15 Calcium Carbonate/ Glycine (Oscal) 500 mg TIDAFTMEAL PO ; Start 04/11/17 at 18: 00 Famotidine (Pepcid) 20 mg DAILY PO Last administered on 04/12/17 10:53; Start 04/12/17 at 09:00 Ergocalciferol (Vitamin D2) 50,000 unit QMTH PO ; Start 04/13/17 at 16:00 Heparin Sodium (Porcine) (Hep Lock Adult) 500 unit 1X ONCE IV Last administered on 04/11/17 17:28; Start 04/11/17 at 17:30; Stop 04/11/17 at 17:31 ; Status DC Heparin Sodium (Porcine) (Heparin Sodium) 2,000 unit 1X ONCE IV Last administered on 04/12/17 09:42; Start 04/12/17 at 08:45; Stop 04/12/17 at 08:46 ; Status DC Diphenhydramine HCl (Benadryl) 25 mg 1X PRN PRN IV ITCHING; Start 04/12/17 at 08:45; Stop 04/13/17 at 08:44 Diphenhydramine HCl (Benadryl) 25 mg 1X PRN PRN IV ITCHING; Start 04/12/17 at 08:45; Stop 04/13/17 at 08:44 Albumin Human 2,000 ml @ 0 mls/hr 1X ONCE IV ; Start 04/12/17 at 09:00; Stop 04/12/17 at 09:01; Status DC Active Scripts Active Hydrocodone-Apap 7.5-325 (Hydrocodone Bit/Acetaminophen) 1 Each Tablet 1 Tab PO PRN Q6HRS PRN Amlodipine Besylate 10 Mg Tablet 10 Mg PO DAILY Reported Mestinon (Pyridostigmine [place]) 60 Mg Tablet 60 Mg PO QID Cymbalta (Duloxetine Hcl) 60 Mg Capsule.dr 2 Cap PO DAILY Gabapentin 300 Mg Capsule 300 Mg PO TID Xanax (Alprazolam) 0.5 Mg Tablet 1 Mg PO PRN TID PRN Vitamin D-3 (Cholecalciferol (Vitamin D3)) 2,000 Unit Tablet 1,000 Unit PO DAILY06 Atorvastatin Calcium 10 Mg Tablet 10 Mg PO DAILY Losartan Potassium 100 Mg Tablet 100 Mg PO DAILY Bupropion Xl (Bupropion Hcl) 300 Mg Tab.er.24h 300 Mg PO DAILY Vitals/I & O Vital Sign - Last 24 Hours 04/11/17 04/11/17 04/11/17 04/11/17 14:26 15:34 16:04 16:34 Temp 97.7 97.7 Pulse 86 77 80 74 Resp 18 12 B/P (MAP) 138/66 (90) Pulse Ox 97 96 98 97 O2 Delivery Nasal Cannula O2 Flow Rate 2.0 04/11/17 04/11/17 04/11/17 04/11/17 17:04 18:18 18:29 19:30 Temp 97.7 97.7 Pulse 76 61 Resp 18 B/P (MAP) 135/62 (86) Pulse Ox 94 94 O2 Delivery Nasal Cannula Nasal Cannula Nasal Cannula O2 Flow Rate 2.0 2.0 2.0 04/11/17 04/11/17 04/11/17 04/11/17 19:30 19:45 20:00 20:15 Temp 97.9 97.9 Pulse 72 88 77 72 Resp 20 21 11 15 B/P (MAP) 141/68 (92) 152/72 (98) 149/70 (96) 125/68 (87) Pulse Ox 96 94 94 93 O2 Delivery Nasal Cannula Nasal Cannula Nasal Cannula Nasal Cannula O2 Flow Rate 2.0 2.0 2.0 2.0 04/11/17 04/11/17 04/12/17 04/12/17 21:00 23:00 00:00 00:19 Temp 98.1 98.1 Pulse 69 69 68 Resp 27 32 22 20 B/P (MAP) 123/55 (77) 142/69 (93) 149/64 (92) Pulse Ox 96 94 93 94 O2 Delivery Nasal Cannula Nasal Cannula Nasal Cannula Nasal Cannula O2 Flow Rate 2.0 2.0 2.0 2.0 04/12/17 04/12/17 04/12/17 04/12/17 01:00 01:20 02:00 03:00 Pulse 70 64 61 Resp 23 33 33 33 B/P (MAP) 141/71 (94) 113/58 (76) 101/57 (72) Pulse Ox 90 92 93 O2 Delivery Nasal Cannula Nasal Cannula Nasal Cannula Nasal Cannula O2 Flow Rate 2.0 2.0 2.0 2.0 04/12/17 04/12/17 04/12/17 04/12/17 04:21 05:00 07:00 08:00 Temp 98.3 98.3 Pulse 62 60 58 Resp 28 26 19 B/P (MAP) 111/58 (75) 107/62 (77) 115/58 (77) Pulse Ox 94 94 93 O2 Delivery Nasal Cannula Nasal Cannula Nasal Cannula Nasal Cannula O2 Flow Rate 2.0 2.0 2.0 2.0 04/12/17 04/12/17 04/12/17 04/12/17 08:00 09:00 10:00 10:52 Temp 98.1 98.1 Pulse 58 63 61 60 Resp 19 19 20 B/P (MAP) 121/66 (84) 144/68 (93) 121/84 (96) 134/70 Pulse Ox 97 92 95 O2 Delivery Nasal Cannula Nasal Cannula Nasal Cannula O2 Flow Rate 2.0 2.0 2.0 04/12/17 04/12/17 04/12/17 10:52 11:00 12:00 Temp 98.1 98.1 Pulse 60 68 64 Resp 17 19 B/P (MAP) 134/70 134/71 (92) 144/57 (86) Pulse Ox 98 96 O2 Delivery Nasal Cannula Nasal Cannula O2 Flow Rate 2.0 2.0 Intake and Output 04/12/17 04/12/17 04/13/17 15:00 23:00 07:00 Intake Total 350 ml Output Total 50 ml Balance 300 ml JEFFNIAL K III DO Apr 12, 2017 13:14
[2017-04-12] MEDS: ATORVASTATIN CALCIUM 10 MG TABLET. PO SCH (21:03)
--- NOTE | 2017-04-13 01:00 | CONS ---
DATE OF CONSULTATION: 04/12/2017 ATTENDING PHYSICIAN: Becca Gr M.D. REASON FOR CONSULTATION: The patient seen in pulmonary consultation at the request of Dr. Gr for increasing shortness of air. HISTORY OF PRESENT ILLNESS: The patient is a 66-year-old female that presented with increasing shortness of breath. She has a history of myasthenia gravis. During her last admission, she had acetylcholine receptor antibody titer of 71.9. She was discharged home on prednisone, apparently she was unable to obtain the prednisone. She represented with increasing shortness of breath, some diplopia or generalized weakness. She normally does not wear oxygen at home. She has never smoked, no history of asthma. The patient has been seen by the Neurology Service and restarted on her plasmapheresis. She is also currently on 20 mg of prednisone a day along with Mestinon. Her negative inspiratory force has been adequate and not decreasing. PAST MEDICAL HISTORY: Myasthenia gravis recently documented and recently diagnosed is also history of hyperlipidemia, pericarditis, status post pericardial window. This was felt to be related to a virus, obstructive sleep apnea, uses CPAP at home, peripheral neuropathy, depression, anxiety, lower back pain, urinary incontinence. She also has a history of basal cell carcinoma. ALLERGIES: PENICILLIN, SULFA AND CIPROFLOXACIN. PAST SURGICAL HISTORY: Status post appendectomy, arthroscopic surgery, total hip replacement, hysterectomy and pericardial window. CURRENT MEDICATION: List was reviewed. REVIEW OF SYSTEMS: As indicated above, otherwise, a 10-point system was reviewed and negative. SOCIAL HISTORY: The patient has never smoked. Denies any alcohol intake. CURRENT MEDICATIONS: List was reviewed. Please see the MRAD. PHYSICAL EXAMINATION: VITAL SIGNS: Since admission, she has been afebrile. She is currently on 2 L of oxygen supplementation, saturation greater than 92%. HEENT: Eyes, the sclerae were nonicteric. NECK: Jugular venous distention was not elevated. No lymphadenopathy. CHEST: Full expansion. LUNGS: Adequate airway flow, no wheezes. CARDIOVASCULAR: Regular rate and rhythm with S1, S2, no S3. ABDOMEN: Soft, nontender, nondistended. EXTREMITIES: No clubbing, cyanosis or edema. NEUROLOGIC: The patient was awake, alert, following commands. A detailed neuro exam was not performed. A chest x-ray was reviewed, no acute cardiopulmonary process. LABORATORY DATA: Reviewed. White count was normal. Hemoglobin and hematocrit were noted. Electrolytes were noted. Albumin upon admission was low. UA was noted to be normal. IMPRESSION: 1. Acute respiratory distress secondary to exacerbation of myasthenia gravis. 2. Exacerbation of myasthenia gravis. 3. Peripheral neuropathy. 4. Anxiety/depression. 5. Obstructive sleep apnea. PLAN: 1. We will continue monitoring negative inspiratory force on a daily basis. 2. The patient is to undergo plasmapheresis. 3. Respiratory status is compensated at this time. 4. Continue oxygen supplementation. 5. No need for antibiotics. I do appreciate the privilege in sharing in June's care. LYLA VÁZQUEZ MD DR: ALIDA/keyanna JOB#: [id number] / [id number]
[2017-04-13 03:01] VITALS: BP 131/69
[2017-04-13 04:07] LABS: BASO # 0.1 x10^3/uL (0.0-0.2); BASO % 1 % (0-3); EOS % 2 % (0-3); LYMPH % 31 % (24-48); MEAN CORPUSCULAR HEMOGLOBIN 26 pg (25-35); MEAN CORPUSCULAR HGB CONC 32 g/dL (31-37); MEAN CORPUSCULAR VOLUME 82 fL (79-100); MONO % 8 % (0-9); NEUT % 59 % (31-73); PLATELET COUNT 391 x10^3/uL (140-400); RED BLOOD COUNT 4.65 x10^6/uL (3.50-5.40); RED CELL DISTRIBUTION WIDTH 19.3 % (11.5-14.5); WHITE BLOOD COUNT 9.7 x10^3/uL (4.0-11.0)
[2017-04-13 04:16] LABS: INR 1.1 (0.8-1.1); PROTHROMBIN TIME PATIENT 13.7 SEC (11.7-14.0)
[2017-04-13 04:22] LABS: CALCIUM 9.4 mg/dL (8.5-10.1); CREATININE 0.6 mg/dL (0.6-1.0); GFR 99.7; POTASSIUM 3.3 mmol/L (3.5-5.1)
[2017-04-13 04:26] LABS: ALBUMIN 3.2 g/dL (3.4-5.0); MAGNESIUM 2.1 mg/dL (1.8-2.4)
[2017-04-13 06:55] VITALS: BP 136/68
[2017-04-13] MEDS ORDERED: ALBUMIN HUMAN 5% 1,500 ML IV ONE ×2 (09:00→15:30)
[2017-04-13] MEDS: predniSONE 20 MG TABLET PO SCH (09:11)
[2017-04-13] MEDS: DULoxetine HCL 30 MG CAPSULE.DR PO SCH (09:11)
[2017-04-13] MEDS: FAMOTIDINE 20 MG TABLET. PO SCH (09:12)
[2017-04-13] MEDS: buPROPion XL 150 MG TAB.ER.24H. PO SCH (09:12)
[2017-04-13] MEDS: GABAPENTIN 300 MG CAPSULE. PO SCH ×3 (09:12→20:22)
[2017-04-13] MEDS: amLODIPine BESYLATE 10 MG TABLET PO SCH (09:12)
[2017-04-13] MEDS: PYRIDOSTIGMINE BROMIDE 60 MG TABLET PO SCH ×4 (09:12→20:25)
[2017-04-13] MEDS: CHOLECALCIFEROL (VITAMIN D3) 1,000 UNIT TABLET PO SCH (09:13)
[2017-04-13] MEDS: LOSARTAN POTASSIUM 50 MG TABLET. PO SCH (09:13)
[2017-04-13] MEDS: CALCIUM CARBONATE 500 MG TABLET PO SCH ×3 (09:13→20:20)
[2017-04-13 10:26] VITALS: BP 123/55
--- NOTE | 2017-04-13 11:02 | PDOC ---
SUBJECTIVE ROS MG exacerbation Doing a little better OBJECTIVE Vital Signs Vital Signs Date Time Temp Pulse Resp B/P (MAP) Pulse Ox O2 Delivery O2 Flow Rate FiO2 04/13/17 10:26 97.5 68 17 123/55 (77) 97 Room Air 97.5 04/12/17 23:10 2.0 PHYSICAL EXAM Physical Exam General Appearance: Awake: Alert Oriented x 3 Neck: No JVD or JVP Chest: CTA Nilesh Heart: S1 S2 Abdomen - Soft NTND Extremities - No Edema DIAGNOSIS/ASSESSMENT Assessment & Plan MG - exacerbation - for TPE # 2 today Low K - Po supplementation low fibrinogen asfter TPE - will use FFP as ordered for todays TPE Problems: COMMENT/RELEVANT DATA Meds Current Medications Medications (Trade) Dose Ordered Sig/Priscila Start Time Stop Time Status Last Admin Dose Admin Acetaminophen/ Hydrocodone Bitart (Lortab 7.5/325) 1 tab PRN Q6HRS PRN 04/11/17 16:00 04/12/17 21:04 1 TAB Albumin Human 1,500 ml @ 0 mls/hr 1X ONCE 04/13/17 09:00 04/13/17 09:02 DC Alprazolam (Xanax) 1 mg PRN TID PRN 04/11/17 16:00 04/12/17 21:04 1 MG Amlodipine Besylate (Norvasc) 10 mg DAILY 04/12/17 09:00 04/13/17 09:12 10 MG Atorvastatin Calcium (Lipitor) 10 mg QHS 04/11/17 21:00 04/12/17 21:03 10 MG Bupropion HCl (Wellbutrin Xl) 300 mg DAILY 04/12/17 09:00 04/13/17 09:12 300 MG Calcium Carbonate/ Glycine (Oscal) 500 mg TIDAFTMEAL 04/11/17 18:00 04/13/17 09:13 500 MG Diphenhydramine HCl (Benadryl) 25 mg 1X PRN PRN 04/12/17 08:45 04/13/17 08:44 DC Duloxetine HCl (Cymbalta) 120 mg DAILY 04/12/17 09:00 04/13/17 09:11 120 MG Ergocalciferol (Vitamin D2) 50,000 unit QMTH 04/13/17 16:00 Famotidine (Pepcid) 20 mg DAILY 04/12/17 09:00 04/13/17 09:12 20 MG Gabapentin (Neurontin) 300 mg TID 04/11/17 21:00 04/13/17 09:12 300 MG Heparin Sodium (Porcine) (Hep Lock Adult) 500 unit 1X ONCE 04/11/17 17:30 04/11/17 17:31 DC 04/11/17 17:28 500 UNIT Heparin Sodium (Porcine) (Heparin Sodium) 2,000 unit 1X ONCE 04/13/17 09:00 04/13/17 09:02 DC Losartan Potassium (Cozaar) 100 mg DAILY 04/12/17 09:00 04/13/17 09:13 100 MG Magnesium Sulfate/ Dextrose 50 ml @ 25 mls/hr 1X ONCE 04/11/17 16:30 04/11/17 18:29 DC 04/11/17 16:36 25 MLS/HR Prednisone (Prednisone) 20 mg DAILY 04/11/17 17:15 04/13/17 09:11 20 MG Pyridostigmine [place] (Mestinon) 60 mg QID 04/11/17 17:00 04/13/17 09:12 60 MG Sodium Chloride 1,000 ml @ 100 mls/hr Q10H 04/11/17 15:07 04/12/17 01:06 DC 04/11/17 15:37 100 MLS/HR Vitamin D (Vitamin D3) 1,000 unit DAILY 04/12/17 09:00 04/13/17 09:13 1,000 UNIT Lab Laboratory Tests Test 04/13/17 03:30 White Blood Count 9.7 x10^3/uL (4.0-11.0) Red Blood Count 4.65 x10^6/uL (3.50-5.40) Hemoglobin 12.0 g/dL (12.0-15.5) Hematocrit 38.0 % (36.0-47.0) Mean Corpuscular Volume 82 fL (79-100) Mean Corpuscular Hemoglobin 26 pg (25-35) Mean Corpuscular Hemoglobin Concent 32 g/dL (31-37) Red Cell Distribution Width 19.3 % (11.5-14.5) Platelet Count 391 x10^3/uL (140-400) Neutrophils (%) (Auto) 59 % (31-73) Lymphocytes (%) (Auto) 31 % (24-48) Monocytes (%) (Auto) 8 % (0-9) Eosinophils (%) (Auto) 2 % (0-3) Basophils (%) (Auto) 1 % (0-3) Neutrophils # (Auto) 5.7 x10^3uL (1.8-7.7) Lymphocytes # (Auto) 3.0 x10^3/uL (1.0-4.8) Monocytes # (Auto) 0.7 x10^3/uL (0.0-1.1) Eosinophils # (Auto) 0.2 x10^3/uL (0.0-0.7) Basophils # (Auto) 0.1 x10^3/uL (0.0-0.2) Prothrombin Time 13.7 SEC (11.7-14.0) Prothromb Time International Ratio 1.1 (0.8-1.1) Activated Partial Thromboplast Time 34 SEC (24-38) Fibrinogen 161 mg/dL (200-440) Sodium Level 144 mmol/L (136-145) Potassium Level 3.3 mmol/L (3.5-5.1) Chloride Level 108 mmol/L (98-107) Carbon Dioxide Level 31 mmol/L (21-32) Anion Gap 5 (6-14) Blood Urea Nitrogen 19 mg/dL (7-20) Creatinine 0.6 mg/dL (0.6-1.0) Estimated GFR (Cockcroft-Gault) 99.7 Glucose Level 97 mg/dL (70-99) Calcium Level 9.4 mg/dL (8.5-10.1) Magnesium Level 2.1 mg/dL (1.8-2.4) Albumin 3.2 g/dL (3.4-5.0) OMI AMIN MD Apr 13, 2017 11:02
--- NOTE | 2017-04-13 13:18 | PDOC ---
PROGRESS NOTES Chief Complaint Chief Complaint 1. 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 2, OBEsity, HTN, etc - chronic stable 3. Normal Grief plan: fu with renal, neuro cont plasmaparesis x3ds, then decide cont steroid, mestinon replete K dvt , gi ppx PTOT History of Present Illness History of Present Illness ROS: no fever, chills, sob or chest pain weakness better after plasmaparesis, from 04/12 daily Vitals Vitals Vital Signs Date Time Temp Pulse Resp B/P (MAP) Pulse Ox O2 Delivery O2 Flow Rate FiO2 04/13/17 10:26 97.5 68 17 123/55 (77) 97 Room Air 97.5 04/12/17 23:10 2.0 Physical Exam General: Alert, Oriented X3, Cooperative, No acute distress, Other (down spirit ) Heart: Regular rate, Normal S1, Normal S2 Lungs: Clear Abdomen: Normal bowel sounds, Soft, No tenderness, No hepatosplenomegaly, No masses Extremities: No clubbing, No cyanosis, No edema, Normal pulses, No tenderness/ swelling Skin: No rashes, No breakdown, No significant lesion Labs LABS Laboratory Tests Test 04/13/17 03:30 White Blood Count 9.7 x10^3/uL (4.0-11.0) Red Blood Count 4.65 x10^6/uL (3.50-5.40) Hemoglobin 12.0 g/dL (12.0-15.5) Hematocrit 38.0 % (36.0-47.0) Mean Corpuscular Volume 82 fL (79-100) Mean Corpuscular Hemoglobin 26 pg (25-35) Mean Corpuscular Hemoglobin Concent 32 g/dL (31-37) Red Cell Distribution Width 19.3 % (11.5-14.5) Platelet Count 391 x10^3/uL (140-400) Neutrophils (%) (Auto) 59 % (31-73) Lymphocytes (%) (Auto) 31 % (24-48) Monocytes (%) (Auto) 8 % (0-9) Eosinophils (%) (Auto) 2 % (0-3) Basophils (%) (Auto) 1 % (0-3) Neutrophils # (Auto) 5.7 x10^3uL (1.8-7.7) Lymphocytes # (Auto) 3.0 x10^3/uL (1.0-4.8) Monocytes # (Auto) 0.7 x10^3/uL (0.0-1.1) Eosinophils # (Auto) 0.2 x10^3/uL (0.0-0.7) Basophils # (Auto) 0.1 x10^3/uL (0.0-0.2) Prothrombin Time 13.7 SEC (11.7-14.0) Prothromb Time International Ratio 1.1 (0.8-1.1) Activated Partial Thromboplast Time 34 SEC (24-38) Fibrinogen 161 mg/dL (200-440) Sodium Level 144 mmol/L (136-145) Potassium Level 3.3 mmol/L (3.5-5.1) Chloride Level 108 mmol/L (98-107) Carbon Dioxide Level 31 mmol/L (21-32) Anion Gap 5 (6-14) Blood Urea Nitrogen 19 mg/dL (7-20) Creatinine 0.6 mg/dL (0.6-1.0) Estimated GFR (Cockcroft-Gault) 99.7 Glucose Level 97 mg/dL (70-99) Calcium Level 9.4 mg/dL (8.5-10.1) Magnesium Level 2.1 mg/dL (1.8-2.4) Albumin 3.2 g/dL (3.4-5.0) Assessment and Plan Assessmemt and Plan Problems Medical Problems: (1) Respiratory depression Status: Acute Problems: Comment Review of Relevant I have reviewed the following items antonio (where applicable) has been applied. Labs Laboratory Tests Test 04/11/17 14:35 04/11/17 16:00 04/11/17 20:17 04/12/17 08:00 White Blood Count 11.2 x10^3/uL (4.0-11.0) Red Blood Count 4.86 x10^6/uL (3.50-5.40) Hemoglobin 12.4 g/dL (12.0-15.5) Hematocrit 39.2 % (36.0-47.0) Mean Corpuscular Volume 81 fL (79-100) Mean Corpuscular Hemoglobin 26 pg (25-35) Mean Corpuscular Hemoglobin Concent 32 g/dL (31-37) Red Cell Distribution Width 18.9 % (11.5-14.5) Platelet Count 452 x10^3/uL (140-400) Neutrophils (%) (Auto) 62 % (31-73) Lymphocytes (%) (Auto) 27 % (24-48) Monocytes (%) (Auto) 8 % (0-9) Eosinophils (%) (Auto) 2 % (0-3) Basophils (%) (Auto) 1 % (0-3) Neutrophils # (Auto) 6.9 x10^3uL (1.8-7.7) Lymphocytes # (Auto) 3.1 x10^3/uL (1.0-4.8) Monocytes # (Auto) 0.9 x10^3/uL (0.0-1.1) Eosinophils # (Auto) 0.3 x10^3/uL (0.0-0.7) Basophils # (Auto) 0.1 x10^3/uL (0.0-0.2) Sodium Level 143 mmol/L (136-145) 143 mmol/L (136-145) Potassium Level 3.5 mmol/L (3.5-5.1) 3.9 mmol/L (3.5-5.1) Chloride Level 106 mmol/L (98-107) 106 mmol/L (98-107) Carbon Dioxide Level 28 mmol/L (21-32) 31 mmol/L (21-32) Anion Gap 9 (6-14) 6 (6-14) Blood Urea Nitrogen 18 mg/dL (7-20) 13 mg/dL (7-20) Creatinine 0.7 mg/dL (0.6-1.0) 0.5 mg/dL (0.6-1.0) Estimated GFR (Cockcroft-Gault) 83.5 123.1 BUN/Creatinine Ratio 26 (6-20) Glucose Level 89 mg/dL (70-99) 96 mg/dL (70-99) Calcium Level 10.0 mg/dL (8.5-10.1) 9.6 mg/dL (8.5-10.1) Magnesium Level 1.7 mg/dL (1.8-2.4) 2.3 mg/dL (1.8-2.4) Total Bilirubin 0.2 mg/dL (0.2-1.0) Aspartate Amino Transf (AST/SGOT) 22 U/L (15-37) Alanine Aminotransferase (ALT/SGPT) 25 U/L (14-59) Alkaline Phosphatase 95 U/L (46-116) Total Protein 6.6 g/dL (6.4-8.2) Albumin 3.1 g/dL (3.4-5.0) 2.8 g/dL (3.4-5.0) Albumin/Globulin Ratio 0.9 (1.0-1.7) Urine Collection Type Unknown Urine Color Yellow Urine Clarity Clear Urine pH 6.5 Urine Specific [place] 1.020 Urine Protein Negative mg/dL (NEG-TRACE) Urine Glucose (UA) Negative mg/dL (NEG) Urine Ketones (Stick) Negative mg/dL (NEG) Urine Blood Negative (NEG) Urine Nitrite Negative (NEG) Urine Bilirubin Negative (NEG) Urine Urobilinogen Dipstick 0.2 mg/dL (0.2 mg/dL) Urine Leukocyte Esterase Negative (NEG) Urine RBC 0 /HPF (0-2) Urine WBC 1-4 /HPF (0-4) Urine Bacteria 0 /HPF (0-FEW) Urine Mucus Mod /LPF Nasal Screen MRSA (PCR) Negative (Negative) Prothrombin Time 13.2 SEC (11.7-14.0) Prothromb Time International Ratio 1.1 (0.8-1.1) Activated Partial Thromboplast Time 34 SEC (24-38) Fibrinogen 341 mg/dL (200-440) Test 04/13/17 03:30 White Blood Count 9.7 x10^3/uL (4.0-11.0) Red Blood Count 4.65 x10^6/uL (3.50-5.40) Hemoglobin 12.0 g/dL (12.0-15.5) Hematocrit 38.0 % (36.0-47.0) Mean Corpuscular Volume 82 fL (79-100) Mean Corpuscular Hemoglobin 26 pg (25-35) Mean Corpuscular Hemoglobin Concent 32 g/dL (31-37) Red Cell Distribution Width 19.3 % (11.5-14.5) Platelet Count 391 x10^3/uL (140-400) Neutrophils (%) (Auto) 59 % (31-73) Lymphocytes (%) (Auto) 31 % (24-48) Monocytes (%) (Auto) 8 % (0-9) Eosinophils (%) (Auto) 2 % (0-3) Basophils (%) (Auto) 1 % (0-3) Neutrophils # (Auto) 5.7 x10^3uL (1.8-7.7) Lymphocytes # (Auto) 3.0 x10^3/uL (1.0-4.8) Monocytes # (Auto) 0.7 x10^3/uL (0.0-1.1) Eosinophils # (Auto) 0.2 x10^3/uL (0.0-0.7) Basophils # (Auto) 0.1 x10^3/uL (0.0-0.2) Prothrombin Time 13.7 SEC (11.7-14.0) Prothromb Time International Ratio 1.1 (0.8-1.1) Activated Partial Thromboplast Time 34 SEC (24-38) Fibrinogen 161 mg/dL (200-440) Sodium Level 144 mmol/L (136-145) Potassium Level 3.3 mmol/L (3.5-5.1) Chloride Level 108 mmol/L (98-107) Carbon Dioxide Level 31 mmol/L (21-32) Anion Gap 5 (6-14) Blood Urea Nitrogen 19 mg/dL (7-20) Creatinine 0.6 mg/dL (0.6-1.0) Estimated GFR (Cockcroft-Gault) 99.7 Glucose Level 97 mg/dL (70-99) Calcium Level 9.4 mg/dL (8.5-10.1) Magnesium Level 2.1 mg/dL (1.8-2.4) Albumin 3.2 g/dL (3.4-5.0) Laboratory Tests Test 04/13/17 03:30 White Blood Count 9.7 x10^3/uL (4.0-11.0) Red Blood Count 4.65 x10^6/uL (3.50-5.40) Hemoglobin 12.0 g/dL (12.0-15.5) Hematocrit 38.0 % (36.0-47.0) Mean Corpuscular Volume 82 fL (79-100) Mean Corpuscular Hemoglobin 26 pg (25-35) Mean Corpuscular Hemoglobin Concent 32 g/dL (31-37) Red Cell Distribution Width 19.3 % (11.5-14.5) Platelet Count 391 x10^3/uL (140-400) Neutrophils (%) (Auto) 59 % (31-73) Lymphocytes (%) (Auto) 31 % (24-48) Monocytes (%) (Auto) 8 % (0-9) Eosinophils (%) (Auto) 2 % (0-3) Basophils (%) (Auto) 1 % (0-3) Neutrophils # (Auto) 5.7 x10^3uL (1.8-7.7) Lymphocytes # (Auto) 3.0 x10^3/uL (1.0-4.8) Monocytes # (Auto) 0.7 x10^3/uL (0.0-1.1) Eosinophils # (Auto) 0.2 x10^3/uL (0.0-0.7) Basophils # (Auto) 0.1 x10^3/uL (0.0-0.2) Prothrombin Time 13.7 SEC (11.7-14.0) Prothromb Time International Ratio 1.1 (0.8-1.1) Activated Partial Thromboplast Time 34 SEC (24-38) Fibrinogen 161 mg/dL (200-440) Sodium Level 144 mmol/L (136-145) Potassium Level 3.3 mmol/L (3.5-5.1) Chloride Level 108 mmol/L (98-107) Carbon Dioxide Level 31 mmol/L (21-32) Anion Gap 5 (6-14) Blood Urea Nitrogen 19 mg/dL (7-20) Creatinine 0.6 mg/dL (0.6-1.0) Estimated GFR (Cockcroft-Gault) 99.7 Glucose Level 97 mg/dL (70-99) Calcium Level 9.4 mg/dL (8.5-10.1) Magnesium Level 2.1 mg/dL (1.8-2.4) Albumin 3.2 g/dL (3.4-5.0) Medications Current Medications Pyridostigmine [place] (Mestinon) 60 mg 1X STAT PO Last administered on t 15:37; Start 04/11/17 at 15:08; Stop 04/11/17 at 15:09; Status DC Sodium Chloride 1,000 ml @ 100 mls/hr Q10H IV Last administered on 04/11/17 15:37; Start 04/11/17 at 15:07; Stop 04/12/17 at 01:06; Status DC Magnesium Sulfate/ Dextrose 50 ml @ 25 mls/hr 1X ONCE IV Last administered on 04/11/17 16:36; Start 04/11/17 at 16:30; Stop 04/11/17 at 18:29; Status DC Alprazolam (Xanax) 1 mg PRN TID PRN PO ANXIETY Last administered on 04/12/17 21:04; Start 04/11/17 at 16:00 Amlodipine Besylate (Norvasc) 10 mg DAILY PO Last administered on 04/13/17 09: 12; Start 04/12/17 at 09:00 Atorvastatin Calcium (Lipitor) 10 mg QHS PO Last administered on 04/12/17 21: 03; Start 04/11/17 at 21:00 Acetaminophen/ Hydrocodone Bitart (Lortab 7.5/325) 1 tab PRN Q6HRS PRN PO PAIN Last administered on 04/12/17 21:04; Start 04/11/17 at 16:00 Pyridostigmine [place] (Mestinon) 60 mg QID PO Last administered on 04/13/17 09:12; Start 04/11/17 at 17:00 Bupropion HCl (Wellbutrin Xl) 300 mg DAILY PO Last administered on 04/13/17 09 :12; Start 04/12/17 at 09:00 Vitamin D (Vitamin D3) 1,000 unit DAILY PO Last administered on 04/13/17 09:13 ; Start 04/12/17 at 09:00 Duloxetine HCl (Cymbalta) 120 mg DAILY PO Last administered on 04/13/17 09:11 ; Start 04/12/17 at 09:00 Gabapentin (Neurontin) 300 mg TID PO Last administered on 04/13/17 09:12; Start 04/11/17 at 21:00 Losartan Potassium (Cozaar) 100 mg DAILY PO Last administered on 04/13/17 09: 13; Start 04/12/17 at 09:00 Diphenhydramine HCl (Benadryl) 25 mg PRN QHS PRN PO INSOMNIA; Start 04/11/17 at 16:15 Prednisone (Prednisone) 20 mg DAILY PO Last administered on 04/13/17 09:11; Start 04/11/17 at 17:15 Calcium Carbonate/ Glycine (Oscal) 500 mg TIDAFTMEAL PO Last administered on 09:13; Start 04/11/17 at 18:00 Famotidine (Pepcid) 20 mg DAILY PO Last administered on 04/13/17 09:12; Start 04/12/17 at 09:00 Ergocalciferol (Vitamin D2) 50,000 unit QMTH PO ; Start 04/13/17 at 16:00 Heparin Sodium (Porcine) (Hep Lock Adult) 500 unit 1X ONCE IV Last administered on 04/11/17 17:28; Start 04/11/17 at 17:30; Stop 04/11/17 at 17:31 ; Status DC Heparin Sodium (Porcine) (Heparin Sodium) 2,000 unit 1X ONCE IV Last administered on 04/12/17 09:42; Start 04/12/17 at 08:45; Stop 04/12/17 at 08:46 ; Status DC Diphenhydramine HCl (Benadryl) 25 mg 1X PRN PRN IV ITCHING; Start 04/12/17 at 08:45; Stop 04/13/17 at 08:44; Status DC Diphenhydramine HCl (Benadryl) 25 mg 1X PRN PRN IV ITCHING; Start 04/12/17 at 08:45; Stop 04/13/17 at 08:44; Status DC Albumin Human 2,000 ml @ 0 mls/hr 1X ONCE IV ; Start 04/12/17 at 09:00; Stop 04/12/17 at 09:01; Status DC Albumin Human 1,500 ml @ 0 mls/hr 1X ONCE IV ; Start 04/13/17 at 09:00; Stop 04/13/17 at 09:02; Status DC Heparin Sodium (Porcine) (Heparin Sodium) 2,000 unit 1X ONCE IV ; Start at 09:00; Stop 04/13/17 at 09:02; Status DC Potassium Chloride (Klor-Con) 40 meq TID PO ; Start 04/13/17 at 14:00; Stop 03/21 at 09:01 Active Scripts Active Hydrocodone-Apap 7.5-325 (Hydrocodone Bit/Acetaminophen) 1 Each Tablet 1 Tab PO PRN Q6HRS PRN Amlodipine Besylate 10 Mg Tablet 10 Mg PO DAILY Reported Mestinon (Pyridostigmine [place]) 60 Mg Tablet 60 Mg PO QID Cymbalta (Duloxetine Hcl) 60 Mg Capsule.dr 2 Cap PO DAILY Gabapentin 300 Mg Capsule 300 Mg PO TID Xanax (Alprazolam) 0.5 Mg Tablet 1 Mg PO PRN TID PRN Vitamin D-3 (Cholecalciferol (Vitamin D3)) 2,000 Unit Tablet 1,000 Unit PO DAILY06 Atorvastatin Calcium 10 Mg Tablet 10 Mg PO DAILY Losartan Potassium 100 Mg Tablet 100 Mg PO DAILY Bupropion Xl (Bupropion Hcl) 300 Mg Tab.er.24h 300 Mg PO DAILY Vitals/I & O Vital Sign - Last 24 Hours 04/12/17 04/12/17 04/12/17 04/12/17 15:02 19:49 20:00 21:04 Temp 97.5 98.0 97.5 98.0 Pulse 74 74 Resp 18 16 18 B/P (MAP) 144/69 (94) 106/53 (70) Pulse Ox 96 95 95 O2 Delivery Nasal Cannula Room Air Nasal Cannula Nasal Cannula O2 Flow Rate 2.0 2.0 04/12/17 04/12/17 04/13/17 04/13/17 22:04 23:10 03:01 06:55 Temp 98.2 97.3 97.5 98.2 97.3 97.5 Pulse 69 59 62 Resp 17 16 20 18 B/P (MAP) 113/54 (73) 131/69 (89) 136/68 (90) Pulse Ox 95 92 99 97 O2 Delivery Nasal Cannula Nasal Cannula BiPAP/CPAP BiPAP/CPAP O2 Flow Rate 2.0 04/13/17 04/13/17 04/13/17 04/13/17 08:00 09:12 09:13 10:26 Temp 97.5 97.5 Pulse 62 62 68 Resp 17 B/P (MAP) 136/68 136/68 123/55 (77) Pulse Ox 97 O2 Delivery Room Air Room Air GIRISH BURT MD Apr 13, 2017 13:18
[2017-04-13 14:52] VITALS: BP 135/56
[2017-04-13] MEDS: POTASSIUM CHLORIDE 20 MEQ TABLET.ER. PO SCH ×2 (15:08→20:21)
--- NOTE | 2017-04-13 15:28 | PDOC ---
PROGRESS NOTES Assessment Problems Medical Problems: (1) Respiratory depression Status: Acute Myasthenia exacerbation, respiratory distress, also has diplopia and generalized weakness, but actually was doing well for over a week at home. Continues to improve Peripheral neuropathy Plan Prednisone 20 mg daily, continue after discharge, I asked patient to call me if for some reason she is not given a prednisone prescription this time Continue Mestinon She will get her 2nd plasma exchange today, and I will auto body customizer tomorrow morning to see if we can dispense with the 3rd treatment and send her home. Subjective Feels much better Objective Vital Signs Date Time Temp Pulse Resp B/P (MAP) Pulse Ox O2 Delivery O2 Flow Rate FiO2 04/13/17 14:52 98.3 50 20 135/56 (82) 96 Room Air 98.3 04/12/17 23:10 2.0 Intake and Output 04/14/17 07:00 Intake Total 700 ml Balance 700 ml Tube Feeding 700 ml # Voids 2 PHYSICAL EXAM Alert. Oriented to time, place and person. PERRL. EOMI. no longer has left lateral rectus weakness CN: no focal findings. Muscle tone: normal. Muscle strength: 4/5 DTR: 2+ Plantar reflex: flexor Gait: not examined in bed. Sensory exam: no abnormal findings. No cerebellar signs elicited. Review of Relevant I have reviewed the following items antonio (where applicable) has been applied. Labs Laboratory Tests Test 04/11/17 16:00 04/11/17 20:17 04/12/17 08:00 04/13/17 03:30 Urine Collection Type Unknown Urine Color Yellow Urine Clarity Clear Urine pH 6.5 Urine Specific [place] 1.020 Urine Protein Negative mg/dL (NEG-TRACE) Urine Glucose (UA) Negative mg/dL (NEG) Urine Ketones (Stick) Negative mg/dL (NEG) Urine Blood Negative (NEG) Urine Nitrite Negative (NEG) Urine Bilirubin Negative (NEG) Urine Urobilinogen Dipstick 0.2 mg/dL (0.2 mg/dL) Urine Leukocyte Esterase Negative (NEG) Urine RBC 0 /HPF (0-2) Urine WBC 1-4 /HPF (0-4) Urine Bacteria 0 /HPF (0-FEW) Urine Mucus Mod /LPF Nasal Screen MRSA (PCR) Negative (Negative) Prothrombin Time 13.2 SEC (11.7-14.0) 13.7 SEC (11.7-14.0) Prothromb Time International Ratio 1.1 (0.8-1.1) 1.1 (0.8-1.1) Activated Partial Thromboplast Time 34 SEC (24-38) 34 SEC (24-38) Fibrinogen 341 mg/dL (200-440) 161 mg/dL (200-440) Sodium Level 143 mmol/L (136-145) 144 mmol/L (136-145) Potassium Level 3.9 mmol/L (3.5-5.1) 3.3 mmol/L (3.5-5.1) Chloride Level 106 mmol/L (98-107) 108 mmol/L (98-107) Carbon Dioxide Level 31 mmol/L (21-32) 31 mmol/L (21-32) Anion Gap 6 (6-14) 5 (6-14) Blood Urea Nitrogen 13 mg/dL (7-20) 19 mg/dL (7-20) Creatinine 0.5 mg/dL (0.6-1.0) 0.6 mg/dL (0.6-1.0) Estimated GFR (Cockcroft-Gault) 123.1 99.7 Glucose Level 96 mg/dL (70-99) 97 mg/dL (70-99) Calcium Level 9.6 mg/dL (8.5-10.1) 9.4 mg/dL (8.5-10.1) Magnesium Level 2.3 mg/dL (1.8-2.4) 2.1 mg/dL (1.8-2.4) Albumin 2.8 g/dL (3.4-5.0) 3.2 g/dL (3.4-5.0) White Blood Count 9.7 x10^3/uL (4.0-11.0) Red Blood Count 4.65 x10^6/uL (3.50-5.40) Hemoglobin 12.0 g/dL (12.0-15.5) Hematocrit 38.0 % (36.0-47.0) Mean Corpuscular Volume 82 fL (79-100) Mean Corpuscular Hemoglobin 26 pg (25-35) Mean Corpuscular Hemoglobin Concent 32 g/dL (31-37) Red Cell Distribution Width 19.3 % (11.5-14.5) Platelet Count 391 x10^3/uL (140-400) Neutrophils (%) (Auto) 59 % (31-73) Lymphocytes (%) (Auto) 31 % (24-48) Monocytes (%) (Auto) 8 % (0-9) Eosinophils (%) (Auto) 2 % (0-3) Basophils (%) (Auto) 1 % (0-3) Neutrophils # (Auto) 5.7 x10^3uL (1.8-7.7) Lymphocytes # (Auto) 3.0 x10^3/uL (1.0-4.8) Monocytes # (Auto) 0.7 x10^3/uL (0.0-1.1) Eosinophils # (Auto) 0.2 x10^3/uL (0.0-0.7) Basophils # (Auto) 0.1 x10^3/uL (0.0-0.2) Laboratory Tests Test 04/13/17 03:30 White Blood Count 9.7 x10^3/uL (4.0-11.0) Red Blood Count 4.65 x10^6/uL (3.50-5.40) Hemoglobin 12.0 g/dL (12.0-15.5) Hematocrit 38.0 % (36.0-47.0) Mean Corpuscular Volume 82 fL (79-100) Mean Corpuscular Hemoglobin 26 pg (25-35) Mean Corpuscular Hemoglobin Concent 32 g/dL (31-37) Red Cell Distribution Width 19.3 % (11.5-14.5) Platelet Count 391 x10^3/uL (140-400) Neutrophils (%) (Auto) 59 % (31-73) Lymphocytes (%) (Auto) 31 % (24-48) Monocytes (%) (Auto) 8 % (0-9) Eosinophils (%) (Auto) 2 % (0-3) Basophils (%) (Auto) 1 % (0-3) Neutrophils # (Auto) 5.7 x10^3uL (1.8-7.7) Lymphocytes # (Auto) 3.0 x10^3/uL (1.0-4.8) Monocytes # (Auto) 0.7 x10^3/uL (0.0-1.1) Eosinophils # (Auto) 0.2 x10^3/uL (0.0-0.7) Basophils # (Auto) 0.1 x10^3/uL (0.0-0.2) Prothrombin Time 13.7 SEC (11.7-14.0) Prothromb Time International Ratio 1.1 (0.8-1.1) Activated Partial Thromboplast Time 34 SEC (24-38) Fibrinogen 161 mg/dL (200-440) Sodium Level 144 mmol/L (136-145) Potassium Level 3.3 mmol/L (3.5-5.1) Chloride Level 108 mmol/L (98-107) Carbon Dioxide Level 31 mmol/L (21-32) Anion Gap 5 (6-14) Blood Urea Nitrogen 19 mg/dL (7-20) Creatinine 0.6 mg/dL (0.6-1.0) Estimated GFR (Cockcroft-Gault) 99.7 Glucose Level 97 mg/dL (70-99) Calcium Level 9.4 mg/dL (8.5-10.1) Magnesium Level 2.1 mg/dL (1.8-2.4) Albumin 3.2 g/dL (3.4-5.0) Medications Current Medications Pyridostigmine [place] (Mestinon) 60 mg 1X STAT PO Last administered on 15:37; Start 04/11/17 at 15:08; Stop 04/11/17 at 15:09; Status DC Sodium Chloride 1,000 ml @ 100 mls/hr Q10H IV Last administered on 04/11/17 15:37; Start 04/11/17 at 15:07; Stop 04/12/17 at 01:06; Status DC Magnesium Sulfate/ Dextrose 50 ml @ 25 mls/hr 1X ONCE IV Last administered on 04/11/17 16:36; Start 04/11/17 at 16:30; Stop 04/11/17 at 18:29; Status DC Alprazolam (Xanax) 1 mg PRN TID PRN PO ANXIETY Last administered on 04/12/17 21:04; Start 04/11/17 at 16:00 Amlodipine Besylate (Norvasc) 10 mg DAILY PO Last administered on 04/13/17 09: 12; Start 04/12/17 at 09:00 Atorvastatin Calcium (Lipitor) 10 mg QHS PO Last administered on 04/12/17 21: 03; Start 04/11/17 at 21:00 Acetaminophen/ Hydrocodone Bitart (Lortab 7.5/325) 1 tab PRN Q6HRS PRN PO PAIN Last administered on 04/12/17 21:04; Start 04/11/17 at 16:00 Pyridostigmine [place] (Mestinon) 60 mg QID PO Last administered on 04/13/17 14:54; Start 04/11/17 at 17:00 Bupropion HCl (Wellbutrin Xl) 300 mg DAILY PO Last administered on 04/13/17 09 :12; Start 04/12/17 at 09:00 Vitamin D (Vitamin D3) 1,000 unit DAILY PO Last administered on 04/13/17 09:13 ; Start 04/12/17 at 09:00 Duloxetine HCl (Cymbalta) 120 mg DAILY PO Last administered on 04/13/17 09:11 ; Start 04/12/17 at 09:00 Gabapentin (Neurontin) 300 mg TID PO Last administered on 04/13/17 14:54; Start 04/11/17 at 21:00 Losartan Potassium (Cozaar) 100 mg DAILY PO Last administered on 04/13/17 09: 13; Start 04/12/17 at 09:00 Diphenhydramine HCl (Benadryl) 25 mg PRN QHS PRN PO INSOMNIA; Start 04/11/17 at 16:15 Prednisone (Prednisone) 20 mg DAILY PO Last administered on 04/13/17 09:11; Start 04/11/17 at 17:15 Calcium Carbonate/ Glycine (Oscal) 500 mg TIDAFTMEAL PO Last administered on 14:54; Start 04/11/17 at 18:00 Famotidine (Pepcid) 20 mg DAILY PO Last administered on 04/13/17 09:12; Start 04/12/17 at 09:00 Ergocalciferol (Vitamin D2) 50,000 unit QMTH PO ; Start 04/13/17 at 16:00 Heparin Sodium (Porcine) (Hep Lock Adult) 500 unit 1X ONCE IV Last administered on 04/11/17 17:28; Start 04/11/17 at 17:30; Stop 04/11/17 at 17:31 ; Status DC Heparin Sodium (Porcine) (Heparin Sodium) 2,000 unit 1X ONCE IV Last administered on 04/12/17 09:42; Start 04/12/17 at 08:45; Stop 04/12/17 at 08:46 ; Status DC Diphenhydramine HCl (Benadryl) 25 mg 1X PRN PRN IV ITCHING; Start 04/12/17 at 08:45; Stop 04/13/17 at 08:44; Status DC Diphenhydramine HCl (Benadryl) 25 mg 1X PRN PRN IV ITCHING; Start 04/12/17 at 08:45; Stop 04/13/17 at 08:44; Status DC Albumin Human 2,000 ml @ 0 mls/hr 1X ONCE IV ; Start 04/12/17 at 09:00; Stop 04/12/17 at 09:01; Status DC Albumin Human 1,500 ml @ 0 mls/hr 1X ONCE IV ; Start 04/13/17 at 09:00; Stop 04/13/17 at 09:02; Status DC Heparin Sodium (Porcine) (Heparin Sodium) 2,000 unit 1X ONCE IV ; Start at 09:00; Stop 04/13/17 at 09:02; Status DC Potassium Chloride (Klor-Con) 40 meq TID PO Last administered on 04/13/17 15: 08; Start 04/13/17 at 14:00; Stop 04/14/17 at 09:01 Albumin Human 1,500 ml @ 0 mls/hr 1X ONCE IV ; Start 04/13/17 at 15:30; Stop 04/13/17 at 15:31 Heparin Sodium (Porcine) (Heparin Sodium) 2,000 unit 1X ONCE IV ; Start at 15:30; Stop 04/13/17 at 15:31 Active Scripts Active Hydrocodone-Apap 7.5-325 (Hydrocodone Bit/Acetaminophen) 1 Each Tablet 1 Tab PO PRN Q6HRS PRN Amlodipine Besylate 10 Mg Tablet 10 Mg PO DAILY Reported Mestinon (Pyridostigmine [place]) 60 Mg Tablet 60 Mg PO QID Cymbalta (Duloxetine Hcl) 60 Mg Capsule.dr 2 Cap PO DAILY Gabapentin 300 Mg Capsule 300 Mg PO TID Xanax (Alprazolam) 0.5 Mg Tablet 1 Mg PO PRN TID PRN Vitamin D-3 (Cholecalciferol (Vitamin D3)) 2,000 Unit Tablet 1,000 Unit PO DAILY06 Atorvastatin Calcium 10 Mg Tablet 10 Mg PO DAILY Losartan Potassium 100 Mg Tablet 100 Mg PO DAILY Bupropion Xl (Bupropion Hcl) 300 Mg Tab.er.24h 300 Mg PO DAILY Vitals/I & O Vital Sign - Last 24 Hours 04/12/17 04/12/17 04/12/17 04/12/17 19:49 20:00 21:04 22:04 Temp 98.0 98.0 Pulse 74 Resp 16 18 17 B/P (MAP) 106/53 (70) Pulse Ox 95 95 95 O2 Delivery Room Air Nasal Cannula Nasal Cannula Nasal Cannula O2 Flow Rate 2.0 04/12/17 04/13/17 04/13/17 04/13/17 23:10 03:01 06:55 08:00 Temp 98.2 97.3 97.5 98.2 97.3 97.5 Pulse 69 59 62 Resp 16 20 18 B/P (MAP) 113/54 (73) 131/69 (89) 136/68 (90) Pulse Ox 92 99 97 O2 Delivery Nasal Cannula BiPAP/CPAP BiPAP/CPAP Room Air O2 Flow Rate 2.0 04/13/17 04/13/17 04/13/17 04/13/17 09:12 09:13 10:26 14:52 Temp 97.5 98.3 97.5 98.3 Pulse 62 62 68 50 Resp 17 20 B/P (MAP) 136/68 136/68 123/55 (77) 135/56 (82) Pulse Ox 97 96 O2 Delivery Room Air Room Air Intake and Output 04/13/17 04/13/17 04/14/17 15:00 23:00 07:00 Intake Total 700 ml Balance 700 ml KALLI FISHER MD Apr 13, 2017 15:28
[2017-04-13] MEDS: ERGOCALCIFEROL (VITAMIN D2) 50,000 UNIT CAPSULE. PO SCH (16:00)
[2017-04-13 19:22] VITALS: BP 108/54
[2017-04-13] MEDS: ATORVASTATIN CALCIUM 10 MG TABLET. PO SCH (20:22)
[2017-04-13] MEDS: ALPRAZolam 1 MG TABLET PO PRN (20:31)
[2017-04-13] MEDS: HYDROcodone/APAP 7.5/325MG 1 TAB TABLET PO PRN (20:32)
[2017-04-13 22:11] LABS: BASO # 0.1 x10^3/uL (0.0-0.2); BASO % 1 % (0-3); EOS % 1 % (0-3); HEMATOCRIT 39.7 % (36.0-47.0); HEMOGLOBIN 12.4 g/dL (12.0-15.5); LYMPH # 3.6 x10^3/uL (1.0-4.8); LYMPH % 28 % (24-48); MEAN CORPUSCULAR HEMOGLOBIN 25 pg (25-35); MEAN CORPUSCULAR HGB CONC 31 g/dL (31-37); MEAN CORPUSCULAR VOLUME 81 fL (79-100); MONO % 9 % (0-9); NEUT % 62 % (31-73); PLATELET COUNT 431 x10^3/uL (140-400); RED BLOOD COUNT 4.92 x10^6/uL (3.50-5.40); WHITE BLOOD COUNT 13.1 x10^3/uL (4.0-11.0)
[2017-04-13 22:20] LABS: INR 1.3 (0.8-1.1); PROTHROMBIN TIME PATIENT 15.1 SEC (11.7-14.0)
[2017-04-13 22:30] LABS: ALBUMIN 3.3 g/dL (3.4-5.0); ALBUMIN/GLOBULIN RATIO 1.9 (1.0-1.7); CALCIUM 8.7 mg/dL (8.5-10.1); CREATININE 0.7 mg/dL (0.6-1.0); GFR 83.5; POTASSIUM 3.7 mmol/L (3.5-5.1); TOTAL BILIRUBIN 0.2 mg/dL (0.2-1.0)
[2017-04-13 23:30] VITALS: BP 126/58
[2017-04-14] VITALS (13 sets, daily range): BP systolic 102–129; BP diastolic 42–69
[2017-04-14 05:20] LABS: BASO # 0.1 x10^3/uL (0.0-0.2); BASO % 1 % (0-3); EOS % 2 % (0-3); HEMOGLOBIN 12.5 g/dL (12.0-15.5); LYMPH # 3.6 x10^3/uL (1.0-4.8); LYMPH % 34 % (24-48); MEAN CORPUSCULAR HEMOGLOBIN 26 pg (25-35); MEAN CORPUSCULAR HGB CONC 32 g/dL (31-37); MEAN CORPUSCULAR VOLUME 81 fL (79-100); MONO % 9 % (0-9); NEUT % 55 % (31-73); PLATELET COUNT 408 x10^3/uL (140-400); RED BLOOD COUNT 4.83 x10^6/uL (3.50-5.40); RED CELL DISTRIBUTION WIDTH 18.8 % (11.5-14.5); WHITE BLOOD COUNT 10.6 x10^3/uL (4.0-11.0)
[2017-04-14 05:39] LABS: CALCIUM 9.3 mg/dL (8.5-10.1); CREATININE 0.6 mg/dL (0.6-1.0); GFR 99.7; POTASSIUM 3.6 mmol/L (3.5-5.1)
--- NOTE | 2017-04-14 09:13 | PDOC ---
PROGRESS NOTES Assessment Problems Medical Problems: (1) Respiratory depression Status: Acute Myasthenia exacerbation, respiratory distress, also has diplopia and generalized weakness, but actually was doing well for over a week at home. Continues to improve Peripheral neuropathy Plan Prednisone 20 mg daily, continue after discharge Continue Mestinon Proceed with the third of 3 plasma exchange treatments today, aim for discharge tomorrow. Subjective She feels much better but would like the third plasma exchange today. Objective Vital Signs Date Time Temp Pulse Resp B/P (MAP) Pulse Ox O2 Delivery O2 Flow Rate FiO2 04/14/17 08:26 Room Air 2.0 04/14/17 07:00 96.6 63 18 116/68 (84) 96 96.6 PHYSICAL EXAM Alert. Oriented to time, place and person. PERRL. EOMI. no longer has left lateral rectus weakness CN: Slight right ptosis, no other focal findings. Muscle tone: normal. Muscle strength: 4/5 DTR: 2+ Plantar reflex: flexor Gait: not examined in bed. Sensory exam: no abnormal findings. No cerebellar signs elicited. Review of Relevant I have reviewed the following items antonio (where applicable) has been applied. Labs Laboratory Tests Test 04/13/17 03:30 04/13/17 20:30 04/14/17 03:42 White Blood Count 9.7 x10^3/uL (4.0-11.0) 13.1 x10^3/uL (4.0-11.0) 10.6 x10^3/uL (4.0-11.0) Red Blood Count 4.65 x10^6/uL (3.50-5.40) 4.92 x10^6/uL (3.50-5.40) 4.83 x10^6/uL (3.50-5.40) Hemoglobin 12.0 g/dL (12.0-15.5) 12.4 g/dL (12.0-15.5) 12.5 g/dL (12.0-15.5) Hematocrit 38.0 % (36.0-47.0) 39.7 % (36.0-47.0) 39.0 % (36.0-47.0) Mean Corpuscular Volume 82 fL (79-100) 81 fL (79-100) 81 fL (79-100) Mean Corpuscular Hemoglobin 26 pg (25-35) 25 pg (25-35) 26 pg (25-35) Mean Corpuscular Hemoglobin Concent 32 g/dL (31-37) 31 g/dL (31-37) 32 g/dL (31-37) Red Cell Distribution Width 19.3 % (11.5-14.5) 19.0 % (11.5-14.5) 18.8 % (11.5-14.5) Platelet Count 391 x10^3/uL (140-400) 431 x10^3/uL (140-400) 408 x10^3/uL (140-400) Neutrophils (%) (Auto) 59 % (31-73) 62 % (31-73) 55 % (31-73) Lymphocytes (%) (Auto) 31 % (24-48) 28 % (24-48) 34 % (24-48) Monocytes (%) (Auto) 8 % (0-9) 9 % (0-9) 9 % (0-9) Eosinophils (%) (Auto) 2 % (0-3) 1 % (0-3) 2 % (0-3) Basophils (%) (Auto) 1 % (0-3) 1 % (0-3) 1 % (0-3) Neutrophils # (Auto) 5.7 x10^3uL (1.8-7.7) 8.1 x10^3uL (1.8-7.7) 5.8 x10^3uL (1.8-7.7) Lymphocytes # (Auto) 3.0 x10^3/uL (1.0-4.8) 3.6 x10^3/uL (1.0-4.8) 3.6 x10^3/uL (1.0-4.8) Monocytes # (Auto) 0.7 x10^3/uL (0.0-1.1) 1.2 x10^3/uL (0.0-1.1) 1.0 x10^3/uL (0.0-1.1) Eosinophils # (Auto) 0.2 x10^3/uL (0.0-0.7) 0.1 x10^3/uL (0.0-0.7) 0.2 x10^3/uL (0.0-0.7) Basophils # (Auto) 0.1 x10^3/uL (0.0-0.2) 0.1 x10^3/uL (0.0-0.2) 0.1 x10^3/uL (0.0-0.2) Prothrombin Time 13.7 SEC (11.7-14.0) 15.1 SEC (11.7-14.0) Prothromb Time International Ratio 1.1 (0.8-1.1) 1.3 (0.8-1.1) Activated Partial Thromboplast Time 34 SEC (24-38) 32 SEC (24-38) Fibrinogen 161 mg/dL (200-440) 127 mg/dL (200-440) Sodium Level 144 mmol/L (136-145) 144 mmol/L (136-145) 146 mmol/L (136-145) Potassium Level 3.3 mmol/L (3.5-5.1) 3.7 mmol/L (3.5-5.1) 3.6 mmol/L (3.5-5.1) Chloride Level 108 mmol/L (98-107) 110 mmol/L (98-107) 110 mmol/L (98-107) Carbon Dioxide Level 31 mmol/L (21-32) 27 mmol/L (21-32) 33 mmol/L (21-32) Anion Gap 5 (6-14) 7 (6-14) 3 (6-14) Blood Urea Nitrogen 19 mg/dL (7-20) 14 mg/dL (7-20) 16 mg/dL (7-20) Creatinine 0.6 mg/dL (0.6-1.0) 0.7 mg/dL (0.6-1.0) 0.6 mg/dL (0.6-1.0) Estimated GFR (Cockcroft-Gault) 99.7 83.5 99.7 Glucose Level 97 mg/dL (70-99) 88 mg/dL (70-99) 86 mg/dL (70-99) Calcium Level 9.4 mg/dL (8.5-10.1) 8.7 mg/dL (8.5-10.1) 9.3 mg/dL (8.5-10.1) Magnesium Level 2.1 mg/dL (1.8-2.4) Albumin 3.2 g/dL (3.4-5.0) 3.3 g/dL (3.4-5.0) BUN/Creatinine Ratio 20 (6-20) Total Bilirubin 0.2 mg/dL (0.2-1.0) Aspartate Amino Transf (AST/SGOT) 12 U/L (15-37) Alanine Aminotransferase (ALT/SGPT) 17 U/L (14-59) Alkaline Phosphatase 64 U/L (46-116) Total Protein 5.0 g/dL (6.4-8.2) Albumin/Globulin Ratio 1.9 (1.0-1.7) Laboratory Tests Test 04/13/17 20:30 04/14/17 03:42 White Blood Count 13.1 x10^3/uL (4.0-11.0) 10.6 x10^3/uL (4.0-11.0) Red Blood Count 4.92 x10^6/uL (3.50-5.40) 4.83 x10^6/uL (3.50-5.40) Hemoglobin 12.4 g/dL (12.0-15.5) 12.5 g/dL (12.0-15.5) Hematocrit 39.7 % (36.0-47.0) 39.0 % (36.0-47.0) Mean Corpuscular Volume 81 fL (79-100) 81 fL (79-100) Mean Corpuscular Hemoglobin 25 pg (25-35) 26 pg (25-35) Mean Corpuscular Hemoglobin Concent 31 g/dL (31-37) 32 g/dL (31-37) Red Cell Distribution Width 19.0 % (11.5-14.5) 18.8 % (11.5-14.5) Platelet Count 431 x10^3/uL (140-400) 408 x10^3/uL (140-400) Neutrophils (%) (Auto) 62 % (31-73) 55 % (31-73) Lymphocytes (%) (Auto) 28 % (24-48) 34 % (24-48) Monocytes (%) (Auto) 9 % (0-9) 9 % (0-9) Eosinophils (%) (Auto) 1 % (0-3) 2 % (0-3) Basophils (%) (Auto) 1 % (0-3) 1 % (0-3) Neutrophils # (Auto) 8.1 x10^3uL (1.8-7.7) 5.8 x10^3uL (1.8-7.7) Lymphocytes # (Auto) 3.6 x10^3/uL (1.0-4.8) 3.6 x10^3/uL (1.0-4.8) Monocytes # (Auto) 1.2 x10^3/uL (0.0-1.1) 1.0 x10^3/uL (0.0-1.1) Eosinophils # (Auto) 0.1 x10^3/uL (0.0-0.7) 0.2 x10^3/uL (0.0-0.7) Basophils # (Auto) 0.1 x10^3/uL (0.0-0.2) 0.1 x10^3/uL (0.0-0.2) Prothrombin Time 15.1 SEC (11.7-14.0) Prothromb Time International Ratio 1.3 (0.8-1.1) Activated Partial Thromboplast Time 32 SEC (24-38) Fibrinogen 127 mg/dL (200-440) Sodium Level 144 mmol/L (136-145) 146 mmol/L (136-145) Potassium Level 3.7 mmol/L (3.5-5.1) 3.6 mmol/L (3.5-5.1) Chloride Level 110 mmol/L (98-107) 110 mmol/L (98-107) Carbon Dioxide Level 27 mmol/L (21-32) 33 mmol/L (21-32) Anion Gap 7 (6-14) 3 (6-14) Blood Urea Nitrogen 14 mg/dL (7-20) 16 mg/dL (7-20) Creatinine 0.7 mg/dL (0.6-1.0) 0.6 mg/dL (0.6-1.0) Estimated GFR (Cockcroft-Gault) 83.5 99.7 BUN/Creatinine Ratio 20 (6-20) Glucose Level 88 mg/dL (70-99) 86 mg/dL (70-99) Calcium Level 8.7 mg/dL (8.5-10.1) 9.3 mg/dL (8.5-10.1) Total Bilirubin 0.2 mg/dL (0.2-1.0) Aspartate Amino Transf (AST/SGOT) 12 U/L (15-37) Alanine Aminotransferase (ALT/SGPT) 17 U/L (14-59) Alkaline Phosphatase 64 U/L (46-116) Total Protein 5.0 g/dL (6.4-8.2) Albumin 3.3 g/dL (3.4-5.0) Albumin/Globulin Ratio 1.9 (1.0-1.7) Medications Current Medications Pyridostigmine [place] (Mestinon) 60 mg 1X STAT PO Last administered on 15:37; Start 04/11/17 at 15:08; Stop 04/11/17 at 15:09; Status DC Sodium Chloride 1,000 ml @ 100 mls/hr Q10H IV Last administered on 04/11/17 15:37; Start 04/11/17 at 15:07; Stop 04/12/17 at 01:06; Status DC Magnesium Sulfate/ Dextrose 50 ml @ 25 mls/hr 1X ONCE IV Last administered on 04/11/17 16:36; Start 04/11/17 at 16:30; Stop 04/11/17 at 18:29; Status DC Alprazolam (Xanax) 1 mg PRN TID PRN PO ANXIETY Last administered on 04/13/17 20:31; Start 04/11/17 at 16:00 Amlodipine Besylate (Norvasc) 10 mg DAILY PO Last administered on 04/13/17 09: 12; Start 04/12/17 at 09:00 Atorvastatin Calcium (Lipitor) 10 mg QHS PO Last administered on 04/13/17 20: 22; Start 04/11/17 at 21:00 Acetaminophen/ Hydrocodone Bitart (Lortab 7.5/325) 1 tab PRN Q6HRS PRN PO PAIN Last administered on 04/13/17 20:32; Start 04/11/17 at 16:00 Pyridostigmine [place] (Mestinon) 60 mg QID PO Last administered on 04/13/17 20:25; Start 04/11/17 at 17:00 Bupropion HCl (Wellbutrin Xl) 300 mg DAILY PO Last administered on 04/13/17 09 :12; Start 04/12/17 at 09:00 Vitamin D (Vitamin D3) 1,000 unit DAILY PO Last administered on 04/13/17 09:13 ; Start 04/12/17 at 09:00 Duloxetine HCl (Cymbalta) 120 mg DAILY PO Last administered on 04/13/17 09:11 ; Start 04/12/17 at 09:00 Gabapentin (Neurontin) 300 mg TID PO Last administered on 04/13/17 20:22; Start 04/11/17 at 21:00 Losartan Potassium (Cozaar) 100 mg DAILY PO Last administered on 04/13/17 09: 13; Start 04/12/17 at 09:00 Diphenhydramine HCl (Benadryl) 25 mg PRN QHS PRN PO INSOMNIA; Start 04/11/17 at 16:15 Prednisone (Prednisone) 20 mg DAILY PO Last administered on 04/13/17 09:11; Start 04/11/17 at 17:15 Calcium Carbonate/ Glycine (Oscal) 500 mg TIDAFTMEAL PO Last administered on 20:20; Start 04/11/17 at 18:00 Famotidine (Pepcid) 20 mg DAILY PO Last administered on 04/13/17 09:12; Start 04/12/17 at 09:00 Ergocalciferol (Vitamin D2) 50,000 unit QMTH PO ; Start 04/13/17 at 16:00 Heparin Sodium (Porcine) (Hep Lock Adult) 500 unit 1X ONCE IV Last administered on 04/11/17 17:28; Start 04/11/17 at 17:30; Stop 04/11/17 at 17:31 ; Status DC Heparin Sodium (Porcine) (Heparin Sodium) 2,000 unit 1X ONCE IV Last administered on 04/12/17 09:42; Start 04/12/17 at 08:45; Stop 04/12/17 at 08:46 ; Status DC Diphenhydramine HCl (Benadryl) 25 mg 1X PRN PRN IV ITCHING; Start 04/12/17 at 08:45; Stop 04/13/17 at 08:44; Status DC Diphenhydramine HCl (Benadryl) 25 mg 1X PRN PRN IV ITCHING; Start 04/12/17 at 08:45; Stop 04/13/17 at 08:44; Status DC Albumin Human 2,000 ml @ 0 mls/hr 1X ONCE IV ; Start 04/12/17 at 09:00; Stop 04/12/17 at 09:01; Status DC Albumin Human 1,500 ml @ 0 mls/hr 1X ONCE IV ; Start 04/13/17 at 09:00; Stop 04/13/17 at 09:02; Status DC Heparin Sodium (Porcine) (Heparin Sodium) 2,000 unit 1X ONCE IV ; Start at 09:00; Stop 04/13/17 at 09:02; Status DC Potassium Chloride (Klor-Con) 40 meq TID PO Last administered on 04/13/17 20: 21; Start 04/13/17 at 14:00; Stop 04/14/17 at 09:01; Status DC Albumin Human 1,500 ml @ 0 mls/hr 1X ONCE IV Last administered on 04/13/17 17:53; Start 04/13/17 at 15:30; Stop 04/13/17 at 15:31; Status DC Heparin Sodium (Porcine) (Heparin Sodium) 2,000 unit 1X ONCE IV Last administered on 04/13/17 17:51; Start 04/13/17 at 15:30; Stop 04/13/17 at 15:31 ; Status DC Active Scripts Active Hydrocodone-Apap 7.5-325 (Hydrocodone Bit/Acetaminophen) 1 Each Tablet 1 Tab PO PRN Q6HRS PRN Amlodipine Besylate 10 Mg Tablet 10 Mg PO DAILY Reported [place] (Pyridostigmine [place]) 60 Mg Tablet 60 Mg PO QID Cymbalta (Duloxetine Hcl) 60 Mg Capsule.dr 2 Cap PO DAILY Gabapentin 300 Mg Capsule 300 Mg PO TID Xanax (Alprazolam) 0.5 Mg Tablet 1 Mg PO PRN TID PRN Vitamin D-3 (Cholecalciferol (Vitamin D3)) 2,000 Unit Tablet 1,000 Unit PO DAILY06 Atorvastatin Calcium 10 Mg Tablet 10 Mg PO DAILY Losartan Potassium 100 Mg Tablet 100 Mg PO DAILY Bupropion Xl (Bupropion Hcl) 300 Mg Tab.er.24h 300 Mg PO DAILY Vitals/I & O Vital Sign - Last 24 Hours 04/13/17 04/13/17 04/13/17 04/13/17 09:13 10:26 14:52 19:22 Temp 97.5 98.3 97.9 97.5 98.3 97.9 Pulse 62 68 50 82 Resp 17 20 18 B/P (MAP) 136/68 123/55 (77) 135/56 (82) 108/54 (72) Pulse Ox 97 96 95 O2 Delivery Room Air Room Air Nasal Cannula O2 Flow Rate 2.0 04/13/17 04/13/17 04/13/17 04/13/17 20:00 20:32 21:47 23:30 Temp 97.7 97.7 Pulse 72 Resp 16 18 B/P (MAP) 126/58 (80) Pulse Ox 95 95 97 O2 Delivery Room Air Room Air Room Air Room Air 04/14/17 04/14/17 04/14/17 03:37 07:00 08:26 Temp 97.6 96.6 97.6 96.6 Pulse 66 63 Resp 18 18 B/P (MAP) 124/61 (82) 116/68 (84) Pulse Ox 97 96 O2 Delivery BiPAP/CPAP BiPAP/CPAP Room Air O2 Flow Rate 2.0 KALLI FISHER MD Apr 14, 2017 09:13
[2017-04-14] MEDS: CHOLECALCIFEROL (VITAMIN D3) 1,000 UNIT TABLET PO SCH (09:39)
[2017-04-14] MEDS: PYRIDOSTIGMINE BROMIDE 60 MG TABLET PO SCH ×4 (09:39→20:58)
[2017-04-14] MEDS: LOSARTAN POTASSIUM 50 MG TABLET. PO SCH (09:40)
[2017-04-14] MEDS: CALCIUM CARBONATE 500 MG TABLET PO SCH ×3 (09:40→18:28)
[2017-04-14] MEDS: DULoxetine HCL 30 MG CAPSULE.DR PO SCH (09:41)
[2017-04-14] MEDS: amLODIPine BESYLATE 10 MG TABLET PO SCH (09:41)
[2017-04-14] MEDS: POTASSIUM CHLORIDE 20 MEQ TABLET.ER. PO SCH (09:41)
[2017-04-14] MEDS: FAMOTIDINE 20 MG TABLET. PO SCH (09:41)
[2017-04-14] MEDS: GABAPENTIN 300 MG CAPSULE. PO SCH ×3 (09:42→20:59)
[2017-04-14] MEDS: predniSONE 20 MG TABLET PO SCH (09:42)
[2017-04-14] MEDS: buPROPion XL 150 MG TAB.ER.24H. PO SCH (09:42)
[2017-04-14] MEDS ORDERED: ALBUMIN HUMAN 5% 2,000 ML IV ONE (11:15)
--- NOTE | 2017-04-14 12:09 | PDOC ---
SUBJECTIVE ROS MG exac For TPE later today OBJECTIVE Vital Signs Vital Signs Date Time Temp Pulse Resp B/P (MAP) Pulse Ox O2 Delivery O2 Flow Rate FiO2 04/14/17 09:41 63 116/68 04/14/17 08:26 Room Air 2.0 04/14/17 07:00 96.6 18 96 96.6 PHYSICAL EXAM Physical Exam General Appearance: Awake: Alert Oriented x 3 Neck: No JVD or JVP Chest: CTA N[place]h Heart: S1 S2 Abdomen - Soft NTND Extremities - No Edema DIAGNOSIS/ASSESSMENT Assessment & Plan MG - exacerbation - for TPE # 3 today Low K - Po supplementation as ordered low fibrinogen asfter TPE - will use FFP as ordered for todays TPE again COMMENT/RELEVANT DATA Meds Current Medications Medications (Trade) Dose Ordered Sig/Priscila Start Time Stop Time Status Last Admin Dose Admin Acetaminophen/ Hydrocodone Bitart (Lortab 7.5/325) 1 tab PRN Q6HRS PRN 04/11/17 16:00 04/13/17 20:32 1 TAB Albumin Human 2,000 ml @ 125 mls/hr 1X ONCE 04/14/17 11:15 04/15/17 03:14 Alprazolam (Xanax) 1 mg PRN TID PRN 04/11/17 16:00 04/13/17 20:31 1 MG Amlodipine Besylate (Norvasc) 10 mg DAILY 04/12/17 09:00 04/14/17 09:41 10 MG Atorvastatin Calcium (Lipitor) 10 mg QHS 04/11/17 21:00 04/13/17 20:22 10 MG Bupropion HCl (Wellbutrin Xl) 300 mg DAILY 04/12/17 09:00 04/14/17 09:42 300 MG Calcium Carbonate/ Glycine (Oscal) 500 mg TIDAFTMEAL 04/11/17 18:00 04/14/17 09:40 500 MG Diphenhydramine HCl (Benadryl) 25 mg 1X PRN PRN 04/12/17 08:45 04/13/17 08:44 DC Duloxetine HCl (Cymbalta) 120 mg DAILY 04/12/17 09:00 04/14/17 09:41 120 MG Ergocalciferol (Vitamin D2) 50,000 unit QMTH 04/13/17 16:00 Famotidine (Pepcid) 20 mg DAILY 04/12/17 09:00 04/14/17 09:41 20 MG Gabapentin (Neurontin) 300 mg TID 04/11/17 21:00 04/14/17 09:42 300 MG Heparin Sodium (Porcine) (Hep Lock Adult) 500 unit 1X ONCE 04/11/17 17:30 04/11/17 17:31 DC 04/11/17 17:28 500 UNIT Heparin Sodium (Porcine) (Heparin Sodium) 2,000 unit 1X ONCE 04/13/17 15:30 04/13/17 15:31 DC 04/13/17 17:51 2,000 UNIT Losartan Potassium (Cozaar) 100 mg DAILY 04/12/17 09:00 04/14/17 09:40 100 MG Magnesium Sulfate/ Dextrose 50 ml @ 25 mls/hr 1X ONCE 04/11/17 16:30 04/11/17 18:29 DC 04/11/17 16:36 25 MLS/HR Potassium Chloride (Klor-Con) 40 meq TID 04/13/17 14:00 04/14/17 09:01 DC 04/14/17 09:41 40 MEQ Prednisone (Prednisone) 20 mg DAILY 04/11/17 17:15 04/14/17 09:42 20 MG Pyridostigmine [place] (Mestinon) 60 mg QID 04/11/17 17:00 04/14/17 09:39 60 MG Sodium Chloride 1,000 ml @ 100 mls/hr Q10H 04/11/17 15:07 04/12/17 01:06 DC 04/11/17 15:37 100 MLS/HR Vitamin D (Vitamin D3) 1,000 unit DAILY 04/12/17 09:00 04/14/17 09:39 1,000 UNIT Lab Laboratory Tests Test 04/13/17 20:30 04/14/17 03:42 White Blood Count 13.1 x10^3/uL (4.0-11.0) 10.6 x10^3/uL (4.0-11.0) Red Blood Count 4.92 x10^6/uL (3.50-5.40) 4.83 x10^6/uL (3.50-5.40) Hemoglobin 12.4 g/dL (12.0-15.5) 12.5 g/dL (12.0-15.5) Hematocrit 39.7 % (36.0-47.0) 39.0 % (36.0-47.0) Mean Corpuscular Volume 81 fL (79-100) 81 fL (79-100) Mean Corpuscular Hemoglobin 25 pg (25-35) 26 pg (25-35) Mean Corpuscular Hemoglobin Concent 31 g/dL (31-37) 32 g/dL (31-37) Red Cell Distribution Width 19.0 % (11.5-14.5) 18.8 % (11.5-14.5) Platelet Count 431 x10^3/uL (140-400) 408 x10^3/uL (140-400) Neutrophils (%) (Auto) 62 % (31-73) 55 % (31-73) Lymphocytes (%) (Auto) 28 % (24-48) 34 % (24-48) Monocytes (%) (Auto) 9 % (0-9) 9 % (0-9) Eosinophils (%) (Auto) 1 % (0-3) 2 % (0-3) Basophils (%) (Auto) 1 % (0-3) 1 % (0-3) Neutrophils # (Auto) 8.1 x10^3uL (1.8-7.7) 5.8 x10^3uL (1.8-7.7) Lymphocytes # (Auto) 3.6 x10^3/uL (1.0-4.8) 3.6 x10^3/uL (1.0-4.8) Monocytes # (Auto) 1.2 x10^3/uL (0.0-1.1) 1.0 x10^3/uL (0.0-1.1) Eosinophils # (Auto) 0.1 x10^3/uL (0.0-0.7) 0.2 x10^3/uL (0.0-0.7) Basophils # (Auto) 0.1 x10^3/uL (0.0-0.2) 0.1 x10^3/uL (0.0-0.2) Prothrombin Time 15.1 SEC (11.7-14.0) Prothromb Time International Ratio 1.3 (0.8-1.1) Activated Partial Thromboplast Time 32 SEC (24-38) Fibrinogen 127 mg/dL (200-440) Sodium Level 144 mmol/L (136-145) 146 mmol/L (136-145) Potassium Level 3.7 mmol/L (3.5-5.1) 3.6 mmol/L (3.5-5.1) Chloride Level 110 mmol/L (98-107) 110 mmol/L (98-107) Carbon Dioxide Level 27 mmol/L (21-32) 33 mmol/L (21-32) Anion Gap 7 (6-14) 3 (6-14) Blood Urea Nitrogen 14 mg/dL (7-20) 16 mg/dL (7-20) Creatinine 0.7 mg/dL (0.6-1.0) 0.6 mg/dL (0.6-1.0) Estimated GFR (Cockcroft-Gault) 83.5 99.7 BUN/Creatinine Ratio 20 (6-20) Glucose Level 88 mg/dL (70-99) 86 mg/dL (70-99) Calcium Level 8.7 mg/dL (8.5-10.1) 9.3 mg/dL (8.5-10.1) Total Bilirubin 0.2 mg/dL (0.2-1.0) Aspartate Amino Transf (AST/SGOT) 12 U/L (15-37) Alanine Aminotransferase (ALT/SGPT) 17 U/L (14-59) Alkaline Phosphatase 64 U/L (46-116) Total Protein 5.0 g/dL (6.4-8.2) Albumin 3.3 g/dL (3.4-5.0) Albumin/Globulin Ratio 1.9 (1.0-1.7) OMI AMIN MD Apr 14, 2017 12:09
--- NOTE | 2017-04-14 13:50 | PDOC ---
PROGRESS NOTES Chief Complaint Chief Complaint 1. 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 2, OBEsity, HTN, etc - chronic stable 3. Normal Grief plan: fu with renal, neuro cont plasmapharesis x3ds, then decide cont steroid, mestinon replete K dvt , gi ppx PTOT dc tmr if weakness better and no plasma exchange History of Present Illness History of Present Illness ROS: no fever, chills, sob or chest pain weakness better after plasmaparesis, from 04/12 daily Vitals Vitals Vital Signs Date Time Temp Pulse Resp B/P (MAP) Pulse Ox O2 Delivery O2 Flow Rate FiO2 04/14/17 13:04 98.0 69 20 129/59 98.0 04/14/17 11:38 98 BiPAP/CPAP 04/14/17 08:26 2.0 Physical Exam General: Alert, Oriented X3, Cooperative, No acute distress, Other (down spirit ) Heart: Regular rate, Normal S1, Normal S2 Lungs: Clear Abdomen: Normal bowel sounds, Soft, No tenderness, No hepatosplenomegaly, No masses Extremities: No clubbing, No cyanosis, No edema, Normal pulses, No tenderness/ swelling Skin: No rashes, No breakdown, No significant lesion Labs LABS Laboratory Tests Test 04/13/17 20:30 04/14/17 03:42 White Blood Count 13.1 x10^3/uL (4.0-11.0) 10.6 x10^3/uL (4.0-11.0) Red Blood Count 4.92 x10^6/uL (3.50-5.40) 4.83 x10^6/uL (3.50-5.40) Hemoglobin 12.4 g/dL (12.0-15.5) 12.5 g/dL (12.0-15.5) Hematocrit 39.7 % (36.0-47.0) 39.0 % (36.0-47.0) Mean Corpuscular Volume 81 fL (79-100) 81 fL (79-100) Mean Corpuscular Hemoglobin 25 pg (25-35) 26 pg (25-35) Mean Corpuscular Hemoglobin Concent 31 g/dL (31-37) 32 g/dL (31-37) Red Cell Distribution Width 19.0 % (11.5-14.5) 18.8 % (11.5-14.5) Platelet Count 431 x10^3/uL (140-400) 408 x10^3/uL (140-400) Neutrophils (%) (Auto) 62 % (31-73) 55 % (31-73) Lymphocytes (%) (Auto) 28 % (24-48) 34 % (24-48) Monocytes (%) (Auto) 9 % (0-9) 9 % (0-9) Eosinophils (%) (Auto) 1 % (0-3) 2 % (0-3) Basophils (%) (Auto) 1 % (0-3) 1 % (0-3) Neutrophils # (Auto) 8.1 x10^3uL (1.8-7.7) 5.8 x10^3uL (1.8-7.7) Lymphocytes # (Auto) 3.6 x10^3/uL (1.0-4.8) 3.6 x10^3/uL (1.0-4.8) Monocytes # (Auto) 1.2 x10^3/uL (0.0-1.1) 1.0 x10^3/uL (0.0-1.1) Eosinophils # (Auto) 0.1 x10^3/uL (0.0-0.7) 0.2 x10^3/uL (0.0-0.7) Basophils # (Auto) 0.1 x10^3/uL (0.0-0.2) 0.1 x10^3/uL (0.0-0.2) Prothrombin Time 15.1 SEC (11.7-14.0) Prothromb Time International Ratio 1.3 (0.8-1.1) Activated Partial Thromboplast Time 32 SEC (24-38) Fibrinogen 127 mg/dL (200-440) Sodium Level 144 mmol/L (136-145) 146 mmol/L (136-145) Potassium Level 3.7 mmol/L (3.5-5.1) 3.6 mmol/L (3.5-5.1) Chloride Level 110 mmol/L (98-107) 110 mmol/L (98-107) Carbon Dioxide Level 27 mmol/L (21-32) 33 mmol/L (21-32) Anion Gap 7 (6-14) 3 (6-14) Blood Urea Nitrogen 14 mg/dL (7-20) 16 mg/dL (7-20) Creatinine 0.7 mg/dL (0.6-1.0) 0.6 mg/dL (0.6-1.0) Estimated GFR (Cockcroft-Gault) 83.5 99.7 BUN/Creatinine Ratio 20 (6-20) Glucose Level 88 mg/dL (70-99) 86 mg/dL (70-99) Calcium Level 8.7 mg/dL (8.5-10.1) 9.3 mg/dL (8.5-10.1) Total Bilirubin 0.2 mg/dL (0.2-1.0) Aspartate Amino Transf (AST/SGOT) 12 U/L (15-37) Alanine Aminotransferase (ALT/SGPT) 17 U/L (14-59) Alkaline Phosphatase 64 U/L (46-116) Total Protein 5.0 g/dL (6.4-8.2) Albumin 3.3 g/dL (3.4-5.0) Albumin/Globulin Ratio 1.9 (1.0-1.7) Assessment and Plan Assessmemt and Plan Problems Medical Problems: (1) Respiratory depression Status: Acute Problems: Comment Review of Relevant I have reviewed the following items antonio (where applicable) has been applied. Labs Laboratory Tests Test 04/13/17 03:30 04/13/17 20:30 04/14/17 03:42 White Blood Count 9.7 x10^3/uL (4.0-11.0) 13.1 x10^3/uL (4.0-11.0) 10.6 x10^3/uL (4.0-11.0) Red Blood Count 4.65 x10^6/uL (3.50-5.40) 4.92 x10^6/uL (3.50-5.40) 4.83 x10^6/uL (3.50-5.40) Hemoglobin 12.0 g/dL (12.0-15.5) 12.4 g/dL (12.0-15.5) 12.5 g/dL (12.0-15.5) Hematocrit 38.0 % (36.0-47.0) 39.7 % (36.0-47.0) 39.0 % (36.0-47.0) Mean Corpuscular Volume 82 fL (79-100) 81 fL (79-100) 81 fL (79-100) Mean Corpuscular Hemoglobin 26 pg (25-35) 25 pg (25-35) 26 pg (25-35) Mean Corpuscular Hemoglobin Concent 32 g/dL (31-37) 31 g/dL (31-37) 32 g/dL (31-37) Red Cell Distribution Width 19.3 % (11.5-14.5) 19.0 % (11.5-14.5) 18.8 % (11.5-14.5) Platelet Count 391 x10^3/uL (140-400) 431 x10^3/uL (140-400) 408 x10^3/uL (140-400) Neutrophils (%) (Auto) 59 % (31-73) 62 % (31-73) 55 % (31-73) Lymphocytes (%) (Auto) 31 % (24-48) 28 % (24-48) 34 % (24-48) Monocytes (%) (Auto) 8 % (0-9) 9 % (0-9) 9 % (0-9) Eosinophils (%) (Auto) 2 % (0-3) 1 % (0-3) 2 % (0-3) Basophils (%) (Auto) 1 % (0-3) 1 % (0-3) 1 % (0-3) Neutrophils # (Auto) 5.7 x10^3uL (1.8-7.7) 8.1 x10^3uL (1.8-7.7) 5.8 x10^3uL (1.8-7.7) Lymphocytes # (Auto) 3.0 x10^3/uL (1.0-4.8) 3.6 x10^3/uL (1.0-4.8) 3.6 x10^3/uL (1.0-4.8) Monocytes # (Auto) 0.7 x10^3/uL (0.0-1.1) 1.2 x10^3/uL (0.0-1.1) 1.0 x10^3/uL (0.0-1.1) Eosinophils # (Auto) 0.2 x10^3/uL (0.0-0.7) 0.1 x10^3/uL (0.0-0.7) 0.2 x10^3/uL (0.0-0.7) Basophils # (Auto) 0.1 x10^3/uL (0.0-0.2) 0.1 x10^3/uL (0.0-0.2) 0.1 x10^3/uL (0.0-0.2) Prothrombin Time 13.7 SEC (11.7-14.0) 15.1 SEC (11.7-14.0) Prothromb Time International Ratio 1.1 (0.8-1.1) 1.3 (0.8-1.1) Activated Partial Thromboplast Time 34 SEC (24-38) 32 SEC (24-38) Fibrinogen 161 mg/dL (200-440) 127 mg/dL (200-440) Sodium Level 144 mmol/L (136-145) 144 mmol/L (136-145) 146 mmol/L (136-145) Potassium Level 3.3 mmol/L (3.5-5.1) 3.7 mmol/L (3.5-5.1) 3.6 mmol/L (3.5-5.1) Chloride Level 108 mmol/L (98-107) 110 mmol/L (98-107) 110 mmol/L (98-107) Carbon Dioxide Level 31 mmol/L (21-32) 27 mmol/L (21-32) 33 mmol/L (21-32) Anion Gap 5 (6-14) 7 (6-14) 3 (6-14) Blood Urea Nitrogen 19 mg/dL (7-20) 14 mg/dL (7-20) 16 mg/dL (7-20) Creatinine 0.6 mg/dL (0.6-1.0) 0.7 mg/dL (0.6-1.0) 0.6 mg/dL (0.6-1.0) Estimated GFR (Cockcroft-Gault) 99.7 83.5 99.7 Glucose Level 97 mg/dL (70-99) 88 mg/dL (70-99) 86 mg/dL (70-99) Calcium Level 9.4 mg/dL (8.5-10.1) 8.7 mg/dL (8.5-10.1) 9.3 mg/dL (8.5-10.1) Magnesium Level 2.1 mg/dL (1.8-2.4) Albumin 3.2 g/dL (3.4-5.0) 3.3 g/dL (3.4-5.0) BUN/Creatinine Ratio 20 (6-20) Total Bilirubin 0.2 mg/dL (0.2-1.0) Aspartate Amino Transf (AST/SGOT) 12 U/L (15-37) Alanine Aminotransferase (ALT/SGPT) 17 U/L (14-59) Alkaline Phosphatase 64 U/L (46-116) Total Protein 5.0 g/dL (6.4-8.2) Albumin/Globulin Ratio 1.9 (1.0-1.7) Laboratory Tests Test 04/13/17 20:30 04/14/17 03:42 White Blood Count 13.1 x10^3/uL (4.0-11.0) 10.6 x10^3/uL (4.0-11.0) Red Blood Count 4.92 x10^6/uL (3.50-5.40) 4.83 x10^6/uL (3.50-5.40) Hemoglobin 12.4 g/dL (12.0-15.5) 12.5 g/dL (12.0-15.5) Hematocrit 39.7 % (36.0-47.0) 39.0 % (36.0-47.0) Mean Corpuscular Volume 81 fL (79-100) 81 fL (79-100) Mean Corpuscular Hemoglobin 25 pg (25-35) 26 pg (25-35) Mean Corpuscular Hemoglobin Concent 31 g/dL (31-37) 32 g/dL (31-37) Red Cell Distribution Width 19.0 % (11.5-14.5) 18.8 % (11.5-14.5) Platelet Count 431 x10^3/uL (140-400) 408 x10^3/uL (140-400) Neutrophils (%) (Auto) 62 % (31-73) 55 % (31-73) Lymphocytes (%) (Auto) 28 % (24-48) 34 % (24-48) Monocytes (%) (Auto) 9 % (0-9) 9 % (0-9) Eosinophils (%) (Auto) 1 % (0-3) 2 % (0-3) Basophils (%) (Auto) 1 % (0-3) 1 % (0-3) Neutrophils # (Auto) 8.1 x10^3uL (1.8-7.7) 5.8 x10^3uL (1.8-7.7) Lymphocytes # (Auto) 3.6 x10^3/uL (1.0-4.8) 3.6 x10^3/uL (1.0-4.8) Monocytes # (Auto) 1.2 x10^3/uL (0.0-1.1) 1.0 x10^3/uL (0.0-1.1) Eosinophils # (Auto) 0.1 x10^3/uL (0.0-0.7) 0.2 x10^3/uL (0.0-0.7) Basophils # (Auto) 0.1 x10^3/uL (0.0-0.2) 0.1 x10^3/uL (0.0-0.2) Prothrombin Time 15.1 SEC (11.7-14.0) Prothromb Time International Ratio 1.3 (0.8-1.1) Activated Partial Thromboplast Time 32 SEC (24-38) Fibrinogen 127 mg/dL (200-440) Sodium Level 144 mmol/L (136-145) 146 mmol/L (136-145) Potassium Level 3.7 mmol/L (3.5-5.1) 3.6 mmol/L (3.5-5.1) Chloride Level 110 mmol/L (98-107) 110 mmol/L (98-107) Carbon Dioxide Level 27 mmol/L (21-32) 33 mmol/L (21-32) Anion Gap 7 (6-14) 3 (6-14) Blood Urea Nitrogen 14 mg/dL (7-20) 16 mg/dL (7-20) Creatinine 0.7 mg/dL (0.6-1.0) 0.6 mg/dL (0.6-1.0) Estimated GFR (Cockcroft-Gault) 83.5 99.7 BUN/Creatinine Ratio 20 (6-20) Glucose Level 88 mg/dL (70-99) 86 mg/dL (70-99) Calcium Level 8.7 mg/dL (8.5-10.1) 9.3 mg/dL (8.5-10.1) Total Bilirubin 0.2 mg/dL (0.2-1.0) Aspartate Amino Transf (AST/SGOT) 12 U/L (15-37) Alanine Aminotransferase (ALT/SGPT) 17 U/L (14-59) Alkaline Phosphatase 64 U/L (46-116) Total Protein 5.0 g/dL (6.4-8.2) Albumin 3.3 g/dL (3.4-5.0) Albumin/Globulin Ratio 1.9 (1.0-1.7) Medications Current Medications Pyridostigmine [place] (Mestinon) 60 mg 1X STAT PO Last administered on 15:37; Start 04/11/17 at 15:08; Stop 04/11/17 at 15:09; Status DC Sodium Chloride 1,000 ml @ 100 mls/hr Q10H IV Last administered on 04/11/17 15:37; Start 04/11/17 at 15:07; Stop 04/12/17 at 01:06; Status DC Magnesium Sulfate/ Dextrose 50 ml @ 25 mls/hr 1X ONCE IV Last administered on 04/11/17 16:36; Start 04/11/17 at 16:30; Stop 04/11/17 at 18:29; Status DC Alprazolam (Xanax) 1 mg PRN TID PRN PO ANXIETY Last administered on 04/13/17 20:31; Start 04/11/17 at 16:00 Amlodipine Besylate (Norvasc) 10 mg DAILY PO Last administered on 04/14/17 09 :41; Start 04/12/17 at 09:00 Atorvastatin Calcium (Lipitor) 10 mg QHS PO Last administered on 04/13/17 20: 22; Start 04/11/17 at 21:00 Acetaminophen/ Hydrocodone Bitart (Lortab 7.5/325) 1 tab PRN Q6HRS PRN PO PAIN Last administered on 04/13/17 20:32; Start 04/11/17 at 16:00 Pyridostigmine [place] (M[place]in[place]) 60 mg QID PO Last administered on 04/14/17 09:39; Start 04/11/17 at 17:00 Bupropion HCl (Wellbutrin Xl) 300 mg DAILY PO Last administered on 04/14/17 09:42; Start 04/12/17 at 09:00 Vitamin D (Vitamin D3) 1,000 unit DAILY PO Last administered on 04/14/17 09: 39; Start 04/12/17 at 09:00 Duloxetine HCl (Cymbalta) 120 mg DAILY PO Last administered on 04/14/17 09:41 ; Start 04/12/17 at 09:00 Gabapentin (Neurontin) 300 mg TID PO Last administered on 04/14/17 09:42; Start 04/11/17 at 21:00 Losartan Potassium (Cozaar) 100 mg DAILY PO Last administered on 04/14/17 09: 40; Start 04/12/17 at 09:00 Diphenhydramine HCl (Benadryl) 25 mg PRN QHS PRN PO INSOMNIA; Start 04/11/17 at 16:15 Prednisone (Prednisone) 20 mg DAILY PO Last administered on 04/14/17 09:42; Start 04/11/17 at 17:15 Calcium Carbonate/ Glycine (Oscal) 500 mg TIDAFTMEAL PO Last administered on 09:40; Start 04/11/17 at 18:00 Famotidine (Pepcid) 20 mg DAILY PO Last administered on 04/14/17 09:41; Start 04/12/17 at 09:00 Ergocalciferol (Vitamin D2) 50,000 unit QMTH PO ; Start 04/13/17 at 16:00 Heparin Sodium (Porcine) (Hep Lock Adult) 500 unit 1X ONCE IV Last administered on 04/11/17 17:28; Start 04/11/17 at 17:30; Stop 04/11/17 at 17:31 ; Status DC Heparin Sodium (Porcine) (Heparin Sodium) 2,000 unit 1X ONCE IV Last administered on 04/12/17 09:42; Start 04/12/17 at 08:45; Stop 04/12/17 at 08:46 ; Status DC Diphenhydramine HCl (Benadryl) 25 mg 1X PRN PRN IV ITCHING; Start 04/12/17 at 08:45; Stop 04/13/17 at 08:44; Status DC Diphenhydramine HCl (Benadryl) 25 mg 1X PRN PRN IV ITCHING; Start 04/12/17 at 08:45; Stop 04/13/17 at 08:44; Status DC Albumin Human 2,000 ml @ 0 mls/hr 1X ONCE IV ; Start 04/12/17 at 09:00; Stop 04/12/17 at 09:01; Status DC Albumin Human 1,500 ml @ 0 mls/hr 1X ONCE IV ; Start 04/13/17 at 09:00; Stop 04/13/17 at 09:02; Status DC Heparin Sodium (Porcine) (Heparin Sodium) 2,000 unit 1X ONCE IV ; Start at 09:00; Stop 04/13/17 at 09:02; Status DC Potassium Chloride (Klor-Con) 40 meq TID PO Last administered on 04/14/17 09: 41; Start 04/13/17 at 14:00; Stop 04/14/17 at 09:01; Status DC Albumin Human 1,500 ml @ 0 mls/hr 1X ONCE IV Last administered on 04/13/17 17:53; Start 04/13/17 at 15:30; Stop 04/13/17 at 15:31; Status DC Heparin Sodium (Porcine) (Heparin Sodium) 2,000 unit 1X ONCE IV Last administered on 04/13/17 17:51; Start 04/13/17 at 15:30; Stop 04/13/17 at 15:31 ; Status DC Albumin Human 2,000 ml @ 125 mls/hr 1X ONCE IV Last administered on 12:53; Start 04/14/17 at 11:15; Stop 04/15/17 at 03:14 Active Scripts Active Hydrocodone-Apap 7.5-325 (Hydrocodone Bit/Acetaminophen) 1 Each Tablet 1 Tab PO PRN Q6HRS PRN Amlodipine Besylate 10 Mg Tablet 10 Mg PO DAILY Reported [place] (Pyridostigmine [place]) 60 Mg Tablet 60 Mg PO QID Cymbalta (Duloxetine Hcl) 60 Mg Capsule.dr 2 Cap PO DAILY Gabapentin 300 Mg Capsule 300 Mg PO TID Xanax (Alprazolam) 0.5 Mg Tablet 1 Mg PO PRN TID PRN Vitamin D-3 (Cholecalciferol (Vitamin D3)) 2,000 Unit Tablet 1,000 Unit PO DAILY06 Atorvastatin Calcium 10 Mg Tablet 10 Mg PO DAILY Losartan Potassium 100 Mg Tablet 100 Mg PO DAILY Bupropion Xl (Bupropion Hcl) 300 Mg Tab.er.24h 300 Mg PO DAILY Vitals/I & O Vital Sign - Last 24 Hours 04/13/17 04/13/17 04/13/17 04/13/17 14:52 19:22 20:00 20:32 Temp 98.3 97.9 98.3 97.9 Pulse 50 82 Resp 20 18 16 B/P (MAP) 135/56 (82) 108/54 (72) Pulse Ox 96 95 95 O2 Delivery Room Air Nasal Cannula Room Air Room Air O2 Flow Rate 2.0 04/13/17 04/13/17 04/14/17 04/14/17 21:47 23:30 03:37 07:00 Temp 97.7 97.6 96.6 97.7 97.6 96.6 Pulse 72 66 63 Resp 18 18 18 B/P (MAP) 126/58 (80) 124/61 (82) 116/68 (84) Pulse Ox 95 97 97 96 O2 Delivery Room Air Room Air BiPAP/CPAP BiPAP/CPAP 04/14/17 04/14/17 04/14/17 04/14/17 08:26 09:40 09:41 11:38 Temp 97.8 97.8 Pulse 63 63 81 Resp 18 B/P (MAP) 116/68 116/68 119/68 (85) Pulse Ox 98 O2 Delivery Room Air BiPAP/CPAP O2 Flow Rate 2.0 04/14/17 04/14/17 04/14/17 04/14/17 12:46 12:47 13:03 13:04 Temp 98.0 98.0 98.0 98.0 98.0 98.0 98.0 98.0 Pulse 70 72 69 69 Resp 20 20 20 20 B/P (MAP) 127/62 127/62 129/59 129/59 Intake and Output 11/03/2104/14/17 04/15/17 14:59 22:59 06:59 Intake Total 50 ml Balance 50 ml GIRISH BURT MD Apr 14, 2017 13:50
--- NOTE | 2017-04-14 14:52 | PDOC ---
PULMONARY PROGRESS NOTES Subjective PT WITH NO INCREASE SOA Vitals Vital Signs Date Time Temp Pulse Resp B/P (MAP) Pulse Ox O2 Delivery O2 Flow Rate FiO2 04/14/17 13:50 98.0 80 20 129/69 98.0 04/14/17 11:38 98 BiPAP/CPAP 04/14/17 08:26 2.0 ROS: No Nausea, No Chest Pain, No Abdominal Pain, No Increase Cough Lungs: Clear Cardiovascular: S1, S2 Abdomen: Soft Neuro Exam: Alert Extremities: No Edema Skin: Warm Labs Laboratory Tests Test 04/13/17 03:30 04/13/17 20:30 04/14/17 03:42 White Blood Count 9.7 x10^3/uL (4.0-11.0) 13.1 x10^3/uL (4.0-11.0) 10.6 x10^3/uL (4.0-11.0) Red Blood Count 4.65 x10^6/uL (3.50-5.40) 4.92 x10^6/uL (3.50-5.40) 4.83 x10^6/uL (3.50-5.40) Hemoglobin 12.0 g/dL (12.0-15.5) 12.4 g/dL (12.0-15.5) 12.5 g/dL (12.0-15.5) Hematocrit 38.0 % (36.0-47.0) 39.7 % (36.0-47.0) 39.0 % (36.0-47.0) Mean Corpuscular Volume 82 fL (79-100) 81 fL (79-100) 81 fL (79-100) Mean Corpuscular Hemoglobin 26 pg (25-35) 25 pg (25-35) 26 pg (25-35) Mean Corpuscular Hemoglobin Concent 32 g/dL (31-37) 31 g/dL (31-37) 32 g/dL (31-37) Red Cell Distribution Width 19.3 % (11.5-14.5) 19.0 % (11.5-14.5) 18.8 % (11.5-14.5) Platelet Count 391 x10^3/uL (140-400) 431 x10^3/uL (140-400) 408 x10^3/uL (140-400) Neutrophils (%) (Auto) 59 % (31-73) 62 % (31-73) 55 % (31-73) Lymphocytes (%) (Auto) 31 % (24-48) 28 % (24-48) 34 % (24-48) Monocytes (%) (Auto) 8 % (0-9) 9 % (0-9) 9 % (0-9) Eosinophils (%) (Auto) 2 % (0-3) 1 % (0-3) 2 % (0-3) Basophils (%) (Auto) 1 % (0-3) 1 % (0-3) 1 % (0-3) Neutrophils # (Auto) 5.7 x10^3uL (1.8-7.7) 8.1 x10^3uL (1.8-7.7) 5.8 x10^3uL (1.8-7.7) Lymphocytes # (Auto) 3.0 x10^3/uL (1.0-4.8) 3.6 x10^3/uL (1.0-4.8) 3.6 x10^3/uL (1.0-4.8) Monocytes # (Auto) 0.7 x10^3/uL (0.0-1.1) 1.2 x10^3/uL (0.0-1.1) 1.0 x10^3/uL (0.0-1.1) Eosinophils # (Auto) 0.2 x10^3/uL (0.0-0.7) 0.1 x10^3/uL (0.0-0.7) 0.2 x10^3/uL (0.0-0.7) Basophils # (Auto) 0.1 x10^3/uL (0.0-0.2) 0.1 x10^3/uL (0.0-0.2) 0.1 x10^3/uL (0.0-0.2) Prothrombin Time 13.7 SEC (11.7-14.0) 15.1 SEC (11.7-14.0) Prothromb Time International Ratio 1.1 (0.8-1.1) 1.3 (0.8-1.1) Activated Partial Thromboplast Time 34 SEC (24-38) 32 SEC (24-38) Fibrinogen 161 mg/dL (200-440) 127 mg/dL (200-440) Sodium Level 144 mmol/L (136-145) 144 mmol/L (136-145) 146 mmol/L (136-145) Potassium Level 3.3 mmol/L (3.5-5.1) 3.7 mmol/L (3.5-5.1) 3.6 mmol/L (3.5-5.1) Chloride Level 108 mmol/L (98-107) 110 mmol/L (98-107) 110 mmol/L (98-107) Carbon Dioxide Level 31 mmol/L (21-32) 27 mmol/L (21-32) 33 mmol/L (21-32) Anion Gap 5 (6-14) 7 (6-14) 3 (6-14) Blood Urea Nitrogen 19 mg/dL (7-20) 14 mg/dL (7-20) 16 mg/dL (7-20) Creatinine 0.6 mg/dL (0.6-1.0) 0.7 mg/dL (0.6-1.0) 0.6 mg/dL (0.6-1.0) Estimated GFR (Cockcroft-Gault) 99.7 83.5 99.7 Glucose Level 97 mg/dL (70-99) 88 mg/dL (70-99) 86 mg/dL (70-99) Calcium Level 9.4 mg/dL (8.5-10.1) 8.7 mg/dL (8.5-10.1) 9.3 mg/dL (8.5-10.1) Magnesium Level 2.1 mg/dL (1.8-2.4) Albumin 3.2 g/dL (3.4-5.0) 3.3 g/dL (3.4-5.0) BUN/Creatinine Ratio 20 (6-20) Total Bilirubin 0.2 mg/dL (0.2-1.0) Aspartate Amino Transf (AST/SGOT) 12 U/L (15-37) Alanine Aminotransferase (ALT/SGPT) 17 U/L (14-59) Alkaline Phosphatase 64 U/L (46-116) Total Protein 5.0 g/dL (6.4-8.2) Albumin/Globulin Ratio 1.9 (1.0-1.7) Laboratory Tests Test 04/13/17 20:30 04/14/17 03:42 White Blood Count 13.1 x10^3/uL (4.0-11.0) 10.6 x10^3/uL (4.0-11.0) Red Blood Count 4.92 x10^6/uL (3.50-5.40) 4.83 x10^6/uL (3.50-5.40) Hemoglobin 12.4 g/dL (12.0-15.5) 12.5 g/dL (12.0-15.5) Hematocrit 39.7 % (36.0-47.0) 39.0 % (36.0-47.0) Mean Corpuscular Volume 81 fL (79-100) 81 fL (79-100) Mean Corpuscular Hemoglobin 25 pg (25-35) 26 pg (25-35) Mean Corpuscular Hemoglobin Concent 31 g/dL (31-37) 32 g/dL (31-37) Red Cell Distribution Width 19.0 % (11.5-14.5) 18.8 % (11.5-14.5) Platelet Count 431 x10^3/uL (140-400) 408 x10^3/uL (140-400) Neutrophils (%) (Auto) 62 % (31-73) 55 % (31-73) Lymphocytes (%) (Auto) 28 % (24-48) 34 % (24-48) Monocytes (%) (Auto) 9 % (0-9) 9 % (0-9) Eosinophils (%) (Auto) 1 % (0-3) 2 % (0-3) Basophils (%) (Auto) 1 % (0-3) 1 % (0-3) Neutrophils # (Auto) 8.1 x10^3uL (1.8-7.7) 5.8 x10^3uL (1.8-7.7) Lymphocytes # (Auto) 3.6 x10^3/uL (1.0-4.8) 3.6 x10^3/uL (1.0-4.8) Monocytes # (Auto) 1.2 x10^3/uL (0.0-1.1) 1.0 x10^3/uL (0.0-1.1) Eosinophils # (Auto) 0.1 x10^3/uL (0.0-0.7) 0.2 x10^3/uL (0.0-0.7) Basophils # (Auto) 0.1 x10^3/uL (0.0-0.2) 0.1 x10^3/uL (0.0-0.2) Prothrombin Time 15.1 SEC (11.7-14.0) Prothromb Time International Ratio 1.3 (0.8-1.1) Activated Partial Thromboplast Time 32 SEC (24-38) Fibrinogen 127 mg/dL (200-440) Sodium Level 144 mmol/L (136-145) 146 mmol/L (136-145) Potassium Level 3.7 mmol/L (3.5-5.1) 3.6 mmol/L (3.5-5.1) Chloride Level 110 mmol/L (98-107) 110 mmol/L (98-107) Carbon Dioxide Level 27 mmol/L (21-32) 33 mmol/L (21-32) Anion Gap 7 (6-14) 3 (6-14) Blood Urea Nitrogen 14 mg/dL (7-20) 16 mg/dL (7-20) Creatinine 0.7 mg/dL (0.6-1.0) 0.6 mg/dL (0.6-1.0) Estimated GFR (Cockcroft-Gault) 83.5 99.7 BUN/Creatinine Ratio 20 (6-20) Glucose Level 88 mg/dL (70-99) 86 mg/dL (70-99) Calcium Level 8.7 mg/dL (8.5-10.1) 9.3 mg/dL (8.5-10.1) Total Bilirubin 0.2 mg/dL (0.2-1.0) Aspartate Amino Transf (AST/SGOT) 12 U/L (15-37) Alanine Aminotransferase (ALT/SGPT) 17 U/L (14-59) Alkaline Phosphatase 64 U/L (46-116) Total Protein 5.0 g/dL (6.4-8.2) Albumin 3.3 g/dL (3.4-5.0) Albumin/Globulin Ratio 1.9 (1.0-1.7) Medications Active Scripts Medications Dose Route/Sig Max Daily Dose Days Date Category Hydrocodone-Apap 7.5-325 (Hydrocodone Bit/Acetaminophen) 1 Each Tablet 1 Tab PO PRN Q6HRS PRN 03/07/17 Rx Mestinon (Pyridostigmine [place]) 60 Mg Tablet 60 Mg PO QID 02/28/17 Reported Amlodipine Besylate 10 Mg Tablet 10 Mg PO DAILY 05/23/16 Rx Cymbalta (Duloxetine Hcl) 60 Mg Capsule.dr 2 Cap PO DAILY 02/19/16 Reported Gabapentin 300 Mg Capsule 300 Mg PO TID 02/04/16 Reported Xanax (Alprazolam) 0.5 Mg Tablet 1 Mg PO PRN TID PRN 10/04/13 Reported Vitamin D-3 (Cholecalciferol (Vitamin D3)) 2,000 Unit Tablet 1,000 Unit PO DAILY06 08/21/13 Reported Atorvastatin Calcium 10 Mg Tablet 10 Mg PO DAILY 07/31/13 Reported Losartan Potassium 100 Mg Tablet 100 Mg PO DAILY 07/31/13 Reported Bupropion Xl (Bupropion Hcl) 300 Mg Tab.er.24h 300 Mg PO DAILY 07/31/13 Reported Impression . 1. Acute respiratory distress secondary to exacerbation of myasthenia gravis. 2. Exacerbation of myasthenia gravis. 3. Peripheral neuropathy. 4. Anxiety/depression. 5. Obstructive sleep apnea. Plan . PLAN: 1. We will continue monitoring negative inspiratory force on a daily basis. 2. The patient is to undergo plasmapheresis. 3. Respiratory status is compensated at this time. 4. Continue oxygen supplementation. 5. No need for antibiotics. LYLA VÁZQUEZ MD Apr 14, 2017 14:52
[2017-04-14] MEDS: ATORVASTATIN CALCIUM 10 MG TABLET. PO SCH (20:58)
[2017-04-14] MEDS: ALPRAZolam 1 MG TABLET PO PRN (20:59)
[2017-04-14] MEDS: HYDROcodone/APAP 7.5/325MG 1 TAB TABLET PO PRN (20:59)
[2017-04-15 03:00] VITALS: BP 134/65
[2017-04-15 05:57] LABS: BASO % 0 % (0-3); EOS % 1 % (0-3); HEMATOCRIT 36.1 % (36.0-47.0); HEMOGLOBIN 11.3 g/dL (12.0-15.5); LYMPH # 3.8 x10^3/uL (1.0-4.8); LYMPH % 37 % (24-48); MEAN CORPUSCULAR HEMOGLOBIN 25 pg (25-35); MEAN CORPUSCULAR HGB CONC 31 g/dL (31-37); MEAN CORPUSCULAR VOLUME 81 fL (79-100); MONO % 8 % (0-9); NEUT % 54 % (31-73); PLATELET COUNT 366 x10^3/uL (140-400); RED BLOOD COUNT 4.47 x10^6/uL (3.50-5.40); RED CELL DISTRIBUTION WIDTH 19.1 % (11.5-14.5); WHITE BLOOD COUNT 10.4 x10^3/uL (4.0-11.0)
[2017-04-15 06:19] LABS: CALCIUM 9.5 mg/dL (8.5-10.1); CREATININE 0.5 mg/dL (0.6-1.0); GFR 123.1; POTASSIUM 3.5 mmol/L (3.5-5.1)
[2017-04-15 07:15] VITALS: BP 133/63
[2017-04-15] MEDS: buPROPion XL 150 MG TAB.ER.24H. PO SCH (08:51)
[2017-04-15] MEDS: CHOLECALCIFEROL (VITAMIN D3) 1,000 UNIT TABLET PO SCH (08:51)
[2017-04-15] MEDS: GABAPENTIN 300 MG CAPSULE. PO SCH ×3 (08:51→19:43)
[2017-04-15] MEDS: LOSARTAN POTASSIUM 50 MG TABLET. PO SCH (08:51)
[2017-04-15] MEDS: FAMOTIDINE 20 MG TABLET. PO SCH (08:51)
[2017-04-15] MEDS: predniSONE 20 MG TABLET PO SCH (08:52)
[2017-04-15] MEDS: DULoxetine HCL 30 MG CAPSULE.DR PO SCH (08:52)
[2017-04-15] MEDS: amLODIPine BESYLATE 10 MG TABLET PO SCH (08:52)
[2017-04-15] MEDS: CALCIUM CARBONATE 500 MG TABLET PO SCH ×3 (08:52→17:19)
[2017-04-15] MEDS: PYRIDOSTIGMINE BROMIDE 60 MG TABLET PO SCH ×4 (08:52→19:43)
--- NOTE | 2017-04-15 09:20 | PDOC3 ---
Discharge Summary Visit Information Date of Admission: Apr 11, 2017 Date of Discharge: Apr 15, 2017 Admitting Diagnosis Comment: Myasthenia gravis exacerb Final Diagnosis Problems Medical Problems: (1) Respiratory depression Status: Acute Brief Hospital Course Allergies Allergies Coded Allergies Type Severity Reaction Last Updated Verified Penicillins Allergy Intermediate Rash 02/28/17 Yes ciprofloxacin Allergy Intermediate 03/27/17 Yes Sulfa (Sulfonamide Antibiotics) Adverse Reaction Intermediate Nausea 02/28/17 Yes Vital Signs Vital Signs Date Time Temp Pulse Resp B/P (MAP) Pulse Ox O2 Delivery O2 Flow Rate FiO2 04/15/17 08:52 64 133/63 04/15/17 07:50 Room Air 2.0 04/15/17 07:15 98.1 18 98 98.1 Lab Results Laboratory Tests Test 04/13/17 20:30 04/14/17 03:42 04/15/17 04:45 04/15/17 04:55 White Blood Count 13.1 x10^3/uL (4.0-11.0) 10.6 x10^3/uL (4.0-11.0) 10.4 x10^3/uL (4.0-11.0) Red Blood Count 4.92 x10^6/uL (3.50-5.40) 4.83 x10^6/uL (3.50-5.40) 4.47 x10^6/uL (3.50-5.40) Hemoglobin 12.4 g/dL (12.0-15.5) 12.5 g/dL (12.0-15.5) 11.3 g/dL (12.0-15.5) Hematocrit 39.7 % (36.0-47.0) 39.0 % (36.0-47.0) 36.1 % (36.0-47.0) Mean Corpuscular Volume 81 fL (79-100) 81 fL (79-100) 81 fL (79-100) Mean Corpuscular Hemoglobin 25 pg (25-35) 26 pg (25-35) 25 pg (25-35) Mean Corpuscular Hemoglobin Concent 31 g/dL (31-37) 32 g/dL (31-37) 31 g/dL (31-37) Red Cell Distribution Width 19.0 % (11.5-14.5) 18.8 % (11.5-14.5) 19.1 % (11.5-14.5) Platelet Count 431 x10^3/uL (140-400) 408 x10^3/uL (140-400) 366 x10^3/uL (140-400) Neutrophils (%) (Auto) 62 % (31-73) 55 % (31-73) 54 % (31-73) Lymphocytes (%) (Auto) 28 % (24-48) 34 % (24-48) 37 % (24-48) Monocytes (%) (Auto) 9 % (0-9) 9 % (0-9) 8 % (0-9) Eosinophils (%) (Auto) 1 % (0-3) 2 % (0-3) 1 % (0-3) Basophils (%) (Auto) 1 % (0-3) 1 % (0-3) 0 % (0-3) Neutrophils # (Auto) 8.1 x10^3uL (1.8-7.7) 5.8 x10^3uL (1.8-7.7) 5.6 x10^3uL (1.8-7.7) Lymphocytes # (Auto) 3.6 x10^3/uL (1.0-4.8) 3.6 x10^3/uL (1.0-4.8) 3.8 x10^3/uL (1.0-4.8) Monocytes # (Auto) 1.2 x10^3/uL (0.0-1.1) 1.0 x10^3/uL (0.0-1.1) 0.8 x10^3/uL (0.0-1.1) Eosinophils # (Auto) 0.1 x10^3/uL (0.0-0.7) 0.2 x10^3/uL (0.0-0.7) 0.1 x10^3/uL (0.0-0.7) Basophils # (Auto) 0.1 x10^3/uL (0.0-0.2) 0.1 x10^3/uL (0.0-0.2) 0.0 x10^3/uL (0.0-0.2) Prothrombin Time 15.1 SEC (11.7-14.0) Prothromb Time International Ratio 1.3 (0.8-1.1) Activated Partial Thromboplast Time 32 SEC (24-38) Fibrinogen 127 mg/dL (200-440) Sodium Level 144 mmol/L (136-145) 146 mmol/L (136-145) 145 mmol/L (136-145) Potassium Level 3.7 mmol/L (3.5-5.1) 3.6 mmol/L (3.5-5.1) 3.5 mmol/L (3.5-5.1) Chloride Level 110 mmol/L (98-107) 110 mmol/L (98-107) 110 mmol/L (98-107) Carbon Dioxide Level 27 mmol/L (21-32) 33 mmol/L (21-32) 30 mmol/L (21-32) Anion Gap 7 (6-14) 3 (6-14) 5 (6-14) Blood Urea Nitrogen 14 mg/dL (7-20) 16 mg/dL (7-20) 18 mg/dL (7-20) Creatinine 0.7 mg/dL (0.6-1.0) 0.6 mg/dL (0.6-1.0) 0.5 mg/dL (0.6-1.0) Estimated GFR (Cockcroft-Gault) 83.5 99.7 123.1 BUN/Creatinine Ratio 20 (6-20) Glucose Level 88 mg/dL (70-99) 86 mg/dL (70-99) 83 mg/dL (70-99) Calcium Level 8.7 mg/dL (8.5-10.1) 9.3 mg/dL (8.5-10.1) 9.5 mg/dL (8.5-10.1) Total Bilirubin 0.2 mg/dL (0.2-1.0) Aspartate Amino Transf (AST/SGOT) 12 U/L (15-37) Alanine Aminotransferase (ALT/SGPT) 17 U/L (14-59) Alkaline Phosphatase 64 U/L (46-116) Total Protein 5.0 g/dL (6.4-8.2) Albumin 3.3 g/dL (3.4-5.0) Albumin/Globulin Ratio 1.9 (1.0-1.7) Laboratory Tests Test 04/15/17 04:45 04/15/17 04:55 White Blood Count 10.4 x10^3/uL (4.0-11.0) Red Blood Count 4.47 x10^6/uL (3.50-5.40) Hemoglobin 11.3 g/dL (12.0-15.5) Hematocrit 36.1 % (36.0-47.0) Mean Corpuscular Volume 81 fL (79-100) Mean Corpuscular Hemoglobin 25 pg (25-35) Mean Corpuscular Hemoglobin Concent 31 g/dL (31-37) Red Cell Distribution Width 19.1 % (11.5-14.5) Platelet Count 366 x10^3/uL (140-400) Neutrophils (%) (Auto) 54 % (31-73) Lymphocytes (%) (Auto) 37 % (24-48) Monocytes (%) (Auto) 8 % (0-9) Eosinophils (%) (Auto) 1 % (0-3) Basophils (%) (Auto) 0 % (0-3) Neutrophils # (Auto) 5.6 x10^3uL (1.8-7.7) Lymphocytes # (Auto) 3.8 x10^3/uL (1.0-4.8) Monocytes # (Auto) 0.8 x10^3/uL (0.0-1.1) Eosinophils # (Auto) 0.1 x10^3/uL (0.0-0.7) Basophils # (Auto) 0.0 x10^3/uL (0.0-0.2) Sodium Level 145 mmol/L (136-145) Potassium Level 3.5 mmol/L (3.5-5.1) Chloride Level 110 mmol/L (98-107) Carbon Dioxide Level 30 mmol/L (21-32) Anion Gap 5 (6-14) Blood Urea Nitrogen 18 mg/dL (7-20) Creatinine 0.5 mg/dL (0.6-1.0) Estimated GFR (Cockcroft-Gault) 123.1 Glucose Level 83 mg/dL (70-99) Calcium Level 9.5 mg/dL (8.5-10.1) Brief Hospital Course Ms. Ramey is a 66 old female known pt of [facility] for myasthenia gravis on mestinon was here for exacerb and back again just maybe a week after getting 5 plasma exchanges, She apparently was not dcd on PO pred, She got 3 plasma exchanges this admit, still has the Rt subclavian HD cath. Faraz written rx for pred 20 1 month supply and mestinon 60 QID 1 month supply with ff severino nassar 1 month/; Seen and examined, Weakness better can feed herself, She had respi and bulbar presentation on admit (diplopia and sats 80s). COnsutsL neuro, renal lProc; Plasma exchanegs x 3 Rx done PLs keep HD cath Discharge Information Condition at Discharge: Improved, Stable Follow Up: Weeks (1 inderjit cesario) Disposition/Orders: D/C to Home w/ HH Scheduled Amlodipine Besylate (Amlodipine Besylate), 10 MG PO DAILY Atorvastatin Calcium (Atorvastatin Calcium), 10 MG PO DAILY, (Reported) Bupropion Hcl (Bupropion Xl), 300 MG PO DAILY, (Reported) Cholecalciferol (Vitamin D3) (Vitamin D-3), 1,000 UNIT PO DAILY06, (Reported) Duloxetine Hcl (Cymbalta), 2 CAP PO DAILY, (Reported) Gabapentin (Gabapentin), 300 MG PO TID, (Reported) Losartan Potassium (Losartan Potassium), 100 MG PO DAILY, (Reported) Pyridostigmine [place] ([place]), 60 MG PO QID, (Reported) Scheduled PRN Alprazolam (Xanax), 1 MG PO PRN TID PRN for ANXIETY, (Reported) Hydrocodone Bit/Acetaminophen (Hydrocodone-Apap 7.5-325 ), 1 TAB PO PRN Q6HRS PRN for PAIN NAIN PAZ MD Apr 15, 2017 09:20
[2017-04-15 10:20] VITALS: BP 145/62
--- NOTE | 2017-04-15 13:43 | PDOC ---
PULMONARY PROGRESS NOTES Subjective PT WITH LESS WEAKNESS NOT MORE SOA Vitals Vital Signs Date Time Temp Pulse Resp B/P (MAP) Pulse Ox O2 Delivery O2 Flow Rate FiO2 04/15/17 10:20 97.6 82 18 145/62 (89) 99 BiPAP/CPAP 97.6 04/15/17 07:50 2.0 ROS: No Nausea, No Chest Pain, No Abdominal Pain, No Increase Cough General: Alert Lungs: Clear Cardiovascular: S1, S2 Abdomen: Soft Neuro Exam: Alert Extremities: No Edema Skin: Warm Labs Laboratory Tests Test 04/13/17 20:30 04/14/17 03:42 04/15/17 04:45 04/15/17 04:55 White Blood Count 13.1 x10^3/uL (4.0-11.0) 10.6 x10^3/uL (4.0-11.0) 10.4 x10^3/uL (4.0-11.0) Red Blood Count 4.92 x10^6/uL (3.50-5.40) 4.83 x10^6/uL (3.50-5.40) 4.47 x10^6/uL (3.50-5.40) Hemoglobin 12.4 g/dL (12.0-15.5) 12.5 g/dL (12.0-15.5) 11.3 g/dL (12.0-15.5) Hematocrit 39.7 % (36.0-47.0) 39.0 % (36.0-47.0) 36.1 % (36.0-47.0) Mean Corpuscular Volume 81 fL (79-100) 81 fL (79-100) 81 fL (79-100) Mean Corpuscular Hemoglobin 25 pg (25-35) 26 pg (25-35) 25 pg (25-35) Mean Corpuscular Hemoglobin Concent 31 g/dL (31-37) 32 g/dL (31-37) 31 g/dL (31-37) Red Cell Distribution Width 19.0 % (11.5-14.5) 18.8 % (11.5-14.5) 19.1 % (11.5-14.5) Platelet Count 431 x10^3/uL (140-400) 408 x10^3/uL (140-400) 366 x10^3/uL (140-400) Neutrophils (%) (Auto) 62 % (31-73) 55 % (31-73) 54 % (31-73) Lymphocytes (%) (Auto) 28 % (24-48) 34 % (24-48) 37 % (24-48) Monocytes (%) (Auto) 9 % (0-9) 9 % (0-9) 8 % (0-9) Eosinophils (%) (Auto) 1 % (0-3) 2 % (0-3) 1 % (0-3) Basophils (%) (Auto) 1 % (0-3) 1 % (0-3) 0 % (0-3) Neutrophils # (Auto) 8.1 x10^3uL (1.8-7.7) 5.8 x10^3uL (1.8-7.7) 5.6 x10^3uL (1.8-7.7) Lymphocytes # (Auto) 3.6 x10^3/uL (1.0-4.8) 3.6 x10^3/uL (1.0-4.8) 3.8 x10^3/uL (1.0-4.8) Monocytes # (Auto) 1.2 x10^3/uL (0.0-1.1) 1.0 x10^3/uL (0.0-1.1) 0.8 x10^3/uL (0.0-1.1) Eosinophils # (Auto) 0.1 x10^3/uL (0.0-0.7) 0.2 x10^3/uL (0.0-0.7) 0.1 x10^3/uL (0.0-0.7) Basophils # (Auto) 0.1 x10^3/uL (0.0-0.2) 0.1 x10^3/uL (0.0-0.2) 0.0 x10^3/uL (0.0-0.2) Prothrombin Time 15.1 SEC (11.7-14.0) Prothromb Time International Ratio 1.3 (0.8-1.1) Activated Partial Thromboplast Time 32 SEC (24-38) Fibrinogen 127 mg/dL (200-440) Sodium Level 144 mmol/L (136-145) 146 mmol/L (136-145) 145 mmol/L (136-145) Potassium Level 3.7 mmol/L (3.5-5.1) 3.6 mmol/L (3.5-5.1) 3.5 mmol/L (3.5-5.1) Chloride Level 110 mmol/L (98-107) 110 mmol/L (98-107) 110 mmol/L (98-107) Carbon Dioxide Level 27 mmol/L (21-32) 33 mmol/L (21-32) 30 mmol/L (21-32) Anion Gap 7 (6-14) 3 (6-14) 5 (6-14) Blood Urea Nitrogen 14 mg/dL (7-20) 16 mg/dL (7-20) 18 mg/dL (7-20) Creatinine 0.7 mg/dL (0.6-1.0) 0.6 mg/dL (0.6-1.0) 0.5 mg/dL (0.6-1.0) Estimated GFR (Cockcroft-Gault) 83.5 99.7 123.1 BUN/Creatinine Ratio 20 (6-20) Glucose Level 88 mg/dL (70-99) 86 mg/dL (70-99) 83 mg/dL (70-99) Calcium Level 8.7 mg/dL (8.5-10.1) 9.3 mg/dL (8.5-10.1) 9.5 mg/dL (8.5-10.1) Total Bilirubin 0.2 mg/dL (0.2-1.0) Aspartate Amino Transf (AST/SGOT) 12 U/L (15-37) Alanine Aminotransferase (ALT/SGPT) 17 U/L (14-59) Alkaline Phosphatase 64 U/L (46-116) Total Protein 5.0 g/dL (6.4-8.2) Albumin 3.3 g/dL (3.4-5.0) Albumin/Globulin Ratio 1.9 (1.0-1.7) Laboratory Tests Test 04/15/17 04:45 04/15/17 04:55 White Blood Count 10.4 x10^3/uL (4.0-11.0) Red Blood Count 4.47 x10^6/uL (3.50-5.40) Hemoglobin 11.3 g/dL (12.0-15.5) Hematocrit 36.1 % (36.0-47.0) Mean Corpuscular Volume 81 fL (79-100) Mean Corpuscular Hemoglobin 25 pg (25-35) Mean Corpuscular Hemoglobin Concent 31 g/dL (31-37) Red Cell Distribution Width 19.1 % (11.5-14.5) Platelet Count 366 x10^3/uL (140-400) Neutrophils (%) (Auto) 54 % (31-73) Lymphocytes (%) (Auto) 37 % (24-48) Monocytes (%) (Auto) 8 % (0-9) Eosinophils (%) (Auto) 1 % (0-3) Basophils (%) (Auto) 0 % (0-3) Neutrophils # (Auto) 5.6 x10^3uL (1.8-7.7) Lymphocytes # (Auto) 3.8 x10^3/uL (1.0-4.8) Monocytes # (Auto) 0.8 x10^3/uL (0.0-1.1) Eosinophils # (Auto) 0.1 x10^3/uL (0.0-0.7) Basophils # (Auto) 0.0 x10^3/uL (0.0-0.2) Sodium Level 145 mmol/L (136-145) Potassium Level 3.5 mmol/L (3.5-5.1) Chloride Level 110 mmol/L (98-107) Carbon Dioxide Level 30 mmol/L (21-32) Anion Gap 5 (6-14) Blood Urea Nitrogen 18 mg/dL (7-20) Creatinine 0.5 mg/dL (0.6-1.0) Estimated GFR (Cockcroft-Gault) 123.1 Glucose Level 83 mg/dL (70-99) Calcium Level 9.5 mg/dL (8.5-10.1) Medications Active Scripts Medications Dose Route/Sig Max Daily Dose Days Date Category Hydrocodone-Apap 7.5-325 (Hydrocodone Bit/Acetaminophen) 1 Each Tablet 1 Tab PO PRN Q6HRS PRN 03/07/17 Rx Mestinon (Pyridostigmine [place]) 60 Mg Tablet 60 Mg PO QID 02/28/17 Reported Amlodipine Besylate 10 Mg Tablet 10 Mg PO DAILY 05/23/16 Rx Cymbalta (Duloxetine Hcl) 60 Mg Capsule. 2 Cap PO DAILY 02/19/16 Reported Gabapentin 300 Mg Capsule 300 Mg PO TID 02/04/16 Reported Xanax (Alprazolam) 0.5 Mg Tablet 1 Mg PO PRN TID PRN 10/04/13 Reported Vitamin D-3 (Cholecalciferol (Vitamin D3)) 2,000 Unit Tablet 1,000 Unit PO DAILY06 08/21/13 Reported Atorvastatin Calcium 10 Mg Tablet 10 Mg PO DAILY 07/31/13 Reported Losartan Potassium 100 Mg Tablet 100 Mg PO DAILY 07/31/13 Reported Bupropion Xl (Bupropion Hcl) 300 Mg Tab.er.24h 300 Mg PO DAILY 07/31/13 Reported Impression . 1. Acute respiratory distress secondary to exacerbation of myasthenia gravis. 2. Exacerbation of myasthenia gravis. 3. Peripheral neuropathy. 4. Anxiety/depression. 5. Obstructive sleep apnea. Plan . D/C HOME TODAY OK BY ME FOLLOW UP NEEDED LYLA VÁZQUEZ MD Apr 15, 2017 13:43
[2017-04-15 14:30] VITALS: BP 156/70
[2017-04-15] MEDS: HYDROcodone/APAP 7.5/325MG 1 TAB TABLET PO PRN (15:13)
[2017-04-15] MEDS: ALPRAZolam 1 MG TABLET PO PRN ×2 (15:13→19:43)
--- NOTE | 2017-04-15 15:28 | PDOC ---
PROGRESS NOTES Assessment 1. Myasthenia gravis exacerbation. She was previously hospitalized and received 5 plasma exchange. She went home without prednisone and seemed to worsen. She has not received an additional 3 plasma exchanges and is doing better. 2. She fell prior to my arrival while getting out of the shower. She has a prior left hip replacement and there is concern that the hip may have dislocated. An x-ray has been performed but the result is pending. Plan 1. Continue prednisone for the myasthenia gravis. If she does not respond to this low dosage she may require more prednisone and consideration for other immunosuppressants. 2. If she has a hip dislocation then she will need a consultation from orthopedic surgery. She may not be dismissed at this time. Subjective I was so stupid. I should've called for help getting out of the shower. I know I have a problem raising my leg. I'm so mad at myself. I have to get home to my daughter. She attempted suicide 2 weeks ago. Both my and I have been having major health issues. I'm afraid this is going to affect her. Objective Vital Signs Date Time Temp Pulse Resp B/P (MAP) Pulse Ox O2 Delivery O2 Flow Rate FiO2 04/15/17 15:13 20 94 Room Air 2.0 04/15/17 14:30 97.9 96 156/70 (98) 97.9 PHYSICAL EXAM She was alert, awake and cooperative. She was upset and crying. She would not move her left leg. The nurses gently shifted her in bed using the draw sheet which was still uncomfortable. She is able to follow commands well. She was alert and cooperative and fully oriented. The eyes were conjugate although she complained of double vision. The face was symmetric. The speech was strong and clear. Movements of the arms were symmetric and well coordinated. Strength in her ankles was full. Movement of the legs was painful with the left hip. Sensation was intact to light touch. Review of Relevant I have reviewed the following items antonio (where applicable) has been applied. Labs Laboratory Tests Test 04/13/17 20:30 04/14/17 03:42 04/15/17 04:45 04/15/17 04:55 White Blood Count 13.1 x10^3/uL (4.0-11.0) 10.6 x10^3/uL (4.0-11.0) 10.4 x10^3/uL (4.0-11.0) Red Blood Count 4.92 x10^6/uL (3.50-5.40) 4.83 x10^6/uL (3.50-5.40) 4.47 x10^6/uL (3.50-5.40) Hemoglobin 12.4 g/dL (12.0-15.5) 12.5 g/dL (12.0-15.5) 11.3 g/dL (12.0-15.5) Hematocrit 39.7 % (36.0-47.0) 39.0 % (36.0-47.0) 36.1 % (36.0-47.0) Mean Corpuscular Volume 81 fL (79-100) 81 fL (79-100) 81 fL (79-100) Mean Corpuscular Hemoglobin 25 pg (25-35) 26 pg (25-35) 25 pg (25-35) Mean Corpuscular Hemoglobin Concent 31 g/dL (31-37) 32 g/dL (31-37) 31 g/dL (31-37) Red Cell Distribution Width 19.0 % (11.5-14.5) 18.8 % (11.5-14.5) 19.1 % (11.5-14.5) Platelet Count 431 x10^3/uL (140-400) 408 x10^3/uL (140-400) 366 x10^3/uL (140-400) Neutrophils (%) (Auto) 62 % (31-73) 55 % (31-73) 54 % (31-73) Lymphocytes (%) (Auto) 28 % (24-48) 34 % (24-48) 37 % (24-48) Monocytes (%) (Auto) 9 % (0-9) 9 % (0-9) 8 % (0-9) Eosinophils (%) (Auto) 1 % (0-3) 2 % (0-3) 1 % (0-3) Basophils (%) (Auto) 1 % (0-3) 1 % (0-3) 0 % (0-3) Neutrophils # (Auto) 8.1 x10^3uL (1.8-7.7) 5.8 x10^3uL (1.8-7.7) 5.6 x10^3uL (1.8-7.7) Lymphocytes # (Auto) 3.6 x10^3/uL (1.0-4.8) 3.6 x10^3/uL (1.0-4.8) 3.8 x10^3/uL (1.0-4.8) Monocytes # (Auto) 1.2 x10^3/uL (0.0-1.1) 1.0 x10^3/uL (0.0-1.1) 0.8 x10^3/uL (0.0-1.1) Eosinophils # (Auto) 0.1 x10^3/uL (0.0-0.7) 0.2 x10^3/uL (0.0-0.7) 0.1 x10^3/uL (0.0-0.7) Basophils # (Auto) 0.1 x10^3/uL (0.0-0.2) 0.1 x10^3/uL (0.0-0.2) 0.0 x10^3/uL (0.0-0.2) Prothrombin Time 15.1 SEC (11.7-14.0) Prothromb Time International Ratio 1.3 (0.8-1.1) Activated Partial Thromboplast Time 32 SEC (24-38) Fibrinogen 127 mg/dL (200-440) Sodium Level 144 mmol/L (136-145) 146 mmol/L (136-145) 145 mmol/L (136-145) Potassium Level 3.7 mmol/L (3.5-5.1) 3.6 mmol/L (3.5-5.1) 3.5 mmol/L (3.5-5.1) Chloride Level 110 mmol/L (98-107) 110 mmol/L (98-107) 110 mmol/L (98-107) Carbon Dioxide Level 27 mmol/L (21-32) 33 mmol/L (21-32) 30 mmol/L (21-32) Anion Gap 7 (6-14) 3 (6-14) 5 (6-14) Blood Urea Nitrogen 14 mg/dL (7-20) 16 mg/dL (7-20) 18 mg/dL (7-20) Creatinine 0.7 mg/dL (0.6-1.0) 0.6 mg/dL (0.6-1.0) 0.5 mg/dL (0.6-1.0) Estimated GFR (Cockcroft-Gault) 83.5 99.7 123.1 BUN/Creatinine Ratio 20 (6-20) Glucose Level 88 mg/dL (70-99) 86 mg/dL (70-99) 83 mg/dL (70-99) Calcium Level 8.7 mg/dL (8.5-10.1) 9.3 mg/dL (8.5-10.1) 9.5 mg/dL (8.5-10.1) Total Bilirubin 0.2 mg/dL (0.2-1.0) Aspartate Amino Transf (AST/SGOT) 12 U/L (15-37) Alanine Aminotransferase (ALT/SGPT) 17 U/L (14-59) Alkaline Phosphatase 64 U/L (46-116) Total Protein 5.0 g/dL (6.4-8.2) Albumin 3.3 g/dL (3.4-5.0) Albumin/Globulin Ratio 1.9 (1.0-1.7) Laboratory Tests Test 04/15/17 04:45 04/15/17 04:55 White Blood Count 10.4 x10^3/uL (4.0-11.0) Red Blood Count 4.47 x10^6/uL (3.50-5.40) Hemoglobin 11.3 g/dL (12.0-15.5) Hematocrit 36.1 % (36.0-47.0) Mean Corpuscular Volume 81 fL (79-100) Mean Corpuscular Hemoglobin 25 pg (25-35) Mean Corpuscular Hemoglobin Concent 31 g/dL (31-37) Red Cell Distribution Width 19.1 % (11.5-14.5) Platelet Count 366 x10^3/uL (140-400) Neutrophils (%) (Auto) 54 % (31-73) Lymphocytes (%) (Auto) 37 % (24-48) Monocytes (%) (Auto) 8 % (0-9) Eosinophils (%) (Auto) 1 % (0-3) Basophils (%) (Auto) 0 % (0-3) Neutrophils # (Auto) 5.6 x10^3uL (1.8-7.7) Lymphocytes # (Auto) 3.8 x10^3/uL (1.0-4.8) Monocytes # (Auto) 0.8 x10^3/uL (0.0-1.1) Eosinophils # (Auto) 0.1 x10^3/uL (0.0-0.7) Basophils # (Auto) 0.0 x10^3/uL (0.0-0.2) Sodium Level 145 mmol/L (136-145) Potassium Level 3.5 mmol/L (3.5-5.1) Chloride Level 110 mmol/L (98-107) Carbon Dioxide Level 30 mmol/L (21-32) Anion Gap 5 (6-14) Blood Urea Nitrogen 18 mg/dL (7-20) Creatinine 0.5 mg/dL (0.6-1.0) Estimated GFR (Cockcroft-Gault) 123.1 Glucose Level 83 mg/dL (70-99) Calcium Level 9.5 mg/dL (8.5-10.1) Medications Current Medications Pyridostigmine Jones (Mestinon) 60 mg 1X STAT PO Last administered on 15:37; Start 04/11/17 at 15:08; Stop 04/11/17 at 15:09; Status DC Sodium Chloride 1,000 ml @ 100 mls/hr Q10H IV Last administered on 04/11/17 15:37; Start 04/11/17 at 15:07; Stop 04/12/17 at 01:06; Status DC Magnesium Sulfate/ Dextrose 50 ml @ 25 mls/hr 1X ONCE IV Last administered on 04/11/17 16:36; Start 04/11/17 at 16:30; Stop 04/11/17 at 18:29; Status DC Alprazolam (Xanax) 1 mg PRN TID PRN PO ANXIETY Last administered on 04/15/17 15:13; Start 04/11/17 at 16:00 Amlodipine Besylate (Norvasc) 10 mg DAILY PO Last administered on 04/15/17 08 :52; Start 04/12/17 at 09:00 Atorvastatin Calcium (Lipitor) 10 mg QHS PO Last administered on 04/14/17 20: 58; Start 04/11/17 at 21:00 Acetaminophen/ Hydrocodone Bitart (Lortab 7.5/325) 1 tab PRN Q6HRS PRN PO PAIN Last administered on 04/15/17 15:13; Start 04/11/17 at 16:00 Pyridostigmine Jones (Mestinon) 60 mg QID PO Last administered on 04/15/17 13:41; Start 04/11/17 at 17:00 Bupropion HCl (Wellbutrin Xl) 300 mg DAILY PO Last administered on 04/15/17 08:51; Start 04/12/17 at 09:00 Vitamin D (Vitamin D3) 1,000 unit DAILY PO Last administered on 04/15/17 08: 51; Start 04/12/17 at 09:00 Duloxetine HCl (Cymbalta) 120 mg DAILY PO Last administered on 04/15/17 08:52 ; Start 04/12/17 at 09:00 Gabapentin (Neurontin) 300 mg TID PO Last administered on 04/15/17 13:41; Start 04/11/17 at 21:00 Losartan Potassium (Cozaar) 100 mg DAILY PO Last administered on 04/15/17 08: 51; Start 04/12/17 at 09:00 Diphenhydramine HCl (Benadryl) 25 mg PRN QHS PRN PO INSOMNIA Last administered on 04/14/17 15:30; Start 04/11/17 at 16:15 Prednisone (Prednisone) 20 mg DAILY PO Last administered on 04/15/17 08:52; Start 04/11/17 at 17:15 Calcium Carbonate/ Glycine (Oscal) 500 mg TIDAFTMEAL PO Last administered on 13:41; Start 04/11/17 at 18:00 Famotidine (Pepcid) 20 mg DAILY PO Last administered on 04/15/17 08:51; Start 04/12/17 at 09:00 Ergocalciferol (Vitamin D2) 50,000 unit QMTH PO ; Start 04/13/17 at 16:00 Heparin Sodium (Porcine) (Hep Lock Adult) 500 unit 1X ONCE IV Last administered on 04/11/17 17:28; Start 04/11/17 at 17:30; Stop 04/11/17 at 17:31 ; Status DC Heparin Sodium (Porcine) (Heparin Sodium) 2,000 unit 1X ONCE IV Last administered on 04/12/17 09:42; Start 04/12/17 at 08:45; Stop 04/12/17 at 08:46 ; Status DC Diphenhydramine HCl (Benadryl) 25 mg 1X PRN PRN IV ITCHING; Start 04/12/17 at 08:45; Stop 04/13/17 at 08:44; Status DC Diphenhydramine HCl (Benadryl) 25 mg 1X PRN PRN IV ITCHING; Start 04/12/17 at 08:45; Stop 04/13/17 at 08:44; Status DC Albumin Human 2,000 ml @ 0 mls/hr 1X ONCE IV ; Start 04/12/17 at 09:00; Stop 04/12/17 at 09:01; Status DC Albumin Human 1,500 ml @ 0 mls/hr 1X ONCE IV ; Start 04/13/17 at 09:00; Stop 04/13/17 at 09:02; Status DC Heparin Sodium (Porcine) (Heparin Sodium) 2,000 unit 1X ONCE IV ; Start at 09:00; Stop 04/13/17 at 09:02; Status DC Potassium Chloride (Klor-Con) 40 meq TID PO Last administered on 04/14/17 09: 41; Start 04/13/17 at 14:00; Stop 04/14/17 at 09:01; Status DC Albumin Human 1,500 ml @ 0 mls/hr 1X ONCE IV Last administered on 04/13/17 17:53; Start 04/13/17 at 15:30; Stop 04/13/17 at 15:31; Status DC Heparin Sodium (Porcine) (Heparin Sodium) 2,000 unit 1X ONCE IV Last administered on 04/13/17 17:51; Start 04/13/17 at 15:30; Stop 04/13/17 at 15:31 ; Status DC Albumin Human 2,000 ml @ 125 mls/hr 1X ONCE IV Last administered on 12:53; Start 04/14/17 at 11:15; Stop 04/15/17 at 03:14; Status DC Active Scripts Active Hydrocodone-Apap 7.5-325 (Hydrocodone Bit/Acetaminophen) 1 Each Tablet 1 Tab PO PRN Q6HRS PRN Amlodipine Besylate 10 Mg Tablet 10 Mg PO DAILY Reported Mestinon (Pyridostigmine Jones) 60 Mg Tablet 60 Mg PO QID Cymbalta (Duloxetine Hcl) 60 Mg Capsule.dr 2 Cap PO DAILY Gabapentin 300 Mg Capsule 300 Mg PO TID Xanax (Alprazolam) 0.5 Mg Tablet 1 Mg PO PRN TID PRN Vitamin D-3 (Cholecalciferol (Vitamin D3)) 2,000 Unit Tablet 1,000 Unit PO DAILY06 Atorvastatin Calcium 10 Mg Tablet 10 Mg PO DAILY Losartan Potassium 100 Mg Tablet 100 Mg PO DAILY Bupropion Xl (Bupropion Hcl) 300 Mg Tab.er.24h 300 Mg PO DAILY Vitals/I & O Vital Sign - Last 24 Hours 04/14/17 04/14/17 04/14/17 04/14/17 15:32 19:00 20:00 20:59 Temp 97.7 98.2 97.7 98.2 Pulse 73 79 Resp 18 18 B/P (MAP) 113/60 (77) 106/42 (63) Pulse Ox 94 92 O2 Delivery BiPAP/CPAP Room Air Room Air Room Air O2 Flow Rate 2.0 04/14/17 04/14/17 04/15/17 04/15/17 21:59 23:00 03:00 07:15 Temp 98.1 97.0 98.1 98.1 97.0 98.1 Pulse 71 70 64 Resp 18 18 18 B/P (MAP) 102/49 (66) 134/65 (88) 133/63 (86) Pulse Ox 95 97 98 O2 Delivery Room Air BiPAP/CPAP BiPAP/CPAP BiPAP/CPAP 04/15/17 04/15/17 04/15/17 04/15/17 07:50 08:51 08:52 10:20 Temp 97.6 97.6 Pulse 64 64 82 Resp 18 B/P (MAP) 133/63 133/63 145/62 (89) Pulse Ox 99 O2 Delivery Room Air BiPAP/CPAP O2 Flow Rate 2.0 04/15/17 04/15/17 14:30 15:13 Temp 97.9 97.9 Pulse 96 Resp 19 20 B/P (MAP) 156/70 (98) Pulse Ox 94 94 O2 Delivery BiPAP/CPAP Room Air O2 Flow Rate 2.0 SAPPHIRE BARRIENTOS MD Apr 15, 2017 15:28
--- NOTE | 2017-04-15 16:44 | RAD ---
Left hip and AP pelvis, 4 images CLINICAL HISTORY: Patient fell left hip pain COMPARISON: August 17, 2016 exam. There is dislocation of the patient's left total hip replacement. The head of the femoral component is located superior and posterior to the acetabular component. No acute fracture is seen. The acetabular and femoral components show no evidence of loosening or infection. Again seen is a long sideplate extending from the greater trochanter to the shaft of the proximal femur transfixed by 2 cerclage wires in the proximal femur. No pelvic fracture is identified. IMPRESSION: Dislocated left total hip replacement. Electronically signed by: Janelle Burt MD (04/15/2017 4:40 PM) [facility] – [place]
[2017-04-15] MEDS: KETOROLAC 30 MG/ML INJ. IV PRN ×2 (17:19→23:09)
[2017-04-15] MEDS: ATORVASTATIN CALCIUM 10 MG TABLET. PO SCH (19:43)
[2017-04-15] MEDS: MORPHINE SULFATE 4 MG/ML DISP.SYRIN. IV PRN ×2 (19:44→21:28)
[2017-04-15 19:47] VITALS: BP 133/52
[2017-04-15 23:10] VITALS: BP 144/47
[2017-04-16 03:20] VITALS: BP 116/54
[2017-04-16] MEDS: MORPHINE SULFATE 4 MG/ML DISP.SYRIN. IV PRN ×6 (03:55→23:29)
[2017-04-16 04:59] LABS: BASO # 0.1 x10^3/uL (0.0-0.2); BASO % 1 % (0-3); EOS % 2 % (0-3); HEMATOCRIT 36.6 % (36.0-47.0); HEMOGLOBIN 11.5 g/dL (12.0-15.5); LYMPH # 3.4 x10^3/uL (1.0-4.8); LYMPH % 28 % (24-48); MEAN CORPUSCULAR HEMOGLOBIN 26 pg (25-35); MEAN CORPUSCULAR HGB CONC 31 g/dL (31-37); MEAN CORPUSCULAR VOLUME 81 fL (79-100); MONO % 8 % (0-9); NEUT % 62 % (31-73); PLATELET COUNT 386 x10^3/uL (140-400); RED BLOOD COUNT 4.49 x10^6/uL (3.50-5.40); RED CELL DISTRIBUTION WIDTH 18.8 % (11.5-14.5); WHITE BLOOD COUNT 11.9 x10^3/uL (4.0-11.0)
[2017-04-16 05:46] LABS: CALCIUM 9.7 mg/dL (8.5-10.1); CREATININE 0.6 mg/dL (0.6-1.0); GFR 99.7; POTASSIUM 3.7 mmol/L (3.5-5.1)
[2017-04-16] MEDS ORDERED: MORPHINE SULFATE 5 MG, KETOROLAC 30 MG, ROPIVacaine 0.5% PF 60 ML, EPINEPHrine 0.5 MG i... INT ART ONE ×5 (06:00)
[2017-04-16 06:32] VITALS: BP 112/54
[2017-04-16] MEDS ORDERED: ROCURONIUM 50 MG/5 ML VIAL. ONE (07:24)
[2017-04-16] MEDS ORDERED: PROPOFOL 20 ML IV ONE (07:24)
[2017-04-16] MEDS ORDERED: fentaNYL PF VIAL 250 MCG/5 ML VIAL ONE (07:24)
[2017-04-16] MEDS ORDERED: DEXAMETHASONE SOD PHOS 20 MG/5 ML VIAL. ONE (07:24)
[2017-04-16] MEDS ORDERED: LIDOCAINE 2% PF Vial for OR 5 ML VIAL. ONE (07:24)
[2017-04-16] MEDS ORDERED: ONDANSETRON PF 4 MG/2 ML VIAL. ONE (07:24)
[2017-04-16] MEDS ORDERED: IV NORMAL SALINE 1000ML BAG 1,000 ML IV ONE (08:00)
[2017-04-16] MEDS ORDERED: CLINDAMYCIN 600MG PREMIX 50 ML IV PRN ×3 (08:30→12:30)
[2017-04-16] MEDS ORDERED: GLYCOPYRROLATE 1 MG/5 ML VIAL. ONE (08:30)
[2017-04-16] MEDS ORDERED: HYDROCORTISONE SOD SUCC/PF 100 MG/2 ML VIAL. ONE (08:32)
[2017-04-16] MEDS: buPROPion XL 150 MG TAB.ER.24H. PO SCH (09:00)
[2017-04-16] MEDS: CHOLECALCIFEROL (VITAMIN D3) 1,000 UNIT TABLET PO SCH (09:00)
[2017-04-16] MEDS: predniSONE 20 MG TABLET PO SCH (09:00)
[2017-04-16] MEDS: DULoxetine HCL 30 MG CAPSULE.DR PO SCH (09:00)
[2017-04-16] MEDS: FAMOTIDINE 20 MG TABLET. PO SCH (09:00)
[2017-04-16] MEDS: amLODIPine BESYLATE 10 MG TABLET PO SCH (09:00)
[2017-04-16] MEDS: PYRIDOSTIGMINE BROMIDE 60 MG TABLET PO SCH ×4 (09:00→20:42)
[2017-04-16] MEDS: GABAPENTIN 300 MG CAPSULE. PO SCH ×3 (09:00→20:42)
[2017-04-16] MEDS: LOSARTAN POTASSIUM 50 MG TABLET. PO SCH (09:00)
[2017-04-16] MEDS: CALCIUM CARBONATE 500 MG TABLET PO SCH ×3 (09:00→18:18)
[2017-04-16] MEDS ORDERED: LIDOCAINE 1% PF 2 ML VIAL. ID PRN (10:00)
[2017-04-16] MEDS ORDERED: MORPHINE SULFATE 2 MG/ML DISP.SYRIN. IV PRN (10:00)
[2017-04-16] MEDS ORDERED: ONDANSETRON PF 4 MG/2 ML VIAL. IV PRN (10:00)
[2017-04-16] MEDS ORDERED: HYDROmorphone 2 MG/ML VIAL IV PRN (10:00)
[2017-04-16] MEDS ORDERED: fentaNYL PF VIAL 100 MCG/2 ML VIAL IV PRN ×2 (10:00)
[2017-04-16] MEDS ORDERED: PROCHLORPERAZINE 10 MG/2 ML VIAL. IV PRN (10:00)
[2017-04-16] MEDS ORDERED: IV RINGERS,LACTATED 1000ML 1,000 ML IV SCH (10:00)
[2017-04-16] MEDS ORDERED: SEVOFLURANE > 120 MINUTES. IH ONE (10:14)
[2017-04-16] MEDS ORDERED: PHENYLEPHRINE in 0.9% NACL PF 1 MG/10 ML DISP.SYRIN. IV ONE ×2 (10:14→11:24)
--- NOTE | 2017-04-16 12:28 | PDOC4 ---
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 She states that she fell in the shower most recently while in the hospital for weakness and possible myasthenia gravis exacerbation. I had gone over with her the findings that she sustained a dislocation despite the retaining ring from the constrained arthroplasty mechanism being in place. It is very difficult to explain how dislocation can occur with the constrained mechanism and the intact ring. I therefore described to her the possibility of revision to another locking mechanism since at a minimum open reduction as necessary. We talked through risks benefits postoperative course of the surgery quitting possibility of infection nerve or blood vessel damage medical or other anesthetic complications among others all her questions were answered she wishes to proceed with surgical evaluation and treatment. Operative text: Patient was identified procedure verified patient placed in the supine position on the operating table. After adequate amounts of general endotracheal anesthesia were administered she was placed in the decubitus position left side up using the Stulberg hip positioner and all bony prominences are well-padded. The left hip was prepped and draped in standard sterile fashion and after timeout was performed patient procedure identified and verified and incision was made constituting a standard posterior approach to the hip. Fascia was divided in line with the iliotibial band and gluteal fibers hip was dislocated posterior superiorly as expected. Her previous trochanteric claw fixation appeared to be healed with the claw already being served its purpose there was some bony avulsion superiorly but was not able to be reattached and therefore elected to remove the claw as a source of potential impingement. Femoral head was then removed the well fixed stem was tucked anteriorly and the Christine constrained ring was noted to be in place. Due to the dilemma that dislocation apparently happened with an intact ring and was not readily explainable given her history I elected to proceed with revising the well fixed acetabular component to allow cup placement and an alternative locking mechanism by [employer]. The single superior screw was removed from the existing well fixed acetabular component and the Christine acetabular removal system was used and although the cup was extremely well grown in was removed with essentially no bone loss. Reaming from the existing size 56 to a size 58 cup was carried out excellent bleeding bone was noted and the [employer] constrained acetabular component was impacted into place in proper version and inclination fixation carried out with 3 screws providing excellent fixation superiorly and posterior superiorly trial fitting was carried out with a size 36 head and the constrained mechanism which did well in terms of her leg length and offset rastafarian trial components were removed thorough irrigation carried out with normal saline solution and the [employer] constrained mechanism was assembled on the back table with a 36 mm cobalt chrome Christine head which was then placed on the Talbert taper and the constrained liner reduced and captured in the acetabulum and the Talbert taper was well fixated. Thorough irrigation again carried out normal saline solution intra-articular pain mixture was introduced into the capsule and surrounding tissues layered closure accomplished of the iliotibial band and gluteal fascia as well as deep subcutaneous layer with Ethibond at the and a running PDS strata fix suture at the fascial layer after placement of Hemovac and layered Vicryls closure as well as skin closure with nylon and a mattress-type fashion to parvin her skin edges. A wound VAC was placed due to her previous documented wound healing issues and drainage issues and she was returned recovery room in stable condition having tolerated the procedure well JAYLEEN SONG MD Apr 16, 2017 12:25
[2017-04-16 15:00] VITALS: BP 111/47
[2017-04-16] MEDS: CLINDAMYCIN 600MG PREMIX 50 ML IV SCH ×2 (15:30→21:38)
--- NOTE | 2017-04-16 16:45 | PDOC ---
PROGRESS NOTES Chief Complaint Chief Complaint 1. Gen weakness, myasthenia flare -s/p plasmapharesis (3 sessions) 2, OBEsity, HTN, etc - chronic stable 3. Normal Grief 4. Left hip dislocation 5. FAll 04/15/17 History of Present Illness History of Present Illness Was about to dc home monday after completion of 3 plama exchanges, but fell that day NOw hip dislocated - hx of prosthetic hip same side Underwent oR today TRansferred to 4th floor now PLAn: PAin meds post op LAbs psot op PT.OT MIght need AR[facility] Vitals Vitals Vital Signs Date Time Temp Pulse Resp B/P (MAP) Pulse Ox O2 Delivery O2 Flow Rate FiO2 04/16/17 13:05 98.0 78 20 113/60 92 3 98.0 04/16/17 12:50 Nasal Cannula Physical Exam General: Alert, Oriented X3, Cooperative, No acute distress, Other (down spirit ) Heart: Regular rate, Normal S1, Normal S2 Lungs: Clear Abdomen: Normal bowel sounds, Soft, No tenderness, No hepatosplenomegaly, No masses Extremities: No clubbing, No cyanosis, No edema, Normal pulses, No tenderness/ swelling Skin: No rashes, No breakdown, No significant lesion Labs LABS Laboratory Tests Test 04/16/17 03:20 White Blood Count 11.9 x10^3/uL (4.0-11.0) Red Blood Count 4.49 x10^6/uL (3.50-5.40) Hemoglobin 11.5 g/dL (12.0-15.5) Hematocrit 36.6 % (36.0-47.0) Mean Corpuscular Volume 81 fL (79-100) Mean Corpuscular Hemoglobin 26 pg (25-35) Mean Corpuscular Hemoglobin Concent 31 g/dL (31-37) Red Cell Distribution Width 18.8 % (11.5-14.5) Platelet Count 386 x10^3/uL (140-400) Neutrophils (%) (Auto) 62 % (31-73) Lymphocytes (%) (Auto) 28 % (24-48) Monocytes (%) (Auto) 8 % (0-9) Eosinophils (%) (Auto) 2 % (0-3) Basophils (%) (Auto) 1 % (0-3) Neutrophils # (Auto) 7.3 x10^3uL (1.8-7.7) Lymphocytes # (Auto) 3.4 x10^3/uL (1.0-4.8) Monocytes # (Auto) 0.9 x10^3/uL (0.0-1.1) Eosinophils # (Auto) 0.2 x10^3/uL (0.0-0.7) Basophils # (Auto) 0.1 x10^3/uL (0.0-0.2) Sodium Level 142 mmol/L (136-145) Potassium Level 3.7 mmol/L (3.5-5.1) Chloride Level 106 mmol/L (98-107) Carbon Dioxide Level 30 mmol/L (21-32) Anion Gap 6 (6-14) Blood Urea Nitrogen 19 mg/dL (7-20) Creatinine 0.6 mg/dL (0.6-1.0) Estimated GFR (Cockcroft-Gault) 99.7 Glucose Level 72 mg/dL (70-99) Calcium Level 9.7 mg/dL (8.5-10.1) Review of Systems Review of Systems pain post op, no emesis, abd pain, no more weakness, no SOA, no CP Assessment and Plan Assessmemt and Plan Problems Medical Problems: (1) Respiratory depression Status: Acute Problems: Comment Review of Relevant I have reviewed the following items antonio (where applicable) has been applied. Labs Laboratory Tests Test 04/15/17 04:45 04/15/17 04:55 04/16/17 03:20 White Blood Count 10.4 x10^3/uL (4.0-11.0) 11.9 x10^3/uL (4.0-11.0) Red Blood Count 4.47 x10^6/uL (3.50-5.40) 4.49 x10^6/uL (3.50-5.40) Hemoglobin 11.3 g/dL (12.0-15.5) 11.5 g/dL (12.0-15.5) Hematocrit 36.1 % (36.0-47.0) 36.6 % (36.0-47.0) Mean Corpuscular Volume 81 fL (79-100) 81 fL (79-100) Mean Corpuscular Hemoglobin 25 pg (25-35) 26 pg (25-35) Mean Corpuscular Hemoglobin Concent 31 g/dL (31-37) 31 g/dL (31-37) Red Cell Distribution Width 19.1 % (11.5-14.5) 18.8 % (11.5-14.5) Platelet Count 366 x10^3/uL (140-400) 386 x10^3/uL (140-400) Neutrophils (%) (Auto) 54 % (31-73) 62 % (31-73) Lymphocytes (%) (Auto) 37 % (24-48) 28 % (24-48) Monocytes (%) (Auto) 8 % (0-9) 8 % (0-9) Eosinophils (%) (Auto) 1 % (0-3) 2 % (0-3) Basophils (%) (Auto) 0 % (0-3) 1 % (0-3) Neutrophils # (Auto) 5.6 x10^3uL (1.8-7.7) 7.3 x10^3uL (1.8-7.7) Lymphocytes # (Auto) 3.8 x10^3/uL (1.0-4.8) 3.4 x10^3/uL (1.0-4.8) Monocytes # (Auto) 0.8 x10^3/uL (0.0-1.1) 0.9 x10^3/uL (0.0-1.1) Eosinophils # (Auto) 0.1 x10^3/uL (0.0-0.7) 0.2 x10^3/uL (0.0-0.7) Basophils # (Auto) 0.0 x10^3/uL (0.0-0.2) 0.1 x10^3/uL (0.0-0.2) Sodium Level 145 mmol/L (136-145) 142 mmol/L (136-145) Potassium Level 3.5 mmol/L (3.5-5.1) 3.7 mmol/L (3.5-5.1) Chloride Level 110 mmol/L (98-107) 106 mmol/L (98-107) Carbon Dioxide Level 30 mmol/L (21-32) 30 mmol/L (21-32) Anion Gap 5 (6-14) 6 (6-14) Blood Urea Nitrogen 18 mg/dL (7-20) 19 mg/dL (7-20) Creatinine 0.5 mg/dL (0.6-1.0) 0.6 mg/dL (0.6-1.0) Estimated GFR (Cockcroft-Gault) 123.1 99.7 Glucose Level 83 mg/dL (70-99) 72 mg/dL (70-99) Calcium Level 9.5 mg/dL (8.5-10.1) 9.7 mg/dL (8.5-10.1) Laboratory Tests Test 04/16/17 03:20 White Blood Count 11.9 x10^3/uL (4.0-11.0) Red Blood Count 4.49 x10^6/uL (3.50-5.40) Hemoglobin 11.5 g/dL (12.0-15.5) Hematocrit 36.6 % (36.0-47.0) Mean Corpuscular Volume 81 fL (79-100) Mean Corpuscular Hemoglobin 26 pg (25-35) Mean Corpuscular Hemoglobin Concent 31 g/dL (31-37) Red Cell Distribution Width 18.8 % (11.5-14.5) Platelet Count 386 x10^3/uL (140-400) Neutrophils (%) (Auto) 62 % (31-73) Lymphocytes (%) (Auto) 28 % (24-48) Monocytes (%) (Auto) 8 % (0-9) Eosinophils (%) (Auto) 2 % (0-3) Basophils (%) (Auto) 1 % (0-3) Neutrophils # (Auto) 7.3 x10^3uL (1.8-7.7) Lymphocytes # (Auto) 3.4 x10^3/uL (1.0-4.8) Monocytes # (Auto) 0.9 x10^3/uL (0.0-1.1) Eosinophils # (Auto) 0.2 x10^3/uL (0.0-0.7) Basophils # (Auto) 0.1 x10^3/uL (0.0-0.2) Sodium Level 142 mmol/L (136-145) Potassium Level 3.7 mmol/L (3.5-5.1) Chloride Level 106 mmol/L (98-107) Carbon Dioxide Level 30 mmol/L (21-32) Anion Gap 6 (6-14) Blood Urea Nitrogen 19 mg/dL (7-20) Creatinine 0.6 mg/dL (0.6-1.0) Estimated GFR (Cockcroft-Gault) 99.7 Glucose Level 72 mg/dL (70-99) Calcium Level 9.7 mg/dL (8.5-10.1) Medications Current Medications Pyridostigmine Corona (Mestinon) 60 mg 1X STAT PO Last administered on 15:37; Start 04/11/17 at 15:08; Stop 04/11/17 at 15:09; Status DC Sodium Chloride 1,000 ml @ 100 mls/hr Q10H IV Last administered on 04/11/17 15:37; Start 04/11/17 at 15:07; Stop 04/12/17 at 01:06; Status DC Magnesium Sulfate/ Dextrose 50 ml @ 25 mls/hr 1X ONCE IV Last administered on 04/11/17 16:36; Start 04/11/17 at 16:30; Stop 04/11/17 at 18:29; Status DC Alprazolam (Xanax) 1 mg PRN TID PRN PO ANXIETY Last administered on 04/15/17 19:43; Start 04/11/17 at 16:00 Amlodipine Besylate (Norvasc) 10 mg DAILY PO Last administered on 04/15/17 08 :52; Start 04/12/17 at 09:00 Atorvastatin Calcium (Lipitor) 10 mg QHS PO Last administered on 04/15/17 19: 43; Start 04/11/17 at 21:00 Acetaminophen/ Hydrocodone Bitart (Lortab 7.5/325) 1 tab PRN Q6HRS PRN PO MILD - MODERATE PAIN Last administered on 04/15/17 15:13; Start 04/11/17 at 16:00 Pyridostigmine Corona (Mestinon) 60 mg QID PO Last administered on 04/15/17 19:43; Start 04/11/17 at 17:00 Bupropion HCl (Wellbutrin Xl) 300 mg DAILY PO Last administered on 04/15/17 08:51; Start 04/12/17 at 09:00 Vitamin D (Vitamin D3) 1,000 unit DAILY PO Last administered on 04/15/17 08: 51; Start 04/12/17 at 09:00 Duloxetine HCl (Cymbalta) 120 mg DAILY PO Last administered on 04/15/17 08:52 ; Start 04/12/17 at 09:00 Gabapentin (Neurontin) 300 mg TID PO Last administered on 04/15/17 19:43; Start 04/11/17 at 21:00 Losartan Potassium (Cozaar) 100 mg DAILY PO Last administered on 04/15/17 08: 51; Start 04/12/17 at 09:00 Diphenhydramine HCl (Benadryl) 25 mg PRN QHS PRN PO INSOMNIA Last administered on 04/14/17 15:30; Start 04/11/17 at 16:15 Prednisone (Prednisone) 20 mg DAILY PO Last administered on 04/15/17 08:52; Start 04/11/17 at 17:15 Calcium Carbonate/ Glycine (Oscal) 500 mg TIDAFTMEAL PO Last administered on 17:19; Start 04/11/17 at 18:00 Famotidine (Pepcid) 20 mg DAILY PO Last administered on 04/15/17 08:51; Start 04/12/17 at 09:00 Ergocalciferol (Vitamin D2) 50,000 unit QMTH PO ; Start 04/13/17 at 16:00 Heparin Sodium (Porcine) (Hep Lock Adult) 500 unit 1X ONCE IV Last administered on 04/11/17 17:28; Start 04/11/17 at 17:30; Stop 04/11/17 at 17:31 ; Status DC Heparin Sodium (Porcine) (Heparin Sodium) 2,000 unit 1X ONCE IV Last administered on 04/12/17 09:42; Start 04/12/17 at 08:45; Stop 04/12/17 at 08:46 ; Status DC Diphenhydramine HCl (Benadryl) 25 mg 1X PRN PRN IV ITCHING; Start 04/12/17 at 08:45; Stop 04/13/17 at 08:44; Status DC Diphenhydramine HCl (Benadryl) 25 mg 1X PRN PRN IV ITCHING; Start 04/12/17 at 08:45; Stop 04/13/17 at 08:44; Status DC Albumin Human 2,000 ml @ 0 mls/hr 1X ONCE IV ; Start 04/12/17 at 09:00; Stop 04/12/17 at 09:01; Status DC Albumin Human 1,500 ml @ 0 mls/hr 1X ONCE IV ; Start 04/13/17 at 09:00; Stop 04/13/17 at 09:02; Status DC Heparin Sodium (Porcine) (Heparin Sodium) 2,000 unit 1X ONCE IV ; Start at 09:00; Stop 04/13/17 at 09:02; Status DC Potassium Chloride (Klor-Con) 40 meq TID PO Last administered on 04/14/17 09: 41; Start 04/13/17 at 14:00; Stop 04/14/17 at 09:01; Status DC Albumin Human 1,500 ml @ 0 mls/hr 1X ONCE IV Last administered on 04/13/17 17:53; Start 04/13/17 at 15:30; Stop 04/13/17 at 15:31; Status DC Heparin Sodium (Porcine) (Heparin Sodium) 2,000 unit 1X ONCE IV Last administered on 04/13/17 17:51; Start 04/13/17 at 15:30; Stop 04/13/17 at 15:31 ; Status DC Albumin Human 2,000 ml @ 125 mls/hr 1X ONCE IV Last administered on 12:53; Start 04/14/17 at 11:15; Stop 04/15/17 at 03:14; Status DC Ketorolac Tromethamine (Toradol) 30 mg PRN Q6HRS PRN IV PAIN Last administered on 04/15/17 23:09; Start 04/15/17 at 16:45; Stop 04/20/17 at 16:44 Morphine Sulfate 2 mg PRN Q2HR PRN IV PAIN Last administered on 04/16/17 07: 48; Start 04/15/17 at 18:45 Acetaminophen/ Hydrocodone Bitart (Lortab 10/325) 1 tab PRN Q3HRS PRN PO SEVERE PAIN; Start 04/15/17 at 18:45 Morphine Sulfate 5 mg/Ketorolac Tromethamine 30 mg/Ropivacaine 60 ml/ Epinephrine HCl 0.5 mg/Sodium Chloride 100 ml @ 100 mls/hr 1X PERIOP ONCE INT ART Last administered on 04/16/17t 08:43; Start 04/16/17 at 06:00; Stop 05/21 at 07:08; Status DC Rocuronium Corona (Zemuron) 50 mg STK-MED ONCE .ROUTE ; Start 04/16/17 at 07: 24; Stop 04/16/17 at 07:25; Status DC Fentanyl Citrate (Fentanyl 5ml Vial) 250 mcg STK-MED ONCE .ROUTE ; Start at 07:24; Stop 04/16/17 at 07:25; Status DC Propofol 20 ml @ As Directed STK-MED ONCE IV ; Start 04/16/17 at 07:24; Stop 04/16/17 at 07:25; Status DC Dexamethasone Sodium Phosphate (Decadron) 20 mg STK-MED ONCE .ROUTE ; Start 05/21 at 07:24; Stop 04/16/17 at 07:25; Status DC Lidocaine HCl (Lidocaine Pf 2% Vial) 5 ml STK-MED ONCE .ROUTE ; Start 04/16/17 at 07:24; Stop 04/16/17 at 07:25; Status DC Ondansetron HCl (Zofran) 4 mg STK-MED ONCE .ROUTE ; Start 04/16/17 at 07:24; Stop 04/16/17 at 07:25; Status DC Clindamycin Phosphate 50 ml @ 100 mls/hr 1X PREOP PRN IV PRIOR TO PROCEDURE; Start 04/16/17 at 08:30; Stop 04/16/17 at 12:00; Status DC Glycopyrrolate (Robinul) 1 mg STK-MED ONCE .ROUTE ; Start 04/16/17 at 08:30; Stop 04/16/17 at 08:31; Status DC Hydrocortisone Sodium Succinate (Solu-CORTEF) 100 mg STK-MED ONCE .ROUTE ; Start 04/16/17 at 08:32; Stop 04/16/17 at 08:33; Status DC Ephedrine Sulfate (Akovaz) 50 mg STK-MED ONCE .ROUTE ; Start 04/16/17 at 08:39 ; Stop 04/16/17 at 08:40; Status DC Ondansetron HCl (Zofran) 4 mg PRN Q6HRS PRN IV NAUSEA/VOMITING; Start at 10:00; Stop 04/16/17 at 18:00 Fentanyl Citrate (Fentanyl 2ml Vial) 25 mcg PRN Q5MIN PRN IV MILD PAIN; Start 04/16/17 at 10:00; Stop 04/16/17 at 18:00 Fentanyl Citrate (Fentanyl 2ml Vial) 50 mcg PRN Q5MIN PRN IV MODERATE PAIN; Start 04/16/17 at 10:00; Stop 04/16/17 at 18:00 Morphine Sulfate 1 mg PRN Q10MIN PRN IV SEVERE PAIN; Start 04/16/17 at 10:00; Stop 04/16/17 at 18:00 Ringer's Solution 1,000 ml @ 30 mls/hr Q24H IV ; Start 04/16/17 at 10:00; Stop 04/16/17 at 18:00 Lidocaine HCl (Xylocaine-Mpf 1% Vial) 2 ml PRN 1X PRN ID PRIOR TO IV START; Start 04/16/17 at 10:00; Stop 04/16/17 at 18:00 Hydromorphone HCl (Dilaudid) 0.5 mg PRN Q10MIN PRN IV SEV PAIN, Second choice; Start 04/16/17 at 10:00; Stop 04/16/17 at 18:00 Prochlorperazine Edisylate (Compazine) 5 mg PACU PRN PRN IV NAUSEA, MRX1; Start 04/16/17 at 10:00; Stop 04/16/17 at 18:00 Phenylephrine HCl 1 mg STK-MED ONCE IV ; Start 04/16/17 at 10:14; Stop at 10:15; Status DC Sevoflurane (Ultane) 90 ml STK-MED ONCE IH ; Start 04/16/17 at 10:14; Stop 05/21 at 10:15; Status DC Phenylephrine HCl 1 mg STK-MED ONCE IV ; Start 04/16/17 at 11:24; Stop at 11:25; Status DC Clindamycin Phosphate 50 ml @ 100 mls/hr 1X PREOP PRN IV PRIOR TO PROCEDURE; Start 04/16/17 at 12:30; Stop 04/16/17 at 12:33; Status DC Clindamycin Phosphate 50 ml @ 100 mls/hr Q8HRS IV Last administered on t 15:30; Start 04/16/17 at 14:00; Stop 04/17/17 at 13:59 Clindamycin Phosphate 50 ml @ 100 mls/hr 1X PREOP PRN IV PRIOR TO PROCEDURE Last administered on 04/16/17 08:33; Start 04/16/17 at 08:30; Stop 04/16/17 at 12:37; Status DC Sodium Chloride 1,000 ml @ 125 mls/hr 1X ONCE IV Last administered on 08:10; Start 04/16/17 at 08:00; Stop 04/16/17 at 15:59; Status DC Active Scripts Active Hydrocodone-Apap 7.5-325 (Hydrocodone Bit/Acetaminophen) 1 Each Tablet 1 Tab PO PRN Q6HRS PRN Amlodipine Besylate 10 Mg Tablet 10 Mg PO DAILY Reported Mestinon (Pyridostigmine Corona) 60 Mg Tablet 60 Mg PO QID Cymbalta (Duloxetine Hcl) 60 Mg Capsule.dr 2 Cap PO DAILY Gabapentin 300 Mg Capsule 300 Mg PO TID Xanax (Alprazolam) 0.5 Mg Tablet 1 Mg PO PRN TID PRN Vitamin D-3 (Cholecalciferol (Vitamin D3)) 2,000 Unit Tablet 1,000 Unit PO DAILY06 Atorvastatin Calcium 10 Mg Tablet 10 Mg PO DAILY Losartan Potassium 100 Mg Tablet 100 Mg PO DAILY Bupropion Xl (Bupropion Hcl) 300 Mg Tab.er.24h 300 Mg PO DAILY Vitals/I & O Vital Sign - Last 24 Hours 04/15/17 04/15/17 04/15/17 04/15/17 19:44 19:47 20:00 21:28 Temp 97.6 97.6 Pulse 75 Resp 18 B/P (MAP) 133/52 (79) Pulse Ox 97 O2 Delivery Room Air Room Air Room Air Room Air 04/15/17 04/15/17 04/15/17 04/16/17 22:54 23:10 23:11 03:20 Temp 97.7 97.4 97.7 97.4 Pulse 66 61 Resp 20 18 B/P (MAP) 144/47 (79) 116/54 (74) Pulse Ox 97 98 95 O2 Delivery Room Air BiPAP/CPAP BiPAP/CPAP O2 Flow Rate 2.0 04/16/17 04/16/17 04/16/17 04/16/17 03:55 06:31 06:32 07:06 Temp 97.9 97.9 Pulse 66 Resp 17 B/P (MAP) 112/54 (73) Pulse Ox 95 O2 Delivery Room Air Room Air BiPAP/CPAP Room Air 04/16/17 04/16/17 04/16/17 04/16/17 07:48 08:00 11:49 11:49 Temp 100.3 100.3 Pulse 133 Resp 20 22 B/P (MAP) 133/60 Pulse Ox 95 95 O2 Delivery BiPAP/CPAP Room Air Mask Simple Mask O2 Flow Rate 2.0 2.0 10 10 04/16/17 04/16/17 04/16/17 04/16/17 12:05 12:20 12:35 12:50 Temp 98.0 98.0 98.0 98.0 Pulse 99 84 77 78 Resp 20 20 20 20 B/P (MAP) 123/52 110/52 111/49 131/50 Pulse Ox 95 95 92 92 O2 Delivery Simple Mask Simple Mask Nasal Cannula Nasal Cannula O2 Flow Rate 10 10 2 3 04/16/17 13:05 Temp 98.0 98.0 Pulse 78 Resp 20 B/P (MAP) 113/60 Pulse Ox 92 O2 Flow Rate 3 Intake and Output 04/16/17 04/16/17 04/17/17 15:00 23:00 07:00 Intake Total 1950 ml Output Total 575 ml Balance 1375 ml NAIN PAZ MD Apr 16, 2017 16:45
--- NOTE | 2017-04-16 17:52 | CONS ---
DATE OF CONSULTATION: 04/16/2017 REFERRING PROVIDER: Becca Gr MD. CONSULTING PROVIDER: Vineet Go MD. REASON FOR CONSULTATION: Left hip dislocation. CHIEF COMPLAINT: Left hip pain. HISTORY OF PRESENT ILLNESS: The patient is a 66-year-old female well known to the [facility]opedic [facility] who has undergone multiple left hip surgeries, the most recent in February of this year with my colleague. She underwent a revision to a constrained liner and had been doing well until she had a fall yesterday while getting on to the shower. She was unable to move her leg or bear weight on her left lower extremity. X-rays were obtained and revealed that she dislocated her constrained liner. She tells me her hip hurts, but it is tolerable with the pain meds. She denies any pain radiating down her leg. Hip pain is worse with any movement of her leg or attempted weightbearing. No other complaints or concerns this morning. ALLERGIES: PENICILLIN, SULFA AND CIPRO. MEDICATIONS: Reviewed, please see MRAD. PAST MEDICAL HISTORY: Coronary artery disease, asthma, myasthenia gravis, peripheral neuropathy, diabetes. PAST SURGICAL HISTORY: Left hip replacements, hysterectomy, appendectomy. FAMILY HISTORY: Hypertension. SOCIAL HISTORY: No alcohol or tobacco. Normally, she is able to ambulate well. REVIEW OF SYSTEMS: Twelve point review of systems is negative except as per HPI. PHYSICAL EXAMINATION: VITAL SIGNS: Reviewed. GENERAL: She is awake and alert in bed. Speech is clear. CPAP is in place. HEENT: Head normocephalic, atraumatic. Extraocular muscles are intact. CARDIOVASCULAR: Regular rate and rhythm. LUNGS: Respirations are unlabored. ABDOMEN: Soft and nondistended. Obese. EXTREMITIES: Reveals left lower extremity is shortened and internally rotated. She can wiggle her toes. Dorsalis pedis 2+. She has decreased range of motion in her hip and pain with any attempted range of motion at her hip. IMAGING: X-rays are interpreted by myself. Report was also reviewed. She has a left total hip arthroplasty with a constrained liner and a posterior dislocation. IMPRESSION: Left total hip arthroplasty dislocation. PLAN: I did discuss her case with my colleague who may call us to arrange for components to be delivered and plan on surgery as soon as those are available. I did discuss this with the patient and answered her questions as well. VINEET GO MD DR: ОЛЬГА/keyanna JOB#: [id number] / [id number] MALLORY
[2017-04-16 19:00] VITALS: BP 119/34
--- NOTE | 2017-04-16 20:23 | CONS ---
DATE OF CONSULTATION: 04/16/2017 REQUESTING PHYSICIAN: Dr. Becca Gr. REASON FOR CONSULTATION: Left hip dislocation post fall. HISTORY OF PRESENT ILLNESS: The patient is a 66-year-old female well known to me from previous hip dislocations, most recent from a fall in the shower during her hospital admission. She had been admitted earlier with generalized weakness and history of myasthenia gravis. She had had worsening symptoms over the past 2-3 days prior to admission and had required some plasmapheresis for myasthenia gravis treatment a couple of weeks ago. She had been unable to ambulate prior to admission under her own power due to weakness even prior to the fall and with the fall, has severe pain, inability to bear weight on the left leg. PAST MEDICAL HISTORY: Significant for myasthenia gravis, sleep apnea, celiac disease, depression, hypercholesterolemia, hypertension, obesity, history of kidney stones. 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 ALLERGIES: INCLUDE PENICILLIN, SULFA AND CIPROFLOXACIN. MEDICATIONS: List is reviewed. FAMILY HISTORY: Noncontributory. SOCIAL HISTORY: She denies any smoking, alcohol or drug use. She is having significant family difficulties; however in that her is currently in jail due to a wound problem with his ankle due to a fracture dislocation and subsequent ankle fusion. Apparently, has other family issues going on as well and increase in her anxiety as a result. REVIEW OF SYSTEMS: Significant for severe pain in the left hip with any motion, difficulty bearing weight. She denies aside from general weakness, any specific focal weakness, numbness, tingling in the extremities, radiating pain. She denies any loss of consciousness, head trauma, neck or back pain as well. PHYSICAL EXAMINATION: A pleasant, cooperative 66-year-old female, mild distress even resting secondary to her hip pain, obvious deformity with shortening, rotation of the left hip. Well-healed incision from previous total hip arthroplasty. No redness or erythema present. She has normal motion of the contralateral hip on the right and normal knee and ankle motion and stability bilaterally. IMAGING: X-rays show a dislocated constrained total hip arthroplasty with otherwise well fixated femoral and acetabular components. The acetabular locking ring appears to be actually intact and not displaced. No evidence of fracture is noted. IMPRESSION: Left constrained total hip arthroplasty dislocation status post fall. TREATMENT PLAN: I went over with her the treatment alternatives, I am puzzled by the fact that the hip is out without the locking ring coming off and intend to explore this, but potentially may even revise the acetabulum to convert to another type of constrained fixation of her hip, particularly given her difficult course and her recent history of weakness and falls. All her questions were answered. We are going to proceed with operative evaluation and treatment today. JAYLEEN SONG MD DR: TANNER/keyanna JOB#: [id number] / [id number]
[2017-04-16] MEDS: KETOROLAC 30 MG/ML INJ. IV PRN (20:42)
[2017-04-16] MEDS: ATORVASTATIN CALCIUM 10 MG TABLET. PO SCH (20:42)
[2017-04-16] MEDS: ALPRAZolam 1 MG TABLET PO PRN (20:47)
[2017-04-16 23:00] VITALS: BP 113/44
[2017-04-17] MEDS: MORPHINE SULFATE 4 MG/ML DISP.SYRIN. IV PRN ×4 (01:40→13:13)
[2017-04-17 03:00] VITALS: BP 144/53
[2017-04-17 05:03] LABS: BASO # 0.1 x10^3/uL (0.0-0.2); BASO % 1 % (0-3); EOS % 1 % (0-3); HEMATOCRIT 31.1 % (36.0-47.0); HEMOGLOBIN 9.7 g/dL (12.0-15.5); LYMPH # 2.3 x10^3/uL (1.0-4.8); LYMPH % 20 % (24-48); MEAN CORPUSCULAR HEMOGLOBIN 26 pg (25-35); MEAN CORPUSCULAR HGB CONC 31 g/dL (31-37); MEAN CORPUSCULAR VOLUME 82 fL (79-100); MONO % 7 % (0-9); NEUT % 71 % (31-73); PLATELET COUNT 342 x10^3/uL (140-400); RED BLOOD COUNT 3.78 x10^6/uL (3.50-5.40); RED CELL DISTRIBUTION WIDTH 18.8 % (11.5-14.5); WHITE BLOOD COUNT 11.9 x10^3/uL (4.0-11.0)
[2017-04-17] MEDS: CLINDAMYCIN 600MG PREMIX 50 ML IV SCH (05:08)
[2017-04-17 05:51] LABS: CREATININE 0.7 mg/dL (0.6-1.0); GFR 83.5; POTASSIUM 4.2 mmol/L (3.5-5.1)
[2017-04-17 07:00] VITALS: BP 124/60
--- NOTE | 2017-04-17 08:46 | PDOC ---
PULMONARY PROGRESS NOTES Subjective PT WITH NO INCREASE SOA Vitals Vital Signs Date Time Temp Pulse Resp B/P (MAP) Pulse Ox O2 Delivery O2 Flow Rate FiO2 04/17/17 07:00 97.7 73 18 124/60 (81) 92 Nasal Cannula 2.0 97.7 ROS: No Nausea, No Chest Pain, No Abdominal Pain, No Increase Cough General: Alert, No acute distress Lungs: Clear Cardiovascular: S1, S2 Abdomen: Soft Neuro Exam: Alert Extremities: No Edema Skin: Warm Labs Laboratory Tests Test 04/16/17 03:20 04/17/17 04:32 White Blood Count 11.9 x10^3/uL (4.0-11.0) 11.9 x10^3/uL (4.0-11.0) Red Blood Count 4.49 x10^6/uL (3.50-5.40) 3.78 x10^6/uL (3.50-5.40) Hemoglobin 11.5 g/dL (12.0-15.5) 9.7 g/dL (12.0-15.5) Hematocrit 36.6 % (36.0-47.0) 31.1 % (36.0-47.0) Mean Corpuscular Volume 81 fL (79-100) 82 fL (79-100) Mean Corpuscular Hemoglobin 26 pg (25-35) 26 pg (25-35) Mean Corpuscular Hemoglobin Concent 31 g/dL (31-37) 31 g/dL (31-37) Red Cell Distribution Width 18.8 % (11.5-14.5) 18.8 % (11.5-14.5) Platelet Count 386 x10^3/uL (140-400) 342 x10^3/uL (140-400) Neutrophils (%) (Auto) 62 % (31-73) 71 % (31-73) Lymphocytes (%) (Auto) 28 % (24-48) 20 % (24-48) Monocytes (%) (Auto) 8 % (0-9) 7 % (0-9) Eosinophils (%) (Auto) 2 % (0-3) 1 % (0-3) Basophils (%) (Auto) 1 % (0-3) 1 % (0-3) Neutrophils # (Auto) 7.3 x10^3uL (1.8-7.7) 8.5 x10^3uL (1.8-7.7) Lymphocytes # (Auto) 3.4 x10^3/uL (1.0-4.8) 2.3 x10^3/uL (1.0-4.8) Monocytes # (Auto) 0.9 x10^3/uL (0.0-1.1) 0.9 x10^3/uL (0.0-1.1) Eosinophils # (Auto) 0.2 x10^3/uL (0.0-0.7) 0.1 x10^3/uL (0.0-0.7) Basophils # (Auto) 0.1 x10^3/uL (0.0-0.2) 0.1 x10^3/uL (0.0-0.2) Sodium Level 142 mmol/L (136-145) 142 mmol/L (136-145) Potassium Level 3.7 mmol/L (3.5-5.1) 4.2 mmol/L (3.5-5.1) Chloride Level 106 mmol/L (98-107) 105 mmol/L (98-107) Carbon Dioxide Level 30 mmol/L (21-32) 32 mmol/L (21-32) Anion Gap 6 (6-14) 5 (6-14) Blood Urea Nitrogen 19 mg/dL (7-20) 22 mg/dL (7-20) Creatinine 0.6 mg/dL (0.6-1.0) 0.7 mg/dL (0.6-1.0) Estimated GFR (Cockcroft-Gault) 99.7 83.5 Glucose Level 72 mg/dL (70-99) 86 mg/dL (70-99) Calcium Level 9.7 mg/dL (8.5-10.1) 9.0 mg/dL (8.5-10.1) Laboratory Tests Test 04/17/17 04:32 White Blood Count 11.9 x10^3/uL (4.0-11.0) Red Blood Count 3.78 x10^6/uL (3.50-5.40) Hemoglobin 9.7 g/dL (12.0-15.5) Hematocrit 31.1 % (36.0-47.0) Mean Corpuscular Volume 82 fL (79-100) Mean Corpuscular Hemoglobin 26 pg (25-35) Mean Corpuscular Hemoglobin Concent 31 g/dL (31-37) Red Cell Distribution Width 18.8 % (11.5-14.5) Platelet Count 342 x10^3/uL (140-400) Neutrophils (%) (Auto) 71 % (31-73) Lymphocytes (%) (Auto) 20 % (24-48) Monocytes (%) (Auto) 7 % (0-9) Eosinophils (%) (Auto) 1 % (0-3) Basophils (%) (Auto) 1 % (0-3) Neutrophils # (Auto) 8.5 x10^3uL (1.8-7.7) Lymphocytes # (Auto) 2.3 x10^3/uL (1.0-4.8) Monocytes # (Auto) 0.9 x10^3/uL (0.0-1.1) Eosinophils # (Auto) 0.1 x10^3/uL (0.0-0.7) Basophils # (Auto) 0.1 x10^3/uL (0.0-0.2) Sodium Level 142 mmol/L (136-145) Potassium Level 4.2 mmol/L (3.5-5.1) Chloride Level 105 mmol/L (98-107) Carbon Dioxide Level 32 mmol/L (21-32) Anion Gap 5 (6-14) Blood Urea Nitrogen 22 mg/dL (7-20) Creatinine 0.7 mg/dL (0.6-1.0) Estimated GFR (Cockcroft-Gault) 83.5 Glucose Level 86 mg/dL (70-99) Calcium Level 9.0 mg/dL (8.5-10.1) Medications Active Scripts Medications Dose Route/Sig Max Daily Dose Days Date Category Hydrocodone-Apap 7.5-325 (Hydrocodone Bit/Acetaminophen) 1 Each Tablet 1 Tab PO PRN Q6HRS PRN 03/07/17 Rx Mestinon (Pyridostigmine [place]) 60 Mg Tablet 60 Mg PO QID 02/28/17 Reported Amlodipine Besylate 10 Mg Tablet 10 Mg PO DAILY 05/23/16 Rx Cymbalta (Duloxetine Hcl) 60 Mg Capsule.dr 2 Cap PO DAILY 02/19/16 Reported Gabapentin 300 Mg Capsule 300 Mg PO TID 02/04/16 Reported Xanax (Alprazolam) 0.5 Mg Tablet 1 Mg PO PRN TID PRN 10/04/13 Reported Vitamin D-3 (Cholecalciferol (Vitamin D3)) 2,000 Unit Tablet 1,000 Unit PO DAILY06 08/21/13 Reported Atorvastatin Calcium 10 Mg Tablet 10 Mg PO DAILY 07/31/13 Reported Losartan Potassium 100 Mg Tablet 100 Mg PO DAILY 07/31/13 Reported Bupropion Xl (Bupropion Hcl) 300 Mg Tab.er.24h 300 Mg PO DAILY 07/31/13 Reported Impression . 1. Acute respiratory distress secondary to exacerbation of myasthenia gravis. 2. Exacerbation of myasthenia gravis. 3. Peripheral neuropathy. 4. Anxiety/depression. 5. Obstructive sleep apnea.On home CPAP 6. CXR with elevated right soco-diaphragm Plan . 1. monitoring negative inspiratory force on a PRN basis. 2. plasmapheresis. 3. Respiratory status is compensated at this time. 4. Continue oxygen supplementation. 5. No need for antibiotics. 6. Mestinon per Neuro 7. CPAP qhs DIANNA HOLLIS MD Apr 17, 2017 08:46
[2017-04-17] MEDS: buPROPion XL 150 MG TAB.ER.24H. PO SCH (09:33)
[2017-04-17] MEDS: PYRIDOSTIGMINE BROMIDE 60 MG TABLET PO SCH ×4 (09:33→22:21)
[2017-04-17] MEDS: FAMOTIDINE 20 MG TABLET. PO SCH (09:33)
[2017-04-17] MEDS: GABAPENTIN 300 MG CAPSULE. PO SCH ×3 (09:33→22:21)
[2017-04-17] MEDS: CALCIUM CARBONATE 500 MG TABLET PO SCH ×3 (09:34→17:02)
[2017-04-17] MEDS: DULoxetine HCL 30 MG CAPSULE.DR PO SCH (09:34)
[2017-04-17] MEDS: LOSARTAN POTASSIUM 50 MG TABLET. PO SCH (09:34)
[2017-04-17] MEDS: predniSONE 20 MG TABLET PO SCH (09:35)
[2017-04-17] MEDS: amLODIPine BESYLATE 10 MG TABLET PO SCH (09:35)
[2017-04-17] MEDS: CHOLECALCIFEROL (VITAMIN D3) 1,000 UNIT TABLET PO SCH (09:35)
[2017-04-17 11:00] VITALS: BP 95/62
[2017-04-17] MEDS: HYDROcodone/APAP 10/325 1 TAB TABLET PO PRN ×2 (13:13→17:04)
--- NOTE | 2017-04-17 14:29 | PDOC ---
PROGRESS NOTES Chief Complaint Chief Complaint 1. Gen weakness, myasthenia flare -s/p plasmapharesis (3 sessions) 2, OBEsity, HTN, etc - chronic stable 3. Normal Grief 4. Left hip dislocation s/p sx 04/16 5. FAll 04/15/17 plan: fu with neuro, ortho cont PTOT pt wants go home, but PTOT still recommend snf talked to SW cont meds for MG History of Present Illness History of Present Illness Was about to dc home monday after completion of 3 plama exchanges, but fell that day NOw hip dislocated - hx of prosthetic hip same side ROS: no fever, chills, sob or chest pain feels ok post op 04/16 Vitals Vitals Vital Signs Date Time Temp Pulse Resp B/P (MAP) Pulse Ox O2 Delivery O2 Flow Rate FiO2 04/17/17 14:19 90 Nasal Cannula 2.0 04/17/17 11:00 97.9 60 18 95/62 (73) 97.9 Physical Exam General: Alert, Oriented X3, Cooperative, No acute distress, Other (down spirit ) Heart: Regular rate, Normal S1, Normal S2 Lungs: Clear Abdomen: Normal bowel sounds, Soft, No tenderness, No hepatosplenomegaly, No masses Extremities: No clubbing, No cyanosis, No edema, Normal pulses, No tenderness/ swelling Skin: No rashes, No breakdown, No significant lesion Labs LABS Laboratory Tests Test 04/17/17 04:32 White Blood Count 11.9 x10^3/uL (4.0-11.0) Red Blood Count 3.78 x10^6/uL (3.50-5.40) Hemoglobin 9.7 g/dL (12.0-15.5) Hematocrit 31.1 % (36.0-47.0) Mean Corpuscular Volume 82 fL (79-100) Mean Corpuscular Hemoglobin 26 pg (25-35) Mean Corpuscular Hemoglobin Concent 31 g/dL (31-37) Red Cell Distribution Width 18.8 % (11.5-14.5) Platelet Count 342 x10^3/uL (140-400) Neutrophils (%) (Auto) 71 % (31-73) Lymphocytes (%) (Auto) 20 % (24-48) Monocytes (%) (Auto) 7 % (0-9) Eosinophils (%) (Auto) 1 % (0-3) Basophils (%) (Auto) 1 % (0-3) Neutrophils # (Auto) 8.5 x10^3uL (1.8-7.7) Lymphocytes # (Auto) 2.3 x10^3/uL (1.0-4.8) Monocytes # (Auto) 0.9 x10^3/uL (0.0-1.1) Eosinophils # (Auto) 0.1 x10^3/uL (0.0-0.7) Basophils # (Auto) 0.1 x10^3/uL (0.0-0.2) Sodium Level 142 mmol/L (136-145) Potassium Level 4.2 mmol/L (3.5-5.1) Chloride Level 105 mmol/L (98-107) Carbon Dioxide Level 32 mmol/L (21-32) Anion Gap 5 (6-14) Blood Urea Nitrogen 22 mg/dL (7-20) Creatinine 0.7 mg/dL (0.6-1.0) Estimated GFR (Cockcroft-Gault) 83.5 Glucose Level 86 mg/dL (70-99) Calcium Level 9.0 mg/dL (8.5-10.1) Assessment and Plan Assessmemt and Plan Problems Medical Problems: (1) Respiratory depression Status: Acute Problems: Comment Review of Relevant I have reviewed the following items antonio (where applicable) has been applied. Labs Laboratory Tests Test 04/16/17 03:20 04/17/17 04:32 White Blood Count 11.9 x10^3/uL (4.0-11.0) 11.9 x10^3/uL (4.0-11.0) Red Blood Count 4.49 x10^6/uL (3.50-5.40) 3.78 x10^6/uL (3.50-5.40) Hemoglobin 11.5 g/dL (12.0-15.5) 9.7 g/dL (12.0-15.5) Hematocrit 36.6 % (36.0-47.0) 31.1 % (36.0-47.0) Mean Corpuscular Volume 81 fL (79-100) 82 fL (79-100) Mean Corpuscular Hemoglobin 26 pg (25-35) 26 pg (25-35) Mean Corpuscular Hemoglobin Concent 31 g/dL (31-37) 31 g/dL (31-37) Red Cell Distribution Width 18.8 % (11.5-14.5) 18.8 % (11.5-14.5) Platelet Count 386 x10^3/uL (140-400) 342 x10^3/uL (140-400) Neutrophils (%) (Auto) 62 % (31-73) 71 % (31-73) Lymphocytes (%) (Auto) 28 % (24-48) 20 % (24-48) Monocytes (%) (Auto) 8 % (0-9) 7 % (0-9) Eosinophils (%) (Auto) 2 % (0-3) 1 % (0-3) Basophils (%) (Auto) 1 % (0-3) 1 % (0-3) Neutrophils # (Auto) 7.3 x10^3uL (1.8-7.7) 8.5 x10^3uL (1.8-7.7) Lymphocytes # (Auto) 3.4 x10^3/uL (1.0-4.8) 2.3 x10^3/uL (1.0-4.8) Monocytes # (Auto) 0.9 x10^3/uL (0.0-1.1) 0.9 x10^3/uL (0.0-1.1) Eosinophils # (Auto) 0.2 x10^3/uL (0.0-0.7) 0.1 x10^3/uL (0.0-0.7) Basophils # (Auto) 0.1 x10^3/uL (0.0-0.2) 0.1 x10^3/uL (0.0-0.2) Sodium Level 142 mmol/L (136-145) 142 mmol/L (136-145) Potassium Level 3.7 mmol/L (3.5-5.1) 4.2 mmol/L (3.5-5.1) Chloride Level 106 mmol/L (98-107) 105 mmol/L (98-107) Carbon Dioxide Level 30 mmol/L (21-32) 32 mmol/L (21-32) Anion Gap 6 (6-14) 5 (6-14) Blood Urea Nitrogen 19 mg/dL (7-20) 22 mg/dL (7-20) Creatinine 0.6 mg/dL (0.6-1.0) 0.7 mg/dL (0.6-1.0) Estimated GFR (Cockcroft-Gault) 99.7 83.5 Glucose Level 72 mg/dL (70-99) 86 mg/dL (70-99) Calcium Level 9.7 mg/dL (8.5-10.1) 9.0 mg/dL (8.5-10.1) Laboratory Tests Test 04/17/17 04:32 White Blood Count 11.9 x10^3/uL (4.0-11.0) Red Blood Count 3.78 x10^6/uL (3.50-5.40) Hemoglobin 9.7 g/dL (12.0-15.5) Hematocrit 31.1 % (36.0-47.0) Mean Corpuscular Volume 82 fL (79-100) Mean Corpuscular Hemoglobin 26 pg (25-35) Mean Corpuscular Hemoglobin Concent 31 g/dL (31-37) Red Cell Distribution Width 18.8 % (11.5-14.5) Platelet Count 342 x10^3/uL (140-400) Neutrophils (%) (Auto) 71 % (31-73) Lymphocytes (%) (Auto) 20 % (24-48) Monocytes (%) (Auto) 7 % (0-9) Eosinophils (%) (Auto) 1 % (0-3) Basophils (%) (Auto) 1 % (0-3) Neutrophils # (Auto) 8.5 x10^3uL (1.8-7.7) Lymphocytes # (Auto) 2.3 x10^3/uL (1.0-4.8) Monocytes # (Auto) 0.9 x10^3/uL (0.0-1.1) Eosinophils # (Auto) 0.1 x10^3/uL (0.0-0.7) Basophils # (Auto) 0.1 x10^3/uL (0.0-0.2) Sodium Level 142 mmol/L (136-145) Potassium Level 4.2 mmol/L (3.5-5.1) Chloride Level 105 mmol/L (98-107) Carbon Dioxide Level 32 mmol/L (21-32) Anion Gap 5 (6-14) Blood Urea Nitrogen 22 mg/dL (7-20) Creatinine 0.7 mg/dL (0.6-1.0) Estimated GFR (Cockcroft-Gault) 83.5 Glucose Level 86 mg/dL (70-99) Calcium Level 9.0 mg/dL (8.5-10.1) Medications Current Medications Pyridostigmine [place] (Mestinon) 60 mg 1X STAT PO Last administered on 15:37; Start 04/11/17 at 15:08; Stop 04/11/17 at 15:09; Status DC Sodium Chloride 1,000 ml @ 100 mls/hr Q10H IV Last administered on 04/11/17 15:37; Start 04/11/17 at 15:07; Stop 04/12/17 at 01:06; Status DC Magnesium Sulfate/ Dextrose 50 ml @ 25 mls/hr 1X ONCE IV Last administered on 04/11/17 16:36; Start 04/11/17 at 16:30; Stop 04/11/17 at 18:29; Status DC Alprazolam (Xanax) 1 mg PRN TID PRN PO ANXIETY Last administered on 04/16/17 20:47; Start 04/11/17 at 16:00 Amlodipine Besylate (Norvasc) 10 mg DAILY PO Last administered on 04/17/17 09 :35; Start 04/12/17 at 09:00 Atorvastatin Calcium (Lipitor) 10 mg QHS PO Last administered on 04/16/17 20: 42; Start 04/11/17 at 21:00 Acetaminophen/ Hydrocodone Bitart (Lortab 7.5/325) 1 tab PRN Q6HRS PRN PO MILD - MODERATE PAIN Last administered on 04/15/17 15:13; Start 04/11/17 at 16:00 Pyridostigmine [place] (Mestinon) 60 mg QID PO Last administered on 04/17/17 12:44; Start 04/11/17 at 17:00 Bupropion HCl (Wellbutrin Xl) 300 mg DAILY PO Last administered on 04/17/17 09:33; Start 04/12/17 at 09:00 Vitamin D (Vitamin D3) 1,000 unit DAILY PO Last administered on 04/17/17 09: 35; Start 04/12/17 at 09:00 Duloxetine HCl (Cymbalta) 120 mg DAILY PO Last administered on 04/17/17 09:34 ; Start 04/12/17 at 09:00 Gabapentin (Neurontin) 300 mg TID PO Last administered on 04/17/17 13:31; Start 04/11/17 at 21:00 Losartan Potassium (Cozaar) 100 mg DAILY PO Last administered on 04/17/17 09: 34; Start 04/12/17 at 09:00 Diphenhydramine HCl (Benadryl) 25 mg PRN QHS PRN PO INSOMNIA Last administered on 04/14/17 15:30; Start 04/11/17 at 16:15 Prednisone (Prednisone) 20 mg DAILY PO Last administered on 04/17/17 09:35; Start 04/11/17 at 17:15 Calcium Carbonate/ Glycine (Oscal) 500 mg TIDAFTMEAL PO Last administered on 12:44; Start 04/11/17 at 18:00 Famotidine (Pepcid) 20 mg DAILY PO Last administered on 04/17/17 09:33; Start 04/12/17 at 09:00 Ergocalciferol (Vitamin D2) 50,000 unit QMTH PO ; Start 04/13/17 at 16:00 Heparin Sodium (Porcine) (Hep Lock Adult) 500 unit 1X ONCE IV Last administered on 04/11/17 17:28; Start 04/11/17 at 17:30; Stop 04/11/17 at 17:31 ; Status DC Heparin Sodium (Porcine) (Heparin Sodium) 2,000 unit 1X ONCE IV Last administered on 04/12/17 09:42; Start 04/12/17 at 08:45; Stop 04/12/17 at 08:46 ; Status DC Diphenhydramine HCl (Benadryl) 25 mg 1X PRN PRN IV ITCHING; Start 04/12/17 at 08:45; Stop 04/13/17 at 08:44; Status DC Diphenhydramine HCl (Benadryl) 25 mg 1X PRN PRN IV ITCHING; Start 04/12/17 at 08:45; Stop 04/13/17 at 08:44; Status DC Albumin Human 2,000 ml @ 0 mls/hr 1X ONCE IV ; Start 04/12/17 at 09:00; Stop 04/12/17 at 09:01; Status DC Albumin Human 1,500 ml @ 0 mls/hr 1X ONCE IV ; Start 04/13/17 at 09:00; Stop 04/13/17 at 09:02; Status DC Heparin Sodium (Porcine) (Heparin Sodium) 2,000 unit 1X ONCE IV ; Start at 09:00; Stop 04/13/17 at 09:02; Status DC Potassium Chloride (Klor-Con) 40 meq TID PO Last administered on 04/14/17 09: 41; Start 04/13/17 at 14:00; Stop 04/14/17 at 09:01; Status DC Albumin Human 1,500 ml @ 0 mls/hr 1X ONCE IV Last administered on 04/13/17 17:53; Start 04/13/17 at 15:30; Stop 04/13/17 at 15:31; Status DC Heparin Sodium (Porcine) (Heparin Sodium) 2,000 unit 1X ONCE IV Last administered on 04/13/17 17:51; Start 04/13/17 at 15:30; Stop 04/13/17 at 15:31 ; Status DC Albumin Human 2,000 ml @ 125 mls/hr 1X ONCE IV Last administered on 12:53; Start 04/14/17 at 11:15; Stop 04/15/17 at 03:14; Status DC Ketorolac Tromethamine (Toradol) 30 mg PRN Q6HRS PRN IV PAIN Last administered on 04/16/17 20:42; Start 04/15/17 at 16:45; Stop 04/20/17 at 16:44 Morphine Sulfate 2 mg PRN Q2HR PRN IV PAIN Last administered on 04/17/17 13: 13; Start 04/15/17 at 18:45 Acetaminophen/ Hydrocodone Bitart (Lortab 10/325) 1 tab PRN Q3HRS PRN PO SEVERE PAIN Last administered on 04/17/17 13:13; Start 04/15/17 at 18:45 Morphine Sulfate 5 mg/Ketorolac Tromethamine 30 mg/Ropivacaine 60 ml/ Epinephrine HCl 0.5 mg/Sodium Chloride 100 ml @ 100 mls/hr 1X PERIOP ONCE INT ART Last administered on 04/16/17t 08:43; Start 04/16/17 at 06:00; Stop 05/21 at 07:08; Status DC Rocuronium [place] (Zemuron) 50 mg STK-MED ONCE .ROUTE ; Start 04/16/17 at 07: 24; Stop 04/16/17 at 07:25; Status DC Fentanyl Citrate (Fentanyl 5ml Vial) 250 mcg STK-MED ONCE .ROUTE ; Start at 07:24; Stop 04/16/17 at 07:25; Status DC Propofol 20 ml @ As Directed STK-MED ONCE IV ; Start 04/16/17 at 07:24; Stop 04/16/17 at 07:25; Status DC Dexamethasone Sodium Phosphate (Decadron) 20 mg STK-MED ONCE .ROUTE ; Start 05/21 at 07:24; Stop 04/16/17 at 07:25; Status DC Lidocaine HCl (Lidocaine Pf 2% Vial) 5 ml STK-MED ONCE .ROUTE ; Start 04/16/17 at 07:24; Stop 04/16/17 at 07:25; Status DC Ondansetron HCl (Zofran) 4 mg STK-MED ONCE .ROUTE ; Start 04/16/17 at 07:24; Stop 04/16/17 at 07:25; Status DC Clindamycin Phosphate 50 ml @ 100 mls/hr 1X PREOP PRN IV PRIOR TO PROCEDURE; Start 04/16/17 at 08:30; Stop 04/16/17 at 12:00; Status DC Glycopyrrolate (Robinul) 1 mg STK-MED ONCE .ROUTE ; Start 04/16/17 at 08:30; Stop 04/16/17 at 08:31; Status DC Hydrocortisone Sodium Succinate (Solu-CORTEF) 100 mg STK-MED ONCE .ROUTE ; Start 04/16/17 at 08:32; Stop 04/16/17 at 08:33; Status DC Ephedrine Sulfate (Akovaz) 50 mg STK-MED ONCE .ROUTE ; Start 04/16/17 at 08:39 ; Stop 04/16/17 at 08:40; Status DC Ondansetron HCl (Zofran) 4 mg PRN Q6HRS PRN IV NAUSEA/VOMITING; Start at 10:00; Stop 04/16/17 at 18:00; Status DC Fentanyl Citrate (Fentanyl 2ml Vial) 25 mcg PRN Q5MIN PRN IV MILD PAIN; Start 04/16/17 at 10:00; Stop 04/16/17 at 18:00; Status DC Fentanyl Citrate (Fentanyl 2ml Vial) 50 mcg PRN Q5MIN PRN IV MODERATE PAIN; Start 04/16/17 at 10:00; Stop 04/16/17 at 18:00; Status DC Morphine Sulfate 1 mg PRN Q10MIN PRN IV SEVERE PAIN; Start 04/16/17 at 10:00; Stop 04/16/17 at 18:00; Status DC Ringer's Solution 1,000 ml @ 30 mls/hr Q24H IV ; Start 04/16/17 at 10:00; Stop 04/16/17 at 18:00; Status DC Lidocaine HCl (Xylocaine-Mpf 1% Vial) 2 ml PRN 1X PRN ID PRIOR TO IV START; Start 04/16/17 at 10:00; Stop 04/16/17 at 18:00; Status DC Hydromorphone HCl (Dilaudid) 0.5 mg PRN Q10MIN PRN IV SEV PAIN, Second choice; Start 04/16/17 at 10:00; Stop 04/16/17 at 18:00; Status DC Prochlorperazine Edisylate (Compazine) 5 mg PACU PRN PRN IV NAUSEA, MRX1; Start 04/16/17 at 10:00; Stop 04/16/17 at 18:00; Status DC Phenylephrine HCl 1 mg STK-MED ONCE IV ; Start 04/16/17 at 10:14; Stop at 10:15; Status DC Sevoflurane (Ultane) 90 ml STK-MED ONCE IH ; Start 04/16/17 at 10:14; Stop 05/21 at 10:15; Status DC Phenylephrine HCl 1 mg STK-MED ONCE IV ; Start 04/16/17 at 11:24; Stop at 11:25; Status DC Clindamycin Phosphate 50 ml @ 100 mls/hr 1X PREOP PRN IV PRIOR TO PROCEDURE; Start 04/16/17 at 12:30; Stop 04/16/17 at 12:33; Status DC Clindamycin Phosphate 50 ml @ 100 mls/hr Q8HRS IV Last administered on 05:08; Start 04/16/17 at 14:00; Stop 04/17/17 at 13:59; Status DC Clindamycin Phosphate 50 ml @ 100 mls/hr 1X PREOP PRN IV PRIOR TO PROCEDURE Last administered on 04/16/17 08:33; Start 04/16/17 at 08:30; Stop 04/16/17 at 12:37; Status DC Sodium Chloride 1,000 ml @ 125 mls/hr 1X ONCE IV Last administered on 08:10; Start 04/16/17 at 08:00; Stop 04/16/17 at 15:59; Status DC Active Scripts Active Hydrocodone-Apap 7.5-325 (Hydrocodone Bit/Acetaminophen) 1 Each Tablet 1 Tab PO PRN Q6HRS PRN Amlodipine Besylate 10 Mg Tablet 10 Mg PO DAILY Reported [place]on (Pyridostigmine [place]) 60 Mg Tablet 60 Mg PO QID Cymbalta (Duloxetine Hcl) 60 Mg Capsule.dr 2 Cap PO DAILY Gabapentin 300 Mg Capsule 300 Mg PO TID Xanax (Alprazolam) 0.5 Mg Tablet 1 Mg PO PRN TID PRN Vitamin D-3 (Cholecalciferol (Vitamin D3)) 2,000 Unit Tablet 1,000 Unit PO DAILY06 Atorvastatin Calcium 10 Mg Tablet 10 Mg PO DAILY Losartan Potassium 100 Mg Tablet 100 Mg PO DAILY Bupropion Xl (Bupropion Hcl) 300 Mg Tab.er.24h 300 Mg PO DAILY Vitals/I & O Vital Sign - Last 24 Hours 04/16/17 04/16/17 04/16/17 04/16/17 15:00 18:23 18:53 19:00 Temp 97.7 97.5 97.7 97.5 Pulse 71 74 Resp 18 20 20 18 B/P (MAP) 111/47 (68) 119/34 (62) Pulse Ox 91 97 O2 Delivery Nasal Cannula Room Air Nasal Cannula O2 Flow Rate 2.0 2.0 04/16/17 04/16/17 04/16/17 04/16/17 20:00 20:41 23:00 23:29 Temp 98.1 98.1 Pulse 78 Resp 18 B/P (MAP) 113/44 (67) Pulse Ox 94 O2 Delivery Nasal Cannula Room Air Nasal Cannula Room Air O2 Flow Rate 2.0 2.0 04/17/17 04/17/17 04/17/17 04/17/17 01:40 03:00 05:05 07:00 Temp 98.1 97.7 98.1 97.7 Pulse 77 73 Resp 18 18 B/P (MAP) 144/53 (83) 124/60 (81) Pulse Ox 99 92 O2 Delivery Nasal Cannula Nasal Cannula Nasal Cannula Nasal Cannula O2 Flow Rate 2.0 2.0 2.0 04/17/17 04/17/17 04/17/17 04/17/17 09:34 09:35 09:41 10:19 Pulse 73 73 B/P (MAP) 124/60 124/60 Pulse Ox 92 92 O2 Delivery Room Air O2 Flow Rate 2.0 04/17/17 04/17/17 04/17/17 04/17/17 11:00 13:13 13:13 13:46 Temp 97.9 97.9 Pulse 60 Resp 18 B/P (MAP) 95/62 (73) Pulse Ox 90 O2 Delivery Nasal Cannula Room Air Nasal Cannula Room Air O2 Flow Rate 2.0 2.0 04/17/17 14:19 Pulse Ox 90 O2 Delivery Nasal Cannula O2 Flow Rate 2.0 Intake and Output 04/16/17 04/16/17 04/17/17 15:00 23:00 07:00 Intake Total 1950 ml 220 ml 320 ml Output Total 575 ml 0 ml 150 ml Balance 1375 ml 220 ml 170 ml GIRISH BURT MD Apr 17, 2017 14:29
[2017-04-17 15:00] VITALS: BP 115/43
--- NOTE | 2017-04-17 15:22 | PDOC ---
PROGRESS NOTES Assessment Assessment MG. Slurred speech as her symptoms of MG. Fall. Generalized weakness. Recent left superior and medial dislocation of femoral prothesis, recurrent dislocation. Vit B12 deficiency. HTN HLD Falls ZENON Right shoulder pain, arthritis. Obesity. Emotional stress. RECOMMENDATIONS/PLAN: Continue medical and surgical treatment. Continue Mestinon, 60 mg qid. Continue Prednisone 20 mg daily. OT/PT. Rehab. Past Medical History Cardiovascular: CAD, Other Pulmonary: Asthma CENTRAL NERVOUS SYSTEM: Peripheral neuropathy Endocrine: Diabetes Past Surgical History Appendectomy, Arthroscopy, Total hip replacement, Hysterectomy, Other Family History Hypertension Social History Smoke: No ALCOHOL: none Drugs: None ALLERGY: Reviewed. MEDICATIONS: Refer to MAR REVIEW OF SYSTEMS: Constitutional: No malnutrition, weight loss, cachexia. Head: No traumatic brain or head injury. Skin: No edema, or rash. Ear: No infection. Eyes: No vision loss or color blindness. Nose: No bleeding or purulent discharges. Hearing: Hearing decrease. Neck: No injury. Breast: No history of cancer, masses,or discharges. Cardiac: HTN, HLD. Pulmonary: ZENON GI: No GI ulcer, GI bleeding. Urinary/genital: UTI. Endocrinologic: Obesity. Skeletomuscular: Falls.. Neurological: see HP. Psychiatric: Denies drug use/abuse. Otherwise, not [id number] review of systems. PHYSICAL EXAMINATION: General appearance is in subacute distress. HEENT: Normocephalic and nontraumatic. Eyes, nose, ears, and throat are unremarkable. Neck is supple. No lymphadenopathy. No bruits are heard over the carotid artery. No crepitus. Cardiovascular: S1, S2, regular rate and rhythm. Pulmonary: Clear to auscultation bilaterally. Abdomen: Bowel sounds are positive. Abdomen is soft, nontender, and nondistended. Extremities: No rash, lesions, or edema. No restriction of range of motion NEUROLOGICAL EXAMINATION: Alert Oriented to time, place and person. PERRL. EOMI. CN: no focal findings. Muscle tone: within normal. Muscle strength: 4+, 3 left LE. DTR: 1-2 Plantar reflex: Flexor response bilaterally Gait: Unable to walk. Sensory exam: no abnormal findings. No cerebellar signs elicited. F-T-N test fine. Objective Objective Vital Signs Date Time Temp Pulse Resp B/P (MAP) Pulse Ox O2 Delivery O2 Flow Rate FiO2 04/17/17 14:19 90 Nasal Cannula 2.0 04/17/17 11:00 97.9 60 18 95/62 (73) 97.9 Intake and Output 04/17/17 07:00 Intake Total 2490 ml Output Total 725 ml Balance 1765 ml Intake Oral 540 ml IV Total 1950 ml Output Urine Total 0 ml Stool Total 0 ml Drainage Total 325 ml Estimated Blood Loss 400 ml # Voids 2 Vitals Signs Vitals VS - Last 72 Hours, by Label Date Time Temp Pulse Resp B/P (MAP) Pulse Ox O2 Delivery O2 Flow Rate FiO2 04/17/17 14:19 90 Nasal Cannula 2.0 04/17/17 13:46 Room Air 04/17/17 13:13 Nasal Cannula 2.0 04/17/17 13:13 Room Air 04/17/17 11:00 97.9 60 18 95/62 (73) 90 Nasal Cannula 2.0 97.9 04/17/17 10:19 92 2.0 04/17/17 09:41 92 Room Air 04/17/17 09:35 73 124/60 04/17/17 09:34 73 124/60 04/17/17 07:00 97.7 73 18 124/60 (81) 92 Nasal Cannula 2.0 97.7 04/17/17 05:05 Nasal Cannula 04/17/17 03:00 98.1 77 18 144/53 (83) 99 Nasal Cannula 2.0 98.1 04/17/17 01:40 Nasal Cannula 2.0 04/16/17 23:29 Room Air 04/16/17 23:00 98.1 78 18 113/44 (67) 94 Nasal Cannula 2.0 98.1 04/16/17 20:41 Room Air 04/16/17 20:00 Nasal Cannula 2.0 04/16/17 19:00 97.5 74 18 119/34 (62) 97 Nasal Cannula 2.0 97.5 04/16/17 18:53 20 04/16/17 18:23 20 Room Air 04/16/17 15:00 97.7 71 18 111/47 (68) 91 Nasal Cannula 2.0 97.7 04/16/17 13:05 98.0 78 20 113/60 92 3 98.0 04/16/17 12:50 98.0 78 20 131/50 92 Nasal Cannula 3 98.0 04/16/17 12:35 98.0 77 20 111/49 92 Nasal Cannula 2 98.0 04/16/17 12:20 84 20 110/52 95 Simple Mask 10 04/16/17 12:05 99 20 123/52 95 Simple Mask 10 04/16/17 11:49 100.3 133 22 133/60 95 Simple Mask 10 100.3 04/16/17 11:49 Mask 10 04/16/17 08:00 Room Air 2.0 04/16/17 07:48 20 95 BiPAP/CPAP 2.0 Laboratory Laboratory Laboratory Tests Test 04/17/17 04:32 White Blood Count 11.9 x10^3/uL (4.0-11.0) Red Blood Count 3.78 x10^6/uL (3.50-5.40) Hemoglobin 9.7 g/dL (12.0-15.5) Hematocrit 31.1 % (36.0-47.0) Mean Corpuscular Volume 82 fL (79-100) Mean Corpuscular Hemoglobin 26 pg (25-35) Mean Corpuscular Hemoglobin Concent 31 g/dL (31-37) Red Cell Distribution Width 18.8 % (11.5-14.5) Platelet Count 342 x10^3/uL (140-400) Neutrophils (%) (Auto) 71 % (31-73) Lymphocytes (%) (Auto) 20 % (24-48) Monocytes (%) (Auto) 7 % (0-9) Eosinophils (%) (Auto) 1 % (0-3) Basophils (%) (Auto) 1 % (0-3) Neutrophils # (Auto) 8.5 x10^3uL (1.8-7.7) Lymphocytes # (Auto) 2.3 x10^3/uL (1.0-4.8) Monocytes # (Auto) 0.9 x10^3/uL (0.0-1.1) Eosinophils # (Auto) 0.1 x10^3/uL (0.0-0.7) Basophils # (Auto) 0.1 x10^3/uL (0.0-0.2) Sodium Level 142 mmol/L (136-145) Potassium Level 4.2 mmol/L (3.5-5.1) Chloride Level 105 mmol/L (98-107) Carbon Dioxide Level 32 mmol/L (21-32) Anion Gap 5 (6-14) Blood Urea Nitrogen 22 mg/dL (7-20) Creatinine 0.7 mg/dL (0.6-1.0) Estimated GFR (Cockcroft-Gault) 83.5 Glucose Level 86 mg/dL (70-99) Calcium Level 9.0 mg/dL (8.5-10.1) Comment Review of Relevant I have reviewed the following items antonio (where applicable) has been applied. ELEANOR KENNEY MD Apr 17, 2017 15:22
[2017-04-17] MEDS: ERGOCALCIFEROL (VITAMIN D2) 50,000 UNIT CAPSULE. PO SCH (17:02)
--- NOTE | 2017-04-17 18:13 | PDOC ---
PROGRESS NOTES Subjective Subjective Problems overnight: Feels much better that left hip is reduced mild expected soreness but getting around much better overall weakness is likewise improved Objective Vital Signs Vital Signs Date Time Temp Pulse Resp B/P (MAP) Pulse Ox O2 Delivery O2 Flow Rate FiO2 04/17/17 17:04 Room Air 2.0 04/17/17 15:00 97.9 82 18 115/43 (67) 85 97.9 Physical Exam Leg lengths are equal distal neurovascular status intact. Hemovac has expected drainage slowing and wound itself has a wound VAC with no drainage whatsoever Labs Laboratory Tests Test 04/16/17 03:20 04/17/17 04:32 White Blood Count 11.9 x10^3/uL (4.0-11.0) 11.9 x10^3/uL (4.0-11.0) Red Blood Count 4.49 x10^6/uL (3.50-5.40) 3.78 x10^6/uL (3.50-5.40) Hemoglobin 11.5 g/dL (12.0-15.5) 9.7 g/dL (12.0-15.5) Hematocrit 36.6 % (36.0-47.0) 31.1 % (36.0-47.0) Mean Corpuscular Volume 81 fL (79-100) 82 fL (79-100) Mean Corpuscular Hemoglobin 26 pg (25-35) 26 pg (25-35) Mean Corpuscular Hemoglobin Concent 31 g/dL (31-37) 31 g/dL (31-37) Red Cell Distribution Width 18.8 % (11.5-14.5) 18.8 % (11.5-14.5) Platelet Count 386 x10^3/uL (140-400) 342 x10^3/uL (140-400) Neutrophils (%) (Auto) 62 % (31-73) 71 % (31-73) Lymphocytes (%) (Auto) 28 % (24-48) 20 % (24-48) Monocytes (%) (Auto) 8 % (0-9) 7 % (0-9) Eosinophils (%) (Auto) 2 % (0-3) 1 % (0-3) Basophils (%) (Auto) 1 % (0-3) 1 % (0-3) Neutrophils # (Auto) 7.3 x10^3uL (1.8-7.7) 8.5 x10^3uL (1.8-7.7) Lymphocytes # (Auto) 3.4 x10^3/uL (1.0-4.8) 2.3 x10^3/uL (1.0-4.8) Monocytes # (Auto) 0.9 x10^3/uL (0.0-1.1) 0.9 x10^3/uL (0.0-1.1) Eosinophils # (Auto) 0.2 x10^3/uL (0.0-0.7) 0.1 x10^3/uL (0.0-0.7) Basophils # (Auto) 0.1 x10^3/uL (0.0-0.2) 0.1 x10^3/uL (0.0-0.2) Sodium Level 142 mmol/L (136-145) 142 mmol/L (136-145) Potassium Level 3.7 mmol/L (3.5-5.1) 4.2 mmol/L (3.5-5.1) Chloride Level 106 mmol/L (98-107) 105 mmol/L (98-107) Carbon Dioxide Level 30 mmol/L (21-32) 32 mmol/L (21-32) Anion Gap 6 (6-14) 5 (6-14) Blood Urea Nitrogen 19 mg/dL (7-20) 22 mg/dL (7-20) Creatinine 0.6 mg/dL (0.6-1.0) 0.7 mg/dL (0.6-1.0) Estimated GFR (Cockcroft-Gault) 99.7 83.5 Glucose Level 72 mg/dL (70-99) 86 mg/dL (70-99) Calcium Level 9.7 mg/dL (8.5-10.1) 9.0 mg/dL (8.5-10.1) Laboratory Tests Test 04/17/17 04:32 White Blood Count 11.9 x10^3/uL (4.0-11.0) Red Blood Count 3.78 x10^6/uL (3.50-5.40) Hemoglobin 9.7 g/dL (12.0-15.5) Hematocrit 31.1 % (36.0-47.0) Mean Corpuscular Volume 82 fL (79-100) Mean Corpuscular Hemoglobin 26 pg (25-35) Mean Corpuscular Hemoglobin Concent 31 g/dL (31-37) Red Cell Distribution Width 18.8 % (11.5-14.5) Platelet Count 342 x10^3/uL (140-400) Neutrophils (%) (Auto) 71 % (31-73) Lymphocytes (%) (Auto) 20 % (24-48) Monocytes (%) (Auto) 7 % (0-9) Eosinophils (%) (Auto) 1 % (0-3) Basophils (%) (Auto) 1 % (0-3) Neutrophils # (Auto) 8.5 x10^3uL (1.8-7.7) Lymphocytes # (Auto) 2.3 x10^3/uL (1.0-4.8) Monocytes # (Auto) 0.9 x10^3/uL (0.0-1.1) Eosinophils # (Auto) 0.1 x10^3/uL (0.0-0.7) Basophils # (Auto) 0.1 x10^3/uL (0.0-0.2) Sodium Level 142 mmol/L (136-145) Potassium Level 4.2 mmol/L (3.5-5.1) Chloride Level 105 mmol/L (98-107) Carbon Dioxide Level 32 mmol/L (21-32) Anion Gap 5 (6-14) Blood Urea Nitrogen 22 mg/dL (7-20) Creatinine 0.7 mg/dL (0.6-1.0) Estimated GFR (Cockcroft-Gault) 83.5 Glucose Level 86 mg/dL (70-99) Calcium Level 9.0 mg/dL (8.5-10.1) Assessment Assessment POD# [1], S/P [open reduction with 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
[2017-04-17 19:00] VITALS: BP 108/42
[2017-04-17] MEDS: ALPRAZolam 1 MG TABLET PO PRN (22:21)
[2017-04-17] MEDS: ATORVASTATIN CALCIUM 10 MG TABLET. PO SCH (22:21)
[2017-04-17 23:00] VITALS: BP 111/37
[2017-04-18 03:00] VITALS: BP 115/47
[2017-04-18 05:08] LABS: BASO % 0 % (0-3); EOS % 2 % (0-3); HEMATOCRIT 27.3 % (36.0-47.0); HEMOGLOBIN 8.5 g/dL (12.0-15.5); LYMPH # 2.4 x10^3/uL (1.0-4.8); LYMPH % 25 % (24-48); MEAN CORPUSCULAR HEMOGLOBIN 26 pg (25-35); MEAN CORPUSCULAR HGB CONC 31 g/dL (31-37); MEAN CORPUSCULAR VOLUME 82 fL (79-100); MONO % 8 % (0-9); NEUT % 65 % (31-73); PLATELET COUNT 323 x10^3/uL (140-400); RED BLOOD COUNT 3.34 x10^6/uL (3.50-5.40); RED CELL DISTRIBUTION WIDTH 18.7 % (11.5-14.5); WHITE BLOOD COUNT 9.6 x10^3/uL (4.0-11.0)
[2017-04-18 05:28] LABS: CALCIUM 9.3 mg/dL (8.5-10.1); CREATININE 0.6 mg/dL (0.6-1.0); GFR 99.7
[2017-04-18 05:48] LABS: POTASSIUM 3.9 mmol/L (3.5-5.1)
[2017-04-18 07:00] VITALS: BP 115/68
[2017-04-18] MEDS: amLODIPine BESYLATE 10 MG TABLET PO SCH (09:00)
[2017-04-18] MEDS: LOSARTAN POTASSIUM 50 MG TABLET. PO SCH (09:00)
[2017-04-18] MEDS: CALCIUM CARBONATE 500 MG TABLET PO SCH ×3 (09:28→17:19)
[2017-04-18] MEDS: buPROPion XL 150 MG TAB.ER.24H. PO SCH (09:28)
[2017-04-18] MEDS: GABAPENTIN 300 MG CAPSULE. PO SCH ×3 (09:28→21:13)
[2017-04-18] MEDS: FAMOTIDINE 20 MG TABLET. PO SCH (09:29)
[2017-04-18] MEDS: predniSONE 20 MG TABLET PO SCH (09:29)
[2017-04-18] MEDS: CHOLECALCIFEROL (VITAMIN D3) 1,000 UNIT TABLET PO SCH (09:29)
[2017-04-18] MEDS: PYRIDOSTIGMINE BROMIDE 60 MG TABLET PO SCH ×4 (09:29→21:13)
[2017-04-18] MEDS: DULoxetine HCL 30 MG CAPSULE.DR PO SCH (09:29)
[2017-04-18] MEDS: KETOROLAC 30 MG/ML INJ. IV PRN (09:30)
[2017-04-18] MEDS: HYDROcodone/APAP 10/325 1 TAB TABLET PO PRN ×2 (09:40→21:14)
[2017-04-18 11:00] VITALS: BP 131/76
--- NOTE | 2017-04-18 12:04 | PDOC ---
PULMONARY PROGRESS NOTES Subjective PT WITH NO INCREASE SOA Vitals Vital Signs Date Time Temp Pulse Resp B/P (MAP) Pulse Ox O2 Delivery O2 Flow Rate FiO2 04/18/17 10:40 92 Nasal Cannula 2.0 04/18/17 07:00 97.9 72 18 115/68 (84) 97.9 ROS: No Nausea, No Chest Pain, No Abdominal Pain, No Increase Cough General: Alert, No acute distress Lungs: Clear Cardiovascular: S1, S2 Abdomen: Soft Neuro Exam: Alert Extremities: No Edema Skin: Warm Labs Laboratory Tests Test 04/17/17 04:32 04/18/17 03:55 White Blood Count 11.9 x10^3/uL (4.0-11.0) 9.6 x10^3/uL (4.0-11.0) Red Blood Count 3.78 x10^6/uL (3.50-5.40) 3.34 x10^6/uL (3.50-5.40) Hemoglobin 9.7 g/dL (12.0-15.5) 8.5 g/dL (12.0-15.5) Hematocrit 31.1 % (36.0-47.0) 27.3 % (36.0-47.0) Mean Corpuscular Volume 82 fL (79-100) 82 fL (79-100) Mean Corpuscular Hemoglobin 26 pg (25-35) 26 pg (25-35) Mean Corpuscular Hemoglobin Concent 31 g/dL (31-37) 31 g/dL (31-37) Red Cell Distribution Width 18.8 % (11.5-14.5) 18.7 % (11.5-14.5) Platelet Count 342 x10^3/uL (140-400) 323 x10^3/uL (140-400) Neutrophils (%) (Auto) 71 % (31-73) 65 % (31-73) Lymphocytes (%) (Auto) 20 % (24-48) 25 % (24-48) Monocytes (%) (Auto) 7 % (0-9) 8 % (0-9) Eosinophils (%) (Auto) 1 % (0-3) 2 % (0-3) Basophils (%) (Auto) 1 % (0-3) 0 % (0-3) Neutrophils # (Auto) 8.5 x10^3uL (1.8-7.7) 6.2 x10^3uL (1.8-7.7) Lymphocytes # (Auto) 2.3 x10^3/uL (1.0-4.8) 2.4 x10^3/uL (1.0-4.8) Monocytes # (Auto) 0.9 x10^3/uL (0.0-1.1) 0.7 x10^3/uL (0.0-1.1) Eosinophils # (Auto) 0.1 x10^3/uL (0.0-0.7) 0.2 x10^3/uL (0.0-0.7) Basophils # (Auto) 0.1 x10^3/uL (0.0-0.2) 0.0 x10^3/uL (0.0-0.2) Sodium Level 142 mmol/L (136-145) 143 mmol/L (136-145) Potassium Level 4.2 mmol/L (3.5-5.1) 3.9 mmol/L (3.5-5.1) Chloride Level 105 mmol/L (98-107) 107 mmol/L (98-107) Carbon Dioxide Level 32 mmol/L (21-32) 35 mmol/L (21-32) Anion Gap 5 (6-14) 1 (6-14) Blood Urea Nitrogen 22 mg/dL (7-20) 21 mg/dL (7-20) Creatinine 0.7 mg/dL (0.6-1.0) 0.6 mg/dL (0.6-1.0) Estimated GFR (Cockcroft-Gault) 83.5 99.7 Glucose Level 86 mg/dL (70-99) 95 mg/dL (70-99) Calcium Level 9.0 mg/dL (8.5-10.1) 9.3 mg/dL (8.5-10.1) Laboratory Tests Test 04/18/17 03:55 White Blood Count 9.6 x10^3/uL (4.0-11.0) Red Blood Count 3.34 x10^6/uL (3.50-5.40) Hemoglobin 8.5 g/dL (12.0-15.5) Hematocrit 27.3 % (36.0-47.0) Mean Corpuscular Volume 82 fL (79-100) Mean Corpuscular Hemoglobin 26 pg (25-35) Mean Corpuscular Hemoglobin Concent 31 g/dL (31-37) Red Cell Distribution Width 18.7 % (11.5-14.5) Platelet Count 323 x10^3/uL (140-400) Neutrophils (%) (Auto) 65 % (31-73) Lymphocytes (%) (Auto) 25 % (24-48) Monocytes (%) (Auto) 8 % (0-9) Eosinophils (%) (Auto) 2 % (0-3) Basophils (%) (Auto) 0 % (0-3) Neutrophils # (Auto) 6.2 x10^3uL (1.8-7.7) Lymphocytes # (Auto) 2.4 x10^3/uL (1.0-4.8) Monocytes # (Auto) 0.7 x10^3/uL (0.0-1.1) Eosinophils # (Auto) 0.2 x10^3/uL (0.0-0.7) Basophils # (Auto) 0.0 x10^3/uL (0.0-0.2) Sodium Level 143 mmol/L (136-145) Potassium Level 3.9 mmol/L (3.5-5.1) Chloride Level 107 mmol/L (98-107) Carbon Dioxide Level 35 mmol/L (21-32) Anion Gap 1 (6-14) Blood Urea Nitrogen 21 mg/dL (7-20) Creatinine 0.6 mg/dL (0.6-1.0) Estimated GFR (Cockcroft-Gault) 99.7 Glucose Level 95 mg/dL (70-99) Calcium Level 9.3 mg/dL (8.5-10.1) Medications Active Scripts Medications Dose Route/Sig Max Daily Dose Days Date Category Hydrocodone-Apap 7.5-325 (Hydrocodone Bit/Acetaminophen) 1 Each Tablet 1 Tab PO PRN Q6HRS PRN 03/07/17 Rx Mestinon (Pyridostigmine [place]) 60 Mg Tablet 60 Mg PO QID 02/28/17 Reported Amlodipine Besylate 10 Mg Tablet 10 Mg PO DAILY 05/23/16 Rx Cymbalta (Duloxetine Hcl) 60 Mg Capsule.dr 2 Cap PO DAILY 02/19/16 Reported Gabapentin 300 Mg Capsule 300 Mg PO TID 02/04/16 Reported Xanax (Alprazolam) 0.5 Mg Tablet 1 Mg PO PRN TID PRN 10/04/13 Reported Vitamin D-3 (Cholecalciferol (Vitamin D3)) 2,000 Unit Tablet 1,000 Unit PO DAILY06 08/21/13 Reported Atorvastatin Calcium 10 Mg Tablet 10 Mg PO DAILY 07/31/13 Reported Losartan Potassium 100 Mg Tablet 100 Mg PO DAILY 07/31/13 Reported Bupropion Xl (Bupropion Hcl) 300 Mg Tab.er.24h 300 Mg PO DAILY 07/31/13 Reported Impression . 1. Acute respiratory distress secondary to exacerbation of myasthenia gravis. 2. Exacerbation of myasthenia gravis. 3. Peripheral neuropathy. 4. Anxiety/depression. 5. Obstructive sleep apnea.On home CPAP 6. CXR with elevated right soco-diaphragm Plan . 1. monitoring negative inspiratory force on a PRN basis. 2. plasmapheresis. 3. Respiratory status is compensated at this time. 4. Continue oxygen supplementation. 5. No need for antibiotics. 6. Mestinon per Neuro 7. CPAP qhs clinically improving DIANNA HOLLIS MD Apr 18, 2017 12:04
[2017-04-18] MEDS: HYDROcodone/APAP 7.5/325MG 1 TAB TABLET PO PRN (13:26)
[2017-04-18 15:00] VITALS: BP 108/71
--- NOTE | 2017-04-18 15:01 | PDOC ---
PROGRESS NOTES Chief Complaint Chief Complaint 1. Gen weakness, myasthenia flare -s/p plasmapharesis (3 sessions) 2, OBEsity, HTN, etc - chronic stable 3. Normal Grief 4. Left hip dislocation s/p sx 04/16 5. FAll 04/15/17 plan: fu with neuro, ortho cont PTOT pt wants go home, but PTOT still recommend snf talked to SW, HH TMR no DVT PPX as per Ortho cont meds for MG History of Present Illness History of Present Illness Was about to dc home monday after completion of 3 plama exchanges, but fell that day NOw hip dislocated - hx of prosthetic hip same side ROS: no fever, chills, sob or chest pain feels ok post op 04/16 Vitals Vitals Vital Signs Date Time Temp Pulse Resp B/P (MAP) Pulse Ox O2 Delivery O2 Flow Rate FiO2 04/18/17 13:26 92 Room Air 04/18/17 11:00 97.6 82 18 131/76 (94) 2.0 97.6 Physical Exam General: Alert, Oriented X3, Cooperative, No acute distress, Other (down spirit ) Heart: Regular rate, Normal S1, Normal S2 Lungs: Clear Abdomen: Normal bowel sounds, Soft, No tenderness, No hepatosplenomegaly, No masses Extremities: No clubbing, No cyanosis, No edema, Normal pulses, No tenderness/ swelling Skin: No rashes, No breakdown, No significant lesion Labs LABS Laboratory Tests Test 04/18/17 03:55 White Blood Count 9.6 x10^3/uL (4.0-11.0) Red Blood Count 3.34 x10^6/uL (3.50-5.40) Hemoglobin 8.5 g/dL (12.0-15.5) Hematocrit 27.3 % (36.0-47.0) Mean Corpuscular Volume 82 fL (79-100) Mean Corpuscular Hemoglobin 26 pg (25-35) Mean Corpuscular Hemoglobin Concent 31 g/dL (31-37) Red Cell Distribution Width 18.7 % (11.5-14.5) Platelet Count 323 x10^3/uL (140-400) Neutrophils (%) (Auto) 65 % (31-73) Lymphocytes (%) (Auto) 25 % (24-48) Monocytes (%) (Auto) 8 % (0-9) Eosinophils (%) (Auto) 2 % (0-3) Basophils (%) (Auto) 0 % (0-3) Neutrophils # (Auto) 6.2 x10^3uL (1.8-7.7) Lymphocytes # (Auto) 2.4 x10^3/uL (1.0-4.8) Monocytes # (Auto) 0.7 x10^3/uL (0.0-1.1) Eosinophils # (Auto) 0.2 x10^3/uL (0.0-0.7) Basophils # (Auto) 0.0 x10^3/uL (0.0-0.2) Sodium Level 143 mmol/L (136-145) Potassium Level 3.9 mmol/L (3.5-5.1) Chloride Level 107 mmol/L (98-107) Carbon Dioxide Level 35 mmol/L (21-32) Anion Gap 1 (6-14) Blood Urea Nitrogen 21 mg/dL (7-20) Creatinine 0.6 mg/dL (0.6-1.0) Estimated GFR (Cockcroft-Gault) 99.7 Glucose Level 95 mg/dL (70-99) Calcium Level 9.3 mg/dL (8.5-10.1) Assessment and Plan Assessmemt and Plan Problems Medical Problems: (1) Respiratory depression Status: Acute Problems: Comment Review of Relevant I have reviewed the following items antonio (where applicable) has been applied. Labs Laboratory Tests Test 04/17/17 04:32 04/18/17 03:55 White Blood Count 11.9 x10^3/uL (4.0-11.0) 9.6 x10^3/uL (4.0-11.0) Red Blood Count 3.78 x10^6/uL (3.50-5.40) 3.34 x10^6/uL (3.50-5.40) Hemoglobin 9.7 g/dL (12.0-15.5) 8.5 g/dL (12.0-15.5) Hematocrit 31.1 % (36.0-47.0) 27.3 % (36.0-47.0) Mean Corpuscular Volume 82 fL (79-100) 82 fL (79-100) Mean Corpuscular Hemoglobin 26 pg (25-35) 26 pg (25-35) Mean Corpuscular Hemoglobin Concent 31 g/dL (31-37) 31 g/dL (31-37) Red Cell Distribution Width 18.8 % (11.5-14.5) 18.7 % (11.5-14.5) Platelet Count 342 x10^3/uL (140-400) 323 x10^3/uL (140-400) Neutrophils (%) (Auto) 71 % (31-73) 65 % (31-73) Lymphocytes (%) (Auto) 20 % (24-48) 25 % (24-48) Monocytes (%) (Auto) 7 % (0-9) 8 % (0-9) Eosinophils (%) (Auto) 1 % (0-3) 2 % (0-3) Basophils (%) (Auto) 1 % (0-3) 0 % (0-3) Neutrophils # (Auto) 8.5 x10^3uL (1.8-7.7) 6.2 x10^3uL (1.8-7.7) Lymphocytes # (Auto) 2.3 x10^3/uL (1.0-4.8) 2.4 x10^3/uL (1.0-4.8) Monocytes # (Auto) 0.9 x10^3/uL (0.0-1.1) 0.7 x10^3/uL (0.0-1.1) Eosinophils # (Auto) 0.1 x10^3/uL (0.0-0.7) 0.2 x10^3/uL (0.0-0.7) Basophils # (Auto) 0.1 x10^3/uL (0.0-0.2) 0.0 x10^3/uL (0.0-0.2) Sodium Level 142 mmol/L (136-145) 143 mmol/L (136-145) Potassium Level 4.2 mmol/L (3.5-5.1) 3.9 mmol/L (3.5-5.1) Chloride Level 105 mmol/L (98-107) 107 mmol/L (98-107) Carbon Dioxide Level 32 mmol/L (21-32) 35 mmol/L (21-32) Anion Gap 5 (6-14) 1 (6-14) Blood Urea Nitrogen 22 mg/dL (7-20) 21 mg/dL (7-20) Creatinine 0.7 mg/dL (0.6-1.0) 0.6 mg/dL (0.6-1.0) Estimated GFR (Cockcroft-Gault) 83.5 99.7 Glucose Level 86 mg/dL (70-99) 95 mg/dL (70-99) Calcium Level 9.0 mg/dL (8.5-10.1) 9.3 mg/dL (8.5-10.1) Laboratory Tests Test 04/18/17 03:55 White Blood Count 9.6 x10^3/uL (4.0-11.0) Red Blood Count 3.34 x10^6/uL (3.50-5.40) Hemoglobin 8.5 g/dL (12.0-15.5) Hematocrit 27.3 % (36.0-47.0) Mean Corpuscular Volume 82 fL (79-100) Mean Corpuscular Hemoglobin 26 pg (25-35) Mean Corpuscular Hemoglobin Concent 31 g/dL (31-37) Red Cell Distribution Width 18.7 % (11.5-14.5) Platelet Count 323 x10^3/uL (140-400) Neutrophils (%) (Auto) 65 % (31-73) Lymphocytes (%) (Auto) 25 % (24-48) Monocytes (%) (Auto) 8 % (0-9) Eosinophils (%) (Auto) 2 % (0-3) Basophils (%) (Auto) 0 % (0-3) Neutrophils # (Auto) 6.2 x10^3uL (1.8-7.7) Lymphocytes # (Auto) 2.4 x10^3/uL (1.0-4.8) Monocytes # (Auto) 0.7 x10^3/uL (0.0-1.1) Eosinophils # (Auto) 0.2 x10^3/uL (0.0-0.7) Basophils # (Auto) 0.0 x10^3/uL (0.0-0.2) Sodium Level 143 mmol/L (136-145) Potassium Level 3.9 mmol/L (3.5-5.1) Chloride Level 107 mmol/L (98-107) Carbon Dioxide Level 35 mmol/L (21-32) Anion Gap 1 (6-14) Blood Urea Nitrogen 21 mg/dL (7-20) Creatinine 0.6 mg/dL (0.6-1.0) Estimated GFR (Cockcroft-Gault) 99.7 Glucose Level 95 mg/dL (70-99) Calcium Level 9.3 mg/dL (8.5-10.1) Medications Current Medications Pyridostigmine Slaughters (Mestinon) 60 mg 1X STAT PO Last administered on 15:37; Start 04/11/17 at 15:08; Stop 04/11/17 at 15:09; Status DC Sodium Chloride 1,000 ml @ 100 mls/hr Q10H IV Last administered on 04/11/17 15:37; Start 04/11/17 at 15:07; Stop 04/12/17 at 01:06; Status DC Magnesium Sulfate/ Dextrose 50 ml @ 25 mls/hr 1X ONCE IV Last administered on 04/11/17 16:36; Start 04/11/17 at 16:30; Stop 04/11/17 at 18:29; Status DC Alprazolam (Xanax) 1 mg PRN TID PRN PO ANXIETY Last administered on 04/17/17 22:21; Start 04/11/17 at 16:00 Amlodipine Besylate (Norvasc) 10 mg DAILY PO Last administered on 04/17/17 09 :35; Start 04/12/17 at 09:00 Atorvastatin Calcium (Lipitor) 10 mg QHS PO Last administered on 04/17/17 22: 21; Start 04/11/17 at 21:00 Acetaminophen/ Hydrocodone Bitart (Lortab 7.5/325) 1 tab PRN Q6HRS PRN PO MILD - MODERATE PAIN Last administered on 04/18/17 13:26; Start 04/11/17 at 16:00 Pyridostigmine [place] (Mestinon) 60 mg QID PO Last administered on 04/18/17 13:25; Start 04/11/17 at 17:00 Bupropion HCl (Wellbutrin Xl) 300 mg DAILY PO Last administered on 04/18/17 09:28; Start 04/12/17 at 09:00 Vitamin D (Vitamin D3) 1,000 unit DAILY PO Last administered on 04/18/17 09: 29; Start 04/12/17 at 09:00 Duloxetine HCl (Cymbalta) 120 mg DAILY PO Last administered on 04/18/17 09:29 ; Start 04/12/17 at 09:00 Gabapentin (Neurontin) 300 mg TID PO Last administered on 04/18/17 13:25; Start 04/11/17 at 21:00 Losartan Potassium (Cozaar) 100 mg DAILY PO Last administered on 04/17/17 09: 34; Start 04/12/17 at 09:00 Diphenhydramine HCl (Benadryl) 25 mg PRN QHS PRN PO INSOMNIA Last administered on 04/14/17 15:30; Start 04/11/17 at 16:15 Prednisone (Prednisone) 20 mg DAILY PO Last administered on 04/18/17 09:29; Start 04/11/17 at 17:15 Calcium Carbonate/ Glycine (Oscal) 500 mg TIDAFTMEAL PO Last administered on 13:25; Start 04/11/17 at 18:00 Famotidine (Pepcid) 20 mg DAILY PO Last administered on 04/18/17 09:29; Start 04/12/17 at 09:00 Ergocalciferol (Vitamin D2) 50,000 unit QMTH PO Last administered on 17:02; Start 04/13/17 at 16:00 Heparin Sodium (Porcine) (Hep Lock Adult) 500 unit 1X ONCE IV Last administered on 04/11/17 17:28; Start 04/11/17 at 17:30; Stop 04/11/17 at 17:31 ; Status DC Heparin Sodium (Porcine) (Heparin Sodium) 2,000 unit 1X ONCE IV Last administered on 04/12/17 09:42; Start 04/12/17 at 08:45; Stop 04/12/17 at 08:46 ; Status DC Diphenhydramine HCl (Benadryl) 25 mg 1X PRN PRN IV ITCHING; Start 04/12/17 at 08:45; Stop 04/13/17 at 08:44; Status DC Diphenhydramine HCl (Benadryl) 25 mg 1X PRN PRN IV ITCHING; Start 04/12/17 at 08:45; Stop 04/13/17 at 08:44; Status DC Albumin Human 2,000 ml @ 0 mls/hr 1X ONCE IV ; Start 04/12/17 at 09:00; Stop 04/12/17 at 09:01; Status DC Albumin Human 1,500 ml @ 0 mls/hr 1X ONCE IV ; Start 04/13/17 at 09:00; Stop 04/13/17 at 09:02; Status DC Heparin Sodium (Porcine) (Heparin Sodium) 2,000 unit 1X ONCE IV ; Start at 09:00; Stop 04/13/17 at 09:02; Status DC Potassium Chloride (Klor-Con) 40 meq TID PO Last administered on 04/14/17 09: 41; Start 04/13/17 at 14:00; Stop 04/14/17 at 09:01; Status DC Albumin Human 1,500 ml @ 0 mls/hr 1X ONCE IV Last administered on 04/13/17 17:53; Start 04/13/17 at 15:30; Stop 04/13/17 at 15:31; Status DC Heparin Sodium (Porcine) (Heparin Sodium) 2,000 unit 1X ONCE IV Last administered on 04/13/17 17:51; Start 04/13/17 at 15:30; Stop 04/13/17 at 15:31 ; Status DC Albumin Human 2,000 ml @ 125 mls/hr 1X ONCE IV Last administered on 12:53; Start 04/14/17 at 11:15; Stop 04/15/17 at 03:14; Status DC Ketorolac Tromethamine (Toradol) 30 mg PRN Q6HRS PRN IV MILD TO MODERATE PAIN Last administered on 04/16/17 20:42; Start 04/15/17 at 16:45; Stop 04/20/17 at 16:44 Morphine Sulfate 2 mg PRN Q2HR PRN IV PAIN Last administered on 04/17/17 13: 13; Start 04/15/17 at 18:45 Acetaminophen/ Hydrocodone Bitart (Lortab 10/325) 1 tab PRN Q3HRS PRN PO SEVERE PAIN Last administered on 04/18/17 09:40; Start 04/15/17 at 18:45 Morphine Sulfate 5 mg/Ketorolac Tromethamine 30 mg/Ropivacaine 60 ml/ Epinephrine HCl 0.5 mg/Sodium Chloride 100 ml @ 100 mls/hr 1X PERIOP ONCE INT ART Last administered on 04/16/17t 08:43; Start 04/16/17 at 06:00; Stop 05/21 at 07:08; Status DC Rocuronium Slaughters (Zemuron) 50 mg STK-MED ONCE .ROUTE ; Start 04/16/17 at 07: 24; Stop 04/16/17 at 07:25; Status DC Fentanyl Citrate (Fentanyl 5ml Vial) 250 mcg STK-MED ONCE .ROUTE ; Start at 07:24; Stop 04/16/17 at 07:25; Status DC Propofol 20 ml @ As Directed STK-MED ONCE IV ; Start 04/16/17 at 07:24; Stop 04/16/17 at 07:25; Status DC Dexamethasone Sodium Phosphate (Decadron) 20 mg STK-MED ONCE .ROUTE ; Start 05/21 at 07:24; Stop 04/16/17 at 07:25; Status DC Lidocaine HCl (Lidocaine Pf 2% Vial) 5 ml STK-MED ONCE .ROUTE ; Start 04/16/17 at 07:24; Stop 04/16/17 at 07:25; Status DC Ondansetron HCl (Zofran) 4 mg STK-MED ONCE .ROUTE ; Start 04/16/17 at 07:24; Stop 04/16/17 at 07:25; Status DC Clindamycin Phosphate 50 ml @ 100 mls/hr 1X PREOP PRN IV PRIOR TO PROCEDURE; Start 04/16/17 at 08:30; Stop 04/16/17 at 12:00; Status DC Glycopyrrolate (Robinul) 1 mg STK-MED ONCE .ROUTE ; Start 04/16/17 at 08:30; Stop 04/16/17 at 08:31; Status DC Hydrocortisone Sodium Succinate (Solu-CORTEF) 100 mg STK-MED ONCE .ROUTE ; Start 04/16/17 at 08:32; Stop 04/16/17 at 08:33; Status DC Ephedrine Sulfate (Akovaz) 50 mg STK-MED ONCE .ROUTE ; Start 04/16/17 at 08:39 ; Stop 04/16/17 at 08:40; Status DC Ondansetron HCl (Zofran) 4 mg PRN Q6HRS PRN IV NAUSEA/VOMITING; Start at 10:00; Stop 04/16/17 at 18:00; Status DC Fentanyl Citrate (Fentanyl 2ml Vial) 25 mcg PRN Q5MIN PRN IV MILD PAIN; Start 04/16/17 at 10:00; Stop 04/16/17 at 18:00; Status DC Fentanyl Citrate (Fentanyl 2ml Vial) 50 mcg PRN Q5MIN PRN IV MODERATE PAIN; Start 04/16/17 at 10:00; Stop 04/16/17 at 18:00; Status DC Morphine Sulfate 1 mg PRN Q10MIN PRN IV SEVERE PAIN; Start 04/16/17 at 10:00; Stop 04/16/17 at 18:00; Status DC Ringer's Solution 1,000 ml @ 30 mls/hr Q24H IV ; Start 04/16/17 at 10:00; Stop 04/16/17 at 18:00; Status DC Lidocaine HCl (Xylocaine-Mpf 1% Vial) 2 ml PRN 1X PRN ID PRIOR TO IV START; Start 04/16/17 at 10:00; Stop 04/16/17 at 18:00; Status DC Hydromorphone HCl (Dilaudid) 0.5 mg PRN Q10MIN PRN IV SEV PAIN, Second choice; Start 04/16/17 at 10:00; Stop 04/16/17 at 18:00; Status DC Prochlorperazine Edisylate (Compazine) 5 mg PACU PRN PRN IV NAUSEA, MRX1; Start 04/16/17 at 10:00; Stop 04/16/17 at 18:00; Status DC Phenylephrine HCl 1 mg STK-MED ONCE IV ; Start 04/16/17 at 10:14; Stop at 10:15; Status DC Sevoflurane (Ultane) 90 ml STK-MED ONCE IH ; Start 04/16/17 at 10:14; Stop 05/21 at 10:15; Status DC Phenylephrine HCl 1 mg STK-MED ONCE IV ; Start 04/16/17 at 11:24; Stop at 11:25; Status DC Clindamycin Phosphate 50 ml @ 100 mls/hr 1X PREOP PRN IV PRIOR TO PROCEDURE; Start 04/16/17 at 12:30; Stop 04/16/17 at 12:33; Status DC Clindamycin Phosphate 50 ml @ 100 mls/hr Q8HRS IV Last administered on 05:08; Start 04/16/17 at 14:00; Stop 04/17/17 at 13:59; Status DC Clindamycin Phosphate 50 ml @ 100 mls/hr 1X PREOP PRN IV PRIOR TO PROCEDURE Last administered on 04/16/17 08:33; Start 04/16/17 at 08:30; Stop 04/16/17 at 12:37; Status DC Sodium Chloride 1,000 ml @ 125 mls/hr 1X ONCE IV Last administered on 08:10; Start 04/16/17 at 08:00; Stop 04/16/17 at 15:59; Status DC Active Scripts Active Hydrocodone-Apap 7.5-325 (Hydrocodone Bit/Acetaminophen) 1 Each Tablet 1 Tab PO PRN Q6HRS PRN Amlodipine Besylate 10 Mg Tablet 10 Mg PO DAILY Reported Mestinon (Pyridostigmine Slaughters) 60 Mg Tablet 60 Mg PO QID Cymbalta (Duloxetine Hcl) 60 Mg Capsule.dr 2 Cap PO DAILY Gabapentin 300 Mg Capsule 300 Mg PO TID Xanax (Alprazolam) 0.5 Mg Tablet 1 Mg PO PRN TID PRN Vitamin D-3 (Cholecalciferol (Vitamin D3)) 2,000 Unit Tablet 1,000 Unit PO DAILY06 Atorvastatin Calcium 10 Mg Tablet 10 Mg PO DAILY Losartan Potassium 100 Mg Tablet 100 Mg PO DAILY Bupropion Xl (Bupropion Hcl) 300 Mg Tab.er.24h 300 Mg PO DAILY Vitals/I & O Vital Sign - Last 24 Hours 04/17/17 04/17/17 04/17/17 04/17/17 17:04 19:00 20:50 23:00 Temp 97.9 97.7 97.9 97.7 Pulse 83 72 Resp 18 18 B/P (MAP) 108/42 (64) 111/37 (61) Pulse Ox 93 O2 Delivery Room Air Nasal Cannula Room Air Nasal Cannula O2 Flow Rate 2.0 2.0 2.0 04/18/17 04/18/17 04/18/1714/17 03:00 07:00 08:05 09:40 Temp 96.4 97.9 96.4 97.9 Pulse 70 72 Resp 18 18 B/P (MAP) 115/47 (69) 115/68 (84) Pulse Ox 93 96 92 O2 Delivery BiPAP/CPAP Nasal Cannula Room Air Room Air O2 Flow Rate 2.0 2.0 2.0 04/18/17 04/18/17 04/18/17 10:40 11:00 13:26 Temp 97.6 97.6 Pulse 82 Resp 18 B/P (MAP) 131/76 (94) Pulse Ox 92 94 92 O2 Delivery Nasal Cannula BiPAP/CPAP Room Air O2 Flow Rate 2.0 2.0 Intake and Output 04/17/17 04/17/17 04/18/17 15:00 23:00 07:00 Intake Total 200 ml 200 ml Output Total 175 ml 100 ml 100 ml Balance -175 ml 100 ml 100 ml GIRISH BURT MD Apr 18, 2017 15:01
--- NOTE | 2017-04-18 17:41 | PDOC ---
PROGRESS NOTES Assessment Assessment MG. Slurred speech as her symptoms of MG. Fall. Generalized weakness. Recent left superior and medial dislocation of femoral prothesis, recurrent dislocation. Vit B12 deficiency. HTN HLD Falls ZENON Right shoulder pain, arthritis. Obesity. Emotional stress. RECOMMENDATIONS/PLAN: Continue medical and surgical treatment. Continue Mestinon, 60 mg qid. Continue Prednisone 20 mg daily. OT/PT. Rehab as needed. Past Medical History Cardiovascular: CAD, Other Pulmonary: Asthma CENTRAL NERVOUS SYSTEM: Peripheral neuropathy Endocrine: Diabetes Past Surgical History Appendectomy, Arthroscopy, Total hip replacement, Hysterectomy, Other Family History Hypertension Social History Smoke: No ALCOHOL: none Drugs: None ALLERGY: Reviewed. MEDICATIONS: Refer to MAR REVIEW OF SYSTEMS: Constitutional: No malnutrition, weight loss, cachexia. Head: No traumatic brain or head injury. Skin: No edema, or rash. Ear: No infection. Eyes: No vision loss or color blindness. Nose: No bleeding or purulent discharges. Hearing: Hearing decrease. Neck: No injury. Breast: No history of cancer, masses,or discharges. Cardiac: HTN, HLD. Pulmonary: ZENON GI: No GI ulcer, GI bleeding. Urinary/genital: UTI. Endocrinologic: Obesity. Skeletomuscular: Falls.. Neurological: see HP. Psychiatric: Denies drug use/abuse. Otherwise, not [id number] review of systems. PHYSICAL EXAMINATION: General appearance is in subacute distress. HEENT: Normocephalic and nontraumatic. Eyes, nose, ears, and throat are unremarkable. Neck is supple. No lymphadenopathy. No bruits are heard over the carotid artery. No crepitus. Cardiovascular: S1, S2, regular rate and rhythm. Pulmonary: Clear to auscultation bilaterally. Abdomen: Bowel sounds are positive. Abdomen is soft, nontender, and nondistended. Extremities: No rash, lesions, or edema. No restriction of range of motion NEUROLOGICAL EXAMINATION: Alert Oriented to time, place and person. PERRL. EOMI. CN: no focal findings. Muscle tone: within normal. Muscle strength: 4+, 3 left LE. DTR: 1-2 Plantar reflex: Flexor response bilaterally Gait: not examed in chair. Sensory exam: no abnormal findings. No cerebellar signs elicited. F-T-N test fine. Objective Objective Vital Signs Date Time Temp Pulse Resp B/P (MAP) Pulse Ox O2 Delivery O2 Flow Rate FiO2 11/14/17 15:00 98.2 78 18 108/71 (83) 96 Room Air 98.2 04/18/17 11:00 2.0 Intake and Output 04/18/17 07:00 Intake Total 400 ml Output Total 375 ml Balance 25 ml Intake Oral 400 ml Drainage Total 375 ml # Voids 3 Vitals Signs Vitals VS - Last 72 Hours, by Label Date Time Temp Pulse Resp B/P (MAP) Pulse Ox O2 Delivery O2 Flow Rate FiO2 04/18/17 15:00 98.2 78 18 108/71 (83) 96 Room Air 98.2 04/18/17 14:30 92 Room Air 04/18/17 13:26 92 Room Air 04/18/17 11:00 97.6 82 18 131/76 (94) 94 BiPAP/CPAP 2.0 97.6 04/18/17 10:40 92 Nasal Cannula 2.0 04/18/17 09:40 92 Room Air 2.0 04/18/17 08:05 Room Air 04/18/17 07:00 97.9 72 18 115/68 (84) 96 Nasal Cannula 2.0 97.9 04/18/17 03:00 96.4 70 18 115/47 (69) 93 BiPAP/CPAP 2.0 96.4 04/17/17 23:00 97.7 72 18 111/37 (61) 93 Nasal Cannula 2.0 97.7 04/17/17 20:50 Room Air 04/17/17 19:00 97.9 83 18 108/42 (64) Nasal Cannula 2.0 97.9 04/17/17 17:04 Room Air 2.0 04/17/17 15:00 97.9 82 18 115/43 (67) 85 Nasal Cannula 2.0 97.9 04/17/17 13:46 Room Air 04/17/17 13:13 Nasal Cannula 2.0 04/17/17 13:13 Room Air 04/17/17 11:00 97.9 60 18 95/62 (73) 90 Nasal Cannula 2.0 97.9 04/17/17 10:19 92 2.0 04/17/17 09:41 92 Room Air 04/17/17 09:35 73 124/60 04/17/17 09:34 73 124/60 04/17/17 08:10 Room Air 11/13/17 07:00 97.7 73 18 124/60 (81) 92 Nasal Cannula 2.0 97.7 Laboratory Laboratory Laboratory Tests Test 04/18/17 03:55 White Blood Count 9.6 x10^3/uL (4.0-11.0) Red Blood Count 3.34 x10^6/uL (3.50-5.40) Hemoglobin 8.5 g/dL (12.0-15.5) Hematocrit 27.3 % (36.0-47.0) Mean Corpuscular Volume 82 fL (79-100) Mean Corpuscular Hemoglobin 26 pg (25-35) Mean Corpuscular Hemoglobin Concent 31 g/dL (31-37) Red Cell Distribution Width 18.7 % (11.5-14.5) Platelet Count 323 x10^3/uL (140-400) Neutrophils (%) (Auto) 65 % (31-73) Lymphocytes (%) (Auto) 25 % (24-48) Monocytes (%) (Auto) 8 % (0-9) Eosinophils (%) (Auto) 2 % (0-3) Basophils (%) (Auto) 0 % (0-3) Neutrophils # (Auto) 6.2 x10^3uL (1.8-7.7) Lymphocytes # (Auto) 2.4 x10^3/uL (1.0-4.8) Monocytes # (Auto) 0.7 x10^3/uL (0.0-1.1) Eosinophils # (Auto) 0.2 x10^3/uL (0.0-0.7) Basophils # (Auto) 0.0 x10^3/uL (0.0-0.2) Sodium Level 143 mmol/L (136-145) Potassium Level 3.9 mmol/L (3.5-5.1) Chloride Level 107 mmol/L (98-107) Carbon Dioxide Level 35 mmol/L (21-32) Anion Gap 1 (6-14) Blood Urea Nitrogen 21 mg/dL (7-20) Creatinine 0.6 mg/dL (0.6-1.0) Estimated GFR (Cockcroft-Gault) 99.7 Glucose Level 95 mg/dL (70-99) Calcium Level 9.3 mg/dL (8.5-10.1) Comment Review of Relevant I have reviewed the following items antonio (where applicable) has been applied. ELEANOR KENNEY MD Apr 18, 2017 17:41
[2017-04-18 19:00] VITALS: BP 114/69
[2017-04-18] MEDS: ATORVASTATIN CALCIUM 10 MG TABLET. PO SCH (21:13)
[2017-04-18] MEDS: ALPRAZolam 1 MG TABLET PO PRN (21:13)
[2017-04-18 22:58] VITALS: BP 117/68
[2017-04-19 03:00] VITALS: BP 139/74
[2017-04-19 04:46] LABS: BASO # 0.1 x10^3/uL (0.0-0.2); BASO % 1 % (0-3); EOS % 3 % (0-3); HEMOGLOBIN 8.6 g/dL (12.0-15.5); LYMPH # 2.7 x10^3/uL (1.0-4.8); LYMPH % 29 % (24-48); MEAN CORPUSCULAR HEMOGLOBIN 26 pg (25-35); MEAN CORPUSCULAR HGB CONC 32 g/dL (31-37); MEAN CORPUSCULAR VOLUME 81 fL (79-100); MONO % 8 % (0-9); NEUT % 60 % (31-73); PLATELET COUNT 337 x10^3/uL (140-400); RED BLOOD COUNT 3.36 x10^6/uL (3.50-5.40); RED CELL DISTRIBUTION WIDTH 18.5 % (11.5-14.5); WHITE BLOOD COUNT 9.4 x10^3/uL (4.0-11.0)
[2017-04-19 05:07] LABS: CALCIUM 9.6 mg/dL (8.5-10.1); CREATININE 0.6 mg/dL (0.6-1.0); GFR 99.7; POTASSIUM 3.6 mmol/L (3.5-5.1)
[2017-04-19 07:00] VITALS: BP 134/68
[2017-04-19] MEDS: DULoxetine HCL 30 MG CAPSULE.DR PO SCH (09:13)
[2017-04-19] MEDS: PYRIDOSTIGMINE BROMIDE 60 MG TABLET PO SCH ×2 (09:14→12:50)
[2017-04-19] MEDS: buPROPion XL 150 MG TAB.ER.24H. PO SCH (09:14)
[2017-04-19] MEDS: GABAPENTIN 300 MG CAPSULE. PO SCH ×2 (09:17→12:50)
[2017-04-19] MEDS: CHOLECALCIFEROL (VITAMIN D3) 1,000 UNIT TABLET PO SCH (09:17)
[2017-04-19] MEDS: CALCIUM CARBONATE 500 MG TABLET PO SCH ×2 (09:17→12:50)
[2017-04-19] MEDS: predniSONE 20 MG TABLET PO SCH (09:18)
[2017-04-19] MEDS: FAMOTIDINE 20 MG TABLET. PO SCH (09:18)
[2017-04-19] MEDS: amLODIPine BESYLATE 10 MG TABLET PO SCH (09:19)
[2017-04-19] MEDS: LOSARTAN POTASSIUM 50 MG TABLET. PO SCH (09:21)
[2017-04-19] MEDS ORDERED: HYDR-2766 PO (09:47)
[2017-04-19] MEDS ORDERED: FERR325T72 PO (09:47)
[2017-04-19] MEDS ORDERED: ERGO500027 PO (09:47)
[2017-04-19] MEDS ORDERED: PRED20TA PO (09:47)
[2017-04-19] MEDS ORDERED: FAMO20TA5 PO (09:50)
[2017-04-19] MEDS ORDERED: FERROUS SULFATE 325 MG TABLET. PO SCH (10:00)
[2017-04-19 11:00] VITALS: BP 132/51
[2017-04-19] MEDS: HYDROcodone/APAP 10/325 1 TAB TABLET PO PRN (12:56)
--- NOTE | 2017-04-19 13:10 | PDOC3 ---
Discharge Summary [facility] Date of Admission: Apr 11, 2017 Discharge Date: Apr 19, 2017 Admitting Diagnosis 1. Gen weakness, myasthenia flare -s/p plasmapharesis (3 sessions) 2, OBEsity, HTN, etc - chronic stable 3. Normal Grief 4. Left hip dislocation s/p sx 04/16 5. FAll 04/15/17 Problems: Final Diagnosis CONSULTS dr. Dao neuro Procedures left hip reduction Brief Hospital Course Ms. Ramey is a 66 old F, with MG, came here often for weakness, got plasmapharesis x5 last time, this time got 3 times and weakness is better. Then she fell in the bathroom , was found left hip dislocation, got reduction by ortho. hemovac removed today, cont wound vac. poor home environment, sick at SNF, daughter recently suicided with depression and family/finacial issues. dc home with HHm cont prednisone and pyrostigmine. dc tiem 35min General: Alert, Oriented X3, Cooperative, No acute distress, Other (down spirit ) Heart: Regular rate, Normal S1, Normal S2 Lungs: Clear Abdomen: Normal bowel sounds, Soft, No tenderness, No hepatosplenomegaly, No masses Extremities: No clubbing, No cyanosis, No edema, Normal pulses, No tenderness/ swelling. left thigh has wound vac on. hemovac removed Skin: No rashes, No breakdown, No significant lesion Patient History: FH: Hodgkins disease 32 MOTHER Family history: Autoimmune disease (situation) G8 DAUGHTER Family history: Breast disease (situation) 32 MOTHER Family history: Cardiomyopathy (situation) 32 MOTHER Family history: Cardiovascular disease (situation) 32 MOTHER Family history: Gallbladder disease (situation) 33 FATHER Family history: Gastrointestinal disease (situation) 33 FATHER Family history: Hypertension (situation) 32 MOTHER Polymyositis G8 DAUGHTER Problems: Disposition HH CONDITION AT DISCHARGE: Improved, Stable Diet REGULAR Scheduled Amlodipine Besylate (Amlodipine Besylate), 10 MG PO DAILY Atorvastatin Calcium (Atorvastatin Calcium), 10 MG PO DAILY, (Reported) Bupropion Hcl (Bupropion Xl), 300 MG PO DAILY, (Reported) Cholecalciferol (Vitamin D3) (Vitamin D-3), 1,000 UNIT PO DAILY06, (Reported) Duloxetine Hcl (Cymbalta), 2 CAP PO DAILY, (Reported) Ergocalciferol (Vitamin D2) (Vitamin D2), 50,000 UNIT PO QMTH Famotidine (Famotidine), 20 MG PO DAILY Ferrous Sulfate (Feosol), 325 MG PO DAILYWBKFT Gabapentin (Gabapentin), 300 MG PO TID, (Reported) Losartan Potassium (Losartan Potassium), 100 MG PO DAILY, (Reported) Prednisone (Prednisone), 20 MG PO DAILY Pyridostigmine [place] (Mestinon), 60 MG PO QID, (Reported) Scheduled PRN Alprazolam (Xanax), 1 MG PO PRN TID PRN for ANXIETY, (Reported) Hydrocodone Bit/Acetaminophen (Hydrocodone-Apap 7.5-325 ), 1 TAB PO PRN Q6HRS PRN for PAIN Hydrocodone Bit/Acetaminophen (Hydrocodone-Apap 10-325 ), 1 TAB PO PRN Q3HRS PRN for SEVERE PAIN Follow Up ortho in 2 weeks neuro in 2 weeks GIRISH BURT MD Apr 19, 2017 13:10
--- NOTE | 2017-04-19 15:44 | PDOC ---
PROGRESS NOTES Assessment Assessment MG. Slurred speech as her symptoms of MG. Fall. Generalized weakness. Recent left superior and medial dislocation of femoral prothesis, recurrent dislocation. Vit B12 deficiency. HTN HLD Falls ZENON Right shoulder pain, arthritis. Obesity. Emotional stress. RECOMMENDATIONS/PLAN: Continue medical and surgical treatment. Continue Mestinon, 60 mg qid. Continue Prednisone 20 mg daily. OT/PT. FU with Neurology in 2-4 weeks. Past Medical History Cardiovascular: CAD, Other Pulmonary: Asthma CENTRAL NERVOUS SYSTEM: Peripheral neuropathy Endocrine: Diabetes Past Surgical History Appendectomy, Arthroscopy, Total hip replacement, Hysterectomy, Other Family History Hypertension Social History Smoke: No ALCOHOL: none Drugs: None ALLERGY: Reviewed. MEDICATIONS: Refer to MAR REVIEW OF SYSTEMS: Constitutional: No malnutrition, weight loss, cachexia. Head: No traumatic brain or head injury. Skin: No edema, or rash. Ear: No infection. Eyes: No vision loss or color blindness. Nose: No bleeding or purulent discharges. Hearing: Hearing decrease. Neck: No injury. Breast: No history of cancer, masses,or discharges. Cardiac: HTN, HLD. Pulmonary: ZENON GI: No GI ulcer, GI bleeding. Urinary/genital: UTI. Endocrinologic: Obesity. Skeletomuscular: Falls.. Neurological: see HP. Psychiatric: Denies drug use/abuse. Otherwise, not [id number] review of systems. PHYSICAL EXAMINATION: General appearance is in subacute distress. HEENT: Normocephalic and nontraumatic. Eyes, nose, ears, and throat are unremarkable. Neck is supple. No lymphadenopathy. No bruits are heard over the carotid artery. No crepitus. Cardiovascular: S1, S2, regular rate and rhythm. Pulmonary: Clear to auscultation bilaterally. Abdomen: Bowel sounds are positive. Abdomen is soft, nontender, and nondistended. Extremities: No rash, lesions, or edema. No restriction of range of motion NEUROLOGICAL EXAMINATION: Alert Oriented to time, place and person. PERRL. EOMI. CN: no focal findings. Muscle tone: within normal. Muscle strength: 4+, 3 left LE. DTR: 1-2 Plantar reflex: Flexor response bilaterally Gait: able to walk with a walker. Sensory exam: no abnormal findings. No cerebellar signs elicited. F-T-N test fine. Objective Objective Vital Signs Date Time Temp Pulse Resp B/P (MAP) Pulse Ox O2 Delivery O2 Flow Rate FiO2 04/19/17 12:56 Room Air 04/19/17 11:00 97.9 87 16 132/51 (78) 98 97.9 04/18/17 11:00 2.0 Intake and Output 04/19/17 07:00 Intake Total 240 ml Output Total 300 ml Balance -60 ml Intake Oral 240 ml Drainage Total 300 ml # Voids 4 Vitals Signs Vitals VS - Last 72 Hours, by Label Date Time Temp Pulse Resp B/P (MAP) Pulse Ox O2 Delivery O2 Flow Rate FiO2 04/19/17 12:56 Room Air 04/19/17 11:00 97.9 87 16 132/51 (78) 98 Room Air 97.9 04/19/17 09:21 74 134/68 04/19/17 09:19 74 134/68 04/19/17 07:30 Room Air 04/19/17 07:00 97.5 74 18 134/68 (90) 92 Room Air 97.5 04/19/17 03:00 97.4 66 18 139/74 (95) 91 Room Air 97.4 04/19/17 00:17 BiPAP/CPAP 04/18/17 22:58 97.9 75 18 117/68 (84) 92 Room Air 97.9 04/18/17 21:14 Room Air 04/18/17 20:20 Room Air 04/18/17 19:00 97.4 76 18 114/69 (84) 93 Room Air 97.4 04/18/17 15:00 98.2 78 18 108/71 (83) 96 Room Air 98.2 04/18/17 14:30 92 Room Air 04/18/17 13:26 92 Room Air 04/18/17 11:00 97.6 82 18 131/76 (94) 94 BiPAP/CPAP 2.0 97.6 04/18/17 10:40 92 2.0 04/18/17 09:40 92 Room Air 2.0 04/18/17 08:05 Room Air 04/18/17 07:00 97.9 72 18 115/68 (84) 96 Nasal Cannula 2.0 97.9 Laboratory Laboratory Laboratory Tests Test 04/19/17 04:05 White Blood Count 9.4 x10^3/uL (4.0-11.0) Red Blood Count 3.36 x10^6/uL (3.50-5.40) Hemoglobin 8.6 g/dL (12.0-15.5) Hematocrit 27.0 % (36.0-47.0) Mean Corpuscular Volume 81 fL (79-100) Mean Corpuscular Hemoglobin 26 pg (25-35) Mean Corpuscular Hemoglobin Concent 32 g/dL (31-37) Red Cell Distribution Width 18.5 % (11.5-14.5) Platelet Count 337 x10^3/uL (140-400) Neutrophils (%) (Auto) 60 % (31-73) Lymphocytes (%) (Auto) 29 % (24-48) Monocytes (%) (Auto) 8 % (0-9) Eosinophils (%) (Auto) 3 % (0-3) Basophils (%) (Auto) 1 % (0-3) Neutrophils # (Auto) 5.6 x10^3uL (1.8-7.7) Lymphocytes # (Auto) 2.7 x10^3/uL (1.0-4.8) Monocytes # (Auto) 0.7 x10^3/uL (0.0-1.1) Eosinophils # (Auto) 0.3 x10^3/uL (0.0-0.7) Basophils # (Auto) 0.1 x10^3/uL (0.0-0.2) Sodium Level 142 mmol/L (136-145) Potassium Level 3.6 mmol/L (3.5-5.1) Chloride Level 106 mmol/L (98-107) Carbon Dioxide Level 36 mmol/L (21-32) Anion Gap 0 (6-14) Blood Urea Nitrogen 23 mg/dL (7-20) Creatinine 0.6 mg/dL (0.6-1.0) Estimated GFR (Cockcroft-Gault) 99.7 Glucose Level 76 mg/dL (70-99) Calcium Level 9.6 mg/dL (8.5-10.1) Medication Medications Current Medications Ferrous Sulfate (Feosol) 325 mg DAILYWBKFT PO Last administered on 04/19/17t 11:24; Start 04/19/17 at 10:00 Comment Review of Relevant I have reviewed the following items antonio (where applicable) has been applied. ELEANOR KENNEY MD Apr 19, 2017 15:44
== END 2017-04-19 13:25 | disposition home health service (06) | DRG 982 ==
LOC: ER 14:26 → 6 SOUTH 15:53 → 1 WEST ICU 19:20 → 6 SOUTH 04-12 13:00 → 4 NORTH 04-16 13:13
PROVIDERS: ADMIT Internal Medicine; ATTEND Internal Medicine
PROC: 6A551Z3 Pheresis of Plasma, Multiple (ICD-10-PCS; 2017-04-12)
PROC: 05HM33Z Insertion of Infusion Device into Right Internal Jugular Vein, Percutaneous Approach (ICD-10-PCS; 2017-04-12)
PROC: 30233L1 Transfusion of Nonautologous Fresh Plasma into Peripheral Vein, Percutaneous Approach (ICD-10-PCS; 2017-04-13)
PROC: 30233K1 Transfusion of Nonautologous Frozen Plasma into Peripheral Vein, Percutaneous Approach (ICD-10-PCS; 2017-04-13)
PROC: 5A09357 Assistance with Respiratory Ventilation, Less than 24 Consecutive Hours, Continuous Positive Airway Pressure (ICD-10-PCS; 2017-04-13)
PROC: 5A09457 Assistance with Respiratory Ventilation, 24-96 Consecutive Hours, Continuous Positive Airway Pressure (ICD-10-PCS; 2017-04-15)
PROC: 0SPB0JZ Removal of Synthetic Substitute from Left Hip Joint, Open Approach (ICD-10-PCS; 2017-04-16)
PROC: 0SRB0J9 Replacement of Left Hip Joint with Synthetic Substitute, Cemented, Open Approach (ICD-10-PCS; principal; 2017-04-16 08:00)
DX: G70.01 Myasthenia gravis with (acute) exacerbation (principal); T84.021A Dislocation of internal left hip prosthesis, initial encounter; E11.42 Type 2 diabetes mellitus with diabetic polyneuropathy; E66.9 Obesity, unspecified; W18.2XXA Fall in (into) shower or empty bathtub, initial encounter; E53.8 Deficiency of other specified B group vitamins; Z68.35 Body mass index [BMI] 35.0-35.9, adult; E78.00 Pure hypercholesterolemia, unspecified; E78.5 Hyperlipidemia, unspecified; F32.9 Major depressive disorder, single episode, unspecified; F41.9 Anxiety disorder, unspecified; G47.33 Obstructive sleep apnea (adult) (pediatric); I10 Essential (primary) hypertension; I25.10 Atherosclerotic heart disease of native coronary artery without angina pectoris; J45.909 Unspecified asthma, uncomplicated; K90.0 Celiac disease; M19.90 Unspecified osteoarthritis, unspecified site; R09.02 Hypoxemia; Z96.612 Presence of left artificial shoulder joint; M54.5 Low back pain; Y79.2 Prosthetic and other implants, materials and accessory orthopedic devices associated with adverse incidents; Z82.49 Family history of ischemic heart disease and other diseases of the circulatory system; Z85.828 Personal history of other malignant neoplasm of skin; Z87.442 Personal history of urinary calculi; Z90.49 Acquired absence of other specified parts of digestive tract; Z91.5 Personal history of self-harm; Z88.0 Allergy status to penicillin; Z88.2 Allergy status to sulfonamides; Z88.8 Allergy status to other drugs, medicaments and biological substances; Z91.81 History of falling; Z90.710 Acquired absence of both cervix and uterus; Z98.61 Coronary angioplasty status; Y93.E1 Activity, personal bathing and showering; Y92.091 Bathroom in other non-institutional residence as the place of occurrence of the external cause; Y99.8 Other external cause status; R06.03 Acute respiratory distress; R53.1 Weakness
CPT/HCPCS: 36415; 71010; 73502; 80048; 80053; 81001; 82040; 83735; 85025; 85384; 85610; 85730; 86850; 86900; 86901; 86927; 87641; 93005; 96361; 96365; 96375; 97168; C1713; J0171; J1100; J1720; J1885; J2270; J2370; J2405; J2704; J2795; J3010; J3490; J7030; J7060; J7512; P9017; P9045; P9612; Q0163; 92526; 92610; 97110; 97116; 97530; 97535; 99285-25; J2001

== ENCOUNTER 2017-04-20 19:49 | Emergency (ER) | payer MEDICARE, BC ==
[~2017-04-20] VITALS: Ht 172.7 cm; Wt 92.5 kg
[~2017-04-20 19:49] MED LIST changes: +ERGO500027 PO; +FAMO20TA5 PO; +FERR325T72 PO; +PRED20TA PO
[2017-04-20 20:27] VITALS: BP 135/60
--- NOTE | 2017-04-20 22:14 | PHYS DOC ---
Past Medical History Past Medical History: Depression, High Cholesterol, Hypertension, Kidney Stone , Other Additional Past Medical Histor: obesity, celiac, sleep apnea,vision problems, MYASTHENIA GRAVIS Past Surgical History: Cholecystectomy, Hip Replacement Additional Past Surgical Histo: pericardial window,left shoulder replacement, hernia repair,left ovary tumo Alcohol Use: None Drug Use: None Adult General Chief Complaint Chief Complaint: WOUND CHECK HPI HPI 66-year-old female with a history of left total hip replacement and many surgeries dealing with this hip and complications thereof, now status post surgery 4 days ago. Patient states she had her wound VAC removed this morning because the wound VAC company "wanted it back. "Patient is concerned because she 's had some blood-tinged fluid draining from the wound since then. The dressing gets red with this blood-tinged fluid and she was concerned that this is not normal. And has not opened and there is no pus tenderness warmth or redness. She has no fevers chills sweats or shaking chills. No headache or stiff neck no chest pain or shortness of breath denies abdominal pain and has normal bowel and bladder habits. Patient has no other complaints Review of Systems Review of Systems Constitutional: Denies fever or chills [] Eyes: Denies change in visual acuity, redness, or eye pain [] HENT: Denies nasal congestion or sore throat [] Respiratory: Denies cough or shortness of breath [] Cardiovascular: No additional information not addressed in HPI [] GI: Denies abdominal pain, nausea, vomiting, bloody stools or diarrhea [] : Denies dysuria or hematuria [] Musculoskeletal: Denies back pain or joint pain [] Integument: Denies rash or skin lesions [] Neurologic: Denies headache, focal weakness or sensory changes [] Endocrine: Denies polyuria or polydipsia [] All other systems were reviewed and found to be within normal limits, except as documented in this note. Allergies Allergies Allergies Coded Allergies Type Severity Reaction Last Updated Verified Penicillins Allergy Intermediate Rash 04/16/17 Yes ciprofloxacin Allergy Intermediate 04/16/17 Yes Sulfa (Sulfonamide Antibiotics) Adverse Reaction Intermediate Nausea 04/16/17 Yes Physical Exam Physical Exam Well-appearing 66-year-old female no acute distress completely benign exam. Large incision parallel to the long axis of her femur or left hip area clean dry and intact with yovani in place. Dressing with blood tinged serous sanguinous exudate appropriate for her postoperative state. No erythema warmth fluctuance crepitus or dehiscence of any kind. This is a completely normal- appearing wound for the patient's postoperative state. Remainder of exam is benign Constitutional: Well developed, well nourished, no acute distress, non-toxic appearance. [] HENT: Normocephalic, atraumatic, bilateral external ears normal, oropharynx moist, no oral exudates, nose normal. [] Eyes: PERRLA, EOMI, conjunctiva normal, no discharge. [] Neck: Normal range of motion, no tenderness, supple, no stridor. [] Cardiovascular:Heart rate regular rhythm, no murmur [] Lungs & Thorax: Bilateral breath sounds clear to auscultation [] Abdomen: Bowel sounds normal, soft, no tenderness, no masses, no pulsatile masses. [] Skin: Warm, dry, no erythema, no rash. [] Back: No tenderness, no CVA tenderness. [] Extremities: No tenderness, no cyanosis, no clubbing, ROM intact, no edema. [] Neurologic: Alert and oriented X 3, normal motor function, normal sensory function, no focal deficits noted. [] Psychologic: Affect normal, judgement normal, mood normal. [] Current Patient Data Vital Signs Vital Signs Date Time Temp Pulse Resp B/P (MAP) Pulse Ox O2 Delivery O2 Flow Rate FiO2 04/20/17 20:27 72 12 135/60 (85) 96 Room Air 04/20/17 19:50 98.3 98.3 EKG EKG [] Radiology/Procedures Radiology/Procedures [] Course & Med Decision Making Course & Med Decision Making Pertinent Labs and Imaging studies reviewed. (See chart for details) Signs and symptoms consistent with appropriate and typical postoperative serosanguineous exudative drainage from a surgical wound which is well approximated with no signs of infection seroma or complication. No further workup or treatment indicated. Case discussed with Dr. Henriquez's partner Dr. jarrell an orthopedic surgeon who is aware the history and findings,agrees with no further intervention at this time. He requested the patient comes orthopedic office in the morning for reevaluation and to apply another wound VAC as needed. Patient agrees with outpatient follow-up and strict return precautions given [] Dragon Disclaimer Dragon Disclaimer This electronic medical record was generated, in whole or in part, using a voice recognition dictation system. Departure Departure Impression: Primary Impression: Wound drainage Additional Impression: Wound exudate without odor Disposition: 01 HOME, SELF-CARE Condition: GOOD Referrals: ERIC WHITING MD (PCP) Additional Instructions: Your left hip surgical wound appears to be healing well. The drainage of blood- tinged fluid from your wound is called serous sanguinous exudate and is very common and expected in the postoperative setting. Expect the need to change the dressing several times before your follow-up with orthopedics in the morning to reapply a new wound VAC. Your case was discussed with Dr Henriquez's partner Dr. dockery is aware of the history and findings of your wound drainage and recommends follow-up in the orthopedics office in the morning to apply a new wound VAC. Return for signs of infection or pus draining from your wound. Problem Qualifiers SUGAR ORTEZ MD Apr 20, 2017 22:14
== END 2017-04-20 22:35 | disposition home or self-care (01) ==
LOC: ER 19:49
DX: M96.89 Other intraoperative and postprocedural complications and disorders of the musculoskeletal system (principal); F32.9 Major depressive disorder, single episode, unspecified; E78.00 Pure hypercholesterolemia, unspecified; I10 Essential (primary) hypertension; E66.9 Obesity, unspecified; G47.30 Sleep apnea, unspecified; G70.00 Myasthenia gravis without (acute) exacerbation; Z96.642 Presence of left artificial hip joint; Z96.612 Presence of left artificial shoulder joint; Z88.2 Allergy status to sulfonamides; Z88.0 Allergy status to penicillin; Z88.1 Allergy status to other antibiotic agents; Z87.442 Personal history of urinary calculi; Z68.31 Body mass index [BMI] 31.0-31.9, adult; Y82.8 Other medical devices associated with adverse incidents; Y83.8 Other surgical procedures as the cause of abnormal reaction of the patient, or of later complication, without mention of misadventure at the time of the procedure
CPT/HCPCS: 99284

== ENCOUNTER → 2017-06-22 | Outpatient (CLI) | payer MEDICARE, BC ==
[2017-06-22] MEDS: GADOBUTROL 10 MMOL/10 ML VIAL IV (16:42)
[2017-06-22 17:38] LABS: BILIRUBIN,URINE NEGATIVE (NEG); CLARITY,URINE CLEAR; COLOR,URINE YELLOW; GLUCOSE,URINE NEGATIVE (NEG); NITRITE,URINE NEGATIVE (NEG); PROTEIN,URINE NEGATIVE (NEG-TRACE); UROBILINOGEN,URINE 0.2 mg/dL (0.2 mg/dL)
[2017-06-22 17:46] LABS: CREATINE KINASE 65 U/L (26-192); CREATININE 0.7 mg/dL (0.6-1.0); GFR 83.2
[2017-06-22 17:46] LABS: BLOOD UREA NITROGEN 20 mg/dL (7-20)
[2017-06-22 17:56] LABS: BACTERIA,URINE 0 /HPF (0-FEW); RBC,URINE 0 /HPF (0-2); SQUAMOUS EPITHELIAL CELL,UR OCC /LPF
[2017-06-22 17:56] LABS: VITAMIN-B12 461 pg/mL (247-911)
== END | disposition home or self-care (01) ==
LOC: MRI 15:37
DX: M48.061 Spinal stenosis, lumbar region without neurogenic claudication (principal); M41.9 Scoliosis, unspecified; N20.0 Calculus of kidney; R26.81 Unsteadiness on feet; R53.1 Weakness
CPT/HCPCS: 36415; 71250; 72156; 72158; 81001; 82306; 82550; 82565; 82607; 84520; 86141; 87086; A9585

== ENCOUNTER 2017-08-10 19:16 | Emergency (ER) | payer MEDICARE, BC ==
[2017-08-10 19:42] LABS: ADD MAN DIFF? NO
[2017-08-10 19:44] LABS: BASO % 0 % (0-3); EOS % 0 % (0-3); HEMATOCRIT 41.4 % (36.0-47.0); HEMOGLOBIN 12.9 g/dL (12.0-15.5); LYMPH # 3.4 x10^3/uL (1.0-4.8); LYMPH % 27 % (24-48); MEAN CORPUSCULAR HEMOGLOBIN 24 pg (25-35); MEAN CORPUSCULAR HGB CONC 31 g/dL (31-37); MEAN CORPUSCULAR VOLUME 77 fL (79-100); MONO # 0.8 x10^3/uL (0.0-1.1); MONO % 7 % (0-9); NEUT # 8.1 x10^3uL (1.8-7.7); NEUT % 65 % (31-73); PLATELET COUNT 422 x10^3/uL (140-400); RED BLOOD COUNT 5.36 x10^6/uL (3.50-5.40); RED CELL DISTRIBUTION WIDTH 17.2 % (11.5-14.5); WHITE BLOOD COUNT 12.4 x10^3/uL (4.0-11.0)
[2017-08-10] MEDS: ONDANSETRON PF 4 MG/2 ML VIAL. IV (19:48)
[2017-08-10] MEDS: fentaNYL PF VIAL 100 MCG/2 ML VIAL IV (19:48)
[2017-08-10] MEDS: IV NORMAL SALINE 1000ML BAG 1,000 ML IV (19:49)
[2017-08-10 19:53] LABS: ANION GAP 7 (6-14); BLOOD UREA NITROGEN 29 mg/dL (7-20); BUN/CREATININE RATIO 29 (6-20); CALCIUM 10.1 mg/dL (8.5-10.1); CARBON DIOXIDE 30 mmol/L (21-32); CHLORIDE 103 mmol/L (98-107); GFR 55.1; GLUCOSE 106 mg/dL (70-99); POTASSIUM 3.5 mmol/L (3.5-5.1); SODIUM 140 mmol/L (136-145)
[2017-08-10 20:00] LABS: ALBUMIN/GLOBULIN RATIO 0.8 (1.0-1.7); ALK PHOS 97 U/L (46-116); ALT (SGPT) 25 U/L (14-59); AST (SGOT) 16 U/L (15-37); TOTAL BILIRUBIN 0.1 mg/dL (0.2-1.0); TOTAL PROTEIN 6.8 g/dL (6.4-8.2)
== END 2017-08-10 21:57 | disposition home or self-care (01) ==
LOC: ER 19:16
DX: S09.90XA Unspecified injury of head, initial encounter (principal); S09.93XA Unspecified injury of face, initial encounter; S50.02XA Contusion of left elbow, initial encounter; S00.83XA Contusion of other part of head, initial encounter; I10 Essential (primary) hypertension; G47.30 Sleep apnea, unspecified; E66.9 Obesity, unspecified; Z68.38 Body mass index [BMI] 38.0-38.9, adult; Z87.442 Personal history of urinary calculi; Z88.0 Allergy status to penicillin; Z88.1 Allergy status to other antibiotic agents; Z88.2 Allergy status to sulfonamides; W01.198A Fall on same level from slipping, tripping and stumbling with subsequent striking against other object, initial encounter; Y93.01 Activity, walking, marching and hiking; Y99.8 Other external cause status; Y92.098 Other place in other non-institutional residence as the place of occurrence of the external cause
CPT/HCPCS: 36415; 70450; 70486; 72125; 73080; 80053; 85025; 96361; 96374; 96375; 99285-25; J2405; J3010; J7030

== ENCOUNTER → 2018-04-05 | Outpatient (CLI) | payer MEDICARE, BC ==
[2017-08-10 21:25] VITALS: BP 168/72
[~2018-04-05] MED LIST changes: -AMLO10TA2 PO; +AMLO10TA6 PO; -CHOL20002 PO; +CHOL200059 PO; -CITA20TA5 PO; +CITA20TA6 PO; +HYDR-971 PO; -LOSA100T6 PO; +LOSA100T7 PO; +POTA10TA12 PO; -POTASSIUM CHLO10 MEQ PO
--- NOTE | 2018-04-05 14:26 | KCIC ---
Bilateral digital screening mammograms: Reason for examination: Routine screening. Comparison is made to previous study dated 11/30/2016. Interpretation is made with the benefit of CAD. The skin and nipples show no abnormalities. No abnormal lymph nodes are seen. The breast parenchyma is predominantly fatty. (Breast density: Category A.) There are no dominant masses, suspicious calcifications or architectural distortions. A few scattered calcifications are present. Impression: No evidence of malignancy. Recommend routine screening. BI-RADS Category 2: Benign. "Our facility is accredited by the [employer] Mammography Program." This patient's information has been entered into a reminder system for the patient to be notified with the results of her examination and a target date for the next mammogram. Electronically signed by: Shikha Hearn MD (04/05/2018 2:23 PM) [id number]
--- NOTE | 2018-04-05 15:02 | KCIC ---
MRI Thoracic Spine without contrast History: Upper to mid back pain, recent fall Technique: Multiplanar, multi sequential noncontrast MR imaging was performed of the thoracic spine. Contrast: None Comparison: None Findings: There is some motion degradation. There is superior T5 compression deformity with associated marrow edema signified by STIR hyperintense and T1 hypointense signal, no osseous retropulsion. There is mild amorphous inferior T4 vertebral body edema extending to the inferior endplate without significant height loss or retropulsion. There is accentuation of thoracic kyphosis centered at T7-8. There is hemangioma of the T8 vertebral body. AP alignment is within normal limits. Thoracic cord caliber is within normal limits without expansile or defined signal change, limited evaluation for subtle signal change due to motion artifact. There is cervical dextroscoliosis, mild thoracic levoscoliosis. There is very shallow posterior disc osteophyte complex and protrusion at T7-8 without significant spinal stenosis. Facet degenerative change contributes to mild posterior narrowing of the right T4-5 and T5-T6 neural foramina. There is [id number] degenerative disc disease T7-8, to lesser degree T3-T4 through T6-T7. There is buckling of the ligamentum flavum greatest at T3-T4 and T4-5. As seen on the localizer, there is multilevel cervical degenerative disc disease and multilevel disc osteophyte complexes and bulges, multilevel cervical spinal stenosis poorly evaluated on this exam. Patient had a dedicated cervical spine exam June 2017. Impression: 1. There is recent superior T5 compression fracture without osseous retropulsion. There is also mild amorphous edema of T4 vertebral body although no significant height loss or osseous retropulsion. 2. There is S-shaped scoliosis of the cervical thoracic spine. Electronically signed by: Gerald Vazquez MD (04/05/2018 2:59 PM) [id number]
== END | disposition home or self-care (01) ==
LOC: KCIC MAMMO 10:42
PROVIDERS: ATTEND Family Medicine
DX: Z12.31 Encounter for screening mammogram for malignant neoplasm of breast (principal); M48.54XD Collapsed vertebra, not elsewhere classified, thoracic region, subsequent encounter for fracture with routine healing; M41.84 Other forms of scoliosis, thoracic region; M51.34 Other intervertebral disc degeneration, thoracic region; M48.04 Spinal stenosis, thoracic region; M50.30 Other cervical disc degeneration, unspecified cervical region; M48.02 Spinal stenosis, cervical region; M25.78 Osteophyte, vertebrae; D18.09 Hemangioma of other sites
CPT/HCPCS: 72146; 77067

== ENCOUNTER → 2018-06-01 | Outpatient (CLI) | payer MEDICARE, BC ==
[2017-08-10 21:25] VITALS: BP 168/72
[~2018-06-01] MED LIST changes: -GABA-586 PO; +GABA300C18 PO; +HYDR-2145 PO; -HYDR-2758 PO; +HYDR-2761 PO; -HYDR-2762 PO; +HYDR-2765 PO; -HYDR-2766 PO; +HYDR-2769 PO; +HYDR-3164 PO; +HYDR-3165 PO; -HYDR-965 PO; -HYDR-971 PO; -HYDR25TA9 PO; +IOHEXOL 180 MG/ML 10 ML VIAL. ONE; +LOSA100T14 PO; -LOSA100T7 PO; +PRED2.5T PO; +methylPREDNISolone ACETATE 40 MG/ML VIAL. ONE; +methylPREDNISolone ACETATE 80 MG/ML VIAL. ONE
--- NOTE | 2018-06-02 01:51 | PAIN ---
DATE OF SERVICE: 06/01/2018 PROGRESS NOTE FOR PAIN CLINIC: DIAGNOSES: Lumbar radiculopathy with lumbar degenerative disk disease, lumbar spinal stenosis. HISTORY OF PRESENT ILLNESS: The patient is a 67-year-old female who returns for followup, last seen in 2015. The patient did well after lumbar epidural steroid injection at that time. The patient reports the pain has been returning now in the low back, in both the bilateral lower extremities, posterior gluteus, posterior lateral thigh, lateral anterior thigh, medial thighs, medial calves essentially right equal to left, somewhat worse on the right side at times, but otherwise the patient reports tingling, cramping, sharp, radiating, becoming more severe. She had a fall about 2 months ago. She previously had her hip replaced when she was here last. Also, diagnosed with myasthenia gravis. Patient reports her pain now is in the low back and in the legs as described, but also in the mid upper back between the shoulder blades and just above this. The patient reports the pain is a 9/10 at its worst, 8 on an average, 7 at least and is an 8 today. The patient did have x-ray showing T5 vertebral compression fracture that was on the 04/05/2018 film, also edema in the T4 vertebral body. The patient reports this has not been treated or investigated any further at this time. The patient reports the pain is worse with walking, standing, changing positions, doing household activities, bending, stooping. She is using a walker at all times now. She has been falling from the pain in the back and the legs. The patient reports no overt motor loss, but significant fatigability of both legs with ambulation. PHYSICAL EXAMINATION: VITAL SIGNS: The patient's blood pressure 119/61, pulse 96, respirations are 16, temperature is 98.2 degrees Fahrenheit, height is 5 feet 4 inches, weight is 254 pounds. GENERAL: The patient is awake, alert, oriented, appropriate, very pleasant demeanor. HEENT: Head shows normocephalic, atraumatic. Extraocular movements are intact and symmetrical. Oral cavity, mucous membranes are moist and pink. Dentition intact. NECK: Shows anterior throat supple without palpable lymphadenopathy noted. Swallow reflex symmetrical. CHEST: Shows normal on inspection. Breath sounds clear to auscultation bilaterally. HEART: Shows S1 and S2 clear. No murmurs auscultated. ABDOMEN: Obese, soft, nontender, nondistended. No palpable organomegaly is noted. No rebound or guarding demonstrated. BACK: Shows spine grossly in the midline. Slight exaggeration of thoracic kyphosis and minor flattening of lumbar lordotic curvature. Lumbar paraspinous muscle shows symmetrical on inspection, with palpation shows some moderate tenderness diffusely, but only in the middle and lower distribution of paraspinous muscles without radiation. The patient has good rotational motion of lumbar spine, both laterally as well as extension and flexion without significant difficulty. EXTREMITIES: Lower extremities show deep tendon reflexes at 1+ in the patellar and tendo calcaneus tendons are equal. Motor exam is approximately 4/5 and symmetrical and equal with dorsiflexion, extension, quadriceps and hamstring flexion. Peripheral pulses are 1+ posterior tibial. No peripheral edema is noted bilaterally. The patient is able to stand, stand on her toes, but loses balance fairly easily as she is unsteady on her feet. She is using a walker to ambulate. Options were discussed with the patient. The patient's old chart was reviewed as her current medication regimen updated. Current review of systems updated today as well. We will proceed with a lumbar epidural steroid injection today with fluoroscopic guidance. Risks were again discussed including, but not limited to bleeding, infection, possibility of epidural hematoma and subsequent neurological compromise, dural puncture, headaches, spinal cord and/or nerve damage, side effects of steroid medication and poor results regarding pain control. The patient understands and wished to proceed. The patient will return to clinic in approximately 2 weeks for followup, was counseled on return appointment, activity level and side effects to be aware of. DIAGNOSES: Lumbar radiculopathy with lumbar degenerative disk disease, lumbar spinal stenosis. PROCEDURE: Lumbar epidural steroid injection in translaminar approach at L4-L5 level using C-arm fluoroscopic guidance under sterile prep and drape using local anesthetic. MEDICATION INJECTED: A total of 120 mg Depo-Medrol plus 10 mL of preservative-free normal saline and 2 mL of Isovue for contrast. CONDITION AT DISCHARGE: Stable. The patient tolerated procedure well, had no complications. RK BRAGG MD DR: MARCELLA/keyanna JOB#: [id number] / [id number]
== END ==
LOC: PNCL 08:58
PROVIDERS: ATTEND Anesthesiology
DX: M51.16 Intervertebral disc disorders with radiculopathy, lumbar region (principal); M48.061 Spinal stenosis, lumbar region without neurogenic claudication
CPT/HCPCS: 62323; J1030; J1040; Q9965

== ENCOUNTER → 2018-06-28 | Outpatient (CLI) | payer MEDICARE, BC ==
[2017-08-10 21:25] VITALS: BP 168/72
--- NOTE | 2018-06-28 09:26 | PAIN ---
DATE OF SERVICE: 06/28/2018 DIAGNOSES: Lumbar radiculopathy with lumbar spinal stenosis, lumbar degenerative disk disease. HISTORY OF PRESENT ILLNESS: The patient is a 68-year-old female who returns for followup status post lumbar epidural steroid injection x 1 on 06/01/2018. The patient did very well with this, reports about 60% improvement, with pain still in the low back and right greater than left lower extremity, mostly in the posterior gluteus, posterior lateral thigh, lateral anterior thigh, anterior medial thigh, medial lower legs to the feet. The patient reports it is aching, dull, shooting, cramping, tingling, becoming more constant, more noticeable with time. The patient was doing much better initially with walking greater distances, able to do household activities with greater ease and comfort, traveling with better comfort. The patient reports it is waking her from sleep occasionally, but not most nights. The patient reports it is a 9 on a scale of 10 at its worst, 8 on average, 7 at its least and is a 7 today. The patient reports no new motor or sensory deficits, no new bowel or bladder incontinence or other complaints. PHYSICAL EXAMINATION: VITAL SIGNS: The patient's blood pressure is 143/83, pulse 91, respirations 16, temperature is 97.8 degrees Fahrenheit, and weight is 257 pounds. GENERAL: The patient is awake, alert, oriented, appropriate, very pleasant demeanor. HEENT: Head is normocephalic, atraumatic. Extraocular movements intact and symmetrical. Oral cavity: Mucous membranes moist and pink. Dentition is intact. NECK: Shows anterior throat supple without palpable lymphadenopathy noted. Swallow reflex symmetrical. CHEST: Shows normal with inspection. Breath sounds clear to auscultation bilaterally. HEART: Shows S1, S2 clear. No murmurs auscultated. ABDOMEN: Soft, nontender, nondistended, obese. No palpable organomegaly is noted. No rebound or guarding demonstrated. BACK: Shows spine grossly in the midline, normal-appearing cervical lordotic curvature, slight increase in thoracic kyphosis and some minor flattening of lumbar lordotic curvature. Lumbar paraspinous muscle shows symmetrical on inspection. With palpation shows some moderate tenderness diffusely bilaterally, but only diffusely without significant radiation. The patient has good rotational motion of lumbar spine, both laterally as well as extension and flexion without significant pain reported. EXTREMITIES: Lower extremities show deep tendon reflexes at 1+ in the patellar and tendo-calcaneus tendons. Motor exam is approximately 4 on a scale of 5, but equal and symmetrical dorsiflexion, extension, quadriceps and hamstring flexion. Peripheral pulses are 1+ posterior tibia. No peripheral edema is noted. Options were discussed with the patient. The patient's old chart was reviewed as her current medication regimen updated. Current review of systems updated today as well. We will proceed with a lumbar epidural steroid injection today, the second in the series, with fluoroscopic guidance. Risks were again discussed including, but not limited to bleeding, infection, possibility of epidural hematoma, subsequent neurologic compromise, dural puncture, headaches, spinal cord and/or nerve damage, side effects of steroid medication and poor results regarding pain control. The patient understands and wished to proceed. The patient will return to clinic in approximately 2 weeks for followup, was counseled on return appointment, activity level and side effects to be aware of. DIAGNOSIS: Lumbar radiculopathy with lumbar degenerative disk disease, lumbar spinal stenosis. PROCEDURE: Lumbar epidural steroid injection, translaminar approach L4-L5 level using C-arm fluoroscopic guidance under sterile prep and drape using local anesthetic. MEDICATION INJECTED: A total of 120 mg Depo-Medrol plus 10 mL of preservative-free normal saline and 2 mL of Isovue for contrast. CONDITION AT DISCHARGE: Stable. The patient tolerated procedure well, had no complications. RK BRAGG MD DR: MARCELLA/keyanna JOB#: [id number] / [id number]
== END | disposition home or self-care (01) ==
LOC: PNCL 08:23
PROVIDERS: ATTEND Anesthesiology
DX: M51.16 Intervertebral disc disorders with radiculopathy, lumbar region (principal); M48.061 Spinal stenosis, lumbar region without neurogenic claudication; Z88.0 Allergy status to penicillin; Z88.2 Allergy status to sulfonamides; Z88.1 Allergy status to other antibiotic agents
CPT/HCPCS: 62323; J1030; J1040; Q9965

== ENCOUNTER → 2018-08-02 | Outpatient (CLI) | payer MEDICARE, BC ==
[2017-08-10 21:25] VITALS: BP 168/72
[~2018-08-02] MED LIST changes: +ACET500T68 PO; -AMLO10TA6 PO; +AMLO10TA8 PO; +AZAT50TA20 PO; +BUPIVACAINE MPF 0.25% 10 ML VIAL. ONE; +CALC625T PO; -methylPREDNISolone ACETATE 40 MG/ML VIAL. ONE
--- NOTE | 2018-08-03 02:36 | PAIN ---
DATE OF SERVICE: 08/02/2018 PROGRESS NOTE FOR PAIN CLINIC DIAGNOSES: 1. Lumbar radiculopathy with lumbar degenerative disk disease and lumbar spinal stenosis. 2. Right shoulder joint pain with primary osteoarthritis, right shoulder joint. HISTORY OF PRESENT ILLNESS: The patient is a 68-year-old female who returns for followup status post lumbar epidural steroid injection x 2 for only about a 50% improvement overall. The patient reports still significant pain in the low back and legs and it is not working as well as she has had in the past. The patient reports that the pain is returning in the bilateral lower extremities as well as in the anterior thighs, medial thighs, posterior thighs, anterior lower leg and posterior lower leg with some cramping sensation. The patient is wearing a brace on her right foot secondary to some foot pain and she is seeing a calender let off helper for this tomorrow. The patient reports the pain in the legs and back is aching, cramping, radiating, on and off in intensity. The patient reports it is a 7 on a scale of 10 at its worst, 5 on average, 5 at its least and is a 5 today. The patient's chief complaint; however, is right shoulder pain becoming more noticeable. As she has had some surgery on her left shoulder in the past, she feels she has overused her right arm in the past, but it is still significantly painful. The patient does have significant osteoarthritis shown and some atrophy of the musculature on old MRI scan. The patient reports it is worse with any repetitive motions of the right arm and shoulder, reaching over her head, which is almost impossible. She is unable to abduct the shoulder more than about 20 degrees without significant pain in the joint itself. The patient reports no loss of motor function, but she has been favoring her right arm because of the pain more and more. The patient reports it awakens her from sleep occasionally, but not every night. PHYSICAL EXAMINATION: VITAL SIGNS: The patient's blood pressure 112/47, pulse 60, respirations 16, temperature 98.5 degrees Fahrenheit, height is 5 feet 4 inches and weight is 254 pounds. GENERAL: The patient is awake, alert, oriented, appropriate, very pleasant demeanor. HEENT: Head shows normocephalic and atraumatic. Extraocular movements are intact and symmetrical. Oral cavity: Mucous membranes are moist and pink. Dentition is intact. NECK: Shows anterior throat is supple without palpable lymphadenopathy noted. Swallow reflex is symmetrical. CHEST: Shows normal on inspection. Breath sounds are clear to auscultation bilaterally. HEART: Shows S1 and S2 clear. No murmurs are auscultated. ABDOMEN: Obese, soft, nontender and nondistended. No palpable organomegaly is noted. No rebound or guarding demonstrated. BACK: Shows spine grossly in the midline. Normal appearing thoracic kyphosis and lumbar lordotic curvature. Lumbar paraspinous muscle shows symmetrical on inspection. Slight exaggeration of the thoracic kyphosis as well. The patient's right shoulder shows significant tenderness with even moderate abduction past about 15-20 degrees as well as forward reaching and rearward reaching, moderate tenderness throughout the anterior, medial and posterior deltoid diffusely. No specific tenderness over the acromioclavicular joint. EXTREMITIES: The patient's upper extremities show deep tendon reflexes 2+ in the biceps and triceps tendons. Animal Humane Agent Supervisor strength is probably a 5 on a scale of 5 on the left and 4 on a scale of 5 on the right. Peripheral pulses are 2+ radial distribution. No peripheral edema is noted. Lower extremities show deep tendon reflexes at 1+ in the patella and tendo calcaneus. His motor exam is 4 on a scale of 5, equal and symmetrical with dorsiflexion, extension, quadriceps and hamstring flexion. Peripheral pulses are 1+ posterior tibia. No peripheral edema on the lower extremities. Options were discussed with the patient. The patient's old chart was reviewed as was her current medication regimen updated. Current review of systems updated today as well and we will proceed with a right intra-articular shoulder joint injection using fluoroscopic guidance. Risks were again discussed including, but not limited to bleeding, infection, possibility of intravascular injection sequelae, spread of local anesthetic and numbness, side effects of steroid medication, exposure to fluoroscopy and poor results regarding pain control. The patient understands and wished to proceed. The patient will return to the clinic in approximately 2 weeks for followup. She does have a neurology appointment with investigation or EMG for the lower extremities. We would like to see the results of this prior to any further intervention for her lumbar radiculopathy. The patient will follow up in approximately 2 weeks as scheduled. DIAGNOSES: Primary osteoarthritis, right shoulder joint with right shoulder joint pain. PROCEDURE: Right intra-articular shoulder joint injection using C-arm fluoroscopic guidance under sterile prep and drape using local anesthetic. MEDICATION INJECTED: A total of 80 mg of Depo-Medrol plus total of 3 mL of 0.25% bupivacaine and 2 mL of Isovue for contrast. CONDITION AT DISCHARGE: Stable. The patient tolerated the procedure well and had no complications. RK BRAGG MD DR: MARCELLA/keyanna JOB#: [id number] / [id number]
== END | disposition home or self-care (01) ==
LOC: PNCL 10:31
PROVIDERS: ATTEND Anesthesiology
DX: M19.011 Primary osteoarthritis, right shoulder (principal); M51.16 Intervertebral disc disorders with radiculopathy, lumbar region; M48.061 Spinal stenosis, lumbar region without neurogenic claudication; Z88.0 Allergy status to penicillin; Z88.2 Allergy status to sulfonamides; Z88.1 Allergy status to other antibiotic agents
CPT/HCPCS: 20610; 77002; J1040; J3490; Q9965

== ENCOUNTER → 2018-08-28 | Outpatient (CLI) | payer MEDICARE, BC ==
[2017-08-10 21:25] VITALS: BP 168/72
[~2018-08-28] MED LIST changes: -BUPIVACAINE MPF 0.25% 10 ML VIAL. ONE; -IOHEXOL 180 MG/ML 10 ML VIAL. ONE; -methylPREDNISolone ACETATE 80 MG/ML VIAL. ONE
--- NOTE | 2018-08-28 13:33 | KCIC ---
EXAMINATION: Magnetic resonance imaging (MRI) of the lumbar spine without contrast 08/28/2018 12:30 PM HISTORY: Chronic midline low back pain without sciatica TECHNIQUE: Multiplanar multi-weighted MRI of the lumbar spine was performed without intravenous contrast using the standard lumbar spine protocol. Contrast information: None administered. COMPARISON: None available. FINDINGS: There is grade 1 anterolisthesis of L4 on L5. Vertebral body heights are maintained. Marrow signal intensity is normal in all sequences. There is mild disc height loss at L1-L2 with mild anterior marginal osteophytosis. There is moderate disc height loss at L2-L3. There is mild disc height loss at L3-L4. Mild disc height loss at L5-S1. Vacuum disc phenomena is noted at L2-L3 and L1-L2. Spinal cord signal intensity is normal in all sequences. Conus medullaris terminates at L1. Abdominal aorta is normal in caliber. No suspicious retroperitoneal abnormality is identified. Bilateral renal cortical cysts are identified measuring up to 17 mm in superior pole the right kidney. L1-L2: There is a posterior disc osteophyte complex asymmetric to the right. There is moderate facet arthropathy. There is moderate bilateral neuroforaminal stenosis. Mild to moderate spinal canal stenosis. L2-L3: There is a moderate circumferential disc bulge. There is moderate facet arthropathy. There is moderate bilateral neuroforaminal stenosis, right greater than left. There is mild spinal canal stenosis. L3-L4: There is mild circumferential disc bulge. There is moderate facet arthropathy ligamentum flavum infolding. There is mild left neuroforaminal stenosis. No spinal canal stenosis. L4-L5: There is uncovering of the disc secondary to anterolisthesis. There is mild disc bulge asymmetric to the left. There is severe facet arthropathy. There is mild to moderate left neuroforaminal stenosis. No significant pars defect is identified. L5-S1: There is mild disc bulge asymmetric to the left. There is moderate facet arthropathy. There is mild left neuroforaminal stenosis. No spinal canal stenosis. IMPRESSION: Moderate degenerative changes of the lumbar spine, as described in detail above. Electronically signed by: Shannan Yao MD (08/28/2018 1:30 PM) [email or web address]
== END | disposition home or self-care (01) ==
LOC: KCIC MRI 12:30
DX: M47.26 Other spondylosis with radiculopathy, lumbar region (principal); M51.17 Intervertebral disc disorders with radiculopathy, lumbosacral region; M48.061 Spinal stenosis, lumbar region without neurogenic claudication; M12.88 Other specific arthropathies, not elsewhere classified, other specified site; N28.1 Cyst of kidney, acquired
CPT/HCPCS: 72148

== ENCOUNTER → 2018-09-13 | Outpatient (CLI) | payer MEDICARE, BC ==
[2017-08-10 21:25] VITALS: BP 168/72
[~2018-09-13] MED LIST changes: +IOHEXOL 180 MG/ML 10 ML VIAL. ONE; +methylPREDNISolone ACETATE 40 MG/ML VIAL. ONE; +methylPREDNISolone ACETATE 80 MG/ML VIAL. ONE
--- NOTE | 2018-09-14 03:32 | PAIN ---
DATE OF SERVICE: 09/13/2018 DIAGNOSES: Lumbar radiculopathy with lumbar degenerative disk disease, lumbar spinal stenosis. HISTORY OF PRESENT ILLNESS: The patient is a 68-year-old female who returns for followup status post lumbar epidural steroid injections x 2, last seen for epidural injection 06/28/2018, also right shoulder injection 08/02/2018 and did very well with this. Reports that is doing much better in the shoulder, but her main complaint is pain in the low back and left greater than right lower extremity. The patient reports it is cramping, aching, sharp, dull, also constant, becoming more severe, radiating to the legs. The patient is somewhat frustrated as she is still having significant pain. We discussed some options with she and her daughter, who accompanied her visit today and we will order some water therapy for her as well. The patient reports that she cannot get up and down easily. She loses her balance as well. She is using a walker to ambulate at all times. She did have EMG and nerve conduction study, which she reports were negative. We have requested those results as well. At the time of this dictation, the patient reports it is waking her from sleep at times, but not every night. Otherwise, she is doing well after the last injection, but only by about a 50% improvement. The patient reports the pain has returned now in low back, bilateral posterior gluteus, posterior lateral thigh, lateral anterior thigh, medial thigh, medial lower legs, again left greater than right. The patient rates it as 10 on a scale of 10 at its worst, 9 on average, 9 at least, and is a 9 today. PHYSICAL EXAMINATION: VITAL SIGNS: The patient's blood pressure is 135/79, pulse 80, respirations are 16, temperature is 98.0 degrees Fahrenheit, height is 5 feet 4 inches, weight is 255 pounds. GENERAL: The patient is awake, alert, oriented, appropriate, very pleasant demeanor. HEENT: Shows normocephalic, atraumatic. Extraocular movements are intact and symmetrical. Oral cavity: Mucous membranes moist and pink. Dentition is intact. NECK: Shows anterior throat supple without palpable lymphadenopathy noted. Swallow reflex is symmetrical. CHEST: Shows normal on inspection. Breath sounds are clear to auscultation bilaterally. HEART: Shows S1, S2 clear. No murmurs auscultated. ABDOMEN: Soft, nontender, nondistended, is obese, but no palpable organomegaly is noted. No rebound or guarding demonstrated. BACK: Shows spine grossly in the midline. Normal appearing thoracic kyphosis and some minor flattening of lumbar lordotic curvature. Lumbar paraspinous muscle shows symmetrical on inspection. With palpation shows some moderate tenderness diffusely bilaterally, but only diffusely in the middle and lower distribution of paraspinous muscles. The patient has good rotational motion of lumbar spine, both laterally as well as extension and flexion without difficulty. There is some mild tenderness over the posterior superior iliac spines and sacroiliac regions, but only mildly bilaterally. EXTREMITIES: Lower extremities show deep tendon reflexes 1+ in patellar and tendo calcaneus tendons. Motor exam is strong with approximately 4 on a scale of 5, but equal and symmetrical with dorsiflexion, extension, quadriceps and hamstring flexion. Peripheral pulses are 1+ posterior tibia. No peripheral edema is noted. Options were discussed with the patient. The patient's old chart was reviewed as was her current medication regimen updated. Current review of systems is updated today as well. We will proceed with a third in a series of lumbar epidural steroid injection today with fluoroscopic guidance. Risks were again discussed including, but not limited to bleeding, infection, possibility of epidural hematoma, subsequent neurological compromise, dural puncture, headaches, spinal cord and/or nerve damage, side effects of steroid medication and poor results regarding pain control. The patient understands and wished to proceed. The patient will return to the clinic in approximately 2 weeks for followup, was counseled on return appointment, activity level and side effects to be aware of. DIAGNOSIS: Lumbar radiculopathy with lumbar spinal stenosis, lumbar degenerative disk disease. PROCEDURE: Lumbar epidural steroid injection, translaminar approach at L4-L5 level using C-arm fluoroscopic guidance under sterile prep and drape using local anesthetic. MEDICATION INJECTED: A total of 120 mg Depo-Medrol plus 10 mL of preservative-free normal saline and 2 mL of Isovue for contrast. CONDITION AT DISCHARGE: Stable. The patient tolerated the procedure well, had no complications. RK BRAGG MD DR: MARCELLA/keyanna JOB#: [id number] / [id number]
== END | disposition home or self-care (01) ==
LOC: PNCL 13:59
PROVIDERS: ATTEND Anesthesiology
DX: M51.16 Intervertebral disc disorders with radiculopathy, lumbar region (principal); M48.061 Spinal stenosis, lumbar region without neurogenic claudication; Z88.0 Allergy status to penicillin; Z88.2 Allergy status to sulfonamides; Z88.1 Allergy status to other antibiotic agents
CPT/HCPCS: 62323; J1030; J1040; Q9965

== ENCOUNTER → 2018-09-27 | Outpatient (CLI) | payer MEDICARE, BC ==
[2017-08-10 21:25] VITALS: BP 168/72
[~2018-09-27] MED LIST changes: -IOHEXOL 180 MG/ML 10 ML VIAL. ONE; -methylPREDNISolone ACETATE 40 MG/ML VIAL. ONE; -methylPREDNISolone ACETATE 80 MG/ML VIAL. ONE
--- NOTE | 2018-09-28 00:39 | PAIN ---
DATE OF SERVICE: 09/27/2018 PROGRESS NOTE FOR PAIN CLINIC DIAGNOSES: 1. Lumbar radiculopathy with lumbar spinal stenosis, lumbar degenerative disk disease. 2. Right shoulder joint pain with primary osteoarthritis. HISTORY OF PRESENT ILLNESS: The patient is a 68-year-old female who returns for followup status post lumbar epidural steroid injection x 3. The patient reports about 80% improvement after her last injection, still hanging on and doing well especially with the left leg, but still some significant pain across the low back and into the right leg. The patient reports it is a 9 on a scale of 10 at its worst, 9 on average, 8 at its least and is an 8 today. The patient reports it is aching, sharp, tight, cramping, on and off in intensity. The patient has had a new foot orthotic brace fitted even as early as today, which she feels is not helping and she has an eversion of the right foot when she is walking and trying to correct this is causing a lot of knee pain as well. The patient reports otherwise her back is doing much better and the left lower extremity significantly improved, but still some pain in the right lower extremity and across the low back. The patient reports it awakens her from sleep occasionally, but usually sleeps about 4-6 hours without significant discomfort. The patient reports no new motor or sensory deficits, no new bowel or bladder incontinence or other complaints. PHYSICAL EXAMINATION: VITAL SIGNS: The patient's blood pressure is 125/64, pulse 101, respirations 18, temperature 98.0 degrees Fahrenheit, height is 5 feet 4 inches, weight is 254 pounds. GENERAL: The patient is awake, alert, oriented, appropriate, very pleasant demeanor. HEENT: Head shows normocephalic, atraumatic. Extraocular movements intact and symmetrical. Oral cavity shows mucous membranes moist and pink. Dentition is intact. NECK: Shows anterior throat supple without palpable lymphadenopathy noted. Swallow reflex is symmetrical. CHEST: Shows normal on inspection. Breath sounds are clear to auscultation bilaterally. HEART: Shows S1, S2 clear. No murmurs auscultated. ABDOMEN: Soft, nontender, nondistended. No palpable organomegaly is noted. No rebound or guarding demonstrated. BACK: Shows spine grossly in the midline. Normal appearing thoracic kyphosis and some slight increase in thoracic kyphotic curvature and some flattening of lumbar lordotic curvature. Lumbar paraspinous muscle shows symmetrical on inspection, with palpation shows some moderate tenderness diffusely bilaterally, but only diffusely without radiation. The patient has good rotational motion of lumbar spine without significant difficulty. EXTREMITIES: Lower extremities show deep tendon reflexes at 1+ in the patellar and tendo-calcaneus tendons. Motor exam is approximately 4 on a scale of 5, but equal with dorsiflexion and extension and symmetrical. Peripheral pulses are 1+ in posterior tibial bilaterally. Options were discussed with the patient. The patient's old chart was reviewed as her current medication regimen updated. Current review of systems updated today as well. We will reorder water pool physical therapy. As the patient was unable to make her last appointment, we will reorder this for her. She is very interested in getting to the therapy with pool and hope this will help the pain in her back as well as her knees and feet especially on the right side. The patient will follow up once physical therapy is started and/or completed and we will reassess the patient at that time. RK BRAGG MD DR: MARCELLA/keyanna JOB#: [id number] / [id number]
== END | disposition home or self-care (01) ==
LOC: PNCL 13:10
PROVIDERS: ATTEND Anesthesiology
DX: M51.16 Intervertebral disc disorders with radiculopathy, lumbar region (principal); M48.061 Spinal stenosis, lumbar region without neurogenic claudication; M19.011 Primary osteoarthritis, right shoulder
CPT/HCPCS: G0463

== ENCOUNTER → 2018-12-11 | Outpatient (CLI) | payer MEDICARE, BC ==
[2017-08-10 21:25] VITALS: BP 168/72
[~2018-12-11] MED LIST changes: +IOHEXOL 180 MG/ML 10 ML VIAL. ONE; +methylPREDNISolone ACETATE 40 MG/ML VIAL. ONE; +methylPREDNISolone ACETATE 80 MG/ML VIAL. ONE
--- NOTE | 2018-12-11 08:45 | PAIN ---
DATE OF SERVICE: 12/11/2018 DIAGNOSES: Lumbar radiculopathy with lumbar spinal stenosis, lumbar degenerative disk disease. HISTORY OF PRESENT ILLNESS: The patient is a 68-year-old female who returns for followup status post lumbar epidural steroid injection x 3, most recently 09/13/2018. The patient did very well with about 80% improvement, still pain in the low back and into the right lower extremity as it was previously. The patient reports she is doing much better though, she has graduated from her walker to a cane and she is only using a cane today. The patient reports her pain in the last week though has increased with a 9 on a scale of 10 at its worst, 8 on average, 7 at its least and is an 8 today. The patient reports it is cramping, sharp, radiating, becoming more severe in the low back, posterior gluteus, lateral thigh, lateral anterior thigh, medial thigh and posterior calf on the right side, worse with walking and standing. The patient reports no new motor or sensory deficits, no new bowel or bladder incontinence. Reports she was doing much better with increased activity, distance walking, doing household activity as well as travelling with greater ease and comfort. PHYSICAL EXAMINATION: VITAL SIGNS: The patient's blood pressure 135/57, pulse 63, respirations 18, temperature 97.5 degrees Fahrenheit, height is 5 feet 4 inches, weighs 252 pounds. GENERAL: The patient is awake, alert, oriented, appropriate, very pleasant demeanor. HEENT: Head is normocephalic, atraumatic. Extraocular movements are intact and symmetrical. Oral cavity: Mucous membranes are moist and pink. Dentition is intact. NECK: Shows anterior throat supple without palpable lymphadenopathy noted. Swallow reflex is symmetrical. CHEST: Shows normal with inspection. Breath sounds clear to auscultation bilaterally. HEART: Shows S1 and S2 clear. No murmurs auscultated. ABDOMEN: Soft, nontender, nondistended. No palpable organomegaly is noted. No rebound or guarding demonstrated. BACK: Shows spine grossly in the midline. Normal appearing thoracic kyphosis, mild flattening of lumbar lordotic curvature. Lumbar paraspinous muscle shows symmetrical on inspection. On palpation, she does have some moderate tenderness diffusely bilaterally, but only diffusely without radiation. The patient has good rotational motion of lumbar spine, both laterally as well as extension and flexion without difficulty. EXTREMITIES: The patient's lower extremities show deep tendon reflexes 1+ in the patellar and tendo calcaneus tendons. Motor exam is strong with 4 on a scale of 5 with equal dorsiflexion, extension, quadriceps and hamstring flexion. Peripheral pulses are 1+ posterior tibia. No peripheral edema is noted bilaterally. Options were discussed with the patient. The patient's old chart was reviewed as her current medication regimen updated. Current review of systems updated today as well. We will proceed with the first in the series of lumbar epidural steroid injection today with fluoroscopic guidance. Risks were again discussed including, but not limited to bleeding, infection, possibility of epidural hematoma and subsequent neurological compromise, dural puncture, headaches, spinal cord and/or nerve damage, side effects of steroid medication and poor results regarding pain control. The patient understands and wished to proceed. The patient will return to clinic in approximately 2 weeks for followup, was counseled on return appointment, activity level and side effects to be aware of. DIAGNOSES: Lumbar radiculopathy with lumbar spinal stenosis, lumbar degenerative disk disease. PROCEDURE: Lumbar epidural steroid injection, translaminar approach L4-L5 level using C-arm fluoroscopic guidance under sterile prep and drape using local anesthetic. MEDICATION INJECTED: A total of 120 mg Depo-Medrol plus 10 mL of preservative-free normal saline and 2 mL of contrast. CONDITION AT DISCHARGE: Stable. The patient tolerated procedure well, had no complications. RK BRAGG MD DR: MARCELLA/keyanna JOB#: [id number] / [id number]
== END ==
LOC: PNCL 07:42
PROVIDERS: ATTEND Anesthesiology
DX: M51.16 Intervertebral disc disorders with radiculopathy, lumbar region (principal); M48.061 Spinal stenosis, lumbar region without neurogenic claudication
CPT/HCPCS: 62323; J1030; J1040; Q9965